=== PATIENT | female | born 1935 | race Two or more races ===

== ENCOUNTER 2019-08-24 12:39 | Inpatient (IN) | payer MEDICAID ==
[~2019-08-24] VITALS: Ht 165.1 cm; Wt 57.6 kg
[~2019-08-24 12:39] MED LIST: ASPIRIN81 MG ORAL; ATENOLOL25 MG ORAL; BENAZEPRIL HCL20 MG ORAL; CA CARBONATE PO; CARBIDOPA-LEVO1 EA12 PO; DOCUSATE SODIU100 MG ORAL; FOLIC ACID1 MG ORAL; LEVAQUIN500 MG ORAL; LOTENSIN40 MG ORAL; SINEMET 10-1001 EACH ORAL; TENORMIN25 MG ORAL; TYLENOL650 MG/20. ORAL; ZOCOR20 MG ORAL
--- NOTE | 2019-08-24 12:50 | NUR ---
ED Nurse Note: patient brought into ED from home by her family members. per family, patient is more confused than usual, patient is unable to swallow juice and sit straight by herself since this morning around 5AM today. patient is alert awake, on a hospital gown, on a monitoring and evaluation advisor. family at bedside.
--- NOTE | 2019-08-24 12:50 | NUR ---
Note neryone in EDM - 08/24/19 at 1417 by CORY ED Nurse Note: patient brought into ED from home by her family members. per family, patient is more confused than usual, patient is unable to swallow juice and sit straight by herself since this morning around 5AM today. patient c/o brougth by family member from home due to weakness. per family member, pt became confused and unable to swallow juice and sit straight herselft since this morning around 0500. at the triage pt able to follow command and oriented x2. BS 251 at the bed side.
[2019-08-24 14:00] VITALS: BP 110/42
[2019-08-24] MEDS ORDERED: AMLODIPINE BES2.5 MG ORAL (14:03)
[2019-08-24] MEDS ORDERED: ATORVASTATIN CA20 MG ORAL (14:03)
--- NOTE | 2019-08-24 14:03 | NUR ---
ED Nurse Note: Faiza ([facility]) [phone]
[2019-08-24 14:04] LABS: HEMATOCRIT 24.8 % (37.0-47.0); HEMOGLOBIN 8.2 G/DL (12.0-16.0); MEAN CORPUSCULAR VOLUME 86 FL (80-99); PLATELET COUNT 323 K/UL (150-450); RED BLOOD COUNT 2.88 M/UL (4.20-5.40); RED CELL DISTRIBUTION WIDTH 11.9 % (11.6-14.8); WHITE BLOOD COUNT 19.5 K/UL (4.8-10.8)
[2019-08-24 14:15] LABS: ANION GAP 10 mmol/L (5-15); BLOOD UREA NITROGEN 28 mg/dL (7-18); CALCIUM 8.7 MG/DL (8.5-10.1); CARBON DIOXIDE 25 MMOL/L (21-32); CHLORIDE 101 MMOL/L (98-107); CREATININE 1.7 MG/DL (0.55-1.30); POTASSIUM 3.8 MMOL/L (3.5-5.1); SODIUM 136 MMOL/L (136-145)
[2019-08-24 14:29] LABS: ALANINE AMINOTRANSFERASE 10 U/L (12-78); ALBUMIN 2.4 G/DL (3.4-5.0); ALBUMIN/GLOBULIN RATIO 0.5 (1.0-2.7); ALKALINE PHOSPHATASE 102 U/L (46-116); ASPARTATE AMINO TRANSFERASE 43 U/L (15-37); BILIRUBIN,TOTAL 0.4 MG/DL (0.2-1.0); CREATINE KINASE 1387 U/L (26-308)
--- NOTE | 2019-08-24 14:45 | Emergency Room Report ---
History of Present Illness General Chief Complaint: Generalized Weakness Source: Family Member, Medical Record Present Illness HPI 84-year-old female presents ED for evaluation. Brought in by family for altered mental status. Per family patient started calling for help around 5 AM today. Per daughter patient appears more lethargic and confused. Normally oriented x2. Ambulates. Upon arrival patient unable to provide any additional history at this time. No signs of distress upon arrival. No other aggravating relieving factors. No other associated symptoms Allergies: Coded Allergies: No Known Allergies (Unverified , 10/23/13) Patient History Past Medical History: DM, HTN, dementia Past Surgical History: none Pertinent Family History: none Social History: Denies: smoking, alcohol use, drug use Now: No Immunizations: UTD Reviewed Nursing Documentation: PMH: Agreed; PSxH: Agreed Nursing Documentation-PMH Past Medical History: No History, Except For Hx Cardiac Problems: Yes Hx Hypertension: Yes Hx Diabetes: Yes Hx Cancer: No Hx Gastrointestinal Problems: Yes Hx Neurological Problems: Yes Hx Parkinson's Disease: Yes Hx Seizures: No - Parkisonism Hx Weakness: Yes - generalized Hx Neurologic Surgery: No Hx Brain Shunt: No Review of Systems All Other Systems: limited Physical Exam Vital Signs Date Time Temp Pulse Resp B/P (MAP) Pulse Ox O2 Delivery O2 Flow Rate FiO2 08/24/19 12:45 97.3 60 10 92/35 (54) 100 Room Air Sp02 EP Interpretation: reviewed, normal General Appearance: cachetic, thin, other - nonverbal Head: normocephalic Eyes: bilateral eye normal inspection, bilateral eye PERRL ENT: normal ENT inspection Neck: normal inspection Respiratory: chest non-tender, lungs clear, normal breath sounds, speaking full sentences Cardiovascular #1: regular rate, rhythm, no edema Gastrointestinal: normal bowel sounds, non tender, soft, non-distended, no guarding, no rebound Rectal: deferred Genitourinary: no CVA tenderness Musculoskeletal: normal inspection Neurologic: other - nonverbal Psychiatric: other - nonverbal Skin: other - see nursing skin notes Lymphatic: normal inspection Procedures Critical Care Time Critical Care Time i. I feel this is a highly complex case requiring extensive working including EKG/Rhythm strip, Xray/CT/US, Blood/urine lab work, repeat exams while in ED, and administration of strong opiates/narcotics for pain control, admission to hospital or close patient follow up. Total time: 60 min bedside evaluation and treatment excludes procedures (EKG). Reason for critical care: hypotension, elevated troponin Possible complications: hypotension, hypertension, NC, shock, arrhythmias, metabolic acidosis, end organ damage, respiratory failure. Interventions: Labs, IV fluids, EKG, chest x-ray, CT head, broad-spectrum antibiotics, IV fluid boluses, heparin Course: Patient brought in by EMS from home. Altered since this morning. CT head negative. WBC elevated, BUN/creatinine elevated control, troponin elevated , UA positive. Given 30 cc/kg fluid bolus. Initially hypotensive improved with IV fluids. Given broad-spectrum antibiotics. Given heparin Consultations: nursing staff, EMS, family Performed by: Dr Brito Tolerated well condition = critical j. because of unstable vital signs this patient had a condition that could potentially threaten life or limb. I feel this is a critical patient who required my full attention while patient was considered critical. Total Critical Care Time excluding procedures was greater than 60 minutes Medical Decision Making Diagnostic Impression: Primary Impression: UTI (lower urinary tract infection) Additional Impressions: AMS (altered mental status) Qualified Codes: R41.82 - Altered mental status, unspecified Renal insufficiency NSTEMI (non-ST elevated myocardial infarction) ER Course Hospital Course 84-year-old female presenting to ED with generalized weakness, weakness since this morning Differential diagnoses include: Pneumonia, UTI, sepsis, dehydration, NC/ unstable angina Clinical course Patient placed on stretcher. On coffee shop aide with hypotension ED course. After initial history and physical, I ordered labs, IV fluids, EKG, chest x-ray , blood cultures, UA. CT head no acute process EKG - LBBB, no acute ischemic changes interpreted by me Labs - BUN/Cr elevated, noted leukocytosis, troponins > 0.6, UA grossly positive for UTI CXR - vascular congestion noted Abx given. Initially hypotensive. Given 30 cc/kg fluid bolus with BP improving. Patient never noted chest pain. Likely demand ischemia. heparin started. Case discussed with Dr Serna and they agreed to admit patient to their service for further care and support I feel this is a highly complex case requiring extensive working including EKG/ Rhythm strip, Xray/CT/US, Blood/urine lab work, repeat exams while in ED, and administration of strong opiates/narcotics for pain control, admission to hospital or close patient follow up. Diagnosis - UTI, AMS, renal insufficiency, NSTEMI Patient admitted to SDU in condition Labs Test 08/24/19 13:25 08/24/19 13:45 08/24/19 14:25 08/24/19 18:50 White Blood Count 19.5 K/UL (4.8-10.8) Red Blood Count 2.88 M/UL (4.20-5.40) Hemoglobin 8.2 G/DL (12.0-16.0) Hematocrit 24.8 % (37.0-47.0) Mean Corpuscular Volume 86 FL (80-99) Mean Corpuscular Hemoglobin 28.4 PG (27.0-31.0) Mean Corpuscular Hemoglobin Concent 32.9 G/DL (32.0-36.0) Red Cell Distribution Width 11.9 % (11.6-14.8) Platelet Count 323 K/UL (150-450) Mean Platelet Volume 5.9 FL (6.5-10.1) Neutrophils (%) (Auto) % (45.0-75.0) Lymphocytes (%) (Auto) % (20.0-45.0) Monocytes (%) (Auto) % (1.0-10.0) Eosinophils (%) (Auto) % (0.0-3.0) Basophils (%) (Auto) % (0.0-2.0) Differential Total Cells Counted 100 Neutrophils % (Manual) 95 % (45-75) Lymphocytes % (Manual) 2 % (20-45) Monocytes % (Manual) 3 % (1-10) Eosinophils % (Manual) 0 % (0-3) Basophils % (Manual) 0 % (0-2) Band Neutrophils 0 % (0-8) Platelet Estimate Adequate Platelet Morphology Normal Hypochromasia 1+ Sodium Level 136 MMOL/L (136-145) Potassium Level 3.8 MMOL/L (3.5-5.1) Chloride Level 101 MMOL/L (98-107) Carbon Dioxide Level 25 MMOL/L (21-32) Anion Gap 10 mmol/L (5-15) Blood Urea Nitrogen 28 mg/dL (7-18) Creatinine 1.7 MG/DL (0.55-1.30) Estimat Glomerular Filtration Rate mL/min (>60) Glucose Level 276 MG/DL (74-106) Lactic Acid Level 1.80 mmol/L (0.4-2.0) Calcium Level 8.7 MG/DL (8.5-10.1) Total Bilirubin 0.4 MG/DL (0.2-1.0) Aspartate Amino Transf (AST/SGOT) 43 U/L (15-37) Alanine Aminotransferase (ALT/SGPT) 10 U/L (12-78) Alkaline Phosphatase 102 U/L (46-116) Total Creatine Kinase 1387 U/L (26-308) Troponin I 0.601 ng/mL (0.000-0.056) 0.636 ng/mL (0.000-0.056) Pro-B-Type Natriuretic Peptide 71487 pg/mL (0-125) Total Protein 7.3 G/DL (6.4-8.2) Albumin 2.4 G/DL (3.4-5.0) Globulin 4.9 g/dL Albumin/Globulin Ratio 0.5 (1.0-2.7) Prothrombin Time 12.3 SEC (9.30-11.50) Prothromb Time International Ratio 1.2 (0.9-1.1) Activated Partial Thromboplast Time 33 SEC (23-33) Urine Color Yellow Urine Appearance Slightly cloudy Urine pH 5 (4.5-8.0) Urine Specific [place] 1.015 (1.005-1.035) Urine Protein 2+ (NEGATIVE) Urine Glucose (UA) 3+ (NEGATIVE) Urine Ketones Negative (NEGATIVE) Urine Blood 4+ (NEGATIVE) Urine Nitrite Negative (NEGATIVE) Urine Bilirubin Negative (NEGATIVE) Urine Urobilinogen Normal MG/DL (0.0-1.0) Urine Leukocyte Esterase 3+ (NEGATIVE) Urine RBC 5-10 /HPF (0 - 2) Urine WBC 30-40 /HPF (0 - 2) Urine Squamous Epithelial Cells Few /LPF (NONE/OCC) Urine Bacteria Moderate /HPF (NONE) Test 08/24/19 21:15 08/25/19 04:45 Activated Partial Thromboplast Time 42 SEC (23-33) 91 SEC (23-33) White Blood Count 24.7 K/UL (4.8-10.8) Red Blood Count 3.11 M/UL (4.20-5.40) Hemoglobin 8.7 G/DL (12.0-16.0) Hematocrit 26.2 % (37.0-47.0) Mean Corpuscular Volume 84 FL (80-99) Mean Corpuscular Hemoglobin 28.1 PG (27.0-31.0) Mean Corpuscular Hemoglobin Concent 33.3 G/DL (32.0-36.0) Red Cell Distribution Width 11.9 % (11.6-14.8) Platelet Count 316 K/UL (150-450) Mean Platelet Volume 6.9 FL (6.5-10.1) Neutrophils (%) (Auto) % (45.0-75.0) Lymphocytes (%) (Auto) % (20.0-45.0) Monocytes (%) (Auto) % (1.0-10.0) Eosinophils (%) (Auto) % (0.0-3.0) Basophils (%) (Auto) % (0.0-2.0) Sodium Level 133 MMOL/L (136-145) Potassium Level 3.6 MMOL/L (3.5-5.1) Chloride Level 104 MMOL/L (98-107) Carbon Dioxide Level 22 MMOL/L (21-32) Anion Gap 7 mmol/L (5-15) Blood Urea Nitrogen 35 mg/dL (7-18) Creatinine 2.0 MG/DL (0.55-1.30) Estimat Glomerular Filtration Rate mL/min (>60) Glucose Level 221 MG/DL (74-106) Calcium Level 8.1 MG/DL (8.5-10.1) Total Bilirubin 0.5 MG/DL (0.2-1.0) Aspartate Amino Transf (AST/SGOT) 68 U/L (15-37) Alanine Aminotransferase (ALT/SGPT) 14 U/L (12-78) Alkaline Phosphatase 85 U/L (46-116) Troponin I 0.707 ng/mL (0.000-0.056) Pro-B-Type Natriuretic Peptide 54595 pg/mL (0-125) Total Protein 6.6 G/DL (6.4-8.2) Albumin 2.1 G/DL (3.4-5.0) Globulin 4.5 g/dL Albumin/Globulin Ratio 0.5 (1.0-2.7) EKG Diagnostic Results Rate: normal Rhythm: NSR ST Segments: other - LBBB ASA given to the pt in ED: No Rhythm Strip Diag. Results EP Interpretation: yes Rhythm: NSR, no PVC's, no ectopy Chest X-Ray Diagnostic Results Chest X-Ray Diagnostic Results : Chest X-Ray Ordered: Yes # of Views/Limited/Complete: 1 View Indication: Other EP Interpretation: Yes Interpretation: no consolidation, no effusion, no pneumothorax, no acute cardiopulmonary disease Impression: Other - vascular congestion Electronically Signed by: Electronically signed by Salomón Brito MD CT/MRI/US Diagnostic Results CT/MRI/US Diagnostic Results : Imaging Test Ordered: CT head Impression FINDINGS: Brain: Unremarkable. No hemorrhage. No significant white matter disease. No edema. No intracranial hemorrhage or mass effect. No clear acute large vessel territorial infarct. Involutional and microvascular ischemic changes.. No ventriculomegaly. Bones/joints: Unremarkable. No acute fracture. Soft tissues: Unremarkable. Sinuses: Unremarkable as visualized. No acute sinusitis. Mastoid air cells: Unremarkable as visualized. No mastoid effusion. Last Vital Signs Date Time Temp Pulse Resp B/P (MAP) Pulse Ox O2 Delivery O2 Flow Rate FiO2 08/24/19 14:00 60 10 Room Air 08/24/19 14:00 97.3 110/42 100 Status: improved Disposition: ADMITTED INPATIENT Condition: Critical Referrals: NON PHYSICIAN (PCP) Salomón Brito MD Aug 24, 2019 14:45
--- NOTE | 2019-08-24 14:45 | Diagnostic Imaging Report ---
EXAM: XR Chest, 1 View CLINICAL HISTORY: AMS TECHNIQUE: Frontal view of the chest. COMPARISON: 01/27/16 FINDINGS: Lungs: Mild vascular congestion. Pleural space: Unremarkable. No pneumothorax. Heart: Borderline cardiomegaly, potentially exaggerated by portable technique. Mediastinum: Calcified aorta. Bones/joints: Osteopenia. Degenerative changes. IMPRESSION: Mild vascular congestion
--- NOTE | 2019-08-24 14:48 | Diagnostic Imaging Report ---
EXAM: CT Head Without Intravenous Contrast CLINICAL HISTORY: AMS TECHNIQUE: Axial computed tomography images of the head/brain without intravenous contrast. CTDI is 62.7 mGy and DLP is 1269.5 mGy-cm. One or more of the following dose reduction techniques were used: automated exposure control, adjustment of the mA and/or kV according to patient size, use of iterative reconstruction technique. COMPARISON: No relevant prior studies available. FINDINGS: Brain: Unremarkable. No hemorrhage. No significant white matter disease. No edema. No intracranial hemorrhage or mass effect. No clear acute large vessel territorial infarct. Involutional and microvascular ischemic changes.. No ventriculomegaly. Bones/joints: Unremarkable. No acute fracture. Soft tissues: Unremarkable. Sinuses: Unremarkable as visualized. No acute sinusitis. Mastoid air cells: Unremarkable as visualized. No mastoid effusion. IMPRESSION: No acute intracranial process
[2019-08-24 15:00] LABS: APPEARANCE,URINE SLIGHTLY CLOUDY; BILIRUBIN, URINE NEGATIVE (NEGATIVE); GLUCOSE, URINE (UA) 3+ (NEGATIVE); KETONES,URINE NEGATIVE (NEGATIVE); LEUKOCYTE ESTERASE ,URINE 3+ (NEGATIVE); NITRITE,URINE NEGATIVE (NEGATIVE); PH,URINE 5 (4.5-8.0); PROTEIN,URINE 2+ (NEGATIVE); UROBILINOGEN,URINE NORMAL MG/DL (0.0-1.0)
[2019-08-24] MEDS ORDERED: Piperacillin/Tazobactam 3.375 GM in NS 110 ML IVPB ONE (15:00)
[2019-08-24 15:06] LABS: INR 1.2 (0.9-1.1)
[2019-08-24 15:07] LABS: COLOR,URINE YELLOW
[2019-08-24] MEDS ORDERED: Heparin 25,000u/D5W 500ml 500 ML IV SCH ×2 (15:15→20:00)
--- NOTE | 2019-08-24 15:31 | NUR ---
ED Nurse Note: heparin drip started on the left AC20G without complication. family at bedside. Zosyn is running on RT AC20G without complication.
--- NOTE | 2019-08-24 15:34 | Cardiac Electrophysiology PN ---
Subjective Subjective [id number] Objective Last 24 Hour Vital Signs Date Time Temp Pulse Resp B/P (MAP) Pulse Ox O2 Delivery O2 Flow Rate FiO2 08/24/19 14:00 60 10 Room Air 08/24/19 14:00 97.3 75 13 110/42 100 Room Air 08/24/19 12:45 97.3 60 10 92/35 (54) 100 Room Air Laboratory Tests Test 08/24/19 13:25 08/24/19 13:45 08/24/19 14:25 White Blood Count 19.5 K/UL (4.8-10.8) H Red Blood Count 2.88 M/UL (4.20-5.40) L Hemoglobin 8.2 G/DL (12.0-16.0) L Hematocrit 24.8 % (37.0-47.0) L Mean Corpuscular Volume 86 FL (80-99) Mean Corpuscular Hemoglobin 28.4 PG (27.0-31.0) Mean Corpuscular Hemoglobin Concent 32.9 G/DL (32.0-36.0) Red Cell Distribution Width 11.9 % (11.6-14.8) Platelet Count 323 K/UL (150-450) Mean Platelet Volume 5.9 FL (6.5-10.1) L Neutrophils (%) (Auto) % (45.0-75.0) Lymphocytes (%) (Auto) % (20.0-45.0) Monocytes (%) (Auto) % (1.0-10.0) Eosinophils (%) (Auto) % (0.0-3.0) Basophils (%) (Auto) % (0.0-2.0) Differential Total Cells Counted 100 Neutrophils % (Manual) 95 % (45-75) H Lymphocytes % (Manual) 2 % (20-45) L Monocytes % (Manual) 3 % (1-10) Eosinophils % (Manual) 0 % (0-3) Basophils % (Manual) 0 % (0-2) Band Neutrophils 0 % (0-8) Platelet Estimate Adequate Platelet Morphology Normal Hypochromasia 1+ Sodium Level 136 MMOL/L (136-145) Potassium Level 3.8 MMOL/L (3.5-5.1) Chloride Level 101 MMOL/L (98-107) Carbon Dioxide Level 25 MMOL/L (21-32) Anion Gap 10 mmol/L (5-15) Blood Urea Nitrogen 28 mg/dL (7-18) H Creatinine 1.7 MG/DL (0.55-1.30) H Estimat Glomerular Filtration Rate mL/min (>60) Glucose Level 276 MG/DL (74-106) H Lactic Acid Level 1.80 mmol/L (0.4-2.0) Calcium Level 8.7 MG/DL (8.5-10.1) Total Bilirubin 0.4 MG/DL (0.2-1.0) Aspartate Amino Transf (AST/SGOT) 43 U/L (15-37) H Alanine Aminotransferase (ALT/SGPT) 10 U/L (12-78) L Alkaline Phosphatase 102 U/L (46-116) Total Creatine Kinase 1387 U/L (26-308) H Troponin I 0.601 ng/mL (0.000-0.056) Pro-B-Type Natriuretic Peptide 34533 pg/mL (0-125) H Total Protein 7.3 G/DL (6.4-8.2) Albumin 2.4 G/DL (3.4-5.0) L Globulin 4.9 g/dL Albumin/Globulin Ratio 0.5 (1.0-2.7) L Prothrombin Time 12.3 SEC (9.30-11.50) H Prothromb Time International Ratio 1.2 (0.9-1.1) H Activated Partial Thromboplast Time 33 SEC (23-33) Urine Color Yellow Urine Appearance Slightly cloudy Urine pH 5 (4.5-8.0) Urine Specific [place] 1.015 (1.005-1.035) Urine Protein 2+ (NEGATIVE) H Urine Glucose (UA) 3+ (NEGATIVE) H Urine Ketones Negative (NEGATIVE) Urine Blood 4+ (NEGATIVE) H Urine Nitrite Negative (NEGATIVE) Urine Bilirubin Negative (NEGATIVE) Urine Urobilinogen Normal MG/DL (0.0-1.0) Urine Leukocyte Esterase 3+ (NEGATIVE) H Urine RBC 5-10 /HPF (0 - 2) H Urine WBC 30-40 /HPF (0 - 2) H Urine Squamous Epithelial Cells Few /LPF (NONE/OCC) Urine Bacteria Moderate /HPF (NONE) H Luis Purdy MD Aug 24, 2019 15:34
--- NOTE | 2019-08-24 15:45 | NUR ---
ED Nurse Note: left foot and left hip unstageable eschar noted, pictures taken.
--- NOTE | 2019-08-24 15:57 | NUR ---
ED Nurse Note: report given to Yenni QUIROS, endorsed all plan of care to Yenni QUIROS.
[2019-08-24 16:00] VITALS: BP 115/62
--- NOTE | 2019-08-24 16:17 | NUR ---
ED Nurse Note: patient transferred to SDU with no belongings, as her belongings were taken by the family members to home. patient tx on ACLS protocol, endorsed all plan of care to Tianna QUIROS.
[2019-08-24 16:42] VITALS: BP 135/72
--- NOTE | 2019-08-24 16:42 | NUR ---
NURSE NOTES Received patient from ISHAAN Bowen from ER. Patient came in via gurney with family member at bedside. teletypesetter monitor initiated. Vital signs taken and recorded No belongings found. Patient is aox2, confused and andorran speaking. Noted wounds, will take pictures and will be uploaded. Noted patient having difficulty breathing. Patient placed on 3 L NC at this time saturation is okay and tolerating well. IV line noted with Heparin drip running. No active bleeding. Under the care of Dr. Butler. Will call Dr. Butler for admission orders.
--- NOTE | 2019-08-24 17:33 | Infectious Diseases Prog Note ---
Assessment/Plan Assessment/Plan Full consult dictated: A) 1) sepsis, uti, leukocytosis 2) pmh noted 3) allergies - nkda P) 1) zosyn 2) check urine culture, bc, labs 3) will follow 4) thank you Subjective Allergies: Coded Allergies: No Known Allergies (Unverified , 10/23/13) Objective Vital Signs Last 24 Hour Vital Signs Date Time Temp Pulse Resp B/P (MAP) Pulse Ox O2 Delivery O2 Flow Rate FiO2 08/24/19 16:17 97.3 72 13 115/62 100 Room Air 08/24/19 16:00 97.3 72 13 115/62 100 Room Air 08/24/19 14:00 60 10 Room Air 08/24/19 14:00 97.3 75 13 110/42 100 Room Air 08/24/19 12:45 97.3 60 10 92/35 (54) 100 Room Air Height (Feet): 5 Height (Inches): 3.00 Weight (Pounds): 108 Laboratory Tests Test 08/24/19 13:25 08/24/19 13:45 08/24/19 14:25 White Blood Count 19.5 K/UL (4.8-10.8) H Red Blood Count 2.88 M/UL (4.20-5.40) L Hemoglobin 8.2 G/DL (12.0-16.0) L Hematocrit 24.8 % (37.0-47.0) L Mean Corpuscular Volume 86 FL (80-99) Mean Corpuscular Hemoglobin 28.4 PG (27.0-31.0) Mean Corpuscular Hemoglobin Concent 32.9 G/DL (32.0-36.0) Red Cell Distribution Width 11.9 % (11.6-14.8) Platelet Count 323 K/UL (150-450) Mean Platelet Volume 5.9 FL (6.5-10.1) L Neutrophils (%) (Auto) % (45.0-75.0) Lymphocytes (%) (Auto) % (20.0-45.0) Monocytes (%) (Auto) % (1.0-10.0) Eosinophils (%) (Auto) % (0.0-3.0) Basophils (%) (Auto) % (0.0-2.0) Differential Total Cells Counted 100 Neutrophils % (Manual) 95 % (45-75) H Lymphocytes % (Manual) 2 % (20-45) L Monocytes % (Manual) 3 % (1-10) Eosinophils % (Manual) 0 % (0-3) Basophils % (Manual) 0 % (0-2) Band Neutrophils 0 % (0-8) Platelet Estimate Adequate Platelet Morphology Normal Hypochromasia 1+ Sodium Level 136 MMOL/L (136-145) Potassium Level 3.8 MMOL/L (3.5-5.1) Chloride Level 101 MMOL/L (98-107) Carbon Dioxide Level 25 MMOL/L (21-32) Anion Gap 10 mmol/L (5-15) Blood Urea Nitrogen 28 mg/dL (7-18) H Creatinine 1.7 MG/DL (0.55-1.30) H Estimat Glomerular Filtration Rate mL/min (>60) Glucose Level 276 MG/DL (74-106) H Lactic Acid Level 1.80 mmol/L (0.4-2.0) Calcium Level 8.7 MG/DL (8.5-10.1) Total Bilirubin 0.4 MG/DL (0.2-1.0) Aspartate Amino Transf (AST/SGOT) 43 U/L (15-37) H Alanine Aminotransferase (ALT/SGPT) 10 U/L (12-78) L Alkaline Phosphatase 102 U/L (46-116) Total Creatine Kinase 1387 U/L (26-308) H Troponin I 0.601 ng/mL (0.000-0.056) Pro-B-Type Natriuretic Peptide 13998 pg/mL (0-125) H Total Protein 7.3 G/DL (6.4-8.2) Albumin 2.4 G/DL (3.4-5.0) L Globulin 4.9 g/dL Albumin/Globulin Ratio 0.5 (1.0-2.7) L Prothrombin Time 12.3 SEC (9.30-11.50) H Prothromb Time International Ratio 1.2 (0.9-1.1) H Activated Partial Thromboplast Time 33 SEC (23-33) Urine Color Yellow Urine Appearance Slightly cloudy Urine pH 5 (4.5-8.0) Urine Specific [place] 1.015 (1.005-1.035) Urine Protein 2+ (NEGATIVE) H Urine Glucose (UA) 3+ (NEGATIVE) H Urine Ketones Negative (NEGATIVE) Urine Blood 4+ (NEGATIVE) H Urine Nitrite Negative (NEGATIVE) Urine Bilirubin Negative (NEGATIVE) Urine Urobilinogen Normal MG/DL (0.0-1.0) Urine Leukocyte Esterase 3+ (NEGATIVE) H Urine RBC 5-10 /HPF (0 - 2) H Urine WBC 30-40 /HPF (0 - 2) H Urine Squamous Epithelial Cells Few /LPF (NONE/OCC) Urine Bacteria Moderate /HPF (NONE) H Current Medications Medications (Trade) Dose Ordered Sig/Krystin Route PRN Reason Start Time Stop Time Status Last Admin Dose Admin Aspirin (ASA) 81 mg DAILY ORAL 08/25/19 09:00 09/24/19 08:59 Heparin Sodium/ Dextrose 500 ml @ 13.063 mls/ hr ADJUST PER PROTOCOL IV 08/24/19 15:15 09/23/19 15:14 08/24/19 15:31 Metoprolol Tartrate (Lopressor) 25 mg EVERY 12 HOURS ORAL 08/24/19 21:00 09/23/19 20:59 Sodium Chloride 1,000 ml @ 200 mls/hr Q5H IV 08/24/19 14:30 09/23/19 14:29 08/24/19 14:51 Gerardo Toledo MD Aug 24, 2019 17:33
--- NOTE | 2019-08-24 18:56 | NUR ---
NURSE NOTES: paged Dr. Garcia's number for admission orders. awaits call back.
--- NOTE | 2019-08-24 19:28 | NUR ---
NURSE NOTES: Received patient from ISHAAN Elder and ISHAAN Becerra. Patient is observed in bed and alert and disoriented, no s/sx of pain noted at this time. Patient is currently on room air with an O2 saturation of 96% noted. No s/sx of respiratory distress noted at this time. in store banker shows SR with current heart rate of 84. No acute cardiac distress noted. Pt is incontinent and complaining of difficultly voiding. Skin alterations noted. Pt is currently pending swallow evaluation. Left AC 20g and Right AC 20g IV catheters noted which remain asymptomatic, intact and patent. R AC is currently infusing Heparin at 12units/kg/hr. No signs or symptoms of active bleeding noted at this time. A small amount of trivedi colored vaginal discharge noted. Per AM shift, is aware of elevated troponin values. Next troponin scheduled. Will ensure lab is drawn on time. Safety and aspiration precautions observed. Bed remains in the lowest position with safety wheels locked, side rails up X3, call light within reach and bed alarm activated. Will continue to monitor.
[2019-08-24 20:00] VITALS: BP 105/53
[2019-08-24] MEDS ORDERED: D5 1/2NS 1,000 ML IV SCH (20:00)
[2019-08-24] MEDS: NovoLOG Insulin Flexpen SUBQ SCH (21:12)
--- NOTE | 2019-08-24 21:15 | Consultation ---
DATE OF CONSULTATION: 08/24/2019 INFECTIOUS DISEASES CONSULTATION CONSULTING PHYSICIAN: Gerardo Toledo M.D. ATTENDING PHYSICIAN: Kendra Bulter M.D. REFERRING PHYSICIAN: Manjinder Brito M.D. REASON FOR CONSULTATION: Sepsis, UTI, leukocytosis. CHIEF COMPLAINT: The patient's chief complaint coming into the hospital was altered mental status, sepsis, leukocytosis, UTI. HISTORY OF PRESENT ILLNESS: This is an 84-year-old female who comes into [facility] with altered mental status and elevated white count, likely septic. She has urinary tract infection and sepsis. Infectious Diseases consultation requested. She has a positive urinalysis. The patient placed on Zosyn for urinary tract infection and sepsis. REVIEW OF SYSTEMS: CONSTITUTIONAL: The patient is not a very good historian. She has generalized fatigue. She has no fevers. No pressors. CARDIAC: No chest pain. GASTROINTESTINAL: No nausea, vomiting, or diarrhea. GENITOURINARY: I did not see a Buckner. PULMONARY: No congestion or shortness of breath. SKIN: No rash. NEUROLOGIC: No seizures. PAST MEDICAL HISTORY: The patient's past medical history includes the following. The patient has a Past Medical History of diabetes, hypertension, dementia, history of Parkinson's, history of weakness. ALLERGIES: No known drug allergies. SOCIAL HISTORY: Negative for smoking, alcohol, drug abuse. FAMILY HISTORY: Noncontributory. MEDICATIONS: Upon reviewing the MAR, she is on following medications. She is on metoprolol, aspirin, heparin. Outside medications were noted and reconciliated. Antibiotic rossi, she will be placed on Zosyn. PHYSICAL EXAMINATION: VITAL SIGNS: Temperature is 97.3, pulse rate 72, respiratory rate 15, blood pressure 115/62, saturation 100% on room air. GENERAL: Alert and responsive, no distress. HEAD AND NECK: Oral exam, no thrush. Eye exam, no icterus. Normocephalic. Neck is supple. HEART: Regular. No gallop or murmur. ABDOMEN: Soft. Positive bowel sounds. Nontender. LUNGS: Clear bilaterally. No rhonchi or rales. SKIN: No rashes. MUSCULOSKELETAL: No effusions. Legs are without cellulitis. PERIPHERAL VASCULAR: No cyanosis. GENITOURINARY: I did not see a Buckner. LINE SITES: Without phlebitis. NEUROLOGIC: Generalized weakness, responsive. LABORATORY DATA: Laboratory data laboratory as follows. UA had 3+ leukocyte esterase, 30 to 40 white blood cells, moderate bacteria. Urine culture and blood cultures are pending. Creatinine 1.7. White count 19.5, hemoglobin 8.2. Chest x-ray showed mild pulmonary vascular congestion. ASSESSMENT AND PLAN: 1. The patient has urinary tract infection, complicated urinary tract infection, sepsis, elevated white count, SIRS criteria. The patient has altered mental status. Continue Zosyn for gram-negative coverage. Continue Zosyn for urinary tract infection, sepsis, elevated white count. Check cultures and labs. Chest x-ray with pulmonary vascular congestion. 2. Acute kidney injury with elevated creatinine. 3. History of diabetes. 4. weakness 5. Blood pressure treatment per primary care team and diabetes treatment per primary care team and consultants. 6. Parkinson's. 7. Dementia. 8. The patient does have also elevated troponin. Cardiology follow-up. 9. MAR was noted. 10. Case was discussed with RN. 11. No known allergies. 12. Social history is negative. 13. Family history is noncontributory. 14. Continue treatment per primary consultants. 15. Orders were noted and entered. Gerardo Toledo M.D. DR: Kris JOB#: [id number] CC: LILY
[2019-08-24] MEDS ORDERED: Heparin 5000 units/ml inj IV SCH (22:00)
[2019-08-24] MEDS: Heparin 25,000u/D5W 500ml 500 ML IV SCH (22:04)
--- NOTE | 2019-08-24 23:04 | NUR ---
NURSE NOTES: Assessed patient for signs/sx of bleeding, none noted at this time. ptt came back outside of therapeutic ranged; bolused 4,000 units of heparin and increased rate to 16units/kg/hr as ordered. Ordered timed ptt in 6hrs per protocol. Will continue to monitor.
--- NOTE | 2019-08-24 23:10 | NUR ---
NURSE NOTES: D5W discontinued as ordered, insulin was given prior to order to discontinue fluids. Re-checked bedside BG, BG remains 173 and pt remains free from signs/sx of hypoglycemia. Will continue to monitor.
--- NOTE | 2019-08-24 23:15 | Consultation ---
DATE OF CONSULTATION: 08/24/2019 CARDIOLOGY CONSULTATION CONSULTING PHYSICIAN: Luis Purdy M.D. REFERRING PHYSICIAN: Kendra Butler M.D. REASON FOR CONSULTATION: Management of hypertension and elevated troponin in the patient with left bundle-branch block. HISTORY OF PRESENT ILLNESS: The patient is an 84-year-old lady from [facility] with history of hypertension, diabetes, and Parkinson disease, who was brought to the emergency room by family member for altered mental status and weakness. The patient started about 5 o'clock this morning and appeared to be confused and lethargic. The patient did not have any chest pain or shortness of breath. In the emergency room, the patient was found to be in sinus rhythm with complete left bundle-branch block and troponin was elevated. Cardiology consultation was obtained for further evaluation and management. REVIEW OF SYSTEMS: Negative other than what was mentioned in history of present illness. PAST MEDICAL HISTORY: As mentioned above. FAMILY HISTORY: Noncontributory. SOCIAL HISTORY: She lives at home. Does not smoke or drink alcohol. PHYSICAL EXAMINATION: VITAL SIGNS: Show blood pressure 110/42, pulse 76, respirations 14, and she is afebrile. HEAD AND NECK: Shows no JVD or carotid bruits. LUNGS: Clear. CARDIOVASCULAR: Shows regular S1 and S2 with no gallop or murmur. ABDOMEN: Soft. EXTREMITIES: No pitting edema. LABORATORY DATA: Labs show white count of 19.5, hemoglobin 8.2, hematocrit 24.8, and platelet count of 323,000. Sodium 132, potassium 3.8, BUN of 28, creatinine 1.7, and glucose 276. CK 1387, troponin 0.6, and BNP is 24,000. ASSESSMENT AND PLAN: 1. Elevated troponin, could be due to renal failure. BUN is 28 and creatinine 1.7. We will rule out acute coronary syndrome especially in view of underlying left bundle-branch block. We will complete rule-out ND protocol and get an echocardiogram to evaluate for ejection fraction and wall motion abnormality. In the meantime, I will start the patient on aspirin and beta-lisbeth, and hold off on the statin in view of rhabdomyolysis. 2. Hypertension. We will start the patient on Lopressor 25 mg b.i.d. 3. Renal failure. Creatinine of 1.7. 4. Uncontrolled diabetes. 5. Heart failure. BNP of more than 24,000. Again, echocardiogram will be ordered for further evaluation. 6. Urinary tract infection, on IV antibiotic. Thank you very much for allowing me to participate in the care of this patient. Please do not hesitate to contact me for any questions regarding my evaluation. Luis Purdy M.D. DR: True JOB#: [id number] CC:
--- NOTE | 2019-08-24 23:30 | NUR ---
NURSE NOTES: Pt unable to participate in voiding and urine collection. 16 citizen [place] arnold catheter placed as ordered. Yellow urine draining to gravity in collection bag. Pt tolerated care well and continues resting in bed. Bed remains in the lowest position, safety breaks engaged, side rails up x3, bed alarm activated and call light within reach. Will continue to monitor.
[2019-08-25] VITALS: BP 101/44
--- NOTE | 2019-08-25 01:15 | NUR ---
NURSE NOTES: Pt provided with bed bath, oral care and linen change. Pt tolerated care well. No bowel movement noted and therefore unable to collect stool sample for lab. Pt noted to have minimal secretions by RT and unable to collect sputum sample at this time. Will reattempt later. Pt noted to have blanchable redness on bilateral greater trochanters, applied Optifoam for protection. Bed remains in the lowest position with safety wheels engaged locked, side rails up X3, call light within reach and bed alarm activated. Will continue to monitor.
--- NOTE | 2019-08-25 01:45 | NUR ---
NURSE NOTES: Paged primary MD; pt is in severe pain, no PRN pain medications ordered. Will await call back and call again per protocol if needed. Will continue to monitor.
--- NOTE | 2019-08-25 02:01 | NUR ---
NURSE NOTES: Pt reports pain is resolving and declines pain medication. Still awaiting a call back from MD. Pt currently now sleeping in bed; bed remains in the lowest position, safety wheels engaged, bed alarm activated, side rail up x3 and call light within reach. Will continue to monitor.
[2019-08-25 04:00] VITALS: BP 104/52
--- NOTE | 2019-08-25 04:39 | NUR ---
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 Will continue to monitor.
[2019-08-25 04:54] LABS: HEMATOCRIT 26.2 % (37.0-47.0); HEMOGLOBIN 8.7 G/DL (12.0-16.0); MEAN CORPUSCULAR VOLUME 84 FL (80-99); PLATELET COUNT 316 K/UL (150-450); RED BLOOD COUNT 3.11 M/UL (4.20-5.40); RED CELL DISTRIBUTION WIDTH 11.9 % (11.6-14.8)
[2019-08-25 04:59] LABS: WHITE BLOOD COUNT 24.7 K/UL (4.8-10.8)
[2019-08-25 05:23] LABS: ALANINE AMINOTRANSFERASE 14 U/L (12-78); ALBUMIN 2.1 G/DL (3.4-5.0); ALBUMIN/GLOBULIN RATIO 0.5 (1.0-2.7); ALKALINE PHOSPHATASE 85 U/L (46-116); ANION GAP 7 mmol/L (5-15); ASPARTATE AMINO TRANSFERASE 68 U/L (15-37); BILIRUBIN,TOTAL 0.5 MG/DL (0.2-1.0); BLOOD UREA NITROGEN 35 mg/dL (7-18); CALCIUM 8.1 MG/DL (8.5-10.1); CARBON DIOXIDE 22 MMOL/L (21-32); CHLORIDE 104 MMOL/L (98-107); POTASSIUM 3.6 MMOL/L (3.5-5.1); SODIUM 133 MMOL/L (136-145)
[2019-08-25] MEDS: NovoLOG Insulin Flexpen SUBQ SCH ×4 (05:50→21:00)
--- NOTE | 2019-08-25 06:31 | NUR ---
NURSE NOTES: Called cardiology with EKG results and to notify troponin trending upward, latest troponin 0.707 Will await call back. Will continue to monitor.
--- NOTE | 2019-08-25 06:34 | NUR ---
NURSE NOTES: Left message for ID regarding WBC increase to 24.7 from 19.5 Will await call back. Will continue to monitor.
--- NOTE | 2019-08-25 07:12 | NUR ---
NURSE NOTES: Report given to ISHAAN Bull.Pt remains stable at this time.
--- NOTE | 2019-08-25 07:16 | NUR ---
NURSE NOTES: ID returned call, start vancomycin 1 gm pharmacy to dose. Will carry out orders.
--- NOTE | 2019-08-25 07:30 | NUR ---
NURSE NOTES: Received bedside report from Suzy Garcia RN. Pt. in bed, awake, confused. No sign of distress. Denies pain at present. On Heparin drip at 16u/kg/hr. at present and per previous shift the last PTT is therapeutic level. IV site at left and right AC #20g. in placed patent/intact. Bed in low position, locked. Call light within reach. Will cont. to monitor.
[2019-08-25 08:00] VITALS: BP 107/47
[2019-08-25] MEDS: Aspirin Baby 81mg ORAL SCH (09:09)
[2019-08-25] MEDS: Levodopa/Carbidopa 10/100 tab ORAL SCH ×3 (09:09→18:59)
[2019-08-25] MEDS ORDERED: Vancomycin 1.25gm/NS Premix q24h IVPB SCH (10:00)
--- NOTE | 2019-08-25 10:50 | History and Physical ---
History of Present Illness General Date patient seen: Aug 25, 2019 Reason for Hospitalization: Generalized Weakness Present Illness HPI 84-year-old lady from [facility] with history of hypertension, diabetes, and Parkinson disease, who was brought to the emergency room by family member for altered mental status and weakness. Found to have sepsis due to UTI and NSTEMI. Family reports that pt became acutely altered and confused prompting them to bring her to the hospital. Pt is a poor historian due to her acute medical condition and the history is obtained from the chart. In the ED pt was found to be confused below her baseline (a&0 x 2 normally), hypotensive ( fluid responsive), hypothermic. Labs were sig for leukocytosis (24), UA c/w UTI , elevated tn (0.6), ekg non ischemic, elevated BNP (42972). Lactate wnl. CTB unremarkable. CXR w/ PVC. BLood and urine cx were drawn and pt started on empiric zosyn. Overnight pt has remained HDS. Evaluated by Cards and ID. Serial Tn stable on hep gtt, received asa. Abx expanded to Vanco/Zosyn and urine cx growing GNR > 100k cfu. Remains confused. Reported pain overnight but denies this am. Unable to obtain social and family history due to ams. Allergies: Coded Allergies: No Known Allergies (Unverified , 10/23/13) Medication History Scheduled Amlodipine Besylate* (Amlodipine Besylate*), 2.5 MG ORAL DAILY, (Reported) Atorvastatin Calcium* (Atorvastatin Calcium*), 20 MG ORAL BEDTIME, (Reported) Benazepril Hcl* (Benazepril Hcl*), 20 MG ORAL DAILY, (Reported) Carbidopa/Levodopa* (Sinemet 10-100 Mg Tablet*), 1 TAB ORAL THREE TIMES A DAY, ( Reported) Discontinued Medications Acetaminophen (Acetaminophen), 325 MG ORAL BID PRN for For Pain, (Reported) Discontinued Reason: Therapy completed Aspirin* (Aspirin*), 81 MG ORAL DAILY, (Reported) Discontinued Reason: Therapy completed Atenolol* (Tenormin*), 25 MG ORAL DAILY, (Reported) Discontinued Reason: Therapy completed Docusate Sodium* (Docusate Sodium*), 100 MG ORAL BID PRN for Constipation, ( Reported) Discontinued Reason: Therapy completed Folic Acid* (Folic Acid*), 1 MG ORAL DAILY, (Reported) Discontinued Reason: Therapy completed Levofloxacin* (Levaquin*), 500 MG ORAL DAILY, (Reported) Discontinued Reason: Therapy completed Simvastatin (Zocor), 20 MG ORAL BEDTIME, (Reported) Discontinued Reason: Therapy completed [ca carbonate], 1,250 MG PO TWICE A DAY, (Reported) Discontinued Reason: Therapy completed Patient History Limited by: medical condition - ams Healthcare decision maker Resuscitation status Full Code Advanced Directive on File Review of Systems ROS Narrative UTO due to ams. Physical Exam General Appearance: WD/WN, no apparent distress, lethargic, confused HEENT: normocephalic, atraumatic, PERRL, EOMI, supple, no JVD Neck: non-tender, normal alignment, supple Respiratory/Chest: chest wall non-tender, lungs clear, normal breath sounds, no respiratory distress, no accessory muscle use Cardiovascular/Chest: normal peripheral pulses, normal rate, regular rhythm, no gallop/murmur, no JVD Abdomen: non tender, soft, no organomegaly Extremities: no edema, no cyanosis Neurologic: disoriented Last 24 Hour Vital Signs Date Time Temp Pulse Resp B/P (MAP) Pulse Ox O2 Delivery O2 Flow Rate FiO2 08/25/19 09:00 82 107/47 08/25/19 07:45 81 08/25/19 04:00 Room Air 08/25/19 04:00 98.2 78 20 104/52 (69) 97 08/25/19 03:26 82 08/25/19 00:00 Room Air 08/25/19 00:00 98.2 84 20 101/44 (63) 98 08/24/19 23:33 86 08/24/19 20:00 97.7 84 18 105/53 (70) 98 08/24/19 20:00 Room Air 08/24/19 19:45 85 08/24/19 17:31 Nasal Cannula 3.0 08/24/19 16:42 96.4 83 16 135/72 (93) 98 08/24/19 16:17 97.3 72 13 115/62 100 Room Air 08/24/19 16:00 97.3 72 13 115/62 100 Room Air 08/24/19 14:00 60 10 Room Air 08/24/19 14:00 97.3 75 13 110/42 100 Room Air 08/24/19 12:45 97.3 60 10 92/35 (54) 100 Room Air Intake and Output 08/24/19 08/25/19 19:00 07:00 Intake Total 13.063 ml 338.291 ml Output Total 200 ml Balance 13.063 ml 138.291 ml Intake IV Total 13.063 ml 338.291 ml Output Urine Total 200 ml # Voids 1 # Bowel Movements 2 Laboratory Tests Test 08/24/19 13:25 08/24/19 13:45 08/24/19 14:25 08/24/19 18:50 White Blood Count 19.5 K/UL (4.8-10.8) H Red Blood Count 2.88 M/UL (4.20-5.40) L Hemoglobin 8.2 G/DL (12.0-16.0) L Hematocrit 24.8 % (37.0-47.0) L Mean Corpuscular Volume 86 FL (80-99) Mean Corpuscular Hemoglobin 28.4 PG (27.0-31.0) Mean Corpuscular Hemoglobin Concent 32.9 G/DL (32.0-36.0) Red Cell Distribution Width 11.9 % (11.6-14.8) Platelet Count 323 K/UL (150-450) Mean Platelet Volume 5.9 FL (6.5-10.1) L Neutrophils (%) (Auto) % (45.0-75.0) Lymphocytes (%) (Auto) % (20.0-45.0) Monocytes (%) (Auto) % (1.0-10.0) Eosinophils (%) (Auto) % (0.0-3.0) Basophils (%) (Auto) % (0.0-2.0) Differential Total Cells Counted 100 Neutrophils % (Manual) 95 % (45-75) H Lymphocytes % (Manual) 2 % (20-45) L Monocytes % (Manual) 3 % (1-10) Eosinophils % (Manual) 0 % (0-3) Basophils % (Manual) 0 % (0-2) Band Neutrophils 0 % (0-8) Platelet Estimate Adequate Platelet Morphology Normal Hypochromasia 1+ Sodium Level 136 MMOL/L (136-145) Potassium Level 3.8 MMOL/L (3.5-5.1) Chloride Level 101 MMOL/L (98-107) Carbon Dioxide Level 25 MMOL/L (21-32) Anion Gap 10 mmol/L (5-15) Blood Urea Nitrogen 28 mg/dL (7-18) H Creatinine 1.7 MG/DL (0.55-1.30) H Estimat Glomerular Filtration Rate mL/min (>60) Glucose Level 276 MG/DL (74-106) H Lactic Acid Level 1.80 mmol/L (0.4-2.0) Calcium Level 8.7 MG/DL (8.5-10.1) Total Bilirubin 0.4 MG/DL (0.2-1.0) Aspartate Amino Transf (AST/SGOT) 43 U/L (15-37) H Alanine Aminotransferase (ALT/SGPT) 10 U/L (12-78) L Alkaline Phosphatase 102 U/L (46-116) Total Creatine Kinase 1387 U/L (26-308) H Troponin I 0.601 ng/mL (0.000-0.056) 0.636 ng/mL (0.000-0.056) Pro-B-Type Natriuretic Peptide 65044 pg/mL (0-125) H Total Protein 7.3 G/DL (6.4-8.2) Albumin 2.4 G/DL (3.4-5.0) L Globulin 4.9 g/dL Albumin/Globulin Ratio 0.5 (1.0-2.7) L Prothrombin Time 12.3 SEC (9.30-11.50) H Prothromb Time International Ratio 1.2 (0.9-1.1) H Activated Partial Thromboplast Time 33 SEC (23-33) Urine Color Yellow Urine Appearance Slightly cloudy Urine pH 5 (4.5-8.0) Urine Specific [place] 1.015 (1.005-1.035) Urine Protein 2+ (NEGATIVE) H Urine Glucose (UA) 3+ (NEGATIVE) H Urine Ketones Negative (NEGATIVE) Urine Blood 4+ (NEGATIVE) H Urine Nitrite Negative (NEGATIVE) Urine Bilirubin Negative (NEGATIVE) Urine Urobilinogen Normal MG/DL (0.0-1.0) Urine Leukocyte Esterase 3+ (NEGATIVE) H Urine RBC 5-10 /HPF (0 - 2) H Urine WBC 30-40 /HPF (0 - 2) H Urine Squamous Epithelial Cells Few /LPF (NONE/OCC) Urine Bacteria Moderate /HPF (NONE) H Test 08/24/19 21:15 08/25/19 04:45 Activated Partial Thromboplast Time 42 SEC (23-33) H 91 SEC (23-33) H White Blood Count 24.7 K/UL (4.8-10.8) *H Red Blood Count 3.11 M/UL (4.20-5.40) L Hemoglobin 8.7 G/DL (12.0-16.0) L Hematocrit 26.2 % (37.0-47.0) L Mean Corpuscular Volume 84 FL (80-99) Mean Corpuscular Hemoglobin 28.1 PG (27.0-31.0) Mean Corpuscular Hemoglobin Concent 33.3 G/DL (32.0-36.0) Red Cell Distribution Width 11.9 % (11.6-14.8) Platelet Count 316 K/UL (150-450) Mean Platelet Volume 6.9 FL (6.5-10.1) Neutrophils (%) (Auto) % (45.0-75.0) Lymphocytes (%) (Auto) % (20.0-45.0) Monocytes (%) (Auto) % (1.0-10.0) Eosinophils (%) (Auto) % (0.0-3.0) Basophils (%) (Auto) % (0.0-2.0) Differential Total Cells Counted 100 Neutrophils % (Manual) 94 % (45-75) H Lymphocytes % (Manual) 3 % (20-45) L Monocytes % (Manual) 3 % (1-10) Eosinophils % (Manual) 0 % (0-3) Basophils % (Manual) 0 % (0-2) Band Neutrophils 0 % (0-8) Platelet Estimate Adequate Platelet Morphology Normal Hypochromasia 1+ Sodium Level 133 MMOL/L (136-145) L Potassium Level 3.6 MMOL/L (3.5-5.1) Chloride Level 104 MMOL/L (98-107) Carbon Dioxide Level 22 MMOL/L (21-32) Anion Gap 7 mmol/L (5-15) Blood Urea Nitrogen 35 mg/dL (7-18) H Creatinine 2.0 MG/DL (0.55-1.30) H Estimat Glomerular Filtration Rate mL/min (>60) Glucose Level 221 MG/DL (74-106) H Calcium Level 8.1 MG/DL (8.5-10.1) L Total Bilirubin 0.5 MG/DL (0.2-1.0) Aspartate Amino Transf (AST/SGOT) 68 U/L (15-37) H Alanine Aminotransferase (ALT/SGPT) 14 U/L (12-78) Alkaline Phosphatase 85 U/L (46-116) Troponin I 0.707 ng/mL (0.000-0.056) Pro-B-Type Natriuretic Peptide 15254 pg/mL (0-125) H Total Protein 6.6 G/DL (6.4-8.2) Albumin 2.1 G/DL (3.4-5.0) L Globulin 4.5 g/dL Albumin/Globulin Ratio 0.5 (1.0-2.7) L Microbiology Date/Time Source Procedure Growth Status 08/24/19 13:35 Blood Blood Culture - Preliminary Resulted 08/24/19 13:25 Blood Blood Culture - Preliminary Resulted 08/24/19 14:25 Urine,Clean Catch Urine Culture - Preliminary Gram Negative Guillermo Resulted Height (Feet): 5 Height (Inches): 3.00 Weight (Pounds): 113 Medications Current Medications Medications (Trade) Dose Ordered Sig/Krystin Route PRN Reason Start Time Stop Time Status Last Admin Dose Admin Aspirin (ASA) 81 mg DAILY ORAL 08/25/19 09:00 09/24/19 08:59 08/25/19 09:09 Carbidopa/Levodopa (Sinemet 10/100) 1 tab THREE TIMES A DAY ORAL 08/25/19 09:00 09/24/19 08:59 08/25/19 09:09 Dextrose (Dextrose 50%) 25 ml Q30M PRN IV Hypoglycemia 08/24/19 19:15 09/23/19 19:14 Dextrose (Dextrose 50%) 50 ml Q30M PRN IV Hypoglycemia 08/24/19 19:15 09/23/19 19:14 Heparin Sodium/ Dextrose 500 ml @ 15.676 mls/ hr ADJUST PER PROTOCOL IV 08/24/19 22:00 09/23/19 21:59 08/24/19 22:04 Insulin Aspart (NovoLOG) BEFORE MEALS AND HS SUBQ 08/24/19 21:00 09/23/19 20:59 08/24/19 21:12 Metoprolol Tartrate (Lopressor) 25 mg EVERY 12 HOURS ORAL 08/24/19 21:00 09/23/19 20:59 Piperacillin Sod/ Tazobactam Sod 3.375 gm/Dextrose 110 ml @ 27.5 mls/hr Q12HR@0600,1800 IVPB 08/25/19 18:00 09/01/19 17:59 Vancomycin HCl (Vanco rx to dose) 1 ea DAILY PRN MISC Per rx protocol 08/25/19 07:30 09/24/19 07:29 Vancomycin/Sodium Chloride 275 ml @ 183.333 mls/hr ONCE IVPB 08/25/19 10:00 08/25/19 12:00 08/25/19 09:15 Assessment/Plan Problem List: (1) NSTEMI (non-ST elevated myocardial infarction) ICD Codes: I21.4 - Non-ST elevation (NSTEMI) myocardial infarction SNOMED: 27100901, 604681353 (2) Sepsis (3) UTI (lower urinary tract infection) (4) Toxic metabolic encephalopathy ICD Codes: G92 - Toxic encephalopathy SNOMED: 887899316 (5) OWEN (acute kidney injury) ICD Codes: N17.9 - Acute kidney failure, unspecified SNOMED: 6553068, 15719684 (6) Suspected acute on chronic CHF (7) HTN (hypertension) ICD Codes: I10 - HTN (hypertension) SNOMED: 90308807 (8) Frailty ICD Codes: R54 - Frailty SNOMED: 103400017 (9) Weakness generalized ICD Codes: R53.1 - Asthenia SNOMED: 65682467 (10) Parkinson disease ICD Codes: G20 - Parkinson disease SNOMED: 29952932 (11) Diabetes ICD Codes: E11.9 - Diabetes SNOMED: 32585049 Status: stable Assessment/Plan: Assessment: 84-year-old lady from [facility] with history of hypertension, diabetes, and Parkinson disease, who was brought to the emergency room by family member for altered mental status and weakness. Found to have sepsis due to UTI and NSTEMI. Plan: - admit to in pt - PCU level of care - cardiology consult - heparin gtt per acs protocol - trend tn/ekg - TTE - hold IVF at this time pending eval of volume status on echo - s/p lasix 20 IV x on admit - asa, mtp - ID consult - c/w empiric vanco/zosyn - follow urine and blood cx's - c/w PD regimen - insulin sliding scale ac/hs - NPO pending swallow evaluation (cough w/ water on admit) - supportive care - delirium precautions Time of this note may not reflect the time of the clinical encounter. Manjinder Brito MD Aug 25, 2019 10:50
--- NOTE | 2019-08-25 10:50 | NUR ---
NURSE NOTES: Pt. seen by Dr. Brito. Notified Dr. Brito regarding pt. urine output at previous shift 200ml. Pt. NPO. Pt. hx CHF. NNO.
[2019-08-25 12:00] VITALS: BP 119/53
[2019-08-25] MEDS ORDERED: NS 275ml ONE (14:13)
[2019-08-25] MEDS ORDERED: D5 1/2NS 1000ml IV ONE (14:13)
[2019-08-25] MEDS ORDERED: Tubing IV Secondary IV ONE (14:13)
--- NOTE | 2019-08-25 15:40 | Consultation ---
History of Present Illness General Date patient seen: Aug 25, 2019 Reason for Hospitalization: Generalized Weakness Present Illness HPI 84-year-old female with past medical history of hypertension, diabetes, and Parkinson disease, who was brought to the emergency room by family member for altered mental status and weakness. Patient was noted to have sepsis due to UTI and NSTEMI. Family reports that pt became acutely altered and confused prompting them to bring her to the hospital. Pt is a poor historian due to her acute medical condition and the history is obtained from the chart and pcp. Patient was admitted for work up, care and management. on admission noted to have multiple decubitus ulcers, abnormal labs, exam unreliable given medical condition, and surgery called to evaluate and assist with care. patient seen, chart reviewed, patient examined. Allergies: Coded Allergies: No Known Allergies (Unverified , 10/23/13) Medication History Scheduled Amlodipine Besylate* (Amlodipine Besylate*), 2.5 MG ORAL DAILY, (Reported) Atorvastatin Calcium* (Atorvastatin Calcium*), 20 MG ORAL BEDTIME, (Reported) Benazepril Hcl* (Benazepril Hcl*), 20 MG ORAL DAILY, (Reported) Carbidopa/Levodopa* (Sinemet 10-100 Mg Tablet*), 1 TAB ORAL THREE TIMES A DAY, ( Reported) Discontinued Medications Acetaminophen (Acetaminophen), 325 MG ORAL BID PRN for For Pain, (Reported) Discontinued Reason: Therapy completed Aspirin* (Aspirin*), 81 MG ORAL DAILY, (Reported) Discontinued Reason: Therapy completed Atenolol* (Tenormin*), 25 MG ORAL DAILY, (Reported) Discontinued Reason: Therapy completed Docusate Sodium* (Docusate Sodium*), 100 MG ORAL BID PRN for Constipation, ( Reported) Discontinued Reason: Therapy completed Folic Acid* (Folic Acid*), 1 MG ORAL DAILY, (Reported) Discontinued Reason: Therapy completed Levofloxacin* (Levaquin*), 500 MG ORAL DAILY, (Reported) Discontinued Reason: Therapy completed Simvastatin (Zocor), 20 MG ORAL BEDTIME, (Reported) Discontinued Reason: Therapy completed [ca carbonate], 1,250 MG PO TWICE A DAY, (Reported) Discontinued Reason: Therapy completed Patient History Limited by: medical condition History Provided By: Medical Record, PMD Healthcare decision maker Resuscitation status Full Code Advanced Directive on File Past Medical/Surgical History Past Medical/Surgical History: (1) Dehydration (2) ATN (acute tubular necrosis) (3) Urinary obstruction (4) CVA (cerebral vascular accident) (5) Urinary retention (6) Renal insufficiency (7) NSTEMI (non-ST elevated myocardial infarction) (8) UTI (lower urinary tract infection) (9) AMS (altered mental status) (10) Weakness generalized (11) Diabetes (12) Parkinson disease (13) Sepsis (14) HTN (hypertension) (15) Frailty (16) OWEN (acute kidney injury) (17) Toxic metabolic encephalopathy (18) Suspected acute on chronic CHF Review of Systems Review of Symptoms General ROS: no weight loss or fever Psychological ROS: no depression or mood changes, no memory loss Ophthalmic ROS: no visual changes or eye irritation ENT ROS: no nasal congestion, hearing loss, dizziness Allergy and Immunology ROS: no allergic symptoms or urticaria Hematological and Lymphatic ROS: no swollen glands, unusual bleeding or bruising Endocrine ROS: no polyuria, polydipsia, weight changes, temperature intolerance Respiratory ROS: no cough, shortness of breath, or wheezing Cardiovascular ROS: no chest pain or dyspnea on exertion Gastrointestinal ROS: denies abdominal pain, bright red blood in stool. Musculoskeletal ROS: no myalgias or arthralgias Neurological ROS: no TIA or stroke symptoms Dermatological ROS: no new or changing skin lesions, rashes or pruritis Physical Exam Physical Exam General appearance: alert, cooperative, no distress, appears stated age Head: Normocephalic, without obvious abnormality, atraumatic Eyes: conjunctivae/corneas clear. PERRL, EOM's intact. Fundi benign Throat: Lips, mucosa, and tongue normal. Teeth and gums normal Neck: supple, symmetrical, trachea midline, no adenopathy, thyroid: not enlarged, symmetric, no tenderness/mass/nodules, no carotid bruit and no JVD Lungs: clear to auscultation bilaterally Heart: regular rate and rhythm, S1, S2 normal, no murmur, click, rub or gallop Abdomen: soft, non-tender. Bowel sounds normal. No masses, no organomegaly Extremities: extremities normal, atraumatic, no cyanosis or edema Pulses: 2+ and symmetric Skin: Skin color, texture, turgor normal. No rashes or lesions Neurologic: Grossly normal Last 24 Hour Vital Signs Date Time Temp Pulse Resp B/P (MAP) Pulse Ox O2 Delivery O2 Flow Rate FiO2 1/19/20 12:00 Room Air 08/25/19 12:00 97.7 85 20 119/53 (75) 98 08/25/19 11:47 81 08/25/19 09:00 82 107/47 08/25/19 08:00 Room Air 08/25/19 08:00 98.6 82 19 107/47 (67) 100 08/25/19 07:45 81 08/25/19 04:00 Room Air 08/25/19 04:00 98.2 78 20 104/52 (69) 97 08/25/19 03:26 82 08/25/19 00:00 Room Air 08/25/19 00:00 98.2 84 20 101/44 (63) 98 08/24/19 23:33 86 08/24/19 20:00 97.7 84 18 105/53 (70) 98 08/24/19 20:00 Room Air 08/24/19 19:45 85 08/24/19 17:31 Nasal Cannula 3.0 08/24/19 16:42 96.4 83 16 135/72 (93) 98 08/24/19 16:17 97.3 72 13 115/62 100 Room Air 08/24/19 16:00 97.3 72 13 115/62 100 Room Air Intake and Output 08/24/19 08/25/19 19:00 07:00 Intake Total 13.063 ml 338.291 ml Output Total 200 ml Balance 13.063 ml 138.291 ml Intake IV Total 13.063 ml 338.291 ml Output Urine Total 200 ml # Voids 1 # Bowel Movements 2 Laboratory Tests Test 08/24/19 18:50 08/24/19 21:15 08/25/19 04:45 Troponin I 0.636 ng/mL (0.000-0.056) 0.707 ng/mL (0.000-0.056) Activated Partial Thromboplast Time 42 SEC (23-33) H 91 SEC (23-33) H White Blood Count 24.7 K/UL (4.8-10.8) *H Red Blood Count 3.11 M/UL (4.20-5.40) L Hemoglobin 8.7 G/DL (12.0-16.0) L Hematocrit 26.2 % (37.0-47.0) L Mean Corpuscular Volume 84 FL (80-99) Mean Corpuscular Hemoglobin 28.1 PG (27.0-31.0) Mean Corpuscular Hemoglobin Concent 33.3 G/DL (32.0-36.0) Red Cell Distribution Width 11.9 % (11.6-14.8) Platelet Count 316 K/UL (150-450) Mean Platelet Volume 6.9 FL (6.5-10.1) Neutrophils (%) (Auto) % (45.0-75.0) Lymphocytes (%) (Auto) % (20.0-45.0) Monocytes (%) (Auto) % (1.0-10.0) Eosinophils (%) (Auto) % (0.0-3.0) Basophils (%) (Auto) % (0.0-2.0) Differential Total Cells Counted 100 Neutrophils % (Manual) 94 % (45-75) H Lymphocytes % (Manual) 3 % (20-45) L Monocytes % (Manual) 3 % (1-10) Eosinophils % (Manual) 0 % (0-3) Basophils % (Manual) 0 % (0-2) Band Neutrophils 0 % (0-8) Platelet Estimate Adequate Platelet Morphology Normal Hypochromasia 1+ Sodium Level 133 MMOL/L (136-145) L Potassium Level 3.6 MMOL/L (3.5-5.1) Chloride Level 104 MMOL/L (98-107) Carbon Dioxide Level 22 MMOL/L (21-32) Anion Gap 7 mmol/L (5-15) Blood Urea Nitrogen 35 mg/dL (7-18) H Creatinine 2.0 MG/DL (0.55-1.30) H Estimat Glomerular Filtration Rate mL/min (>60) Glucose Level 221 MG/DL (74-106) H Calcium Level 8.1 MG/DL (8.5-10.1) L Total Bilirubin 0.5 MG/DL (0.2-1.0) Aspartate Amino Transf (AST/SGOT) 68 U/L (15-37) H Alanine Aminotransferase (ALT/SGPT) 14 U/L (12-78) Alkaline Phosphatase 85 U/L (46-116) Pro-B-Type Natriuretic Peptide 07585 pg/mL (0-125) H Total Protein 6.6 G/DL (6.4-8.2) Albumin 2.1 G/DL (3.4-5.0) L Globulin 4.5 g/dL Albumin/Globulin Ratio 0.5 (1.0-2.7) L Height (Feet): 5 Height (Inches): 3.00 Weight (Pounds): 113 Medications Current Medications Medications (Trade) Dose Ordered Sig/Krystin Route PRN Reason Start Time Stop Time Status Last Admin Dose Admin Acetaminophen (Tylenol) 650 mg Q4H PRN ORAL Mild Pain/Temp > 100.5 08/25/19 12:45 09/24/19 12:44 Aspirin (ASA) 81 mg DAILY ORAL 08/25/19 09:00 09/24/19 08:59 08/25/19 09:09 Carbidopa/Levodopa (Sinemet 10/100) 1 tab THREE TIMES A DAY ORAL 08/25/19 09:00 09/24/19 08:59 08/25/19 09:09 Dextrose (Dextrose 50%) 25 ml Q30M PRN IV Hypoglycemia 08/24/19 19:15 09/23/19 19:14 Dextrose (Dextrose 50%) 50 ml Q30M PRN IV Hypoglycemia 08/24/19 19:15 09/23/19 19:14 Heparin Sodium/ Dextrose 500 ml @ 15.676 mls/ hr ADJUST PER PROTOCOL IV 08/24/19 22:00 09/23/19 21:59 08/24/19 22:04 Insulin Aspart (NovoLOG) BEFORE MEALS AND HS SUBQ 08/24/19 21:00 09/23/19 20:59 08/24/19 21:12 Metoprolol Tartrate (Lopressor) 25 mg EVERY 12 HOURS ORAL 08/24/19 21:00 09/23/19 20:59 Piperacillin Sod/ Tazobactam Sod 3.375 gm/Dextrose 110 ml @ 27.5 mls/hr Q12HR@0600,1800 IVPB 08/25/19 18:00 09/01/19 17:59 Vancomycin HCl (Vanco rx to dose) 1 ea DAILY PRN MISC Per rx protocol 08/25/19 07:30 09/24/19 07:29 Assessment/Plan Problem List: (1) Decubitus skin ulcer ICD Codes: L89.90 - Pressure ulcer of unspecified site, unspecified stage SNOMED: [id number] (2) Sepsis Assessment & Plan: Leukocytosis, abnormal labs, tachycardic, per report fevers UA identified urosepsis bacteremic On antibiotics as per infectious disease Trend labs Okay for diet A.m. labs Wounds unlikely etiology of sepsis as they are chronic and do not look actively infected We will follow with recommendations thank you for let me participate in patient' s care Darrius Miller Aug 25, 2019 15:40
[2019-08-25 16:00] VITALS: BP 132/59
[2019-08-25] MEDS: Piperacillin/Tazobactam 3.375 GM in D5W 110 ML IVPB SCH (18:59)
--- NOTE | 2019-08-25 19:19 | NUR ---
HAND-OFF: Report given to Marlen Salcedo RN. Pt. remain stable. Pt. cont. on Heparin drip 16u/kg/hr. No s/sx of bleeding.
--- NOTE | 2019-08-25 19:30 | NUR ---
NURSE NOTES: Received report from ISHAAN Bull. Pt is resting on the bed and no sign of acute distress noted. On tele monitor with SR with HR: 78's. On RA and SAO2 97% noted. On NPO. IV site intact and no sign of infiltration noted. On running with heparin drip 16U/kg/hr and no sign of bleeding noted. Dressing is clean and dry on Both foot area. Pt has Buckner cath and patent and drainage well. Placed fall precaution. Will continue to care plan.
[2019-08-25 20:00] VITALS: BP 121/48
--- NOTE | 2019-08-25 21:00 | NUR ---
NURSE NOTES: Pt is sleeping on the bed and no sign of acute cardio/respiratory distress noted. Noted redness on sacral area. Picture taken. Applied dressing with OptiForm as protocol and applied skin barrier cream for protection. Changed position. Informed charge nurse. Will continue to monitor any change of condition.
[2019-08-25] MEDS: Heparin 25,000u/D5W 500ml 500 ML IV SCH (22:48)
[2019-08-26] VITALS: BP 130/65
[2019-08-26 04:00] VITALS: BP 132/60
--- NOTE | 2019-08-26 05:28 | NUR ---
NURSE NOTES: Noted PTT result with 46. Verify with pharmacist iwona and dose snell to 20U/kg/hr. No sign of acute bleeding noted. Pt is resting on the bed and awake and confused agitated. Pt trying to take off mariela gown. Remind Pt do not take off her gown but she didn't understand. Will continue to monitor any change of condition.
[2019-08-26] MEDS ORDERED: Heparin 5000 units/ml inj IV SCH (05:30)
[2019-08-26] MEDS ORDERED: Heparin 25,000u/D5W 500ml 500 ML IV SCH ×2 (05:30→13:30)
[2019-08-26] MEDS: Piperacillin/Tazobactam 3.375 GM in D5W 110 ML IVPB SCH (05:30)
[2019-08-26] MEDS: NovoLOG Insulin Flexpen SUBQ SCH ×4 (06:30→21:18)
--- NOTE | 2019-08-26 07:26 | NUR ---
HAND-OFF: Report given to ISHAAN Ordonez. Pt is sleeping on the bed and no sign of acute distress noted.
--- NOTE | 2019-08-26 07:46 | General Progress Note ---
Assessment/Plan Status: stable Assessment/Plan: 84-year-old lady from [facility] with history of hypertension, uncontrolled diabetes, and Parkinson disease, who was brought to the emergency room by family member for altered mental status and weakness. Found to have severe sepsis due to UTI, OWEN vs OWEN on CKD and NSTEMI. Heart failure. BNP of more than 24,000. Echocardiogram Nl EF. ?HFpEF Plan: - PCU level of care - cardiology consult - heparin gtt per acs protocol, will DC per cards, no chest pain, stable troponin. Continue ASA, beta lisbeth (Lopressor 25), hold off on statin due to rhabdomyolysis - trend tn/ekg - TTE, normal EF, no vegetations, in view of strep bacteremia in / bottles, may need a ERIBERTO to r/o endocarditis - hold IVF at this time - s/p lasix 20 IV x on admit - ID consult - c/w empiric vanco/zosyn - follow urine and blood cx's. 11/08 strep bacteremia with wbc 25k - c/w PD regimen - insulin sliding scale ac/hs - NPO pending swallow evaluation (cough w/ water on admit) - supportive care - delirium precautions -d/w ID Time of this note may not reflect the time of the clinical encounter. Subjective Date patient seen: Aug 26, 2019 ROS Limited/Unobtainable: Yes Allergies: Coded Allergies: No Known Allergies (Unverified , 10/23/13) Subjective following up for severe sepsis, bacteremia, UTI, OWEN, NSTEMI. poor historian. Denies any chest pain or sob, alert and awake, follow simple commands. tele reviewed. SR , LBBB Objective Last 24 Hour Vital Signs Date Time Temp Pulse Resp B/P (MAP) Pulse Ox O2 Delivery O2 Flow Rate FiO2 08/26/19 04:00 81 08/26/19 04:00 Room Air 08/26/19 04:00 97.7 77 19 132/60 (84) 99 08/26/19 00:00 Room Air 08/26/19 00:00 77 08/26/19 00:00 97.7 79 19 130/65 (86) 97 08/25/19 21:02 79 137/58 08/25/19 20:00 72 08/25/19 20:00 Room Air 08/25/19 20:00 98.0 78 19 121/48 (72) 97 08/25/19 16:00 Room Air 08/25/19 16:00 98.8 78 19 132/59 (83) 100 08/25/19 15:26 76 08/25/19 12:00 Room Air 08/25/19 12:00 97.7 85 20 119/53 (75) 98 08/25/19 11:47 81 08/25/19 09:00 82 107/47 08/25/19 08:00 Room Air 08/25/19 08:00 98.6 82 19 107/47 (67) 100 Intake and Output 08/25/19 08/26/19 19:00 07:00 Intake Total 203.788 ml 317.879 ml Output Total 200 ml 500 ml Balance 3.788 ml -182.121 ml Intake IV Total 203.788 ml 317.879 ml Output Urine Total 200 ml 500 ml # Bowel Movements 1 3 Laboratory Tests 08/26/19 03:45: Activated Partial Thromboplast Time 46H, Random Vancomycin Level 13.2 Height (Feet): 5 Height (Inches): 3.00 Weight (Pounds): 113 Objective General Appearance: WD/WN, no apparent distress, awake, confused HEENT: normocephalic, atraumatic, PERRL, EOMI, supple, no JVD Neck: non-tender, normal alignment, supple Respiratory/Chest: chest wall non-tender, lungs clear, normal breath sounds, no respiratory distress, no accessory muscle use Cardiovascular/Chest: normal peripheral pulses, normal rate, regular rhythm, no gallop/murmur, no JVD Abdomen: non tender, soft, no organomegaly Extremities: no edema, no cyanosis Neurologic: disoriented Chago Lyons M.D. Aug 26, 2019 07:46
--- NOTE | 2019-08-26 08:00 | NUR ---
NURSE NOTES: received pt in the bed, awake, confused, vital signs stable, no co pain, no SOB, skin warm and dry to touch, dressing dry and intact, pt on Heparin drip 20u/kg, next PTT at 1140, Buckner catheter with yellow urine, pt NPO, for swallow eval, bed in low position, call light within reach.
[2019-08-26 08:05] VITALS: BP 120/67
[2019-08-26] MEDS: Aspirin Baby 81mg ORAL SCH (09:34)
[2019-08-26] MEDS: Levodopa/Carbidopa 10/100 tab ORAL SCH ×3 (09:34→17:39)
[2019-08-26 09:39] LABS: HEMATOCRIT 24.6 % (37.0-47.0); HEMOGLOBIN 8.3 G/DL (12.0-16.0); MEAN CORPUSCULAR VOLUME 84 FL (80-99); PLATELET COUNT 266 K/UL (150-450); RED BLOOD COUNT 2.92 M/UL (4.20-5.40); RED CELL DISTRIBUTION WIDTH 12.3 % (11.6-14.8)
[2019-08-26] MEDS ORDERED: Vancomycin 1.25gm/NS Premix q24h IVPB SCH (10:00)
--- NOTE | 2019-08-26 10:27 | NUR ---
ST NOTES: REFERRED FOR A SWALLOWING EVALUATION BY DR. HANEY, SEE FULL REPORT. DYSPHAGIA RISK FACTORS FOR THIS 84 Y.O. [place]-SPEAKING ([facility]) FEMALE: ACUTE ISSUES: SEPSIS, AMS TOXIC-MET ENCEPHALOPATHY CONFUSED (BASELINE WAS OX2 CT HEAD IS NEGATIVE, ATYPICAL MEASLES SYNDROME, CXR Lung vascular congestion, NSTEMI, OWEN, CHRONIC CHF, ASTHENIA (GEN WEAKNESS), UTI H/O GI AND CARDIAC D/O, PD (NOT ON MEDS FOR THIS, DEMENTIA, CVA/TIA, MENINGITIS, DM, HTN. RELEVANT MEDS: ON CARBIDOPA / LEVODOPA (SINEMET ONE TAB 3 X PER DAY) PER NO POLST NOR ADVANCED DIRECTIVE REGARDING TUBE FEEDINGS. PER HER FAMILY (SISTER WHO ONLY SPEAKS [place]), THE PATIENT HAS NOT HAD A RECENT PNA AND WAS SLOWLY EATING REGULAR TEXTURE FOOD AND THIN LIQUIDS W/O OVERT PROBLEMS. HER SISTER DOES NOT WANT HER TO HAVE NONORAL FEEDINGS AT THIS TIME EVEN THOUGH SHE WAS TOLD THAT SHE HAS A DYSPHAGIA AND RISK FOR SILENT ASPIRATION AND VERY SLOW, INADEQUATE INTAKE. THE PATIENT IS ALERT BUT SEEMS TIRED. SHE IS DYSPHONIC AND SPEAKS WITH A SOFT VOICE REDUCED IN LOUDNESS AND BARELY AUDIBLE IN A QUIET SETTING. SHE WAS ABLE TO EXPRESS SOME BASIC NEEDS IN [place] BUT DOES NOT USUALLY INITIATE COMMUNICATION. ON ROOM AIR AND TENDS TO LET HER HEAD GO BACK. ONE FINGER HAS A TREMOR. INITIAL IMPRESSIONS: S/S OF AT LEAST A MILD-MODERATE ORAL PREP AND OROPHARYNGEAL DYSPHAGIA WITH INCREASED ORAL PREP AND OROPHARYNGEAL TRANSIT TIMES. GIVEN THIN LIQUIDS IN ER, PATIENT APPARENTLY ASPIRATED SO WILL HOLD ON THIS PO TRIAL FOR NOW. GIVEN NECTAR THICK LIQUIDS, TSP, THE PATIENT HAD 2-4 SECONDS INCREASE IN OP TRANSIT TIMES AND SWALLOWED WITH MILDLY WEAK HYOLARYNGEAL EXCURSION, AND SWALLOWED AGAIN AFTER A FEW SECONDS AT TIMES. COUGHED AFTER THE SECOND PO TRIAL. GIVEN HONEY THICK LIQUID TSP ONLY, SLOWER INTAKE 4 SEC UNTIL SHE SWALLOWED WITH FAIR HYOLARYNGEAL EXCURSION, NO ORAL RESIDUE NOR OVERT ASPIRATION GIVEN TSP PUREED, NO OVERT ASPIRATION BUT TOOK 6-8 SEC TO SWALLOW WITH MILDLY REDUCED HYOLARYNGEAL EXCURSION,MIN ORAL RESIDUE (MID TONGUE CLEARED WITH 2ND SWALLOW CUED), NO OVERT ASPIRATION HAS SILENT ASPIRATION (DUE TO PD, CVA, AND DEMENTIA HX) AND SLOW/POOR INTAKE RISKS RECOMMENDATIONS COMPLETE MOD BARIUM SWALLOW STUDY TO R/O SILENT ASP, FURTHER ASSESS SWALLOW, ATTEMPT TRIAL TX SINCE FAMILY WANTS PO FOR QUALITY OF LIFE, CONSIDER INITIATION OF LIQUIFIED PUREED LIKE HONEY THICK LIQUID DIET TSP ONLY WITH ONE TO ONE FEEDING AND ASP/REFLUX PRECAUTIONS CRUSHED MEDS AND MAKE HONEY THICK LIQUID (TSP ONLY) DIET TYPE AND HIGH HUNTER SUP PER RD EDUCATED/TRAINED STAFF IN POSTED PRECAUTIONS SKILLED DYSPHAGIA MANAGEMENT AND TX AND COG-COM EVAL/TX
[2019-08-26 10:38] LABS: ALANINE AMINOTRANSFERASE 17 U/L (12-78); ALBUMIN/GLOBULIN RATIO 0.5 (1.0-2.7); ALKALINE PHOSPHATASE 188 U/L (46-116); ANION GAP 16 mmol/L (5-15); ASPARTATE AMINO TRANSFERASE 75 U/L (15-37); BILIRUBIN,TOTAL 0.4 MG/DL (0.2-1.0); BLOOD UREA NITROGEN 44 mg/dL (7-18); CALCIUM 7.9 MG/DL (8.5-10.1); CARBON DIOXIDE 20 MMOL/L (21-32); CHLORIDE 108 MMOL/L (98-107); CREATININE 1.6 MG/DL (0.55-1.30); POTASSIUM 3.4 MMOL/L (3.5-5.1); SODIUM 144 MMOL/L (136-145)
[2019-08-26 12:00] VITALS: BP 126/83
--- NOTE | 2019-08-26 15:19 | NUR ---
LOBBY CONCIERGEMEDICAL RECORDS RECEPTIONIST 84 YO FEMALE FROM HOME TO ER CC UNABLE TO SWALLOW,WEAKNESS SI: ALTERED MENTAL STATUS T. 97.3 HR 60 RR 12 B/P 92/35 WBC 19.5 BUN 28 CR 1.7 AST 43 TCK 1382 TROP 0.601 BNP 87033 UA+ PROTEIN,GLU,BLOOD,LEUKOCYTE ESTERASE,RBC,WBC,BACTERIA HEAD CT= NEGATIVE CXR= MILD VASCULAR CONGESTION IS: IV BOLUS NS X 3 LITERS ADMITTED TO STEP DOWN STEP DOWN STATUS DCP
--- NOTE | 2019-08-26 15:40 | Cardiac Electrophysiology PN ---
Assessment/Plan Assessment/Plan 1. Elevated troponin, could be due to renal failure. BUN is 28 and creatinine 1.7. All troponins are between 0.5 and 0.7. Has no CP and underlying left bundle -branch block. Echo Nl EF and no vegetations. DC heparin drip. On aspirin and beta-lisbeth, and hold off on the statin in view of rhabdomyolysis. 2. Hypertension. On Lopressor 25 mg b.i.d. 3. Renal failure. Creatinine of 1.7. 4. Uncontrolled diabetes. 5. Heart failure. BNP of more than 24,000. Echocardiogram Nl EF. Could be HFpEF 6. Urinary tract infection, on IV antibiotic. 7. 4/4 Strep Bacteremia with WBC 25K. R/O endocarditis. May need ERIBERTO DW Dr. Mcfadden Subjective Subjective Remained in SR with LBBB. On heparin drip. Objective Last 24 Hour Vital Signs Date Time Temp Pulse Resp B/P (MAP) Pulse Ox O2 Delivery O2 Flow Rate FiO2 08/26/19 12:00 74 08/26/19 12:00 Room Air 08/26/19 12:00 97.7 77 18 126/83 (97) 98 08/26/19 09:34 83 120/67 08/26/19 08:05 97.7 83 18 120/67 (84) 97 08/26/19 08:00 Room Air 08/26/19 08:00 79 08/26/19 04:00 81 08/26/19 04:00 Room Air 08/26/19 04:00 97.7 77 19 132/60 (84) 99 08/26/19 00:00 Room Air 08/26/19 00:00 77 08/26/19 00:00 97.7 79 19 130/65 (86) 97 08/25/19 21:02 79 137/58 08/25/19 20:00 72 08/25/19 20:00 Room Air 08/25/19 20:00 98.0 78 19 121/48 (72) 97 08/25/19 16:00 Room Air 08/25/19 16:00 98.8 78 19 132/59 (83) 100 Intake and Output 08/25/19 08/26/19 19:00 07:00 Intake Total 203.788 ml 317.879 ml Output Total 200 ml 500 ml Balance 3.788 ml -182.121 ml Intake IV Total 203.788 ml 317.879 ml Output Urine Total 200 ml 500 ml # Bowel Movements 1 3 Laboratory Tests Test 08/26/19 03:45 08/26/19 09:15 08/26/19 12:30 Activated Partial Thromboplast Time 46 SEC (23-33) H 96 SEC (23-33) H Random Vancomycin Level 13.2 ug/mL White Blood Count 19.0 K/UL (4.8-10.8) H Red Blood Count 2.92 M/UL (4.20-5.40) L Hemoglobin 8.3 G/DL (12.0-16.0) L Hematocrit 24.6 % (37.0-47.0) L Mean Corpuscular Volume 84 FL (80-99) Mean Corpuscular Hemoglobin 28.4 PG (27.0-31.0) Mean Corpuscular Hemoglobin Concent 33.6 G/DL (32.0-36.0) Red Cell Distribution Width 12.3 % (11.6-14.8) Platelet Count 266 K/UL (150-450) Mean Platelet Volume 7.0 FL (6.5-10.1) Neutrophils (%) (Auto) % (45.0-75.0) Lymphocytes (%) (Auto) % (20.0-45.0) Monocytes (%) (Auto) % (1.0-10.0) Eosinophils (%) (Auto) % (0.0-3.0) Basophils (%) (Auto) % (0.0-2.0) Differential Total Cells Counted 100 Neutrophils % (Manual) 95 % (45-75) H Lymphocytes % (Manual) 2 % (20-45) L Monocytes % (Manual) 3 % (1-10) Eosinophils % (Manual) 0 % (0-3) Basophils % (Manual) 0 % (0-2) Band Neutrophils 0 % (0-8) Platelet Estimate Adequate Platelet Morphology Normal Hypochromasia 1+ Sodium Level 144 MMOL/L (136-145) Potassium Level 3.4 MMOL/L (3.5-5.1) L Chloride Level 108 MMOL/L (98-107) H Carbon Dioxide Level 20 MMOL/L (21-32) L Anion Gap 16 mmol/L (5-15) H Blood Urea Nitrogen 44 mg/dL (7-18) H Creatinine 1.6 MG/DL (0.55-1.30) H Estimat Glomerular Filtration Rate mL/min (>60) Glucose Level 233 MG/DL (74-106) H Calcium Level 7.9 MG/DL (8.5-10.1) L Total Bilirubin 0.4 MG/DL (0.2-1.0) Aspartate Amino Transf (AST/SGOT) 75 U/L (15-37) H Alanine Aminotransferase (ALT/SGPT) 17 U/L (12-78) Alkaline Phosphatase 188 U/L (46-116) H Troponin I 0.540 ng/mL (0.000-0.056) Total Protein 6.2 G/DL (6.4-8.2) L Albumin 2.0 G/DL (3.4-5.0) L Globulin 4.2 g/dL Albumin/Globulin Ratio 0.5 (1.0-2.7) L Microbiology Date/Time Source Procedure Growth Status 08/24/19 13:35 Blood Blood Culture - Preliminary Streptococcus Species Resulted 08/24/19 13:25 Blood Blood Culture - Preliminary Streptococcus Species Resulted 08/24/19 14:25 Urine,Clean Catch Urine Culture - Final Escherichia Coli - Esbl Complete Objective HEAD AND NECK: No JVD or carotid bruits. LUNGS: Clear. CARDIOVASCULAR: Regular S1 and S2 with no gallop or murmur. ABDOMEN: Soft. EXTREMITIES: No pitting edema. Luis Purdy MD Aug 26, 2019 15:40
[2019-08-26 16:00] VITALS: BP 95/47
[2019-08-26] MEDS ORDERED: Tubing IV Secondary IV ONE (16:01)
--- NOTE | 2019-08-26 16:13 | NUR ---
NURSE NOTES: vital signs stable, ESBL urine, DR. FISCHER aware, bed bath given, stop Heparin drip as ordered, swallow eval done, continue monitoring.
--- NOTE | 2019-08-26 16:40 | Infectious Diseases Prog Note ---
Assessment/Plan Assessment/Plan ASSESSMENT AND PLAN: 1. streptococcus bacteremia, ? endocarditis, esbl e.coli uti, sirs, leukocytosis - meropenem and vancomycin - day # 3 antibiotics - d/w cardiology - ERIBERTO planned - f/u blood cultures, monitor labs 2. Acute kidney injury with elevated creatinine. 3. History of diabetes. 4. weakness 5. Blood pressure treatment per primary care team and diabetes treatment per primary care team and consultants. 6. Parkinson's. 7. Dementia. 8. The patient does have also elevated troponin. Cardiology follow-up. 9. MAR was noted. 10. Case was discussed with RN. 11. No known allergies. 12. Social history is negative. 13. Family history is noncontributory. 14. Continue treatment per primary consultants. 15. Orders were noted and entered. Subjective Constitutional: Reports: fatigue; Denies: fever HEENT: Denies: congestion Respiratory: Denies: shortness of breath Gastrointestinal/Abdominal: Denies: nausea, vomiting, diarrhea Genitourinary: Reports: other - + arnold Neurologic: Denies: headache Psychiatric: Denies: depression Skin: Denies: rash Hematologic: Denies: bleeding Musculoskeletal: Denies: pain Allergies: Coded Allergies: No Known Allergies (Unverified , 10/23/13) Objective Vital Signs Last 24 Hour Vital Signs Date Time Temp Pulse Resp B/P (MAP) Pulse Ox O2 Delivery O2 Flow Rate FiO2 08/26/19 16:00 97.9 76 18 95/47 (63) 98 08/26/19 16:00 Room Air 08/26/19 12:00 74 08/26/19 12:00 Room Air 08/26/19 12:00 97.7 77 18 126/83 (97) 98 08/26/19 09:34 83 120/67 08/26/19 08:05 97.7 83 18 120/67 (84) 97 08/26/19 08:00 Room Air 08/26/19 08:00 79 08/26/19 04:00 81 08/26/19 04:00 Room Air 08/26/19 04:00 97.7 77 19 132/60 (84) 99 08/26/19 00:00 Room Air 08/26/19 00:00 77 08/26/19 00:00 97.7 79 19 130/65 (86) 97 08/25/19 21:02 79 137/58 08/25/19 20:00 72 08/25/19 20:00 Room Air 08/25/19 20:00 98.0 78 19 121/48 (72) 97 Height (Feet): 5 Height (Inches): 3.00 Weight (Pounds): 108 General Appearance: no acute distress HEENT: normocephalic, atraumatic, anicteric, mucous membranes moist Respiratory/Chest: lungs clear, normal breath sounds, no respiratory distress Cardiovascular: normal rate, regular rhythm, no gallop/murmur, no JVD Abdomen: normal bowel sounds, soft, non tender, no organomegaly Genitourinary: other Extremities: no cyanosis Skin: no rash Neurologic/Psychiatric: system consultant II-XII grossly normal, alert, oriented x 3, responsive Lymphatic: no neck adenopathy Musculoskeletal: no effusion Objective Chest x-ray - FINDINGS: Lungs: Mild vascular congestion. Pleural space: Unremarkable. No pneumothorax. Heart: Borderline cardiomegaly, potentially exaggerated by portable technique. Mediastinum: Calcified aorta. Bones/joints: Osteopenia. Degenerative changes. IMPRESSION: Mild vascular congestion Microbiology Date/Time Source Procedure Growth Status 08/24/19 13:35 Blood Blood Culture - Preliminary Streptococcus Species Resulted 08/24/19 13:25 Blood Blood Culture - Preliminary Streptococcus Species Resulted 08/24/19 14:25 Urine,Clean Catch Urine Culture - Final Escherichia Coli - Esbl Complete Laboratory Tests Test 08/26/19 03:45 08/26/19 09:15 08/26/19 12:30 Activated Partial Thromboplast Time 46 SEC (23-33) H 96 SEC (23-33) H Random Vancomycin Level 13.2 ug/mL White Blood Count 19.0 K/UL (4.8-10.8) H Red Blood Count 2.92 M/UL (4.20-5.40) L Hemoglobin 8.3 G/DL (12.0-16.0) L Hematocrit 24.6 % (37.0-47.0) L Mean Corpuscular Volume 84 FL (80-99) Mean Corpuscular Hemoglobin 28.4 PG (27.0-31.0) Mean Corpuscular Hemoglobin Concent 33.6 G/DL (32.0-36.0) Red Cell Distribution Width 12.3 % (11.6-14.8) Platelet Count 266 K/UL (150-450) Mean Platelet Volume 7.0 FL (6.5-10.1) Neutrophils (%) (Auto) % (45.0-75.0) Lymphocytes (%) (Auto) % (20.0-45.0) Monocytes (%) (Auto) % (1.0-10.0) Eosinophils (%) (Auto) % (0.0-3.0) Basophils (%) (Auto) % (0.0-2.0) Differential Total Cells Counted 100 Neutrophils % (Manual) 95 % (45-75) H Lymphocytes % (Manual) 2 % (20-45) L Monocytes % (Manual) 3 % (1-10) Eosinophils % (Manual) 0 % (0-3) Basophils % (Manual) 0 % (0-2) Band Neutrophils 0 % (0-8) Platelet Estimate Adequate Platelet Morphology Normal Hypochromasia 1+ Sodium Level 144 MMOL/L (136-145) Potassium Level 3.4 MMOL/L (3.5-5.1) L Chloride Level 108 MMOL/L (98-107) H Carbon Dioxide Level 20 MMOL/L (21-32) L Anion Gap 16 mmol/L (5-15) H Blood Urea Nitrogen 44 mg/dL (7-18) H Creatinine 1.6 MG/DL (0.55-1.30) H Estimat Glomerular Filtration Rate mL/min (>60) Glucose Level 233 MG/DL (74-106) H Calcium Level 7.9 MG/DL (8.5-10.1) L Total Bilirubin 0.4 MG/DL (0.2-1.0) Aspartate Amino Transf (AST/SGOT) 75 U/L (15-37) H Alanine Aminotransferase (ALT/SGPT) 17 U/L (12-78) Alkaline Phosphatase 188 U/L (46-116) H Troponin I 0.540 ng/mL (0.000-0.056) Total Protein 6.2 G/DL (6.4-8.2) L Albumin 2.0 G/DL (3.4-5.0) L Globulin 4.2 g/dL Albumin/Globulin Ratio 0.5 (1.0-2.7) L Current Medications Medications (Trade) Dose Ordered Sig/Krystin Route PRN Reason Start Time Stop Time Status Last Admin Dose Admin Acetaminophen (Tylenol) 650 mg Q4H PRN ORAL Mild Pain/Temp > 100.5 08/25/19 12:45 09/24/19 12:44 Aspirin (ASA) 81 mg DAILY ORAL 08/25/19 09:00 09/24/19 08:59 08/26/19 09:34 Carbidopa/Levodopa (Sinemet 10/100) 1 tab THREE TIMES A DAY ORAL 08/25/19 09:00 09/24/19 08:59 08/26/19 13:03 Dextrose (Dextrose 50%) 25 ml Q30M PRN IV Hypoglycemia 08/24/19 19:15 09/23/19 19:14 Dextrose (Dextrose 50%) 50 ml Q30M PRN IV Hypoglycemia 08/24/19 19:15 09/23/19 19:14 Insulin Aspart (NovoLOG) BEFORE MEALS AND HS SUBQ 08/24/19 21:00 09/23/19 20:59 08/26/19 12:59 Meropenem 500 mg/ Sodium Chloride 55 ml @ 110 mls/hr Q12HR@0400,1600 IVPB 08/26/19 16:00 08/31/19 15:59 Metoprolol Tartrate (Lopressor) 25 mg EVERY 12 HOURS ORAL 08/24/19 21:00 09/23/19 20:59 08/26/19 09:34 Vancomycin HCl (Vanco rx to dose) 1 ea DAILY PRN MISC Per rx protocol 08/25/19 07:30 09/24/19 07:29 Gerardo Toledo MD Aug 26, 2019 16:40
[2019-08-26] MEDS: Meropenem 500mg/NS 55ml IVPB SCH ×2 (17:00)
--- NOTE | 2019-08-26 17:50 | NUR ---
NURSE NOTES:WOUND CARE NOTES:Pt presented on admission with multiple pressure injuries. DTPI Sacrum (L)10cm x (W)9cm with small slit at sacrococcygeal area(L)0.5cm- small amt sanguineous exudate noted.Base of wound is maroon and indurated. Two Unstageable pressure injuries in close proximity noted to L hip. Base of each wound is necrotic and soft with marginal erythema.(L)2cm x (W)3.7cm NO erythema or odor noted. Historical Scar noted at L hip in close proximity to wound. L heel boggy with non-blanching erythema.(L)4cm x (W)4.5cm R heel boggy with non-blanching erythema.(L)5cm x (W)6cm. Pt noted to have several small black droppings in bed. Upon further inspection. Single small brownish bug observed crawling in bed. At posterior aspect of neck pt noted to have macular red rash.Red rash also noted to L axilla .Complete bed Bath provided.And all bed linen removed and mattress sanitized. EVS was notified by Primary nurse. Tx.plan:Apply Moisture Barrier Paste to Sacrum. Cover with Optifoam drsg. Change every 3 days and prn. Cleanse L hip with Saline. Apply Therahoney. Apply Cavilon Skin Barrier periwound.Cover with Optifoam drsg. Change every 3 days and prn. Apply Cavilon Skin Barrier to both heels. Cover each heel with Optifoam drsg. Change every 7 days and prn. APM/YURIY mattress overlay. Reposition at least every 2hours or as tolerated. Off-load heels with pillow.
[2019-08-26] MEDS ORDERED: Piperacillin/Tazobactam 3.375 GM in NS 110 ML IVPB SCH (18:00)
--- NOTE | 2019-08-26 19:11 | NUR ---
HAND-OFF: Report given to YISEL QUIROS,no distress at this time.
--- NOTE | 2019-08-26 19:20 | NUR ---
NURSE NOTES: Report received from Mery Devine RN. Observed pt lying in the bed, A/O x1, no signs of pain noted, SR on regulatory analyst. On room air with no sob. F/C intact and draining yellow urine. IV on L AC 20G, intact, R AC 20G, TKO, covered with Kerlix. Bed in the lowest position. Side rails up x3. Will continue to monitor.
[2019-08-26 20:00] VITALS: BP 144/56
[2019-08-27] VITALS: BP 142/58
--- NOTE | 2019-08-27 01:29 | NUR ---
NURSE NOTES: Pt sleeping in the bed, calm and comfortable. SR on monitor worker. No acute distress noted at this time. Bed bath given. Reposition done q 2hrs. IV sites intact, asymptomatic. Will continue to monitor.
[2019-08-27] MEDS: Meropenem 500mg/NS 55ml IVPB SCH ×4 (03:02→18:10)
[2019-08-27 04:00] VITALS: BP 143/59
[2019-08-27 05:32] LABS: HEMATOCRIT 23.2 % (37.0-47.0); HEMOGLOBIN 7.7 G/DL (12.0-16.0); MEAN CORPUSCULAR VOLUME 85 FL (80-99); PLATELET COUNT 202 K/UL (150-450); RED BLOOD COUNT 2.74 M/UL (4.20-5.40); RED CELL DISTRIBUTION WIDTH 12.4 % (11.6-14.8); WHITE BLOOD COUNT 14.9 K/UL (4.8-10.8)
[2019-08-27 06:18] LABS: ALANINE AMINOTRANSFERASE 15 U/L (12-78); ALBUMIN 1.9 G/DL (3.4-5.0); ALBUMIN/GLOBULIN RATIO 0.4 (1.0-2.7); ALKALINE PHOSPHATASE 168 U/L (46-116); ANION GAP 15 mmol/L (5-15); ASPARTATE AMINO TRANSFERASE 51 U/L (15-37); BILIRUBIN,TOTAL 0.4 MG/DL (0.2-1.0); BLOOD UREA NITROGEN 35 mg/dL (7-18); CARBON DIOXIDE 20 MMOL/L (21-32); CHLORIDE 110 MMOL/L (98-107); CREATINE KINASE 366 U/L (26-308); CREATININE 1.3 MG/DL (0.55-1.30); SODIUM 144 MMOL/L (136-145)
[2019-08-27] MEDS: NovoLOG Insulin Flexpen SUBQ SCH ×4 (06:31→20:46)
[2019-08-27] MEDS ORDERED: Sodium Chloride for KCL Premix x 2hrs IV SCH (07:00)
--- NOTE | 2019-08-27 07:03 | NUR ---
HAND-OFF: Report given to ISHAAN Bull. No distress noted at this time.
--- NOTE | 2019-08-27 07:10 | NUR ---
NURSE NOTES: Received bedside report from Sang RN. Pt. in bed, sleeping but arousable. No sign of distress. No grimacing noted. IV at left and right AC #20g. in placed SL. Bed in low position, locked. Call light within reach. Will cont. to monitor.
[2019-08-27 08:00] VITALS: BP 151/62
--- NOTE | 2019-08-27 08:15 | NUR ---
NURSE NOTES: Called and left message to Dr. Prudy regarding SB 34 episode x1 . Awaiting for response. Pt. remain stable.
[2019-08-27] MEDS: Levodopa/Carbidopa 10/100 tab ORAL SCH ×3 (08:58→18:18)
[2019-08-27] MEDS: Aspirin Baby 81mg ORAL SCH (08:59)
--- NOTE | 2019-08-27 09:36 | General Progress Note ---
Assessment/Plan Problem List: (1) Severe sepsis ICD Codes: A41.9 - Sepsis, unspecified organism; R65.20 - Severe sepsis without septic shock SNOMED: 52379307 (2) Diabetes mellitus with hyperglycemia ICD Codes: E11.65 - Type 2 diabetes mellitus with hyperglycemia SNOMED: 24034213, 24499655 (3) OWEN (acute kidney injury) ICD Codes: N17.9 - Acute kidney failure, unspecified SNOMED: 8827967, 99505351 (4) NSTEMI (non-ST elevated myocardial infarction) ICD Codes: I21.4 - Non-ST elevation (NSTEMI) myocardial infarction SNOMED: 59292074, 536043519 (5) UTI (lower urinary tract infection) (6) OWEN (acute kidney injury) ICD Codes: N17.9 - Acute kidney failure, unspecified SNOMED: 8175989, 63053481 (7) Suspected acute on chronic CHF (8) Toxic metabolic encephalopathy ICD Codes: G92 - Toxic encephalopathy SNOMED: 601515183 (9) Decubitus skin ulcer ICD Codes: L89.90 - Pressure ulcer of unspecified site, unspecified stage SNOMED: 937061016 (10) ATN (acute tubular necrosis) ICD Codes: N17.0 - Acute kidney failure with tubular necrosis SNOMED: 14279281 (11) Parkinson disease ICD Codes: G20 - Parkinson disease SNOMED: 60757959 Status: stable Assessment/Plan: 84-year-old lady from [facility] with history of hypertension, uncontrolled diabetes, and Parkinson disease, who was brought to the emergency room by family member for altered mental status and weakness. Found to have severe sepsis due to UTI, OWEN vs OWEN on CKD and NSTEMI. Heart failure. BNP of more than 24,000. Echocardiogram Nl EF. ?HFpEF Plan: - PCU level of care - cardiology consult - heparin gtt per acs protocol, will DC per cards, no chest pain, stable troponin. Continue ASA, beta lisbeth (Lopressor 25), hold off on statin due to rhabdomyolysis. Decrease Lopressor to 12.5 mg bid due to low heart rate - trend tn/ekg - TTE, normal EF, no vegetations, in view of strep bacteremia in 4/4 bottles, may need a ERIBERTO to r/o endocarditis - hold IVF at this time - s/p lasix 20 IV x on admit - ID consult - c/w empiric vanco/zosyn - follow urine and blood cx's. / strep bacteremia with wbc 25k--> now 14 - c/w PD regimen - insulin sliding scale ac/hs, A1c 9 - NPO pending swallow evaluation (cough w/ water on admit) - supportive care - delirium precautions -d/w ID Time of this note may not reflect the time of the clinical encounter. Subjective Date patient seen: Aug 27, 2019 ROS Limited/Unobtainable: Yes Allergies: Coded Allergies: No Known Allergies (Unverified , 10/23/13) Subjective poor historian. following up for severe sepsis, bacteremia, UTI, OWEN, NSTEMI. Denies any chest pain or sob, alert and awake, follow simple commands. tele reviewed. SR at 30's , LBBB Objective Last 24 Hour Vital Signs Date Time Temp Pulse Resp B/P (MAP) Pulse Ox O2 Delivery O2 Flow Rate FiO2 08/27/19 09:03 58 151/62 08/27/19 08:00 97.2 58 17 151/62 (91) 100 08/27/19 04:00 Room Air 08/27/19 04:00 76 08/27/19 04:00 98.1 75 20 143/59 (87) 98 08/27/19 00:00 Room Air 08/27/19 00:00 97.9 80 20 142/58 (86) 99 08/27/19 00:00 69 08/26/19 21:17 80 144/56 08/26/19 20:00 80 08/26/19 20:00 Room Air 08/26/19 20:00 97.7 80 18 144/56 (85) 97 08/26/19 16:00 97.9 76 18 95/47 (63) 98 08/26/19 16:00 Room Air 08/26/19 16:00 74 08/26/19 12:00 74 08/26/19 12:00 Room Air 08/26/19 12:00 97.7 77 18 126/83 (97) 98 Intake and Output 08/26/19 08/27/19 19:00 07:00 Intake Total 155 ml Output Total 400 ml 400 ml Balance -400 ml -245 ml Intake Oral 100 ml IV Total 55 ml Output Urine Total 400 ml 400 ml # Bowel Movements 6 5 Laboratory Tests 08/26/19 12:30: Activated Partial Thromboplast Time 96H 08/27/19 03:25: White Blood Count 14.9H, Red Blood Count 2.74L, Hemoglobin 7.7L, Hematocrit 23.2L, Mean Corpuscular Volume 85, Mean Corpuscular Hemoglobin 28.0, Mean Corpuscular Hemoglobin Concent 33.0, Red Cell Distribution Width 12.4, Platelet Count 202, Mean Platelet Volume 7.3, Neutrophils (%) (Auto) , Lymphocytes (%) ( Auto) , Monocytes (%) (Auto) , Eosinophils (%) (Auto) , Basophils (%) (Auto) , Differential Total Cells Counted 100, Neutrophils % (Manual) 95H, Lymphocytes % (Manual) 3L, Monocytes % (Manual) 2, Eosinophils % (Manual) 0, Basophils % ( Manual) 0, Band Neutrophils 0, Platelet Estimate Adequate, Platelet Morphology Normal, Hypochromasia 1+, Sodium Level 144, Potassium Level 3.0L, Chloride Level 110H, Carbon Dioxide Level 20L, Anion Gap 15, Blood Urea Nitrogen 35H, Creatinine 1.3, Estimat Glomerular Filtration Rate , Glucose Level 231H, Hemoglobin A1c 9.1H, Calcium Level 8.0L, Total Bilirubin 0.4, Aspartate Amino Transf (AST/SGOT) 51H, Alanine Aminotransferase (ALT/SGPT) 15, Alkaline Phosphatase 168H, Total Creatine Kinase 366H, Total Protein 6.5, Albumin 1.9L, Globulin 4.6, Albumin/Globulin Ratio 0.4L, Random Vancomycin Level 19.0 Height (Feet): 5 Height (Inches): 3.00 Weight (Pounds): 108 Objective General Appearance: WD/WN, no apparent distress, awake, confused HEENT: normocephalic, atraumatic, PERRL, EOMI, supple, no JVD Neck: non-tender, normal alignment, supple Respiratory/Chest: chest wall non-tender, lungs clear, normal breath sounds, no respiratory distress, no accessory muscle use Cardiovascular/Chest: normal peripheral pulses, normal rate, regular rhythm, no gallop/murmur, no JVD Abdomen: non tender, soft, no organomegaly Extremities: no edema, no cyanosis Neurologic: disoriented Chago Lyons M.D. Aug 27, 2019 09:36
[2019-08-27] MEDS ORDERED: Vancomycin 1.25gm/NS Premix q24h IVPB SCH (10:00)
--- NOTE | 2019-08-27 10:30 | NUR ---
NURSE NOTES: Seen by Dr. Purdy with new order.
--- NOTE | 2019-08-27 10:56 | Cardiac Electrophysiology PN ---
Assessment/Plan Assessment/Plan 1. Elevated troponin, could be due to renal failure. BUN is 28 and creatinine 1.7. All troponins are between 0.5 and 0.7. Has no CP and underlying left bundle -branch block. Echo Nl EF and no vegetations. On aspirin and beta-lisbeth, and hold off on the statin in view of rhabdomyolysis. 2. Hypertension. On Lopressor 25 mg b.i.d. 3. LBBB and sinus dorian in 30s. Decrease Lopressor to 12.5 bid 4. Uncontrolled diabetes. 5. Heart failure. BNP of more than 24,000. Echocardiogram Nl EF. Could be HFpEF 6. Urinary tract infection, on IV antibiotic. 7. 4/4 Strep Bacteremia with WBC 25K. R/O endocarditis. ERIBERTO pending 8. Renal failure. Creatinine of 1.7. DW Dr. Mcfadden and Eloy Subjective Subjective Remained in SR with LBBB. Had sinus dorian in [address] sleeping[address] Lyons at bedside Objective Last 24 Hour Vital Signs Date Time Temp Pulse Resp B/P (MAP) Pulse Ox O2 Delivery O2 Flow Rate FiO2 08/27/19 09:03 58 151/62 08/27/19 08:00 97.2 58 17 151/62 (91) 100 08/27/19 08:00 Room Air 08/27/19 07:49 67 08/27/19 07:31 34 08/27/19 04:00 Room Air 08/27/19 04:00 76 08/27/19 04:00 98.1 75 20 143/59 (87) 98 08/27/19 00:00 Room Air 08/27/19 00:00 97.9 80 20 142/58 (86) 99 08/27/19 00:00 69 08/26/19 21:17 80 144/56 08/26/19 20:00 80 08/26/19 20:00 Room Air 08/26/19 20:00 97.7 80 18 144/56 (85) 97 08/26/19 16:00 97.9 76 18 95/47 (63) 98 08/26/19 16:00 Room Air 08/26/19 16:00 74 08/26/19 12:00 74 08/26/19 12:00 Room Air 08/26/19 12:00 97.7 77 18 126/83 (97) 98 Intake and Output 08/26/19 08/27/19 19:00 07:00 Intake Total 155 ml Output Total 400 ml 400 ml Balance -400 ml -245 ml Intake Oral 100 ml IV Total 55 ml Output Urine Total 400 ml 400 ml # Bowel Movements 6 5 Laboratory Tests Test 08/26/19 12:30 08/27/19 03:25 Activated Partial Thromboplast Time 96 SEC (23-33) H White Blood Count 14.9 K/UL (4.8-10.8) H Red Blood Count 2.74 M/UL (4.20-5.40) L Hemoglobin 7.7 G/DL (12.0-16.0) L Hematocrit 23.2 % (37.0-47.0) L Mean Corpuscular Volume 85 FL (80-99) Mean Corpuscular Hemoglobin 28.0 PG (27.0-31.0) Mean Corpuscular Hemoglobin Concent 33.0 G/DL (32.0-36.0) Red Cell Distribution Width 12.4 % (11.6-14.8) Platelet Count 202 K/UL (150-450) Mean Platelet Volume 7.3 FL (6.5-10.1) Neutrophils (%) (Auto) % (45.0-75.0) Lymphocytes (%) (Auto) % (20.0-45.0) Monocytes (%) (Auto) % (1.0-10.0) Eosinophils (%) (Auto) % (0.0-3.0) Basophils (%) (Auto) % (0.0-2.0) Differential Total Cells Counted 100 Neutrophils % (Manual) 95 % (45-75) H Lymphocytes % (Manual) 3 % (20-45) L Monocytes % (Manual) 2 % (1-10) Eosinophils % (Manual) 0 % (0-3) Basophils % (Manual) 0 % (0-2) Band Neutrophils 0 % (0-8) Platelet Estimate Adequate Platelet Morphology Normal Hypochromasia 1+ Sodium Level 144 MMOL/L (136-145) Potassium Level 3.0 MMOL/L (3.5-5.1) L Chloride Level 110 MMOL/L (98-107) H Carbon Dioxide Level 20 MMOL/L (21-32) L Anion Gap 15 mmol/L (5-15) Blood Urea Nitrogen 35 mg/dL (7-18) H Creatinine 1.3 MG/DL (0.55-1.30) Estimat Glomerular Filtration Rate mL/min (>60) Glucose Level 231 MG/DL (74-106) H Hemoglobin A1c 9.1 % (4.3-6.0) H Calcium Level 8.0 MG/DL (8.5-10.1) L Total Bilirubin 0.4 MG/DL (0.2-1.0) Aspartate Amino Transf (AST/SGOT) 51 U/L (15-37) H Alanine Aminotransferase (ALT/SGPT) 15 U/L (12-78) Alkaline Phosphatase 168 U/L (46-116) H Total Creatine Kinase 366 U/L (26-308) H Total Protein 6.5 G/DL (6.4-8.2) Albumin 1.9 G/DL (3.4-5.0) L Globulin 4.6 g/dL Albumin/Globulin Ratio 0.4 (1.0-2.7) L Random Vancomycin Level 19.0 ug/mL Microbiology Date/Time Source Procedure Growth Status 08/26/19 03:50 Blood Blood Culture - Preliminary NO GROWTH AFTER 24 HOURS Resulted 08/26/19 03:45 Blood Blood Culture - Preliminary NO GROWTH AFTER 24 HOURS Resulted 08/24/19 13:35 Blood Blood Culture - Final Strep Agalactiae Group B Complete 08/24/19 13:25 Blood Blood Culture - Final Strep Agalactiae Group B Complete 08/24/19 14:25 Urine,Clean Catch Urine Culture - Final Escherichia Coli - Esbl Complete Objective HEAD AND NECK: No JVD or carotid bruits. LUNGS: Clear. CARDIOVASCULAR: Regular S1 and S2 with no gallop or murmur. ABDOMEN: Soft. EXTREMITIES: No pitting edema. Luis Purdy MD Aug 27, 2019 10:56
[2019-08-27 12:00] VITALS: BP 127/83
--- NOTE | 2019-08-27 12:09 | NUR ---
RD ASSESSMENT & RECOMMENDATIONS SEE CARE ACTIVITY FOR COMPLETE ASSESSMENT DAILY ESTIMATED NEEDS: Needs based on Wounds, DM 49kg 30-35 kcals/kg 0697-6333 total kcals 1.25-2 g protein/kg 61-98 g total protein 25-30ml/kcal mL/kg 1177-4974 total fluid mLs NUTRITION DIAGNOSIS: Increased kcal and pro needs r/t wound healing as evidenced by pt w/ multiple areas of skin breakdown including unstageable L hip wounds x2, refer to WC eval for full assessment. CURRENT DIET: Regular liq puree HTL + Glucerna PO DIET RECOMMENDATIONS: Continue liberalized Regular diet/ texture per LOCK EXPERT ENTERAL NUTRITION RECOMMENDATIONS: * Consult RD for TF recs w/ continued poor po intake * ADDITIONAL RECOMMENDATIONS: 1) Glucerna TID; w/ poor po intake of meals rec Ensure Enlive TID 2) Increase hypoglycemics 3) Wound care: if tolerated ANTONIA Fruit Punch BID + Vit C 250mg BID + MVI w/ min qDaily 4) Calibrated bed scale wts daily 5) REC NON ORAL FEEDS W/ CONTINUED POOR PO INTAKE
--- NOTE | 2019-08-27 12:20 | Surgery Progress Note ---
Surgery Progress Note Subjective Additional Comments wbc trending down labs noted exam stable no n/v/f/c Objective Last 24 Hour Vital Signs Date Time Temp Pulse Resp B/P (MAP) Pulse Ox O2 Delivery O2 Flow Rate FiO2 08/27/19 12:00 Room Air 08/27/19 09:03 58 151/62 08/27/19 08:00 97.2 58 17 151/62 (91) 100 08/27/19 08:00 Room Air 08/27/19 07:49 67 08/27/19 07:31 34 08/27/19 04:00 Room Air 08/27/19 04:00 76 08/27/19 04:00 98.1 75 20 143/59 (87) 98 08/27/19 00:00 Room Air 08/27/19 00:00 97.9 80 20 142/58 (86) 99 08/27/19 00:00 69 08/26/19 21:17 80 144/56 08/26/19 20:00 80 08/26/19 20:00 Room Air 08/26/19 20:00 97.7 80 18 144/56 (85) 97 08/26/19 16:00 97.9 76 18 95/47 (63) 98 08/26/19 16:00 Room Air 08/26/19 16:00 74 I&O Intake and Output 08/26/19 08/27/19 19:00 07:00 Intake Total 155 ml Output Total 400 ml 400 ml Balance -400 ml -245 ml Intake Oral 100 ml IV Total 55 ml Output Urine Total 400 ml 400 ml # Bowel Movements 6 5 Laboratory Tests Test 08/26/19 12:30 08/27/19 03:25 Activated Partial Thromboplast Time 96 SEC (23-33) H White Blood Count 14.9 K/UL (4.8-10.8) H Red Blood Count 2.74 M/UL (4.20-5.40) L Hemoglobin 7.7 G/DL (12.0-16.0) L Hematocrit 23.2 % (37.0-47.0) L Mean Corpuscular Volume 85 FL (80-99) Mean Corpuscular Hemoglobin 28.0 PG (27.0-31.0) Mean Corpuscular Hemoglobin Concent 33.0 G/DL (32.0-36.0) Red Cell Distribution Width 12.4 % (11.6-14.8) Platelet Count 202 K/UL (150-450) Mean Platelet Volume 7.3 FL (6.5-10.1) Neutrophils (%) (Auto) % (45.0-75.0) Lymphocytes (%) (Auto) % (20.0-45.0) Monocytes (%) (Auto) % (1.0-10.0) Eosinophils (%) (Auto) % (0.0-3.0) Basophils (%) (Auto) % (0.0-2.0) Differential Total Cells Counted 100 Neutrophils % (Manual) 95 % (45-75) H Lymphocytes % (Manual) 3 % (20-45) L Monocytes % (Manual) 2 % (1-10) Eosinophils % (Manual) 0 % (0-3) Basophils % (Manual) 0 % (0-2) Band Neutrophils 0 % (0-8) Platelet Estimate Adequate Platelet Morphology Normal Hypochromasia 1+ Sodium Level 144 MMOL/L (136-145) Potassium Level 3.0 MMOL/L (3.5-5.1) L Chloride Level 110 MMOL/L (98-107) H Carbon Dioxide Level 20 MMOL/L (21-32) L Anion Gap 15 mmol/L (5-15) Blood Urea Nitrogen 35 mg/dL (7-18) H Creatinine 1.3 MG/DL (0.55-1.30) Estimat Glomerular Filtration Rate mL/min (>60) Glucose Level 231 MG/DL (74-106) H Hemoglobin A1c 9.1 % (4.3-6.0) H Calcium Level 8.0 MG/DL (8.5-10.1) L Total Bilirubin 0.4 MG/DL (0.2-1.0) Aspartate Amino Transf (AST/SGOT) 51 U/L (15-37) H Alanine Aminotransferase (ALT/SGPT) 15 U/L (12-78) Alkaline Phosphatase 168 U/L (46-116) H Total Creatine Kinase 366 U/L (26-308) H Total Protein 6.5 G/DL (6.4-8.2) Albumin 1.9 G/DL (3.4-5.0) L Globulin 4.6 g/dL Albumin/Globulin Ratio 0.4 (1.0-2.7) L Random Vancomycin Level 19.0 ug/mL Plan Problems: (1) Decubitus skin ulcer Assessment & Plan: Pt presented on admission with multiple pressure injuries. DTPI Sacrum (L)10cm x (W)9cm with small slit at sacrococcygeal area(L)0.5cm- small amt sanguineous exudate noted.Base of wound is maroon and indurated. Two Unstageable pressure injuries in close proximity noted to L hip. Base of each wound is necrotic and soft with marginal erythema.(L)2cm x (W)3.7cm NO erythema or odor noted. Historical Scar noted at L hip in close proximity to wound. L heel boggy with non-blanching erythema.(L)4cm x (W)4.5cm R heel boggy with non-blanching erythema.(L)5cm x (W)6cm. Pt noted to have several small black droppings in bed. Upon further inspection. Single small brownish bug observed crawling in bed. At posterior aspect of neck pt noted to have macular red rash.Red rash also noted to L axilla .Complete bed Bath provided.And all bed linen removed and mattress sanitized. EVS was notified by Primary nurse. Tx.plan: Apply Moisture Barrier Paste to Sacrum. Cover with Optifoam drsg. Change every 3 days and prn. Cleanse L hip with Saline. Apply Therahoney. Apply Cavilon Skin Barrier periwound.Cover with Optifoam drsg. Change every 3 days and prn. Apply Cavilon Skin Barrier to both heels. Cover each heel with Optifoam drsg. Change every 7 days and prn. APM/YURIY mattress overlay. Reposition at least every 2hours or as tolerated. Off-load heels with pillow. (2) Sepsis Assessment & Plan: Leukocytosis, abnormal labs, tachycardic, per report fevers UA identified urosepsis bacteremic On antibiotics as per infectious disease Trend labs Okay for diet A.m. labs Wounds unlikely etiology of sepsis as they are chronic and do not look actively infected We will follow with recommendations thank you for let me participate in patient' s care Darrius Miller Aug 27, 2019 12:20
[2019-08-27 16:00] VITALS: BP 148/73
--- NOTE | 2019-08-27 19:32 | NUR ---
HAND-OFF: Report given to Cary QUIROS. Pt. remain stable.
--- NOTE | 2019-08-27 19:33 | NUR ---
NURSE NOTES: received pt from Rojleio RN., pt is awake and AOx2 Mongolian speaker. pt is on the bed resting. Right FA 22 G Iv intact, clean, and patent. pt is at the RA and O2sat is at 98%. call light within reach. bed at the lowest position, alarmed, and locked. will continue to monitor pt with plan of care.
[2019-08-27 20:00] VITALS: BP 138/60
[2019-08-27] MEDS: Metoprolol Tartrate 12.5mg TAB ORAL SCH (20:46)
[2019-08-28] VITALS: BP 144/60
[2019-08-28 04:00] VITALS: BP 146/67
[2019-08-28] MEDS: Meropenem 500mg/NS 55ml IVPB SCH ×4 (04:18→17:57)
[2019-08-28] MEDS: NovoLOG Insulin Flexpen SUBQ SCH ×4 (06:30→20:09)
--- NOTE | 2019-08-28 07:44 | NUR ---
HAND-OFF: Report given to Mery Castaneda RN. pt is stable condition, endorsed plan of care.
--- NOTE | 2019-08-28 07:50 | NUR ---
NURSE NOTES: received pt in the bed, awake, confused, vital signs stable, no co pain, no SIB, skin warm and dry to touch, dressing dry and intact,Buckner catheter with yellow urine, feeder, RA, o2 sat 98%, bed in low position, call light within reach.
[2019-08-28 08:00] VITALS: BP 160/67
[2019-08-28] MEDS: Levodopa/Carbidopa 10/100 tab ORAL SCH ×3 (08:16→17:56)
[2019-08-28] MEDS: Metoprolol Tartrate 12.5mg TAB ORAL SCH (08:17)
[2019-08-28] MEDS: Aspirin Baby 81mg ORAL SCH (08:17)
--- NOTE | 2019-08-28 10:00 | General Progress Note ---
Assessment/Plan Problem List: (1) Bacteremia due to group B Streptococcus ICD Codes: R78.81 - Bacteremia SNOMED: 547826207223 (2) Severe sepsis ICD Codes: A41.9 - Sepsis, unspecified organism; R65.20 - Severe sepsis without septic shock SNOMED: 67035600 (3) Toxic metabolic encephalopathy ICD Codes: G92 - Toxic encephalopathy SNOMED: 806148552 (4) Diabetes mellitus with hyperglycemia ICD Codes: E11.65 - Type 2 diabetes mellitus with hyperglycemia SNOMED: 02052099, 75199791 (5) OWEN (acute kidney injury) ICD Codes: N17.9 - Acute kidney failure, unspecified SNOMED: 3390608, 79748872 (6) NSTEMI (non-ST elevated myocardial infarction) ICD Codes: I21.4 - Non-ST elevation (NSTEMI) myocardial infarction SNOMED: 99170145, 459655630 (7) Urinary tract infection due to ESBL Klebsiella ICD Codes: N39.0 - Urinary tract infection, site not specified; B96.89 - Other specified bacterial agents as the cause of diseases classified elsewhere SNOMED: 296660076, 673287812535281 (8) Suspected acute on chronic CHF (9) Decubitus skin ulcer ICD Codes: L89.90 - Pressure ulcer of unspecified site, unspecified stage SNOMED: 784193553 (10) ATN (acute tubular necrosis) ICD Codes: N17.0 - Acute kidney failure with tubular necrosis SNOMED: 73788068 (11) Parkinson disease ICD Codes: G20 - Parkinson disease SNOMED: 94029204 Status: stable Assessment/Plan: 84-year-old lady from [facility] with history of hypertension, uncontrolled diabetes, and Parkinson disease, who was brought to the emergency room by family member for altered mental status and weakness. Found to have severe sepsis due to ESBL UTI, groub b strep bacteremia, OWEN vs OWEN on CKD and NSTEMI. Heart failure. BNP of more than 24,000. Echocardiogram Nl EF. ?HFpEF. Now improving. Plan: - PCU level of care - cardiology consult - heparin gtt per acs protocol, DC per cards, no chest pain, stable troponin. Continue ASA, beta lisbeth (Lopressor 25), hold off on statin due to rhabdomyolysis. Decrease Lopressor to 12.5 mg bid due to low heart rate - trend tn/ekg - TTE, normal EF, no vegetations, in view of strep bacteremia in 4/4 bottles, may need a ERIBERTO to r/o endocarditis - hold IVF at this time - s/p lasix 20 IV x on admit - ID consult - c/w empiric vanco/zosyn, switched to meropenem based on sensitivities - follow urine and blood cx's. / strep bacteremia with wbc 25k--> now 14 , cbc pending today, repeat blood cultures no growth to date - c/w PD regimen - insulin sliding scale ac/hs, A1c 9 - supportive care - delirium precautions -d/w ID -discuss goal of care with family, rebel [phone] Time of this note may not reflect the time of the clinical encounter. Subjective Date patient seen: Aug 28, 2019 ROS Limited/Unobtainable: Yes Allergies: Coded Allergies: No Known Allergies (Unverified , 10/23/13) Subjective poor historian. following up for severe sepsis, group b strep bacteremia, ESBL UTI, OWEN, NSTEMI. Denies any chest pain or sob, alert and awake, follow simple commands. tele reviewed. SR at 30's , LBBB, last night episodes of vtach. cbc pending. renal function trending down Objective Last 24 Hour Vital Signs Date Time Temp Pulse Resp B/P (MAP) Pulse Ox O2 Delivery O2 Flow Rate FiO2 08/28/19 08:17 76 160/67 08/28/19 08:00 Room Air 08/28/19 08:00 97.9 76 19 160/67 (98) 98 08/28/19 04:00 97.5 75 16 146/67 (93) 100 08/28/19 04:00 Room Air 08/28/19 04:00 77 08/28/19 00:00 Room Air 08/28/19 00:00 98.1 71 16 144/60 (88) 100 08/27/19 23:29 68 08/27/19 21:44 76 08/27/19 20:46 67 138/60 08/27/19 20:02 76 08/27/19 20:00 97.4 67 16 138/60 (86) 100 08/27/19 20:00 Room Air 08/27/19 16:00 Room Air 1/21/20 16:00 97.2 79 17 148/73 (98) 99 08/27/19 15:25 81 08/27/19 12:03 73 08/27/19 12:00 Room Air 08/27/19 12:00 97.4 68 18 127/83 (98) 99 Intake and Output 08/27/19 08/28/19 19:00 07:00 Intake Total 230 ml Output Total 600 ml 350 ml Balance -600 ml -120 ml Intake Oral 120 ml IV Total 110 ml Output Urine Total 600 ml 350 ml # Bowel Movements 2 1 Height (Feet): 5 Height (Inches): 3.00 Weight (Pounds): 110 Objective General Appearance: WD/WN, no apparent distress, awake, confused HEENT: normocephalic, atraumatic, PERRL, EOMI, supple, no JVD Neck: non-tender, normal alignment, supple Respiratory/Chest: chest wall non-tender, lungs clear, normal breath sounds, no respiratory distress, no accessory muscle use Cardiovascular/Chest: normal peripheral pulses, normal rate, regular rhythm, no gallop/murmur, no JVD Abdomen: non tender, soft, no organomegaly Extremities: no edema, no cyanosis Neurologic: disoriented Chago Lyons M.D. Aug 28, 2019 10:00
[2019-08-28 11:22] LABS: ALANINE AMINOTRANSFERASE 19 U/L (12-78); ALBUMIN 1.9 G/DL (3.4-5.0); ALBUMIN/GLOBULIN RATIO 0.4 (1.0-2.7); ALKALINE PHOSPHATASE 162 U/L (46-116); ANION GAP 9 mmol/L (5-15); ASPARTATE AMINO TRANSFERASE 30 U/L (15-37); BILIRUBIN,TOTAL 0.3 MG/DL (0.2-1.0); BLOOD UREA NITROGEN 28 mg/dL (7-18); CALCIUM 8.4 MG/DL (8.5-10.1); CARBON DIOXIDE 25 MMOL/L (21-32); CHLORIDE 112 MMOL/L (98-107); CREATININE 1.1 MG/DL (0.55-1.30); POTASSIUM 3.7 MMOL/L (3.5-5.1); SODIUM 145 MMOL/L (136-145)
[2019-08-28 12:00] VITALS: BP 162/63
--- NOTE | 2019-08-28 14:14 | Surgery Progress Note ---
Surgery Progress Note Subjective Additional Comments labs pending exam stable ill appearing Objective Last 24 Hour Vital Signs Date Time Temp Pulse Resp B/P (MAP) Pulse Ox O2 Delivery O2 Flow Rate FiO2 08/28/19 08:17 76 160/67 08/28/19 08:00 Room Air 08/28/19 08:00 97.9 76 19 160/67 (98) 98 08/28/19 08:00 79 08/28/19 04:00 97.5 75 16 146/67 (93) 100 08/28/19 04:00 Room Air 08/28/19 04:00 77 08/28/19 00:00 Room Air 08/28/19 00:00 98.1 71 16 144/60 (88) 100 08/27/19 23:29 68 08/27/19 21:44 76 08/27/19 20:46 67 138/60 08/27/19 20:02 76 08/27/19 20:00 97.4 67 16 138/60 (86) 100 08/27/19 20:00 Room Air 08/27/19 16:00 Room Air 08/27/19 16:00 97.2 79 17 148/73 (98) 99 08/27/19 15:25 81 I&O Intake and Output 08/27/19 08/28/19 19:00 07:00 Intake Total 230 ml Output Total 600 ml 350 ml Balance -600 ml -120 ml Intake Oral 120 ml IV Total 110 ml Output Urine Total 600 ml 350 ml # Bowel Movements 2 1 Dressing: other Wound: other Drains: other Cardiovascular: RSR Respiratory: decreased breath sounds Abdomen: soft, present bowel sounds Extremities: no cyanosis, other Laboratory Tests Test 08/28/19 10:45 White Blood Count Pending Red Blood Count Pending Hemoglobin Pending Hematocrit Pending Mean Corpuscular Volume Pending Mean Corpuscular Hemoglobin Pending Mean Corpuscular Hemoglobin Concent Pending Red Cell Distribution Width Pending Platelet Count Pending Mean Platelet Volume Pending Neutrophils (%) (Auto) Pending Lymphocytes (%) (Auto) Pending Monocytes (%) (Auto) Pending Eosinophils (%) (Auto) Pending Basophils (%) (Auto) Pending Sodium Level 145 MMOL/L (136-145) Potassium Level 3.7 MMOL/L (3.5-5.1) Chloride Level 112 MMOL/L (98-107) H Carbon Dioxide Level 25 MMOL/L (21-32) Anion Gap 9 mmol/L (5-15) Blood Urea Nitrogen 28 mg/dL (7-18) H Creatinine 1.1 MG/DL (0.55-1.30) Estimat Glomerular Filtration Rate mL/min (>60) Glucose Level 295 MG/DL (74-106) H Calcium Level 8.4 MG/DL (8.5-10.1) L Total Bilirubin 0.3 MG/DL (0.2-1.0) Aspartate Amino Transf (AST/SGOT) 30 U/L (15-37) Alanine Aminotransferase (ALT/SGPT) 19 U/L (12-78) Alkaline Phosphatase 162 U/L (46-116) H Troponin I 0.464 ng/mL (0.000-0.056) Total Protein 6.9 G/DL (6.4-8.2) Albumin 1.9 G/DL (3.4-5.0) L Globulin 5.0 g/dL Albumin/Globulin Ratio 0.4 (1.0-2.7) L Plan Problems: (1) Decubitus skin ulcer Assessment & Plan: Pt presented on admission with multiple pressure injuries. DTPI Sacrum (L)10cm x (W)9cm with small slit at sacrococcygeal area(L)0.5cm- small amt sanguineous exudate noted.Base of wound is maroon and indurated. Two Unstageable pressure injuries in close proximity noted to L hip. Base of each wound is necrotic and soft with marginal erythema.(L)2cm x (W)3.7cm NO erythema or odor noted. Historical Scar noted at L hip in close proximity to wound. L heel boggy with non-blanching erythema.(L)4cm x (W)4.5cm R heel boggy with non-blanching erythema.(L)5cm x (W)6cm. Pt noted to have several small black droppings in bed. Upon further inspection. Single small brownish bug observed crawling in bed. At posterior aspect of neck pt noted to have macular red rash.Red rash also noted to L axilla .Complete bed Bath provided.And all bed linen removed and mattress sanitized. EVS was notified by Primary nurse. Tx.plan: Apply Moisture Barrier Paste to Sacrum. Cover with Optifoam drsg. Change every 3 days and prn. Cleanse L hip with Saline. Apply Therahoney. Apply Cavilon Skin Barrier periwound.Cover with Optifoam drsg. Change every 3 days and prn. Apply Cavilon Skin Barrier to both heels. Cover each heel with Optifoam drsg. Change every 7 days and prn. APM/YURIY mattress overlay. Reposition at least every 2hours or as tolerated. Off-load heels with pillow. (2) Sepsis Assessment & Plan: Leukocytosis, abnormal labs, tachycardic, per report fevers UA identified urosepsis bacteremic On antibiotics as per infectious disease Trend labs Okay for diet A.m. labs Wounds unlikely etiology of sepsis as they are chronic and do not look actively infected We will follow with recommendations thank you for let me participate in patient' s care Darrius Miller Aug 28, 2019 14:14
[2019-08-28 14:30] LABS: HEMATOCRIT 25.3 % (37.0-47.0); HEMOGLOBIN 7.9 G/DL (12.0-16.0); MEAN CORPUSCULAR VOLUME 86 FL (80-99); RED BLOOD COUNT 2.94 M/UL (4.20-5.40); WHITE BLOOD COUNT 11.5 K/UL (4.8-10.8)
[2019-08-28 14:31] LABS: PLATELET COUNT 152 K/UL (150-450); RED CELL DISTRIBUTION WIDTH 14.6 % (11.6-14.8)
--- NOTE | 2019-08-28 15:00 | NUR ---
NURSE NOTES: vital signs stable, no co pain, pt had last night V tach 12 in a roll, and today 2 degree AV block, dr. Purdy aware, continue monitoring.
--- NOTE | 2019-08-28 15:10 | Cardiac Electrophysiology PN ---
Assessment/Plan Assessment/Plan 1. Elevated troponin due to renal failure. BUN is 28 and creatinine 1.7. All troponins are between 0.5 and 0.7. Has no CP and underlying left bundle -branch block. Echo Nl EF and no vegetations. On aspirin and beta-lisbeth, and hold off on the statin in view of rhabdomyolysis. 2. Hypertension. On Lopressor 1.25 mg b.i.d. 3. LBBB and sinus dorian in 30s. DC Lopressor 4. Nonsustained VT. . 5. Heart failure. BNP of more than 24,000. Echocardiogram Nl EF. Could be HFpEF 6. Urinary tract infection, on IV antibiotic. 7. 4/4 Strep Bacteremia with WBC 25K. R/O endocarditis. ERIBERTO pending if remains full code 8. Renal failure. Creatinine of 1.7. 9. Uncontrolled diabetes DW Dr. Mcfadden and Eloy Subjective Subjective Remained in SR with LBBB and dorian in 30s. Also had 12 beats of nonsustained VT Objective Last 24 Hour Vital Signs Date Time Temp Pulse Resp B/P (MAP) Pulse Ox O2 Delivery O2 Flow Rate FiO2 08/28/19 12:00 81 08/28/19 12:00 Room Air 08/28/19 12:00 98.4 74 19 162/63 (96) 98 08/28/19 08:17 76 160/67 08/28/19 08:00 Room Air 08/28/19 08:00 97.9 76 19 160/67 (98) 98 08/28/19 08:00 79 08/28/19 04:00 97.5 75 16 146/67 (93) 100 08/28/19 04:00 Room Air 08/28/19 04:00 77 08/28/19 00:00 Room Air 08/28/19 00:00 98.1 71 16 144/60 (88) 100 08/27/19 23:29 68 08/27/19 21:44 76 08/27/19 20:46 67 138/60 08/27/19 20:02 76 08/27/19 20:00 97.4 67 16 138/60 (86) 100 08/27/19 20:00 Room Air 08/27/19 16:00 Room Air 08/27/19 16:00 97.2 79 17 148/73 (98) 99 08/27/19 15:25 81 Intake and Output 08/27/19 08/28/19 19:00 07:00 Intake Total 230 ml Output Total 600 ml 350 ml Balance -600 ml -120 ml Intake Oral 120 ml IV Total 110 ml Output Urine Total 600 ml 350 ml # Bowel Movements 2 1 Laboratory Tests Test 08/28/19 10:45 White Blood Count 11.5 K/UL (4.8-10.8) H Red Blood Count 2.94 M/UL (4.20-5.40) L Hemoglobin 7.9 G/DL (12.0-16.0) L Hematocrit 25.3 % (37.0-47.0) L Mean Corpuscular Volume 86 FL (80-99) Mean Corpuscular Hemoglobin 26.9 PG (27.0-31.0) L Mean Corpuscular Hemoglobin Concent 31.2 G/DL (32.0-36.0) L Red Cell Distribution Width 14.6 % (11.6-14.8) Platelet Count 152 K/UL (150-450) Mean Platelet Volume 12.6 FL (6.5-10.1) H Neutrophils (%) (Auto) % (45.0-75.0) Lymphocytes (%) (Auto) % (20.0-45.0) Monocytes (%) (Auto) % (1.0-10.0) Eosinophils (%) (Auto) % (0.0-3.0) Basophils (%) (Auto) % (0.0-2.0) Neutrophils % (Manual) Pending Lymphocytes % (Manual) Pending Platelet Estimate Pending Platelet Morphology Pending Sodium Level 145 MMOL/L (136-145) Potassium Level 3.7 MMOL/L (3.5-5.1) Chloride Level 112 MMOL/L (98-107) H Carbon Dioxide Level 25 MMOL/L (21-32) Anion Gap 9 mmol/L (5-15) Blood Urea Nitrogen 28 mg/dL (7-18) H Creatinine 1.1 MG/DL (0.55-1.30) Estimat Glomerular Filtration Rate mL/min (>60) Glucose Level 295 MG/DL (74-106) H Calcium Level 8.4 MG/DL (8.5-10.1) L Total Bilirubin 0.3 MG/DL (0.2-1.0) Aspartate Amino Transf (AST/SGOT) 30 U/L (15-37) Alanine Aminotransferase (ALT/SGPT) 19 U/L (12-78) Alkaline Phosphatase 162 U/L (46-116) H Troponin I 0.464 ng/mL (0.000-0.056) Total Protein 6.9 G/DL (6.4-8.2) Albumin 1.9 G/DL (3.4-5.0) L Globulin 5.0 g/dL Albumin/Globulin Ratio 0.4 (1.0-2.7) L Microbiology Date/Time Source Procedure Growth Status 08/26/19 03:50 Blood Blood Culture - Preliminary NO GROWTH AFTER 24 HOURS Resulted 08/26/19 03:45 Blood Blood Culture - Preliminary NO GROWTH AFTER 24 HOURS Resulted Objective HEAD AND NECK: No JVD LUNGS: Clear. CARDIOVASCULAR: Regular S1 and S2 with no gallop or murmur. ABDOMEN: Soft. EXTREMITIES: No pitting edema. Luis Purdy MD Aug 28, 2019 15:09
[2019-08-28 16:00] VITALS: BP 154/66
--- NOTE | 2019-08-28 18:05 | Infectious Diseases Prog Note ---
Assessment/Plan Assessment/Plan ASSESSMENT AND PLAN: 1. streptococcus bacteremia, ? endocarditis, esbl e.coli uti, sirs, leukocytosis - meropenem and vancomycin - day # 5 antibiotics - d/w cardiology - ERIBERTO planned - f/u blood cultures negative, monitor labs 2. Acute kidney injury with elevated creatinine. 3. History of diabetes. 4. weakness 5. Blood pressure treatment per primary care team and diabetes treatment per primary care team and consultants. 6. Parkinson's. 7. Dementia. 8. The patient does have also elevated troponin. Cardiology follow-up. 9. MAR was noted. 10. Case was discussed with RN. 11. No known allergies. 12. Social history is negative. 13. Family history is noncontributory. 14. Continue treatment per primary consultants. 15. Orders were noted and entered. Subjective Constitutional: Denies: fever HEENT: Denies: congestion Respiratory: Denies: shortness of breath Cardiovascular: Denies: chest pain Gastrointestinal/Abdominal: Denies: nausea, vomiting, diarrhea Genitourinary: Reports: other - + arnold Neurologic: Denies: headache Psychiatric: Denies: depression Skin: Denies: rash Hematologic: Denies: bleeding Musculoskeletal: Denies: pain Allergies: Coded Allergies: No Known Allergies (Unverified , 10/23/13) Objective Vital Signs Last 24 Hour Vital Signs Date Time Temp Pulse Resp B/P (MAP) Pulse Ox O2 Delivery O2 Flow Rate FiO2 08/28/19 12:00 81 08/28/19 12:00 Room Air 08/28/19 12:00 98.4 74 19 162/63 (96) 98 08/28/19 08:17 76 160/67 08/28/19 08:00 Room Air 08/28/19 08:00 97.9 76 19 160/67 (98) 98 08/28/19 08:00 79 08/28/19 04:00 97.5 75 16 146/67 (93) 100 08/28/19 04:00 Room Air 08/28/19 04:00 77 08/28/19 00:00 Room Air 08/28/19 00:00 98.1 71 16 144/60 (88) 100 08/27/19 23:29 68 08/27/19 21:44 76 08/27/19 20:46 67 138/60 1/21/20 20:02 76 08/27/19 20:00 97.4 67 16 138/60 (86) 100 08/27/19 20:00 Room Air Height (Feet): 5 Height (Inches): 3.00 Weight (Pounds): 114 General Appearance: no acute distress HEENT: normocephalic, atraumatic, anicteric, mucous membranes moist Respiratory/Chest: lungs clear, normal breath sounds, no respiratory distress, no accessory muscle use Cardiovascular: normal rate, regular rhythm, no gallop/murmur, no JVD Abdomen: normal bowel sounds, soft, non tender, no organomegaly, non distended Genitourinary: other - + arnold - urine slt cloudy Extremities: no cyanosis Skin: no rash Neurologic/Psychiatric: reconstructive dentist II-XII grossly normal, 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 Pleural space: Unremarkable. No pneumothorax. Heart: Borderline cardiomegaly, potentially exaggerated by portable technique. Mediastinum: Calcified aorta. Bones/joints: Osteopenia. Degenerative changes. IMPRESSION: Mild vascular congestion Microbiology Date/Time Source Procedure Growth Status 08/26/19 03:50 Blood Blood Culture - Preliminary NO GROWTH AFTER 24 HOURS Resulted 08/24/19 14:25 Urine,Clean Catch Urine Culture - Final Escherichia Coli - Esbl Complete Microbiology Date/Time Source Procedure Growth Status 08/26/19 03:50 Blood Blood Culture - Preliminary NO GROWTH AFTER 24 HOURS Resulted 08/26/19 03:45 Blood Blood Culture - Preliminary NO GROWTH AFTER 24 HOURS Resulted Laboratory Tests Test 08/28/19 10:45 White Blood Count 11.5 K/UL (4.8-10.8) H Red Blood Count 2.94 M/UL (4.20-5.40) L Hemoglobin 7.9 G/DL (12.0-16.0) L Hematocrit 25.3 % (37.0-47.0) L Mean Corpuscular Volume 86 FL (80-99) Mean Corpuscular Hemoglobin 26.9 PG (27.0-31.0) L Mean Corpuscular Hemoglobin Concent 31.2 G/DL (32.0-36.0) L Red Cell Distribution Width 14.6 % (11.6-14.8) Platelet Count 152 K/UL (150-450) Mean Platelet Volume 12.6 FL (6.5-10.1) H Neutrophils (%) (Auto) % (45.0-75.0) Lymphocytes (%) (Auto) % (20.0-45.0) Monocytes (%) (Auto) % (1.0-10.0) Eosinophils (%) (Auto) % (0.0-3.0) Basophils (%) (Auto) % (0.0-2.0) Neutrophils % (Manual) Pending Lymphocytes % (Manual) Pending Platelet Estimate Pending Platelet Morphology Pending Sodium Level 145 MMOL/L (136-145) Potassium Level 3.7 MMOL/L (3.5-5.1) Chloride Level 112 MMOL/L (98-107) H Carbon Dioxide Level 25 MMOL/L (21-32) Anion Gap 9 mmol/L (5-15) Blood Urea Nitrogen 28 mg/dL (7-18) H Creatinine 1.1 MG/DL (0.55-1.30) Estimat Glomerular Filtration Rate mL/min (>60) Glucose Level 295 MG/DL (74-106) H Calcium Level 8.4 MG/DL (8.5-10.1) L Total Bilirubin 0.3 MG/DL (0.2-1.0) Aspartate Amino Transf (AST/SGOT) 30 U/L (15-37) Alanine Aminotransferase (ALT/SGPT) 19 U/L (12-78) Alkaline Phosphatase 162 U/L (46-116) H Troponin I 0.464 ng/mL (0.000-0.056) Total Protein 6.9 G/DL (6.4-8.2) Albumin 1.9 G/DL (3.4-5.0) L Globulin 5.0 g/dL Albumin/Globulin Ratio 0.4 (1.0-2.7) L Current Medications Medications (Trade) Dose Ordered Sig/Krystin Route PRN Reason Start Time Stop Time Status Last Admin Dose Admin Acetaminophen (Tylenol) 650 mg Q4H PRN ORAL Mild Pain/Temp > 100.5 08/25/19 12:45 09/24/19 12:44 Aspirin (ASA) 81 mg DAILY ORAL 08/25/19 09:00 09/24/19 08:59 08/28/19 08:17 Carbidopa/Levodopa (Sinemet 10/100) 1 tab THREE TIMES A DAY ORAL 08/25/19 09:00 09/24/19 08:59 08/28/19 17:56 Dextrose (Dextrose 50%) 25 ml Q30M PRN IV Hypoglycemia 08/24/19 19:15 09/23/19 19:14 Dextrose (Dextrose 50%) 50 ml Q30M PRN IV Hypoglycemia 08/24/19 19:15 09/23/19 19:14 Insulin Aspart (NovoLOG) BEFORE MEALS AND HS SUBQ 08/24/19 21:00 09/23/19 20:59 08/28/19 12:35 Meropenem 500 mg/ Sodium Chloride 55 ml @ 110 mls/hr Q12HR@0400,1600 IVPB 08/26/19 16:00 08/31/19 15:59 08/28/19 17:57 Vancomycin HCl (Vanco rx to dose) 1 ea DAILY PRN MISC Per rx protocol 08/25/19 07:30 09/24/19 07:29 Gerardo Toledo MD Aug 28, 2019 18:05
--- NOTE | 2019-08-28 19:20 | NUR ---
NURSE NOTES: Received patient from ISHAAN Ordonez. Patient is observed in bed alert and oriented x 1-2. Pt denies pain at this time. Patient is currently on room air with an O2 saturation of 97% noted. No s/sx of respiratory distress noted at this time. engineering vice president shows SR with current heart rate of 78. No acute cardiac distress noted. Buckner catheter noted which remains patent and draining to gravity. Skin alterations noted. Right FA 22g IV catheter noted which remain asymptomatic, intact and patent currently running TKO. No signs or symptoms of active bleeding noted at this time. A small amount of trivedi colored vaginal discharge noted. Safety and aspiration precautions observed. Bed remains in the lowest position with safety wheels locked, side rails up X3, call light within reach and bed alarm activated. Will continue to monitor.
--- NOTE | 2019-08-28 19:33 | NUR ---
HAND-OFF: Report given to ELIANE QUIROS, no distress at this time..
[2019-08-28 20:00] VITALS: BP 148/63
[2019-08-29] VITALS: BP 156/77
--- NOTE | 2019-08-29 01:16 | NUR ---
NURSE NOTES: Pt noted to have 11 beats of V Tach. 12 Lead EKG performed at bedside results as follows: Normal Sinus Rhythm, left bundle branch block. Pt remains asymptomatic, declines SOB and CP. VS within normal limits. Called keg filler to notify of event. Will await call back. Will continue to monitor.
--- NOTE | 2019-08-29 02:00 | NUR ---
NURSE NOTES: Pt provided with bed bath, oral care, wound care and linen change. Pt tolerated care well. Small bowel movement noted. Bed remains in the lowest position with safety wheels engaged locked, side rails up X3, call light within reach and bed alarm activated. Will continue to monitor.
[2019-08-29 04:00] VITALS: BP 148/66
[2019-08-29] MEDS: Meropenem 500mg/NS 55ml IVPB SCH ×4 (04:22→16:53)
[2019-08-29 04:57] LABS: ANION GAP 8 mmol/L (5-15); BLOOD UREA NITROGEN 21 mg/dL (7-18); CALCIUM 8.5 MG/DL (8.5-10.1); CARBON DIOXIDE 24 MMOL/L (21-32); CHLORIDE 113 MMOL/L (98-107); CREATININE 0.9 MG/DL (0.55-1.30); POTASSIUM 3.2 MMOL/L (3.5-5.1); SODIUM 145 MMOL/L (136-145)
[2019-08-29 05:01] LABS: HEMATOCRIT 23.2 % (37.0-47.0); HEMOGLOBIN 7.7 G/DL (12.0-16.0); MEAN CORPUSCULAR VOLUME 85 FL (80-99); RED BLOOD COUNT 2.74 M/UL (4.20-5.40); RED CELL DISTRIBUTION WIDTH 12.7 % (11.6-14.8); WHITE BLOOD COUNT 10.7 K/UL (4.8-10.8)
[2019-08-29 05:02] LABS: PLATELET COUNT 136 K/UL (150-450)
--- NOTE | 2019-08-29 06:07 | NUR ---
NURSE NOTES: Pt NPO since 115. Awaiting call back from tailings worker regarding V Tach episode; NPO in case transesophageal ultrasound to be performed today to r/o endocarditis.
--- NOTE | 2019-08-29 06:20 | NUR ---
NURSE NOTES: Called to notify MD about K level of 3.2 Will await call back. Will continue to monitor.
[2019-08-29] MEDS: NovoLOG Insulin Flexpen SUBQ SCH ×4 (06:30→21:00)
--- NOTE | 2019-08-29 06:46 | NUR ---
NURSE NOTES: Per Dr Brito replace with 40 mEq of potassium. Will carry out orders. Will continue to monitor.
--- NOTE | 2019-08-29 07:06 | NUR ---
HAND-OFF: Report given to Mery Lugo RN. Pt remains stable at this time.
[2019-08-29 08:00] VITALS: BP 150/57
[2019-08-29] MEDS ORDERED: Vancomycin 1gm/D5W 275ml IVPB ONE ×2 (08:00)
--- NOTE | 2019-08-29 08:00 | NUR ---
NURSE NOTES: received pt in the bed, awake, confused, vital signs stable, no co pain, no SOB, skin warm and dry to touch, dressing dry and intact, tolerate diet well, feeder,K 3.2, 40 meq given, Buckner catheter with yellow urine, bed in low position, call light within reach.
[2019-08-29] MEDS: Levodopa/Carbidopa 10/100 tab ORAL SCH ×4 (08:42→18:28)
[2019-08-29] MEDS: Aspirin Baby 81mg ORAL SCH (08:43)
--- NOTE | 2019-08-29 10:07 | General Progress Note ---
Assessment/Plan Problem List: (1) Bacteremia due to group B Streptococcus ICD Codes: R78.81 - Bacteremia SNOMED: 239025300758 (2) Severe sepsis ICD Codes: A41.9 - Sepsis, unspecified organism; R65.20 - Severe sepsis without septic shock SNOMED: 39218461 (3) Toxic metabolic encephalopathy ICD Codes: G92 - Toxic encephalopathy SNOMED: 189252162 (4) Diabetes mellitus with hyperglycemia ICD Codes: E11.65 - Type 2 diabetes mellitus with hyperglycemia SNOMED: 69639665, 69241285 (5) OWEN (acute kidney injury) ICD Codes: N17.9 - Acute kidney failure, unspecified SNOMED: 5819602, 55525503 (6) NSTEMI (non-ST elevated myocardial infarction) ICD Codes: I21.4 - Non-ST elevation (NSTEMI) myocardial infarction SNOMED: 70272012, 277093409 (7) Urinary tract infection due to ESBL Klebsiella ICD Codes: N39.0 - Urinary tract infection, site not specified; B96.89 - Other specified bacterial agents as the cause of diseases classified elsewhere SNOMED: 984396041, 329261099876053 (8) Suspected acute on chronic CHF (9) Decubitus skin ulcer ICD Codes: L89.90 - Pressure ulcer of unspecified site, unspecified stage SNOMED: 896087537 (10) ATN (acute tubular necrosis) ICD Codes: N17.0 - Acute kidney failure with tubular necrosis SNOMED: 78300046 (11) Parkinson disease ICD Codes: G20 - Parkinson disease SNOMED: 18588280 Status: stable Assessment/Plan: 84-year-old lady from [facility] with history of hypertension, uncontrolled diabetes, and Parkinson disease, who was brought to the emergency room by family member for altered mental status and weakness. Found to have severe sepsis due to ESBL UTI, groub b strep bacteremia, OWEN vs OWEN on CKD and NSTEMI. Heart failure. BNP of more than 24,000. Echocardiogram Nl EF. ?HFpEF, multiple episode of nonsustained v tach Plan: - PCU level of care - cardiology consult appreciated - heparin gtt per acs protocol, DC per cards, no chest pain, stable troponin. Continue ASA, beta lisbeth (Lopressor 25), hold off on statin due to rhabdomyolysis. Decrease Lopressor to 12.5 mg bid due to low heart rate, stopped due to persistent bradycardia - trend tn/ekg - TTE, normal EF, no vegetations, in view of strep bacteremia in 4/4 bottles, ERIBERTO to r/o endocarditis. unable to do I am told due to bradycardia - ID consult appreciated - c/w empiric vanco/zosyn, switched to meropenem based on sensitivities - follow urine and blood cx's. / strep bacteremia with wbc 25k--> now 14 , cbc pending today, repeat blood cultures no growth to date - c/w PD regimen - insulin sliding scale ac/hs, A1c --> 9 - supportive care - delirium precautions -d/w ID -discuss goal of care with family, granddaughter [phone]. Called with no answer. I have asked the RN to call me when family at bedside. Time of this note may not reflect the time of the clinical encounter. Subjective Date patient seen: Aug 29, 2019 Allergies: Coded Allergies: No Known Allergies (Unverified , 10/23/13) Subjective poor historian. following up for severe sepsis, group b strep bacteremia, ESBL UTI, OWEN, NSTEMI, non sustained v tach. Denies any chest pain or sob, alert and awake, follow simple commands. tele reviewed. SR at 30's , LBBB, last night episodes of vtach. Objective Last 24 Hour Vital Signs Date Time Temp Pulse Resp B/P (MAP) Pulse Ox O2 Delivery O2 Flow Rate FiO2 08/29/19 08:43 76 150/67 08/29/19 08:00 76 08/29/19 08:00 98.1 76 20 150/57 (88) 97 08/29/19 08:00 Room Air 08/29/19 04:00 98.0 77 16 148/66 (93) 96 08/29/19 04:00 Room Air 08/29/19 03:29 77 08/29/19 01:16 85 08/29/19 00:00 98.4 81 16 156/77 (103) 98 08/29/19 00:00 Room Air 08/28/19 23:30 77 08/28/19 20:00 Room Air 08/28/19 20:00 98.7 78 16 148/63 (91) 97 08/28/19 19:04 88 08/28/19 16:00 Room Air 08/28/19 16:00 99.0 77 18 154/66 (95) 94 08/28/19 16:00 68 08/28/19 12:00 81 08/28/19 12:00 Room Air 08/28/19 12:00 98.4 74 19 162/63 (96) 98 Intake and Output 08/28/19 08/29/19 19:00 07:00 Intake Total 655 ml 343 ml Output Total 375 ml 450 ml Balance 280 ml -107 ml Intake Oral 600 ml 288 ml IV Total 55 ml 55 ml Output Urine Total 375 ml 450 ml # Bowel Movements 1 1 Laboratory Tests 08/28/19 10:45: White Blood Count 11.5H, Red Blood Count 2.94L, Hemoglobin 7.9L, Hematocrit 25.3L, Mean Corpuscular Volume 86, Mean Corpuscular Hemoglobin 26.9L, Mean Corpuscular Hemoglobin Concent 31.2L, Red Cell Distribution Width 14.6, Platelet Count 152, Mean Platelet Volume 12.6H, Neutrophils (%) (Auto) , Lymphocytes (%) (Auto) , Monocytes (%) (Auto) , Eosinophils (%) (Auto) , Basophils (%) (Auto) , Neutrophils % (Manual) [Pending], Lymphocytes % (Manual) [Pending], Platelet Estimate [Pending], Platelet Morphology [Pending], Sodium Level 145, Potassium Level 3.7, Chloride Level 112H, Carbon Dioxide Level 25, Anion Gap 9, Blood Urea Nitrogen 28H, Creatinine 1.1, Estimat Glomerular Filtration Rate , Glucose Level 295H, Calcium Level 8.4L, Total Bilirubin 0.3, Aspartate Amino Transf (AST/SGOT) 30, Alanine Aminotransferase (ALT/SGPT) 19, Alkaline Phosphatase 162H, Troponin I 0.464H, Total Protein 6.9, Albumin 1.9L, Globulin 5.0, Albumin/Globulin Ratio 0.4L 08/29/19 03:20: White Blood Count 10.7, Red Blood Count 2.74L, Hemoglobin 7.7L, Hematocrit 23.2L , Mean Corpuscular Volume 85, Mean Corpuscular Hemoglobin 27.9, Mean Corpuscular Hemoglobin Concent 33.0, Red Cell Distribution Width 12.7, Platelet Count 136L, Mean Platelet Volume 7.8, Neutrophils (%) (Auto) , Lymphocytes (%) ( Auto) , Monocytes (%) (Auto) , Eosinophils (%) (Auto) , Basophils (%) (Auto) , Sodium Level 145, Potassium Level 3.2L, Chloride Level 113H, Carbon Dioxide Level 24, Anion Gap 8, Blood Urea Nitrogen 21H, Creatinine 0.9, Estimat Glomerular Filtration Rate , Glucose Level 266H, Calcium Level 8.5, Random Vancomycin Level 11.0 Height (Feet): 5 Height (Inches): 3.00 Weight (Pounds): 114 Objective General Appearance: WD/WN, no apparent distress, awake, confused HEENT: normocephalic, atraumatic, PERRL, EOMI, supple, no JVD Neck: non-tender, normal alignment, supple Respiratory/Chest: chest wall non-tender, lungs clear, normal breath sounds, no respiratory distress, no accessory muscle use Cardiovascular/Chest: normal peripheral pulses, normal rate, regular rhythm, no gallop/murmur, no JVD Abdomen: non tender, soft, no organomegaly Extremities: no edema, no cyanosis Neurologic: disoriented Chago Lyons M.D. Aug 29, 2019 10:07
--- NOTE | 2019-08-29 10:56 | Cardiac Electrophysiology PN ---
Assessment/Plan Assessment/Plan 1. Elevated troponin due to renal failure with creatinine 1.7. All troponins are between 0.5 and 0.7. Has no CP and underlying left bundle -branch block. Echo Nl EF and no vegetations. On aspirin and beta-lisbeth, and hold off on the statin in view of rhabdomyolysis. 2. Hypertension. 3. LBBB and sinus dorian in 30s. Now off Lopressor 4. Nonsustained VT. . 5. Heart failure. BNP of more than 24,000. Echocardiogram Nl EF. Could be HFpEF 6. Urinary tract infection, on IV antibiotic. 7. 4/4 Strep Bacteremia with WBC 25K. R/O endocarditis. ERIBERTO pending if remains full code 8. Renal failure. Creatinine of 1.7. 9. Uncontrolled diabetes DW RN Subjective Subjective Remained in SR with LBBB .Had 12 beats of nonsustained VT. No CP. RN at bedside. HR better off lopressor Objective Last 24 Hour Vital Signs Date Time Temp Pulse Resp B/P (MAP) Pulse Ox O2 Delivery O2 Flow Rate FiO2 08/29/19 08:43 76 150/67 08/29/19 08:00 76 08/29/19 08:00 98.1 76 20 150/57 (88) 97 08/29/19 08:00 Room Air 08/29/19 04:00 98.0 77 16 148/66 (93) 96 08/29/19 04:00 Room Air 08/29/19 03:29 77 08/29/19 01:16 85 08/29/19 00:00 98.4 81 16 156/77 (103) 98 08/29/19 00:00 Room Air 08/28/19 23:30 77 08/28/19 20:00 Room Air 08/28/19 20:00 98.7 78 16 148/63 (91) 97 08/28/19 19:04 88 08/28/19 16:00 Room Air 08/28/19 16:00 99.0 77 18 154/66 (95) 94 08/28/19 16:00 68 08/28/19 12:00 81 08/28/19 12:00 Room Air 08/28/19 12:00 98.4 74 19 162/63 (96) 98 Intake and Output 08/28/19 08/29/19 19:00 07:00 Intake Total 655 ml 343 ml Output Total 375 ml 450 ml Balance 280 ml -107 ml Intake Oral 600 ml 288 ml IV Total 55 ml 55 ml Output Urine Total 375 ml 450 ml # Bowel Movements 1 1 Laboratory Tests Test 08/29/19 03:20 White Blood Count 10.7 K/UL (4.8-10.8) Red Blood Count 2.74 M/UL (4.20-5.40) L Hemoglobin 7.7 G/DL (12.0-16.0) L Hematocrit 23.2 % (37.0-47.0) L Mean Corpuscular Volume 85 FL (80-99) Mean Corpuscular Hemoglobin 27.9 PG (27.0-31.0) Mean Corpuscular Hemoglobin Concent 33.0 G/DL (32.0-36.0) Red Cell Distribution Width 12.7 % (11.6-14.8) Platelet Count 136 K/UL (150-450) L Mean Platelet Volume 7.8 FL (6.5-10.1) Neutrophils (%) (Auto) % (45.0-75.0) Lymphocytes (%) (Auto) % (20.0-45.0) Monocytes (%) (Auto) % (1.0-10.0) Eosinophils (%) (Auto) % (0.0-3.0) Basophils (%) (Auto) % (0.0-2.0) Sodium Level 145 MMOL/L (136-145) Potassium Level 3.2 MMOL/L (3.5-5.1) L Chloride Level 113 MMOL/L (98-107) H Carbon Dioxide Level 24 MMOL/L (21-32) Anion Gap 8 mmol/L (5-15) Blood Urea Nitrogen 21 mg/dL (7-18) H Creatinine 0.9 MG/DL (0.55-1.30) Estimat Glomerular Filtration Rate mL/min (>60) Glucose Level 266 MG/DL (74-106) H Calcium Level 8.5 MG/DL (8.5-10.1) Random Vancomycin Level 11.0 ug/mL Objective HEAD AND NECK: No JVD LUNGS: Clear. CARDIOVASCULAR: Regular S1 and S2 with no gallop or murmur. ABDOMEN: Soft. EXTREMITIES: No pitting edema. Luis Purdy MD Aug 29, 2019 10:56
[2019-08-29 12:00] VITALS: BP 138/59
--- NOTE | 2019-08-29 13:46 | NUR ---
NURSE NOTES: pt confused, no co pain, refuse lunch, bed bath given, repositioned, vital signs stable, continue monitoring.
--- NOTE | 2019-08-29 15:03 | Surgery Progress Note ---
Surgery Progress Note Subjective Additional Comments no acute events labs reviewed exam stabl e Objective Last 24 Hour Vital Signs Date Time Temp Pulse Resp B/P (MAP) Pulse Ox O2 Delivery O2 Flow Rate FiO2 08/29/19 12:01 Room Air 08/29/19 12:00 79 08/29/19 12:00 97.9 79 18 138/59 (85) 96 08/29/19 08:43 76 150/67 08/29/19 08:00 76 08/29/19 08:00 98.1 76 20 150/57 (88) 97 08/29/19 08:00 Room Air 08/29/19 04:00 98.0 77 16 148/66 (93) 96 08/29/19 04:00 Room Air 08/29/19 03:29 77 08/29/19 01:16 85 08/29/19 00:00 98.4 81 16 156/77 (103) 98 08/29/19 00:00 Room Air 08/28/19 23:30 77 08/28/19 20:00 Room Air 08/28/19 20:00 98.7 78 16 148/63 (91) 97 08/28/19 19:04 88 08/28/19 16:00 Room Air 08/28/19 16:00 99.0 77 18 154/66 (95) 94 08/28/19 16:00 68 I&O Intake and Output 08/28/19 08/29/19 18:59 06:59 Intake Total 655 ml 343 ml Output Total 375 ml 450 ml Balance 280 ml -107 ml Intake Oral 600 ml 288 ml IV Total 55 ml 55 ml Output Urine Total 375 ml 450 ml # Bowel Movements 1 1 Dressing: other Wound: other Drains: other Cardiovascular: RSR Respiratory: decreased breath sounds Abdomen: soft, present bowel sounds Extremities: no cyanosis Laboratory Tests Test 08/29/19 03:20 White Blood Count 10.7 K/UL (4.8-10.8) Red Blood Count 2.74 M/UL (4.20-5.40) L Hemoglobin 7.7 G/DL (12.0-16.0) L Hematocrit 23.2 % (37.0-47.0) L Mean Corpuscular Volume 85 FL (80-99) Mean Corpuscular Hemoglobin 27.9 PG (27.0-31.0) Mean Corpuscular Hemoglobin Concent 33.0 G/DL (32.0-36.0) Red Cell Distribution Width 12.7 % (11.6-14.8) Platelet Count 136 K/UL (150-450) L Mean Platelet Volume 7.8 FL (6.5-10.1) Neutrophils (%) (Auto) % (45.0-75.0) Lymphocytes (%) (Auto) % (20.0-45.0) Monocytes (%) (Auto) % (1.0-10.0) Eosinophils (%) (Auto) % (0.0-3.0) Basophils (%) (Auto) % (0.0-2.0) Sodium Level 145 MMOL/L (136-145) Potassium Level 3.2 MMOL/L (3.5-5.1) L Chloride Level 113 MMOL/L (98-107) H Carbon Dioxide Level 24 MMOL/L (21-32) Anion Gap 8 mmol/L (5-15) Blood Urea Nitrogen 21 mg/dL (7-18) H Creatinine 0.9 MG/DL (0.55-1.30) Estimat Glomerular Filtration Rate mL/min (>60) Glucose Level 266 MG/DL (74-106) H Calcium Level 8.5 MG/DL (8.5-10.1) Random Vancomycin Level 11.0 ug/mL Plan Problems: (1) Decubitus skin ulcer Assessment & Plan: Pt presented on admission with multiple pressure injuries. DTPI Sacrum (L)10cm x (W)9cm with small slit at sacrococcygeal area(L)0.5cm- small amt sanguineous exudate noted.Base of wound is maroon and indurated. Two Unstageable pressure injuries in close proximity noted to L hip. Base of each wound is necrotic and soft with marginal erythema.(L)2cm x (W)3.7cm NO erythema or odor noted. Historical Scar noted at L hip in close proximity to wound. L heel boggy with non-blanching erythema.(L)4cm x (W)4.5cm R heel boggy with non-blanching erythema.(L)5cm x (W)6cm. Pt noted to have several small black droppings in bed. Upon further inspection. Single small brownish bug observed crawling in bed. At posterior aspect of neck pt noted to have macular red rash.Red rash also noted to L axilla .Complete bed Bath provided.And all bed linen removed and mattress sanitized. EVS was notified by Primary nurse. Tx.plan: Apply Moisture Barrier Paste to Sacrum. Cover with Optifoam drsg. Change every 3 days and prn. Cleanse L hip with Saline. Apply Therahoney. Apply Cavilon Skin Barrier periwound.Cover with Optifoam drsg. Change every 3 days and prn. Apply Cavilon Skin Barrier to both heels. Cover each heel with Optifoam drsg. Change every 7 days and prn. APM/YURIY mattress overlay. Reposition at least every 2hours or as tolerated. Off-load heels with pillow. (2) Sepsis Assessment & Plan: Leukocytosis, abnormal labs, tachycardic, per report fevers UA identified urosepsis bacteremic On antibiotics as per infectious disease Trend labs Okay for diet A.m. labs Wounds unlikely etiology of sepsis as they are chronic and do not look actively infected We will follow with recommendations thank you for let me participate in patient' s care Darrius Miller Aug 29, 2019 15:03
[2019-08-29 16:00] VITALS: BP 145/61
--- NOTE | 2019-08-29 19:36 | NUR ---
HAND-OFF: Report given to FLORINA QUIROS, no distress noted, pt sleeping.
[2019-08-29 20:00] VITALS: BP 141/71
--- NOTE | 2019-08-29 21:00 | NUR ---
NURSE NOTES: Pt BG 220, but she did not eat any dinner this evening. Pt has no dextrose running, insulin held r/t pt not eating anything this evening. Charge nurse Ochoa aware and in agreement. Will continue to monitor closely.
[2019-08-30] VITALS: BP 139/58
[2019-08-30] MEDS: Meropenem 500mg/NS 55ml IVPB SCH ×4 (03:09→15:28)
[2019-08-30 04:00] VITALS: BP 159/73
[2019-08-30] MEDS: NovoLOG Insulin Flexpen SUBQ SCH ×4 (06:50→21:57)
--- NOTE | 2019-08-30 07:30 | NUR ---
NURSE NOTES: Received report from ISHAAN Kay. Observed patient in bed, awake, [place] speaking, restless. On room air, no respiratory distress noted. Right FA IV intact and patent. No s/s pain/discomfort at this time. Safety precautions in place, bed locked, alarmed, and in lowest position, side rails up x3, and call light left within reach. Will continue to monitor.
[2019-08-30 08:00] VITALS: BP 158/66
[2019-08-30] MEDS: Aspirin Baby 81mg ORAL SCH (08:36)
[2019-08-30] MEDS: Levodopa/Carbidopa 10/100 tab ORAL SCH ×3 (08:36→17:10)
[2019-08-30] MEDS: Vancomycin 750 MG in NS 275 ML IVPB SCH (08:36)
--- NOTE | 2019-08-30 09:22 | Diagnostic Imaging Report ---
Indication: Leg pain Technique: Grayscale and duplex images of the bilateral lower extremity veins Comparison: none Findings: Bilaterally, grayscale and duplex images demonstrate no evidence of intraluminal thrombus. Normal phasic Doppler waveforms, demonstrating normal augmentation response and no evidence of valvular insufficiency. Normal compressibility Impression: Negative for evidence of lower extremity deep venous thrombosis bilaterally
--- NOTE | 2019-08-30 10:16 | Surgery Progress Note ---
Surgery Progress Note Subjective Additional Comments no acute events labs reviewed exam stable Objective Last 24 Hour Vital Signs Date Time Temp Pulse Resp B/P (MAP) Pulse Ox O2 Delivery O2 Flow Rate FiO2 08/30/19 08:37 76 158/66 08/30/19 08:00 Room Air 08/30/19 08:00 98.6 75 18 158/66 (96) 97 08/30/19 04:00 Room Air 08/30/19 04:00 98.0 85 18 159/73 (101) 98 08/30/19 04:00 83 08/30/19 00:00 Room Air 08/30/19 00:00 97.6 77 18 139/58 (85) 96 08/29/19 20:00 98.0 80 18 141/71 (94) 96 08/29/19 20:00 73 08/29/19 20:00 Room Air 08/29/19 16:00 97.4 70 20 145/61 (89) 96 08/29/19 16:00 Room Air 08/29/19 16:00 76 08/29/19 12:01 Room Air 08/29/19 12:00 79 08/29/19 12:00 97.9 79 18 138/59 (85) 96 I&O Intake and Output 08/29/19 08/30/19 18:59 06:59 Intake Total 120 ml 405 ml Output Total 550 ml 400 ml Balance -430 ml 5 ml Intake Oral 120 ml 350 ml IV Total 55 ml Output Urine Total 550 ml 400 ml # Bowel Movements 1 2 Dressing: other Wound: other Drains: other Cardiovascular: RSR Respiratory: decreased breath sounds Abdomen: soft, present bowel sounds Extremities: no cyanosis Plan Problems: (1) Decubitus skin ulcer Assessment & Plan: Pt presented on admission with multiple pressure injuries. DTPI Sacrum (L)10cm x (W)9cm with small slit at sacrococcygeal area(L)0.5cm- small amt sanguineous exudate noted.Base of wound is maroon and indurated. Two Unstageable pressure injuries in close proximity noted to L hip. Base of each wound is necrotic and soft with marginal erythema.(L)2cm x (W)3.7cm NO erythema or odor noted. Historical Scar noted at L hip in close proximity to wound. L heel boggy with non-blanching erythema.(L)4cm x (W)4.5cm R heel boggy with non-blanching erythema.(L)5cm x (W)6cm. Pt noted to have several small black droppings in bed. Upon further inspection. Single small brownish bug observed crawling in bed. At posterior aspect of neck pt noted to have macular red rash.Red rash also noted to L axilla .Complete bed Bath provided.And all bed linen removed and mattress sanitized. EVS was notified by Primary nurse. Tx.plan: Apply Moisture Barrier Paste to Sacrum. Cover with Optifoam drsg. Change every 3 days and prn. Cleanse L hip with Saline. Apply Therahoney. Apply Cavilon Skin Barrier periwound.Cover with Optifoam drsg. Change every 3 days and prn. Apply Cavilon Skin Barrier to both heels. Cover each heel with Optifoam drsg. Change every 7 days and prn. APM/YURIY mattress overlay. Reposition at least every 2hours or as tolerated. Off-load heels with pillow. (2) Sepsis Assessment & Plan: Leukocytosis, abnormal labs, tachycardic, per report fevers UA identified urosepsis bacteremic On antibiotics as per infectious disease Trend labs Okay for diet A.m. labs Wounds unlikely etiology of sepsis as they are chronic and do not look actively infected We will follow with recommendations thank you for let me participate in patient' s care Darrius Miller Aug 30, 2019 10:16
--- NOTE | 2019-08-30 10:28 | NUR ---
RD ASSESSMENT & RECOMMENDATIONS SEE CARE ACTIVITY FOR COMPLETE ASSESSMENT DAILY ESTIMATED NEEDS: Needs based on Wounds, DM 49kg 30-35 kcals/kg 5784-6538 total kcals 1.25-2 g protein/kg 61-98 g total protein 25-30ml/kcal mL/kg 1287-5913 total fluid mLs NUTRITION DIAGNOSIS: Increased kcal and pro needs r/t wound healing as evidenced by pt w/ multiple areas of skin breakdown including unstageable L hip wounds x2, refer to WC eval for full assessment. CURRENT DIET: Regular liq puree HTL + glucerna PO DIET RECOMMENDATIONS: Continue liberalized Regular diet/ texture per [employer] ENTERAL NUTRITION RECOMMENDATIONS: * Consult RD for TF recs w/ continued poor po intake * ADDITIONAL RECOMMENDATIONS: 1) Glucerna TID; w/ poor po intake of meals rec Ensure Enlive TID 2) Increase hypoglycemics 3) Wound care: if tolerated ANTONIA Fruit Punch BID + Vit C 250mg BID + MVI w/ min qDaily 4) Calibrated bed scale wts daily 5) REC NON ORAL FEEDS W/ CONTINUED POOR PO INTAKE 6) Replete lytes as needed (Low K 3.2)
--- NOTE | 2019-08-30 11:31 | General Progress Note ---
Assessment/Plan Problem List: (1) Bacteremia due to group B Streptococcus ICD Codes: R78.81 - Bacteremia SNOMED: 743108849447 (2) Severe sepsis ICD Codes: A41.9 - Sepsis, unspecified organism; R65.20 - Severe sepsis without septic shock SNOMED: 67600447 (3) Toxic metabolic encephalopathy ICD Codes: G92 - Toxic encephalopathy SNOMED: 578369695 (4) Diabetes mellitus with hyperglycemia ICD Codes: E11.65 - Type 2 diabetes mellitus with hyperglycemia SNOMED: 03071546, 46390920 (5) OWEN (acute kidney injury) ICD Codes: N17.9 - Acute kidney failure, unspecified SNOMED: 2220167, 26502769 (6) NSTEMI (non-ST elevated myocardial infarction) ICD Codes: I21.4 - Non-ST elevation (NSTEMI) myocardial infarction SNOMED: 75051701, 484227628 (7) Urinary tract infection due to ESBL Klebsiella ICD Codes: N39.0 - Urinary tract infection, site not specified; B96.89 - Other specified bacterial agents as the cause of diseases classified elsewhere SNOMED: 761258255, 709296198296896 (8) Suspected acute on chronic CHF (9) Decubitus skin ulcer ICD Codes: L89.90 - Pressure ulcer of unspecified site, unspecified stage SNOMED: 945129843 (10) ATN (acute tubular necrosis) ICD Codes: N17.0 - Acute kidney failure with tubular necrosis SNOMED: 36130462 (11) Parkinson disease ICD Codes: G20 - Parkinson disease SNOMED: 63044952 (12) Bedbug bite ICD Codes: W57.XXXA - Bitten or stung by nonvenomous insect and other nonvenomous arthropods, initial encounter SNOMED: 083858096 (13) Hypernatremia ICD Codes: E87.0 - Hyperosmolality and hypernatremia SNOMED: 801743862 (14) Hypokalemia ICD Codes: E87.6 - Hypokalemia SNOMED: 21364054 Status: stable Assessment/Plan: 84-year-old lady from [facility] with history of hypertension, uncontrolled diabetes, and Parkinson disease, who was brought to the emergency room by family member for altered mental status and weakness. Found to have severe sepsis due to ESBL UTI, groub b strep bacteremia, OWEN vs OWEN on CKD and NSTEMI. Heart failure. BNP of more than 24,000. Echocardiogram Nl EF. ?HFpEF. developed hypernatremia. Hypokalemia, poor po intake Plan: - PCU level of care - cardiology consult appreciated - heparin gtt per acs protocol, DC per cards, no chest pain, stable troponin. Continue ASA, beta lisbeth (Lopressor 25), hold off on statin due to rhabdomyolysis. Decrease Lopressor to 12.5 mg bid due to low heart rate, eventually had to stop due to bradycardia on 08/29 - trend tn/ekg - TTE, normal EF, no vegetations, in view of strep bacteremia in 11/08 bottles, needs a ERIBERTO to r/o endocarditis, I am told on hold due to bradycardia. surveilence cultures negative - start IV 1/2NS with kcl at 75 ml/hr -monitor serum sodium, replace k - s/p lasix 20 IV x on admit - ID consult appeciated - c/w empiric vanco/zosyn, switched to meropenem based on sensitivities - follow urine and blood cx's. 11/08 strep bacteremia with wbc 25k--> now 14 , cbc pending today, repeat blood cultures no growth to date - c/w PD regimen - A1c 9-->insulin sliding scale ac/hs, change to resistant scale, poor po intake - supportive care - delirium precautions -d/w ID -discuss goal of care with family, grand daughter [phone], unable to reach Time of this note may not reflect the time of the clinical encounter. Subjective Date patient seen: Aug 30, 2019 ROS Limited/Unobtainable: No Constitutional: Denies: no symptoms, chills, diaphoresis, fever, malaise, weakness, other HEENT: Denies: no symptoms, eye pain, blurred vision, tearing, double vision, ear pain, ear discharge, nose pain, nose congestion, throat pain, throat swelling, mouth pain, mouth swelling, other Cardiovascular: Denies: no symptoms, chest pain, edema, irregular heart rate, lightheadedness, palpitations, syncope, other Respiratory: Denies: no symptoms, cough, orthopnea, shortness of breath, SOB with excertion, SOB at rest, sputum, stridor, wheezing, other Gastrointestinal/Abdominal: Denies: no symptoms, abdomen distended, abdominal pain, black stools, tarry stools, blood in stool, constipated, diarrhea, difficulty swallowing, nausea, poor appetite, poor fluid intake, rectal bleeding , vomiting, other Genitourinary: Denies: no symptoms, burning, discharge, frequency, flank pain, hematuria, incontinence, pain, urgency, other Neurologic/Psychiatric: Denies: no symptoms, anxiety, depressed, emotional problems, headache, numbness, paresthesia, pre-existing deficit, seizure, tingling, tremors, weakness, other Hematologic/Lymphatic: Denies: no symptoms, anemia, easy bleeding, easy bruising, other Allergies: Coded Allergies: No Known Allergies (Unverified , 10/23/13) Subjective poor historian. following up for severe sepsis, group b strep bacteremia, ESBL UTI, OWEN, NSTEMI. Denies any chest pain or sob, alert and awake, follow simple commands. tele reviewed. SR at 30's , LBBB, last night episodes of vtach. cbc pending. renal function trending down. Per RN bedbugs found in her bed Objective Last 24 Hour Vital Signs Date Time Temp Pulse Resp B/P (MAP) Pulse Ox O2 Delivery O2 Flow Rate FiO2 08/30/19 09:52 85 08/30/19 08:37 76 158/66 08/30/19 08:00 Room Air 08/30/19 08:00 98.6 75 18 158/66 (96) 97 08/30/19 04:00 Room Air 08/30/19 04:00 98.0 85 18 159/73 (101) 98 08/30/19 04:00 83 08/30/19 00:00 Room Air 08/30/19 00:00 97.6 77 18 139/58 (85) 96 08/29/19 20:00 98.0 80 18 141/71 (94) 96 08/29/19 20:00 73 08/29/19 20:00 Room Air 08/29/19 16:00 97.4 70 20 145/61 (89) 96 08/29/19 16:00 Room Air 08/29/19 16:00 76 08/29/19 12:01 Room Air 08/29/19 12:00 79 08/29/19 12:00 97.9 79 18 138/59 (85) 96 Intake and Output 1/23/20 1/24/20 18:59 06:59 Intake Total 120 ml 405 ml Output Total 550 ml 400 ml Balance -430 ml 5 ml Intake Oral 120 ml 350 ml IV Total 55 ml Output Urine Total 550 ml 400 ml # Bowel Movements 1 2 Height (Feet): 5 Height (Inches): 3.00 Weight (Pounds): 116 Objective General Appearance: WD/WN, no apparent distress, awake, confused HEENT: normocephalic, atraumatic, PERRL, EOMI, supple, no JVD Neck: non-tender, normal alignment, supple Respiratory/Chest: chest wall non-tender, lungs clear, normal breath sounds, no respiratory distress, no accessory muscle use Cardiovascular/Chest: normal peripheral pulses, normal rate, regular rhythm, no gallop/murmur, no JVD Abdomen: non tender, soft, no organomegaly Extremities: no edema, no cyanosis Neurologic: disoriented Chago Lyons M.D. Aug 30, 2019 11:31
--- NOTE | 2019-08-30 11:39 | Cardiac Electrophysiology PN ---
Assessment/Plan Assessment/Plan 1. Elevated troponin due to renal failure with creatinine 1.7. All troponins are between 0.5 and 0.7. Has no CP and underlying left bundle -branch block. Echo Nl EF and no vegetations. On aspirin and beta-lisbeth, and hold off on the statin in view of rhabdomyolysis. 2. Hypertension. 3. LBBB and sinus dorian in 30s. Now off Lopressor 4. Nonsustained VT. . 5. Heart failure. BNP of more than 24,000. Echocardiogram Nl EF. Could be HFpEF 6. Urinary tract infection, on IV antibiotic. 7. 4/4 Strep Bacteremia with WBC 25K. R/O endocarditis. ERIBERTO pending 8. Renal failure. Creatinine of 1.7. 9. Uncontrolled diabetes DW RN Subjective Subjective Remained in SR with LBBB. Had nonsustained VT 2 days ago. RN at bedside. HR better off Lopressor Objective Last 24 Hour Vital Signs Date Time Temp Pulse Resp B/P (MAP) Pulse Ox O2 Delivery O2 Flow Rate FiO2 08/30/19 09:52 85 08/30/19 08:37 76 158/66 08/30/19 08:00 Room Air 08/30/19 08:00 98.6 75 18 158/66 (96) 97 08/30/19 04:00 Room Air 08/30/19 04:00 98.0 85 18 159/73 (101) 98 08/30/19 04:00 83 08/30/19 00:00 Room Air 08/30/19 00:00 97.6 77 18 139/58 (85) 96 08/29/19 20:00 98.0 80 18 141/71 (94) 96 08/29/19 20:00 73 08/29/19 20:00 Room Air 08/29/19 16:00 97.4 70 20 145/61 (89) 96 08/29/19 16:00 Room Air 08/29/19 16:00 76 08/29/19 12:01 Room Air 08/29/19 12:00 79 08/29/19 12:00 97.9 79 18 138/59 (85) 96 Intake and Output 08/29/19 08/30/19 18:59 06:59 Intake Total 120 ml 405 ml Output Total 550 ml 400 ml Balance -430 ml 5 ml Intake Oral 120 ml 350 ml IV Total 55 ml Output Urine Total 550 ml 400 ml # Bowel Movements 1 2 Objective HEAD AND NECK: No JVD LUNGS: Clear. CARDIOVASCULAR: Regular S1 and S2 with no gallop or murmur. ABDOMEN: Soft. EXTREMITIES: No pitting edema. Luis Purdy MD Aug 30, 2019 11:39
[2019-08-30 12:00] VITALS: BP 147/58
--- NOTE | 2019-08-30 12:30 | NUR ---
NURSE NOTES: Spoke with Jeison from cardiology department regarding ERIBERTO order for patient, states there is no available doctor to do the procedure today. Charge nurse notified and made aware.
[2019-08-30 12:41] LABS: BASOPHILS % (AUTO) 0.9 % (0.0-2.0); EOSINOPHILS % (AUTO) 0.6 % (0.0-3.0); HEMATOCRIT 28.1 % (37.0-47.0); HEMOGLOBIN 9.3 G/DL (12.0-16.0); MEAN CORPUSCULAR VOLUME 82 FL (80-99); MONOCYTES % (AUTO) 5.2 % (1.0-10.0); NEUTROPHILS % (AUTO) 75.3 % (45.0-75.0); PLATELET COUNT 182 K/UL (150-450); RED CELL DISTRIBUTION WIDTH 14.5 % (11.6-14.8); WHITE BLOOD COUNT 12.7 K/UL (4.8-10.8)
[2019-08-30 12:53] LABS: ANION GAP 12 mmol/L (5-15); BLOOD UREA NITROGEN 14 mg/dL (7-18); CALCIUM 8.7 MG/DL (8.5-10.1); CARBON DIOXIDE 24 MMOL/L (21-32); CHLORIDE 111 MMOL/L (98-107); CREATININE 0.9 MG/DL (0.55-1.30); POTASSIUM 3.3 MMOL/L (3.5-5.1); SODIUM 147 MMOL/L (136-145)
--- NOTE | 2019-08-30 13:56 | NUR ---
NURSE NOTES: Contacted Dr Butler regarding lab results, spoke with Herminio from answering service; awaiting for call back/orders.
--- NOTE | 2019-08-30 15:08 | NUR ---
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 98.0 HR 85 RR 18 B/P 159/73 RA 98% WBC 12.7 NA 147 K 3.3 GLU 218 IS: VANCO IV MEROPENEM IV ASA STEP DOWN STATUS
[2019-08-30 16:00] VITALS: BP 138/61
--- NOTE | 2019-08-30 16:29 | NUR ---
NURSE NOTES: Called and left a message to Dr Butler, attemp #2, awaiting for call back/orders from covering physician.
--- NOTE | 2019-08-30 17:00 | NUR ---
NURSE NOTES: Provided bed bath, linen change, and pericare; patient tolerated well. Patient was repositioned. Bed was left locked, alarmed, and in lowest position, side rails up x3, and call light left within reach. Will continue to monitor patient.
--- NOTE | 2019-08-30 19:10 | NUR ---
NURSE NOTES: Received patient from Filomena Castaneda RN. patient is observed in bed, appears to be sleeping, arousable to voice, no s/sx of pain noted at this time. patient is on room air, tolerating well; no s/sx of respiratory distress noted at this time. skin alterations noted. RFA 22g IV site is patent and intact, asymptomatic. bed in lowest position and locked, siderails up X3, call light within reach. will continue to monitor.
--- NOTE | 2019-08-30 19:15 | NUR ---
HAND-OFF: Report given to ISHAAN Reyes. Endorsed plan of care. Patient in stable condition.
[2019-08-30 20:00] VITALS: BP 141/66
--- NOTE | 2019-08-30 21:08 | Infectious Diseases Prog Note ---
Assessment/Plan Assessment/Plan ASSESSMENT AND PLAN: 1. streptococcus agalactiae - group b bacteremia, ? endocarditis, esbl e.coli uti, sirs, leukocytosis - meropenem and vancomycin - day # 7 antibiotics - d/w cardiology - ERIBERTO planned, pending per cardiology notes - f/u blood cultures negative, monitor labs 2. Acute kidney injury with elevated creatinine. 3. History of diabetes. 4. weakness 5. Blood pressure treatment per primary care team and diabetes treatment per primary care team and consultants. 6. Parkinson's. 7. Dementia. 8. The patient does have also elevated troponin. Cardiology follow-up. 9. MAR was noted. 10. Case was discussed with RN. 11. No known allergies. 12. Social history is negative. 13. Family history is noncontributory. 14. Continue treatment per primary consultants. 15. Orders were noted and entered. Subjective Constitutional: Denies: fever HEENT: Denies: congestion Respiratory: Denies: shortness of breath Cardiovascular: Denies: chest pain Gastrointestinal/Abdominal: Denies: nausea, vomiting, diarrhea Genitourinary: Reports: other - + arnold Neurologic: Denies: headache Psychiatric: Denies: depression Skin: Denies: rash Hematologic: Denies: bleeding Musculoskeletal: Denies: pain Allergies: Coded Allergies: No Known Allergies (Unverified , 10/23/13) Objective Vital Signs Last 24 Hour Vital Signs Date Time Temp Pulse Resp B/P (MAP) Pulse Ox O2 Delivery O2 Flow Rate FiO2 08/30/19 20:00 98.2 80 16 141/66 (91) 98 08/30/19 16:00 Room Air 08/30/19 16:00 98.0 87 18 138/61 (86) 98 08/30/19 15:30 82 08/30/19 12:23 83 08/30/19 12:00 Room Air 08/30/19 12:00 98.2 75 18 147/58 (87) 97 08/30/19 09:52 85 08/30/19 08:37 76 158/66 08/30/19 08:00 Room Air 08/30/19 08:00 98.6 75 18 158/66 (96) 97 08/30/19 04:00 Room Air 08/30/19 04:00 98.0 85 18 159/73 (101) 98 08/30/19 04:00 83 08/30/19 00:00 Room Air 08/30/19 00:00 97.6 77 18 139/58 (85) 96 Height (Feet): 5 Height (Inches): 3.00 Weight (Pounds): 116 General Appearance: no acute distress HEENT: normocephalic, atraumatic, anicteric, mucous membranes moist Respiratory/Chest: lungs clear, normal breath sounds, no respiratory distress, no accessory muscle use Cardiovascular: normal rate, regular rhythm, no gallop/murmur, no JVD Abdomen: normal bowel sounds, soft, non tender, no organomegaly, non distended Genitourinary: other - + arnold - urine slt cloudy Extremities: no cyanosis Skin: no rash Neurologic/Psychiatric: detacher II-XII grossly normal, 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 Pleural space: Unremarkable. No pneumothorax. Heart: Borderline cardiomegaly, potentially exaggerated by portable technique. Mediastinum: Calcified aorta. Bones/joints: Osteopenia. Degenerative changes. IMPRESSION: Mild vascular congestion Microbiology Date/Time Source Procedure Growth Status 08/26/19 03:50 Blood Blood Culture - Preliminary NO GROWTH AFTER 4 DAYS Resulted 08/24/19 14:25 Urine,Clean Catch Urine Culture - Final Escherichia Coli - Esbl Complete Laboratory Tests Test 08/30/19 12:20 White Blood Count 12.7 K/UL (4.8-10.8) H Red Blood Count 3.40 M/UL (4.20-5.40) L Hemoglobin 9.3 G/DL (12.0-16.0) L Hematocrit 28.1 % (37.0-47.0) L Mean Corpuscular Volume 82 FL (80-99) Mean Corpuscular Hemoglobin 27.4 PG (27.0-31.0) Mean Corpuscular Hemoglobin Concent 33.2 G/DL (32.0-36.0) Red Cell Distribution Width 14.5 % (11.6-14.8) Platelet Count 182 K/UL (150-450) Mean Platelet Volume 6.6 FL (6.5-10.1) Neutrophils (%) (Auto) 75.3 % (45.0-75.0) H Lymphocytes (%) (Auto) 18.0 % (20.0-45.0) L Monocytes (%) (Auto) 5.2 % (1.0-10.0) Eosinophils (%) (Auto) 0.6 % (0.0-3.0) Basophils (%) (Auto) 0.9 % (0.0-2.0) Sodium Level 147 MMOL/L (136-145) H Potassium Level 3.3 MMOL/L (3.5-5.1) L Chloride Level 111 MMOL/L (98-107) H Carbon Dioxide Level 24 MMOL/L (21-32) Anion Gap 12 mmol/L (5-15) Blood Urea Nitrogen 14 mg/dL (7-18) Creatinine 0.9 MG/DL (0.55-1.30) Estimat Glomerular Filtration Rate mL/min (>60) Glucose Level 218 MG/DL (74-106) H Calcium Level 8.7 MG/DL (8.5-10.1) Current Medications Medications (Trade) Dose Ordered Sig/Krystin Route PRN Reason Start Time Stop Time Status Last Admin Dose Admin Acetaminophen (Tylenol) 650 mg Q4H PRN ORAL Mild Pain/Temp > 100.5 08/25/19 12:45 09/24/19 12:44 Amlodipine Besylate (Norvasc) 5 mg DAILY ORAL 08/29/19 09:00 09/28/19 08:59 08/30/19 08:37 Aspirin (ASA) 81 mg DAILY ORAL 08/25/19 09:00 09/24/19 08:59 08/30/19 08:36 Carbidopa/Levodopa (Sinemet 10/100) 1 tab THREE TIMES A DAY ORAL 08/25/19 09:00 09/24/19 08:59 08/30/19 17:10 Dextrose (Dextrose 50%) 25 ml Q30M PRN IV Hypoglycemia 08/24/19 19:15 09/23/19 19:14 Dextrose (Dextrose 50%) 50 ml Q30M PRN IV Hypoglycemia 08/24/19 19:15 09/23/19 19:14 Insulin Aspart (NovoLOG) BEFORE MEALS AND HS SUBQ 08/30/19 21:00 09/29/19 20:59 Meropenem 500 mg/ Sodium Chloride 55 ml @ 110 mls/hr Q12HR@0400,1600 IVPB 08/26/19 16:00 09/04/19 23:59 08/30/19 15:28 Sodium 1,000 ml @ 75 mls/hr [id number] IV 08/30/19 22:00 09/29/19 21:59 Vancomycin HCl (Vanco rx to dose) 1 ea DAILY PRN MISC Per rx protocol 08/25/19 07:30 09/24/19 07:29 Vancomycin HCl 750 mg/Sodium Chloride 275 ml @ 183.333 mls/hr Q24H IVPB 08/30/19 09:00 09/04/19 08:59 08/30/19 08:36 Gerardo Toledo MD Aug 30, 2019 21:08
[2019-08-30] MEDS: 1/2NS w/KCl 20mEq 1000ml 1,000 ML IV SCH (21:49)
[2019-08-31] VITALS (7 sets, daily range): BP systolic 119–154; BP diastolic 51–68
[2019-08-31] MEDS: Meropenem 500mg/NS 55ml IVPB SCH ×4 (03:24→18:01)
[2019-08-31] MEDS: NovoLOG Insulin Flexpen SUBQ SCH ×4 (06:31→21:09)
[2019-08-31 06:50] LABS: BASOPHILS % (AUTO) 0.6 % (0.0-2.0); EOSINOPHILS % (AUTO) 0.9 % (0.0-3.0); HEMATOCRIT 27.1 % (37.0-47.0); HEMOGLOBIN 8.9 G/DL (12.0-16.0); LYMPHOCYTES % (AUTO) 16.7 % (20.0-45.0); MEAN CORPUSCULAR VOLUME 84 FL (80-99); MONOCYTES % (AUTO) 9.6 % (1.0-10.0); NEUTROPHILS % (AUTO) 72.2 % (45.0-75.0); PLATELET COUNT 179 K/UL (150-450); RED BLOOD COUNT 3.22 M/UL (4.20-5.40); RED CELL DISTRIBUTION WIDTH 12.9 % (11.6-14.8); WHITE BLOOD COUNT 12.4 K/UL (4.8-10.8)
[2019-08-31 06:55] LABS: ANION GAP 12 mmol/L (5-15); BLOOD UREA NITROGEN 10 mg/dL (7-18); CALCIUM 8.3 MG/DL (8.5-10.1); CARBON DIOXIDE 25 MMOL/L (21-32); CHLORIDE 109 MMOL/L (98-107); CREATININE 0.9 MG/DL (0.55-1.30); POTASSIUM 3.5 MMOL/L (3.5-5.1); SODIUM 146 MMOL/L (136-145)
--- NOTE | 2019-08-31 07:25 | NUR ---
NURSE NOTES: Received report from Dominique Colon RN. Patient awake in bed, responds to name but disoriented, unable to make needs known. On room air, respirations even and unlabored. Buckner catheter patent and draining well. Right forearm 22g IV site infusing 1/2NS with 20 meq KCl @ 75 cc/hr, asymptomatic. Bed locked in lowest position with side rails up x 3. All needs attended to. Call light within reach. Will continue to monitor.
--- NOTE | 2019-08-31 07:43 | NUR ---
HAND-OFF: Report given to ISHAAN Barr. patient is in stable condition.
[2019-08-31] MEDS: Levodopa/Carbidopa 10/100 tab ORAL SCH ×3 (09:38→18:01)
[2019-08-31] MEDS: Aspirin Baby 81mg ORAL SCH (09:38)
[2019-08-31] MEDS: Vancomycin 750 MG in NS 275 ML IVPB SCH (09:38)
--- NOTE | 2019-08-31 11:30 | Surgery Progress Note ---
Surgery Progress Note Subjective Additional Comments leukocytosis stable anemia gluc improved exam stable Objective Last 24 Hour Vital Signs Date Time Temp Pulse Resp B/P (MAP) Pulse Ox O2 Delivery O2 Flow Rate FiO2 08/31/19 09:38 79 139/58 08/31/19 08:00 Room Air 08/31/19 08:00 97.0 79 20 139/58 (85) 97 08/31/19 07:44 75 08/31/19 04:41 80 08/31/19 04:00 Room Air 08/31/19 04:00 97.5 87 16 154/68 (96) 95 08/31/19 00:00 98.4 66 16 120/51 (74) 95 08/31/19 00:00 Room Air 08/31/19 00:00 60 08/30/19 20:00 Room Air 08/30/19 20:00 73 08/30/19 20:00 98.2 80 16 141/66 (91) 98 08/30/19 16:00 Room Air 08/30/19 16:00 98.0 87 18 138/61 (86) 98 08/30/19 15:30 82 08/30/19 12:23 83 08/30/19 12:00 Room Air 08/30/19 12:00 98.2 75 18 147/58 (87) 97 I&O Intake and Output 08/30/19 08/31/19 19:00 07:00 Intake Total 675.000 ml 698.75 ml Output Total 600 ml 400 ml Balance 75.000 ml 298.75 ml Intake Oral 400 ml 30 ml IV Total 275.000 ml 668.75 ml Output Urine Total 600 ml 400 ml # Bowel Movements 2 2 Dressing: other Wound: other Drains: other Cardiovascular: RSR Respiratory: decreased breath sounds Abdomen: soft, present bowel sounds Extremities: no cyanosis Laboratory Tests Test 08/30/19 12:20 08/31/19 05:15 White Blood Count 12.7 K/UL (4.8-10.8) H 12.4 K/UL (4.8-10.8) H Red Blood Count 3.40 M/UL (4.20-5.40) L 3.22 M/UL (4.20-5.40) L Hemoglobin 9.3 G/DL (12.0-16.0) L 8.9 G/DL (12.0-16.0) L Hematocrit 28.1 % (37.0-47.0) L 27.1 % (37.0-47.0) L Mean Corpuscular Volume 82 FL (80-99) 84 FL (80-99) Mean Corpuscular Hemoglobin 27.4 PG (27.0-31.0) 27.5 PG (27.0-31.0) Mean Corpuscular Hemoglobin Concent 33.2 G/DL (32.0-36.0) 32.6 G/DL (32.0-36.0) Red Cell Distribution Width 14.5 % (11.6-14.8) 12.9 % (11.6-14.8) Platelet Count 182 K/UL (150-450) 179 K/UL (150-450) Mean Platelet Volume 6.6 FL (6.5-10.1) 7.7 FL (6.5-10.1) Neutrophils (%) (Auto) 75.3 % (45.0-75.0) H 72.2 % (45.0-75.0) Lymphocytes (%) (Auto) 18.0 % (20.0-45.0) L 16.7 % (20.0-45.0) L Monocytes (%) (Auto) 5.2 % (1.0-10.0) 9.6 % (1.0-10.0) Eosinophils (%) (Auto) 0.6 % (0.0-3.0) 0.9 % (0.0-3.0) Basophils (%) (Auto) 0.9 % (0.0-2.0) 0.6 % (0.0-2.0) Sodium Level 147 MMOL/L (136-145) H 146 MMOL/L (136-145) H Potassium Level 3.3 MMOL/L (3.5-5.1) L 3.5 MMOL/L (3.5-5.1) Chloride Level 111 MMOL/L (98-107) H 109 MMOL/L (98-107) H Carbon Dioxide Level 24 MMOL/L (21-32) 25 MMOL/L (21-32) Anion Gap 12 mmol/L (5-15) 12 mmol/L (5-15) Blood Urea Nitrogen 14 mg/dL (7-18) 10 mg/dL (7-18) Creatinine 0.9 MG/DL (0.55-1.30) 0.9 MG/DL (0.55-1.30) Estimat Glomerular Filtration Rate mL/min (>60) mL/min (>60) Glucose Level 218 MG/DL (74-106) H 158 MG/DL (74-106) H Calcium Level 8.7 MG/DL (8.5-10.1) 8.3 MG/DL (8.5-10.1) L Plan Problems: (1) Decubitus skin ulcer Assessment & Plan: Pt presented on admission with multiple pressure injuries. DTPI Sacrum (L)10cm x (W)9cm with small slit at sacrococcygeal area(L)0.5cm- small amt sanguineous exudate noted.Base of wound is maroon and indurated. Two Unstageable pressure injuries in close proximity noted to L hip. Base of each wound is necrotic and soft with marginal erythema.(L)2cm x (W)3.7cm NO erythema or odor noted. Historical Scar noted at L hip in close proximity to wound. L heel boggy with non-blanching erythema.(L)4cm x (W)4.5cm R heel boggy with non-blanching erythema.(L)5cm x (W)6cm. Pt noted to have several small black droppings in bed. Upon further inspection. Single small brownish bug observed crawling in bed. At posterior aspect of neck pt noted to have macular red rash.Red rash also noted to L axilla .Complete bed Bath provided.And all bed linen removed and mattress sanitized. EVS was notified by Primary nurse. Tx.plan: Apply Moisture Barrier Paste to Sacrum. Cover with Optifoam drsg. Change every 3 days and prn. Cleanse L hip with Saline. Apply Therahoney. Apply Cavilon Skin Barrier periwound.Cover with Optifoam drsg. Change every 3 days and prn. Apply Cavilon Skin Barrier to both heels. Cover each heel with Optifoam drsg. Change every 7 days and prn. APM/YURIY mattress overlay. Reposition at least every 2hours or as tolerated. Off-load heels with pillow. (2) Sepsis Assessment & Plan: Leukocytosis, abnormal labs, tachycardic, per report fevers UA identified urosepsis bacteremic On antibiotics as per infectious disease Trend labs Okay for diet A.m. labs Wounds unlikely etiology of sepsis as they are chronic and do not look actively infected We will follow with recommendations thank you for let me participate in patient' s care Darrius Miller Aug 31, 2019 11:30
[2019-08-31] MEDS: 1/2NS w/KCl 20mEq 1000ml 1,000 ML IV SCH (11:37)
[2019-08-31] MEDS ORDERED: NS 275ml ONE (13:25)
[2019-08-31] MEDS ORDERED: Tubing IV Secondary IV ONE (13:25)
--- NOTE | 2019-08-31 14:53 | Cardiac Electrophysiology PN ---
Assessment/Plan Assessment/Plan 1. Elevated troponin due to renal failure with creatinine 1.7. All troponins are between 0.5 and 0.7. Has no CP and underlying left bundle -branch block. Echo Nl EF and no vegetations. On aspirin and beta-lisbeth, and off statin in view of rhabdomyolysis. 2. Hypertension. 3. LBBB and sinus dorian in 30s. Now off Lopressor 4. Nonsustained VT. . 5. Heart failure. BNP of more than 24,000. Echocardiogram Nl EF. Could be HFpEF 6. Urinary tract infection, on IV antibiotic. 7. 4/4 Strep Bacteremia with WBC 25K. R/O endocarditis. ERIBERTO pending Monday 8. Renal failure. Creatinine of 1.7. 9. Uncontrolled diabetes DW RN Subjective Subjective Remained in SR with LBBB. No further VT. RN at bedside. HR better off Lopressor Objective Last 24 Hour Vital Signs Date Time Temp Pulse Resp B/P (MAP) Pulse Ox O2 Delivery O2 Flow Rate FiO2 08/31/19 12:00 91 08/31/19 12:00 97.7 84 17 142/63 (89) 95 08/31/19 09:38 79 139/58 08/31/19 08:00 Room Air 08/31/19 08:00 97.0 79 20 139/58 (85) 97 08/31/19 07:44 75 08/31/19 04:41 80 08/31/19 04:00 Room Air 08/31/19 04:00 97.5 87 16 154/68 (96) 95 08/31/19 00:00 98.4 66 16 120/51 (74) 95 08/31/19 00:00 Room Air 08/31/19 00:00 60 08/30/19 20:00 Room Air 08/30/19 20:00 73 08/30/19 20:00 98.2 80 16 141/66 (91) 98 08/30/19 16:00 Room Air 08/30/19 16:00 98.0 87 18 138/61 (86) 98 08/30/19 15:30 82 Intake and Output 08/30/19 08/31/19 18:59 06:59 Intake Total 675.000 ml 698.75 ml Output Total 600 ml 400 ml Balance 75.000 ml 298.75 ml Intake Oral 400 ml 30 ml IV Total 275.000 ml 668.75 ml Output Urine Total 600 ml 400 ml # Bowel Movements 2 2 Laboratory Tests Test 08/31/19 05:15 White Blood Count 12.4 K/UL (4.8-10.8) H Red Blood Count 3.22 M/UL (4.20-5.40) L Hemoglobin 8.9 G/DL (12.0-16.0) L Hematocrit 27.1 % (37.0-47.0) L Mean Corpuscular Volume 84 FL (80-99) Mean Corpuscular Hemoglobin 27.5 PG (27.0-31.0) Mean Corpuscular Hemoglobin Concent 32.6 G/DL (32.0-36.0) Red Cell Distribution Width 12.9 % (11.6-14.8) Platelet Count 179 K/UL (150-450) Mean Platelet Volume 7.7 FL (6.5-10.1) Neutrophils (%) (Auto) 72.2 % (45.0-75.0) Lymphocytes (%) (Auto) 16.7 % (20.0-45.0) L Monocytes (%) (Auto) 9.6 % (1.0-10.0) Eosinophils (%) (Auto) 0.9 % (0.0-3.0) Basophils (%) (Auto) 0.6 % (0.0-2.0) Sodium Level 146 MMOL/L (136-145) H Potassium Level 3.5 MMOL/L (3.5-5.1) Chloride Level 109 MMOL/L (98-107) H Carbon Dioxide Level 25 MMOL/L (21-32) Anion Gap 12 mmol/L (5-15) Blood Urea Nitrogen 10 mg/dL (7-18) Creatinine 0.9 MG/DL (0.55-1.30) Estimat Glomerular Filtration Rate mL/min (>60) Glucose Level 158 MG/DL (74-106) H Calcium Level 8.3 MG/DL (8.5-10.1) L Objective HEAD AND NECK: No JVD LUNGS: Clear. CARDIOVASCULAR: Regular S1 and S2 with no gallop or murmur. ABDOMEN: Soft. EXTREMITIES: No pitting edema. Luis Purdy MD Aug 31, 2019 14:53
--- NOTE | 2019-08-31 19:05 | NUR ---
HAND-OFF: Report given to Santos Garcia RN. Patient in stable condition.
--- NOTE | 2019-08-31 19:20 | NUR ---
NURSE NOTES: Received report from ISHAAN Barr, pt. in bed awake, A/O x's1-2- alert to name- appears to be confused, no signs or symptoms of acute cardiac or respiratory distress noted, bed alarm on, side rails up x's3 and safety brakes engaged, pt. appears to be sating well on room air- no distress noted, pt. appears to be resting comfortably, Buckner intact and draining to gravity, RFA 20G IV intact and patent running 1/2 NS w/20MEq KCL at 75cc/hr, safety measures continued, will continue with plan of care.
--- NOTE | 2019-08-31 20:31 | General Progress Note ---
Assessment/Plan Status: stable Assessment/Plan: 84-year-old lady from [facility] with history of hypertension, uncontrolled diabetes, and Parkinson disease, who was brought to the emergency room by family member for altered mental status and weakness. Found to have severe sepsis due to ESBL UTI, groub b strep bacteremia, OWEN vs OWEN on CKD and NSTEMI. Heart failure. BNP of more than 24,000. Echocardiogram Nl EF. ?HFpEF. developed hypernatremia. Hypokalemia, poor po intake Plan: - PCU level of care - cardiology consult appreciated - heparin gtt per acs protocol, DC per cards, no chest pain, stable troponin. Continue ASA, beta lisbeth (Lopressor 25), hold off on statin due to rhabdomyolysis. Decrease Lopressor to 12.5 mg bid due to low heart rate, eventually had to stop due to bradycardia on 08/29 - trend tn/ekg - TTE, normal EF, no vegetations, in view of strep bacteremia in 4/4 bottles, needs a ERIBERTO to r/o endocarditis, I am told on hold due to bradycardia. surveilence cultures negative - start IV 1/2NS with kcl at 75 ml/hr -monitor serum sodium, replace k - s/p lasix 20 IV x on admit - ID consult appeciated - c/w empiric vanco/zosyn, switched to meropenem based on sensitivities - follow urine and blood cx's. / strep bacteremia with wbc 25k--> now 14 , cbc pending today, repeat blood cultures no growth to date - c/w PD regimen - A1c 9-->insulin sliding scale ac/hs, change to resistant scale, poor po intake - supportive care - delirium precautions -d/w ID -discuss goal of care with family, grand daughter [phone], unable to reach Time of this note may not reflect the time of the clinical encounter. 38 minutes spent on exam with more than 50% dedicated to care coordination and counseling. Extra 42 minutes spent in review of additional records, including notes, imaging, labs, ancillary data. Subjective Date patient seen: Aug 31, 2019 Allergies: Coded Allergies: No Known Allergies (Unverified , 10/23/13) Subjective Interviewed in Maltese, patient denies chest pain, shortness of breath, fevers, chills Objective Last 24 Hour Vital Signs Date Time Temp Pulse Resp B/P (MAP) Pulse Ox O2 Delivery O2 Flow Rate FiO2 08/31/19 16:00 Room Air 08/31/19 16:00 97.7 78 18 119/56 (77) 95 08/31/19 15:32 82 08/31/19 12:00 91 08/31/19 12:00 Room Air 08/31/19 12:00 97.7 84 17 142/63 (89) 95 08/31/19 09:38 79 139/58 08/31/19 08:00 Room Air 08/31/19 08:00 97.0 79 20 139/58 (85) 97 08/31/19 07:44 75 08/31/19 04:41 80 08/31/19 04:00 Room Air 08/31/19 04:00 97.5 87 16 154/68 (96) 95 08/31/19 00:00 98.4 66 16 120/51 (74) 95 08/31/19 00:00 Room Air 08/31/19 00:00 60 Intake and Output 08/30/19 08/31/19 19:00 07:00 Intake Total 675.000 ml 773.75 ml Output Total 600 ml 400 ml Balance 75.000 ml 373.75 ml Intake Oral 400 ml 30 ml IV Total 275.000 ml 743.75 ml Output Urine Total 600 ml 400 ml # Bowel Movements 2 2 Laboratory Tests 08/31/19 05:15: White Blood Count 12.4H, Red Blood Count 3.22L, Hemoglobin 8.9L, Hematocrit 27.1L, Mean Corpuscular Volume 84, Mean Corpuscular Hemoglobin 27.5, Mean Corpuscular Hemoglobin Concent 32.6, Red Cell Distribution Width 12.9, Platelet Count 179, Mean Platelet Volume 7.7, Neutrophils (%) (Auto) 72.2, Lymphocytes (% ) (Auto) 16.7L, Monocytes (%) (Auto) 9.6, Eosinophils (%) (Auto) 0.9, Basophils (%) (Auto) 0.6, Sodium Level 146H, Potassium Level 3.5, Chloride Level 109H, Carbon Dioxide Level 25, Anion Gap 12, Blood Urea Nitrogen 10, Creatinine 0.9, Estimat Glomerular Filtration Rate , Glucose Level 158H, Calcium Level 8.3L Height (Feet): 5 Height (Inches): 3.00 Weight (Pounds): 116 Objective GENERAL: No acute distress, appears comfortable, alert HEENT: NCAT, non-icteric eyes, pupils PERRLA Neck: No cervical lymphadenopathy, trachea midline CV: Regular rate and rhythm, no murmurs rubs or gallops RESP: Clear to auscultation bilaterally, no wheezes/rhonchi/crackles ABD: soft, non-distended, no TTP EXT: Normal muscle tone, +5/5 muscle strength NEURO: No obvious deficits, alert and oriented x3 Madelin Amos DO Aug 31, 2019 20:31
--- NOTE | 2019-08-31 22:11 | NUR ---
NURSE NOTES: Per alarm security or surveillance monitor Grzegorz- rhythm strip showing prolonged QRS- will do EKG. pt. appears to be stable and no distress noted.
--- NOTE | 2019-08-31 22:22 | NUR ---
NURSE NOTES: EKG done- shows Normal Sinus Rhythm- will continue to monitor pt. and with plan of care.
[2019-09-01] MEDS: 1/2NS w/KCl 20mEq 1000ml 1,000 ML IV SCH ×2 (01:20→14:05)
--- NOTE | 2019-09-01 03:14 | NUR ---
HAND-OFF: Report given to ISHAAN Hackett- pt. remains stable and no signs of distress noted- bed alarm on during rounds.
--- NOTE | 2019-09-01 03:15 | NUR ---
NURSE NOTES: Received patient from ISHAAN Bhandari. Patient is aaox2, vss, with no sign of distress. Patient is cooperative and clean. Patient is on a case monitor with reported IV site on right forearm 22g running 1/2NS 20mEq KTL at 75mL/hr. Patient is on case monitor and in bed resting. Wounds noted. Bed at its lowest position, call light in reach and x3 bed rails are up. Will continue to monitor.
[2019-09-01 04:00] VITALS: BP 138/69
[2019-09-01] MEDS: Meropenem 500mg/NS 55ml IVPB SCH ×4 (04:30→15:47)
[2019-09-01 04:42] LABS: BASOPHILS % (AUTO) 0.7 % (0.0-2.0); EOSINOPHILS % (AUTO) 1.9 % (0.0-3.0); HEMATOCRIT 24.3 % (37.0-47.0); HEMOGLOBIN 8.1 G/DL (12.0-16.0); LYMPHOCYTES % (AUTO) 17.5 % (20.0-45.0); MEAN CORPUSCULAR VOLUME 84 FL (80-99); MONOCYTES % (AUTO) 7.2 % (1.0-10.0); NEUTROPHILS % (AUTO) 72.8 % (45.0-75.0); PLATELET COUNT 183 K/UL (150-450); RED BLOOD COUNT 2.89 M/UL (4.20-5.40); RED CELL DISTRIBUTION WIDTH 12.7 % (11.6-14.8); WHITE BLOOD COUNT 12.1 K/UL (4.8-10.8)
[2019-09-01 04:56] LABS: ANION GAP 10 mmol/L (5-15); BLOOD UREA NITROGEN 11 mg/dL (7-18); CALCIUM 7.9 MG/DL (8.5-10.1); CARBON DIOXIDE 23 MMOL/L (21-32); CHLORIDE 108 MMOL/L (98-107); CREATININE 0.8 MG/DL (0.55-1.30); POTASSIUM 3.6 MMOL/L (3.5-5.1); SODIUM 141 MMOL/L (136-145)
[2019-09-01] MEDS: NovoLOG Insulin Flexpen SUBQ SCH ×4 (06:05→21:00)
--- NOTE | 2019-09-01 06:07 | NUR ---
NURSE NOTES: Patient's dinner tray and previous I/O records show a reduced apatite. Half dose of Novalog given.
--- NOTE | 2019-09-01 07:15 | NUR ---
NURSE NOTES: Received report from Teofilo Henry RN. Patient alert and oriented x 2, able to follow simple commands. SR 82 on traffic monitor specialist. On room air, no s/s of respiratory distress noted. Buckner catheter patent and draining well. Right forearm 22g IV site infusing 1/2NS with 20 meq KCl @ 75 cc/hr, asymptomatic. Bed locked in lowest position with side rails up x 3. All needs attended to. Call light within reach. Will continue to monitor.
--- NOTE | 2019-09-01 07:16 | NUR ---
HAND-OFF: Report given to ISHAAN Barr.
[2019-09-01 08:00] VITALS: BP 150/74
[2019-09-01] MEDS: Levodopa/Carbidopa 10/100 tab ORAL SCH ×3 (09:26→17:03)
[2019-09-01] MEDS: Aspirin Baby 81mg ORAL SCH (09:26)
[2019-09-01] MEDS: Vancomycin 750 MG in NS 275 ML IVPB SCH (09:26)
--- NOTE | 2019-09-01 11:31 | Surgery Progress Note ---
Surgery Progress Note Subjective Additional Comments no acute events comfortable stable Objective Last 24 Hour Vital Signs Date Time Temp Pulse Resp B/P (MAP) Pulse Ox O2 Delivery O2 Flow Rate FiO2 09/01/19 09:26 83 150/74 09/01/19 08:05 83 09/01/19 08:00 Room Air 09/01/19 08:00 98.4 85 19 150/74 (99) 96 09/01/19 04:00 76 09/01/19 04:00 Room Air 09/01/19 04:00 98.2 71 21 138/69 (92) 97 09/01/19 00:00 Room Air 08/31/19 23:47 74 08/31/19 23:34 98.1 78 18 146/62 (90) 95 08/31/19 20:00 97.9 74 18 143/57 (85) 96 08/31/19 20:00 Room Air 08/31/19 19:55 76 08/31/19 16:00 Room Air 08/31/19 16:00 97.7 78 18 119/56 (77) 95 08/31/19 15:32 82 08/31/19 12:00 91 08/31/19 12:00 Room Air 08/31/19 12:00 97.7 84 17 142/63 (89) 95 I&O Intake and Output 08/31/19 09/01/19 18:59 06:59 Intake Total 1675.000 ml 930 ml Output Total 500 ml 450 ml Balance 1175.000 ml 480 ml Intake Oral 480 ml IV Total 1195.000 ml 930 ml Output Urine Total 500 ml 450 ml # Voids 1 Dressing: other Wound: other Drains: other Cardiovascular: RSR Respiratory: decreased breath sounds Abdomen: soft, present bowel sounds Extremities: no edema, no cyanosis Laboratory Tests Test 09/01/19 03:45 White Blood Count 12.1 K/UL (4.8-10.8) H Red Blood Count 2.89 M/UL (4.20-5.40) L Hemoglobin 8.1 G/DL (12.0-16.0) L Hematocrit 24.3 % (37.0-47.0) L Mean Corpuscular Volume 84 FL (80-99) Mean Corpuscular Hemoglobin 28.2 PG (27.0-31.0) Mean Corpuscular Hemoglobin Concent 33.5 G/DL (32.0-36.0) Red Cell Distribution Width 12.7 % (11.6-14.8) Platelet Count 183 K/UL (150-450) Mean Platelet Volume 7.7 FL (6.5-10.1) Neutrophils (%) (Auto) 72.8 % (45.0-75.0) Lymphocytes (%) (Auto) 17.5 % (20.0-45.0) L Monocytes (%) (Auto) 7.2 % (1.0-10.0) Eosinophils (%) (Auto) 1.9 % (0.0-3.0) Basophils (%) (Auto) 0.7 % (0.0-2.0) Sodium Level 141 MMOL/L (136-145) Potassium Level 3.6 MMOL/L (3.5-5.1) Chloride Level 108 MMOL/L (98-107) H Carbon Dioxide Level 23 MMOL/L (21-32) Anion Gap 10 mmol/L (5-15) Blood Urea Nitrogen 11 mg/dL (7-18) Creatinine 0.8 MG/DL (0.55-1.30) Estimat Glomerular Filtration Rate mL/min (>60) Glucose Level 182 MG/DL (74-106) H Calcium Level 7.9 MG/DL (8.5-10.1) L Plan Problems: (1) Decubitus skin ulcer Assessment & Plan: Pt presented on admission with multiple pressure injuries. DTPI Sacrum (L)10cm x (W)9cm with small slit at sacrococcygeal area(L)0.5cm- small amt sanguineous exudate noted.Base of wound is maroon and indurated. Two Unstageable pressure injuries in close proximity noted to L hip. Base of each wound is necrotic and soft with marginal erythema.(L)2cm x (W)3.7cm NO erythema or odor noted. Historical Scar noted at L hip in close proximity to wound. L heel boggy with non-blanching erythema.(L)4cm x (W)4.5cm R heel boggy with non-blanching erythema.(L)5cm x (W)6cm. Pt noted to have several small black droppings in bed. Upon further inspection. Single small brownish bug observed crawling in bed. At posterior aspect of neck pt noted to have macular red rash.Red rash also noted to L axilla .Complete bed Bath provided.And all bed linen removed and mattress sanitized. EVS was notified by Primary nurse. Tx.plan: Apply Moisture Barrier Paste to Sacrum. Cover with Optifoam drsg. Change every 3 days and prn. Cleanse L hip with Saline. Apply Therahoney. Apply Cavilon Skin Barrier periwound.Cover with Optifoam drsg. Change every 3 days and prn. Apply Cavilon Skin Barrier to both heels. Cover each heel with Optifoam drsg. Change every 7 days and prn. APM/YURIY mattress overlay. Reposition at least every 2hours or as tolerated. Off-load heels with pillow. (2) Sepsis Assessment & Plan: Leukocytosis, abnormal labs, tachycardic, per report fevers UA identified urosepsis bacteremic On antibiotics as per infectious disease Trend labs Okay for diet A.m. labs Wounds unlikely etiology of sepsis as they are chronic and do not look actively infected We will follow with recommendations thank you for let me participate in patient' s care Darrius Miller Sep 01, 2019 11:31
[2019-09-01 12:00] VITALS: BP 157/67
[2019-09-01] MEDS ORDERED: Tubing IV Secondary IV ONE (13:29)
--- NOTE | 2019-09-01 15:40 | NUR ---
HAND-OFF: Report given to Dominique Martins RN.
[2019-09-01 16:00] VITALS: BP 118/62
--- NOTE | 2019-09-01 16:03 | NUR ---
NURSE NOTES: Received report from ISHAAN Schuler. Patient is resting in bed in stable condition. No s/sx of SOB, breathing is even and unlabored. Observed no presence of pain or discomfort at this time. Bed is in lowest position, brakes engaged. Call light is kept within easy reach. Will continue to monitor patient.
--- NOTE | 2019-09-01 16:44 | Infectious Diseases Prog Note ---
Assessment/Plan Assessment/Plan ASSESSMENT AND PLAN: 1. streptococcus agalactiae - group b bacteremia, ? endocarditis, esbl e.coli uti, sirs, leukocytosis - meropenem and vancomycin - day # 9 antibiotics - ERIBERTO planned - f/u blood cultures negative, monitor labs, mild leukocytosis 2. Acute kidney injury with elevated creatinine. 3. History of diabetes. 4. weakness 5. Blood pressure treatment per primary care team and diabetes treatment per primary care team and consultants. 6. Parkinson's. 7. Dementia. 8. The patient does have also elevated troponin. Cardiology follow-up. 9. MAR was noted. 10. Case was discussed with RN. 11. No known allergies. 12. Social history is negative. 13. Family history is noncontributory. 14. Continue treatment per primary consultants. 15. Orders were noted and entered. Subjective Constitutional: Denies: fever HEENT: Denies: congestion Respiratory: Denies: shortness of breath Cardiovascular: Denies: chest pain Gastrointestinal/Abdominal: Denies: nausea, vomiting, diarrhea Genitourinary: Reports: other - + arnold Neurologic: Denies: headache Psychiatric: Denies: depression Skin: Denies: rash Hematologic: Denies: bleeding Musculoskeletal: Denies: pain Allergies: Coded Allergies: No Known Allergies (Unverified , 10/23/13) Objective Vital Signs Last 24 Hour Vital Signs Date Time Temp Pulse Resp B/P (MAP) Pulse Ox O2 Delivery O2 Flow Rate FiO2 09/01/19 16:00 Room Air 09/01/19 12:00 97.4 87 20 157/67 (97) 94 09/01/19 12:00 78 09/01/19 12:00 Room Air 09/01/19 09:26 83 150/74 09/01/19 08:05 83 09/01/19 08:00 Room Air 09/01/19 08:00 98.4 85 19 150/74 (99) 96 09/01/19 04:00 76 09/01/19 04:00 Room Air 09/01/19 04:00 98.2 71 21 138/69 (92) 97 09/01/19 00:00 Room Air 08/31/19 23:47 74 08/31/19 23:34 98.1 78 18 146/62 (90) 95 08/31/19 20:00 97.9 74 18 143/57 (85) 96 08/31/19 20:00 Room Air 08/31/19 19:55 76 Height (Feet): 5 Height (Inches): 3.00 Weight (Pounds): 116 General Appearance: no acute distress HEENT: normocephalic, atraumatic, anicteric, mucous membranes moist Respiratory/Chest: crackles/rales, rhonchi - bilaterally Cardiovascular: normal rate, regular rhythm, no gallop/murmur, no JVD Abdomen: no organomegaly, non distended Genitourinary: other - + arnold - urine slt cloudy Extremities: no cyanosis Skin: no rash 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 Pleural space: Unremarkable. No pneumothorax. Heart: Borderline cardiomegaly, potentially exaggerated by portable technique. Mediastinum: Calcified aorta. Bones/joints: Osteopenia. Degenerative changes. IMPRESSION: Mild vascular congestion Microbiology Date/Time Source Procedure Growth Status 08/26/19 03:50 Blood Blood Culture - Final NO GROWTH AFTER 5 DAYS Complete 08/24/19 14:25 Urine,Clean Catch Urine Culture - Final Escherichia Coli - Esbl Complete initial bc - g-b strep agalactiae Laboratory Tests Test 09/01/19 03:45 White Blood Count 12.1 K/UL (4.8-10.8) H Red Blood Count 2.89 M/UL (4.20-5.40) L Hemoglobin 8.1 G/DL (12.0-16.0) L Hematocrit 24.3 % (37.0-47.0) L Mean Corpuscular Volume 84 FL (80-99) Mean Corpuscular Hemoglobin 28.2 PG (27.0-31.0) Mean Corpuscular Hemoglobin Concent 33.5 G/DL (32.0-36.0) Red Cell Distribution Width 12.7 % (11.6-14.8) Platelet Count 183 K/UL (150-450) Mean Platelet Volume 7.7 FL (6.5-10.1) Neutrophils (%) (Auto) 72.8 % (45.0-75.0) Lymphocytes (%) (Auto) 17.5 % (20.0-45.0) L Monocytes (%) (Auto) 7.2 % (1.0-10.0) Eosinophils (%) (Auto) 1.9 % (0.0-3.0) Basophils (%) (Auto) 0.7 % (0.0-2.0) Sodium Level 141 MMOL/L (136-145) Potassium Level 3.6 MMOL/L (3.5-5.1) Chloride Level 108 MMOL/L (98-107) H Carbon Dioxide Level 23 MMOL/L (21-32) Anion Gap 10 mmol/L (5-15) Blood Urea Nitrogen 11 mg/dL (7-18) Creatinine 0.8 MG/DL (0.55-1.30) Estimat Glomerular Filtration Rate mL/min (>60) Glucose Level 182 MG/DL (74-106) H Calcium Level 7.9 MG/DL (8.5-10.1) L Current Medications Medications (Trade) Dose Ordered Sig/Krystin Route PRN Reason Start Time Stop Time Status Last Admin Dose Admin Acetaminophen (Tylenol) 650 mg Q4H PRN ORAL Mild Pain/Temp > 100.5 08/25/19 12:45 09/24/19 12:44 Amlodipine Besylate (Norvasc) 5 mg DAILY ORAL 08/29/19 09:00 09/28/19 08:59 09/01/19 09:26 Aspirin (ASA) 81 mg DAILY ORAL 08/25/19 09:00 09/24/19 08:59 09/01/19 09:26 Carbidopa/Levodopa (Sinemet 10/100) 1 tab THREE TIMES A DAY ORAL 08/25/19 09:00 09/24/19 08:59 09/01/19 12:46 Dextrose (Dextrose 50%) 25 ml Q30M PRN IV Hypoglycemia 08/24/19 19:15 09/23/19 19:14 Dextrose (Dextrose 50%) 50 ml Q30M PRN IV Hypoglycemia 08/24/19 19:15 09/23/19 19:14 Insulin Aspart (NovoLOG) BEFORE MEALS AND HS SUBQ 08/30/19 21:00 09/29/19 20:59 09/01/19 16:39 Meropenem 500 mg/ Sodium Chloride 55 ml @ 110 mls/hr Q12HR@0400,1600 IVPB 08/26/19 16:00 09/04/19 23:59 09/01/19 15:47 Sodium 1,000 ml @ 75 mls/hr [id number] IV 08/30/19 22:00 09/29/19 21:59 09/01/19 14:05 Vancomycin HCl (Vanco rx to dose) 1 ea DAILY PRN MISC Per rx protocol 08/25/19 07:30 09/24/19 07:29 Vancomycin HCl 750 mg/Sodium Chloride 275 ml @ 183.333 mls/hr Q24H IVPB 08/30/19 09:00 09/04/19 08:59 09/01/19 09:26 Gerardo Toledo MD Sep 01, 2019 16:44
--- NOTE | 2019-09-01 17:30 | Cardiac Electrophysiology PN ---
Assessment/Plan Assessment/Plan 1. Elevated troponin due to renal failure with creatinine 1.7. Troponins between 0.5 and 0.7. Has no CP and underlying left bundle- branch block. Echo Nl EF and no vegetations. On aspirin and beta-lisbeth, and off statin in view of rhabdomyolysis. 2. Hypertension. 3. LBBB and sinus dorian in 30s. Now off Lopressor 4. Nonsustained VT. . 5. Heart failure. BNP of more than 24,000. Echocardiogram Nl EF. Could be HFpEF 6. Urinary tract infection, on IV antibiotic. 7. 4/4 Strep Bacteremia with WBC 25K. R/O endocarditis. ERIBERTO pending Monday 8. Renal failure. Creatinine of 1.7. 9. Uncontrolled diabetes DW RN Subjective Subjective Remained in SR with LBBB.No events Objective Last 24 Hour Vital Signs Date Time Temp Pulse Resp B/P (MAP) Pulse Ox O2 Delivery O2 Flow Rate FiO2 09/01/19 16:00 98.1 72 20 118/62 (80) 95 09/01/19 16:00 Room Air 09/01/19 12:00 97.4 87 20 157/67 (97) 94 09/01/19 12:00 78 09/01/19 12:00 Room Air 09/01/19 09:26 83 150/74 09/01/19 08:05 83 09/01/19 08:00 Room Air 09/01/19 08:00 98.4 85 19 150/74 (99) 96 09/01/19 04:00 76 09/01/19 04:00 Room Air 09/01/19 04:00 98.2 71 21 138/69 (92) 97 09/01/19 00:00 Room Air 08/31/19 23:47 74 08/31/19 23:34 98.1 78 18 146/62 (90) 95 08/31/19 20:00 97.9 74 18 143/57 (85) 96 08/31/19 20:00 Room Air 08/31/19 19:55 76 Intake and Output 08/31/19 09/01/19 19:00 07:00 Intake Total 1675.000 ml 930 ml Output Total 500 ml 450 ml Balance 1175.000 ml 480 ml Intake Oral 480 ml IV Total 1195.000 ml 930 ml Output Urine Total 500 ml 450 ml # Voids 1 Laboratory Tests Test 09/01/19 03:45 White Blood Count 12.1 K/UL (4.8-10.8) H Red Blood Count 2.89 M/UL (4.20-5.40) L Hemoglobin 8.1 G/DL (12.0-16.0) L Hematocrit 24.3 % (37.0-47.0) L Mean Corpuscular Volume 84 FL (80-99) Mean Corpuscular Hemoglobin 28.2 PG (27.0-31.0) Mean Corpuscular Hemoglobin Concent 33.5 G/DL (32.0-36.0) Red Cell Distribution Width 12.7 % (11.6-14.8) Platelet Count 183 K/UL (150-450) Mean Platelet Volume 7.7 FL (6.5-10.1) Neutrophils (%) (Auto) 72.8 % (45.0-75.0) Lymphocytes (%) (Auto) 17.5 % (20.0-45.0) L Monocytes (%) (Auto) 7.2 % (1.0-10.0) Eosinophils (%) (Auto) 1.9 % (0.0-3.0) Basophils (%) (Auto) 0.7 % (0.0-2.0) Sodium Level 141 MMOL/L (136-145) Potassium Level 3.6 MMOL/L (3.5-5.1) Chloride Level 108 MMOL/L (98-107) H Carbon Dioxide Level 23 MMOL/L (21-32) Anion Gap 10 mmol/L (5-15) Blood Urea Nitrogen 11 mg/dL (7-18) Creatinine 0.8 MG/DL (0.55-1.30) Estimat Glomerular Filtration Rate mL/min (>60) Glucose Level 182 MG/DL (74-106) H Calcium Level 7.9 MG/DL (8.5-10.1) L Objective HEAD AND NECK: No JVD LUNGS: Clear. CARDIOVASCULAR: Regular S1 and S2 with no gallop or murmur. ABDOMEN: Soft. EXTREMITIES: No pitting edema. Luis Purdy MD Sep 01, 2019 17:30
--- NOTE | 2019-09-01 19:20 | NUR ---
NURSE NOTES: received pt from Ochoa QUIROS., pt is AOx0-1 confused pt, pt is in RA no s/s of SOB and no s/s Respiratory distress at this moment. pt states no pain now. Buckner cath is intact,clean and draining well with gravity. moist redness noted on genital area. right FA 22Gis intact, patent, and clean. call light within reach. bed at the lowest position, alarmed, and locked. will continue to monitor pt with plan of care,
[2019-09-01 20:00] VITALS: BP 123/52
--- NOTE | 2019-09-01 22:42 | General Progress Note ---
Assessment/Plan Status: stable Assessment/Plan: 84-year-old lady from [facility] with history of hypertension, uncontrolled diabetes, and Parkinson disease, who was brought to the emergency room by family member for altered mental status and weakness. Found to have severe sepsis due to ESBL UTI, groub b strep bacteremia, OWEN vs OWEN on CKD and NSTEMI. Heart failure. BNP of more than 24,000. Echocardiogram Nl EF. ?HFpEF. developed hypernatremia. Hypokalemia, poor po intake Plan: - PCU level of care - cardiology consult appreciated - heparin gtt per acs protocol, DC per cards, no chest pain, stable troponin. Continue ASA, beta lisbeth (Lopressor 25), hold off on statin due to rhabdomyolysis. Decrease Lopressor to 12.5 mg bid due to low heart rate, eventually had to stop due to bradycardia on 08/29 - trend tn/ekg - TTE, normal EF, no vegetations, in view of strep bacteremia in 4/4 bottles, needs a ERIBERTO to r/o endocarditis, I am told on hold due to bradycardia. surveilence cultures negative - start IV 1/2NS with kcl at 75 ml/hr--> dc IVF -monitor serum sodium, replace k - s/p lasix 20 IV x on admit - ID consult appeciated - c/w empiric vanco/zosyn, switched to meropenem based on sensitivities - follow urine and blood cx's. 4/4 strep bacteremia with wbc 25k--> now 14 , cbc pending today, repeat blood cultures no growth to date - c/w PD regimen - A1c 9-->insulin sliding scale ac/hs, change to resistant scale, poor po intake - supportive care - delirium precautions -d/w ID -discuss goal of care with family, grand daughter [phone], unable to reach Time of this note may not reflect the time of the clinical encounter. 38 minutes spent on exam with more than 50% dedicated to care coordination and counseling. Subjective Date patient seen: Sep 01, 2019 Allergies: Coded Allergies: No Known Allergies (Unverified , 10/23/13) Subjective Interviewed in Bangladeshi, patient denies chest pain, shortness of breath, fevers, chills admits to fatigue Objective Last 24 Hour Vital Signs Date Time Temp Pulse Resp B/P (MAP) Pulse Ox O2 Delivery O2 Flow Rate FiO2 1/26/20 16:00 98.1 72 20 118/62 (80) 95 09/01/19 16:00 Room Air 09/01/19 16:00 76 09/01/19 12:00 97.4 87 20 157/67 (97) 94 09/01/19 12:00 78 09/01/19 12:00 Room Air 09/01/19 09:26 83 150/74 09/01/19 08:05 83 09/01/19 08:00 Room Air 09/01/19 08:00 98.4 85 19 150/74 (99) 96 09/01/19 04:00 76 09/01/19 04:00 Room Air 09/01/19 04:00 98.2 71 21 138/69 (92) 97 09/01/19 00:00 Room Air 08/31/19 23:47 74 08/31/19 23:34 98.1 78 18 146/62 (90) 95 Intake and Output 08/31/19 09/01/19 19:00 07:00 Intake Total 1675.000 ml 930 ml Output Total 500 ml 450 ml Balance 1175.000 ml 480 ml Intake Oral 480 ml IV Total 1195.000 ml 930 ml Output Urine Total 500 ml 450 ml # Voids 1 Laboratory Tests 09/01/19 03:45: White Blood Count 12.1H, Red Blood Count 2.89L, Hemoglobin 8.1L, Hematocrit 24.3L, Mean Corpuscular Volume 84, Mean Corpuscular Hemoglobin 28.2, Mean Corpuscular Hemoglobin Concent 33.5, Red Cell Distribution Width 12.7, Platelet Count 183, Mean Platelet Volume 7.7, Neutrophils (%) (Auto) 72.8, Lymphocytes (% ) (Auto) 17.5L, Monocytes (%) (Auto) 7.2, Eosinophils (%) (Auto) 1.9, Basophils (%) (Auto) 0.7, Sodium Level 141, Potassium Level 3.6, Chloride Level 108H, Carbon Dioxide Level 23, Anion Gap 10, Blood Urea Nitrogen 11, Creatinine 0.8, Estimat Glomerular Filtration Rate , Glucose Level 182H, Calcium Level 7.9L Height (Feet): 5 Height (Inches): 3.00 Weight (Pounds): 116 Objective GENERAL: No acute distress, appears comfortable, alert HEENT: NCAT, non-icteric eyes, pupils PERRLA Neck: No cervical lymphadenopathy, trachea midline CV: Regular rate and rhythm, no murmurs rubs or gallops RESP: Clear to auscultation bilaterally, no wheezes/rhonchi/crackles ABD: soft, non-distended, no TTP EXT: Normal muscle tone, +5/5 muscle strength NEURO: No obvious deficits, alert and oriented x3 Madelin Amos DO Sep 01, 2019 22:42
[2019-09-02] VITALS: BP 115/56
--- NOTE | 2019-09-02 02:54 | NUR ---
NURSE NOTES: provided oral care, linen changed, bath pt. no SOB noted, pt is cooperative. call light within reach.
[2019-09-02 04:00] VITALS: BP 135/60
[2019-09-02] MEDS: Meropenem 500mg/NS 55ml IVPB SCH ×4 (04:55→17:46)
[2019-09-02] MEDS: NovoLOG Insulin Flexpen SUBQ SCH ×4 (06:30→21:51)
--- NOTE | 2019-09-02 07:42 | NUR ---
HAND-OFF: Report given to Juana QUIROS. pt is in stable condition.
--- NOTE | 2019-09-02 07:50 | NUR ---
NURSE NOTES: recvd pt. Pt is AOX2 (name and place), pt is on room air with no sign of sob or resp distress. Pt has arnold draining to gravity. Pt has left hand 22g locked. bed in lowest position, call light within reach, will continue with plan of care
[2019-09-02 08:00] VITALS: BP 148/66
[2019-09-02] MEDS: Aspirin Baby 81mg ORAL SCH (08:23)
[2019-09-02] MEDS: Levodopa/Carbidopa 10/100 tab ORAL SCH ×3 (08:23→17:50)
[2019-09-02] MEDS: Vancomycin 750 MG in NS 275 ML IVPB SCH (08:24)
[2019-09-02 09:39] LABS: BASOPHILS % (AUTO) 0.4 % (0.0-2.0); EOSINOPHILS % (AUTO) 1.4 % (0.0-3.0); HEMATOCRIT 26.6 % (37.0-47.0); HEMOGLOBIN 8.8 G/DL (12.0-16.0); LYMPHOCYTES % (AUTO) 16.5 % (20.0-45.0); MEAN CORPUSCULAR VOLUME 84 FL (80-99); MONOCYTES % (AUTO) 4.2 % (1.0-10.0); NEUTROPHILS % (AUTO) 77.5 % (45.0-75.0); PLATELET COUNT 229 K/UL (150-450); RED BLOOD COUNT 3.16 M/UL (4.20-5.40); RED CELL DISTRIBUTION WIDTH 13.5 % (11.6-14.8); WHITE BLOOD COUNT 12.3 K/UL (4.8-10.8)
[2019-09-02 10:12] LABS: ALANINE AMINOTRANSFERASE 13 U/L (12-78); ALBUMIN 1.9 G/DL (3.4-5.0); ALBUMIN/GLOBULIN RATIO 0.4 (1.0-2.7); ALKALINE PHOSPHATASE 110 U/L (46-116); ANION GAP 7 mmol/L (5-15); ASPARTATE AMINO TRANSFERASE 23 U/L (15-37); BILIRUBIN,TOTAL 0.4 MG/DL (0.2-1.0); BLOOD UREA NITROGEN 9 mg/dL (7-18); CALCIUM 7.9 MG/DL (8.5-10.1); CARBON DIOXIDE 24 MMOL/L (21-32); CHLORIDE 105 MMOL/L (98-107); CREATININE 0.9 MG/DL (0.55-1.30); POTASSIUM 4.2 MMOL/L (3.5-5.1); SODIUM 136 MMOL/L (136-145)
[2019-09-02 12:00] VITALS: BP 143/64
--- NOTE | 2019-09-02 14:03 | Surgery Progress Note ---
Surgery Progress Note Subjective Additional Comments no acute events exam stable labs noted Objective Last 24 Hour Vital Signs Date Time Temp Pulse Resp B/P (MAP) Pulse Ox O2 Delivery O2 Flow Rate FiO2 09/02/19 12:00 84 09/02/19 12:00 Room Air 09/02/19 12:00 98.6 81 19 143/64 (90) 97 09/02/19 08:23 75 148/60 09/02/19 08:00 98.4 78 19 148/66 (93) 95 09/02/19 08:00 78 09/02/19 08:00 Room Air 09/02/19 04:00 Room Air 09/02/19 04:00 97.9 72 16 135/60 (85) 96 09/02/19 04:00 75 09/02/19 00:00 Room Air 09/02/19 00:00 98.4 73 16 115/56 (75) 95 09/01/19 23:21 79 09/01/19 20:00 Room Air 09/01/19 20:00 98.1 73 20 123/52 (75) 94 09/01/19 19:13 64 09/01/19 16:00 98.1 72 20 118/62 (80) 95 09/01/19 16:00 Room Air 09/01/19 16:00 76 I&O Intake and Output 09/01/19 09/02/19 19:00 07:00 Intake Total 1161.250 ml 175 ml Output Total 350 ml 500 ml Balance 811.250 ml -325 ml Intake Oral 400 ml 120 ml IV Total 761.250 ml 55 ml Output Urine Total 350 ml 500 ml # Voids 1 # Bowel Movements 1 Dressing: other Wound: other Drains: other Cardiovascular: RSR Respiratory: decreased breath sounds Abdomen: soft, present bowel sounds Extremities: no cyanosis Laboratory Tests Test 09/02/19 08:15 White Blood Count 12.3 K/UL (4.8-10.8) H Red Blood Count 3.16 M/UL (4.20-5.40) L Hemoglobin 8.8 G/DL (12.0-16.0) L Hematocrit 26.6 % (37.0-47.0) L Mean Corpuscular Volume 84 FL (80-99) Mean Corpuscular Hemoglobin 27.7 PG (27.0-31.0) Mean Corpuscular Hemoglobin Concent 33.0 G/DL (32.0-36.0) Red Cell Distribution Width 13.5 % (11.6-14.8) Platelet Count 229 K/UL (150-450) Mean Platelet Volume 7.1 FL (6.5-10.1) Neutrophils (%) (Auto) 77.5 % (45.0-75.0) H Lymphocytes (%) (Auto) 16.5 % (20.0-45.0) L Monocytes (%) (Auto) 4.2 % (1.0-10.0) Eosinophils (%) (Auto) 1.4 % (0.0-3.0) Basophils (%) (Auto) 0.4 % (0.0-2.0) Sodium Level 136 MMOL/L (136-145) Potassium Level 4.2 MMOL/L (3.5-5.1) Chloride Level 105 MMOL/L (98-107) Carbon Dioxide Level 24 MMOL/L (21-32) Anion Gap 7 mmol/L (5-15) Blood Urea Nitrogen 9 mg/dL (7-18) Creatinine 0.9 MG/DL (0.55-1.30) Estimat Glomerular Filtration Rate mL/min (>60) Glucose Level 133 MG/DL (74-106) H Calcium Level 7.9 MG/DL (8.5-10.1) L Total Bilirubin 0.4 MG/DL (0.2-1.0) Aspartate Amino Transf (AST/SGOT) 23 U/L (15-37) Alanine Aminotransferase (ALT/SGPT) 13 U/L (12-78) Alkaline Phosphatase 110 U/L (46-116) Total Protein 6.9 G/DL (6.4-8.2) Albumin 1.9 G/DL (3.4-5.0) L Globulin 5.0 g/dL Albumin/Globulin Ratio 0.4 (1.0-2.7) L Vancomycin Level Trough Pending Plan Problems: (1) Decubitus skin ulcer Assessment & Plan: Pt presented on admission with multiple pressure injuries. DTPI Sacrum (L)10cm x (W)9cm with small slit at sacrococcygeal area(L)0.5cm- small amt sanguineous exudate noted.Base of wound is maroon and indurated. Two Unstageable pressure injuries in close proximity noted to L hip. Base of each wound is necrotic and soft with marginal erythema.(L)2cm x (W)3.7cm NO erythema or odor noted. Historical Scar noted at L hip in close proximity to wound. L heel boggy with non-blanching erythema.(L)4cm x (W)4.5cm R heel boggy with non-blanching erythema.(L)5cm x (W)6cm. Pt noted to have several small black droppings in bed. Upon further inspection. Single small brownish bug observed crawling in bed. At posterior aspect of neck pt noted to have macular red rash.Red rash also noted to L axilla .Complete bed Bath provided.And all bed linen removed and mattress sanitized. EVS was notified by Primary nurse. Tx.plan: Apply Moisture Barrier Paste to Sacrum. Cover with Optifoam drsg. Change every 3 days and prn. Cleanse L hip with Saline. Apply Therahoney. Apply Cavilon Skin Barrier periwound.Cover with Optifoam drsg. Change every 3 days and prn. Apply Cavilon Skin Barrier to both heels. Cover each heel with Optifoam drsg. Change every 7 days and prn. APM/YURIY mattress overlay. Reposition at least every 2hours or as tolerated. Off-load heels with pillow. (2) Sepsis Assessment & Plan: Leukocytosis, abnormal labs, tachycardic, per report fevers UA identified urosepsis bacteremic leukocytosis persistent anemia fevers resolved On antibiotics as per infectious disease Trend labs Okay for diet A.m. labs Wounds unlikely etiology of sepsis as they are chronic and do not look actively infected We will follow with recommendations thank you for let me participate in patient' s care Darrius Miller Sep 02, 2019 14:03
--- NOTE | 2019-09-02 14:18 | NUR ---
NUTRITIONALISTBOX STACKER SI: BACTEREMIA T. 98.6 HR 81 RR 19 B/P 143/68 WBC 12.3 ALB 1.9 IS: VANCO IV MEROPENEM IV ASA STEP DOWN STATUS
--- NOTE | 2019-09-02 15:08 | Cardiac Electrophysiology PN ---
Assessment/Plan Assessment/Plan 1. Elevated troponin due to renal failure with creatinine 1.7. Troponins between 0.5 and 0.7. No CP and underlying left bundle-branch block. Echo Nl EF and no vegetations. On aspirin and beta-lisbeth, and off statin in view of rhabdomyolysis. 2. Hypertension. 3. LBBB and sinus dorian in 30s. Resolved off Lopressor 4. Nonsustained VT. 5. Heart failure. BNP of more than 24,000. Echocardiogram Nl EF. Could be HFpEF 6. Urinary tract infection, on IV antibiotic. 7. 4/4 Strep Bacteremia with WBC 25K. R/O endocarditis. ERIBERTO pending today 8. Renal failure. Creatinine of 1.7. 9. Uncontrolled diabetes DW RN Subjective Subjective Remained in SR with LBBB.No new events. Alert. ERIBERTO still pending. Objective Last 24 Hour Vital Signs Date Time Temp Pulse Resp B/P (MAP) Pulse Ox O2 Delivery O2 Flow Rate FiO2 09/02/19 12:00 84 09/02/19 12:00 Room Air 09/02/19 12:00 98.6 81 19 143/64 (90) 97 09/02/19 08:23 75 148/60 09/02/19 08:00 98.4 78 19 148/66 (93) 95 09/02/19 08:00 78 09/02/19 08:00 Room Air 09/02/19 04:00 Room Air 09/02/19 04:00 97.9 72 16 135/60 (85) 96 09/02/19 04:00 75 09/02/19 00:00 Room Air 09/02/19 00:00 98.4 73 16 115/56 (75) 95 09/01/19 23:21 79 09/01/19 20:00 Room Air 09/01/19 20:00 98.1 73 20 123/52 (75) 94 09/01/19 19:13 64 09/01/19 16:00 98.1 72 20 118/62 (80) 95 09/01/19 16:00 Room Air 09/01/19 16:00 76 Intake and Output 09/01/19 09/02/19 19:00 07:00 Intake Total 1161.250 ml 175 ml Output Total 350 ml 500 ml Balance 811.250 ml -325 ml Intake Oral 400 ml 120 ml IV Total 761.250 ml 55 ml Output Urine Total 350 ml 500 ml # Voids 1 # Bowel Movements 1 Laboratory Tests Test 09/02/19 08:15 White Blood Count 12.3 K/UL (4.8-10.8) H Red Blood Count 3.16 M/UL (4.20-5.40) L Hemoglobin 8.8 G/DL (12.0-16.0) L Hematocrit 26.6 % (37.0-47.0) L Mean Corpuscular Volume 84 FL (80-99) Mean Corpuscular Hemoglobin 27.7 PG (27.0-31.0) Mean Corpuscular Hemoglobin Concent 33.0 G/DL (32.0-36.0) Red Cell Distribution Width 13.5 % (11.6-14.8) Platelet Count 229 K/UL (150-450) Mean Platelet Volume 7.1 FL (6.5-10.1) Neutrophils (%) (Auto) 77.5 % (45.0-75.0) H Lymphocytes (%) (Auto) 16.5 % (20.0-45.0) L Monocytes (%) (Auto) 4.2 % (1.0-10.0) Eosinophils (%) (Auto) 1.4 % (0.0-3.0) Basophils (%) (Auto) 0.4 % (0.0-2.0) Sodium Level 136 MMOL/L (136-145) Potassium Level 4.2 MMOL/L (3.5-5.1) Chloride Level 105 MMOL/L (98-107) Carbon Dioxide Level 24 MMOL/L (21-32) Anion Gap 7 mmol/L (5-15) Blood Urea Nitrogen 9 mg/dL (7-18) Creatinine 0.9 MG/DL (0.55-1.30) Estimat Glomerular Filtration Rate mL/min (>60) Glucose Level 133 MG/DL (74-106) H Calcium Level 7.9 MG/DL (8.5-10.1) L Total Bilirubin 0.4 MG/DL (0.2-1.0) Aspartate Amino Transf (AST/SGOT) 23 U/L (15-37) Alanine Aminotransferase (ALT/SGPT) 13 U/L (12-78) Alkaline Phosphatase 110 U/L (46-116) Total Protein 6.9 G/DL (6.4-8.2) Albumin 1.9 G/DL (3.4-5.0) L Globulin 5.0 g/dL Albumin/Globulin Ratio 0.4 (1.0-2.7) L Vancomycin Level Trough Pending Objective HEAD AND NECK: No JVD LUNGS: Clear. CARDIOVASCULAR: Regular S1 and S2 with no gallop or murmur. ABDOMEN: Soft. EXTREMITIES: No pitting edema. Luis Purdy MD Sep 02, 2019 15:08
--- NOTE | 2019-09-02 15:14 | General Progress Note ---
Assessment/Plan Problem List: (1) Bacteremia due to group B Streptococcus ICD Codes: R78.81 - Bacteremia SNOMED: 666407358722 (2) Severe sepsis ICD Codes: A41.9 - Sepsis, unspecified organism; R65.20 - Severe sepsis without septic shock SNOMED: 05876364 (3) Toxic metabolic encephalopathy ICD Codes: G92 - Toxic encephalopathy SNOMED: 485926273 (4) Diabetes mellitus with hyperglycemia ICD Codes: E11.65 - Type 2 diabetes mellitus with hyperglycemia SNOMED: 09696133, 10421269 (5) OWEN (acute kidney injury) ICD Codes: N17.9 - Acute kidney failure, unspecified SNOMED: 0003499, 72753885 (6) NSTEMI (non-ST elevated myocardial infarction) ICD Codes: I21.4 - Non-ST elevation (NSTEMI) myocardial infarction SNOMED: 80296705, 535510269 (7) Urinary tract infection due to ESBL Klebsiella ICD Codes: N39.0 - Urinary tract infection, site not specified; B96.89 - Other specified bacterial agents as the cause of diseases classified elsewhere SNOMED: 815909239, 495610304250073 (8) Suspected acute on chronic CHF (9) Decubitus skin ulcer ICD Codes: L89.90 - Pressure ulcer of unspecified site, unspecified stage SNOMED: 226091139 (10) ATN (acute tubular necrosis) ICD Codes: N17.0 - Acute kidney failure with tubular necrosis SNOMED: 07060320 (11) Parkinson disease ICD Codes: G20 - Parkinson disease SNOMED: 24240050 (12) Bedbug bite ICD Codes: W57.XXXA - Bitten or stung by nonvenomous insect and other nonvenomous arthropods, initial encounter SNOMED: 098341494 (13) Hypernatremia ICD Codes: E87.0 - Hyperosmolality and hypernatremia SNOMED: 715909602 (14) Hypokalemia ICD Codes: E87.6 - Hypokalemia SNOMED: 98166372 Status: stable Assessment/Plan: 84-year-old lady from [facility] with history of hypertension, uncontrolled diabetes, and Parkinson disease, who was brought to the emergency room by family member for altered mental status and weakness. Found to have severe sepsis due to ESBL UTI, groub b strep bacteremia, ?endocarditis, OWEN vs OWEN on CKD and NSTEMI. Heart failure. BNP of more than 24,000. Echocardiogram Nl EF. ?HFpEF. developed hypernatremia. Hypokalemia, poor po intake Plan: - PCU level of care - cardiology consult appreciated - heparin gtt per acs protocol, DC per cards, no chest pain, stable troponin. Continue ASA, beta lisbeth (Lopressor 25), hold off on statin due to rhabdomyolysis. Decrease Lopressor to 12.5 mg bid due to low heart rate, eventually had to stop due to bradycardia on 08/29 - trend tn/ekg - TTE, normal EF, no vegetations, in view of strep bacteremia in 11/08 bottles, needs a ERIBERTO to r/o endocarditis. =surveillance cultures negative - IV 1/2NS with kcl at 75 ml/hr -monitor serum sodium, replace k - s/p lasix 20 IV x on admit - ID consult appeciated - c/w empiric vanco/zosyn, switched to meropenem based on sensitivities . Now Meropenem and vancomycin day 10 - follow urine and blood cx's. 11/08 strep bacteremia with wbc 25k--> now 12, repeat blood cultures no growth to date - c/w PD regimen - A1c 9-->insulin sliding scale ac/hs, change to resistant scale, poor po intake - supportive care - delirium precautions -d/w ID -discuss goal of care with family, grand daughter [phone], unable to reach. I have asked RN to page me when family at bedside Time of this note may not reflect the time of the clinical encounter. Subjective Date patient seen: Sep 02, 2019 ROS Limited/Unobtainable: Yes Allergies: Coded Allergies: No Known Allergies (Unverified , 10/23/13) Subjective poor historian. following up for severe sepsis, group b strep bacteremia, ? endocarditis, ESBL UTI, OWEN, NSTEMI. Denies any chest pain or sob, alert and awake, follow simple commands. tele reviewed. SR at 30's , LBBB, last night episodes of vtach. renal function trending down. Per RN bedbugs found in her bed. for ERIBERTO , day 10 of antibiotics Objective Last 24 Hour Vital Signs Date Time Temp Pulse Resp B/P (MAP) Pulse Ox O2 Delivery O2 Flow Rate FiO2 09/02/19 12:00 84 09/02/19 12:00 Room Air 09/02/19 12:00 98.6 81 19 143/64 (90) 97 09/02/19 08:23 75 148/60 09/02/19 08:00 98.4 78 19 148/66 (93) 95 09/02/19 08:00 78 09/02/19 08:00 Room Air 09/02/19 04:00 Room Air 09/02/19 04:00 97.9 72 16 135/60 (85) 96 09/02/19 04:00 75 09/02/19 00:00 Room Air 09/02/19 00:00 98.4 73 16 115/56 (75) 95 09/01/19 23:21 79 09/01/19 20:00 Room Air 09/01/19 20:00 98.1 73 20 123/52 (75) 94 09/01/19 19:13 64 09/01/19 16:00 98.1 72 20 118/62 (80) 95 09/01/19 16:00 Room Air 09/01/19 16:00 76 Intake and Output 09/01/19 09/02/19 19:00 07:00 Intake Total 1161.250 ml 175 ml Output Total 350 ml 500 ml Balance 811.250 ml -325 ml Intake Oral 400 ml 120 ml IV Total 761.250 ml 55 ml Output Urine Total 350 ml 500 ml # Voids 1 # Bowel Movements 1 Laboratory Tests 09/02/19 08:15: White Blood Count 12.3H, Red Blood Count 3.16L, Hemoglobin 8.8L, Hematocrit 26.6L, Mean Corpuscular Volume 84, Mean Corpuscular Hemoglobin 27.7, Mean Corpuscular Hemoglobin Concent 33.0, Red Cell Distribution Width 13.5, Platelet Count 229, Mean Platelet Volume 7.1, Neutrophils (%) (Auto) 77.5H, Lymphocytes ( %) (Auto) 16.5L, Monocytes (%) (Auto) 4.2, Eosinophils (%) (Auto) 1.4, Basophils (%) (Auto) 0.4, Sodium Level 136, Potassium Level 4.2, Chloride Level 105, Carbon Dioxide Level 24, Anion Gap 7, Blood Urea Nitrogen 9, Creatinine 0.9 , Estimat Glomerular Filtration Rate , Glucose Level 133H, Calcium Level 7.9L, Total Bilirubin 0.4, Aspartate Amino Transf (AST/SGOT) 23, Alanine Aminotransferase (ALT/SGPT) 13, Alkaline Phosphatase 110, Total Protein 6.9, Albumin 1.9L, Globulin 5.0, Albumin/Globulin Ratio 0.4L, Vancomycin Level Trough [Pending] Height (Feet): 5 Height (Inches): 3.00 Weight (Pounds): 116 Objective General Appearance: WD/WN, no apparent distress, awake, confused HEENT: normocephalic, atraumatic, PERRL, EOMI, supple, no JVD Neck: non-tender, normal alignment, supple Respiratory/Chest: chest wall non-tender, lungs clear, normal breath sounds, no respiratory distress, no accessory muscle use Cardiovascular/Chest: normal peripheral pulses, normal rate, regular rhythm, no gallop/murmur, no JVD Abdomen: non tender, soft, no organomegaly Extremities: no edema, no cyanosis Neurologic: disoriented Chago Lyons M.D. Sep 02, 2019 15:14
--- NOTE | 2019-09-02 15:51 | NUR ---
WEEKLY SWALLOW/SPEECH THERAPY SUMMARY: PATIENT SEEN FOR DYSPHAGIA, SEE SWALLOW EVALUATION REPORT. THE PATIENT WAS APPROVED BY DR. HANEY FOR A MODIFIED SWALLOW STUDY BUT UNABLE TO HAVE ONE TO DATE DUE TO SHE WAS NOT ALERT OR A SCHEDULE CONFLICT. THE PATIENT IS NOT ALERT TODAY FOR PO TRIALS FOR MODIFIED BARIUM SWALLOW STUDY GOALS ONLY VARIABLY MET FOR INTAKE (25, 50 MOSTLY AND SOMETIMES 75%). GOALS MET FOR NEW STAFF (EDINSON TORRES) EDUCATED/TRAINED IN POSTED ASPIRATION PRECAUTIONS. PLAN: CONTINUE WITH CURRENT LIQUIFIED PUREED LIKE NECTAR THICK LIQUIDS FOR NOW USING POSTED ASPIRATION PRECAUTIONS. 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
[2019-09-02 16:00] VITALS: BP 142/65
--- NOTE | 2019-09-02 19:50 | NUR ---
NURSE NOTES: Received pt from ISHAAN Arias. Pt asleep. Bed in lowest position. Call light within. Will continue to monitor.
[2019-09-02 20:00] VITALS: BP 117/54
[2019-09-03] VITALS: BP 131/63
--- NOTE | 2019-09-03 00:06 | NUR ---
HAND-OFF: Report given to ISHAAN Marsh. Pt stable.
--- NOTE | 2019-09-03 00:40 | NUR ---
NURSE NOTES: Received report from ISHAAN Saini. Patient brought to the unit from [facility] via bed, accompanied by 2 RN's. Patient is awake and responsive, breathing regular and unlabored with no s/s of SOB noted at this time. Patient is primarily [place]ian speaking. No c/o pain noted at this time. 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 Side-rails up x3, patient is on a P200 mattress. Patient arrived with a Buckner-catheter in place, intact and outputting clear, yellow urine. Assessed patient's skin, skin integrity is noted and pictured taken per protocol. Patient's IV is on the L Hand, 22G, patent, intact, and saline locked. All other needs attended to, bed is in lowest position, call light is within reach. Will continue to monitor.
[2019-09-03 04:00] VITALS: BP_SYST 145; BP_SYST 152; BP_DIAS 66; BP_DIAS 67
[2019-09-03] MEDS: Meropenem 500 MG in NS 55 ML IVPB SCH ×2 (04:35→16:51)
[2019-09-03] MEDS: NovoLOG Insulin Flexpen SUBQ SCH ×4 (06:30→22:08)
[2019-09-03 06:50] LABS: BASOPHILS % (AUTO) 0.4 % (0.0-2.0); HEMATOCRIT 27.4 % (37.0-47.0); HEMOGLOBIN 9.1 G/DL (12.0-16.0); LYMPHOCYTES % (AUTO) 12.7 % (20.0-45.0); MEAN CORPUSCULAR VOLUME 84 FL (80-99); MONOCYTES % (AUTO) 6.3 % (1.0-10.0); NEUTROPHILS % (AUTO) 79.6 % (45.0-75.0); PLATELET COUNT 247 K/UL (150-450); RED BLOOD COUNT 3.27 M/UL (4.20-5.40); RED CELL DISTRIBUTION WIDTH 13.6 % (11.6-14.8); WHITE BLOOD COUNT 14.2 K/UL (4.8-10.8)
--- NOTE | 2019-09-03 07:14 | NUR ---
HAND-OFF: Report given to ISHAAN Ordonez. Luisa in stable condition, plan of care endorsed.
[2019-09-03 07:17] LABS: ANION GAP 7 mmol/L (5-15); BLOOD UREA NITROGEN 8 mg/dL (7-18); CALCIUM 8.1 MG/DL (8.5-10.1); CARBON DIOXIDE 27 MMOL/L (21-32); CHLORIDE 101 MMOL/L (98-107); CREATININE 0.8 MG/DL (0.55-1.30); POTASSIUM 3.9 MMOL/L (3.5-5.1); SODIUM 135 MMOL/L (136-145)
[2019-09-03 08:00] VITALS: BP 137/64
--- NOTE | 2019-09-03 08:00 | NUR ---
NURSE NOTES: received pt in the bed, awake, confused, vital signs stable, no co pain, no SOB, skin warm and dry to touch, dressing dry and intact, tolerate diet well, feeder, bed in low position, call light within reach.
[2019-09-03] MEDS: Aspirin Baby 81mg ORAL SCH (08:16)
[2019-09-03] MEDS: Levodopa/Carbidopa 10/100 tab ORAL SCH ×3 (08:16→17:22)
[2019-09-03] MEDS ORDERED: Vancomycin 750 MG in NS 275 ML IVPB SCH (09:00)
--- NOTE | 2019-09-03 10:55 | Cardiac Electrophysiology PN ---
Assessment/Plan Assessment/Plan 1. Elevated troponin due to renal failure with creatinine 1.7. Troponins between 0.5 and 0.7. No CP and underlying left bundle-branch block. Echo Nl EF and no vegetations. On aspirin and beta-lisbeth, and off statin in view of rhabdomyolysis. 2. Hypertension. 3. LBBB and sinus dorian in 30s. Resolved off Lopressor 4. Nonsustained VT. 5. Heart failure. BNP of more than 24,000. Echocardiogram Nl EF. Could be HFpEF 6. Urinary tract infection, on IV antibiotic. 7. 4/4 Strep Bacteremia with WBC 25K. R/O endocarditis. ERIBERTO still pending 8. Renal failure. Creatinine of 1.7. 9. Uncontrolled diabetes DW RN Subjective Subjective Remained in SR with LBBB.No new events. Alert. ERIBERTO pending. Objective Last 24 Hour Vital Signs Date Time Temp Pulse Resp B/P (MAP) Pulse Ox O2 Delivery O2 Flow Rate FiO2 09/03/19 09:00 Room Air 09/03/19 08:17 84 137/64 09/03/19 08:00 98.2 84 18 137/64 (88) 97 09/03/19 08:00 83 09/03/19 04:00 98.5 89 19 152/67 (95) 97 09/03/19 04:00 85 09/03/19 00:00 98.2 84 19 131/63 (85) 97 09/03/19 00:00 81 09/02/19 20:00 80 09/02/19 20:00 Room Air 09/02/19 20:00 98.8 80 20 117/54 (75) 95 09/02/19 16:00 82 09/02/19 16:00 Room Air 09/02/19 16:00 98.1 85 20 142/65 (90) 93 09/02/19 12:00 84 09/02/19 12:00 Room Air 09/02/19 12:00 98.6 81 19 143/64 (90) 97 Intake and Output 09/02/19 09/03/19 19:00 07:00 Intake Total 250 ml Output Total 700 ml 400 ml Balance -450 ml -400 ml Intake Oral 250 ml Output Urine Total 700 ml 400 ml Laboratory Tests Test 09/03/19 05:59 White Blood Count 14.2 K/UL (4.8-10.8) H Red Blood Count 3.27 M/UL (4.20-5.40) L Hemoglobin 9.1 G/DL (12.0-16.0) L Hematocrit 27.4 % (37.0-47.0) L Mean Corpuscular Volume 84 FL (80-99) Mean Corpuscular Hemoglobin 27.9 PG (27.0-31.0) Mean Corpuscular Hemoglobin Concent 33.4 G/DL (32.0-36.0) Red Cell Distribution Width 13.6 % (11.6-14.8) Platelet Count 247 K/UL (150-450) Mean Platelet Volume 7.3 FL (6.5-10.1) Neutrophils (%) (Auto) 79.6 % (45.0-75.0) H Lymphocytes (%) (Auto) 12.7 % (20.0-45.0) L Monocytes (%) (Auto) 6.3 % (1.0-10.0) Eosinophils (%) (Auto) 1.0 % (0.0-3.0) Basophils (%) (Auto) 0.4 % (0.0-2.0) Sodium Level 135 MMOL/L (136-145) L Potassium Level 3.9 MMOL/L (3.5-5.1) Chloride Level 101 MMOL/L (98-107) Carbon Dioxide Level 27 MMOL/L (21-32) Anion Gap 7 mmol/L (5-15) Blood Urea Nitrogen 8 mg/dL (7-18) Creatinine 0.8 MG/DL (0.55-1.30) Estimat Glomerular Filtration Rate mL/min (>60) Glucose Level 106 MG/DL (74-106) Calcium Level 8.1 MG/DL (8.5-10.1) L Objective HEAD AND NECK: No JVD LUNGS: Clear. CARDIOVASCULAR: Regular S1 and S2 with no gallop or murmur. ABDOMEN: Soft. EXTREMITIES: No pitting edema. Luis Purdy MD Sep 03, 2019 10:55
--- NOTE | 2019-09-03 10:56 | General Progress Note ---
Assessment/Plan Problem List: (1) Bacteremia due to group B Streptococcus ICD Codes: R78.81 - Bacteremia SNOMED: 444365456205 (2) Severe sepsis ICD Codes: A41.9 - Sepsis, unspecified organism; R65.20 - Severe sepsis without septic shock SNOMED: 46819550 (3) Toxic metabolic encephalopathy ICD Codes: G92 - Toxic encephalopathy SNOMED: 466244944 (4) Diabetes mellitus with hyperglycemia ICD Codes: E11.65 - Type 2 diabetes mellitus with hyperglycemia SNOMED: 81187389, 09864070 (5) OWEN (acute kidney injury) ICD Codes: N17.9 - Acute kidney failure, unspecified SNOMED: 2946508, 08365869 (6) NSTEMI (non-ST elevated myocardial infarction) ICD Codes: I21.4 - Non-ST elevation (NSTEMI) myocardial infarction SNOMED: 43069916, 061002377 (7) Urinary tract infection due to ESBL Klebsiella ICD Codes: N39.0 - Urinary tract infection, site not specified; B96.89 - Other specified bacterial agents as the cause of diseases classified elsewhere SNOMED: 680884836, 187701495768182 (8) Suspected acute on chronic CHF (9) Decubitus skin ulcer ICD Codes: L89.90 - Pressure ulcer of unspecified site, unspecified stage SNOMED: 179100012 (10) ATN (acute tubular necrosis) ICD Codes: N17.0 - Acute kidney failure with tubular necrosis SNOMED: 58949013 (11) Parkinson disease ICD Codes: G20 - Parkinson disease SNOMED: 13919373 (12) Bedbug bite ICD Codes: W57.XXXA - Bitten or stung by nonvenomous insect and other nonvenomous arthropods, initial encounter SNOMED: 652875389 (13) Hypernatremia ICD Codes: E87.0 - Hyperosmolality and hypernatremia SNOMED: 168520636 (14) Hypokalemia ICD Codes: E87.6 - Hypokalemia SNOMED: 88368736 Status: stable Assessment/Plan: 84-year-old lady from [facility] with history of hypertension, uncontrolled diabetes, and Parkinson disease, who was brought to the emergency room by family member for altered mental status and weakness. Found to have severe sepsis due to ESBL UTI, groub b strep bacteremia, ?endocarditis, OWEN vs OWEN on CKD and NSTEMI. Heart failure. BNP of more than 24,000. Echocardiogram Nl EF. ?HFpEF. developed hypernatremia. Hypokalemia, poor po intake Plan: - PCU level of care - cardiology consult appreciated - heparin gtt per acs protocol, DC per cards, no chest pain, stable troponin. Continue ASA, beta lisbeth (Lopressor 25), hold off on statin due to rhabdomyolysis. Decreased Lopressor to 12.5 mg bid due to low heart rate, eventually had to stop due to bradycardia on 08/29 - trend tn/ekg - TTE, normal EF, no vegetations, in view of strep bacteremia in 11/08 bottles, needs a ERIBERTO to r/o endocarditis. -surveillance cultures negative -monitor serum sodium, replace k - ID consult appeciated - c/w empiric vanco/zosyn, switched to meropenem based on sensitivities . Now Meropenem and vancomycin day 12 - follow urine and blood cx's. 11/08 strep bacteremia with wbc 25k--> now 12, repeat blood cultures no growth to date - c/w PD regimen - A1c 9-->insulin sliding scale ac/hs, change to resistant scale, fsbg controlled - supportive care - delirium precautions -d/w ID -discuss goal of care with family, grand daughter [phone], unable to reach. I have asked RN to page me when family at bedside Time of this note may not reflect the time of the clinical encounter. Subjective Date patient seen: Sep 04, 2019 ROS Limited/Unobtainable: Yes Allergies: Coded Allergies: No Known Allergies (Unverified , 10/23/13) Subjective poor historian. following up for severe sepsis, group b strep bacteremia, ? endocarditis, ESBL UTI, OWEN, NSTEMI. Denies any chest pain or sob, alert and awake, follow simple commands. tele reviewed. SR at 30's , LBBB, episodes of vtach. renal function trending down. Per RN bedbugs found in her bed. ERIBERTO pending , wbc trending up, d/w ID Objective Last 24 Hour Vital Signs Date Time Temp Pulse Resp B/P (MAP) Pulse Ox O2 Delivery O2 Flow Rate FiO2 09/03/19 09:00 Room Air 09/03/19 08:17 84 137/64 09/03/19 08:00 98.2 84 18 137/64 (88) 97 09/03/19 08:00 83 09/03/19 04:00 98.5 89 19 152/67 (95) 97 09/03/19 04:00 85 09/03/19 00:00 98.2 84 19 131/63 (85) 97 09/03/19 00:00 81 09/02/19 20:00 80 09/02/19 20:00 Room Air 09/02/19 20:00 98.8 80 20 117/54 (75) 95 09/02/19 16:00 82 09/02/19 16:00 Room Air 09/02/19 16:00 98.1 85 20 142/65 (90) 93 09/02/19 12:00 84 09/02/19 12:00 Room Air 09/02/19 12:00 98.6 81 19 143/64 (90) 97 Intake and Output 09/02/19 09/03/19 19:00 07:00 Intake Total 250 ml Output Total 700 ml 400 ml Balance -450 ml -400 ml Intake Oral 250 ml Output Urine Total 700 ml 400 ml Laboratory Tests 09/03/19 05:59: White Blood Count 14.2H, Red Blood Count 3.27L, Hemoglobin 9.1L, Hematocrit 27.4L, Mean Corpuscular Volume 84, Mean Corpuscular Hemoglobin 27.9, Mean Corpuscular Hemoglobin Concent 33.4, Red Cell Distribution Width 13.6, Platelet Count 247, Mean Platelet Volume 7.3, Neutrophils (%) (Auto) 79.6H, Lymphocytes ( %) (Auto) 12.7L, Monocytes (%) (Auto) 6.3, Eosinophils (%) (Auto) 1.0, Basophils (%) (Auto) 0.4, Sodium Level 135L, Potassium Level 3.9, Chloride Level 101, Carbon Dioxide Level 27, Anion Gap 7, Blood Urea Nitrogen 8, Creatinine 0.8, Estimat Glomerular Filtration Rate , Glucose Level 106, Calcium Level 8.1L Height (Feet): 5 Height (Inches): 3.00 Weight (Pounds): 116 Objective General Appearance: WD/WN, no apparent distress, awake, confused HEENT: normocephalic, atraumatic, PERRL, EOMI, supple, no JVD Neck: non-tender, normal alignment, supple Respiratory/Chest: chest wall non-tender, lungs clear, normal breath sounds, no respiratory distress, no accessory muscle use Cardiovascular/Chest: normal peripheral pulses, normal rate, regular rhythm, no gallop/murmur, no JVD Abdomen: non tender, soft, no organomegaly Extremities: no edema, no cyanosis Neurologic: disoriented Chago Lyons M.D. Sep 03, 2019 10:56
[2019-09-03 12:00] VITALS: BP 123/86
--- NOTE | 2019-09-03 12:54 | Surgery Progress Note ---
Surgery Progress Note Subjective Additional Comments no acute events comfortable stable leukocytosis fluctuating discussed with medical team Objective Last 24 Hour Vital Signs Date Time Temp Pulse Resp B/P (MAP) Pulse Ox O2 Delivery O2 Flow Rate FiO2 09/03/19 12:21 98.2 09/03/19 12:00 91 09/03/19 12:00 98.2 82 18 123/86 (98) 100 09/03/19 09:00 Room Air 09/03/19 08:17 84 137/64 09/03/19 08:00 98.2 84 18 137/64 (88) 97 09/03/19 08:00 83 09/03/19 04:00 98.5 89 19 152/67 (95) 97 09/03/19 04:00 85 09/03/19 00:00 98.2 84 19 131/63 (85) 97 09/03/19 00:00 81 09/02/19 20:00 80 09/02/19 20:00 Room Air 09/02/19 20:00 98.8 80 20 117/54 (75) 95 09/02/19 16:00 82 09/02/19 16:00 Room Air 09/02/19 16:00 98.1 85 20 142/65 (90) 93 I&O Intake and Output 09/02/19 09/03/19 19:00 07:00 Intake Total 250 ml Output Total 700 ml 400 ml Balance -450 ml -400 ml Intake Oral 250 ml Output Urine Total 700 ml 400 ml Dressing: other Wound: other Drains: other Cardiovascular: RSR Respiratory: decreased breath sounds Abdomen: soft, present bowel sounds Extremities: no cyanosis, other Laboratory Tests Test 09/03/19 05:59 White Blood Count 14.2 K/UL (4.8-10.8) H Red Blood Count 3.27 M/UL (4.20-5.40) L Hemoglobin 9.1 G/DL (12.0-16.0) L Hematocrit 27.4 % (37.0-47.0) L Mean Corpuscular Volume 84 FL (80-99) Mean Corpuscular Hemoglobin 27.9 PG (27.0-31.0) Mean Corpuscular Hemoglobin Concent 33.4 G/DL (32.0-36.0) Red Cell Distribution Width 13.6 % (11.6-14.8) Platelet Count 247 K/UL (150-450) Mean Platelet Volume 7.3 FL (6.5-10.1) Neutrophils (%) (Auto) 79.6 % (45.0-75.0) H Lymphocytes (%) (Auto) 12.7 % (20.0-45.0) L Monocytes (%) (Auto) 6.3 % (1.0-10.0) Eosinophils (%) (Auto) 1.0 % (0.0-3.0) Basophils (%) (Auto) 0.4 % (0.0-2.0) Sodium Level 135 MMOL/L (136-145) L Potassium Level 3.9 MMOL/L (3.5-5.1) Chloride Level 101 MMOL/L (98-107) Carbon Dioxide Level 27 MMOL/L (21-32) Anion Gap 7 mmol/L (5-15) Blood Urea Nitrogen 8 mg/dL (7-18) Creatinine 0.8 MG/DL (0.55-1.30) Estimat Glomerular Filtration Rate mL/min (>60) Glucose Level 106 MG/DL (74-106) Calcium Level 8.1 MG/DL (8.5-10.1) L Plan Problems: (1) Decubitus skin ulcer Assessment & Plan: Pt presented on admission with multiple pressure injuries. DTPI Sacrum (L)10cm x (W)9cm with small slit at sacrococcygeal area(L)0.5cm- small amt sanguineous exudate noted.Base of wound is maroon and indurated. Two Unstageable pressure injuries in close proximity noted to L hip. Base of each wound is necrotic and soft with marginal erythema.(L)2cm x (W)3.7cm NO erythema or odor noted. Historical Scar noted at L hip in close proximity to wound. L heel boggy with non-blanching erythema.(L)4cm x (W)4.5cm R heel boggy with non-blanching erythema.(L)5cm x (W)6cm. Pt noted to have several small black droppings in bed. Upon further inspection. Single small brownish bug observed crawling in bed. At posterior aspect of neck pt noted to have macular red rash.Red rash also noted to L axilla .Complete bed Bath provided.And all bed linen removed and mattress sanitized. EVS was notified by Primary nurse. Tx.plan: Apply Moisture Barrier Paste to Sacrum. Cover with Optifoam drsg. Change every 3 days and prn. Cleanse L hip with Saline. Apply Therahoney. Apply Cavilon Skin Barrier periwound.Cover with Optifoam drsg. Change every 3 days and prn. Apply Cavilon Skin Barrier to both heels. Cover each heel with Optifoam drsg. Change every 7 days and prn. APM/YURIY mattress overlay. Reposition at least every 2hours or as tolerated. Off-load heels with pillow. (2) Sepsis Assessment & Plan: Leukocytosis, abnormal labs, tachycardic, per report fevers UA identified urosepsis bacteremic leukocytosis persistent anemia fevers resolved On antibiotics as per infectious disease Trend labs Okay for diet A.m. labs Wounds unlikely etiology of sepsis as they are chronic and do not look actively infected discussed with medical teams cont abx We will follow with recommendations thank you for let me participate in patient' s care Darrius Miller Sep 03, 2019 12:54
--- NOTE | 2019-09-03 14:05 | NUR ---
RD ASSESSMENT & RECOMMENDATIONS SEE CARE ACTIVITY FOR COMPLETE ASSESSMENT DAILY ESTIMATED NEEDS: Needs based on Wounds, DM 49kg 30-35 kcals/kg 6703-2183 total kcals 1.25-2 g protein/kg 61-98 g total protein 25-30ml/kcal mL/kg 2589-2527 total fluid mLs NUTRITION DIAGNOSIS: Increased kcal and pro needs r/t wound healing as evidenced by pt w/ multiple areas of skin breakdown including unstageable L hip wounds x2, refer to WC eval for full assessment. CURRENT DIET: Regular liq puree HTL + glucerna PO DIET RECOMMENDATIONS: Continue liberalized Regular diet/ texture per PROGRAM OFFICER ENTERAL NUTRITION RECOMMENDATIONS: * Consult RD for TF recs w/ poor po intake * ADDITIONAL RECOMMENDATIONS: 1) Glucerna TID; w/ poor po intake of meals rec Ensure Enlive TID 2) Monitor BG, need for increased hypoglycemics 3) Wound care: if tolerated ANTONIA Fruit Punch BID + Vit C 250mg BID + MVI w/ min qDaily 4) Calibrated bed scale wts daily 5) REC NON ORAL FEEDS W/ CONTINUED POOR PO INTAKE 6) Replete lytes as needed
[2019-09-03 16:00] VITALS: BP 102/84
--- NOTE | 2019-09-03 19:29 | NUR ---
HAND-OFF: Report given to BACOS RN,no distress at this time.
--- NOTE | 2019-09-03 19:30 | NUR ---
NURSE NOTES: Received patient from ISHAAN Ordonez, patient in stable condition, AOx1, able to make needs known to a degree, denies pain, IV on right wrist, asymtpomatic, F/c draining to gravity,intact, bed low&locked, side rails upx3, call light within reach , will continue to monitor and reassess
[2019-09-03 20:00] VITALS: BP 110/57
--- NOTE | 2019-09-03 20:49 | Infectious Diseases Prog Note ---
Assessment/Plan Assessment/Plan ASSESSMENT AND PLAN: 1. streptococcus agalactiae - group b bacteremia, ? endocarditis, esbl e.coli uti, sirs, leukocytosis - meropenem and vancomycin - day # 11 antibiotics - ERIBERTO planned - f/u blood cultures negative, monitor labs - surveillance cultures ordered for worsening leukocytosis 2. Acute kidney injury with elevated creatinine. 3. History of diabetes. 4. weakness 5. Blood pressure treatment per primary care team and diabetes treatment per primary care team and consultants. 6. Parkinson's. 7. Dementia. 8. The patient does have also elevated troponin. Cardiology follow-up. 9. MAR was noted. 10. Case was discussed with RN. 11. No known allergies. 12. Social history is negative. 13. Family history is noncontributory. 14. Continue treatment per primary consultants. 15. Orders were noted and entered. Subjective Constitutional: Denies: fever HEENT: Denies: congestion Respiratory: Denies: shortness of breath Cardiovascular: Denies: chest pain Gastrointestinal/Abdominal: Denies: nausea, vomiting, diarrhea Genitourinary: Reports: other - + arnold Neurologic: Denies: headache Psychiatric: Denies: depression Skin: Denies: rash Hematologic: Denies: bleeding Musculoskeletal: Denies: pain Allergies: Coded Allergies: No Known Allergies (Unverified , 10/23/13) Objective Vital Signs Last 24 Hour Vital Signs Date Time Temp Pulse Resp B/P (MAP) Pulse Ox O2 Delivery O2 Flow Rate FiO2 09/03/19 16:00 76 09/03/19 16:00 98.1 72 20 102/84 (90) 96 09/03/19 12:21 98.2 09/03/19 12:00 91 09/03/19 12:00 98.2 82 18 123/86 (98) 100 09/03/19 09:00 Room Air 09/03/19 08:17 84 137/64 09/03/19 08:00 98.2 84 18 137/64 (88) 97 09/03/19 08:00 83 09/03/19 04:00 98.5 89 19 152/67 (95) 97 09/03/19 04:00 85 09/03/19 00:00 98.2 84 19 131/63 (85) 97 09/03/19 00:00 81 Height (Feet): 5 Height (Inches): 3.00 Weight (Pounds): 116 General Appearance: no acute distress HEENT: normocephalic, atraumatic, anicteric, mucous membranes moist Respiratory/Chest: lungs clear, normal breath sounds, no respiratory distress Cardiovascular: normal rate, regular rhythm, no gallop/murmur, no JVD Abdomen: normal bowel sounds, soft, non tender, no organomegaly, non distended Genitourinary: other - + arnold - urine slt cloudy Extremities: no cyanosis Skin: no rash Neurologic/Psychiatric: sliver chopper II-XII grossly normal, 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 Pleural space: Unremarkable. No pneumothorax. Heart: Borderline cardiomegaly, potentially exaggerated by portable technique. Mediastinum: Calcified aorta. Bones/joints: Osteopenia. Degenerative changes. IMPRESSION: Mild vascular congestion Microbiology Date/Time Source Procedure Growth Status 08/26/19 03:50 Blood Blood Culture - Final NO GROWTH AFTER 5 DAYS Complete 08/24/19 14:25 Urine,Clean Catch Urine Culture - Final Escherichia Coli - Esbl Complete Laboratory Tests Test 09/03/19 05:59 White Blood Count 14.2 K/UL (4.8-10.8) H Red Blood Count 3.27 M/UL (4.20-5.40) L Hemoglobin 9.1 G/DL (12.0-16.0) L Hematocrit 27.4 % (37.0-47.0) L Mean Corpuscular Volume 84 FL (80-99) Mean Corpuscular Hemoglobin 27.9 PG (27.0-31.0) Mean Corpuscular Hemoglobin Concent 33.4 G/DL (32.0-36.0) Red Cell Distribution Width 13.6 % (11.6-14.8) Platelet Count 247 K/UL (150-450) Mean Platelet Volume 7.3 FL (6.5-10.1) Neutrophils (%) (Auto) 79.6 % (45.0-75.0) H Lymphocytes (%) (Auto) 12.7 % (20.0-45.0) L Monocytes (%) (Auto) 6.3 % (1.0-10.0) Eosinophils (%) (Auto) 1.0 % (0.0-3.0) Basophils (%) (Auto) 0.4 % (0.0-2.0) Sodium Level 135 MMOL/L (136-145) L Potassium Level 3.9 MMOL/L (3.5-5.1) Chloride Level 101 MMOL/L (98-107) Carbon Dioxide Level 27 MMOL/L (21-32) Anion Gap 7 mmol/L (5-15) Blood Urea Nitrogen 8 mg/dL (7-18) Creatinine 0.8 MG/DL (0.55-1.30) Estimat Glomerular Filtration Rate mL/min (>60) Glucose Level 106 MG/DL (74-106) Calcium Level 8.1 MG/DL (8.5-10.1) L Current Medications Medications (Trade) Dose Ordered Sig/Krystin Route PRN Reason Start Time Stop Time Status Last Admin Dose Admin Acetaminophen (Tylenol) 650 mg Q4H PRN ORAL Mild Pain/Temp > 100.5 09/03/19 00:45 09/24/19 12:44 09/03/19 11:51 Amlodipine Besylate (Norvasc) 5 mg DAILY ORAL 09/03/19 09:00 09/28/19 08:59 09/03/19 08:17 Aspirin (ASA) 81 mg DAILY ORAL 09/03/19 09:00 09/24/19 08:59 09/03/19 08:16 Carbidopa/Levodopa (Sinemet 10/100) 1 tab THREE TIMES A DAY ORAL 09/03/19 09:00 09/24/19 08:59 09/03/19 17:22 Dextrose (Dextrose 50%) 25 ml Q30M PRN IV Hypoglycemia 09/03/19 00:15 09/23/19 19:14 Dextrose (Dextrose 50%) 50 ml Q30M PRN IV Hypoglycemia 09/03/19 00:15 09/23/19 19:14 Insulin Aspart (NovoLOG) BEFORE MEALS AND HS SUBQ 09/03/19 06:30 09/29/19 20:59 09/03/19 16:53 Meropenem 500 mg/ Sodium Chloride 55 ml @ 110 mls/hr Q12HR@0400,1600 IVPB 09/04/19 04:00 09/05/19 23:59 UNV Vancomycin HCl (Vanco rx to dose) 1 ea DAILY PRN MISC Per rx protocol 09/03/19 20:45 09/24/19 19:14 UNV Vancomycin HCl 750 mg/Sodium Chloride 275 ml @ 183.333 mls/hr Q24H IVPB 09/04/19 09:00 09/05/19 08:59 UNV Gerardo Toledo MD Sep 03, 2019 20:49
[2019-09-04] VITALS: BP 124/52
[2019-09-04 04:00] VITALS: BP 117/79
[2019-09-04] MEDS: Meropenem 500 MG in NS 55 ML IVPB SCH ×2 (05:00→16:22)
[2019-09-04] MEDS: NovoLOG Insulin Flexpen SUBQ SCH ×4 (06:30→21:00)
[2019-09-04 07:30] LABS: BASOPHILS % (AUTO) 0.8 % (0.0-2.0); EOSINOPHILS % (AUTO) 1.4 % (0.0-3.0); HEMATOCRIT 25.7 % (37.0-47.0); HEMOGLOBIN 8.5 G/DL (12.0-16.0); LYMPHOCYTES % (AUTO) 12.5 % (20.0-45.0); MEAN CORPUSCULAR VOLUME 84 FL (80-99); MONOCYTES % (AUTO) 5.8 % (1.0-10.0); NEUTROPHILS % (AUTO) 79.5 % (45.0-75.0); PLATELET COUNT 278 K/UL (150-450); RED BLOOD COUNT 3.06 M/UL (4.20-5.40); RED CELL DISTRIBUTION WIDTH 13.3 % (11.6-14.8); WHITE BLOOD COUNT 14.9 K/UL (4.8-10.8)
[2019-09-04 07:36] LABS: ALANINE AMINOTRANSFERASE 13 U/L (12-78); ALBUMIN/GLOBULIN RATIO 0.4 (1.0-2.7); ALKALINE PHOSPHATASE 108 U/L (46-116); ANION GAP 10 mmol/L (5-15); ASPARTATE AMINO TRANSFERASE 18 U/L (15-37); BILIRUBIN,TOTAL 0.5 MG/DL (0.2-1.0); BLOOD UREA NITROGEN 8 mg/dL (7-18); CARBON DIOXIDE 27 MMOL/L (21-32); CHLORIDE 101 MMOL/L (98-107); POTASSIUM 3.9 MMOL/L (3.5-5.1); SODIUM 138 MMOL/L (136-145)
--- NOTE | 2019-09-04 07:53 | NUR ---
HAND-OFF: Report given to ISHAAN Howard, patient in stable codition, plan of care endorsed.
[2019-09-04 08:00] VITALS: BP 140/78
--- NOTE | 2019-09-04 08:00 | NUR ---
NURSE NOTES: Patient stable AOx1, patient only responds to name and follows some commands. No s/sx of distress. RR even and unlabored on RA. IV fluids infusing. Side rails upx2, call light within reach, bed low and locked. Will continue to monitor.
[2019-09-04] MEDS: Vancomycin 750 MG in NS 275 ML IVPB SCH (09:12)
[2019-09-04] MEDS: Levodopa/Carbidopa 10/100 tab ORAL SCH ×3 (09:12→17:21)
[2019-09-04] MEDS: Aspirin Baby 81mg ORAL SCH (09:12)
--- NOTE | 2019-09-04 09:12 | General Progress Note ---
Assessment/Plan Problem List: (1) Bacteremia due to group B Streptococcus ICD Codes: R78.81 - Bacteremia SNOMED: 081731245704 (2) Severe sepsis ICD Codes: A41.9 - Sepsis, unspecified organism; R65.20 - Severe sepsis without septic shock SNOMED: 37746299 (3) Toxic metabolic encephalopathy ICD Codes: G92 - Toxic encephalopathy SNOMED: 603824272 (4) Diabetes mellitus with hyperglycemia ICD Codes: E11.65 - Type 2 diabetes mellitus with hyperglycemia SNOMED: 90056076, 46412462 (5) OWEN (acute kidney injury) ICD Codes: N17.9 - Acute kidney failure, unspecified SNOMED: 2429965, 79281845 (6) NSTEMI (non-ST elevated myocardial infarction) ICD Codes: I21.4 - Non-ST elevation (NSTEMI) myocardial infarction SNOMED: 06556489, 080525397 (7) Urinary tract infection due to ESBL Klebsiella ICD Codes: N39.0 - Urinary tract infection, site not specified; B96.89 - Other specified bacterial agents as the cause of diseases classified elsewhere SNOMED: 857656216, 829667865666951 (8) Suspected acute on chronic CHF (9) Decubitus skin ulcer ICD Codes: L89.90 - Pressure ulcer of unspecified site, unspecified stage SNOMED: 681272302 (10) ATN (acute tubular necrosis) ICD Codes: N17.0 - Acute kidney failure with tubular necrosis SNOMED: 64752134 (11) Parkinson disease ICD Codes: G20 - Parkinson disease SNOMED: 14593345 (12) Bedbug bite ICD Codes: W57.XXXA - Bitten or stung by nonvenomous insect and other nonvenomous arthropods, initial encounter SNOMED: 495206459 (13) Hypernatremia ICD Codes: E87.0 - Hyperosmolality and hypernatremia SNOMED: 716261656 (14) Hypokalemia ICD Codes: E87.6 - Hypokalemia SNOMED: 84202496 Status: stable Assessment/Plan: 84-year-old lady from [facility] with history of hypertension, uncontrolled diabetes, and Parkinson disease, who was brought to the emergency room by family member for altered mental status and weakness. Found to have severe sepsis due to ESBL UTI, groub b strep bacteremia, ?endocarditis, OWEN vs OWEN on CKD and NSTEMI. Heart failure. BNP of more than 24,000. Echocardiogram Nl EF. ?HFpEF. developed hypernatremia. Hypokalemia, poor po intake Plan: - PCU level of care - cardiology consult appreciated - heparin gtt per acs protocol, DC per cards, no chest pain, stable troponin. Continue ASA, beta lisbeth (Lopressor 25), hold off on statin due to rhabdomyolysis. Decreased Lopressor to 12.5 mg bid due to low heart rate, eventually had to stop due to bradycardia on 08/29 - trend tn/ekg - TTE, normal EF, no vegetations, in view of strep bacteremia in 11/08 bottles, needs a ERIBERTO to r/o endocarditis, per Id alternatively can treat empirically -surveillance cultures negative -monitor serum sodium, replace k - ID consult appeciated - c/w empiric vanco/zosyn, switched to meropenem based on sensitivities . Now Meropenem and vancomycin day 12, persistent leukocytosis, CT abdomen pelvis ordered - follow urine and blood cx's. 11/08 strep bacteremia with wbc 25k--> now 14, repeat blood cultures no growth to date - c/w PD regimen - A1c 9-->insulin sliding scale ac/hs, change to resistant scale, fsbg controlled - supportive care - delirium precautions -d/w ID -discuss goal of care with family, grand daughter [phone], unable to reach. I have asked RN to page me when family at bedside Time of this note may not reflect the time of the clinical encounter. Subjective Date patient seen: Sep 04, 2019 ROS Limited/Unobtainable: Yes Allergies: Coded Allergies: No Known Allergies (Unverified , 10/23/13) Subjective poor historian. following up for severe sepsis, group b strep bacteremia, ? endocarditis, ESBL UTI, OWEN, NSTEMI. Denies any chest pain or sob, alert and awake, follow simple commands. tele reviewed. SR at 30's , LBBB, episodes of vtach. renal function trending down. Per RN bedbugs found in her bed. ERIBERTO pending , wbc trending up, d/w ID Objective Last 24 Hour Vital Signs Date Time Temp Pulse Resp B/P (MAP) Pulse Ox O2 Delivery O2 Flow Rate FiO2 1/29/20 04:00 97.5 69 20 117/79 (92) 97 09/04/19 04:00 91 09/04/19 00:00 97.9 84 20 124/52 (76) 95 09/04/19 00:00 82 09/03/19 21:00 Room Air 09/03/19 20:00 98.4 72 18 110/57 (74) 99 09/03/19 20:00 76 09/03/19 16:00 76 09/03/19 16:00 98.1 72 20 102/84 (90) 96 09/03/19 12:21 98.2 09/03/19 12:00 91 09/03/19 12:00 98.2 82 18 123/86 (98) 100 Intake and Output 09/03/19 09/04/19 18:59 06:59 Intake Total 590.000 ml Output Total 1000 ml Balance -410.000 ml Intake Oral 260 ml IV Total 330.000 ml Output Urine Total 1000 ml Laboratory Tests 09/04/19 06:31: White Blood Count 14.9H, Red Blood Count 3.06L, Hemoglobin 8.5L, Hematocrit 25.7L, Mean Corpuscular Volume 84, Mean Corpuscular Hemoglobin 27.9, Mean Corpuscular Hemoglobin Concent 33.2, Red Cell Distribution Width 13.3, Platelet Count 278, Mean Platelet Volume 6.7, Neutrophils (%) (Auto) 79.5H, Lymphocytes ( %) (Auto) 12.5L, Monocytes (%) (Auto) 5.8, Eosinophils (%) (Auto) 1.4, Basophils (%) (Auto) 0.8, Erythrocyte Sedimentation Rate [Pending], Sodium Level 138, Potassium Level 3.9, Chloride Level 101, Carbon Dioxide Level 27, Anion Gap 10, Blood Urea Nitrogen 8, Creatinine 1.0, Estimat Glomerular Filtration Rate , Glucose Level 144H, Calcium Level 8.0L, Total Bilirubin 0.5, Aspartate Amino Transf (AST/SGOT) 18, Alanine Aminotransferase (ALT/SGPT) 13, Alkaline Phosphatase 108, C-Reactive Protein, Quantitative 13.3H, Total Protein 7.2, Albumin 2.0L, Globulin 5.2, Albumin/Globulin Ratio 0.4L Height (Feet): 5 Height (Inches): 3.00 Weight (Pounds): 109 Objective General Appearance: WD/WN, no apparent distress, awake, confused HEENT: normocephalic, atraumatic, PERRL, EOMI, supple, no JVD Neck: non-tender, normal alignment, supple Respiratory/Chest: chest wall non-tender, lungs clear, normal breath sounds, no respiratory distress, no accessory muscle use Cardiovascular/Chest: normal peripheral pulses, normal rate, regular rhythm, no gallop/murmur, no JVD Abdomen: non tender, soft, no organomegaly Extremities: no edema, no cyanosis Neurologic: disoriented Chago Lyons M.D. Sep 04, 2019 09:12
--- NOTE | 2019-09-04 09:33 | Diagnostic Imaging Report ---
Indication: Cough Technique: One view of the chest Comparison: 08/24/2019 Findings: There is increased interstitial edema. There is evidence of left perihilar airspace disease There is suggestion of trace bilateral pleural effusions. The heart size is upper limits normal. Impression: Increased interstitial edema, since prior exam 08/24/2019 Suspect left perihilar consolidation Small bilateral pleural effusions
--- NOTE | 2019-09-04 10:22 | NUR ---
CASE MANAGEMENT:REVIEW 09/04/19 SI: SEPSIS D/T BACTEREMIA ENCEPHALOPATHY. NSTEMI 96.6 80 18 140/78 97% ON RA WBC+14.9 H/H-8.5/25.7 IS: IV VANCOMYCIN Q24 IV MEROPENEM Q12 NORVASC PO QD ASA PO QD : TELEMETRY STATUS DCP: FROM HOME
[2019-09-04 12:00] VITALS: BP 110/54
--- NOTE | 2019-09-04 14:12 | Cardiac Electrophysiology PN ---
Assessment/Plan Assessment/Plan 1. Elevated troponin due to renal failure with creatinine 1.7. Troponins between 0.5 and 0.7. No CP and underlying left bundle-branch block. Echo Nl EF and no vegetations. On aspirin and beta-lisbeth, and off statin in view of rhabdomyolysis. 2. Hypertension. 3. LBBB and sinus dorian in 30s. Resolved off Lopressor 4. Nonsustained VT. 5. Heart failure. BNP of more than 24,000. Echocardiogram Nl EF. Could be HFpEF 6. Urinary tract infection, on IV antibiotic. 7. 4/4 Strep Bacteremia with WBC 25K. R/O endocarditis. ERIBERTO scheduled for Monday by Dr New 8. Renal failure. Creatinine of 1.7. 9. Uncontrolled diabetes DW RN Subjective Subjective Remained in SR with LBBB.No new events. ERIBERTO scheduled for Monday09/09/19 Objective Last 24 Hour Vital Signs Date Time Temp Pulse Resp B/P (MAP) Pulse Ox O2 Delivery O2 Flow Rate FiO2 09/04/19 12:00 100.4 83 18 110/54 (72) 97 09/04/19 09:12 80 140/78 09/04/19 09:00 Room Air 09/04/19 08:00 98 09/04/19 08:00 96.6 80 18 140/78 (98) 97 09/04/19 04:00 97.5 69 20 117/79 (92) 97 09/04/19 04:00 91 09/04/19 00:00 97.9 84 20 124/52 (76) 95 09/04/19 00:00 82 09/03/19 21:00 Room Air 09/03/19 20:00 98.4 72 18 110/57 (74) 99 09/03/19 20:00 76 09/03/19 16:00 76 09/03/19 16:00 98.1 72 20 102/84 (90) 96 Intake and Output 09/03/19 09/04/19 19:00 07:00 Intake Total 590.000 ml Output Total 1000 ml Balance -410.000 ml Intake Oral 260 ml IV Total 330.000 ml Output Urine Total 1000 ml Laboratory Tests Test 09/04/19 06:31 White Blood Count 14.9 K/UL (4.8-10.8) H Red Blood Count 3.06 M/UL (4.20-5.40) L Hemoglobin 8.5 G/DL (12.0-16.0) L Hematocrit 25.7 % (37.0-47.0) L Mean Corpuscular Volume 84 FL (80-99) Mean Corpuscular Hemoglobin 27.9 PG (27.0-31.0) Mean Corpuscular Hemoglobin Concent 33.2 G/DL (32.0-36.0) Red Cell Distribution Width 13.3 % (11.6-14.8) Platelet Count 278 K/UL (150-450) Mean Platelet Volume 6.7 FL (6.5-10.1) Neutrophils (%) (Auto) 79.5 % (45.0-75.0) H Lymphocytes (%) (Auto) 12.5 % (20.0-45.0) L Monocytes (%) (Auto) 5.8 % (1.0-10.0) Eosinophils (%) (Auto) 1.4 % (0.0-3.0) Basophils (%) (Auto) 0.8 % (0.0-2.0) Erythrocyte Sedimentation Rate 121 MM/HR (0-30) H Sodium Level 138 MMOL/L (136-145) Potassium Level 3.9 MMOL/L (3.5-5.1) Chloride Level 101 MMOL/L (98-107) Carbon Dioxide Level 27 MMOL/L (21-32) Anion Gap 10 mmol/L (5-15) Blood Urea Nitrogen 8 mg/dL (7-18) Creatinine 1.0 MG/DL (0.55-1.30) Estimat Glomerular Filtration Rate mL/min (>60) Glucose Level 144 MG/DL (74-106) H Calcium Level 8.0 MG/DL (8.5-10.1) L Total Bilirubin 0.5 MG/DL (0.2-1.0) Aspartate Amino Transf (AST/SGOT) 18 U/L (15-37) Alanine Aminotransferase (ALT/SGPT) 13 U/L (12-78) Alkaline Phosphatase 108 U/L (46-116) C-Reactive Protein, Quantitative 13.3 mg/dL (0.00-0.90) H Total Protein 7.2 G/DL (6.4-8.2) Albumin 2.0 G/DL (3.4-5.0) L Globulin 5.2 g/dL Albumin/Globulin Ratio 0.4 (1.0-2.7) L Objective HEAD AND NECK: No JVD LUNGS: Clear. CARDIOVASCULAR: Regular S1 and S2 with no gallop or murmur. ABDOMEN: Soft. EXTREMITIES: No pitting edema. Luis Purdy MD Sep 04, 2019 14:12
[2019-09-04] MEDS ORDERED: Omnipaque-300 100ml vial INJ PRN (14:30)
--- NOTE | 2019-09-04 14:46 | Surgery Progress Note ---
Surgery Progress Note Subjective Additional Comments labs reviewed exam stable comfortable appearing Objective Last 24 Hour Vital Signs Date Time Temp Pulse Resp B/P (MAP) Pulse Ox O2 Delivery O2 Flow Rate FiO2 09/04/19 13:00 98.6 09/04/19 12:00 100.4 83 18 110/54 (72) 97 09/04/19 09:12 80 140/78 09/04/19 09:00 Room Air 09/04/19 08:00 98 09/04/19 08:00 96.6 80 18 140/78 (98) 97 09/04/19 04:00 97.5 69 20 117/79 (92) 97 09/04/19 04:00 91 09/04/19 00:00 97.9 84 20 124/52 (76) 95 09/04/19 00:00 82 09/03/19 21:00 Room Air 09/03/19 20:00 98.4 72 18 110/57 (74) 99 09/03/19 20:00 76 09/03/19 16:00 76 09/03/19 16:00 98.1 72 20 102/84 (90) 96 I&O Intake and Output 09/03/19 09/04/19 19:00 07:00 Intake Total 590.000 ml Output Total 1000 ml Balance -410.000 ml Intake Oral 260 ml IV Total 330.000 ml Output Urine Total 1000 ml Dressing: saturated Wound: clean Cardiovascular: RSR Respiratory: clear Abdomen: soft, non-tender, present bowel sounds Extremities: no tenderness, no cyanosis Laboratory Tests Test 09/04/19 06:31 White Blood Count 14.9 K/UL (4.8-10.8) H Red Blood Count 3.06 M/UL (4.20-5.40) L Hemoglobin 8.5 G/DL (12.0-16.0) L Hematocrit 25.7 % (37.0-47.0) L Mean Corpuscular Volume 84 FL (80-99) Mean Corpuscular Hemoglobin 27.9 PG (27.0-31.0) Mean Corpuscular Hemoglobin Concent 33.2 G/DL (32.0-36.0) Red Cell Distribution Width 13.3 % (11.6-14.8) Platelet Count 278 K/UL (150-450) Mean Platelet Volume 6.7 FL (6.5-10.1) Neutrophils (%) (Auto) 79.5 % (45.0-75.0) H Lymphocytes (%) (Auto) 12.5 % (20.0-45.0) L Monocytes (%) (Auto) 5.8 % (1.0-10.0) Eosinophils (%) (Auto) 1.4 % (0.0-3.0) Basophils (%) (Auto) 0.8 % (0.0-2.0) Erythrocyte Sedimentation Rate 121 MM/HR (0-30) H Sodium Level 138 MMOL/L (136-145) Potassium Level 3.9 MMOL/L (3.5-5.1) Chloride Level 101 MMOL/L (98-107) Carbon Dioxide Level 27 MMOL/L (21-32) Anion Gap 10 mmol/L (5-15) Blood Urea Nitrogen 8 mg/dL (7-18) Creatinine 1.0 MG/DL (0.55-1.30) Estimat Glomerular Filtration Rate mL/min (>60) Glucose Level 144 MG/DL (74-106) H Calcium Level 8.0 MG/DL (8.5-10.1) L Total Bilirubin 0.5 MG/DL (0.2-1.0) Aspartate Amino Transf (AST/SGOT) 18 U/L (15-37) Alanine Aminotransferase (ALT/SGPT) 13 U/L (12-78) Alkaline Phosphatase 108 U/L (46-116) C-Reactive Protein, Quantitative 13.3 mg/dL (0.00-0.90) H Total Protein 7.2 G/DL (6.4-8.2) Albumin 2.0 G/DL (3.4-5.0) L Globulin 5.2 g/dL Albumin/Globulin Ratio 0.4 (1.0-2.7) L Plan Problems: (1) Decubitus skin ulcer Assessment & Plan: Pt presented on admission with multiple pressure injuries. DTPI Sacrum (L)10cm x (W)9cm with small slit at sacrococcygeal area(L)0.5cm- small amt sanguineous exudate noted.Base of wound is maroon and indurated. Two Unstageable pressure injuries in close proximity noted to L hip. Base of each wound is necrotic and soft with marginal erythema.(L)2cm x (W)3.7cm NO erythema or odor noted. Historical Scar noted at L hip in close proximity to wound. L heel boggy with non-blanching erythema.(L)4cm x (W)4.5cm R heel boggy with non-blanching erythema.(L)5cm x (W)6cm. Pt noted to have several small black droppings in bed. Upon further inspection. Single small brownish bug observed crawling in bed. At posterior aspect of neck pt noted to have macular red rash.Red rash also noted to L axilla .Complete bed Bath provided.And all bed linen removed and mattress sanitized. EVS was notified by Primary nurse. Tx.plan: Apply Moisture Barrier Paste to Sacrum. Cover with Optifoam drsg. Change every 3 days and prn. Cleanse L hip with Saline. Apply Therahoney. Apply Cavilon Skin Barrier periwound.Cover with Optifoam drsg. Change every 3 days and prn. Apply Cavilon Skin Barrier to both heels. Cover each heel with Optifoam drsg. Change every 7 days and prn. APM/YURIY mattress overlay. Reposition at least every 2hours or as tolerated. Off-load heels with pillow. (2) Sepsis Assessment & Plan: Leukocytosis, abnormal labs, tachycardic, per report fevers UA identified urosepsis bacteremic leukocytosis persistent anemia fevers resolved On antibiotics as per infectious disease Trend labs Okay for diet A.m. labs Wounds unlikely etiology of sepsis as they are chronic and do not look actively infected discussed with medical teams cont abx We will follow with recommendations thank you for let me participate in patient' s care Darrius Miller Sep 04, 2019 14:46
[2019-09-04 16:00] VITALS: BP 105/51
[2019-09-04 17:56] LABS: APPEARANCE,URINE CLEAR; BILIRUBIN, URINE NEGATIVE (NEGATIVE); COLOR,URINE PALE YELLOW; GLUCOSE, URINE (UA) NEGATIVE (NEGATIVE); KETONES,URINE 1+ (NEGATIVE); LEUKOCYTE ESTERASE ,URINE NEGATIVE (NEGATIVE); NITRITE,URINE NEGATIVE (NEGATIVE); PH,URINE 6.5 (4.5-8.0); PROTEIN,URINE 2+ (NEGATIVE); UROBILINOGEN,URINE NORMAL MG/DL (0.0-1.0)
--- NOTE | 2019-09-04 19:23 | NUR ---
HAND-OFF: Report given to Filomena Phillip RN. Patient stable. Plan of care endorsed. Informed RN that wound between big toe and other toe on LT foot began to ooze after patient scratched it. Wet to dry dressing applied and new dressings placed on BL heels.
[2019-09-04 20:00] VITALS: BP 92/45
[2019-09-05] VITALS: BP 149/92
[2019-09-05 04:00] VITALS: BP 110/52
[2019-09-05] MEDS: Meropenem 500 MG in NS 55 ML IVPB SCH ×2 (04:08→16:22)
[2019-09-05] MEDS: NovoLOG Insulin Flexpen SUBQ SCH ×4 (06:06→21:54)
[2019-09-05 06:54] LABS: EOSINOPHILS % (AUTO) 0.9 % (0.0-3.0); HEMATOCRIT 24.4 % (37.0-47.0); LYMPHOCYTES % (AUTO) 10.4 % (20.0-45.0); MEAN CORPUSCULAR VOLUME 85 FL (80-99); MONOCYTES % (AUTO) 9.1 % (1.0-10.0); NEUTROPHILS % (AUTO) 78.6 % (45.0-75.0); PLATELET COUNT 250 K/UL (150-450); RED BLOOD COUNT 2.88 M/UL (4.20-5.40); RED CELL DISTRIBUTION WIDTH 13.6 % (11.6-14.8); WHITE BLOOD COUNT 6.6 K/UL (4.8-10.8)
[2019-09-05 07:09] LABS: ANION GAP 6 mmol/L (5-15); BLOOD UREA NITROGEN 9 mg/dL (7-18); CALCIUM 7.9 MG/DL (8.5-10.1); CARBON DIOXIDE 29 MMOL/L (21-32); CHLORIDE 102 MMOL/L (98-107); CREATININE 1.1 MG/DL (0.55-1.30); POTASSIUM 4.1 MMOL/L (3.5-5.1); SODIUM 137 MMOL/L (136-145)
--- NOTE | 2019-09-05 07:26 | NUR ---
HAND-OFF: Report given to ISHAAN Howard,patient in stable condition, plan of care endorsed.
[2019-09-05] MEDS ORDERED: NS 275ml ONE (07:56)
[2019-09-05 08:00] VITALS: BP 121/50
[2019-09-05] MEDS: Aspirin Baby 81mg ORAL SCH (08:47)
[2019-09-05] MEDS: Vancomycin 750 MG in NS 275 ML IVPB SCH (08:47)
[2019-09-05] MEDS: Levodopa/Carbidopa 10/100 tab ORAL SCH ×3 (08:48→17:53)
--- NOTE | 2019-09-05 09:36 | General Progress Note ---
Assessment/Plan Problem List: (1) Bacteremia due to group B Streptococcus ICD Codes: R78.81 - Bacteremia SNOMED: 015074235058 (2) Severe sepsis ICD Codes: A41.9 - Sepsis, unspecified organism; R65.20 - Severe sepsis without septic shock SNOMED: 93231151 (3) Toxic metabolic encephalopathy ICD Codes: G92 - Toxic encephalopathy SNOMED: 450872840 (4) Diabetes mellitus with hyperglycemia ICD Codes: E11.65 - Type 2 diabetes mellitus with hyperglycemia SNOMED: 21726278, 81257474 (5) OWEN (acute kidney injury) ICD Codes: N17.9 - Acute kidney failure, unspecified SNOMED: 3411321, 90994468 (6) NSTEMI (non-ST elevated myocardial infarction) ICD Codes: I21.4 - Non-ST elevation (NSTEMI) myocardial infarction SNOMED: 99508355, 031324021 (7) Urinary tract infection due to ESBL Klebsiella ICD Codes: N39.0 - Urinary tract infection, site not specified; B96.89 - Other specified bacterial agents as the cause of diseases classified elsewhere SNOMED: 312448640, 163316305108744 (8) Suspected acute on chronic CHF (9) Decubitus skin ulcer ICD Codes: L89.90 - Pressure ulcer of unspecified site, unspecified stage SNOMED: 945420304 (10) ATN (acute tubular necrosis) ICD Codes: N17.0 - Acute kidney failure with tubular necrosis SNOMED: 92119574 (11) Parkinson disease ICD Codes: G20 - Parkinson disease SNOMED: 22762556 (12) Bedbug bite ICD Codes: W57.XXXA - Bitten or stung by nonvenomous insect and other nonvenomous arthropods, initial encounter SNOMED: 188773242 (13) Hypernatremia ICD Codes: E87.0 - Hyperosmolality and hypernatremia SNOMED: 190439867 (14) Hypokalemia ICD Codes: E87.6 - Hypokalemia SNOMED: 51068331 Status: stable Assessment/Plan: 84-year-old lady from [facility] with history of hypertension, uncontrolled diabetes, and Parkinson disease, who was brought to the emergency room by family member for altered mental status and weakness. Found to have severe sepsis due to ESBL UTI, group b strep bacteremia, ?endocarditis, OWEN vs OWEN on CKD and NSTEMI. Heart failure. BNP of more than 24,000. Echocardiogram Nl EF. ?HFpEF. developed hypernatremia. Hypokalemia. Plan: - heparin gtt per acs protocol, DC per cards, no chest pain, stable troponin. Continue ASA, beta lisbeth (Lopressor 25), hold off on statin due to rhabdomyolysis. Decreased Lopressor to 12.5 mg bid due to low heart rate, eventually had to stop due to bradycardia on 08/29 - trend tn/ekg - cardiology consult appreciated - TTE, normal EF, no vegetations, in view of strep bacteremia in 11/08 bottles, needs a ERIBERTO to r/o endocarditis, per ID alternatively can treat empirically for 6 weeks total IV abx -surveillance cultures negative -monitor serum sodium, replace k as needed - ID consult appreciated - c/w empiric vanco/zosyn, switched to meropenem based on sensitivities . Now Meropenem and vancomycin day 13 , CT abdomen pelvis ordered for rising wbc. wbc is now normal - follow urine and blood cx's. 11/08 strep bacteremia with wbc 25k--> now 14, repeat blood cultures no growth to date - c/w PD regimen - A1c 9-->insulin sliding scale ac/hs, change to resistant scale, fsbg controlled - supportive care - delirium precautions -d/w ID -discuss goal of care with family, grand daughter [phone], unable to reach. I have asked RN to page me when family at bedside Time of this note may not reflect the time of the clinical encounter. Subjective Date patient seen: Sep 05, 2019 ROS Limited/Unobtainable: Yes Allergies: Coded Allergies: No Known Allergies (Unverified , 10/23/13) Subjective poor historian. following up for severe sepsis, group b strep bacteremia, ? endocarditis, ESBL UTI, OWEN, NSTEMI. Denies any chest pain or sob, alert and awake, LBBB, episodes of vtach. ERIBERTO pending , wbc normal now, CT abdomen pelvis pending. d/w ID Objective Last 24 Hour Vital Signs Date Time Temp Pulse Resp B/P (MAP) Pulse Ox O2 Delivery O2 Flow Rate FiO2 09/05/19 08:48 83 121/50 09/05/19 08:00 97.9 83 18 121/50 (73) 96 09/05/19 04:00 98.2 80 20 110/52 (71) 96 09/05/19 04:00 84 09/05/19 00:00 80 09/05/19 00:00 96.8 74 20 149/92 (111) 96 09/04/19 21:00 Room Air 09/04/19 20:00 96.6 73 20 92/45 (61) 94 09/04/19 20:00 91 09/04/19 16:00 97.9 82 20 105/51 (69) 94 09/04/19 16:00 84 09/04/19 13:00 98.6 09/04/19 12:00 81 09/04/19 12:00 100.4 83 18 110/54 (72) 97 Intake and Output 09/04/19 09/05/19 19:00 07:00 Intake Total 450.000 ml Output Total 1500 ml Balance -1050.000 ml Intake Oral 120 ml IV Total 330.000 ml Output Urine Total 1500 ml # Voids 1 3 Laboratory Tests 09/04/19 16:30: Urine Color Pale yellow, Urine Appearance Clear, Urine pH 6.5, Urine Specific [place] 1.010, Urine Protein 2+H, Urine Glucose (UA) Negative, Urine Ketones 1+H , Urine Blood 1+H, Urine Nitrite Negative, Urine Bilirubin Negative, Urine Urobilinogen Normal, Urine Leukocyte Esterase Negative, Urine RBC 2-4H, Urine WBC 0-2, Urine Squamous Epithelial Cells Few, Urine Bacteria Few 09/05/19 06:26: White Blood Count 6.6#, Red Blood Count 2.88L, Hemoglobin 8.0L, Hematocrit 24.4L , Mean Corpuscular Volume 85, Mean Corpuscular Hemoglobin 27.9, Mean Corpuscular Hemoglobin Concent 33.0, Red Cell Distribution Width 13.6, Platelet Count 250, Mean Platelet Volume 6.7, Neutrophils (%) (Auto) 78.6H, Lymphocytes ( %) (Auto) 10.4L, Monocytes (%) (Auto) 9.1, Eosinophils (%) (Auto) 0.9, Basophils (%) (Auto) 1.0, Sodium Level 137, Potassium Level 4.1, Chloride Level 102, Carbon Dioxide Level 29, Anion Gap 6, Blood Urea Nitrogen 9, Creatinine 1.1 , Estimat Glomerular Filtration Rate , Glucose Level 158H, Calcium Level 7.9L Height (Feet): 5 Height (Inches): 3.00 Weight (Pounds): 109 Objective General Appearance: WD/WN, no apparent distress, awake, confused HEENT: normocephalic, atraumatic, PERRL, EOMI, supple, no JVD Neck: non-tender, normal alignment, supple Respiratory/Chest: chest wall non-tender, lungs clear, normal breath sounds, no respiratory distress, no accessory muscle use Cardiovascular/Chest: normal peripheral pulses, normal rate, regular rhythm, no gallop/murmur, no JVD Abdomen: non tender, soft, no organomegaly Extremities: no edema, no cyanosis Neurologic: disoriented Chago Lyons M.D. Sep 05, 2019 09:36
--- NOTE | 2019-09-05 11:50 | Diagnostic Imaging Report ---
Clinical Indication: Abdominal pain, sepsis Technique: Patient given oral contrast. IV administration nonionic contrast. Venous phase spiral acquisition obtained through the abdomen and pelvis. Multiplanar reconstructions were generated. Total dose length product 727 mGycm. CTDIvol(s) 12 mGy. Dose reduction achieved using automated exposure control Comparison: none Findings: There is anasarca, with generalized edema of the subcutaneous and abdominal fat as well as bilateral moderate-sized pleural effusions. The pleural fluid results in compressive atelectasis of much of both lower lobes. There is also pulmonary interstitial and airspace edema. There is distention of the rectum by feces. There is some thickening of the rectal wall. No evidence of colonic diverticulosis or diverticulitis. The appendix is equivocally identified, normal if real. No small bowel distention or small bowel wall thickening. Contrast has traversed the entirety of the small bowel. Distal esophagus, stomach, duodenum are unremarkable. No free or loculated intraperitoneal gas or fluid is evident. The gallbladder is distended. No definite gallstones. The extrahepatic bile ducts are dilated, common bile duct measuring up to 13 mm in diameter. However, no downstream obstructive lesion is demonstrated. There is only minimal central intrahepatic ductal dilatation. No focal liver abnormality. The pancreas, spleen, adrenals are unremarkable. The kidneys demonstrate somewhat scalloped margins likely indicating prior cortical scarring. There are prominent extrarenal pelvises bilaterally, but no roque hydronephrosis. No renal or ureteral calculi or hydroureter. The bladder contains a Buckner catheter. The uterus demonstrates arcuate artery calcifications. No pelvic mass or adenopathy. There is a vaginal pessary located deep within the posterior vaginal vault, position of which appears suboptimal. The anterior portion of this indents the bladder. The pessary is located cephalad to the Buckner balloon, but the superior portion of the bladder is folded over the top of the pessary disc. The posterior margin of the pelvis are is located superior to the distal rectum and indents the anterior wall of the mid rectum. There is protrusion of the distal rectum done below the inferior margin of the ischium There are questionably slight retrococcygeal decubitus changes, with slight skin thickening and slight skin surface irregularity, but no roque ulceration and no underlying bony abnormality. There is a vertebra plana compression fracture deformity of the L2 vertebral body, resulting in approximately 40% height loss. There is also a T12 compression fracture deformity noted. Impression: Anasarca, as described, with generalized edema of subcutaneous abdominal fat, moderate-sized bilateral pleural effusions, pulmonary interstitial and airspace edema Compressive atelectasis of the lower lobes due to the pleural fluid Evidence of rectal fecal impaction and possible stercoral proctitis Pessary, likely malpositioned, as described. There is evidence of bladder floor relaxation despite the pessary Dilated extrahepatic bile ducts. Most likely related to patient's age as no downstream obstructive lesion is demonstrated. However, correlation with liver function tests is recommended, with consideration for MRCP if clinically indicated Questionable slight retrococcygeal decubitus changes. Correlate with findings Other findings as noted, including evidence of prior renal cortical scarring, Buckner catheter, uterine arcuate artery calcifications The CT scanner at [facility] is accredited by the [employer] and the scans are performed using protocols designed to limit radiation exposure to as low as reasonably achievable to attain images of sufficient resolution adequate for diagnostic evaluation.
[2019-09-05 12:00] VITALS: BP 129/55
--- NOTE | 2019-09-05 12:05 | Surgery Progress Note ---
Surgery Progress Note Subjective Additional Comments leukocytosis resolved exam stable no n/v/f/c Objective Last 24 Hour Vital Signs Date Time Temp Pulse Resp B/P (MAP) Pulse Ox O2 Delivery O2 Flow Rate FiO2 09/05/19 09:00 Room Air 09/05/19 08:48 83 121/50 09/05/19 08:00 97.9 83 18 121/50 (73) 96 09/05/19 08:00 69 09/05/19 04:00 98.2 80 20 110/52 (71) 96 09/05/19 04:00 84 09/05/19 00:00 80 09/05/19 00:00 96.8 74 20 149/92 (111) 96 09/04/19 21:00 Room Air 09/04/19 20:00 96.6 73 20 92/45 (61) 94 09/04/19 20:00 91 09/04/19 16:00 97.9 82 20 105/51 (69) 94 09/04/19 16:00 84 09/04/19 13:00 98.6 I&O Intake and Output 09/04/19 09/05/19 19:00 07:00 Intake Total 450.000 ml Output Total 1500 ml Balance -1050.000 ml Intake Oral 120 ml IV Total 330.000 ml Output Urine Total 1500 ml # Voids 1 3 Dressing: other Wound: other Drains: other Cardiovascular: RSR Respiratory: decreased breath sounds Abdomen: soft, present bowel sounds, non-distended Extremities: no tenderness, no cyanosis Laboratory Tests Test 09/04/19 16:30 09/05/19 06:26 Urine Color Pale yellow Urine Appearance Clear Urine pH 6.5 (4.5-8.0) Urine Specific [place] 1.010 (1.005-1.035) Urine Protein 2+ (NEGATIVE) H Urine Glucose (UA) Negative (NEGATIVE) Urine Ketones 1+ (NEGATIVE) H Urine Blood 1+ (NEGATIVE) H Urine Nitrite Negative (NEGATIVE) Urine Bilirubin Negative (NEGATIVE) Urine Urobilinogen Normal MG/DL (0.0-1.0) Urine Leukocyte Esterase Negative (NEGATIVE) Urine RBC 2-4 /HPF (0 - 2) H Urine WBC 0-2 /HPF (0 - 2) Urine Squamous Epithelial Cells Few /LPF (NONE/OCC) Urine Bacteria Few /HPF (NONE) White Blood Count 6.6 K/UL (4.8-10.8) # Red Blood Count 2.88 M/UL (4.20-5.40) L Hemoglobin 8.0 G/DL (12.0-16.0) L Hematocrit 24.4 % (37.0-47.0) L Mean Corpuscular Volume 85 FL (80-99) Mean Corpuscular Hemoglobin 27.9 PG (27.0-31.0) Mean Corpuscular Hemoglobin Concent 33.0 G/DL (32.0-36.0) Red Cell Distribution Width 13.6 % (11.6-14.8) Platelet Count 250 K/UL (150-450) Mean Platelet Volume 6.7 FL (6.5-10.1) Neutrophils (%) (Auto) 78.6 % (45.0-75.0) H Lymphocytes (%) (Auto) 10.4 % (20.0-45.0) L Monocytes (%) (Auto) 9.1 % (1.0-10.0) Eosinophils (%) (Auto) 0.9 % (0.0-3.0) Basophils (%) (Auto) 1.0 % (0.0-2.0) Sodium Level 137 MMOL/L (136-145) Potassium Level 4.1 MMOL/L (3.5-5.1) Chloride Level 102 MMOL/L (98-107) Carbon Dioxide Level 29 MMOL/L (21-32) Anion Gap 6 mmol/L (5-15) Blood Urea Nitrogen 9 mg/dL (7-18) Creatinine 1.1 MG/DL (0.55-1.30) Estimat Glomerular Filtration Rate mL/min (>60) Glucose Level 158 MG/DL (74-106) H Calcium Level 7.9 MG/DL (8.5-10.1) L Plan Problems: (1) Decubitus skin ulcer Assessment & Plan: Pt presented on admission with multiple pressure injuries. DTPI Sacrum (L)10cm x (W)9cm with small slit at sacrococcygeal area(L)0.5cm- small amt sanguineous exudate noted.Base of wound is maroon and indurated. Two Unstageable pressure injuries in close proximity noted to L hip. Base of each wound is necrotic and soft with marginal erythema.(L)2cm x (W)3.7cm NO erythema or odor noted. Historical Scar noted at L hip in close proximity to wound. L heel boggy with non-blanching erythema.(L)4cm x (W)4.5cm R heel boggy with non-blanching erythema.(L)5cm x (W)6cm. Pt noted to have several small black droppings in bed. Upon further inspection. Single small brownish bug observed crawling in bed. At posterior aspect of neck pt noted to have macular red rash.Red rash also noted to L axilla .Complete bed Bath provided.And all bed linen removed and mattress sanitized. EVS was notified by Primary nurse. Tx.plan: Apply Moisture Barrier Paste to Sacrum. Cover with Optifoam drsg. Change every 3 days and prn. Cleanse L hip with Saline. Apply Therahoney. Apply Cavilon Skin Barrier periwound.Cover with Optifoam drsg. Change every 3 days and prn. Apply Cavilon Skin Barrier to both heels. Cover each heel with Optifoam drsg. Change every 7 days and prn. APM/YURIY mattress overlay. Reposition at least every 2hours or as tolerated. Off-load heels with pillow. (2) Sepsis Assessment & Plan: Leukocytosis, abnormal labs, tachycardic, per report fevers UA identified urosepsis bacteremic leukocytosis resolved improving overall anemia fevers resolved On antibiotics as per infectious disease Trend labs Okay for diet A.m. labs Wounds unlikely etiology of sepsis as they are chronic and do not look actively infected discussed with medical teams d/c planning cont abx We will follow with recommendations thank you for let me participate in patient' s care AngelaDarrius Sep 05, 2019 12:05
--- NOTE | 2019-09-05 13:26 | NUR ---
CASE MANAGEMENT:REVIEW 09/05/19 SI: SEPSIS D/T BACTEREMIA ENCEPHALOPATHY. NSTEMI 98.0 80 18 129/55 96% ON RA H/H-8.0/24.4 IS: IV VANCOMYCIN Q24 IV MEROPENEM Q12 NORVASC PO QD ASA PO QD : TELEMETRY STATUS DCP: FROM HOME PLAN: REQUIRES 6 WEEKS TOTAL OF IV ANTIBIOTICS ERIBERTO SCHEDULED FOR MONDAY
--- NOTE | 2019-09-05 14:21 | NUR ---
RD ASSESSMENT & RECOMMENDATIONS SEE CARE ACTIVITY FOR COMPLETE ASSESSMENT DAILY ESTIMATED NEEDS: Needs based on Wounds, DM 49kg 30-35 kcals/kg 9761-8045 total kcals 1.25-2 g protein/kg 61-98 g total protein 25-30ml/kcal mL/kg 1751-1012 total fluid mLs NUTRITION DIAGNOSIS: Increased kcal and pro needs r/t wound healing as evidenced by pt w/ multiple areas of skin breakdown including unstageable L hip wounds x2, refer to WC eval for full assessment. CURRENT DIET: Regular liq puree HTL + Glucerna PO DIET RECOMMENDATIONS: Continue liberalized Regular diet/ texture per [employer]ED [employer]ICER ENTERAL NUTRITION RECOMMENDATIONS: * Consult RD for TF recs w/ poor po intake * ADDITIONAL RECOMMENDATIONS: 1) Glucerna TID; w/ poor po intake of meals rec Ensure Enlive TID 2) Monitor BG, monitor for hypoglycemia w/ suboptimal intake 3) Wound care: if tolerated ANTONIA Fruit Punch BID + Vit C 250mg BID + MVI w/ min qDaily 4) Calibrated bed scale wts daily, EMR appear stable 5) REC NON ORAL FEEDS W/ CONTINUED POOR PO INTAKE; appetite stimulant? 6) Replete lytes as needed
[2019-09-05 16:00] VITALS: BP 125/61
--- NOTE | 2019-09-05 16:14 | Cardiac Electrophysiology PN ---
Assessment/Plan Assessment/Plan 1. Elevated troponin due to renal failure with creatinine 1.7. Troponins between 0.5 and 0.7. No CP and underlying left bundle-branch block. Echo Nl EF and no vegetations. On aspirin. Off statin in view of rhabdomyolysis. Off betablocker for bradycardia 2. Hypertension. 3. LBBB and sinus dorian in 30s. Resolved off Lopressor 4. Nonsustained VT. 5. Heart failure. BNP of more than 24,000. Echocardiogram Nl EF. Could be HFpEF 6. Urinary tract infection, on IV antibiotic. 7. 4/4 Strep Bacteremia with WBC 25K. R/O endocarditis. ERIBERTO scheduled for Monday by Dr New 8. Renal failure. Creatinine of 1.7. 9. Uncontrolled diabetes DW RN Subjective Subjective Remained in SR with LBBB.Had CT abdomen and Pelvis today. ERIBERTO scheduled for Monday09/09/19 Objective Last 24 Hour Vital Signs Date Time Temp Pulse Resp B/P (MAP) Pulse Ox O2 Delivery O2 Flow Rate FiO2 09/05/19 12:00 80 09/05/19 12:00 98.0 82 18 129/55 (79) 96 09/05/19 09:00 Room Air 09/05/19 08:48 83 121/50 09/05/19 08:00 97.9 83 18 121/50 (73) 96 09/05/19 08:00 69 09/05/19 04:00 98.2 80 20 110/52 (71) 96 09/05/19 04:00 84 09/05/19 00:00 80 09/05/19 00:00 96.8 74 20 149/92 (111) 96 09/04/19 21:00 Room Air 09/04/19 20:00 96.6 73 20 92/45 (61) 94 09/04/19 20:00 91 Intake and Output 09/04/19 09/05/19 19:00 07:00 Intake Total 450.000 ml Output Total 1500 ml Balance -1050.000 ml Intake Oral 120 ml IV Total 330.000 ml Output Urine Total 1500 ml # Voids 1 3 Laboratory Tests Test 09/04/19 16:30 09/05/19 06:26 Urine Color Pale yellow Urine Appearance Clear Urine pH 6.5 (4.5-8.0) Urine Specific [place] 1.010 (1.005-1.035) Urine Protein 2+ (NEGATIVE) H Urine Glucose (UA) Negative (NEGATIVE) Urine Ketones 1+ (NEGATIVE) H Urine Blood 1+ (NEGATIVE) H Urine Nitrite Negative (NEGATIVE) Urine Bilirubin Negative (NEGATIVE) Urine Urobilinogen Normal MG/DL (0.0-1.0) Urine Leukocyte Esterase Negative (NEGATIVE) Urine RBC 2-4 /HPF (0 - 2) H Urine WBC 0-2 /HPF (0 - 2) Urine Squamous Epithelial Cells Few /LPF (NONE/OCC) Urine Bacteria Few /HPF (NONE) White Blood Count 6.6 K/UL (4.8-10.8) # Red Blood Count 2.88 M/UL (4.20-5.40) L Hemoglobin 8.0 G/DL (12.0-16.0) L Hematocrit 24.4 % (37.0-47.0) L Mean Corpuscular Volume 85 FL (80-99) Mean Corpuscular Hemoglobin 27.9 PG (27.0-31.0) Mean Corpuscular Hemoglobin Concent 33.0 G/DL (32.0-36.0) Red Cell Distribution Width 13.6 % (11.6-14.8) Platelet Count 250 K/UL (150-450) Mean Platelet Volume 6.7 FL (6.5-10.1) Neutrophils (%) (Auto) 78.6 % (45.0-75.0) H Lymphocytes (%) (Auto) 10.4 % (20.0-45.0) L Monocytes (%) (Auto) 9.1 % (1.0-10.0) Eosinophils (%) (Auto) 0.9 % (0.0-3.0) Basophils (%) (Auto) 1.0 % (0.0-2.0) Sodium Level 137 MMOL/L (136-145) Potassium Level 4.1 MMOL/L (3.5-5.1) Chloride Level 102 MMOL/L (98-107) Carbon Dioxide Level 29 MMOL/L (21-32) Anion Gap 6 mmol/L (5-15) Blood Urea Nitrogen 9 mg/dL (7-18) Creatinine 1.1 MG/DL (0.55-1.30) Estimat Glomerular Filtration Rate mL/min (>60) Glucose Level 158 MG/DL (74-106) H Calcium Level 7.9 MG/DL (8.5-10.1) L Microbiology Date/Time Source Procedure Growth Status 09/03/19 21:00 Blood Blood Culture - Preliminary NO GROWTH AFTER 24 HOURS Resulted 09/03/19 20:50 Blood Blood Culture - Preliminary NO GROWTH AFTER 24 HOURS Resulted Objective HEAD AND NECK: No JVD LUNGS: Clear. CARDIOVASCULAR: Regular S1 and S2 with no gallop or murmur. ABDOMEN: Soft. EXTREMITIES: No pitting edema. Luis Purdy MD Sep 05, 2019 16:14
[2019-09-05] MEDS: Lactulose 20gm/30ml UDC ORAL SCH (17:53)
--- NOTE | 2019-09-05 19:01 | Infectious Diseases Prog Note ---
Assessment/Plan Assessment/Plan ASSESSMENT AND PLAN: 1. streptococcus agalactiae - group b bacteremia, ? endocarditis, esbl e.coli uti, sirs, leukocytosis, ? pna on chest x-ray - ?hcap/aspiration - s/p full tx for esbl e.coli uti and ? pna - change to ceftriaxone for day # 13/28 for presumptive endocarditis treatment - ERIBERTO planned - not done - f/u blood cultures negative, monitor labs, monitor chest x-ray - surveillance cultures negative, leukocytosis resolved 2. Acute kidney injury with elevated creatinine. 3. History of diabetes. 4. weakness 5. Blood pressure treatment per primary care team and diabetes treatment per primary care team and consultants. 6. Parkinson's. 7. Dementia. 8. The patient does have also elevated troponin. Cardiology follow-up. 9. MAR was noted. 10. Case was discussed with RN. 11. No known allergies. 12. Social history is negative. 13. Family history is noncontributory. 14. Continue treatment per primary consultants. 15. Orders were noted and entered. Subjective Constitutional: Reports: fatigue, other - more alert ; Denies: fever HEENT: Denies: congestion Respiratory: Denies: shortness of breath Cardiovascular: Denies: chest pain Gastrointestinal/Abdominal: Denies: nausea, vomiting, diarrhea Genitourinary: Reports: other - + arnold Neurologic: Denies: headache Psychiatric: Denies: depression Skin: Denies: rash Hematologic: Denies: bleeding Musculoskeletal: Denies: pain Allergies: Coded Allergies: No Known Allergies (Unverified , 10/23/13) Objective Vital Signs Last 24 Hour Vital Signs Date Time Temp Pulse Resp B/P (MAP) Pulse Ox O2 Delivery O2 Flow Rate FiO2 09/05/19 16:00 98.1 87 18 125/61 (82) 96 09/05/19 16:00 77 09/05/19 12:00 80 09/05/19 12:00 98.0 82 18 129/55 (79) 96 09/05/19 09:00 Room Air 09/05/19 08:48 83 121/50 09/05/19 08:00 97.9 83 18 121/50 (73) 96 09/05/19 08:00 69 09/05/19 04:00 98.2 80 20 110/52 (71) 96 1/30/20 04:00 84 09/05/19 00:00 80 09/05/19 00:00 96.8 74 20 149/92 (111) 96 09/04/19 21:00 Room Air 09/04/19 20:00 96.6 73 20 92/45 (61) 94 09/04/19 20:00 91 Height (Feet): 5 Height (Inches): 3.00 Weight (Pounds): 109 General Appearance: no acute distress HEENT: normocephalic, atraumatic, anicteric Respiratory/Chest: lungs clear, normal breath sounds, no respiratory distress, no accessory muscle use Cardiovascular: normal rate, regular rhythm, no gallop/murmur, no JVD Abdomen: normal bowel sounds, soft, non tender, no organomegaly, non distended Genitourinary: other - + arnold - urine clear Extremities: no cyanosis Skin: no rash Neurologic/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 Pleural space: Unremarkable. No pneumothorax. Heart: Borderline cardiomegaly, potentially exaggerated by portable technique. Mediastinum: Calcified aorta. Bones/joints: Osteopenia. Degenerative changes. IMPRESSION: Mild vascular congestion CT abdomen: Impression: Anasarca, as described, with generalized edema of subcutaneous abdominal fat, moderate-sized bilateral pleural effusions, pulmonary interstitial and airspace edema Compressive atelectasis of the lower lobes due to the pleural fluid Evidence of rectal fecal impaction and possible stercoral proctitis Pessary, likely malpositioned, as described. There is evidence of bladder floor relaxation despite the pessary Dilated extrahepatic bile ducts. Most likely related to patient's age as no downstream obstructive lesion is demonstrated. However, correlation with liver function tests is recommended, with consideration for MRCP if clinically indicated Questionable slight retrococcygeal decubitus changes. Correlate with findings Other findings as noted, including evidence of prior renal cortical scarring, Arnold catheter, uterine arcuate artery calcifications Chest x-ray - 09/05/19 - Indication: Cough Technique: One view of the chest Comparison: 08/24/2019 Findings: There is increased interstitial edema. There is evidence of left perihilar airspace disease There is suggestion of trace bilateral pleural effusions. The heart size is upper limits normal. Impression: Increased interstitial edema, since prior exam 08/24/2019 Suspect left perihilar consolidation Small bilateral pleural effusions Microbiology Date/Time Source Procedure Growth Status 09/03/19 21:00 Blood Blood Culture - Preliminary NO GROWTH AFTER 24 HOURS Resulted 09/03/19 20:50 Blood Blood Culture - Preliminary NO GROWTH AFTER 24 HOURS Resulted Laboratory Tests Test 09/05/19 06:26 White Blood Count 6.6 K/UL (4.8-10.8) # Red Blood Count 2.88 M/UL (4.20-5.40) L Hemoglobin 8.0 G/DL (12.0-16.0) L Hematocrit 24.4 % (37.0-47.0) L Mean Corpuscular Volume 85 FL (80-99) Mean Corpuscular Hemoglobin 27.9 PG (27.0-31.0) Mean Corpuscular Hemoglobin Concent 33.0 G/DL (32.0-36.0) Red Cell Distribution Width 13.6 % (11.6-14.8) Platelet Count 250 K/UL (150-450) Mean Platelet Volume 6.7 FL (6.5-10.1) Neutrophils (%) (Auto) 78.6 % (45.0-75.0) H Lymphocytes (%) (Auto) 10.4 % (20.0-45.0) L Monocytes (%) (Auto) 9.1 % (1.0-10.0) Eosinophils (%) (Auto) 0.9 % (0.0-3.0) Basophils (%) (Auto) 1.0 % (0.0-2.0) Sodium Level 137 MMOL/L (136-145) Potassium Level 4.1 MMOL/L (3.5-5.1) Chloride Level 102 MMOL/L (98-107) Carbon Dioxide Level 29 MMOL/L (21-32) Anion Gap 6 mmol/L (5-15) Blood Urea Nitrogen 9 mg/dL (7-18) Creatinine 1.1 MG/DL (0.55-1.30) Estimat Glomerular Filtration Rate mL/min (>60) Glucose Level 158 MG/DL (74-106) H Calcium Level 7.9 MG/DL (8.5-10.1) L Current Medications Medications (Trade) Dose Ordered Sig/Krystin Route PRN Reason Start Time Stop Time Status Last Admin Dose Admin Acetaminophen (Tylenol) 650 mg Q4H PRN ORAL Mild Pain/Temp > 100.5 09/03/19 00:45 09/24/19 12:44 09/04/19 12:26 Amlodipine Besylate (Norvasc) 5 mg DAILY ORAL 09/03/19 09:00 09/28/19 08:59 09/05/19 08:48 Aspirin (ASA) 81 mg DAILY ORAL 09/03/19 09:00 09/24/19 08:59 09/05/19 08:47 Barium Sulfate (Readi-Cat 2) 450 ml NOW PRN ORAL Radiology Procedure 09/04/19 14:30 09/06/19 14:24 Carbidopa/Levodopa (Sinemet 10) 1 tab THREE TIMES A DAY ORAL 09/03/19 09:00 09/24/19 08:59 09/05/19 17:53 Dextrose (Dextrose 50%) 25 ml Q30M PRN IV Hypoglycemia 09/03/19 00:15 09/23/19 19:14 Dextrose (Dextrose 50%) 50 ml Q30M PRN IV Hypoglycemia 09/03/19 00:15 09/23/19 19:14 Insulin Aspart (NovoLOG) BEFORE MEALS AND HS SUBQ 09/03/19 06:30 09/29/19 20:59 09/04/19 16:23 Iohexol (OMNIPAQUE-300 100ml) 100 ml NOW PRN INJ Radiology Procedure 09/04/19 14:30 09/06/19 14:24 Lactulose (Cephulac) 30 gm THREE TIMES A DAY ORAL 09/05/19 18:00 10/05/19 17:59 09/05/19 17:53 Meropenem 500 mg/ Sodium Chloride 55 ml @ 110 mls/hr Q12HR@0400,1600 IVPB 09/04/19 04:00 09/09/19 03:59 09/05/19 16:22 Vancomycin HCl (Vanco rx to dose) 1 ea DAILY PRN MISC Per rx protocol 09/03/19 20:45 10/03/19 20:44 Vancomycin HCl 750 mg/Sodium Chloride 275 ml @ 183.333 mls/hr Q24H IVPB 09/04/19 09:00 09/09/19 08:59 09/05/19 08:47 Gerardo Toledo MD Sep 05, 2019 19:01
--- NOTE | 2019-09-05 19:20 | NUR ---
NURSE NOTES: Received pt and report from ISHAAN Acosta. Observed pt resting in bed with both eyes open. Pt is A/Ox1. electronic device monitor is in placed; pt is NSR. IV site intact, asymptomatic, and patent. Bed is in the lowest position and locked. Call light and bedside table is within reach. Pt is on a P200 mattress. No signs/symptoms of acute distress noted at this time. Will continue plan of care.
--- NOTE | 2019-09-05 19:29 | NUR ---
HAND-OFF: Report given to Chana RN. Patient stable. Plan of care endorsed.
[2019-09-05 20:00] VITALS: BP 141/70
[2019-09-06] VITALS: BP 145/67
[2019-09-06 04:00] VITALS: BP 144/71
[2019-09-06] MEDS: NovoLOG Insulin Flexpen SUBQ SCH ×4 (06:27→21:27)
[2019-09-06 06:55] LABS: BASOPHILS % (AUTO) 1.2 % (0.0-2.0); EOSINOPHILS % (AUTO) 0.3 % (0.0-3.0); HEMATOCRIT 24.6 % (37.0-47.0); HEMOGLOBIN 8.1 G/DL (12.0-16.0); MEAN CORPUSCULAR VOLUME 84 FL (80-99); MONOCYTES % (AUTO) 8.6 % (1.0-10.0); NEUTROPHILS % (AUTO) 75.9 % (45.0-75.0); PLATELET COUNT 310 K/UL (150-450); RED BLOOD COUNT 2.92 M/UL (4.20-5.40); RED CELL DISTRIBUTION WIDTH 13.4 % (11.6-14.8); WHITE BLOOD COUNT 9.1 K/UL (4.8-10.8)
[2019-09-06 07:22] LABS: ANION GAP 8 mmol/L (5-15); BLOOD UREA NITROGEN 8 mg/dL (7-18); CALCIUM 8.1 MG/DL (8.5-10.1); CARBON DIOXIDE 27 MMOL/L (21-32); CHLORIDE 101 MMOL/L (98-107); POTASSIUM 4.2 MMOL/L (3.5-5.1); SODIUM 136 MMOL/L (136-145)
--- NOTE | 2019-09-06 07:38 | NUR ---
HAND-OFF: Report given to ISHAAN Acosta. Plan of care endorsed.
--- NOTE | 2019-09-06 07:44 | NUR ---
NURSE NOTES: Patient stable AOx1, patient only responds to name and follows some commands. No s/sx of distress. RR even and unlabored on RA. IV fluids infusing. Side rails upx2, call light within reach, bed low and locked. Will continue to monitor. Addendum: 09/06/19 at 0748 by JUNIOR PEDRO RN NO FLUIDS INFUSING
[2019-09-06 08:00] VITALS: BP 139/76
[2019-09-06] MEDS: Lactulose 20gm/30ml UDC ORAL SCH ×2 (09:00→12:00)
--- NOTE | 2019-09-06 09:34 | General Progress Note ---
Assessment/Plan Problem List: (1) Bacteremia due to group B Streptococcus ICD Codes: R78.81 - Bacteremia SNOMED: 633627632579 (2) Severe sepsis ICD Codes: A41.9 - Sepsis, unspecified organism; R65.20 - Severe sepsis without septic shock SNOMED: 12306303 (3) Toxic metabolic encephalopathy ICD Codes: G92 - Toxic encephalopathy SNOMED: 508994704 (4) Diabetes mellitus with hyperglycemia ICD Codes: E11.65 - Type 2 diabetes mellitus with hyperglycemia SNOMED: 90426184, 05523116 (5) OWEN (acute kidney injury) ICD Codes: N17.9 - Acute kidney failure, unspecified SNOMED: 0723721, 02227306 (6) NSTEMI (non-ST elevated myocardial infarction) ICD Codes: I21.4 - Non-ST elevation (NSTEMI) myocardial infarction SNOMED: 98747960, 036655150 (7) Urinary tract infection due to ESBL Klebsiella ICD Codes: N39.0 - Urinary tract infection, site not specified; B96.89 - Other specified bacterial agents as the cause of diseases classified elsewhere SNOMED: 668057681, 767070396055376 (8) Suspected acute on chronic CHF (9) Decubitus skin ulcer ICD Codes: L89.90 - Pressure ulcer of unspecified site, unspecified stage SNOMED: 953786797 (10) ATN (acute tubular necrosis) ICD Codes: N17.0 - Acute kidney failure with tubular necrosis SNOMED: 87403599 (11) Parkinson disease ICD Codes: G20 - Parkinson disease SNOMED: 25710396 (12) Bedbug bite ICD Codes: W57.XXXA - Bitten or stung by nonvenomous insect and other nonvenomous arthropods, initial encounter SNOMED: 715822972 (13) Hypernatremia ICD Codes: E87.0 - Hyperosmolality and hypernatremia SNOMED: 547831511 (14) Hypokalemia ICD Codes: E87.6 - Hypokalemia SNOMED: 93809301 Status: stable Assessment/Plan: 84-year-old lady from [facility] with history of hypertension, uncontrolled diabetes, and Parkinson disease, who was brought to the emergency room by family member for altered mental status and weakness. Found to have severe sepsis due to ESBL UTI, group b strep bacteremia, ?endocarditis, OWEN vs OWEN on CKD and NSTEMI. Heart failure. BNP of more than 24,000. Echocardiogram Nl EF. ?HFpEF. developed hypernatremia. Hypokalemia. Plan: - heparin gtt per acs protocol, DC per cards, no chest pain, stable troponin. Continue ASA, beta lisbeth (Lopressor 25), hold off on statin due to rhabdomyolysis. Decreased Lopressor to 12.5 mg bid due to low heart rate, eventually had to stop due to bradycardia on 08/29 - trend tn/ekg - cardiology consult appreciated - TTE, normal EF, no vegetations, in view of strep bacteremia in / bottles, needs a ERIBERTO to r/o endocarditis, per ID alternatively can treat empirically for 6 weeks total IV abx -surveillance cultures negative -monitor serum sodium, replace k as needed - ID consult appreciated - c/w empiric vanco/zosyn, switched to meropenem based on sensitivities . change to ceftriaxone for day # 14/28 for presumptive endocarditis treatment - follow urine and blood cx's. 11/08 strep bacteremia with wbc 25k--> now 9, repeat blood cultures no growth to date - c/w PD regimen - A1c 9-->insulin sliding scale ac/hs, change to resistant scale, fsbg controlled - supportive care - delirium precautions -d/w ID -discuss goal of care with family, grand daughter [phone], unable to reach. I have asked RN to page me when family at bedside -Add lasix 40 mg BID Time of this note may not reflect the time of the clinical encounter. Subjective Date patient seen: Sep 06, 2019 ROS Limited/Unobtainable: Yes Allergies: Coded Allergies: No Known Allergies (Unverified , 10/23/13) Subjective poor historian. following up for severe sepsis, group b strep bacteremia, ? endocarditis, ESBL UTI, OWEN, NSTEMI. Denies any chest pain or sob, alert and awake, LBBB, episodes of vtach. ERIBERTO pending , wbc normal now. Objective Last 24 Hour Vital Signs Date Time Temp Pulse Resp B/P (MAP) Pulse Ox O2 Delivery O2 Flow Rate FiO2 09/06/19 08:11 Room Air 09/06/19 04:00 76 09/06/19 04:00 98.6 87 17 144/71 (95) 96 09/06/19 00:00 81 09/06/19 00:00 96.9 80 18 145/67 (93) 93 09/05/19 21:00 Room Air 09/05/19 20:00 98.3 85 20 141/70 (93) 93 09/05/19 20:00 83 09/05/19 16:00 98.1 87 18 125/61 (82) 96 09/05/19 16:00 77 09/05/19 12:00 80 09/05/19 12:00 98.0 82 18 129/55 (79) 96 Intake and Output 09/05/19 09/06/19 19:00 07:00 Intake Total 275.000 ml 250 ml Output Total 1300 ml Balance 275.000 ml -1050 ml Intake Oral 250 ml IV Total 275.000 ml Output Urine Total 1300 ml # Bowel Movements 1 Laboratory Tests 09/06/19 05:35: White Blood Count 9.1, Red Blood Count 2.92L, Hemoglobin 8.1L, Hematocrit 24.6L , Mean Corpuscular Volume 84, Mean Corpuscular Hemoglobin 27.6, Mean Corpuscular Hemoglobin Concent 32.7, Red Cell Distribution Width 13.4, Platelet Count 310, Mean Platelet Volume 6.8, Neutrophils (%) (Auto) 75.9H, Lymphocytes ( %) (Auto) 14.0L, Monocytes (%) (Auto) 8.6, Eosinophils (%) (Auto) 0.3, Basophils (%) (Auto) 1.2, Sodium Level 136, Potassium Level 4.2, Chloride Level 101, Carbon Dioxide Level 27, Anion Gap 8, Blood Urea Nitrogen 8, Creatinine 1.0 , Estimat Glomerular Filtration Rate , Glucose Level 104, Calcium Level 8.1L Height (Feet): 5 Height (Inches): 3.00 Weight (Pounds): 109 Objective General Appearance: WD/WN, no apparent distress, awake, confused HEENT: normocephalic, atraumatic, PERRL, EOMI, supple, no JVD Neck: non-tender, normal alignment, supple Respiratory/Chest: chest wall non-tender, lungs clear, normal breath sounds, no respiratory distress, no accessory muscle use Cardiovascular/Chest: normal peripheral pulses, normal rate, regular rhythm, no gallop/murmur, no JVD Abdomen: non tender, soft, no organomegaly Extremities: no edema, no cyanosis Neurologic: disoriented Chago Lyons M.D. Sep 06, 2019 09:34
[2019-09-06] MEDS: Levodopa/Carbidopa 10/100 tab ORAL SCH ×3 (09:43→18:05)
[2019-09-06] MEDS: Aspirin Baby 81mg ORAL SCH (09:44)
--- NOTE | 2019-09-06 10:52 | Cardiac Electrophysiology PN ---
Assessment/Plan Assessment/Plan 1. Elevated troponin due to renal failure with creatinine 1.7. Troponins between 0.5 and 0.7. No CP and underlying left bundle-branch block. Echo Nl EF and no vegetations. On aspirin. Off statin in view of rhabdomyolysis. Off betablocker for bradycardia 2. Hypertension. 3. LBBB and sinus dorian in 30s. Resolved off Lopressor 4. Nonsustained VT. 5. Heart failure. BNP of more than 24,000. Echocardiogram Nl EF. Could be HFpEF 6. Urinary tract infection, on IV antibiotic. 7. 4/4 Strep Bacteremia with WBC 25K. R/O endocarditis. ERIBERTO scheduled for Monday by Dr. New 8. Renal failure. Creatinine of 1.7. 9. Uncontrolled diabetes 10. Left toe diabetic ulcer. On iv Abx. Podiatry to evaluate. CLEM RN and Dr Lyons Subjective Subjective Remained in SR with LBBB. No CP or SOB.ERIBERTO scheduled for Monday09/09/19. RN at bedside Objective Last 24 Hour Vital Signs Date Time Temp Pulse Resp B/P (MAP) Pulse Ox O2 Delivery O2 Flow Rate FiO2 09/06/19 09:43 89 139/76 09/06/19 08:11 Room Air 09/06/19 08:00 94 09/06/19 04:00 76 09/06/19 04:00 98.6 87 17 144/71 (95) 96 09/06/19 00:00 81 09/06/19 00:00 96.9 80 18 145/67 (93) 93 09/05/19 21:00 Room Air 09/05/19 20:00 98.3 85 20 141/70 (93) 93 09/05/19 20:00 83 09/05/19 16:00 98.1 87 18 125/61 (82) 96 09/05/19 16:00 77 09/05/19 12:00 80 09/05/19 12:00 98.0 82 18 129/55 (79) 96 Intake and Output 09/05/19 09/06/19 19:00 07:00 Intake Total 275.000 ml 250 ml Output Total 1300 ml Balance 275.000 ml -1050 ml Intake Oral 250 ml IV Total 275.000 ml Output Urine Total 1300 ml # Bowel Movements 1 Laboratory Tests Test 09/06/19 05:35 White Blood Count 9.1 K/UL (4.8-10.8) Red Blood Count 2.92 M/UL (4.20-5.40) L Hemoglobin 8.1 G/DL (12.0-16.0) L Hematocrit 24.6 % (37.0-47.0) L Mean Corpuscular Volume 84 FL (80-99) Mean Corpuscular Hemoglobin 27.6 PG (27.0-31.0) Mean Corpuscular Hemoglobin Concent 32.7 G/DL (32.0-36.0) Red Cell Distribution Width 13.4 % (11.6-14.8) Platelet Count 310 K/UL (150-450) Mean Platelet Volume 6.8 FL (6.5-10.1) Neutrophils (%) (Auto) 75.9 % (45.0-75.0) H Lymphocytes (%) (Auto) 14.0 % (20.0-45.0) L Monocytes (%) (Auto) 8.6 % (1.0-10.0) Eosinophils (%) (Auto) 0.3 % (0.0-3.0) Basophils (%) (Auto) 1.2 % (0.0-2.0) Sodium Level 136 MMOL/L (136-145) Potassium Level 4.2 MMOL/L (3.5-5.1) Chloride Level 101 MMOL/L (98-107) Carbon Dioxide Level 27 MMOL/L (21-32) Anion Gap 8 mmol/L (5-15) Blood Urea Nitrogen 8 mg/dL (7-18) Creatinine 1.0 MG/DL (0.55-1.30) Estimat Glomerular Filtration Rate mL/min (>60) Glucose Level 104 MG/DL (74-106) Calcium Level 8.1 MG/DL (8.5-10.1) L Microbiology Date/Time Source Procedure Growth Status 09/03/19 21:00 Blood Blood Culture - Preliminary NO GROWTH AFTER 48 HOURS Resulted 09/03/19 20:50 Blood Blood Culture - Preliminary NO GROWTH AFTER 48 HOURS Resulted Objective HEAD AND NECK: No JVD LUNGS: Clear. CARDIOVASCULAR: Regular S1 and S2 with no gallop or murmur. ABDOMEN: Soft. EXTREMITIES: Left toe ulcer Luis Purdy MD Sep 06, 2019 10:52
[2019-09-06 12:00] VITALS: BP 141/80
--- NOTE | 2019-09-06 14:31 | NUR ---
RADIOLOGY DEPT., RIGHT FOOT X-RAYS COMPLETED.MoraimaPANAMIKA
--- NOTE | 2019-09-06 14:49 | Surgery Progress Note ---
Surgery Progress Note Subjective Symptoms: improved Objective Last 24 Hour Vital Signs Date Time Temp Pulse Resp B/P (MAP) Pulse Ox O2 Delivery O2 Flow Rate FiO2 09/06/19 12:00 98.6 92 19 141/80 (100) 98 09/06/19 12:00 88 09/06/19 09:43 89 139/76 09/06/19 08:11 Room Air 09/06/19 08:00 94 09/06/19 08:00 98.4 89 18 139/76 (97) 96 09/06/19 04:00 76 09/06/19 04:00 98.6 87 17 144/71 (95) 96 09/06/19 00:00 81 09/06/19 00:00 96.9 80 18 145/67 (93) 93 09/05/19 21:00 Room Air 09/05/19 20:00 98.3 85 20 141/70 (93) 93 09/05/19 20:00 83 09/05/19 16:00 98.1 87 18 125/61 (82) 96 09/05/19 16:00 77 I&O Intake and Output 09/05/19 09/06/19 19:00 07:00 Intake Total 275.000 ml 250 ml Output Total 1300 ml Balance 275.000 ml -1050 ml Intake Oral 250 ml IV Total 275.000 ml Output Urine Total 1300 ml # Bowel Movements 1 Dressing: other Wound: other Drains: other Cardiovascular: RSR Respiratory: decreased breath sounds Abdomen: soft, present bowel sounds Extremities: no cyanosis Laboratory Tests Test 09/06/19 05:35 White Blood Count 9.1 K/UL (4.8-10.8) Red Blood Count 2.92 M/UL (4.20-5.40) L Hemoglobin 8.1 G/DL (12.0-16.0) L Hematocrit 24.6 % (37.0-47.0) L Mean Corpuscular Volume 84 FL (80-99) Mean Corpuscular Hemoglobin 27.6 PG (27.0-31.0) Mean Corpuscular Hemoglobin Concent 32.7 G/DL (32.0-36.0) Red Cell Distribution Width 13.4 % (11.6-14.8) Platelet Count 310 K/UL (150-450) Mean Platelet Volume 6.8 FL (6.5-10.1) Neutrophils (%) (Auto) 75.9 % (45.0-75.0) H Lymphocytes (%) (Auto) 14.0 % (20.0-45.0) L Monocytes (%) (Auto) 8.6 % (1.0-10.0) Eosinophils (%) (Auto) 0.3 % (0.0-3.0) Basophils (%) (Auto) 1.2 % (0.0-2.0) Sodium Level 136 MMOL/L (136-145) Potassium Level 4.2 MMOL/L (3.5-5.1) Chloride Level 101 MMOL/L (98-107) Carbon Dioxide Level 27 MMOL/L (21-32) Anion Gap 8 mmol/L (5-15) Blood Urea Nitrogen 8 mg/dL (7-18) Creatinine 1.0 MG/DL (0.55-1.30) Estimat Glomerular Filtration Rate mL/min (>60) Glucose Level 104 MG/DL (74-106) Calcium Level 8.1 MG/DL (8.5-10.1) L Plan Problems: (1) Decubitus skin ulcer Assessment & Plan: Pt presented on admission with multiple pressure injuries. DTPI Sacrum (L)10cm x (W)9cm with small slit at sacrococcygeal area(L)0.5cm- small amt sanguineous exudate noted.Base of wound is maroon and indurated. Two Unstageable pressure injuries in close proximity noted to L hip. Base of each wound is necrotic and soft with marginal erythema.(L)2cm x (W)3.7cm NO erythema or odor noted. Historical Scar noted at L hip in close proximity to wound. L heel boggy with non-blanching erythema.(L)4cm x (W)4.5cm R heel boggy with non-blanching erythema.(L)5cm x (W)6cm. Pt noted to have several small black droppings in bed. Upon further inspection. Single small brownish bug observed crawling in bed. At posterior aspect of neck pt noted to have macular red rash.Red rash also noted to L axilla .Complete bed Bath provided.And all bed linen removed and mattress sanitized. EVS was notified by Primary nurse. Tx.plan: Apply Moisture Barrier Paste to Sacrum. Cover with Optifoam drsg. Change every 3 days and prn. Cleanse L hip with Saline. Apply Therahoney. Apply Cavilon Skin Barrier periwound.Cover with Optifoam drsg. Change every 3 days and prn. Apply Cavilon Skin Barrier to both heels. Cover each heel with Optifoam drsg. Change every 7 days and prn. APM/YURIY mattress overlay. Reposition at least every 2hours or as tolerated. Off-load heels with pillow. (2) Sepsis Assessment & Plan: Leukocytosis, abnormal labs, tachycardic, per report fevers UA identified urosepsis bacteremic leukocytosis resolved improving overall anemia fevers resolved On antibiotics as per infectious disease Trend labs Okay for diet A.m. labs Wounds unlikely etiology of sepsis as they are chronic and do not look actively infected discussed with medical teams d/c planning cont abx We will follow with recommendations thank you for let me participate in patient' s care Darrius Miller Sep 06, 2019 14:49
--- NOTE | 2019-09-06 15:44 | Diagnostic Imaging Report ---
Indication: Heel Pain Comparison: None Findings: 3 views of the right foot were obtained. Bones are osteopenic. There is no definite bony erosion or periostitis. There is no soft tissue air. Tiny small vessel arterial calcifications are noted. IMPRESSION: No plain film evidence for acute osteomyelitis of the calcaneus
[2019-09-06 16:00] VITALS: BP 135/72
--- NOTE | 2019-09-06 18:10 | Diagnostic Imaging Report ---
EXAM: XR Left Foot Complete, 3 or More Views CLINICAL HISTORY: INFECT TECHNIQUE: Frontal, lateral and oblique views of the left foot. COMPARISON: No relevant prior studies available. FINDINGS: Bones/joints: No acute displaced fracture or dislocation. Possible mild erosive changes at 1st proximal phalangeal base and 1st metatarsal head, versus artifact. Cannot exclude osteomyelitis. Degenerative changes. Soft tissues: Soft tissue swelling. No radiopaque foreign body. IMPRESSION: 1. No acute displaced fracture or dislocation. 2. Possible mild erosive changes at 1st proximal phalangeal base and 1st metatarsal head, versus artifact. Cannot exclude osteomyelitis.
--- NOTE | 2019-09-06 19:35 | NUR ---
NURSE NOTES: Received pt and report from ISHAAN Acosta. Observed pt resting in bed with both eyes closed; arousable to voice. Pt is A/Ox1. radiation monitor is in placed; pt is NSR. IV site intact, asymptomatic, and patent. Bed is in the lowest position and locked. Call light and bedside table is within reach. Pt is on a P200 mattress. No signs/symptoms of acute distress noted at this time. Will continue plan of care.
--- NOTE | 2019-09-06 19:48 | NUR ---
HAND-OFF: Report given to Chana RN.Patient stable. Plan of care endorsed.
[2019-09-06 20:00] VITALS: BP 128/59
[2019-09-06] MEDS: Furosemide 40mg tab ORAL SCH (21:23)
[2019-09-06] MEDS: cefTRIAXone 2 GM in NS 110 ML IVPB SCH (22:01)
[2019-09-07] VITALS: BP 132/63
[2019-09-07 04:00] VITALS: BP 122/67
[2019-09-07] MEDS: NovoLOG Insulin Flexpen SUBQ SCH ×4 (06:30→21:00)
[2019-09-07 07:28] LABS: ANION GAP 10 mmol/L (5-15); BLOOD UREA NITROGEN 10 mg/dL (7-18); CALCIUM 8.2 MG/DL (8.5-10.1); CARBON DIOXIDE 26 MMOL/L (21-32); CHLORIDE 97 MMOL/L (98-107); CREATININE 1.1 MG/DL (0.55-1.30); POTASSIUM 4.2 MMOL/L (3.5-5.1); SODIUM 133 MMOL/L (136-145)
[2019-09-07 07:29] LABS: BASOPHILS % (AUTO) 0.9 % (0.0-2.0); EOSINOPHILS % (AUTO) 0.3 % (0.0-3.0); HEMATOCRIT 25.2 % (37.0-47.0); HEMOGLOBIN 8.4 G/DL (12.0-16.0); LYMPHOCYTES % (AUTO) 30.4 % (20.0-45.0); MEAN CORPUSCULAR VOLUME 83 FL (80-99); MONOCYTES % (AUTO) 10.9 % (1.0-10.0); NEUTROPHILS % (AUTO) 57.5 % (45.0-75.0); PLATELET COUNT 343 K/UL (150-450); RED BLOOD COUNT 3.02 M/UL (4.20-5.40); WHITE BLOOD COUNT 7.7 K/UL (4.8-10.8)
--- NOTE | 2019-09-07 07:38 | NUR ---
NURSE NOTES: Patient stable AOx1, patient only responds to name. No s/sx of distress. RR even and unlabored on RA. Side rails upx2, call light within reach, bed low and locked. Dr. Toledo called regarding xray of foot showing possible osphyomyelitis. Will continue to monitor.
--- NOTE | 2019-09-07 07:52 | NUR ---
HAND-OFF: Report given to ISHAAN Acosta. Plan of care endorsed.
[2019-09-07 08:00] VITALS: BP 125/50
[2019-09-07] MEDS: metroNIDAZOLE 500mg tab ORAL SCH ×2 (09:22→17:09)
[2019-09-07] MEDS: Doxycycline Monohydrate 100mg ORAL SCH ×2 (09:22→21:03)
[2019-09-07] MEDS: Levodopa/Carbidopa 10/100 tab ORAL SCH ×3 (09:22→17:09)
[2019-09-07] MEDS: Furosemide 40mg tab ORAL SCH ×2 (09:23→21:03)
[2019-09-07] MEDS: Aspirin Baby 81mg ORAL SCH (09:23)
--- NOTE | 2019-09-07 09:50 | NUR ---
RADIOLOGY DEPT., CHEST X-RAY DONE.-P.DYE
--- NOTE | 2019-09-07 09:52 | Diagnostic Imaging Report ---
EXAM: XR Chest, 1 View CLINICAL HISTORY: INFECT TECHNIQUE: Frontal view of the chest. COMPARISON: Chest x-ray dated 09/04/19 FINDINGS: Lungs: Interval mild improvement in the diffusely increased interstitial markings compared to the prior exam, suggesting improved pulmonary interstitial edema. Linear atelectasis at the periphery of the left mid lung. Pleural space: Possible small left pleural effusion. Heart: Unremarkable. No cardiomegaly. Mediastinum: Unremarkable. Bones/joints: Degenerative changes at the visualized spine and shoulder joints. Vasculature: Atherosclerotic calcifications are noted within the aortic arch. Tubes, lines and devices: Telemetry leads overlie the thorax. IMPRESSION: 1. Interval mild improvement in the diffusely increased interstitial markings compared to the prior exam, suggesting improved pulmonary interstitial edema. 2. Linear atelectasis at the periphery of the left mid lung. 3. Possible small left pleural effusion.
[2019-09-07 12:00] VITALS: BP 137/57
--- NOTE | 2019-09-07 12:34 | Cardiac Electrophysiology PN ---
Assessment/Plan Assessment/Plan 1. Elevated troponin due to renal failure with creatinine 1.7. Troponins between 0.5 and 0.7. No CP. ECG left bundle-branch block. Echo Nl EF and no vegetations. On aspirin. Off statin in view of rhabdomyolysis. Off betablocker for bradycardia 2. Hypertension. 3. LBBB and sinus dorian in 30s. Resolved off Lopressor 4. Nonsustained VT. 5. Heart failure. BNP of more than 24,000. Echocardiogram Nl EF. Could be HFpEF 6. Urinary tract infection, on IV antibiotic. 7. 4/4 Strep Bacteremia with WBC 25K. R/O endocarditis. ERIBERTO scheduled for Monday by Dr. New 8. Renal failure. Creatinine of 1.7. 9. Uncontrolled diabetes 10. Left toe diabetic ulcer. On iv Abx. Podiatry follow DW RN Subjective Subjective Remained in SR with LBBB. No CP or SOB.ERIBERTO scheduled for Monday09/09/19. Objective Last 24 Hour Vital Signs Date Time Temp Pulse Resp B/P (MAP) Pulse Ox O2 Delivery O2 Flow Rate FiO2 09/07/19 09:22 74 125/50 09/07/19 08:17 Room Air 09/07/19 08:00 98.2 74 16 125/50 (75) 96 09/07/19 08:00 74 09/07/19 04:00 97.0 79 17 122/67 (85) 95 09/07/19 04:00 80 09/07/19 00:00 96.9 80 18 132/63 (86) 96 09/07/19 00:00 79 09/06/19 21:00 Room Air 09/06/19 20:00 79 09/06/19 20:00 97.5 81 19 128/59 (82) 93 09/06/19 16:00 84 09/06/19 16:00 98.2 88 18 135/72 (93) 99 Intake and Output 09/06/19 09/07/19 19:00 07:00 Intake Total 860 ml Output Total 1000 ml 1200 ml Balance -140 ml -1200 ml Intake Oral 860 ml Output Urine Total 1000 ml 1200 ml # Bowel Movements 2 Laboratory Tests Test 09/07/19 06:07 White Blood Count 7.7 K/UL (4.8-10.8) Red Blood Count 3.02 M/UL (4.20-5.40) L Hemoglobin 8.4 G/DL (12.0-16.0) L Hematocrit 25.2 % (37.0-47.0) L Mean Corpuscular Volume 83 FL (80-99) Mean Corpuscular Hemoglobin 27.8 PG (27.0-31.0) Mean Corpuscular Hemoglobin Concent 33.3 G/DL (32.0-36.0) Red Cell Distribution Width 14.0 % (11.6-14.8) Platelet Count 343 K/UL (150-450) Mean Platelet Volume 6.8 FL (6.5-10.1) Neutrophils (%) (Auto) 57.5 % (45.0-75.0) Lymphocytes (%) (Auto) 30.4 % (20.0-45.0) Monocytes (%) (Auto) 10.9 % (1.0-10.0) H Eosinophils (%) (Auto) 0.3 % (0.0-3.0) Basophils (%) (Auto) 0.9 % (0.0-2.0) Sodium Level 133 MMOL/L (136-145) L Potassium Level 4.2 MMOL/L (3.5-5.1) Chloride Level 97 MMOL/L (98-107) L Carbon Dioxide Level 26 MMOL/L (21-32) Anion Gap 10 mmol/L (5-15) Blood Urea Nitrogen 10 mg/dL (7-18) Creatinine 1.1 MG/DL (0.55-1.30) Estimat Glomerular Filtration Rate mL/min (>60) Glucose Level 108 MG/DL (74-106) H Calcium Level 8.2 MG/DL (8.5-10.1) L Objective HEAD AND NECK: No JVD LUNGS: Clear. CARDIOVASCULAR: Regular S1 and S2 with no gallop or murmur. ABDOMEN: Soft. EXTREMITIES: Left toe ulcer Luis Purdy MD Sep 07, 2019 12:34
--- NOTE | 2019-09-07 13:14 | General Progress Note ---
Assessment/Plan Problem List: (1) Urinary retention ICD Codes: R33.9 - Retention of urine, unspecified SNOMED: 937125685 (2) Renal insufficiency ICD Codes: N28.9 - Disorder of kidney and ureter, unspecified SNOMED: 864387107, 717250732 (3) NSTEMI (non-ST elevated myocardial infarction) ICD Codes: I21.4 - Non-ST elevation (NSTEMI) myocardial infarction SNOMED: 12900485, 356773438 (4) UTI (lower urinary tract infection) (5) Diabetes ICD Codes: E11.9 - Diabetes SNOMED: 76624550 (6) Parkinson disease ICD Codes: G20 - Parkinson disease SNOMED: 08718858 (7) Weakness generalized ICD Codes: R53.1 - Asthenia SNOMED: 80191467 (8) Sepsis (9) HTN (hypertension) ICD Codes: I10 - HTN (hypertension) SNOMED: 75421702 (10) Frailty ICD Codes: R54 - Frailty SNOMED: 266640100 (11) Dehydration (12) Urinary obstruction ICD Codes: N13.9 - Obstructive and reflux uropathy, unspecified SNOMED: 4796569 (13) ATN (acute tubular necrosis) ICD Codes: N17.0 - Acute kidney failure with tubular necrosis SNOMED: 90776218 (14) CVA (cerebral vascular accident) ICD Codes: I63.9 - Cerebral infarction, unspecified SNOMED: 704816842 Status: stable Assessment/Plan: Assessment/Plan: 84-year-old lady from [facility] with history of hypertension, uncontrolled diabetes, and Parkinson disease, who was brought to the emergency room by family member for altered mental status and weakness. Found to have severe sepsis due to ESBL UTI, group b strep bacteremia, ?endocarditis, OWEN vs OWEN on CKD and NSTEMI. Heart failure. BNP of more than 24,000. Echocardiogram Nl EF. ?HFpEF. developed hypernatremia. Hypokalemia. Plan: - heparin gtt per acs protocol, DC per cards, no chest pain, stable troponin. Continue ASA, beta lisbeth (Lopressor 25), hold off on statin due to rhabdomyolysis. Decreased Lopressor to 12.5 mg bid due to low heart rate, eventually had to stop due to bradycardia on 08/29 - trend tn/ekg - cardiology consult appreciated - TTE, normal EF, no vegetations, in view of strep bacteremia in 4/4 bottles, needs a ERIBERTO to r/o endocarditis (plan for Monday), per ID alternatively can treat empirically for 6 weeks total IV abx -surveillance cultures negative -monitor serum sodium, replace k as needed - ID consult appreciated - c/w empiric vanco/zosyn, switched to meropenem based on sensitivities . change to ceftriaxone for day # 14/28 for presumptive endocarditis treatment - follow urine and blood cx's. 11/08 strep bacteremia with wbc 25k--> now 9, repeat blood cultures no growth to date - c/w PD regimen - A1c 9-->insulin sliding scale ac/hs, change to resistant scale, fsbg controlled - supportive care - delirium precautions -d/w ID -discuss goal of care with family, grand daughter [phone], unable to reach. I have asked RN to page me when family at bedside -Add lasix 40 mg BID -General surgery consult appreciated. -Right foot xray without evidence of osteomyelitis, Left foot with possible osteo, not ruled out. Per surgery, pus expressed from fot. Surgery discussed with podiatry for evaluation. 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 Subjective Date patient seen: Sep 07, 2019 Time patient seen: 12:23 ROS Limited/Unobtainable: Yes Constitutional: Denies: no symptoms, chills, diaphoresis, fever, malaise, weakness, other HEENT: Denies: no symptoms, eye pain, blurred vision, tearing, double vision, ear pain, ear discharge, nose pain, nose congestion, throat pain, throat swelling, mouth pain, mouth swelling, other Cardiovascular: Denies: no symptoms, chest pain, edema, irregular heart rate, lightheadedness, palpitations, syncope, other Respiratory: Denies: no symptoms, cough, orthopnea, shortness of breath, SOB with excertion, SOB at rest, sputum, stridor, wheezing, other Gastrointestinal/Abdominal: Denies: no symptoms, abdomen distended, abdominal pain, black stools, tarry stools, blood in stool, constipated, diarrhea, difficulty swallowing, nausea, poor appetite, poor fluid intake, rectal bleeding , vomiting, other Genitourinary: Denies: no symptoms, burning, discharge, frequency, flank pain, hematuria, incontinence, pain, urgency, other Neurologic/Psychiatric: Denies: no symptoms, anxiety, depressed, emotional problems, headache, numbness, paresthesia, pre-existing deficit, seizure, tingling, tremors, weakness, other Endocrine: Denies: no symptoms, excessive sweating, flushing, intolerance to cold, intolerance to heat, increased hunger, increased thirst, increased urine, unexplained weight gain, unexplained weight loss, other Hematologic/Lymphatic: Denies: no symptoms, anemia, easy bleeding, easy bruising, other Allergies: Coded Allergies: No Known Allergies (Unverified , 10/23/13) All Systems: reviewed and negative except above Subjective resting comfortably, appears comforatble. denies any pain Objective Last 24 Hour Vital Signs Date Time Temp Pulse Resp B/P (MAP) Pulse Ox O2 Delivery O2 Flow Rate FiO2 09/07/19 12:00 93 09/07/19 09:22 74 125/50 09/07/19 08:17 Room Air 09/07/19 08:00 98.2 74 16 125/50 (75) 96 09/07/19 08:00 74 09/07/19 04:00 97.0 79 17 122/67 (85) 95 09/07/19 04:00 80 09/07/19 00:00 96.9 80 18 132/63 (86) 96 09/07/19 00:00 79 09/06/19 21:00 Room Air 09/06/19 20:00 79 09/06/19 20:00 97.5 81 19 128/59 (82) 93 09/06/19 16:00 84 09/06/19 16:00 98.2 88 18 135/72 (93) 99 Intake and Output 09/06/19 09/07/19 19:00 07:00 Intake Total 860 ml Output Total 1000 ml 1200 ml Balance -140 ml -1200 ml Intake Oral 860 ml Output Urine Total 1000 ml 1200 ml # Bowel Movements 2 Laboratory Tests 09/07/19 06:07: White Blood Count 7.7, Red Blood Count 3.02L, Hemoglobin 8.4L, Hematocrit 25.2L , Mean Corpuscular Volume 83, Mean Corpuscular Hemoglobin 27.8, Mean Corpuscular Hemoglobin Concent 33.3, Red Cell Distribution Width 14.0, Platelet Count 343, Mean Platelet Volume 6.8, Neutrophils (%) (Auto) 57.5, Lymphocytes (% ) (Auto) 30.4, Monocytes (%) (Auto) 10.9H, Eosinophils (%) (Auto) 0.3, Basophils (%) (Auto) 0.9, Sodium Level 133L, Potassium Level 4.2, Chloride Level 97L, Carbon Dioxide Level 26, Anion Gap 10, Blood Urea Nitrogen 10, Creatinine 1.1, Estimat Glomerular Filtration Rate , Glucose Level 108H, Calcium Level 8.2L Height (Feet): 5 Height (Inches): 3.00 Weight (Pounds): 109 General Appearance: WD/WN, no apparent distress EENT: PERRL/EOMI Neck: supple Cardiovascular: normal rate, regular rhythm, no gallop/murmur Respiratory/Chest: normal breath sounds, no respiratory distress Abdomen: soft Edema: no edema noted Arm (L), no edema noted Arm (R), no edema noted Leg (L), no edema noted Leg (R), no edema noted Pedal (L), no edema noted Pedal (R), no edema noted Generalized Neurologic: alert Arnie Bee M.D. Sep 07, 2019 13:14
--- NOTE | 2019-09-07 13:16 | Surgery Progress Note ---
Surgery Progress Note Subjective Additional Comments cellulitis of left great toe with fluctuance around eschar today drained pus from wound and cultured podiatry input Objective Last 24 Hour Vital Signs Date Time Temp Pulse Resp B/P (MAP) Pulse Ox O2 Delivery O2 Flow Rate FiO2 09/07/19 12:00 93 09/07/19 09:22 74 125/50 09/07/19 08:17 Room Air 09/07/19 08:00 98.2 74 16 125/50 (75) 96 09/07/19 08:00 74 09/07/19 04:00 97.0 79 17 122/67 (85) 95 09/07/19 04:00 80 09/07/19 00:00 96.9 80 18 132/63 (86) 96 09/07/19 00:00 79 09/06/19 21:00 Room Air 09/06/19 20:00 79 09/06/19 20:00 97.5 81 19 128/59 (82) 93 09/06/19 16:00 84 09/06/19 16:00 98.2 88 18 135/72 (93) 99 I&O Intake and Output 09/06/19 09/07/19 19:00 07:00 Intake Total 860 ml Output Total 1000 ml 1200 ml Balance -140 ml -1200 ml Intake Oral 860 ml Output Urine Total 1000 ml 1200 ml # Bowel Movements 2 Dressing: saturated Wound: other Drains: other Cardiovascular: RSR Respiratory: decreased breath sounds Abdomen: soft, present bowel sounds, non-distended Extremities: edema, tenderness, no cyanosis, other Laboratory Tests Test 09/07/19 06:07 White Blood Count 7.7 K/UL (4.8-10.8) Red Blood Count 3.02 M/UL (4.20-5.40) L Hemoglobin 8.4 G/DL (12.0-16.0) L Hematocrit 25.2 % (37.0-47.0) L Mean Corpuscular Volume 83 FL (80-99) Mean Corpuscular Hemoglobin 27.8 PG (27.0-31.0) Mean Corpuscular Hemoglobin Concent 33.3 G/DL (32.0-36.0) Red Cell Distribution Width 14.0 % (11.6-14.8) Platelet Count 343 K/UL (150-450) Mean Platelet Volume 6.8 FL (6.5-10.1) Neutrophils (%) (Auto) 57.5 % (45.0-75.0) Lymphocytes (%) (Auto) 30.4 % (20.0-45.0) Monocytes (%) (Auto) 10.9 % (1.0-10.0) H Eosinophils (%) (Auto) 0.3 % (0.0-3.0) Basophils (%) (Auto) 0.9 % (0.0-2.0) Sodium Level 133 MMOL/L (136-145) L Potassium Level 4.2 MMOL/L (3.5-5.1) Chloride Level 97 MMOL/L (98-107) L Carbon Dioxide Level 26 MMOL/L (21-32) Anion Gap 10 mmol/L (5-15) Blood Urea Nitrogen 10 mg/dL (7-18) Creatinine 1.1 MG/DL (0.55-1.30) Estimat Glomerular Filtration Rate mL/min (>60) Glucose Level 108 MG/DL (74-106) H Calcium Level 8.2 MG/DL (8.5-10.1) L Plan Problems: (1) Decubitus skin ulcer Assessment & Plan: Pt presented on admission with multiple pressure injuries. DTPI Sacrum (L)10cm x (W)9cm with small slit at sacrococcygeal area(L)0.5cm- small amt sanguineous exudate noted.Base of wound is maroon and indurated. Two Unstageable pressure injuries in close proximity noted to L hip. Base of each wound is necrotic and soft with marginal erythema.(L)2cm x (W)3.7cm NO erythema or odor noted. Historical Scar noted at L hip in close proximity to wound. L heel boggy with non-blanching erythema.(L)4cm x (W)4.5cm R heel boggy with non-blanching erythema.(L)5cm x (W)6cm. Pt noted to have several small black droppings in bed. Upon further inspection. Single small brownish bug observed crawling in bed. At posterior aspect of neck pt noted to have macular red rash.Red rash also noted to L axilla .Complete bed Bath provided.And all bed linen removed and mattress sanitized. EVS was notified by Primary nurse. left great toe with eschar now soft and draining pus. cultured Tx.plan: Apply Moisture Barrier Paste to Sacrum. Cover with Optifoam drsg. Change every 3 days and prn. Cleanse L hip with Saline. Apply Therahoney. Apply Cavilon Skin Barrier periwound.Cover with Optifoam drsg. Change every 3 days and prn. Apply Cavilon Skin Barrier to both heels. Cover each heel with Optifoam drsg. Change every 7 days and prn. APM/YURIY mattress overlay. Reposition at least every 2hours or as tolerated. Off-load heels with pillow. podiatry eval wash left foot daily, apply Betadine to eschar and gauze (2) Sepsis Assessment & Plan: Leukocytosis, abnormal labs, tachycardic, per report fevers UA identified urosepsis bacteremic leukocytosis resolved improving overall anemia fevers resolved On antibiotics as per infectious disease Trend labs Okay for diet A.m. labs Wounds unlikely etiology of sepsis as they are chronic and do not look actively infected discussed with medical teams d/c planning cont abx We will follow with recommendations thank you for let me participate in patient' s care Darrius Miller Sep 07, 2019 13:16
[2019-09-07 16:00] VITALS: BP 125/58
--- NOTE | 2019-09-07 17:42 | Infectious Diseases Prog Note ---
Assessment/Plan Assessment/Plan ASSESSMENT AND PLAN: 1. streptococcus agalactiae - group b bacteremia, ? endocarditis, esbl e.coli uti, sirs, leukocytosis, ? pna on chest x-ray - ? hcap/aspiration vs pulmonary edema, left foot great toe/1st toe wound infection, cannot rule osteo osteomyelitis on x-ray left foot - ceftriaxone for presumptive endocarditis, doxycycline and flagyl added for possible left foot great toe osteomyelitis - ceftriaxone for day # 15/28 for presumptive endocarditis treatment - ERIBERTO planned - not done - ? MRI left foot to rule out osteomyelitis - defer to podiatry, f/u on wound culture - f/u blood cultures negative, monitor labs, chest x-ray now c/w edema that has improved - surveillance cultures negative, leukocytosis resolved 2. Acute kidney injury with elevated creatinine. 3. History of diabetes. 4. weakness 5. Blood pressure treatment per primary care team and diabetes treatment per primary care team and consultants. 6. Parkinson's. 7. Dementia. 8. The patient does have also elevated troponin. Cardiology follow-up. 9. MAR was noted. 10. Case was discussed with RN. 11. No known allergies. 12. Social history is negative. 13. Family history is noncontributory. 14. Continue treatment per primary consultants. 15. Orders were noted and entered. Subjective Constitutional: Denies: fever HEENT: Denies: congestion Respiratory: Denies: shortness of breath Cardiovascular: Denies: chest pain Gastrointestinal/Abdominal: Denies: nausea, vomiting, diarrhea Neurologic: Reports: weakness, other - responsive, no change in mental status Psychiatric: Denies: depression Skin: Denies: rash Hematologic: Denies: bleeding Musculoskeletal: Denies: pain Allergies: Coded Allergies: No Known Allergies (Unverified , 10/23/13) Objective Vital Signs Last 24 Hour Vital Signs Date Time Temp Pulse Resp B/P (MAP) Pulse Ox O2 Delivery O2 Flow Rate FiO2 09/07/19 12:00 97.3 93 18 137/57 (83) 92 09/07/19 12:00 93 09/07/19 09:22 74 125/50 09/07/19 08:17 Room Air 09/07/19 08:00 98.2 74 16 125/50 (75) 96 09/07/19 08:00 74 09/07/19 04:00 97.0 79 17 122/67 (85) 95 09/07/19 04:00 80 09/07/19 00:00 96.9 80 18 132/63 (86) 96 09/07/19 00:00 79 09/06/19 21:00 Room Air 09/06/19 20:00 79 09/06/19 20:00 97.5 81 19 128/59 (82) 93 Height (Feet): 5 Height (Inches): 3.00 Weight (Pounds): 109 General Appearance: no acute distress HEENT: normocephalic, atraumatic, anicteric, mucous membranes moist Respiratory/Chest: no accessory muscle use, crackles/rales, rhonchi - bilaterally Cardiovascular: normal rate, regular rhythm, no gallop/murmur, no JVD Abdomen: normal bowel sounds, soft, non tender, no organomegaly, non distended Genitourinary: other - + arnold - urine slt cloudy Extremities: other - left foot great toe/1st toe wound noted, + necrosis and drainage Skin: no rash 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 Pleural space: Unremarkable. No pneumothorax. Heart: Borderline cardiomegaly, potentially exaggerated by portable technique. Mediastinum: Calcified aorta. Bones/joints: Osteopenia. Degenerative changes. IMPRESSION: Mild vascular congestion CT abdomen: Impression: Anasarca, as described, with generalized edema of subcutaneous abdominal fat, moderate-sized bilateral pleural effusions, pulmonary interstitial and airspace edema Compressive atelectasis of the lower lobes due to the pleural fluid Evidence of rectal fecal impaction and possible stercoral proctitis Pessary, likely malpositioned, as described. There is evidence of bladder floor relaxation despite the pessary Dilated extrahepatic bile ducts. Most likely related to patient's age as no downstream obstructive lesion is demonstrated. However, correlation with liver function tests is recommended, with consideration for MRCP if clinically indicated Questionable slight retrococcygeal decubitus changes. Correlate with findings Other findings as noted, including evidence of prior renal cortical scarring, Arnold catheter, uterine arcuate artery calcifications Chest x-ray - 09/05/19 - Indication: Cough Technique: One view of the chest Comparison: 08/24/2019 Findings: There is increased interstitial edema. There is evidence of left perihilar airspace disease There is suggestion of trace bilateral pleural effusions. The heart size is upper limits normal. Impression: Increased interstitial edema, since prior exam 08/24/2019 Suspect left perihilar consolidation Small bilateral pleural effusions Chest x-ray - 09/07/19 - IMPRESSION: 1. Interval mild improvement in the diffusely increased interstitial markings compared to the prior exam, suggesting improved pulmonary interstitial edema. 2. Linear atelectasis at the periphery of the left mid lung. 3. Possible small left pleural effusion. Microbiology Date/Time Source Procedure Growth Status 09/03/19 21:00 Blood Blood Culture - Preliminary NO GROWTH AFTER 72 HOURS Resulted 08/24/19 14:25 Urine,Clean Catch Urine Culture - Final Escherichia Coli - Esbl Complete Laboratory Tests Test 09/07/19 06:07 White Blood Count 7.7 K/UL (4.8-10.8) Red Blood Count 3.02 M/UL (4.20-5.40) L Hemoglobin 8.4 G/DL (12.0-16.0) L Hematocrit 25.2 % (37.0-47.0) L Mean Corpuscular Volume 83 FL (80-99) Mean Corpuscular Hemoglobin 27.8 PG (27.0-31.0) Mean Corpuscular Hemoglobin Concent 33.3 G/DL (32.0-36.0) Red Cell Distribution Width 14.0 % (11.6-14.8) Platelet Count 343 K/UL (150-450) Mean Platelet Volume 6.8 FL (6.5-10.1) Neutrophils (%) (Auto) 57.5 % (45.0-75.0) Lymphocytes (%) (Auto) 30.4 % (20.0-45.0) Monocytes (%) (Auto) 10.9 % (1.0-10.0) H Eosinophils (%) (Auto) 0.3 % (0.0-3.0) Basophils (%) (Auto) 0.9 % (0.0-2.0) Sodium Level 133 MMOL/L (136-145) L Potassium Level 4.2 MMOL/L (3.5-5.1) Chloride Level 97 MMOL/L (98-107) L Carbon Dioxide Level 26 MMOL/L (21-32) Anion Gap 10 mmol/L (5-15) Blood Urea Nitrogen 10 mg/dL (7-18) Creatinine 1.1 MG/DL (0.55-1.30) Estimat Glomerular Filtration Rate mL/min (>60) Glucose Level 108 MG/DL (74-106) H Calcium Level 8.2 MG/DL (8.5-10.1) L Current Medications Medications (Trade) Dose Ordered Sig/Krystin Route PRN Reason Start Time Stop Time Status Last Admin Dose Admin Acetaminophen (Tylenol) 650 mg Q4H PRN ORAL Mild Pain/Temp > 100.5 09/03/19 00:45 09/24/19 12:44 09/04/19 12:26 Amlodipine Besylate (Norvasc) 5 mg DAILY ORAL 09/03/19 09:00 09/28/19 08:59 09/07/19 09:22 Aspirin (ASA) 81 mg DAILY ORAL 09/03/19 09:00 09/24/19 08:59 09/07/19 09:23 Carbidopa/Levodopa (Sinemet 10/100) 1 tab THREE TIMES A DAY ORAL 09/03/19 09:00 09/24/19 08:59 09/07/19 17:09 Ceftriaxone Sodium 2 gm/ Sodium Chloride 110 ml @ 220 mls/hr Q24HRS IVPB 09/06/19 21:00 09/12/19 20:59 09/06/19 22:01 Collagenase (Santyl) 1 applic DAILY TOPIC 09/06/19 17:00 10/06/19 16:59 09/07/19 09:23 Dextrose (Dextrose 50%) 25 ml Q30M PRN IV Hypoglycemia 09/03/19 00:15 09/23/19 19:14 Dextrose (Dextrose 50%) 50 ml Q30M PRN IV Hypoglycemia 09/03/19 00:15 09/23/19 19:14 Doxycycline Monohydrate (Doxycycline Monohydrate) 100 mg EVERY 12 HOURS ORAL 09/07/19 09:00 09/14/19 08:59 09/07/19 09:22 Furosemide (Lasix) 40 mg EVERY 12 HOURS ORAL 09/06/19 21:00 10/06/19 20:59 09/07/19 09:23 Insulin Aspart (NovoLOG) BEFORE MEALS AND HS SUBQ 09/03/19 06:30 09/29/19 20:59 09/07/19 17:17 Metronidazole (Flagyl) 500 mg Q8H ORAL 09/07/19 09:00 09/14/19 08:59 09/07/19 17:09 Gerardo Toledo MD Sep 07, 2019 17:42
--- NOTE | 2019-09-07 19:20 | NUR ---
NURSE NOTES: Got report from Karla QUIROS. Pt in stable condition. Denies any pain. No s/s of distress or discomfort noted. Pt resting in bed comfortably. Bed in low and locked position, call light within reach, bedside table within reach. Continue to monitor.
[2019-09-07 20:00] VITALS: BP 115/65
[2019-09-07] MEDS: cefTRIAXone 2 GM in NS 110 ML IVPB SCH (21:03)
[2019-09-08] VITALS: BP 113/53
[2019-09-08] MEDS: metroNIDAZOLE 500mg tab ORAL SCH ×3 (01:00→17:07)
[2019-09-08 04:00] VITALS: BP 112/53
[2019-09-08] MEDS: NovoLOG Insulin Flexpen SUBQ SCH ×4 (06:02→20:51)
--- NOTE | 2019-09-08 07:55 | NUR ---
HAND-OFF: Report given to Karla QUIROS.
--- NOTE | 2019-09-08 07:56 | NUR ---
NURSE NOTES: Patient stable AOx1, patient only responds to name. No s/sx of distress but appears malaise. Complaining that she is uncomfortable. Patient repositioned. RR even and unlabored on RA. Side rails upx2, call light within reach, bed low and locked. Will continue to monitor.
[2019-09-08 08:00] VITALS: BP 100/50
[2019-09-08] MEDS: Doxycycline Monohydrate 100mg ORAL SCH ×2 (08:55→20:39)
[2019-09-08] MEDS: Levodopa/Carbidopa 10/100 tab ORAL SCH ×3 (08:56→17:07)
[2019-09-08] MEDS: Aspirin Baby 81mg ORAL SCH (08:56)
[2019-09-08] MEDS: Furosemide 40mg tab ORAL SCH ×2 (08:56→20:39)
--- NOTE | 2019-09-08 11:14 | Surgery Progress Note ---
Surgery Progress Note Subjective Additional Comments discussed with podiatry spont draining plan for iv abx 6 weeks Objective Last 24 Hour Vital Signs Date Time Temp Pulse Resp B/P (MAP) Pulse Ox O2 Delivery O2 Flow Rate FiO2 09/08/19 08:56 81 100/50 09/08/19 08:00 59 09/08/19 08:00 98.0 81 20 100/50 (67) 97 09/08/19 04:00 98.2 84 20 112/53 (72) 98 09/08/19 04:00 77 09/08/19 00:00 97.1 80 18 113/53 (73) 96 09/08/19 00:00 79 09/07/19 21:00 Room Air 09/07/19 20:00 98.1 76 18 115/65 (82) 98 09/07/19 20:00 78 09/07/19 16:00 89 09/07/19 16:00 98.2 89 18 125/58 (80) 94 09/07/19 12:00 97.3 93 18 137/57 (83) 92 09/07/19 12:00 93 I&O Intake and Output 09/07/19 09/08/19 19:00 07:00 Intake Total 120 ml Output Total 1400 ml 200 ml Balance -1280 ml -200 ml Intake Oral 120 ml Output Urine Total 1400 ml 200 ml # Bowel Movements 1 Dressing: saturated Wound: clean Cardiovascular: RSR Respiratory: clear Abdomen: soft, flat, non-tender, present bowel sounds Extremities: edema, no cyanosis, other Laboratory Tests Test 09/08/19 08:45 Vancomycin Level Trough 6.1 ug/mL (5.0-12.0) Plan Problems: (1) Decubitus skin ulcer Assessment & Plan: Pt presented on admission with multiple pressure injuries. DTPI Sacrum (L)10cm x (W)9cm with small slit at sacrococcygeal area(L)0.5cm- small amt sanguineous exudate noted.Base of wound is maroon and indurated. Two Unstageable pressure injuries in close proximity noted to L hip. Base of each wound is necrotic and soft with marginal erythema.(L)2cm x (W)3.7cm NO erythema or odor noted. Historical Scar noted at L hip in close proximity to wound. L heel boggy with non-blanching erythema.(L)4cm x (W)4.5cm R heel boggy with non-blanching erythema.(L)5cm x (W)6cm. Pt noted to have several small black droppings in bed. Upon further inspection. Single small brownish bug observed crawling in bed. At posterior aspect of neck pt noted to have macular red rash.Red rash also noted to L axilla .Complete bed Bath provided.And all bed linen removed and mattress sanitized. EVS was notified by Primary nurse. left great toe with eschar now soft and draining pus. cultured Tx.plan: Apply Moisture Barrier Paste to Sacrum. Cover with Optifoam drsg. Change every 3 days and prn. Cleanse L hip with Saline. Apply Therahoney. Apply Cavilon Skin Barrier periwound.Cover with Optifoam drsg. Change every 3 days and prn. Apply Cavilon Skin Barrier to both heels. Cover each heel with Optifoam drsg. Change every 7 days and prn. APM/YURIY mattress overlay. Reposition at least every 2hours or as tolerated. Off-load heels with pillow. podiatry eval wash left foot daily, apply Betadine to eschar and gauze (2) Sepsis Assessment & Plan: Leukocytosis, abnormal labs, tachycardic, per report fevers UA identified urosepsis bacteremic leukocytosis resolved improving overall anemia fevers resolved On antibiotics as per infectious disease Trend labs Okay for diet A.m. labs Wounds unlikely etiology of sepsis as they are chronic and do not look actively infected discussed with medical teams d/c planning cont abx We will follow with recommendations thank you for let me participate in patient' s care Darrius Miller Sep 08, 2019 11:14
[2019-09-08 12:00] VITALS: BP 112/52
--- NOTE | 2019-09-08 13:05 | NUR ---
NURSE NOTES: Spoke with Dr. Bee regarding patient's deteriorating condition. Patient is less alert and less active than previous days and is lethargic. Mentioned possible vaginal infection. Also mentioned that wounds are worsening in condition including wound on LT foot. Mentioned that podiatry had suggested MRI but was never ordered. Vaginal infection also mentioned to Dr. Toledo.
--- NOTE | 2019-09-08 13:27 | Infectious Diseases Prog Note ---
Assessment/Plan Assessment/Plan ASSESSMENT AND PLAN: 1. streptococcus agalactiae - group b bacteremia, ? endocarditis, esbl e.coli uti, sirs, leukocytosis, ? pna on chest x-ray - ? hcap/aspiration vs pulmonary edema, left foot great toe/1st toe wound infection, cannot rule osteo osteomyelitis on x-ray left foot - ceftriaxone for presumptive endocarditis, doxycycline and flagyl added for possible left foot great toe osteomyelitis - ceftriaxone for day # 16/28 for presumptive endocarditis treatment - ERIBERTO planned - not done - ? MRI left foot to rule out osteomyelitis - defer to podiatry, f/u on wound culture - f/u blood cultures negative, monitor labs, chest x-ray now c/w edema that has improved - surveillance cultures negative, leukocytosis resolved - arterial studies ordered 2. Acute kidney injury with elevated creatinine. 3. History of diabetes. 4. weakness 5. Blood pressure treatment per primary care team and diabetes treatment per primary care team and consultants. 6. Parkinson's. 7. Dementia. 8. The patient does have also elevated troponin. Cardiology follow-up. 9. MAR was noted. 10. Case was discussed with RN. 11. No known allergies. 12. Social history is negative. 13. Family history is noncontributory. 14. Continue treatment per primary consultants. 15. Orders were noted and entered. Subjective Constitutional: Reports: fatigue; Denies: fever HEENT: Denies: congestion Respiratory: Reports: shortness of breath - minimal Cardiovascular: Denies: chest pain Gastrointestinal/Abdominal: Denies: nausea, vomiting Genitourinary: Reports: other - + arnold Neurologic: Reports: headache Psychiatric: Reports: other - NA Skin: Denies: rash Hematologic: Denies: bleeding Musculoskeletal: Reports: other - NA Allergies: Coded Allergies: No Known Allergies (Unverified , 10/23/13) Objective Vital Signs Last 24 Hour Vital Signs Date Time Temp Pulse Resp B/P (MAP) Pulse Ox O2 Delivery O2 Flow Rate FiO2 09/08/19 12:00 98.0 77 18 112/52 (72) 100 09/08/19 12:00 73 09/08/19 09:00 Nasal Cannula 2.0 09/08/19 08:56 81 100/50 09/08/19 08:00 59 09/08/19 08:00 98.0 81 20 100/50 (67) 97 09/08/19 04:00 98.2 84 20 112/53 (72) 98 09/08/19 04:00 77 09/08/19 00:00 97.1 80 18 113/53 (73) 96 09/08/19 00:00 79 09/07/19 21:00 Room Air 09/07/19 20:00 98.1 76 18 115/65 (82) 98 09/07/19 20:00 78 09/07/19 16:00 89 09/07/19 16:00 98.2 89 18 125/58 (80) 94 Height (Feet): 5 Height (Inches): 3.00 Weight (Pounds): 109 General Appearance: no acute distress HEENT: normocephalic, atraumatic, anicteric, supple, no JVD Respiratory/Chest: no respiratory distress, no accessory muscle use, accessory muscle use, crackles/rales Cardiovascular: normal rate, regular rhythm, no gallop/murmur Abdomen: normal bowel sounds, soft, non tender, no organomegaly, non distended Genitourinary: other - + arnold - urine slt cloudy Extremities: other - right foot great toe with necrosis Skin: no ulcers 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 Pleural space: Unremarkable. No pneumothorax. Heart: Borderline cardiomegaly, potentially exaggerated by portable technique. Mediastinum: Calcified aorta. Bones/joints: Osteopenia. Degenerative changes. IMPRESSION: Mild vascular congestion CT abdomen: Impression: Anasarca, as described, with generalized edema of subcutaneous abdominal fat, moderate-sized bilateral pleural effusions, pulmonary interstitial and airspace edema Compressive atelectasis of the lower lobes due to the pleural fluid Evidence of rectal fecal impaction and possible stercoral proctitis Pessary, likely malpositioned, as described. There is evidence of bladder floor relaxation despite the pessary Dilated extrahepatic bile ducts. Most likely related to patient's age as no downstream obstructive lesion is demonstrated. However, correlation with liver function tests is recommended, with consideration for MRCP if clinically indicated Questionable slight retrococcygeal decubitus changes. Correlate with findings Other findings as noted, including evidence of prior renal cortical scarring, Arnold catheter, uterine arcuate artery calcifications Chest x-ray - 09/05/19 - Indication: Cough Technique: One view of the chest Comparison: 08/24/2019 Findings: There is increased interstitial edema. There is evidence of left perihilar airspace disease There is suggestion of trace bilateral pleural effusions. The heart size is upper limits normal. Impression: Increased interstitial edema, since prior exam 08/24/2019 Suspect left perihilar consolidation Small bilateral pleural effusions Chest x-ray - 09/07/19 - IMPRESSION: 1. Interval mild improvement in the diffusely increased interstitial markings compared to the prior exam, suggesting improved pulmonary interstitial edema. 2. Linear atelectasis at the periphery of the left mid lung. 3. Possible small left pleural effusion. Microbiology Date/Time Source Procedure Growth Status 09/03/19 21:00 Blood Blood Culture - Preliminary NO GROWTH AFTER 4 DAYS Resulted 08/24/19 14:25 Urine,Clean Catch Urine Culture - Final Escherichia Coli - Esbl Complete 09/07/19 13:12 Foot Left Gram Stain - Final Resulted 09/07/19 13:12 Foot Left Wound Culture - Preliminary Resulted Microbiology Date/Time Source Procedure Growth Status 09/07/19 13:12 Foot Left Gram Stain - Final Resulted 09/07/19 13:12 Foot Left Wound Culture - Preliminary Resulted Labs Test 09/06/19 05:35 09/07/19 06:07 09/08/19 08:45 White Blood Count 9.1 K/UL (4.8-10.8) 7.7 K/UL (4.8-10.8) Red Blood Count 2.92 M/UL (4.20-5.40) 3.02 M/UL (4.20-5.40) Hemoglobin 8.1 G/DL (12.0-16.0) 8.4 G/DL (12.0-16.0) Hematocrit 24.6 % (37.0-47.0) 25.2 % (37.0-47.0) Mean Corpuscular Volume 84 FL (80-99) 83 FL (80-99) Mean Corpuscular Hemoglobin 27.6 PG (27.0-31.0) 27.8 PG (27.0-31.0) Mean Corpuscular Hemoglobin Concent 32.7 G/DL (32.0-36.0) 33.3 G/DL (32.0-36.0) Red Cell Distribution Width 13.4 % (11.6-14.8) 14.0 % (11.6-14.8) Platelet Count 310 K/UL (150-450) 343 K/UL (150-450) Mean Platelet Volume 6.8 FL (6.5-10.1) 6.8 FL (6.5-10.1) Neutrophils (%) (Auto) 75.9 % (45.0-75.0) 57.5 % (45.0-75.0) Lymphocytes (%) (Auto) 14.0 % (20.0-45.0) 30.4 % (20.0-45.0) Monocytes (%) (Auto) 8.6 % (1.0-10.0) 10.9 % (1.0-10.0) Eosinophils (%) (Auto) 0.3 % (0.0-3.0) 0.3 % (0.0-3.0) Basophils (%) (Auto) 1.2 % (0.0-2.0) 0.9 % (0.0-2.0) Sodium Level 136 MMOL/L (136-145) 133 MMOL/L (136-145) Potassium Level 4.2 MMOL/L (3.5-5.1) 4.2 MMOL/L (3.5-5.1) Chloride Level 101 MMOL/L (98-107) 97 MMOL/L (98-107) Carbon Dioxide Level 27 MMOL/L (21-32) 26 MMOL/L (21-32) Anion Gap 8 mmol/L (5-15) 10 mmol/L (5-15) Blood Urea Nitrogen 8 mg/dL (7-18) 10 mg/dL (7-18) Creatinine 1.0 MG/DL (0.55-1.30) 1.1 MG/DL (0.55-1.30) Estimat Glomerular Filtration Rate mL/min (>60) mL/min (>60) Glucose Level 104 MG/DL (74-106) 108 MG/DL (74-106) Calcium Level 8.1 MG/DL (8.5-10.1) 8.2 MG/DL (8.5-10.1) Vancomycin Level Trough 6.1 ug/mL (5.0-12.0) Laboratory Tests Test 09/08/19 08:45 Vancomycin Level Trough 6.1 ug/mL (5.0-12.0) Current Medications Medications (Trade) Dose Ordered Sig/Krystin Route PRN Reason Start Time Stop Time Status Last Admin Dose Admin Acetaminophen (Tylenol) 650 mg Q4H PRN ORAL Mild Pain/Temp > 100.5 09/03/19 00:45 09/24/19 12:44 09/04/19 12:26 Amlodipine Besylate (Norvasc) 5 mg DAILY ORAL 09/03/19 09:00 09/28/19 08:59 09/07/19 09:22 Aspirin (ASA) 81 mg DAILY ORAL 09/03/19 09:00 09/24/19 08:59 09/08/19 08:56 Carbidopa/Levodopa (Sinemet 10/100) 1 tab THREE TIMES A DAY ORAL 09/03/19 09:00 09/24/19 08:59 09/08/19 08:56 Ceftriaxone Sodium 2 gm/ Sodium Chloride 110 ml @ 220 mls/hr Q24HRS IVPB 09/06/19 21:00 09/12/19 20:59 09/07/19 21:03 Collagenase (Santyl) 1 applic DAILY TOPIC 09/06/19 17:00 10/06/19 16:59 09/08/19 08:57 Dextrose (Dextrose 50%) 25 ml Q30M PRN IV Hypoglycemia 09/03/19 00:15 09/23/19 19:14 Dextrose (Dextrose 50%) 50 ml Q30M PRN IV Hypoglycemia 09/03/19 00:15 09/23/19 19:14 Doxycycline Monohydrate (Doxycycline Monohydrate) 100 mg EVERY 12 HOURS ORAL 09/07/19 09:00 09/14/19 08:59 09/08/19 08:55 Furosemide (Lasix) 40 mg EVERY 12 HOURS ORAL 09/06/19 21:00 10/06/19 20:59 09/08/19 08:56 Insulin Aspart (NovoLOG) BEFORE MEALS AND HS SUBQ 09/03/19 06:30 09/29/19 20:59 09/07/19 17:17 Metronidazole (Flagyl) 500 mg Q8H ORAL 09/07/19 09:00 09/14/19 08:59 09/08/19 08:55 Gerardo Toledo MD Sep 08, 2019 13:27
--- NOTE | 2019-09-08 13:35 | General Progress Note ---
Assessment/Plan Problem List: (1) Urinary retention ICD Codes: R33.9 - Retention of urine, unspecified SNOMED: 115550397 (2) Renal insufficiency ICD Codes: N28.9 - Disorder of kidney and ureter, unspecified SNOMED: 404990632, 680941252 (3) NSTEMI (non-ST elevated myocardial infarction) ICD Codes: I21.4 - Non-ST elevation (NSTEMI) myocardial infarction SNOMED: 90627132, 368691955 (4) UTI (lower urinary tract infection) (5) Diabetes ICD Codes: E11.9 - Diabetes SNOMED: 75440642 (6) Parkinson disease ICD Codes: G20 - Parkinson disease SNOMED: 90922033 (7) Weakness generalized ICD Codes: R53.1 - Asthenia SNOMED: 63839418 (8) Sepsis (9) HTN (hypertension) ICD Codes: I10 - HTN (hypertension) SNOMED: 22194748 (10) Frailty ICD Codes: R54 - Frailty SNOMED: 763612077 (11) Dehydration (12) Urinary obstruction ICD Codes: N13.9 - Obstructive and reflux uropathy, unspecified SNOMED: 2078907 (13) ATN (acute tubular necrosis) ICD Codes: N17.0 - Acute kidney failure with tubular necrosis SNOMED: 02619195 (14) CVA (cerebral vascular accident) ICD Codes: I63.9 - Cerebral infarction, unspecified SNOMED: 518652874 Status: stable Assessment/Plan: Assessment/Plan: 84-year-old lady from [facility] with history of hypertension, uncontrolled diabetes, and Parkinson disease, who was brought to the emergency room by family member for altered mental status and weakness. Found to have severe sepsis due to ESBL UTI, group b strep bacteremia, ?endocarditis, OWEN vs OWEN on CKD and NSTEMI. Heart failure. BNP of more than 24,000. Echocardiogram Nl EF. ?HFpEF. developed hypernatremia. Hypokalemia. Plan: - heparin gtt per acs protocol, DC per cards, no chest pain, stable troponin. Continue ASA, beta lisbeth (Lopressor 25), hold off on statin due to rhabdomyolysis. Decreased Lopressor to 12.5 mg bid due to low heart rate, eventually had to stop due to bradycardia on 08/29 - trend tn/ekg - cardiology consult appreciated - TTE, normal EF, no vegetations, in view of strep bacteremia in 4/4 bottles, needs a ERIBERTO to r/o endocarditis (plan for Monday), per ID alternatively can treat empirically for 6 weeks total IV abx -surveillance cultures negative -monitor serum sodium, replace k as needed - ID consult appreciated - c/w empiric vanco/zosyn, switched to meropenem based on sensitivities . change to ceftriaxone for day # 14/28 for presumptive endocarditis treatment -doxycycline and flagyl added (09/07) for left foot infection - follow urine and blood cx's. 11/08 strep bacteremia with wbc 25k--> now 9, repeat blood cultures no growth to date - c/w PD regimen - A1c 9-->insulin sliding scale ac/hs, change to resistant scale, fsbg controlled - supportive care - delirium precautions -d/w ID -discuss goal of care with family, grand daughter [phone] -Add lasix 40 mg BID -General surgery consult appreciated. -Right foot xray without evidence of osteomyelitis, Left foot with possible osteo, not ruled out. -MRI left foot ordered for eval of osteomyelitis. Time spent on patient care, 37 mins, >50% on counseling and coordination of care Subjective Date patient seen: Sep 08, 2019 Time patient seen: 13:32 Constitutional: Denies: no symptoms, chills, diaphoresis, fever, malaise, weakness, other HEENT: Denies: no symptoms, eye pain, blurred vision, tearing, double vision, ear pain, ear discharge, nose pain, nose congestion, throat pain, throat swelling, mouth pain, mouth swelling, other Cardiovascular: Denies: no symptoms, chest pain, edema, irregular heart rate, lightheadedness, palpitations, syncope, other Respiratory: Denies: no symptoms, cough, orthopnea, shortness of breath, SOB with excertion, SOB at rest, sputum, stridor, wheezing, other Gastrointestinal/Abdominal: Denies: no symptoms, abdomen distended, abdominal pain, black stools, tarry stools, blood in stool, constipated, diarrhea, difficulty swallowing, nausea, poor appetite, poor fluid intake, rectal bleeding , vomiting, other Genitourinary: Denies: no symptoms, burning, discharge, frequency, flank pain, hematuria, incontinence, pain, urgency, other Neurologic/Psychiatric: Denies: no symptoms, anxiety, depressed, emotional problems, headache, numbness, paresthesia, pre-existing deficit, seizure, tingling, tremors, weakness, other Endocrine: Denies: no symptoms, excessive sweating, flushing, intolerance to cold, intolerance to heat, increased hunger, increased thirst, increased urine, unexplained weight gain, unexplained weight loss, other Hematologic/Lymphatic: Denies: no symptoms, anemia, easy bleeding, easy bruising, other Allergies: Coded Allergies: No Known Allergies (Unverified , 10/23/13) All Systems: reviewed and negative except above Subjective Resting comfortably, denies any issues. More lethargic. Objective Last 24 Hour Vital Signs Date Time Temp Pulse Resp B/P (MAP) Pulse Ox O2 Delivery O2 Flow Rate FiO2 09/08/19 12:00 98.0 77 18 112/52 (72) 100 09/08/19 12:00 73 09/08/19 09:00 Nasal Cannula 2.0 09/08/19 08:56 81 100/50 09/08/19 08:00 59 09/08/19 08:00 98.0 81 20 100/50 (67) 97 09/08/19 04:00 98.2 84 20 112/53 (72) 98 09/08/19 04:00 77 09/08/19 00:00 97.1 80 18 113/53 (73) 96 09/08/19 00:00 79 09/07/19 21:00 Room Air 09/07/19 20:00 98.1 76 18 115/65 (82) 98 09/07/19 20:00 78 09/07/19 16:00 89 09/07/19 16:00 98.2 89 18 125/58 (80) 94 Intake and Output 09/07/19 09/08/19 19:00 07:00 Intake Total 120 ml Output Total 1400 ml 200 ml Balance -1280 ml -200 ml Intake Oral 120 ml Output Urine Total 1400 ml 200 ml # Bowel Movements 1 Laboratory Tests 09/08/19 08:45: Vancomycin Level Trough 6.1 Height (Feet): 5 Height (Inches): 3.00 Weight (Pounds): 109 General Appearance: WD/WN, no apparent distress EENT: PERRL/EOMI Neck: supple Cardiovascular: normal rate, regular rhythm, no gallop/murmur Respiratory/Chest: lungs clear, normal breath sounds, no respiratory distress Abdomen: normal bowel sounds, non tender, soft Edema: no edema noted Arm (L), no edema noted Arm (R), no edema noted Leg (L), no edema noted Leg (R), no edema noted Pedal (L), no edema noted Pedal (R), no edema noted 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 Sep 08, 2019 13:35
[2019-09-08] MEDS ORDERED: Gadavist 7.5mMol/7.5ml vial IV PRN (13:45)
--- NOTE | 2019-09-08 15:33 | NUR ---
NURSE NOTES: Family at bedside. Dr. Rohit stacy. Addendum: 09/08/19 at 1937 by JUNIOR PEDRO RN Dr. Bee spoke with family.
[2019-09-08 16:00] VITALS: BP 107/49
[2019-09-08 16:24] LABS: BILIRUBIN, URINE NEGATIVE (NEGATIVE); COLOR,URINE PALE YELLOW; GLUCOSE, URINE (UA) NEGATIVE (NEGATIVE); KETONES,URINE NEGATIVE (NEGATIVE); LEUKOCYTE ESTERASE ,URINE 2+ (NEGATIVE); NITRITE,URINE NEGATIVE (NEGATIVE); PH,URINE 7 (4.5-8.0); PROTEIN,URINE 1+ (NEGATIVE); UROBILINOGEN,URINE NORMAL MG/DL (0.0-1.0)
[2019-09-08 16:26] LABS: APPEARANCE,URINE SLIGHTLY CLOUDY
--- NOTE | 2019-09-08 19:38 | NUR ---
HAND-OFF: Report given to Flip Monreal RN. Patient stable. Endorsed plan of care. Patient is doing better now and is less lethargic. Was able to eat 75% of dinner at 1800. Endorsed that ERIBERTO is scheduled for tomorrow and pt needs to be NPO. IV is patent and flushing. MRI scheduled for tomorrow and off tele order is needed. Arterial Duplex has not been performed.
[2019-09-08 20:00] VITALS: BP 100/50
[2019-09-08] MEDS: cefTRIAXone 2 GM in NS 110 ML IVPB SCH (20:39)
[2019-09-09] VITALS (10 sets, daily range): BP systolic 108–163; BP diastolic 47–78
[2019-09-09] MEDS: metroNIDAZOLE 500mg tab ORAL SCH ×3 (01:00→17:00)
[2019-09-09] MEDS: NovoLOG Insulin Flexpen SUBQ SCH ×4 (06:27→20:56)
[2019-09-09 07:02] LABS: ALANINE AMINOTRANSFERASE 8 U/L (12-78); ALBUMIN/GLOBULIN RATIO 0.4 (1.0-2.7); ALKALINE PHOSPHATASE 95 U/L (46-116); ANION GAP 7 mmol/L (5-15); ASPARTATE AMINO TRANSFERASE 29 U/L (15-37); BILIRUBIN,TOTAL 0.3 MG/DL (0.2-1.0); BLOOD UREA NITROGEN 14 mg/dL (7-18); CALCIUM 7.6 MG/DL (8.5-10.1); CARBON DIOXIDE 30 MMOL/L (21-32); CHLORIDE 98 MMOL/L (98-107); CREATININE 1.1 MG/DL (0.55-1.30); POTASSIUM 3.4 MMOL/L (3.5-5.1); SODIUM 135 MMOL/L (136-145)
[2019-09-09 07:05] LABS: BASOPHILS % (AUTO) 0.7 % (0.0-2.0); EOSINOPHILS % (AUTO) 0.8 % (0.0-3.0); HEMATOCRIT 25.7 % (37.0-47.0); HEMOGLOBIN 8.7 G/DL (12.0-16.0); LYMPHOCYTES % (AUTO) 29.8 % (20.0-45.0); MEAN CORPUSCULAR VOLUME 82 FL (80-99); MONOCYTES % (AUTO) 9.7 % (1.0-10.0); PLATELET COUNT 385 K/UL (150-450); RED BLOOD COUNT 3.13 M/UL (4.20-5.40); RED CELL DISTRIBUTION WIDTH 13.5 % (11.6-14.8)
--- NOTE | 2019-09-09 07:55 | Cardiac Electrophysiology PN ---
Assessment/Plan Assessment/Plan 1. Elevated troponin due to renal failure with creatinine 1.7. Troponins between 0.5 and 0.7. No CP. ECG left bundle-branch block. Echo Nl EF and no vegetations. On aspirin. Off statin in view of rhabdomyolysis. Off beta lisbeth for bradycardia 2. Hypertension. On Norvasc 5 and DC Lasix 3. LBBB and sinus dorian in 30s. Resolved off Lopressor 4. Nonsustained VT. 5. Heart failure. BNP of more than 24,000. Echocardiogram Nl EF. Could be HFpEF 6. Urinary tract infection, on IV antibiotic. 7. 4/4 Strep Bacteremia with WBC 25K. Down to 6 K. R/O endocarditis. ERIBERTO scheduled for today by Dr. New 8. Renal failure. Creatinine of 1.7. Normalized to 1.1. DC Lasix 9. Uncontrolled diabetes 10. Left toe diabetic ulcer. On iv Abx. Podiatry follow DW RN Subjective Subjective Remained in SR with LBBB. No CP or SOB.NPO for ERIBERTO today Objective Last 24 Hour Vital Signs Date Time Temp Pulse Resp B/P (MAP) Pulse Ox O2 Delivery O2 Flow Rate FiO2 09/09/19 04:00 98.2 82 18 125/61 (82) 95 09/09/19 04:00 81 09/09/19 00:00 86 09/09/19 00:00 98.4 87 20 133/60 (84) 95 09/08/19 21:00 Nasal Cannula 2.0 09/08/19 20:00 97.9 85 20 100/50 (67) 95 09/08/19 20:00 87 09/08/19 16:00 98.1 82 17 107/49 (68) 99 09/08/19 16:00 82 09/08/19 12:00 98.0 77 18 112/52 (72) 100 09/08/19 12:00 73 09/08/19 09:00 Nasal Cannula 2.0 09/08/19 08:56 81 100/50 09/08/19 08:00 59 09/08/19 08:00 98.0 81 20 100/50 (67) 97 Intake and Output 09/08/19 09/09/19 19:00 07:00 Intake Total 200 ml Output Total 1000 ml Balance -800 ml Intake Oral 200 ml Output Urine Total 1000 ml Laboratory Tests Test 09/08/19 08:45 09/08/19 15:45 09/09/19 06:15 Vancomycin Level Trough 6.1 ug/mL (5.0-12.0) Urine Color Pale yellow Urine Appearance Slightly cloudy Urine pH 7 (4.5-8.0) Urine Specific [place] 1.020 (1.005-1.035) Urine Protein 1+ (NEGATIVE) H Urine Glucose (UA) Negative (NEGATIVE) Urine Ketones Negative (NEGATIVE) Urine Blood 2+ (NEGATIVE) H Urine Nitrite Negative (NEGATIVE) Urine Bilirubin Negative (NEGATIVE) Urine Urobilinogen Normal MG/DL (0.0-1.0) Urine Leukocyte Esterase 2+ (NEGATIVE) H Urine RBC 5-10 /HPF (0 - 2) H Urine WBC 15-20 /HPF (0 - 2) H Urine Squamous Epithelial Cells Many /LPF (NONE/OCC) H Urine Bacteria Moderate /HPF (NONE) H Urine Yeast Few /HPF (NONE) H White Blood Count 6.0 K/UL (4.8-10.8) Red Blood Count 3.13 M/UL (4.20-5.40) L Hemoglobin 8.7 G/DL (12.0-16.0) L Hematocrit 25.7 % (37.0-47.0) L Mean Corpuscular Volume 82 FL (80-99) Mean Corpuscular Hemoglobin 27.7 PG (27.0-31.0) Mean Corpuscular Hemoglobin Concent 33.7 G/DL (32.0-36.0) Red Cell Distribution Width 13.5 % (11.6-14.8) Platelet Count 385 K/UL (150-450) Mean Platelet Volume 6.2 FL (6.5-10.1) L Neutrophils (%) (Auto) 59.0 % (45.0-75.0) Lymphocytes (%) (Auto) 29.8 % (20.0-45.0) Monocytes (%) (Auto) 9.7 % (1.0-10.0) Eosinophils (%) (Auto) 0.8 % (0.0-3.0) Basophils (%) (Auto) 0.7 % (0.0-2.0) Sodium Level 135 MMOL/L (136-145) L Potassium Level 3.4 MMOL/L (3.5-5.1) L Chloride Level 98 MMOL/L (98-107) Carbon Dioxide Level 30 MMOL/L (21-32) Anion Gap 7 mmol/L (5-15) Blood Urea Nitrogen 14 mg/dL (7-18) Creatinine 1.1 MG/DL (0.55-1.30) Estimat Glomerular Filtration Rate mL/min (>60) Glucose Level 129 MG/DL (74-106) H Calcium Level 7.6 MG/DL (8.5-10.1) L Total Bilirubin 0.3 MG/DL (0.2-1.0) Aspartate Amino Transf (AST/SGOT) 29 U/L (15-37) Alanine Aminotransferase (ALT/SGPT) 8 U/L (12-78) L Alkaline Phosphatase 95 U/L (46-116) Total Protein 7.4 G/DL (6.4-8.2) Albumin 2.0 G/DL (3.4-5.0) L Globulin 5.4 g/dL Albumin/Globulin Ratio 0.4 (1.0-2.7) L Microbiology Date/Time Source Procedure Growth Status 09/07/19 13:12 Foot Left Gram Stain - Final Resulted 09/07/19 13:12 Foot Left Wound Culture - Preliminary Resulted Objective HEAD AND NECK: No JVD LUNGS: Clear. CARDIOVASCULAR: Regular S1 and S2 with no gallop or murmur. ABDOMEN: Soft. EXTREMITIES: Left toe ulcer Luis Purdy MD Sep 09, 2019 07:55
--- NOTE | 2019-09-09 07:56 | Pre-Procedure Note/Attestation ---
Pre-Procedure Note/Attestation Complete Prior to Procedure Procedure Narrative: BACTEREMIA R/O ENDOCARDITIS Attestation I attest that I discussed the nature of the procedure; its benefits; risks and complications; and alternatives (and the risks and benefits of such alternatives ), prior to the procedure, with the patient (or the patient's legal sales representative public utilities). I attest that, if there was a reasonable possibility of needing a blood transfusion, the patient (or the patient's legal sales representative public utilities) was given the [facility] standardized written summary, pursuant to the [place] Blood Safety Act ([place] Health and Safety Code # 1645, as amended). I attest that I re-evaluated the patient just prior to the surgery and that there has been no change in the patient's H&P, except as documented below: Luis New MD Sep 09, 2019 07:56
--- NOTE | 2019-09-09 08:00 | NUR ---
NURSE NOTES: Nurse report given by ISHAAN Castelan. Patient's in stable condition, AO x 1, confused, no s/s of distress or SOB, no pain using FLACC score. Bed low and locked, call light within reach, side rails x 3, on P200 mattress, monitor technician is on. Wounds noted. IV is running fluid, no s/s of infiltration or tenderness. NPO at this time for ERIBERTO test. On Contact precaution. Will continue to monitor.
--- NOTE | 2019-09-09 08:00 | NUR ---
HAND-OFF: Report given to Lorena QUIROS.
--- NOTE | 2019-09-09 08:08 | Brief Operative Note ---
Immediate Post Operative Note Operative Note Chief Complaint: ams Pre-op Diagnosis: STREP BACTEREMIA Procedure: ERIBERTO Post-op Diagnosis: NO EVIDENCE FOR INFECTIVE ENDOCARDITIS Surgeon: JIN NEW MD Dental Tech: NONE Anesthesia: general Specimen: none Complications: none Condition: stable Fluids: NONE Estimated Blood Loss: none Drains: none Implant(s) used?: No Jin New MD Sep 09, 2019 08:08
--- NOTE | 2019-09-09 08:15 | Anethesia Preoperative Eval ---
Anesthesia Pre-op PMH/ROS General Date of Evaluation: Sep 09, 2019 Time of Evaluation: 08:12 Anesthesiologist: Donato ASA Score: ASA 4 Mallampati Score Class I : Soft palate, uvula, fauces, pillars visible Class II: Soft palate, uvula, fauces visible Class III: Soft palate, base of uvula visible Class IV: Only hard plate visible Mallampati Classification: Class III Surgeon: Shaq Diagnosis: Bacteremia Surgical Procedure: ERIBERTO Anesthesia History: none Family History: no anesthesia problems Allergies: Coded Allergies: No Known Allergies (Unverified , 10/23/13) Medications: see eMAR Patient NPO?: Yes Past Medical History Cardiovascular: Reports: HTN, CAD; Denies: VA, valve dz, arrhythmia, other Pulmonary: Denies: asthma, COPD, MIKIE, other Gastrointestinal/Genitourinary: Reports: GERD, CRI; Denies: ESRD, other Neurologic/Psychiatric: Reports: dementia, other - Parkinsons; Denies: CVA, depression/anxiety, TIA Endocrine: Reports: DM, hypothyroidism; Denies: steroids, other HEENT: Denies: cataract (L), cataract (R), glaucoma, LA POSTA (L), LA POSTA (R), other Hematology/Immune: Reports: anemia; Denies: DVT, bleeding disorder, other Musculoskeletal/Integumentary: Reports: OA; Denies: RA, DJD, DDD, edema, other Other: other - malnourished PMH Narrative: as above PSxH Narrative: see H&P Anesthesia Pre-op Phys. Exam Physician Exam Last Vital Signs Date Time Temp Pulse Resp B/P (MAP) Pulse Ox O2 Delivery O2 Flow Rate FiO2 09/09/19 08:00 98.2 69 18 108/64 (79) 93 09/08/19 21:00 Nasal Cannula 2.0 Constitutional: NAD Neurologic: other - unable to obtaine Cardiovascular: RRR Respiratory: CTA Gastrointestinal: S/NT/ND Airway Exam Mallampati Score: Class III MO: limited Neck: stiff Teeth: missing, broken Dentures: no upper, no lower Anesthesia Pre-op A/P Labs Hematology Test 09/09/19 06:15 White Blood Count 6.0 K/UL (4.8-10.8) Red Blood Count 3.13 M/UL (4.20-5.40) L Hemoglobin 8.7 G/DL (12.0-16.0) L Hematocrit 25.7 % (37.0-47.0) L Mean Corpuscular Volume 82 FL (80-99) Mean Corpuscular Hemoglobin 27.7 PG (27.0-31.0) Mean Corpuscular Hemoglobin Concent 33.7 G/DL (32.0-36.0) Red Cell Distribution Width 13.5 % (11.6-14.8) Platelet Count 385 K/UL (150-450) Mean Platelet Volume 6.2 FL (6.5-10.1) L Neutrophils (%) (Auto) 59.0 % (45.0-75.0) Lymphocytes (%) (Auto) 29.8 % (20.0-45.0) Monocytes (%) (Auto) 9.7 % (1.0-10.0) Eosinophils (%) (Auto) 0.8 % (0.0-3.0) Basophils (%) (Auto) 0.7 % (0.0-2.0) Chemistry Test 09/09/19 06:15 Sodium Level 135 MMOL/L (136-145) L Potassium Level 3.4 MMOL/L (3.5-5.1) L Chloride Level 98 MMOL/L (98-107) Carbon Dioxide Level 30 MMOL/L (21-32) Anion Gap 7 mmol/L (5-15) Blood Urea Nitrogen 14 mg/dL (7-18) Creatinine 1.1 MG/DL (0.55-1.30) Estimat Glomerular Filtration Rate mL/min (>60) Glucose Level 129 MG/DL (74-106) H Calcium Level 7.6 MG/DL (8.5-10.1) L Total Bilirubin 0.3 MG/DL (0.2-1.0) Aspartate Amino Transf (AST/SGOT) 29 U/L (15-37) Alanine Aminotransferase (ALT/SGPT) 8 U/L (12-78) L Alkaline Phosphatase 95 U/L (46-116) Total Protein 7.4 G/DL (6.4-8.2) Albumin 2.0 G/DL (3.4-5.0) L Globulin 5.4 g/dL Albumin/Globulin Ratio 0.4 (1.0-2.7) L Studies Pre-op Studies: EKG - LBBB Risk Assessment & Plan Assessment: ASA 4 Plan: Law Toney MD Sep 09, 2019 08:15
--- NOTE | 2019-09-09 08:26 | Immediate Post-Op Evaluation ---
Immediate Post-Op Evalulation Immediate Post-Op Evalulation Procedure: ERIBERTO Date of Evaluation: Sep 09, 2019 Time of Evaluation: 08:25 IV Fluids: 150 Blood Products: none Estimated Blood Loss: none Urinary Output: none Blood Pressure Systolic: 146 Blood Pressure Diastolic: 72 Pulse Rate: 84 Respiratory Rate: 22 O2 Sat by Pulse Oximetry: 98 Temperature (Fahrenheit): 97.6 Pain Score (1-10): 1 Nausea: No Vomiting: No Complications none Patient Status: reacts, patent, none Hydration Status: adequate Law Sewell MD Sep 09, 2019 08:26
[2019-09-09] MEDS: Aspirin Baby 81mg ORAL SCH (09:00)
[2019-09-09] MEDS: Doxycycline Monohydrate 100mg ORAL SCH ×2 (09:00→20:55)
[2019-09-09] MEDS: Levodopa/Carbidopa 10/100 tab ORAL SCH ×3 (09:00→18:00)
--- NOTE | 2019-09-09 09:06 | General Progress Note ---
Assessment/Plan Problem List: (1) Bacteremia due to group B Streptococcus ICD Codes: R78.81 - Bacteremia SNOMED: 594824955901 (2) Severe sepsis ICD Codes: A41.9 - Sepsis, unspecified organism; R65.20 - Severe sepsis without septic shock SNOMED: 77042469 (3) Toxic metabolic encephalopathy ICD Codes: G92 - Toxic encephalopathy SNOMED: 489745715 (4) Diabetes mellitus with hyperglycemia ICD Codes: E11.65 - Type 2 diabetes mellitus with hyperglycemia SNOMED: 08582579, 40036098 (5) OWEN (acute kidney injury) ICD Codes: N17.9 - Acute kidney failure, unspecified SNOMED: 5996766, 44328832 (6) NSTEMI (non-ST elevated myocardial infarction) ICD Codes: I21.4 - Non-ST elevation (NSTEMI) myocardial infarction SNOMED: 36757938, 803093898 (7) Urinary tract infection due to ESBL Klebsiella ICD Codes: N39.0 - Urinary tract infection, site not specified; B96.89 - Other specified bacterial agents as the cause of diseases classified elsewhere SNOMED: 862069924, 772500605320918 (8) Suspected acute on chronic CHF (9) Decubitus skin ulcer ICD Codes: L89.90 - Pressure ulcer of unspecified site, unspecified stage SNOMED: 186944775 (10) ATN (acute tubular necrosis) ICD Codes: N17.0 - Acute kidney failure with tubular necrosis SNOMED: 71994893 (11) Parkinson disease ICD Codes: G20 - Parkinson disease SNOMED: 77770176 (12) Bedbug bite ICD Codes: W57.XXXA - Bitten or stung by nonvenomous insect and other nonvenomous arthropods, initial encounter SNOMED: 333782159 (13) Hypernatremia ICD Codes: E87.0 - Hyperosmolality and hypernatremia SNOMED: 860352735 (14) Hypokalemia ICD Codes: E87.6 - Hypokalemia SNOMED: 90627504 Status: stable Assessment/Plan: 84-year-old lady from [facility] with history of hypertension, uncontrolled diabetes, and Parkinson disease, who was brought to the emergency room by family member for altered mental status and weakness. Found to have severe sepsis due to ESBL UTI, group b strep bacteremia, ?endocarditis, OWEN vs OWEN on CKD and NSTEMI. Heart failure. BNP of more than 24,000. Echocardiogram Nl EF. ?HFpEF. developed hypernatremia. Hypokalemia. Now left foot/1st toe DM infection Plan: - heparin gtt per acs protocol, DC per cards, no chest pain, stable troponin. Continue ASA, beta lisbeth (Lopressor 25), hold off on statin due to rhabdomyolysis. Decreased Lopressor to 12.5 mg bid due to low heart rate, eventually had to stop due to bradycardia on 08/29 - trend tn/ekg - cardiology consult appreciated - TTE, normal EF, no vegetations, in view of strep bacteremia in 11/08 bottles, needs a ERIBERTO to r/o endocarditis (plan for today by Dr. New), per ID alternatively can treat empirically for 6 weeks total IV abx -surveillance cultures negative -monitor serum sodium, replace k as needed - ID consult appreciated - c/w empiric vanco/zosyn, switched to meropenem based on sensitivities . change to ceftriaxone for day # 15/ for presumptive endocarditis treatment -doxycycline and flagyl added (09/07) for left foot infection. -Follow up Left foot MRI and arterial studies for possible left foot osteo on xray - follow urine and blood cx's. 11/08 strep bacteremia with wbc 25k--> now 9, repeat blood cultures no growth to date - c/w PD regimen - A1c 9-->insulin sliding scale ac/hs, change to resistant scale, fsbg controlled - supportive care - delirium precautions -d/w ID -discuss goal of care with family, grand daughter [phone] -Add lasix 40 mg BID -General surgery consult appreciated. Time spent on patient care, 37 mins, >50% on counseling and coordination of care Time of this note may not reflect the time of the clinical encounter. Subjective Date patient seen: Sep 09, 2019 ROS Limited/Unobtainable: Yes Allergies: Coded Allergies: No Known Allergies (Unverified , 10/23/13) Subjective poor historian. following up for severe sepsis, group b strep bacteremia, ? endocarditis, ESBL UTI, OWEN, NSTEMI. Denies any chest pain or sob, alert and awake, LBBB, episodes of vtach. DM foot ulcer Objective Last 24 Hour Vital Signs Date Time Temp Pulse Resp B/P (MAP) Pulse Ox O2 Delivery O2 Flow Rate FiO2 09/09/19 08:51 69 108/64 09/09/19 08:45 98.2 80 17 158/75 99 Nasal Cannula 3 09/09/19 08:35 80 16 163/77 99 Nasal Cannula 3 09/09/19 08:30 78 17 158/73 99 Nasal Cannula 3 09/09/19 08:26 84 22 98 09/09/19 08:23 97.7 80 14 156/78 99 Nasal Cannula 3 09/09/19 08:00 98.2 69 18 108/64 (79) 93 09/09/19 04:00 98.2 82 18 125/61 (82) 95 09/09/19 04:00 81 09/09/19 00:00 86 09/09/19 00:00 98.4 87 20 133/60 (84) 95 09/08/19 21:00 Nasal Cannula 2.0 09/08/19 20:00 97.9 85 20 100/50 (67) 95 09/08/19 20:00 87 09/08/19 16:00 98.1 82 17 107/49 (68) 99 09/08/19 16:00 82 09/08/19 12:00 98.0 77 18 112/52 (72) 100 09/08/19 12:00 73 Intake and Output 09/08/19 09/09/19 19:00 07:00 Intake Total 200 ml Output Total 1000 ml Balance -800 ml Intake Oral 200 ml Output Urine Total 1000 ml Laboratory Tests 09/08/19 15:45: Urine Color Pale yellow, Urine Appearance Slightly cloudy, Urine pH 7, Urine Specific [place] 1.020, Urine Protein 1+H, Urine Glucose (UA) Negative, Urine Ketones Negative, Urine Blood 2+H, Urine Nitrite Negative, Urine Bilirubin Negative, Urine Urobilinogen Normal, Urine Leukocyte Esterase 2+H, Urine RBC 5- 10H, Urine WBC 15-20H, Urine Squamous Epithelial Cells ManyH, Urine Bacteria ModerateH, Urine Yeast FewH 09/09/19 06:15: White Blood Count 6.0, Red Blood Count 3.13L, Hemoglobin 8.7L, Hematocrit 25.7L , Mean Corpuscular Volume 82, Mean Corpuscular Hemoglobin 27.7, Mean Corpuscular Hemoglobin Concent 33.7, Red Cell Distribution Width 13.5, Platelet Count 385, Mean Platelet Volume 6.2L, Neutrophils (%) (Auto) 59.0, Lymphocytes ( %) (Auto) 29.8, Monocytes (%) (Auto) 9.7, Eosinophils (%) (Auto) 0.8, Basophils (%) (Auto) 0.7, Sodium Level 135L, Potassium Level 3.4L, Chloride Level 98, Carbon Dioxide Level 30, Anion Gap 7, Blood Urea Nitrogen 14, Creatinine 1.1, Estimat Glomerular Filtration Rate , Glucose Level 129H, Calcium Level 7.6L, Total Bilirubin 0.3, Aspartate Amino Transf (AST/SGOT) 29, Alanine Aminotransferase (ALT/SGPT) 8L, Alkaline Phosphatase 95, Total Protein 7.4, Albumin 2.0L, Globulin 5.4, Albumin/Globulin Ratio 0.4L Height (Feet): 5 Height (Inches): 3.00 Weight (Pounds): 109 Objective General Appearance: WD/WN, no apparent distress, awake, confused HEENT: normocephalic, atraumatic, PERRL, EOMI, supple, no JVD Neck: non-tender, normal alignment, supple Respiratory/Chest: chest wall non-tender, lungs clear, normal breath sounds, no respiratory distress, no accessory muscle use Cardiovascular/Chest: normal peripheral pulses, normal rate, regular rhythm, no gallop/murmur, no JVD Abdomen: non tender, soft, no organomegaly Extremities: no edema, no cyanosis Neurologic: disoriented Skin: +debuts, + left foot/1st toe ulcer/Eschar. Chago Lyons M.D. Sep 09, 2019 09:06
--- NOTE | 2019-09-09 09:32 | 48 Hour Post Anesthesia Eval ---
Post Anesthesia Evaluation Procedure: ERIBERTO Date of Evaluation: Sep 09, 2019 Time of Evaluation: 09:30 Blood Pressure Systolic: 148 0: 74 Pulse Rate: 82 Respiratory Rate: 20 Temperature (Fahrenheit): 97.5 O2 Sat by Pulse Oximetry: 98 Airway: patent Nausea: No Vomiting: No Pain Intensity: 1 Hydration Status: adequate Cardiopulmonary Status: stable Mental Status/LOC: patient returned to baseline Follow-up Care/Observations: n/a Post-Anesthesia Complications: none Follow-up care needed: N/A Law Sewell MD Sep 09, 2019 09:31
--- NOTE | 2019-09-09 10:08 | NUR ---
CASE MANAGEMENT:REVIEW 09/09/19 SI: SEPSIS D/T STREP BACTEREMIA ENCEPHALOPATHY. NSTEMI. ERIBERTO(-) 98.0 80 18 129/55 96% ON RA H/H-8.0/24.4 IS: IV ROCEPHIN Q24 FLAGYL PO Q8HRS DOXYCYCLINE PO Q12 NORVASC PO QD ASA PO QD : TELEMETRY STATUS DCP: FROM HOME
--- NOTE | 2019-09-09 10:34 | NUR ---
MRI LEFT FOOT W/O COMPLETED. PT GFR (30) TOO LOW FOR CONTRAST. ALSO, PT UNABLE TO SIGN CONSENT. TJB 10:36
--- NOTE | 2019-09-09 11:03 | Surgery Progress Note ---
Surgery Progress Note Subjective Additional Comments no acute events labs stable exam stable Objective Last 24 Hour Vital Signs Date Time Temp Pulse Resp B/P (MAP) Pulse Ox O2 Delivery O2 Flow Rate FiO2 09/09/19 09:32 82 20 98 09/09/19 09:00 Nasal Cannula 2.0 09/09/19 08:51 69 108/64 09/09/19 08:45 98.2 80 17 158/75 99 Nasal Cannula 3 09/09/19 08:35 80 16 163/77 99 Nasal Cannula 3 09/09/19 08:30 78 17 158/73 99 Nasal Cannula 3 09/09/19 08:26 84 22 98 09/09/19 08:23 97.7 80 14 156/78 99 Nasal Cannula 3 09/09/19 08:00 98.2 69 18 108/64 (79) 93 09/09/19 08:00 81 09/09/19 04:00 98.2 82 18 125/61 (82) 95 09/09/19 04:00 81 09/09/19 00:00 86 09/09/19 00:00 98.4 87 20 133/60 (84) 95 09/08/19 21:00 Nasal Cannula 2.0 09/08/19 20:00 97.9 85 20 100/50 (67) 95 09/08/19 20:00 87 09/08/19 16:00 98.1 82 17 107/49 (68) 99 09/08/19 16:00 82 09/08/19 12:00 98.0 77 18 112/52 (72) 100 09/08/19 12:00 73 I&O Intake and Output 09/08/19 09/09/19 19:00 07:00 Intake Total 200 ml Output Total 1000 ml Balance -800 ml Intake Oral 200 ml Output Urine Total 1000 ml Dressing: saturated Wound: other Drains: other Cardiovascular: RSR Respiratory: decreased breath sounds Abdomen: soft, present bowel sounds, non-distended Extremities: edema, tenderness, no cyanosis, other Laboratory Tests Test 09/08/19 15:45 09/09/19 06:15 Urine Color Pale yellow Urine Appearance Slightly cloudy Urine pH 7 (4.5-8.0) Urine Specific [place] 1.020 (1.005-1.035) Urine Protein 1+ (NEGATIVE) H Urine Glucose (UA) Negative (NEGATIVE) Urine Ketones Negative (NEGATIVE) Urine Blood 2+ (NEGATIVE) H Urine Nitrite Negative (NEGATIVE) Urine Bilirubin Negative (NEGATIVE) Urine Urobilinogen Normal MG/DL (0.0-1.0) Urine Leukocyte Esterase 2+ (NEGATIVE) H Urine RBC 5-10 /HPF (0 - 2) H Urine WBC 15-20 /HPF (0 - 2) H Urine Squamous Epithelial Cells Many /LPF (NONE/OCC) H Urine Bacteria Moderate /HPF (NONE) H Urine Yeast Few /HPF (NONE) H White Blood Count 6.0 K/UL (4.8-10.8) Red Blood Count 3.13 M/UL (4.20-5.40) L Hemoglobin 8.7 G/DL (12.0-16.0) L Hematocrit 25.7 % (37.0-47.0) L Mean Corpuscular Volume 82 FL (80-99) Mean Corpuscular Hemoglobin 27.7 PG (27.0-31.0) Mean Corpuscular Hemoglobin Concent 33.7 G/DL (32.0-36.0) Red Cell Distribution Width 13.5 % (11.6-14.8) Platelet Count 385 K/UL (150-450) Mean Platelet Volume 6.2 FL (6.5-10.1) L Neutrophils (%) (Auto) 59.0 % (45.0-75.0) Lymphocytes (%) (Auto) 29.8 % (20.0-45.0) Monocytes (%) (Auto) 9.7 % (1.0-10.0) Eosinophils (%) (Auto) 0.8 % (0.0-3.0) Basophils (%) (Auto) 0.7 % (0.0-2.0) Sodium Level 135 MMOL/L (136-145) L Potassium Level 3.4 MMOL/L (3.5-5.1) L Chloride Level 98 MMOL/L (98-107) Carbon Dioxide Level 30 MMOL/L (21-32) Anion Gap 7 mmol/L (5-15) Blood Urea Nitrogen 14 mg/dL (7-18) Creatinine 1.1 MG/DL (0.55-1.30) Estimat Glomerular Filtration Rate mL/min (>60) Glucose Level 129 MG/DL (74-106) H Calcium Level 7.6 MG/DL (8.5-10.1) L Total Bilirubin 0.3 MG/DL (0.2-1.0) Aspartate Amino Transf (AST/SGOT) 29 U/L (15-37) Alanine Aminotransferase (ALT/SGPT) 8 U/L (12-78) L Alkaline Phosphatase 95 U/L (46-116) Total Protein 7.4 G/DL (6.4-8.2) Albumin 2.0 G/DL (3.4-5.0) L Globulin 5.4 g/dL Albumin/Globulin Ratio 0.4 (1.0-2.7) L Plan Problems: (1) Decubitus skin ulcer Assessment & Plan: Pt presented on admission with multiple pressure injuries. DTPI Sacrum (L)10cm x (W)9cm with small slit at sacrococcygeal area(L)0.5cm- small amt sanguineous exudate noted.Base of wound is maroon and indurated. Two Unstageable pressure injuries in close proximity noted to L hip. Base of each wound is necrotic and soft with marginal erythema.(L)2cm x (W)3.7cm NO erythema or odor noted. Historical Scar noted at L hip in close proximity to wound. L heel boggy with non-blanching erythema.(L)4cm x (W)4.5cm R heel boggy with non-blanching erythema.(L)5cm x (W)6cm. Pt noted to have several small black droppings in bed. Upon further inspection. Single small brownish bug observed crawling in bed. At posterior aspect of neck pt noted to have macular red rash.Red rash also noted to L axilla .Complete bed Bath provided.And all bed linen removed and mattress sanitized. EVS was notified by Primary nurse. left great toe with eschar now soft and draining pus. cultured Tx.plan: Apply Moisture Barrier Paste to Sacrum. Cover with Optifoam drsg. Change every 3 days and prn. Cleanse L hip with Saline. Apply Therahoney. Apply Cavilon Skin Barrier periwound.Cover with Optifoam drsg. Change every 3 days and prn. Apply Cavilon Skin Barrier to both heels. Cover each heel with Optifoam drsg. Change every 7 days and prn. APM/YURIY mattress overlay. Reposition at least every 2hours or as tolerated. Off-load heels with pillow. podiatry eval wash left foot daily, apply Betadine to eschar and gauze (2) Sepsis Assessment & Plan: Leukocytosis, abnormal labs, tachycardic, per report fevers UA identified urosepsis bacteremic leukocytosis resolved improving overall anemia fevers resolved On antibiotics as per infectious disease Trend labs Okay for diet A.m. labs Wounds unlikely etiology of sepsis as they are chronic and do not look actively infected discussed with medical teams discussed with podiatry plan for abx d/c planning cont abx We will follow with recommendations thank you for let me participate in patient' s care Darrius Miller Sep 09, 2019 11:03
--- NOTE | 2019-09-09 11:35 | NUR ---
PT NOTE Received MD order for PT evaluation. Attempted to see patient for PT evaluation. Patient lethargic, does not open eyes to verbal stimuli. Patient unable to participate with PT evaluation at this time. Lorena QUIROS notified, will follow up tomorrow.
--- NOTE | 2019-09-09 11:37 | Infectious Diseases Prog Note ---
Assessment/Plan Assessment/Plan ASSESSMENT AND PLAN: 1. streptococcus agalactiae - group b bacteremia, ? endocarditis, esbl e.coli uti, sirs, leukocytosis, ? pna on chest x-ray - ? hcap/aspiration vs pulmonary edema, left foot great toe/1st toe wound infection, cannot rule osteo osteomyelitis on x-ray left foot - ceftriaxone for presumptive endocarditis, doxycycline and flagyl added for possible left foot great toe osteomyelitis - ERIBERTO neg for vegetation - await MRI of right foot - wound culture right foot with normal maximino - arterial studies ordered 2. Acute kidney injury with elevated creatinine. 3. History of diabetes. 4. weakness 5. Blood pressure treatment per primary care team and diabetes treatment per primary care team and consultants. 6. Parkinson's. 7. Dementia. 8. The patient does have also elevated troponin. Cardiology follow-up. 9. MAR was noted. 10. Case was discussed with RN. 11. No known allergies. 12. Social history is negative. 13. Family history is noncontributory. 14. Continue treatment per primary consultants. 15. Orders were noted and entered. Subjective Constitutional: Denies: fever HEENT: Denies: congestion Respiratory: Denies: shortness of breath Cardiovascular: Denies: chest pain Gastrointestinal/Abdominal: Denies: nausea, vomiting Genitourinary: Reports: other - + arnold Hematologic: Denies: bleeding Allergies: Coded Allergies: No Known Allergies (Unverified , 10/23/13) Objective Vital Signs Last 24 Hour Vital Signs Date Time Temp Pulse Resp B/P (MAP) Pulse Ox O2 Delivery O2 Flow Rate FiO2 09/09/19 09:32 82 20 98 09/09/19 09:00 Nasal Cannula 2.0 09/09/19 08:51 69 108/64 09/09/19 08:45 98.2 80 17 158/75 99 Nasal Cannula 3 09/09/19 08:35 80 16 163/77 99 Nasal Cannula 3 09/09/19 08:30 78 17 158/73 99 Nasal Cannula 3 09/09/19 08:26 84 22 98 09/09/19 08:23 97.7 80 14 156/78 99 Nasal Cannula 3 09/09/19 08:00 98.2 69 18 108/64 (79) 93 09/09/19 08:00 81 09/09/19 04:00 98.2 82 18 125/61 (82) 95 09/09/19 04:00 81 09/09/19 00:00 86 09/09/19 00:00 98.4 87 20 133/60 (84) 95 09/08/19 21:00 Nasal Cannula 2.0 09/08/19 20:00 97.9 85 20 100/50 (67) 95 09/08/19 20:00 87 09/08/19 16:00 98.1 82 17 107/49 (68) 99 09/08/19 16:00 82 09/08/19 12:00 98.0 77 18 112/52 (72) 100 09/08/19 12:00 73 Height (Feet): 5 Height (Inches): 3.00 Weight (Pounds): 109 General Appearance: no acute distress HEENT: normocephalic, atraumatic, anicteric Respiratory/Chest: lungs clear, normal breath sounds, no respiratory distress Cardiovascular: normal rate, regular rhythm, no gallop/murmur Abdomen: normal bowel sounds, soft, non tender, no organomegaly Objective Chest x-ray - FINDINGS: Lungs: Mild vascular congestion. Pleural space: Unremarkable. No pneumothorax. Heart: Borderline cardiomegaly, potentially exaggerated by portable technique. Mediastinum: Calcified aorta. Bones/joints: Osteopenia. Degenerative changes. IMPRESSION: Mild vascular congestion CT abdomen: Impression: Anasarca, as described, with generalized edema of subcutaneous abdominal fat, moderate-sized bilateral pleural effusions, pulmonary interstitial and airspace edema Compressive atelectasis of the lower lobes due to the pleural fluid Evidence of rectal fecal impaction and possible stercoral proctitis Pessary, likely malpositioned, as described. There is evidence of bladder floor relaxation despite the pessary Dilated extrahepatic bile ducts. Most likely related to patient's age as no downstream obstructive lesion is demonstrated. However, correlation with liver function tests is recommended, with consideration for MRCP if clinically indicated Questionable slight retrococcygeal decubitus changes. Correlate with findings Other findings as noted, including evidence of prior renal cortical scarring, Arnold catheter, uterine arcuate artery calcifications Chest x-ray - 09/05/19 - Indication: Cough Technique: One view of the chest Comparison: 08/24/2019 Findings: There is increased interstitial edema. There is evidence of left perihilar airspace disease There is suggestion of trace bilateral pleural effusions. The heart size is upper limits normal. Impression: Increased interstitial edema, since prior exam 08/24/2019 Suspect left perihilar consolidation Small bilateral pleural effusions Chest x-ray - 09/07/19 - IMPRESSION: 1. Interval mild improvement in the diffusely increased interstitial markings compared to the prior exam, suggesting improved pulmonary interstitial edema. 2. Linear atelectasis at the periphery of the left mid lung. 3. Possible small left pleural effusion. Microbiology Date/Time Source Procedure Growth Status 09/08/19 15:45 Urine,Clean Catch Urine Culture - Preliminary NO GROWTH Resulted 09/07/19 13:12 Foot Left Gram Stain - Final Complete 09/07/19 13:12 Wound Culture - Final Usual Skin Maximino Complete Laboratory Tests Test 09/08/19 15:45 09/09/19 06:15 Urine Color Pale yellow Urine Appearance Slightly cloudy Urine pH 7 (4.5-8.0) Urine Specific [place] 1.020 (1.005-1.035) Urine Protein 1+ (NEGATIVE) H Urine Glucose (UA) Negative (NEGATIVE) Urine Ketones Negative (NEGATIVE) Urine Blood 2+ (NEGATIVE) H Urine Nitrite Negative (NEGATIVE) Urine Bilirubin Negative (NEGATIVE) Urine Urobilinogen Normal MG/DL (0.0-1.0) Urine Leukocyte Esterase 2+ (NEGATIVE) H Urine RBC 5-10 /HPF (0 - 2) H Urine WBC 15-20 /HPF (0 - 2) H Urine Squamous Epithelial Cells Many /LPF (NONE/OCC) H Urine Bacteria Moderate /HPF (NONE) H Urine Yeast Few /HPF (NONE) H White Blood Count 6.0 K/UL (4.8-10.8) Red Blood Count 3.13 M/UL (4.20-5.40) L Hemoglobin 8.7 G/DL (12.0-16.0) L Hematocrit 25.7 % (37.0-47.0) L Mean Corpuscular Volume 82 FL (80-99) Mean Corpuscular Hemoglobin 27.7 PG (27.0-31.0) Mean Corpuscular Hemoglobin Concent 33.7 G/DL (32.0-36.0) Red Cell Distribution Width 13.5 % (11.6-14.8) Platelet Count 385 K/UL (150-450) Mean Platelet Volume 6.2 FL (6.5-10.1) L Neutrophils (%) (Auto) 59.0 % (45.0-75.0) Lymphocytes (%) (Auto) 29.8 % (20.0-45.0) Monocytes (%) (Auto) 9.7 % (1.0-10.0) Eosinophils (%) (Auto) 0.8 % (0.0-3.0) Basophils (%) (Auto) 0.7 % (0.0-2.0) Sodium Level 135 MMOL/L (136-145) L Potassium Level 3.4 MMOL/L (3.5-5.1) L Chloride Level 98 MMOL/L (98-107) Carbon Dioxide Level 30 MMOL/L (21-32) Anion Gap 7 mmol/L (5-15) Blood Urea Nitrogen 14 mg/dL (7-18) Creatinine 1.1 MG/DL (0.55-1.30) Estimat Glomerular Filtration Rate mL/min (>60) Glucose Level 129 MG/DL (74-106) H Calcium Level 7.6 MG/DL (8.5-10.1) L Total Bilirubin 0.3 MG/DL (0.2-1.0) Aspartate Amino Transf (AST/SGOT) 29 U/L (15-37) Alanine Aminotransferase (ALT/SGPT) 8 U/L (12-78) L Alkaline Phosphatase 95 U/L (46-116) Total Protein 7.4 G/DL (6.4-8.2) Albumin 2.0 G/DL (3.4-5.0) L Globulin 5.4 g/dL Albumin/Globulin Ratio 0.4 (1.0-2.7) L Current Medications Medications (Trade) Dose Ordered Sig/Krystin Route PRN Reason Start Time Stop Time Status Last Admin Dose Admin Acetaminophen (Tylenol) 650 mg Q4H PRN ORAL Mild Pain/Temp > 100.5 09/03/19 00:45 09/24/19 12:44 09/04/19 12:26 Amlodipine Besylate (Norvasc) 5 mg DAILY ORAL 09/03/19 09:00 09/28/19 08:59 09/07/19 09:22 Aspirin (ASA) 81 mg DAILY ORAL 09/03/19 09:00 09/24/19 08:59 09/08/19 08:56 Carbidopa/Levodopa (Sinemet 10/100) 1 tab THREE TIMES A DAY ORAL 09/03/19 09:00 09/24/19 08:59 09/08/19 17:07 Ceftriaxone Sodium 2 gm/ Sodium Chloride 110 ml @ 220 mls/hr Q24HRS IVPB 09/06/19 21:00 09/20/19 20:59 09/08/19 20:39 Collagenase (Santyl) 1 applic DAILY TOPIC 09/06/19 17:00 10/06/19 16:59 09/08/19 08:57 Dextrose (Dextrose 50%) 25 ml Q30M PRN IV Hypoglycemia 09/03/19 00:15 09/23/19 19:14 Dextrose (Dextrose 50%) 50 ml Q30M PRN IV Hypoglycemia 09/03/19 00:15 09/23/19 19:14 Doxycycline Monohydrate (Doxycycline Monohydrate) 100 mg EVERY 12 HOURS ORAL 09/07/19 09:00 09/14/19 08:59 09/08/19 20:39 Gadobutrol (Gadavist) 7.5 mmol NOW PRN IV Radiology Procedure 09/08/19 13:45 09/12/19 13:31 Insulin Aspart (NovoLOG) BEFORE MEALS AND HS SUBQ 09/03/19 06:30 09/29/19 20:59 09/07/19 17:17 Metronidazole (Flagyl) 500 mg Q8H ORAL 09/07/19 09:00 09/14/19 08:59 09/08/19 17:07 Sodium Chloride 1,000 ml @ 30 mls/hr Q24H IV 09/08/19 16:45 10/08/19 16:44 09/08/19 17:07 Gerardo Toledo MD Sep 09, 2019 11:37
[2019-09-09] MEDS ORDERED: fentaNYL 100 mcg/2 mL IV ONE (12:44)
--- NOTE | 2019-09-09 12:45 | Consultation ---
DATE OF CONSULTATION: 09/08/2019 INVASIVE CARDIOLOGY CONSULTATION CONSULTING PHYSICIAN: Luis New M.D. REFERRING PHYSICIAN: Kendra Butler M.D. REASON FOR CONSULTATION: Evaluation for transesophageal echocardiography in a patient with Streptococcal agalactiae bacteremia. HISTORY OF PRESENT ILLNESS: The patient is a very unfortunate 84-year-old lady, who was initially admitted on August 24, 2019 with altered level of consciousness and elevated troponin I level. The patient was seen by training and documentation specialist Dr. Luis Purdy. A 2D echocardiography was done, which showed normal LV systolic function. The patient has short runs of nonsustained ventricular tachycardia. However, evaluation of altered mental status concluded bacteremia with Streptococcal agalactiae Group B. Infectious Disease requested for transesophageal echocardiography to rule out endocarditis. Unfortunately, the patient is demented and is not providing a detailed history. This report is prepared by using the records in the chart. PAST MEDICAL HISTORY: Hypertension, diabetes mellitus, Parkinson disease, dementia, Streptococcal agalactiae bacteremia, renal failure, non-ST elevation myocardial infarction, left greater toe wound, possible osteomyelitis. PAST SURGICAL HISTORY: None. REVIEW OF SYSTEMS: A 12-system review cannot be done given the patient's dementia and nonverbal status. SOCIAL HISTORY: Lives at home. No history of tobacco, alcohol, or illicit drug use. MEDICATIONS: List of medication reviewed and reconciled. On ceftriaxone, doxycycline, and Flagyl. PHYSICAL EXAMINATION: VITAL SIGNS: Blood pressure 112/52, pulse of 77, respirations of 18, temperature 98.0 degrees Fahrenheit, O2 saturation 100%. GENERAL: The patient is a very unfortunate lady, who is demented and nonverbally communicating, no apparent respiratory distress. HEENT: Atraumatic and normocephalic. Anicteric. Poor dental hygiene with associated dry mucosal membrane. NECK: JVP less than 5 cm. No carotid bruit. Carotid upstrokes 2+ bilaterally. CARDIOVASCULAR: Normal S1, S2. Regular rate and rhythm. No murmurs, gallops, or rubs. PMI is at fourth intercostal space in the midclavicular line. LUNGS: Clear to auscultation bilaterally. ABDOMEN: Soft, nontender, and nondistended. No hepatosplenomegaly. Positive bowel sounds. EXTREMITIES: No evidence of edema, clubbing, or cyanosis. DIAGNOSTIC DATA: Chest x-ray showed increased interstitial edema, suspect left perihilar consolidation suggestive of pneumonia, small bilateral pleural effusions. LABORATORY FINDINGS: WBC was 9.1, hemoglobin was 8.1, hematocrit of 24.6%, platelet count 310. Sodium was 136, potassium of 4.2, chloride 101, bicarbonate 27, BUN 8, creatinine 1.0, glucose of 104, calcium is 8.1. ASSESSMENT AND PLAN: The patient is a very unfortunate 84-year-old lady, who is being evaluated for transesophageal echocardiography. As she has Streptococcal agalactiae bacteremia, currently on IV antibiotic therapy, but there is a failure of resolution after infection and blood cultures with antibiotic therapy. Infectious Disease specialist as requested an evaluation of cardiac valves using transesophageal echocardiography as transthoracic echocardiography did not identify any vegetations, but the images were not optimal. Informed consent is in the chart after reviewing the risks, benefits, and alternative of the procedure with [id number] of the patient as the patient is demented. Further therapeutic recommendations will be determined after transesophageal echocardiography is completed. I would like to thank, Dr. Toledo, Dr. Purdy, and Dr. Butler, for involving me in the care of this pleasant patient. Luis New M.D. DR: ABDIEL JOB#: [id number] CC:
--- NOTE | 2019-09-09 15:03 | NUR ---
DISCHARGE PLANNING ERIBERTO NEGATIVE FOR INFECTIVE ENDOCARDITIS MRI OF FOOT RESULTS ARE PENDING AND WILL DETERMINE THE TIMING OF DISCHARGE
--- NOTE | 2019-09-09 15:51 | NUR ---
RD ASSESSMENT & RECOMMENDATIONS SEE CARE ACTIVITY FOR COMPLETE ASSESSMENT DAILY ESTIMATED NEEDS: Needs based on Wounds, DM 49kg 30-35 kcals/kg [id number] total kcals 1.25-2 g protein/kg 61-98 g total protein 25-30ml/kcal mL/kg 9165-3527 total fluid mLs NUTRITION DIAGNOSIS: Increased kcal and pro needs r/t wound healing as evidenced by pt w/ multiple areas of skin breakdown including unstageable L hip wounds x2, refer to WC eval for full assessment. CURRENT DIET:CCHO MED, pureed moist w/ NTL PO DIET RECOMMENDATIONS: CCHO MED / texture per AGRICULTURE RESEARCH DIRECTOR ADDITIONAL RECOMMENDATIONS: 1) Glucerna TID w/ meals added 2) Monitor BG, monitor for hypoglycemia w/ suboptimal intake 3) Wound care: if tolerated ANTONIA BID + Vit C 250mg BID + MVI w/ min q daily 4) Calibrated bed scale wts daily, EMR appear stable 5) Consider appetite stimulant w/ continued poor and variable PO 6) Replete lytes as needed (low K)
--- NOTE | 2019-09-09 16:12 | Diagnostic Imaging Report ---
Indication: Pain and swelling Technique: Left forefoot imaging utilizing multiplanar T1 fast spin-echo, proton and T2 fast spin-echo with fat saturation, and STIR. Comparison: Plain x-ray 09/06/2019 Findings: There is abnormal signal low T1 high T2 signal within the first metatarsal shaft, head and neck, first proximal phalange and distal phalange consistent with osteomyelitis. There is extensive soft tissue swelling within the hallux and first interspace. There is a prominent ulcer on medial to the head of the first metatarsal which is likely the portal of entry for the infection. IMPRESSION: Evidence of acute osteomyelitis involving the hallux as described above. Cellulitis.
--- NOTE | 2019-09-09 16:38 | NUR ---
ST NOTES: WEEKLY SWALLOW/SPEECH THERAPY SUMMARY: SEEN FOR DYSPHAGIA, SEE SWALLOW EVALUATION. GOALS NOT MET FOR INTAKE (25/50/75% INCONSISTENTLY MET) ON CCHO PUREED AND NECTAR THICK LIQUID DIET. GOALS MET FOR NEW STAFF EDUCATED/TRAINED IN POSTED ASPIRATION PRECAUTIONS. STILL HAS NOT HAD A MOD BARIUM SWALLOW STUDY (SCHEDULE CONFLICT AND W/END) TO DATE BUT CAN HAVE AN OP IF D/C. DO NOT HOLD UP D/C FOR THIS STUDY. PER CXR 09/07/19: IMPRESSION: 1. Interval mild improvement in the diffusely increased interstitial markings compared to the prior exam, suggesting improved pulmonary interstitial edema. 2. Linear atelectasis at the periphery of the left mid lung. 3. Possible small left pleural effusion. PER RNSYL, THE PATIENT HAS BEEN LETHARGIC SINCE YESTERDAY AND IS NOW NPO UNTIL SHE IS MORE ALERT. PLAN: F/UP WHEN MORE ALERT, NO PO FOR NOW UNTIL ALERTNESS IMPROVES.
--- NOTE | 2019-09-09 19:36 | NUR ---
HAND-OFF: Report given to ISHAAN Lerner. Patient's stable, plan of care endorsed.
--- NOTE | 2019-09-09 19:40 | NUR ---
NURSE NOTES: Nurse report given by ISHAAN Carrillo. Pt is AO x 1, confused, no s/s of distress or SOB, no pain using FLACC score. Bed low in and locked position, call light within reach, side rails x 3, bed alarm on, Pt is on P200 pressure relief mattress, has multiple pressure sores, bilateral feet, hip, sacrum, wound care followed as ordered, IV is running fluid, no s/s of infiltration or tenderness. On Contact precaution. Will continue to monitor.
[2019-09-09] MEDS: cefTRIAXone 2 GM in NS 110 ML IVPB SCH (21:50)
[2019-09-10] VITALS: BP 120/74
[2019-09-10] MEDS: metroNIDAZOLE 500mg tab ORAL SCH ×3 (01:00→17:50)
[2019-09-10 04:00] VITALS: BP 145/60
[2019-09-10] MEDS: NovoLOG Insulin Flexpen SUBQ SCH ×4 (06:30→21:37)
[2019-09-10 07:27] LABS: BASOPHILS % (AUTO) 0.5 % (0.0-2.0); EOSINOPHILS % (AUTO) 0.7 % (0.0-3.0); HEMATOCRIT 25.3 % (37.0-47.0); HEMOGLOBIN 8.4 G/DL (12.0-16.0); LYMPHOCYTES % (AUTO) 31.8 % (20.0-45.0); MEAN CORPUSCULAR VOLUME 82 FL (80-99); MONOCYTES % (AUTO) 8.6 % (1.0-10.0); NEUTROPHILS % (AUTO) 58.4 % (45.0-75.0); PLATELET COUNT 370 K/UL (150-450); RED BLOOD COUNT 3.07 M/UL (4.20-5.40); RED CELL DISTRIBUTION WIDTH 13.7 % (11.6-14.8); WHITE BLOOD COUNT 5.3 K/UL (4.8-10.8)
--- NOTE | 2019-09-10 07:29 | NUR ---
HAND-OFF: Report given to ISHAAN Duarte.
[2019-09-10 07:40] LABS: ANION GAP 10 mmol/L (5-15); BLOOD UREA NITROGEN 13 mg/dL (7-18); CALCIUM 7.9 MG/DL (8.5-10.1); CARBON DIOXIDE 28 MMOL/L (21-32); CHLORIDE 102 MMOL/L (98-107); POTASSIUM 3.6 MMOL/L (3.5-5.1); SODIUM 139 MMOL/L (136-145)
--- NOTE | 2019-09-10 07:52 | NUR ---
NURSE NOTES: Received report from ISHAAN Lerner. Pt in bed, asleep, respirations regular and unlabored, pt is said to be A/Ox0, pt has multiple wounds, bed in lowest position, call light within reach.
[2019-09-10 08:00] VITALS: BP 140/66
--- NOTE | 2019-09-10 08:10 | Cardiac Electrophysiology PN ---
Assessment/Plan Assessment/Plan 1. Elevated troponin due to renal failure with creatinine 1.7. Troponins between 0.5 and 0.7. No CP. ECG LBBB Echo Nl EF and no vegetations. On aspirin. Off statin in view of rhabdomyolysis. Off beta lisbeth for bradycardia 2. Hypertension. On Norvasc 5 3. LBBB and sinus dorian in 30s. Resolved off Lopressor 4. Nonsustained VT. 5. Heart failure. BNP of more than 24,000. Echocardiogram Nl EF. Could be HFpEF 6. Urinary tract infection, on IV antibiotic. 7. 4/4 Strep Bacteremia with WBC 25K. Down to 6 K. R/O endocarditis. ERIBERTO by Dr. Shaq nurday showed no vegetation 8. Renal failure. Creatinine of 1.7. Normalized to 1.1. 9. Uncontrolled diabetes 10. Left toe diabetic ulcer. On iv Abx. Podiatry follow DW RN Subjective Subjective Remained in SR with LBBB. No CP or SOB. ERIBERTO by Dr. Shaq todd showed no vegetation Objective Last 24 Hour Vital Signs Date Time Temp Pulse Resp B/P (MAP) Pulse Ox O2 Delivery O2 Flow Rate FiO2 09/10/19 04:02 84 09/10/19 04:00 98.1 89 20 145/60 (88) 96 09/10/19 00:00 99.5 88 20 120/74 (89) 95 09/10/19 00:00 93 09/09/19 21:00 Nasal Cannula 2.0 09/09/19 20:00 79 09/09/19 20:00 100.0 87 20 133/52 (79) 92 09/09/19 16:00 71 09/09/19 16:00 97.8 83 16 126/53 (77) 92 09/09/19 12:00 77 09/09/19 12:00 97.9 76 18 110/47 (68) 96 09/09/19 09:32 82 20 98 09/09/19 09:00 Nasal Cannula 2.0 09/09/19 08:51 69 108/64 09/09/19 08:45 98.2 80 17 158/75 99 Nasal Cannula 3 09/09/19 08:35 80 16 163/77 99 Nasal Cannula 3 09/09/19 08:30 78 17 158/73 99 Nasal Cannula 3 09/09/19 08:26 84 22 98 09/09/19 08:23 97.7 80 14 156/78 99 Nasal Cannula 3 Intake and Output 09/09/19 09/10/19 19:00 07:00 Intake Total 230 ml Output Total 1100 ml 400 ml Balance -870 ml -400 ml Intake Oral 0 ml IV Total 230 ml Output Urine Total 1100 ml 400 ml # Voids 1 # Bowel Movements 1 Laboratory Tests Test 09/10/19 06:33 White Blood Count 5.3 K/UL (4.8-10.8) Red Blood Count 3.07 M/UL (4.20-5.40) L Hemoglobin 8.4 G/DL (12.0-16.0) L Hematocrit 25.3 % (37.0-47.0) L Mean Corpuscular Volume 82 FL (80-99) Mean Corpuscular Hemoglobin 27.2 PG (27.0-31.0) Mean Corpuscular Hemoglobin Concent 33.1 G/DL (32.0-36.0) Red Cell Distribution Width 13.7 % (11.6-14.8) Platelet Count 370 K/UL (150-450) Mean Platelet Volume 5.8 FL (6.5-10.1) L Neutrophils (%) (Auto) 58.4 % (45.0-75.0) Lymphocytes (%) (Auto) 31.8 % (20.0-45.0) Monocytes (%) (Auto) 8.6 % (1.0-10.0) Eosinophils (%) (Auto) 0.7 % (0.0-3.0) Basophils (%) (Auto) 0.5 % (0.0-2.0) Erythrocyte Sedimentation Rate Pending Sodium Level 139 MMOL/L (136-145) Potassium Level 3.6 MMOL/L (3.5-5.1) Chloride Level 102 MMOL/L (98-107) Carbon Dioxide Level 28 MMOL/L (21-32) Anion Gap 10 mmol/L (5-15) Blood Urea Nitrogen 13 mg/dL (7-18) Creatinine 1.0 MG/DL (0.55-1.30) Estimat Glomerular Filtration Rate mL/min (>60) Glucose Level 101 MG/DL (74-106) Calcium Level 7.9 MG/DL (8.5-10.1) L C-Reactive Protein, Quantitative Pending Microbiology Date/Time Source Procedure Growth Status 09/08/19 15:45 Urine,Clean Catch Urine Culture - Preliminary Resulted 09/07/19 13:12 Foot Left Gram Stain - Final Complete 09/07/19 13:12 Wound Culture - Final Usual Skin Laurie Complete Objective HEAD AND NECK: No JVD LUNGS: Clear. CARDIOVASCULAR: Regular S1 and S2 with no gallop or murmur. ABDOMEN: Soft. EXTREMITIES: Left toe ulcer Luis Purdy MD Sep 10, 2019 08:10
[2019-09-10] MEDS: Levodopa/Carbidopa 10/100 tab ORAL SCH ×3 (09:50→17:50)
[2019-09-10] MEDS: Aspirin Baby 81mg ORAL SCH (09:50)
[2019-09-10] MEDS: Doxycycline Monohydrate 100mg ORAL SCH (09:50)
--- NOTE | 2019-09-10 10:06 | General Progress Note ---
Assessment/Plan Problem List: (1) Bacteremia due to group B Streptococcus ICD Codes: R78.81 - Bacteremia SNOMED: 914055469881 (2) Severe sepsis ICD Codes: A41.9 - Sepsis, unspecified organism; R65.20 - Severe sepsis without septic shock SNOMED: 91010760 (3) Toxic metabolic encephalopathy ICD Codes: G92 - Toxic encephalopathy SNOMED: 906120036 (4) Diabetes mellitus with hyperglycemia ICD Codes: E11.65 - Type 2 diabetes mellitus with hyperglycemia SNOMED: 09345063, 99027707 (5) OWEN (acute kidney injury) ICD Codes: N17.9 - Acute kidney failure, unspecified SNOMED: 7195259, 29580746 (6) NSTEMI (non-ST elevated myocardial infarction) ICD Codes: I21.4 - Non-ST elevation (NSTEMI) myocardial infarction SNOMED: 39351319, 246507692 (7) Urinary tract infection due to ESBL Klebsiella ICD Codes: N39.0 - Urinary tract infection, site not specified; B96.89 - Other specified bacterial agents as the cause of diseases classified elsewhere SNOMED: 708932642, 214651054688894 (8) Suspected acute on chronic CHF (9) Decubitus skin ulcer ICD Codes: L89.90 - Pressure ulcer of unspecified site, unspecified stage SNOMED: 014710408 (10) ATN (acute tubular necrosis) ICD Codes: N17.0 - Acute kidney failure with tubular necrosis SNOMED: 29808846 (11) Parkinson disease ICD Codes: G20 - Parkinson disease SNOMED: 25428923 (12) Bedbug bite ICD Codes: W57.XXXA - Bitten or stung by nonvenomous insect and other nonvenomous arthropods, initial encounter SNOMED: 713151111 (13) Hypernatremia ICD Codes: E87.0 - Hyperosmolality and hypernatremia SNOMED: 112266229 (14) Hypokalemia ICD Codes: E87.6 - Hypokalemia SNOMED: 21937909 Status: stable Assessment/Plan: 84-year-old lady from [facility] with history of hypertension, uncontrolled diabetes, and Parkinson disease, who was brought to the emergency room by family member for altered mental status and weakness. Found to have severe sepsis due to ESBL UTI, group b strep bacteremia, ?endocarditis, OWEN vs OWEN on CKD and NSTEMI. Heart failure. BNP of more than 24,000. Echocardiogram Nl EF. ?HFpEF. developed hypernatremia. Hypokalemia. Now left foot/1st toe osteomyelitis. Plan: - heparin gtt per acs protocol, DC per cards, no chest pain, stable troponin. Continue ASA, beta lisbeth (Lopressor 25), hold off on statin due to rhabdomyolysis. Decreased Lopressor to 12.5 mg bid due to low heart rate, eventually had to stop due to bradycardia on 08/29 - trend tn/ekg - cardiology consult appreciated - TTE, normal EF, no vegetations, in view of strep bacteremia in / bottles, needs a ERIBERTO to r/o endocarditis, per ID alternatively can treat empirically for 6 weeks total IV abx -surveillance cultures negative -monitor serum sodium, replace k as needed - ID consult appreciated - c/w empiric vanco/zosyn, switched to meropenem based on sensitivities . change to ceftriaxone for day # 15/28 for presumptive endocarditis treatment. doxycycline and flagyl added (09/07) for left foot infection. MRI left foot: first metatarsal shaft, head and neck, first proximal phalange and distal phalange consistent with osteomyelitis -Follow up arterial studies left foot. -wound culture, normal skin maximino - follow urine and blood cx's. 11/08 strep bacteremia with wbc 25k--> now 9, repeat blood cultures no growth to date - c/w PD regimen - A1c 9-->insulin sliding scale ac/hs, change to resistant scale, fsbg controlled - supportive care - delirium precautions -d/w ID -discuss goal of care with family, grand daughter [phone] -Add lasix 40 mg BID -General surgery consult appreciated. Time spent on patient care, 37 mins, >50% on counseling and coordination of care Time of this note may not reflect the time of the clinical encounter. Subjective Date patient seen: Sep 10, 2019 ROS Limited/Unobtainable: Yes Allergies: Coded Allergies: No Known Allergies (Unverified , 10/23/13) Subjective poor historian. following up for severe sepsis, group b strep bacteremia, ? endocarditis, ESBL UTI, OWEN, NSTEMI. Denies any chest pain or sob, alert and awake, LBBB, episodes of vtach. DM foot osteomyelitis, confirmed on MRI foot. ERIBERTO negative for vegetations. Left leg arterial studies pending Objective Last 24 Hour Vital Signs Date Time Temp Pulse Resp B/P (MAP) Pulse Ox O2 Delivery O2 Flow Rate FiO2 09/10/19 08:00 98.2 93 19 140/66 (90) 97 09/10/19 04:02 84 09/10/19 04:00 98.1 89 20 145/60 (88) 96 09/10/19 00:00 99.5 88 20 120/74 (89) 95 09/10/19 00:00 93 09/09/19 21:00 Nasal Cannula 2.0 09/09/19 20:00 79 09/09/19 20:00 100.0 87 20 133/52 (79) 92 09/09/19 16:00 71 09/09/19 16:00 97.8 83 16 126/53 (77) 92 09/09/19 12:00 77 09/09/19 12:00 97.9 76 18 110/47 (68) 96 Intake and Output 09/09/19 09/10/19 19:00 07:00 Intake Total 230 ml Output Total 1100 ml 400 ml Balance -870 ml -400 ml Intake Oral 0 ml IV Total 230 ml Output Urine Total 1100 ml 400 ml # Voids 1 # Bowel Movements 1 Laboratory Tests 09/10/19 06:33: White Blood Count 5.3, Red Blood Count 3.07L, Hemoglobin 8.4L, Hematocrit 25.3L , Mean Corpuscular Volume 82, Mean Corpuscular Hemoglobin 27.2, Mean Corpuscular Hemoglobin Concent 33.1, Red Cell Distribution Width 13.7, Platelet Count 370, Mean Platelet Volume 5.8L, Neutrophils (%) (Auto) 58.4, Lymphocytes ( %) (Auto) 31.8, Monocytes (%) (Auto) 8.6, Eosinophils (%) (Auto) 0.7, Basophils (%) (Auto) 0.5, Erythrocyte Sedimentation Rate [Pending], Sodium Level 139, Potassium Level 3.6, Chloride Level 102, Carbon Dioxide Level 28, Anion Gap 10, Blood Urea Nitrogen 13, Creatinine 1.0, Estimat Glomerular Filtration Rate , Glucose Level 101, Calcium Level 7.9L, C-Reactive Protein, Quantitative 20.6H Height (Feet): 5 Height (Inches): 3.00 Weight (Pounds): 109 Objective General Appearance: WD/WN, no apparent distress, awake, confused HEENT: normocephalic, atraumatic, PERRL, EOMI, supple, no JVD Neck: non-tender, normal alignment, supple Respiratory/Chest: chest wall non-tender, lungs clear, normal breath sounds, no respiratory distress, no accessory muscle use Cardiovascular/Chest: normal peripheral pulses, normal rate, regular rhythm, no gallop/murmur, no JVD Abdomen: non tender, soft, no organomegaly Extremities: no edema, no cyanosis Neurologic: disoriented Skin: +debuts, + left foot/1st toe ulcer/Eschar. Chago Lyons M.D. Sep 10, 2019 10:06
--- NOTE | 2019-09-10 11:25 | NUR ---
PT EVALUATION NOTE Patient seen for initial evaluation. Patient presents with generalized weakness which impairs patient's ability to perform mobility tasks safely. Patient requires max/dependent assist to come to sitting at EOB and requires min assist to maintain sitting at the EOB. Patient unable to stand/transfer due to weakness. Patient will benefit from skilled inpatient PT intervention to address strength, balance and safety for improved level of functional mobility. Recommend discharge to SNF once medically cleared by MD. Addendum: 09/10/19 at 1255 by KARIS SANCHEZ PT Amended: Links added. Addendum: 09/10/19 at 1405 by KARIS SANCHEZ PT Recommend discharge to SNF vs home with home PT and family assistance once medically cleared by .
[2019-09-10 12:00] VITALS: BP 138/69
--- NOTE | 2019-09-10 13:13 | Surgery Progress Note ---
Surgery Progress Note Subjective Symptoms: improved, tolerating diet, voiding well, passing flatus, BM, pain decreased Objective Last 24 Hour Vital Signs Date Time Temp Pulse Resp B/P (MAP) Pulse Ox O2 Delivery O2 Flow Rate FiO2 09/10/19 12:00 98.6 90 20 138/69 (92) 98 09/10/19 09:50 93 140/66 09/10/19 09:00 Nasal Cannula 2.0 09/10/19 08:00 98.2 93 19 140/66 (90) 97 09/10/19 07:30 78 09/10/19 04:02 84 09/10/19 04:00 98.1 89 20 145/60 (88) 96 09/10/19 00:00 99.5 88 20 120/74 (89) 95 09/10/19 00:00 93 09/09/19 21:00 Nasal Cannula 2.0 09/09/19 20:00 79 09/09/19 20:00 100.0 87 20 133/52 (79) 92 09/09/19 16:00 71 09/09/19 16:00 97.8 83 16 126/53 (77) 92 I&O Intake and Output 09/09/19 09/10/19 19:00 07:00 Intake Total 230 ml Output Total 1100 ml 400 ml Balance -870 ml -400 ml Intake Oral 0 ml IV Total 230 ml Output Urine Total 1100 ml 400 ml # Voids 1 # Bowel Movements 1 Dressing: dry Wound: clean Cardiovascular: RSR Respiratory: clear Abdomen: soft, non-tender, present bowel sounds Extremities: no tenderness, other Laboratory Tests Test 09/10/19 06:33 White Blood Count 5.3 K/UL (4.8-10.8) Red Blood Count 3.07 M/UL (4.20-5.40) L Hemoglobin 8.4 G/DL (12.0-16.0) L Hematocrit 25.3 % (37.0-47.0) L Mean Corpuscular Volume 82 FL (80-99) Mean Corpuscular Hemoglobin 27.2 PG (27.0-31.0) Mean Corpuscular Hemoglobin Concent 33.1 G/DL (32.0-36.0) Red Cell Distribution Width 13.7 % (11.6-14.8) Platelet Count 370 K/UL (150-450) Mean Platelet Volume 5.8 FL (6.5-10.1) L Neutrophils (%) (Auto) 58.4 % (45.0-75.0) Lymphocytes (%) (Auto) 31.8 % (20.0-45.0) Monocytes (%) (Auto) 8.6 % (1.0-10.0) Eosinophils (%) (Auto) 0.7 % (0.0-3.0) Basophils (%) (Auto) 0.5 % (0.0-2.0) Erythrocyte Sedimentation Rate 118 MM/HR (0-30) H Sodium Level 139 MMOL/L (136-145) Potassium Level 3.6 MMOL/L (3.5-5.1) Chloride Level 102 MMOL/L (98-107) Carbon Dioxide Level 28 MMOL/L (21-32) Anion Gap 10 mmol/L (5-15) Blood Urea Nitrogen 13 mg/dL (7-18) Creatinine 1.0 MG/DL (0.55-1.30) Estimat Glomerular Filtration Rate mL/min (>60) Glucose Level 101 MG/DL (74-106) Calcium Level 7.9 MG/DL (8.5-10.1) L C-Reactive Protein, Quantitative 20.6 mg/dL (0.00-0.90) H Plan Problems: (1) Decubitus skin ulcer Assessment & Plan: Pt presented on admission with multiple pressure injuries. DTPI Sacrum (L)10cm x (W)9cm with small slit at sacrococcygeal area(L)0.5cm- small amt sanguineous exudate noted.Base of wound is maroon and indurated. Two Unstageable pressure injuries in close proximity noted to L hip. Base of each wound is necrotic and soft with marginal erythema.(L)2cm x (W)3.7cm NO erythema or odor noted. Historical Scar noted at L hip in close proximity to wound. L heel boggy with non-blanching erythema.(L)4cm x (W)4.5cm R heel boggy with non-blanching erythema.(L)5cm x (W)6cm. Pt noted to have several small black droppings in bed. Upon further inspection. Single small brownish bug observed crawling in bed. At posterior aspect of neck pt noted to have macular red rash.Red rash also noted to L axilla .Complete bed Bath provided.And all bed linen removed and mattress sanitized. EVS was notified by Primary nurse. left great toe with eschar now soft and draining pus. cultured Tx.plan: Apply Moisture Barrier Paste to Sacrum. Cover with Optifoam drsg. Change every 3 days and prn. Cleanse L hip with Saline. Apply Therahoney. Apply Cavilon Skin Barrier periwound.Cover with Optifoam drsg. Change every 3 days and prn. Apply Cavilon Skin Barrier to both heels. Cover each heel with Optifoam drsg. Change every 7 days and prn. APM/YURIY mattress overlay. Reposition at least every 2hours or as tolerated. Off-load heels with pillow. podiatry eval wash left foot daily, apply Betadine to eschar and gauze (2) Sepsis Assessment & Plan: Leukocytosis, abnormal labs, tachycardic, per report fevers UA identified urosepsis bacteremic leukocytosis resolved improving overall anemia fevers resolved On antibiotics as per infectious disease Trend labs Okay for diet A.m. labs Wounds unlikely etiology of sepsis as they are chronic and do not look actively infected discussed with medical teams discussed with podiatry plan for abx d/c planning cont abx We will follow with recommendations thank you for let me participate in patient' s care Darrius Miller Sep 10, 2019 13:13
--- NOTE | 2019-09-10 13:57 | NUR ---
CASE MANAGEMENT:REVIEW 09/10/19 SI: STREP BACTEREMIA. ERIBERTO(-) ACUTE OSTEOMYELITIS OF BIG TOE 98.6 90 20 138/69 98% ON 2L/NC H/H-8.4/25.3 ESR+118 CRP+20.6 IS: IV ROCEPHIN Q24 DOXYCYCLINE PO Q12 FLAGYL PO Q8HRS IVF@30/HR NORVASC PO QD ASA PO QD : TELEMETRY STATUS DCP: FROM HOME
--- NOTE | 2019-09-10 14:04 | NUR ---
DISCHARGE PLANNING PATIENT IS FROM HOME WITH RESTRICTED [facility] SNF PLACEMENT IS NOT AN OPTION AT THIS TIME NEED TO KNOW HOW MANY WEEKS OF ANTIBIOTICS, TOTAL AND REMAINING
[2019-09-10 16:00] VITALS: BP 137/77
--- NOTE | 2019-09-10 17:02 | Infectious Diseases Prog Note ---
Assessment/Plan Assessment/Plan ASSESSMENT AND PLAN: 1. streptococcus agalactiae - group b bacteremia, ? endocarditis, esbl e.coli uti, sirs, leukocytosis, ? pna on chest x-ray - ? hcap/aspiration vs pulmonary edema, left foot great toe/1st toe wound infection - MRI c/w osteomyelitis, elevated sed rate - vancomycin, cefepime, flagyl - day # 18 of abx, will need 6 weeks treatment for osteomyelitis - ERIBERTO negative for vegetation - wound culture right foot with normal maximino but likely polymicrobial infection - arterial studies results pending - ordered - monitor labs, recent chest x-ray negative 2. Acute kidney injury with elevated creatinine. 3. History of diabetes. 4. weakness 5. Blood pressure treatment per primary care team and diabetes treatment per primary care team and consultants. 6. Parkinson's. 7. Dementia. 8. The patient does have also elevated troponin. Cardiology follow-up. 9. MAR was noted. 10. Case was discussed with RN. 11. No known allergies. 12. Social history is negative. 13. Family history is noncontributory. 14. Continue treatment per primary consultants. 15. Orders were noted and entered. Subjective Constitutional: Denies: fever HEENT: Denies: congestion Respiratory: Denies: shortness of breath Cardiovascular: Denies: chest pain Gastrointestinal/Abdominal: Denies: nausea, vomiting, diarrhea Genitourinary: Reports: other - + arnold Psychiatric: Reports: other - na Skin: Reports: ulcer - wounds covered Hematologic: Reports: other - na Musculoskeletal: Reports: other - na Allergies: Coded Allergies: No Known Allergies (Unverified , 10/23/13) Objective Vital Signs Last 24 Hour Vital Signs Date Time Temp Pulse Resp B/P (MAP) Pulse Ox O2 Delivery O2 Flow Rate FiO2 09/10/19 16:00 98.4 88 19 137/77 (97) 98 09/10/19 12:01 67 09/10/19 12:00 98.6 90 20 138/69 (92) 98 09/10/19 09:50 93 140/66 09/10/19 09:00 Nasal Cannula 2.0 09/10/19 08:00 98.2 93 19 140/66 (90) 97 09/10/19 07:30 78 09/10/19 04:02 84 09/10/19 04:00 98.1 89 20 145/60 (88) 96 09/10/19 00:00 99.5 88 20 120/74 (89) 95 09/10/19 00:00 93 09/09/19 21:00 Nasal Cannula 2.0 09/09/19 20:00 79 09/09/19 20:00 100.0 87 20 133/52 (79) 92 Height (Feet): 5 Height (Inches): 3.00 Weight (Pounds): 109 General Appearance: no acute distress HEENT: normocephalic, atraumatic, anicteric, mucous membranes moist Respiratory/Chest: lungs clear, normal breath sounds, crackles/rales, rhonchi - bilaterally Cardiovascular: normal rate, regular rhythm, no gallop/murmur, no JVD Abdomen: normal bowel sounds, soft, non tender, no organomegaly, non distended Genitourinary: other - + arnold - urine slt cloudy Extremities: other - right foot great toe wound without change, necrosis noted Skin: no rash Neurologic/Psychiatric: other - lethargic, weak Lymphatic: no neck adenopathy Musculoskeletal: no effusion Objective Chest x-ray - FINDINGS: Lungs: Mild vascular congestion. Pleural space: Unremarkable. No pneumothorax. Heart: Borderline cardiomegaly, potentially exaggerated by portable technique. Mediastinum: Calcified aorta. Bones/joints: Osteopenia. Degenerative changes. IMPRESSION: Mild vascular congestion CT abdomen: Impression: Anasarca, as described, with generalized edema of subcutaneous abdominal fat, moderate-sized bilateral pleural effusions, pulmonary interstitial and airspace edema Compressive atelectasis of the lower lobes due to the pleural fluid Evidence of rectal fecal impaction and possible stercoral proctitis Pessary, likely malpositioned, as described. There is evidence of bladder floor relaxation despite the pessary Dilated extrahepatic bile ducts. Most likely related to patient's age as no downstream obstructive lesion is demonstrated. However, correlation with liver function tests is recommended, with consideration for MRCP if clinically indicated Questionable slight retrococcygeal decubitus changes. Correlate with findings Other findings as noted, including evidence of prior renal cortical scarring, Arnold catheter, uterine arcuate artery calcifications Chest x-ray - 09/05/19 - Indication: Cough Technique: One view of the chest Comparison: 08/24/2019 Findings: There is increased interstitial edema. There is evidence of left perihilar airspace disease There is suggestion of trace bilateral pleural effusions. The heart size is upper limits normal. Impression: Increased interstitial edema, since prior exam 08/24/2019 Suspect left perihilar consolidation Small bilateral pleural effusions Chest x-ray - 09/07/19 - IMPRESSION: 1. Interval mild improvement in the diffusely increased interstitial markings compared to the prior exam, suggesting improved pulmonary interstitial edema. 2. Linear atelectasis at the periphery of the left mid lung. 3. Possible small left pleural effusion. Microbiology Date/Time Source Procedure Growth Status 09/03/19 21:00 Blood Blood Culture - Final NO GROWTH AFTER 5 DAYS Complete 09/08/19 15:45 Urine,Clean Catch Urine Culture - Preliminary Resulted 09/07/19 13:12 Foot Left Gram Stain - Final Complete 09/07/19 13:12 Wound Culture - Final Usual Skin Maximino Complete Microbiology Date/Time Source Procedure Growth Status 09/08/19 15:45 Urine,Clean Catch Urine Culture - Preliminary Resulted Laboratory Tests Test 09/10/19 06:33 White Blood Count 5.3 K/UL (4.8-10.8) Red Blood Count 3.07 M/UL (4.20-5.40) L Hemoglobin 8.4 G/DL (12.0-16.0) L Hematocrit 25.3 % (37.0-47.0) L Mean Corpuscular Volume 82 FL (80-99) Mean Corpuscular Hemoglobin 27.2 PG (27.0-31.0) Mean Corpuscular Hemoglobin Concent 33.1 G/DL (32.0-36.0) Red Cell Distribution Width 13.7 % (11.6-14.8) Platelet Count 370 K/UL (150-450) Mean Platelet Volume 5.8 FL (6.5-10.1) L Neutrophils (%) (Auto) 58.4 % (45.0-75.0) Lymphocytes (%) (Auto) 31.8 % (20.0-45.0) Monocytes (%) (Auto) 8.6 % (1.0-10.0) Eosinophils (%) (Auto) 0.7 % (0.0-3.0) Basophils (%) (Auto) 0.5 % (0.0-2.0) Erythrocyte Sedimentation Rate 118 MM/HR (0-30) H Sodium Level 139 MMOL/L (136-145) Potassium Level 3.6 MMOL/L (3.5-5.1) Chloride Level 102 MMOL/L (98-107) Carbon Dioxide Level 28 MMOL/L (21-32) Anion Gap 10 mmol/L (5-15) Blood Urea Nitrogen 13 mg/dL (7-18) Creatinine 1.0 MG/DL (0.55-1.30) Estimat Glomerular Filtration Rate mL/min (>60) Glucose Level 101 MG/DL (74-106) Calcium Level 7.9 MG/DL (8.5-10.1) L C-Reactive Protein, Quantitative 20.6 mg/dL (0.00-0.90) H Current Medications Medications (Trade) Dose Ordered Sig/Krystin Route PRN Reason Start Time Stop Time Status Last Admin Dose Admin Acetaminophen (Tylenol) 650 mg Q4H PRN ORAL Mild Pain/Temp > 100.5 09/03/19 00:45 09/24/19 12:44 09/04/19 12:26 Amlodipine Besylate (Norvasc) 5 mg DAILY ORAL 09/03/19 09:00 09/28/19 08:59 09/10/19 09:50 Aspirin (ASA) 81 mg DAILY ORAL 09/03/19 09:00 09/24/19 08:59 09/10/19 09:50 Carbidopa/Levodopa (Sinemet 10/100) 1 tab THREE TIMES A DAY ORAL 09/03/19 09:00 09/24/19 08:59 09/10/19 13:46 Ceftriaxone Sodium 2 gm/ Sodium Chloride 110 ml @ 220 mls/hr Q24HRS IVPB 09/06/19 21:00 09/20/19 20:59 09/09/19 21:50 Collagenase (Santyl) 1 applic DAILY TOPIC 09/06/19 17:00 10/06/19 16:59 09/10/19 11:45 Dextrose (Dextrose 50%) 25 ml Q30M PRN IV Hypoglycemia 09/03/19 00:15 09/23/19 19:14 Dextrose (Dextrose 50%) 50 ml Q30M PRN IV Hypoglycemia 09/03/19 00:15 09/23/19 19:14 Doxycycline Monohydrate (Doxycycline Monohydrate) 100 mg EVERY 12 HOURS ORAL 09/07/19 09:00 09/14/19 08:59 09/10/19 09:50 Gadobutrol (Gadavist) 7.5 mmol NOW PRN IV Radiology Procedure 09/08/19 13:45 09/12/19 13:31 Insulin Aspart (NovoLOG) BEFORE MEALS AND HS SUBQ 09/03/19 06:30 09/29/19 20:59 09/07/19 17:17 Metronidazole (Flagyl) 500 mg Q8H ORAL 09/07/19 09:00 09/14/19 08:59 09/10/19 09:49 Sodium Chloride 1,000 ml @ 30 mls/hr Q24H IV 09/08/19 16:45 10/08/19 16:44 09/09/19 17:07 Gerardo Toledo MD Sep 10, 2019 17:02
--- NOTE | 2019-09-10 19:34 | NUR ---
HAND-OFF: Report given to ISHAAN Marsh.
--- NOTE | 2019-09-10 19:35 | NUR ---
NURSE NOTES: Received report from ISHAAN Duarte. Patient is in bed, asleep. Responsive to verbal and tactile stimuli. Breathing regular and unlabored with no s/s of SOB noted, patient remains on a 2L NC. Patient has 2 IV access, RFA 22G, currently running fluids at prescribed rate, ANH 20G, intact, patent, and saline locked. Patient is on P200 mattress, turning the patient every 2 hours. Wound care done this morning, will provide care as needed. Bed is in lowest position, breaks engaged, call light is within reach at all times. All other needs attended to, patient remains stable, will continue to monitor.
[2019-09-10 20:00] VITALS: BP 104/54
[2019-09-10] MEDS: Vancomycin 500mg/D5W 110ml IVPB SCH ×2 (20:49)
--- NOTE | 2019-09-10 23:00 | NUR ---
NURSE NOTES: Patient is arousable to tactile and verbal stimuli. Repositioned the patient to provide comfort. All other needs attended to, patient remains stable.
[2019-09-11] VITALS: BP 106/56
--- NOTE | 2019-09-11 00:45 | NUR ---
NURSE NOTES: Administered the scheduled medication per MD orders, patient is able to swallow the medication along with some thickened juice. Only small amounts were tolerated. Patient remains stable, comfortably resting in bed. Will continue to monitor.
[2019-09-11] MEDS: metroNIDAZOLE 500mg tab ORAL SCH ×3 (01:11→17:10)
[2019-09-11 04:00] VITALS: BP 108/56
[2019-09-11] MEDS: NovoLOG Insulin Flexpen SUBQ SCH ×4 (06:30→21:00)
[2019-09-11 06:53] LABS: BASOPHILS % (AUTO) 0.6 % (0.0-2.0); EOSINOPHILS % (AUTO) 1.4 % (0.0-3.0); HEMATOCRIT 24.4 % (37.0-47.0); HEMOGLOBIN 8.1 G/DL (12.0-16.0); LYMPHOCYTES % (AUTO) 18.6 % (20.0-45.0); MEAN CORPUSCULAR VOLUME 83 FL (80-99); MONOCYTES % (AUTO) 7.9 % (1.0-10.0); NEUTROPHILS % (AUTO) 71.5 % (45.0-75.0); PLATELET COUNT 361 K/UL (150-450); RED BLOOD COUNT 2.96 M/UL (4.20-5.40); RED CELL DISTRIBUTION WIDTH 13.2 % (11.6-14.8); WHITE BLOOD COUNT 6.3 K/UL (4.8-10.8)
--- NOTE | 2019-09-11 07:17 | NUR ---
HAND-OFF: Report given to Felicia, plan of care endorsed, patient remains stable.
--- NOTE | 2019-09-11 07:37 | NUR ---
NURSE NOTES: Received report from ISHAAN Marsh. Pt in bed, asleep, respirations unlabored and regular, pt is A/Ox1 to name, able to follow commands, has multiple wound, all dressings dry and intact, IV fluids running according to order pt on 2L NC, Buckner in place and draining, bed in lowest position, call light within reach.
[2019-09-11 07:48] LABS: ALANINE AMINOTRANSFERASE 11 U/L (12-78); ALBUMIN 1.9 G/DL (3.4-5.0); ALBUMIN/GLOBULIN RATIO 0.4 (1.0-2.7); ALKALINE PHOSPHATASE 81 U/L (46-116); ANION GAP 6 mmol/L (5-15); ASPARTATE AMINO TRANSFERASE 40 U/L (15-37); BILIRUBIN,TOTAL 0.4 MG/DL (0.2-1.0); BLOOD UREA NITROGEN 13 mg/dL (7-18); CALCIUM 8.5 MG/DL (8.5-10.1); CARBON DIOXIDE 30 MMOL/L (21-32); CHLORIDE 107 MMOL/L (98-107); CREATININE 0.8 MG/DL (0.55-1.30); POTASSIUM 3.5 MMOL/L (3.5-5.1); SODIUM 143 MMOL/L (136-145)
[2019-09-11 08:00] VITALS: BP 126/50
[2019-09-11] MEDS: Levodopa/Carbidopa 10/100 tab ORAL SCH ×3 (08:48→17:10)
[2019-09-11] MEDS: Vancomycin 500mg/D5W 110ml IVPB SCH ×2 (08:48)
[2019-09-11] MEDS: Aspirin Baby 81mg ORAL SCH (08:48)
--- NOTE | 2019-09-11 09:31 | General Progress Note ---
Assessment/Plan Problem List: (1) Bacteremia due to group B Streptococcus ICD Codes: R78.81 - Bacteremia SNOMED: 882751441184 (2) Severe sepsis ICD Codes: A41.9 - Sepsis, unspecified organism; R65.20 - Severe sepsis without septic shock SNOMED: 55333731 (3) Toxic metabolic encephalopathy ICD Codes: G92 - Toxic encephalopathy SNOMED: 579996067 (4) Diabetes mellitus with hyperglycemia ICD Codes: E11.65 - Type 2 diabetes mellitus with hyperglycemia SNOMED: 50467816, 61504359 (5) OWEN (acute kidney injury) ICD Codes: N17.9 - Acute kidney failure, unspecified SNOMED: 1675320, 62619548 (6) NSTEMI (non-ST elevated myocardial infarction) ICD Codes: I21.4 - Non-ST elevation (NSTEMI) myocardial infarction SNOMED: 15521607, 485150991 (7) Urinary tract infection due to ESBL Klebsiella ICD Codes: N39.0 - Urinary tract infection, site not specified; B96.89 - Other specified bacterial agents as the cause of diseases classified elsewhere SNOMED: 925188477, 732977036117016 (8) Suspected acute on chronic CHF (9) Decubitus skin ulcer ICD Codes: L89.90 - Pressure ulcer of unspecified site, unspecified stage SNOMED: 136871179 (10) ATN (acute tubular necrosis) ICD Codes: N17.0 - Acute kidney failure with tubular necrosis SNOMED: 76509199 (11) Parkinson disease ICD Codes: G20 - Parkinson disease SNOMED: 81736029 (12) Bedbug bite ICD Codes: W57.XXXA - Bitten or stung by nonvenomous insect and other nonvenomous arthropods, initial encounter SNOMED: 723652943 (13) Hypernatremia ICD Codes: E87.0 - Hyperosmolality and hypernatremia SNOMED: 266061177 (14) Hypokalemia ICD Codes: E87.6 - Hypokalemia SNOMED: 15020364 Status: stable Assessment/Plan: 84-year-old lady from [facility] with history of hypertension, uncontrolled diabetes, and Parkinson disease, who was brought to the emergency room by family member for altered mental status and weakness. Found to have severe sepsis due to ESBL UTI, group b strep bacteremia, ?endocarditis, OWEN vs WOEN on CKD and NSTEMI. Heart failure. BNP of more than 24,000. Echocardiogram Nl EF. ?HFpEF. developed hypernatremia. Hypokalemia. Now left foot/1st toe osteomyelitis. Plan: - heparin gtt per acs protocol, DC per cards, no chest pain, stable troponin. Continue ASA, beta lisbeth (Lopressor 25), hold off on statin due to rhabdomyolysis. Decreased Lopressor to 12.5 mg bid due to low heart rate, eventually had to stop due to bradycardia on 08/29 - trend tn/ekg - cardiology consult appreciated - TTE, normal EF, no vegetations, in view of strep bacteremia in 4/ bottles, needs a ERIBERTO to r/o endocarditis, per ID alternatively can treat empirically for 6 weeks total IV abx -surveillance cultures negative -monitor serum sodium, replace k as needed - ID consult appreciated - c/w empiric vanco/zosyn, switched to meropenem based on sensitivities . change to ceftriaxone for day # 15/28 for presumptive endocarditis treatment. doxycycline and flagyl added (09/07) for left foot infection. MRI left foot: first metatarsal shaft, head and neck, first proximal phalange and distal phalange consistent with osteomyelitis -Follow up arterial studies left foot. -wound culture, normal skin maximino - follow urine and blood cx's. 11/08 strep bacteremia with wbc 25k--> now 9, repeat blood cultures no growth to date - c/w PD regimen - A1c 9-->insulin sliding scale ac/hs, change to resistant scale, fsbg controlled - supportive care - delirium precautions -d/w ID -discuss goal of care with family, grand daughter [phone] -Add lasix 40 mg BID -General surgery consult appreciated. Time spent on patient care, 37 mins, >50% on counseling and coordination of care Time of this note may not reflect the time of the clinical encounter. Subjective Date patient seen: Sep 11, 2019 Allergies: Coded Allergies: No Known Allergies (Unverified , 10/23/13) Subjective poor historian. following up for severe sepsis, group b strep bacteremia, ? endocarditis, ESBL UTI, OWEN, NSTEMI. Denies any chest pain or sob, alert and awake, LBBB, episodes of vtach. DM foot osteomyelitis, confirmed on MRI foot. ERIBERTO negative for vegetations. Left leg arterial studies pending Objective Last 24 Hour Vital Signs Date Time Temp Pulse Resp B/P (MAP) Pulse Ox O2 Delivery O2 Flow Rate FiO2 09/11/19 08:48 65 126/50 09/11/19 08:29 Nasal Cannula 2.0 09/11/19 08:00 97.1 65 19 126/50 (75) 97 09/11/19 04:00 97.3 90 16 108/56 (73) 98 09/11/19 00:00 97.3 90 17 106/56 (73) 98 09/10/19 21:00 Nasal Cannula 2.0 09/10/19 20:00 97.5 71 18 104/54 (71) 98 09/10/19 16:00 98.4 88 19 137/77 (97) 98 09/10/19 12:01 67 09/10/19 12:00 98.6 90 20 138/69 (92) 98 09/10/19 09:50 93 140/66 Intake and Output 09/10/19 09/11/19 19:00 07:00 Intake Total 640 ml Output Total 600 ml 300 ml Balance 40 ml -300 ml Intake Oral 640 ml Output Urine Total 600 ml 300 ml Laboratory Tests 09/11/19 06:20: White Blood Count 6.3, Red Blood Count 2.96L, Hemoglobin 8.1L, Hematocrit 24.4L , Mean Corpuscular Volume 83, Mean Corpuscular Hemoglobin 27.5, Mean Corpuscular Hemoglobin Concent 33.3, Red Cell Distribution Width 13.2, Platelet Count 361, Mean Platelet Volume 5.3L, Neutrophils (%) (Auto) 71.5, Lymphocytes ( %) (Auto) 18.6L, Monocytes (%) (Auto) 7.9, Eosinophils (%) (Auto) 1.4, Basophils (%) (Auto) 0.6, Sodium Level 143, Potassium Level 3.5, Chloride Level 107, Carbon Dioxide Level 30, Anion Gap 6, Blood Urea Nitrogen 13, Creatinine 0.8, Estimat Glomerular Filtration Rate , Glucose Level 114H, Calcium Level 8.5 , Total Bilirubin 0.4, Aspartate Amino Transf (AST/SGOT) 40H, Alanine Aminotransferase (ALT/SGPT) 11L, Alkaline Phosphatase 81, Total Protein 7.2, Albumin 1.9L, Globulin 5.3, Albumin/Globulin Ratio 0.4L Height (Feet): 5 Height (Inches): 3.00 Weight (Pounds): 109 Objective General Appearance: WD/WN, no apparent distress, awake, confused HEENT: normocephalic, atraumatic, PERRL, EOMI, supple, no JVD Neck: non-tender, normal alignment, supple Respiratory/Chest: chest wall non-tender, lungs clear, normal breath sounds, no respiratory distress, no accessory muscle use Cardiovascular/Chest: normal peripheral pulses, normal rate, regular rhythm, no gallop/murmur, no JVD Abdomen: non tender, soft, no organomegaly Extremities: no edema, no cyanosis Neurologic: disoriented Skin: +debuts, + left foot/1st toe ulcer/Eschar. Chago Lyons M.D. Sep 11, 2019 09:31
--- NOTE | 2019-09-11 10:11 | NUR ---
NURSE NOTES: Dr. Angela woodsoned for pt to be weight bearing on left foot to work with physical therapy
--- NOTE | 2019-09-11 11:13 | Diagnostic Imaging Report ---
INDICATION: Leg pain and swelling TECHNIQUE: Grayscale and duplex Doppler imaging of the arteries in both lower extremities performed in real time from the common femoral artery to trifurcation arteries. Arterial waveform analysis and velocities measured. No ABIs were obtained. COMPARISON: None FINDINGS: Right lower extremity: Aortoiliac disease: There is indirect evidence of aortoiliac disease given biphasic to monophasic waveform within the right common femoral artery showing a slightly slow upstroke. The aorta and iliac arteries are not directly visualized on this study. Femoral-popliteal disease: The vessels are heavily calcified from the common femoral artery to the superficial femoral artery and popliteal artery. Spectral broadening with the monophasic waveforms demonstrated within the common femoral artery and superficial femoral artery. There is a suspected stenosis within the mid to distal SFA with elevated velocities. The right popliteal artery is occluded. Tibial disease: Monophasic tardus parvus type waveforms demonstrated within reconstituted proximal posterior tibial artery and anterior tibial arteries. The posterior tibial artery occludes above the ankle. The dorsalis pedis artery is occluded. Peroneal artery appears occluded distal calf.. Left lower extremity: Aortoiliac disease: There may be aortoiliac disease given the biphasic to monophasic waveforms within the common femoral artery. Femoral-popliteal disease: Multisegment calcific plaque noted throughout the left common femoral artery, superficial femoral artery and popliteal artery without demonstration of focal high-grade stenosis. Tibial disease: The left anterior tibial artery is patent showing monophasic waveform with dampened somewhat low velocity 23 cm/s. The dorsalis pedis artery is occluded. The posterior tibial artery occludes proximally. The peroneal artery is occluded.. IMPRESSION: Peripheral lower extremity arterial examination showing moderate to severe atherosclerosis with moderate multisegment femoral/popliteal disease with severe infrapopliteal disease. Summary as follows: Right lower extremity: Right mid-SFA moderate stenosis suspected (~50%). Moderate multisegment calcific plaque. Occluded right popliteal artery. Reconstituted SIX PACK PACKER and RAMO. SIX PACK PACKER occludes above the ankle. Peroneal artery is occluded distally. ATV runoff to the ankle. Dorsalis pedis occluded. Left lower extremity: Mild to moderate femoropopliteal disease without high-grade stenosis. Severe infrapopliteal disease. Single-vessel runoff via a CTA. Occluded dorsalis pedis artery. Peroneal artery is occluded. Posterior tibial artery patent proximally and occludes in the upper calf.
--- NOTE | 2019-09-11 11:28 | Cardiac Electrophysiology PN ---
Assessment/Plan Assessment/Plan 1. Elevated troponin due to renal failure with creatinine 1.7. Troponins low level between 0.5 and 0.7. No CP. ECG LBBB Echo Nl EF and no vegetations. On aspirin. Off statin in view of rhabdomyolysis. Off beta lisbeth for bradycardia 2. Hypertension. On Norvasc 5 3. LBBB and sinus dorian in 30s. Resolved off Lopressor 4. Nonsustained VT. 5. Heart failure. BNP of more than 24,000. Echocardiogram Nl EF. Could be HFpEF 6. Urinary tract infection, on IV antibiotic. 7. 4/4 Strep Bacteremia with WBC 25K. Down to 6 K. No endocarditis. ERIBERTO by Dr. New 09/10/19 showed no vegetation 8. Renal failure. Creatinine of 1.7. Normalized to 1.1. 9. Uncontrolled diabetes 10. Left toe diabetic ulcer. On iv Abx. Podiatry follow DW RN DC tele Subjective Subjective Remained in SR with LBBB. No events. ERIBERTO by Dr. New 09/10/19 showed no vegetation Objective Last 24 Hour Vital Signs Date Time Temp Pulse Resp B/P (MAP) Pulse Ox O2 Delivery O2 Flow Rate FiO2 09/11/19 08:48 65 126/50 09/11/19 08:29 Nasal Cannula 2.0 09/11/19 08:00 97.1 65 19 126/50 (75) 97 09/11/19 04:00 97.3 90 16 108/56 (73) 98 09/11/19 00:00 97.3 90 17 106/56 (73) 98 09/10/19 21:00 Nasal Cannula 2.0 09/10/19 20:00 97.5 71 18 104/54 (71) 98 09/10/19 16:00 98.4 88 19 137/77 (97) 98 09/10/19 12:01 67 09/10/19 12:00 98.6 90 20 138/69 (92) 98 Intake and Output 09/10/19 09/11/19 19:00 07:00 Intake Total 640 ml Output Total 600 ml 300 ml Balance 40 ml -300 ml Intake Oral 640 ml Output Urine Total 600 ml 300 ml Laboratory Tests Test 09/11/19 06:20 White Blood Count 6.3 K/UL (4.8-10.8) Red Blood Count 2.96 M/UL (4.20-5.40) L Hemoglobin 8.1 G/DL (12.0-16.0) L Hematocrit 24.4 % (37.0-47.0) L Mean Corpuscular Volume 83 FL (80-99) Mean Corpuscular Hemoglobin 27.5 PG (27.0-31.0) Mean Corpuscular Hemoglobin Concent 33.3 G/DL (32.0-36.0) Red Cell Distribution Width 13.2 % (11.6-14.8) Platelet Count 361 K/UL (150-450) Mean Platelet Volume 5.3 FL (6.5-10.1) L Neutrophils (%) (Auto) 71.5 % (45.0-75.0) Lymphocytes (%) (Auto) 18.6 % (20.0-45.0) L Monocytes (%) (Auto) 7.9 % (1.0-10.0) Eosinophils (%) (Auto) 1.4 % (0.0-3.0) Basophils (%) (Auto) 0.6 % (0.0-2.0) Sodium Level 143 MMOL/L (136-145) Potassium Level 3.5 MMOL/L (3.5-5.1) Chloride Level 107 MMOL/L (98-107) Carbon Dioxide Level 30 MMOL/L (21-32) Anion Gap 6 mmol/L (5-15) Blood Urea Nitrogen 13 mg/dL (7-18) Creatinine 0.8 MG/DL (0.55-1.30) Estimat Glomerular Filtration Rate mL/min (>60) Glucose Level 114 MG/DL (74-106) H Calcium Level 8.5 MG/DL (8.5-10.1) Total Bilirubin 0.4 MG/DL (0.2-1.0) Aspartate Amino Transf (AST/SGOT) 40 U/L (15-37) H Alanine Aminotransferase (ALT/SGPT) 11 U/L (12-78) L Alkaline Phosphatase 81 U/L (46-116) Total Protein 7.2 G/DL (6.4-8.2) Albumin 1.9 G/DL (3.4-5.0) L Globulin 5.3 g/dL Albumin/Globulin Ratio 0.4 (1.0-2.7) L Microbiology Date/Time Source Procedure Growth Status 2/2/20 15:45 Urine,Clean Catch Urine Culture - Preliminary Gram Positive Cocci YEAST Resulted Objective HEAD AND NECK: No JVD LUNGS: Clear. CARDIOVASCULAR: Regular S1 and S2 with no gallop or murmur. ABDOMEN: Soft. EXTREMITIES: Left toe ulcer Luis Purdy MD Sep 11, 2019 11:28
[2019-09-11 12:00] VITALS: BP 140/71
--- NOTE | 2019-09-11 12:02 | General Progress Note ---
Assessment/Plan Problem List: (1) Bacteremia due to group B Streptococcus ICD Codes: R78.81 - Bacteremia SNOMED: 537823611063 (2) Severe sepsis ICD Codes: A41.9 - Sepsis, unspecified organism; R65.20 - Severe sepsis without septic shock SNOMED: 78418482 (3) Toxic metabolic encephalopathy ICD Codes: G92 - Toxic encephalopathy SNOMED: 395499532 (4) Diabetes mellitus with hyperglycemia ICD Codes: E11.65 - Type 2 diabetes mellitus with hyperglycemia SNOMED: 44568807, 33723104 (5) OWEN (acute kidney injury) ICD Codes: N17.9 - Acute kidney failure, unspecified SNOMED: 6725840, 42070079 (6) NSTEMI (non-ST elevated myocardial infarction) ICD Codes: I21.4 - Non-ST elevation (NSTEMI) myocardial infarction SNOMED: 22589047, 140415187 (7) Urinary tract infection due to ESBL Klebsiella ICD Codes: N39.0 - Urinary tract infection, site not specified; B96.89 - Other specified bacterial agents as the cause of diseases classified elsewhere SNOMED: 892407272, 328952796110050 (8) Suspected acute on chronic CHF (9) Decubitus skin ulcer ICD Codes: L89.90 - Pressure ulcer of unspecified site, unspecified stage SNOMED: 316044064 (10) ATN (acute tubular necrosis) ICD Codes: N17.0 - Acute kidney failure with tubular necrosis SNOMED: 10348465 (11) Parkinson disease ICD Codes: G20 - Parkinson disease SNOMED: 19591181 (12) Bedbug bite ICD Codes: W57.XXXA - Bitten or stung by nonvenomous insect and other nonvenomous arthropods, initial encounter SNOMED: 304458085 (13) Hypernatremia ICD Codes: E87.0 - Hyperosmolality and hypernatremia SNOMED: 414067582 (14) Hypokalemia ICD Codes: E87.6 - Hypokalemia SNOMED: 87459556 Status: stable Assessment/Plan: 84-year-old lady from [facility] with history of hypertension, uncontrolled diabetes, and Parkinson disease, who was brought to the emergency room by family member for altered mental status and weakness. Found to have severe sepsis due to ESBL UTI, group b strep bacteremia, ?endocarditis, OWEN vs OWEN on CKD and NSTEMI. Heart failure. BNP of more than 24,000. Echocardiogram Nl EF. ?HFpEF. developed hypernatremia. Hypokalemia. Now left foot/1st toe osteomyelitis. Plan: - heparin gtt per acs protocol, DC per cards, no chest pain, stable troponin. Continue ASA, beta lisbeth (Lopressor 25), hold off on statin due to rhabdomyolysis. Decreased Lopressor to 12.5 mg bid due to low heart rate, eventually had to stop due to bradycardia on 08/29 - trend tn/ekg - cardiology consult appreciated - TTE, normal EF, no vegetations, in view of strep bacteremia in 11/08 bottles, needs a ERIBERTO to r/o endocarditis, per ID alternatively can treat empirically for 6 weeks total IV abx -surveillance cultures negative -monitor serum sodium, replace k as needed - ID consult appreciated - vancomycin, cefepime, flagyl - day # 19 of abx, will need 6 weeks treatment for osteomyelitis MRI left foot: first metatarsal shaft, head and neck, first proximal phalange and distal phalange consistent with osteomyelitis -Follow up arterial studies left foot. -wound culture, normal skin maximino but per ID Liley polymicrobial infection - follow urine and blood cx's. 11/08 strep bacteremia with wbc 25k--> now 9, repeat blood cultures no growth to date - c/w PD regimen - A1c 9-->insulin sliding scale ac/hs, change to resistant scale, fsbg controlled - supportive care - delirium precautions -d/w ID -discuss goal of care with family, grand daughter [phone] -Add lasix 40 mg BID -General surgery consult appreciated. Time spent on patient care, 37 mins, >50% on counseling and coordination of care Time of this note may not reflect the time of the clinical encounter. Subjective Date patient seen: Sep 11, 2019 ROS Limited/Unobtainable: Yes Allergies: Coded Allergies: No Known Allergies (Unverified , 10/23/13) Subjective poor historian. following up for severe sepsis, streptococcus agalactiae - group b bacteremia, endocarditis ruled out by ERIBERTO , esbl e.coli uti, sirs, leukocytosis, ? hcap/aspiration vs pulmonary edema, left foot great toe/1st toe wound infection - MRI c/w osteomyelitis, elevated sed rate Objective Last 24 Hour Vital Signs Date Time Temp Pulse Resp B/P (MAP) Pulse Ox O2 Delivery O2 Flow Rate FiO2 09/11/19 08:48 65 126/50 09/11/19 08:29 Nasal Cannula 2.0 09/11/19 08:00 97.1 65 19 126/50 (75) 97 09/11/19 04:00 97.3 90 16 108/56 (73) 98 09/11/19 00:00 97.3 90 17 106/56 (73) 98 09/10/19 21:00 Nasal Cannula 2.0 09/10/19 20:00 97.5 71 18 104/54 (71) 98 09/10/19 16:00 98.4 88 19 137/77 (97) 98 09/10/19 12:01 67 09/10/19 12:00 98.6 90 20 138/69 (92) 98 Intake and Output 09/10/19 09/11/19 19:00 07:00 Intake Total 640 ml Output Total 600 ml 300 ml Balance 40 ml -300 ml Intake Oral 640 ml Output Urine Total 600 ml 300 ml Laboratory Tests 09/11/19 06:20: White Blood Count 6.3, Red Blood Count 2.96L, Hemoglobin 8.1L, Hematocrit 24.4L , Mean Corpuscular Volume 83, Mean Corpuscular Hemoglobin 27.5, Mean Corpuscular Hemoglobin Concent 33.3, Red Cell Distribution Width 13.2, Platelet Count 361, Mean Platelet Volume 5.3L, Neutrophils (%) (Auto) 71.5, Lymphocytes ( %) (Auto) 18.6L, Monocytes (%) (Auto) 7.9, Eosinophils (%) (Auto) 1.4, Basophils (%) (Auto) 0.6, Sodium Level 143, Potassium Level 3.5, Chloride Level 107, Carbon Dioxide Level 30, Anion Gap 6, Blood Urea Nitrogen 13, Creatinine 0.8, Estimat Glomerular Filtration Rate , Glucose Level 114H, Calcium Level 8.5 , Total Bilirubin 0.4, Aspartate Amino Transf (AST/SGOT) 40H, Alanine Aminotransferase (ALT/SGPT) 11L, Alkaline Phosphatase 81, Total Protein 7.2, Albumin 1.9L, Globulin 5.3, Albumin/Globulin Ratio 0.4L Height (Feet): 5 Height (Inches): 3.00 Weight (Pounds): 109 Objective General Appearance: WD/WN, no apparent distress, awake, confused HEENT: normocephalic, atraumatic, PERRL, EOMI, supple, no JVD Neck: non-tender, normal alignment, supple Respiratory/Chest: chest wall non-tender, lungs clear, normal breath sounds, no respiratory distress, no accessory muscle use Cardiovascular/Chest: normal peripheral pulses, normal rate, regular rhythm, no gallop/murmur, no JVD Abdomen: non tender, soft, no organomegaly Extremities: no edema, no cyanosis Neurologic: disoriented Skin: +debuts, + left foot/1st toe ulcer/Eschar. Chago Lyons M.D. Sep 11, 2019 12:02
--- NOTE | 2019-09-11 12:29 | NUR ---
CASE MANAGEMENT:REVIEW 09/11/19 SI: STREP BACTEREMIA. ERIBERTO(-) ACUTE OSTEOMYELITIS OF BIG TOE 97.1 65 19 126/50 97% ON 2L/NC H/H-8.1/24.4 IS: IV VANCOMYCIN Q12 IV CEFEPIME Q24 IVF@30/HR NORVASC PO QD ASA PO QD : TELEMETRY STATUS DCP: FROM HOME PLAN: NEEDS 6 WEEKS OF IV ANTIBIOTICS....DAY #9 OF 42
--- NOTE | 2019-09-11 15:03 | Surgery Progress Note ---
Surgery Progress Note Subjective Additional Comments comfortable no drainage santyl applied no n/v/f/c Objective Last 24 Hour Vital Signs Date Time Temp Pulse Resp B/P (MAP) Pulse Ox O2 Delivery O2 Flow Rate FiO2 09/11/19 12:00 97.2 67 19 140/71 (94) 97 09/11/19 08:48 65 126/50 09/11/19 08:29 Nasal Cannula 2.0 09/11/19 08:00 97.1 65 19 126/50 (75) 97 09/11/19 04:00 97.3 90 16 108/56 (73) 98 09/11/19 00:00 97.3 90 17 106/56 (73) 98 09/10/19 21:00 Nasal Cannula 2.0 09/10/19 20:00 97.5 71 18 104/54 (71) 98 09/10/19 16:00 98.4 88 19 137/77 (97) 98 I&O Intake and Output 09/10/19 09/11/19 19:00 07:00 Intake Total 640 ml Output Total 600 ml 300 ml Balance 40 ml -300 ml Intake Oral 640 ml Output Urine Total 600 ml 300 ml Dressing: other Wound: other Drains: other Cardiovascular: RSR Respiratory: decreased breath sounds Abdomen: soft, present bowel sounds, non-distended Extremities: other Laboratory Tests Test 09/11/19 06:20 White Blood Count 6.3 K/UL (4.8-10.8) Red Blood Count 2.96 M/UL (4.20-5.40) L Hemoglobin 8.1 G/DL (12.0-16.0) L Hematocrit 24.4 % (37.0-47.0) L Mean Corpuscular Volume 83 FL (80-99) Mean Corpuscular Hemoglobin 27.5 PG (27.0-31.0) Mean Corpuscular Hemoglobin Concent 33.3 G/DL (32.0-36.0) Red Cell Distribution Width 13.2 % (11.6-14.8) Platelet Count 361 K/UL (150-450) Mean Platelet Volume 5.3 FL (6.5-10.1) L Neutrophils (%) (Auto) 71.5 % (45.0-75.0) Lymphocytes (%) (Auto) 18.6 % (20.0-45.0) L Monocytes (%) (Auto) 7.9 % (1.0-10.0) Eosinophils (%) (Auto) 1.4 % (0.0-3.0) Basophils (%) (Auto) 0.6 % (0.0-2.0) Sodium Level 143 MMOL/L (136-145) Potassium Level 3.5 MMOL/L (3.5-5.1) Chloride Level 107 MMOL/L (98-107) Carbon Dioxide Level 30 MMOL/L (21-32) Anion Gap 6 mmol/L (5-15) Blood Urea Nitrogen 13 mg/dL (7-18) Creatinine 0.8 MG/DL (0.55-1.30) Estimat Glomerular Filtration Rate mL/min (>60) Glucose Level 114 MG/DL (74-106) H Calcium Level 8.5 MG/DL (8.5-10.1) Total Bilirubin 0.4 MG/DL (0.2-1.0) Aspartate Amino Transf (AST/SGOT) 40 U/L (15-37) H Alanine Aminotransferase (ALT/SGPT) 11 U/L (12-78) L Alkaline Phosphatase 81 U/L (46-116) Total Protein 7.2 G/DL (6.4-8.2) Albumin 1.9 G/DL (3.4-5.0) L Globulin 5.3 g/dL Albumin/Globulin Ratio 0.4 (1.0-2.7) L Plan Problems: (1) Decubitus skin ulcer Assessment & Plan: Pt presented on admission with multiple pressure injuries. DTPI Sacrum (L)10cm x (W)9cm with small slit at sacrococcygeal area(L)0.5cm- small amt sanguineous exudate noted.Base of wound is maroon and indurated. Two Unstageable pressure injuries in close proximity noted to L hip. Base of each wound is necrotic and soft with marginal erythema.(L)2cm x (W)3.7cm NO erythema or odor noted. Historical Scar noted at L hip in close proximity to wound. L heel boggy with non-blanching erythema.(L)4cm x (W)4.5cm R heel boggy with non-blanching erythema.(L)5cm x (W)6cm. Pt noted to have several small black droppings in bed. Upon further inspection. Single small brownish bug observed crawling in bed. At posterior aspect of neck pt noted to have macular red rash.Red rash also noted to L axilla .Complete bed Bath provided.And all bed linen removed and mattress sanitized. EVS was notified by Primary nurse. left great toe with eschar Tx.plan: Apply Moisture Barrier Paste to Sacrum. Cover with Optifoam drsg. Change every 3 days and prn. Cleanse L hip with Saline. Apply santyl. Apply Cavilon Skin Barrier periwound.Cover with Optifoam drsg. Change every 3 days and prn. Apply Cavilon Skin Barrier to both heels. Cover each heel with Optifoam drsg. Change every 7 days and prn. APM/YURIY mattress overlay. Reposition at least every 2hours or as tolerated. Off-load heels with pillow. podiatry eval wash left foot daily, apply Betadine to eschar and gauze (2) Sepsis Assessment & Plan: Leukocytosis, abnormal labs, tachycardic, per report fevers UA identified urosepsis bacteremic leukocytosis resolved improving overall anemia fevers resolved On antibiotics as per infectious disease Trend labs Okay for diet A.m. labs Wounds unlikely etiology of sepsis as they are chronic and do not look actively infected discussed with medical teams discussed with podiatry plan for abx d/c planning cont abx We will follow with recommendations thank you for let me participate in patient' s care Darrius Miller Sep 11, 2019 15:03
[2019-09-11] MEDS ORDERED: Morphine Sulfate 2mg/ml Inj(IV/IM USE ONLY) IVP PRN ×2 (15:15→19:30)
--- NOTE | 2019-09-11 15:31 | NUR ---
ST NOTES: SWALLOW STATUS: PATIENT SEEN FOR DYSPHAGIA. PER [employer]QUIPMENT SPECIALISTENEIDA, PATIENT ONLY TAKING 25-50% VERY SLOWLY BUT NO OVERT S/S OF ASPIRATION. UNABLE TO COMPLETE MOD BARIUM SWALLOW STUDY TODAY DUE TO SCHEDULE CONFLICTS. GOALS MET FOR STAFF EDUCATED/TRAINED IN POSTED PRECAUTIONS BUT GOAL NOT MET FOR INTAKE. PT IS ALERT AND BUT DID NOT WANT PO TRIALS. PER RNORALIA, PATIENT WILL TAKE A FEW BITES AND REFUSE MORE. LATER SHE WILL SAY SHE IS HUNGRY. PLAN: CONTINUE WITH CURRENT PUREED AND NECTAR THICK LIQUIDS WITH POSTED ASPIRATION PRECAUTIONS. MOD BARIUM SWALLOW STUDY IP OR OP IF D/C ( DO NOT HOLD UP DC FOR THIS STUDY)
[2019-09-11 16:00] VITALS: BP 129/54
--- NOTE | 2019-09-11 18:01 | NUR ---
NURSE NOTES:WOUND CARE FOLLOW-UP NOTES:Base of sacral wound is 90% soft necrosis with surrounding moist erythematous margins.Wound is malodorous Periwound is erythematous without induration or elevation in skin temp.(L)8cm x (W)10.5cm. Darker skin tone noted to R and L ischium. Unstageable pressure injury noted L hip Base of wound 90% necrotic cap that is semi-detached at edges,Oozing small amt brown exudate. Remaining 10% of wound is moist and martha . Edges are erythematous and flat.Wound is malodorous. Periwound is erythematous and indurated. No elevation in skin temp. (L)2.5cm x (W)1.9cm. Two small dark skin pigmentations R Hip that are in close proximity. NO erythema or induration noted. L foot edematous. Dorsal aspect of L foot is dusky. Necrotic ulcer L hallux /L 1st metatarsal (L)3.7cm x (W)5.2cm.Edges are moist and erythematous. Wound is malodorous. Small amt brown exudate noted. Periwound including L st metatarsal is dusky and fluctuant. L heel is fluctuant with non-blanching erythema. Stable dry eschar noted to distal /lateral R foot. Periwound without erythema, induration or fluctuance.(L)0.4cm x (W)0.3cm. Stable dry eschar noted to lateral R 5th metatarsal.(L)0.3cm x (W)0.3cm. NO erythema,induration or fluctuance periwound. R heel is boggy with non-blanching erythema. Consulted with and orders received to change Tx orders for Sacrum and L hip to Santyl Moist gauze daily and prn. Primary nurse is aware and orders changed. Tx.Plan: Cleanse Sacral wound with Saline. Apply Nickel thick Layer Santyl with Saline moistened Gauze. Apply Moisture Barrier Paste periwound. Cover with Optifoam drsg. Daily and prn. Cleanse L hip wound with Saline. Apply Nickel Thick layer of Santyl with Saline Moistened Gauze. Apply Moisture Barrier Paste periwound. Cover with Optifoam drsg.Daily and prn. Cleanse Wound L Hallux with Saline. Apply Nickel thick Layer Santyl with Saline moistened gauze. Cover with ABD Pad and wrap with Kerlix Daily and prn. Apply Cavilon Skin Barrier to Distal/Lateral R foot /R 5th metatarsal Daily. Apply Cavilon SKin Barrier to both heels. Cover each heel with Optifoam drsg. Change every 7 days and prn. Apply Cavilon Skin Barrier to R hip. Cover with Optifoam drsg. Change every 7 days and prn. APM/YURIY Mattress overlay. Reposition at least every 2hours or as tolerated. Off-load heels with pillow.
--- NOTE | 2019-09-11 18:39 | NUR ---
NURSE NOTES: patient was transferred from Tele placed room 406-2 under Luke Sutherland. Dx of AMS weakness 2ndary UTI and Bacteremia. alert. disoriented. limited verbal communication d/t impaired cognition. no respiratory distress noted. no facial grimacing during care. IV on LUA20g, RFA22 running NS@30/hr. skin assessment done with ISHAAN Duarte. picture taken. contact isolation d/t ESBL urine and previous bed bug. PPE at all times. P200 mattress for wound management. f/c draining. no hematuria. no sediment noted. scd on for DVT PPX. bed in the lowest position and locked. call light within reach. will continue to provide plan of care.
--- NOTE | 2019-09-11 18:43 | NUR ---
HAND-OFF: Report given to ISAHAN Fortune. Pt stable for transfer.
[2019-09-11] MEDS ORDERED: Gadavist 7.5mMol/7.5ml vial IV PRN (19:00)
--- NOTE | 2019-09-11 19:22 | NUR ---
HAND-OFF: Report given to ISHAAN Acosta.
--- NOTE | 2019-09-11 19:30 | NUR ---
NURSE NOTES: Received patient in bed. A&OX1, confused. IV sites are patent and intact. NC 2L on, no s/s of respiratory distress noted. Buckner draining well by gravity, yellow urine noted. Bed in lowest position. Call light within reach. Will continue to monitor.
[2019-09-11 20:00] VITALS: BP 107/76
[2019-09-11] MEDS ORDERED: Vancomycin 500 MG in NS 110 ML IVPB SCH ×4 (20:00)
[2019-09-11] MEDS ORDERED: Cefepime HCl 2 GM in NS 110 ML IVPB SCH (21:00)
[2019-09-11] MEDS: Cefepime HCl 2 GM in NS 110 ML IVPB SCH (21:00)
[2019-09-12] VITALS: BP 124/57
[2019-09-12] MEDS: metroNIDAZOLE 500mg tab ORAL SCH ×3 (00:38→17:23)
[2019-09-12 04:00] VITALS: BP 139/56
[2019-09-12] MEDS: NovoLOG Insulin Flexpen SUBQ SCH ×4 (06:04→20:28)
--- NOTE | 2019-09-12 06:30 | NUR ---
NURSE NOTES: Paged regarding blood sugar 59 last night. Waiting a call back.
[2019-09-12 07:05] LABS: ANION GAP 8 mmol/L (5-15); BLOOD UREA NITROGEN 9 mg/dL (7-18); CALCIUM 8.5 MG/DL (8.5-10.1); CARBON DIOXIDE 28 MMOL/L (21-32); CHLORIDE 107 MMOL/L (98-107); CREATININE 0.9 MG/DL (0.55-1.30); POTASSIUM 3.7 MMOL/L (3.5-5.1); SODIUM 143 MMOL/L (136-145)
[2019-09-12 07:11] LABS: BASOPHILS % (AUTO) 0.6 % (0.0-2.0); EOSINOPHILS % (AUTO) 1.4 % (0.0-3.0); HEMATOCRIT 24.2 % (37.0-47.0); LYMPHOCYTES % (AUTO) 20.2 % (20.0-45.0); MEAN CORPUSCULAR VOLUME 82 FL (80-99); MONOCYTES % (AUTO) 6.8 % (1.0-10.0); PLATELET COUNT 402 K/UL (150-450); RED BLOOD COUNT 2.94 M/UL (4.20-5.40); RED CELL DISTRIBUTION WIDTH 13.7 % (11.6-14.8); WHITE BLOOD COUNT 6.6 K/UL (4.8-10.8)
--- NOTE | 2019-09-12 07:11 | NUR ---
HAND-OFF: Report given to alex QUIROS. Still waiting for call back from Dr. Amos. Endorsed to incoming nurse follow up Dr's call.
--- NOTE | 2019-09-12 07:46 | NUR ---
NURSE NOTES: received report from ISHAAN Acosta. patient in bed. alert. disoriented. limited verbal communication d/t impaired cognition. no respiratory distress noted. facial grimacing during care. F/C draining. no hematuria noted. yellow. IV on LUA20g. saline lock. RFA22g running NS @30/hr. HOB during feeding. consumed 50%of breakfast. no s/sx of hypoglycemia at this time. contact isolation d/t ESBL urine. PPE at all times. p200 mattress for wound management. turn and reposition. bed in the lowest position and locked. call light within reach. alarm on . will continue to provide plan of care.
[2019-09-12 08:00] VITALS: BP 117/59
--- NOTE | 2019-09-12 08:16 | NUR ---
NURSE NOTES: Chelsea from microbiology called and stated that patient is positive for VRE urine. ISHAAN Vaughan made aware and message was left with MD Mcfadden. Awaiting any new orders.
[2019-09-12] MEDS: Aspirin Baby 81mg ORAL SCH (08:52)
[2019-09-12] MEDS: Levodopa/Carbidopa 10/100 tab ORAL SCH ×3 (08:52→17:24)
[2019-09-12] MEDS: Vancomycin 500 MG in NS 110 ML IVPB SCH ×2 (08:53→20:26)
--- NOTE | 2019-09-12 10:43 | Cardiac Electrophysiology PN ---
Assessment/Plan Assessment/Plan 1. Elevated troponin due to renal failure with creatinine 1.7. Troponins low level between 0.5 and 0.7. No CP. ECG LBBB Echo Nl EF and no vegetations. On aspirin. Off statin in view of rhabdomyolysis. Off beta lisbeth for bradycardia 2. Hypertension. On Norvasc 5 3. LBBB and sinus dorian in 30s. Resolved off Lopressor 4. Nonsustained VT. 5. Heart failure. BNP of more than 24,000. Echocardiogram Nl EF. Could be HFpEF 6. Urinary tract infection, on IV antibiotic. 7. 4/4 Strep Bacteremia with WBC 25K. Down to 6 K. No endocarditis. ERIBERTO by Dr. New 09/10/19 showed no vegetation On Iv Abx 8. Renal failure. Creatinine of 1.7. Normalized to 1.1. 9. Uncontrolled diabetes 10. Left toe diabetic ulcer. On iv Abx. Podiatry follow DW RN Subjective Subjective Remained in SR with LBBB. ERIBERTO by Dr. New 09/10/19 showed no vegetation. On iv Abx Objective Last 24 Hour Vital Signs Date Time Temp Pulse Resp B/P (MAP) Pulse Ox O2 Delivery O2 Flow Rate FiO2 09/12/19 09:00 Nasal Cannula 2.0 09/12/19 08:53 87 117/59 09/12/19 08:00 87.0 87 14 117/59 (78) 94 09/12/19 04:00 98.0 80 18 139/56 (83) 94 09/12/19 00:00 98.0 73 20 124/57 (79) 95 09/11/19 21:00 Nasal Cannula 2.0 09/11/19 20:00 98.5 77 20 107/76 (86) 100 09/11/19 16:02 96.1 09/11/19 16:00 96.1 82 20 129/54 (79) 95 09/11/19 12:00 97.2 67 19 140/71 (94) 97 Intake and Output 09/11/19 09/12/19 19:00 07:00 Intake Total 300 ml 550 ml Output Total 500 ml 600 ml Balance -200 ml -50 ml Intake Oral 300 ml IV Total 550 ml Output Urine Total 500 ml 600 ml Laboratory Tests Test 09/12/19 06:45 White Blood Count 6.6 K/UL (4.8-10.8) Red Blood Count 2.94 M/UL (4.20-5.40) L Hemoglobin 8.0 G/DL (12.0-16.0) L Hematocrit 24.2 % (37.0-47.0) L Mean Corpuscular Volume 82 FL (80-99) Mean Corpuscular Hemoglobin 27.3 PG (27.0-31.0) Mean Corpuscular Hemoglobin Concent 33.1 G/DL (32.0-36.0) Red Cell Distribution Width 13.7 % (11.6-14.8) Platelet Count 402 K/UL (150-450) Mean Platelet Volume 5.6 FL (6.5-10.1) L Neutrophils (%) (Auto) 71.0 % (45.0-75.0) Lymphocytes (%) (Auto) 20.2 % (20.0-45.0) Monocytes (%) (Auto) 6.8 % (1.0-10.0) Eosinophils (%) (Auto) 1.4 % (0.0-3.0) Basophils (%) (Auto) 0.6 % (0.0-2.0) Sodium Level 143 MMOL/L (136-145) Potassium Level 3.7 MMOL/L (3.5-5.1) Chloride Level 107 MMOL/L (98-107) Carbon Dioxide Level 28 MMOL/L (21-32) Anion Gap 8 mmol/L (5-15) Blood Urea Nitrogen 9 mg/dL (7-18) Creatinine 0.9 MG/DL (0.55-1.30) Estimat Glomerular Filtration Rate mL/min (>60) Glucose Level 156 MG/DL (74-106) H Calcium Level 8.5 MG/DL (8.5-10.1) Vancomycin Level Trough 13.6 ug/mL (5.0-12.0) H Objective HEAD AND NECK: No JVD LUNGS: Clear. CARDIOVASCULAR: Regular S1 and S2 with no gallop or murmur. ABDOMEN: Soft. EXTREMITIES: Left toe ulcer Luis Purdy MD Sep 12, 2019 10:43
--- NOTE | 2019-09-12 11:06 | General Progress Note ---
Assessment/Plan Problem List: (1) Bacteremia due to group B Streptococcus ICD Codes: R78.81 - Bacteremia SNOMED: 606438829449 (2) Severe sepsis ICD Codes: A41.9 - Sepsis, unspecified organism; R65.20 - Severe sepsis without septic shock SNOMED: 65355891 (3) Toxic metabolic encephalopathy ICD Codes: G92 - Toxic encephalopathy SNOMED: 649911930 (4) Diabetes mellitus with hyperglycemia ICD Codes: E11.65 - Type 2 diabetes mellitus with hyperglycemia SNOMED: 47146426, 99654147 (5) OWEN (acute kidney injury) ICD Codes: N17.9 - Acute kidney failure, unspecified SNOMED: 3114344, 48845305 (6) NSTEMI (non-ST elevated myocardial infarction) ICD Codes: I21.4 - Non-ST elevation (NSTEMI) myocardial infarction SNOMED: 69009958, 145733227 (7) Urinary tract infection due to ESBL Klebsiella ICD Codes: N39.0 - Urinary tract infection, site not specified; B96.89 - Other specified bacterial agents as the cause of diseases classified elsewhere SNOMED: 061410639, 857652304893533 (8) Suspected acute on chronic CHF (9) Decubitus skin ulcer ICD Codes: L89.90 - Pressure ulcer of unspecified site, unspecified stage SNOMED: 756711599 (10) ATN (acute tubular necrosis) ICD Codes: N17.0 - Acute kidney failure with tubular necrosis SNOMED: 92428882 (11) Parkinson disease ICD Codes: G20 - Parkinson disease SNOMED: 62914305 (12) Bedbug bite ICD Codes: W57.XXXA - Bitten or stung by nonvenomous insect and other nonvenomous arthropods, initial encounter SNOMED: 678651140 (13) Hypernatremia ICD Codes: E87.0 - Hyperosmolality and hypernatremia SNOMED: 915297129 (14) Hypokalemia ICD Codes: E87.6 - Hypokalemia SNOMED: 06685510 Status: stable Assessment/Plan: 84-year-old lady from [facility] with history of hypertension, uncontrolled diabetes, and Parkinson disease, who was brought to the emergency room by family member for altered mental status and weakness. Found to have severe sepsis due to ESBL UTI, group b strep bacteremia, OWEN vs OWEN on CKD and NSTEMI. Heart failure. BNP of more than 24,000. Echocardiogram Nl EF. ?HFpEF. developed hypernatremia. Hypokalemia. Now left foot/1st toe osteomyelitis. Plan: - heparin gtt per acs protocol, DC per cards, no chest pain, stable troponin. Continue ASA, beta lisbeth (Lopressor 25), hold off on statin due to rhabdomyolysis. Decreased Lopressor to 12.5 mg bid due to low heart rate, eventually had to stop due to bradycardia on 08/29 - trend tn/ekg - cardiology consult appreciated - TTE, normal EF, no vegetations, in view of strep bacteremia in 11/08 bottles, ERIBERTO done ruled out endocarditis, -surveillance cultures negative -monitor serum sodium, replace k as needed - ID consult appreciated - vancomycin, cefepime, flagyl - day # 20 of abx, will need 6 weeks treatment for osteomyelitis MRI left foot: first metatarsal shaft, head and neck, first proximal phalange and distal phalange consistent with osteomyelitis -Follow up arterial studies left foot. -wound culture, normal skin maximino but per ID Likely polymicrobial infection - follow urine and blood cx's. 11/08 strep bacteremia with wbc 25k--> now normal , repeat blood cultures no growth to date - c/w PD regimen - A1c 9-->insulin sliding scale ac/hs, change to resistant scale, fsbg controlled - supportive care - delirium precautions -d/w ID -discuss goal of care with family, grand daughter [phone] - lasix 40 mg BID -General surgery consult appreciated. Time spent on patient care, 37 mins, >50% on counseling and coordination of care Time of this note may not reflect the time of the clinical encounter. Subjective Date patient seen: Sep 12, 2019 Allergies: Coded Allergies: No Known Allergies (Unverified , 10/23/13) Subjective poor historian. following up for severe sepsis, streptococcus agalactiae - group b bacteremia, endocarditis ruled out by ERIBERTO , esbl e.coli uti, sirs, leukocytosis, ? hcap/aspiration vs pulmonary edema, left foot great toe/1st toe wound infection - MRI c/w osteomyelitis, elevated sed rate Objective Last 24 Hour Vital Signs Date Time Temp Pulse Resp B/P (MAP) Pulse Ox O2 Delivery O2 Flow Rate FiO2 2/6/20 09:00 Nasal Cannula 2.0 09/12/19 08:53 87 117/59 09/12/19 08:00 87.0 87 14 117/59 (78) 94 09/12/19 04:00 98.0 80 18 139/56 (83) 94 09/12/19 00:00 98.0 73 20 124/57 (79) 95 09/11/19 21:00 Nasal Cannula 2.0 09/11/19 20:00 98.5 77 20 107/76 (86) 100 09/11/19 16:02 96.1 09/11/19 16:00 96.1 82 20 129/54 (79) 95 09/11/19 12:00 97.2 67 19 140/71 (94) 97 Intake and Output 09/11/19 09/12/19 19:00 07:00 Intake Total 300 ml 550 ml Output Total 500 ml 600 ml Balance -200 ml -50 ml Intake Oral 300 ml IV Total 550 ml Output Urine Total 500 ml 600 ml Laboratory Tests 09/12/19 06:45: White Blood Count 6.6, Red Blood Count 2.94L, Hemoglobin 8.0L, Hematocrit 24.2L , Mean Corpuscular Volume 82, Mean Corpuscular Hemoglobin 27.3, Mean Corpuscular Hemoglobin Concent 33.1, Red Cell Distribution Width 13.7, Platelet Count 402, Mean Platelet Volume 5.6L, Neutrophils (%) (Auto) 71.0, Lymphocytes ( %) (Auto) 20.2, Monocytes (%) (Auto) 6.8, Eosinophils (%) (Auto) 1.4, Basophils (%) (Auto) 0.6, Sodium Level 143, Potassium Level 3.7, Chloride Level 107, Carbon Dioxide Level 28, Anion Gap 8, Blood Urea Nitrogen 9, Creatinine 0.9, Estimat Glomerular Filtration Rate , Glucose Level 156H, Calcium Level 8.5, Vancomycin Level Trough 13.6H Height (Feet): 5 Height (Inches): 3.00 Weight (Pounds): 109 Objective General Appearance: WD/WN, no apparent distress, awake, confused HEENT: normocephalic, atraumatic, PERRL, EOMI, supple, no JVD Neck: non-tender, normal alignment, supple Respiratory/Chest: chest wall non-tender, lungs clear, normal breath sounds, no respiratory distress, no accessory muscle use Cardiovascular/Chest: normal peripheral pulses, normal rate, regular rhythm, no gallop/murmur, no JVD Abdomen: non tender, soft, no organomegaly Extremities: no edema, no cyanosis Neurologic: disoriented Skin: +debuts, + left foot/1st toe ulcer/Eschar. Chago Lyons M.D. Sep 12, 2019 11:06
[2019-09-12 12:00] VITALS: BP 136/60
--- NOTE | 2019-09-12 13:01 | NUR ---
CASE MANAGEMENT:REVIEW SI;STREP BACTEREMIA. ENCEPHALOPATHY. ESBL KLEBSIELLA UTI. 97.0 87 14 139/56 93% 2L NC H/H 8.0/24.2 IS;VANCOMYCIN IV Q12 HRS FLAGYL PO Q8 HRS ASA PO QD ZYVOX PO Q12 HRS MED SURG STATUS DCP; FROM HOME
--- NOTE | 2019-09-12 13:42 | NUR ---
RD ASSESSMENT & RECOMMENDATIONS SEE CARE ACTIVITY FOR COMPLETE ASSESSMENT DAILY ESTIMATED NEEDS: Needs based on Wounds, DM 49kg 30-35 kcals/kg 7749-6155 total kcals 1.25-2 g protein/kg 61-98 g total protein 25-30ml/kcal mL/kg 8984-5362 total fluid mLs NUTRITION DIAGNOSIS: Increased kcal and pro needs r/t wound healing as evidenced by pt w/ multiple areas of skin breakdown including unstageable L hip wounds x2, refer to WC eval for full assessment. CURRENT DIET:CCHO MED, pureed moist w/ NTL PO DIET RECOMMENDATIONS: CCHO MED / texture per [employer] ADDITIONAL RECOMMENDATIONS: 1) Glucerna TID w/ meals added; Encourage HD snack intake 2) Hypoglycemic episode, rec low rate D5 w/ continued fair to poor intake 3) Wound care: if tolerated ANTONIA BID + Vit C 250mg BID + MVI w/ min q daily 4) Calibrated bed scale wts daily, EMR appear stable 5) Consider appetite stimulant w/ continued poor and variable PO 6) Replete lytes as needed
[2019-09-12 15:15] LABS: APPEARANCE,URINE VERY CLOUDY; BILIRUBIN, URINE NEGATIVE (NEGATIVE); GLUCOSE, URINE (UA) 1+ (NEGATIVE); KETONES,URINE 1+ (NEGATIVE); LEUKOCYTE ESTERASE ,URINE 3+ (NEGATIVE); NITRITE,URINE NEGATIVE (NEGATIVE); PH,URINE 8 (4.5-8.0); PROTEIN,URINE 2+ (NEGATIVE); UROBILINOGEN,URINE NORMAL MG/DL (0.0-1.0)
[2019-09-12 15:16] LABS: COLOR,URINE YELLOW
--- NOTE | 2019-09-12 15:42 | Surgery Progress Note ---
Surgery Progress Note Subjective Additional Comments no acute events labs reviewed exam stable Objective Last 24 Hour Vital Signs Date Time Temp Pulse Resp B/P (MAP) Pulse Ox O2 Delivery O2 Flow Rate FiO2 09/12/19 12:00 98.6 80 16 136/60 (85) 93 09/12/19 09:00 Nasal Cannula 2.0 09/12/19 08:53 87 117/59 09/12/19 08:00 97.0 87 14 117/59 (78) 94 09/12/19 08:00 87.0 87 14 117/59 (78) 94 09/12/19 04:00 98.0 80 18 139/56 (83) 94 09/12/19 00:00 98.0 73 20 124/57 (79) 95 09/11/19 21:00 Nasal Cannula 2.0 09/11/19 20:00 98.5 77 20 107/76 (86) 100 09/11/19 16:02 96.1 09/11/19 16:00 96.1 82 20 129/54 (79) 95 I&O Intake and Output 09/11/19 09/12/19 19:00 07:00 Intake Total 300 ml 550 ml Output Total 500 ml 600 ml Balance -200 ml -50 ml Intake Oral 300 ml IV Total 550 ml Output Urine Total 500 ml 600 ml Dressing: saturated Wound: other Drains: other Cardiovascular: RSR Respiratory: decreased breath sounds Abdomen: soft, present bowel sounds Extremities: no cyanosis, other Laboratory Tests Test 09/12/19 06:45 09/12/19 14:45 White Blood Count 6.6 K/UL (4.8-10.8) Red Blood Count 2.94 M/UL (4.20-5.40) L Hemoglobin 8.0 G/DL (12.0-16.0) L Hematocrit 24.2 % (37.0-47.0) L Mean Corpuscular Volume 82 FL (80-99) Mean Corpuscular Hemoglobin 27.3 PG (27.0-31.0) Mean Corpuscular Hemoglobin Concent 33.1 G/DL (32.0-36.0) Red Cell Distribution Width 13.7 % (11.6-14.8) Platelet Count 402 K/UL (150-450) Mean Platelet Volume 5.6 FL (6.5-10.1) L Neutrophils (%) (Auto) 71.0 % (45.0-75.0) Lymphocytes (%) (Auto) 20.2 % (20.0-45.0) Monocytes (%) (Auto) 6.8 % (1.0-10.0) Eosinophils (%) (Auto) 1.4 % (0.0-3.0) Basophils (%) (Auto) 0.6 % (0.0-2.0) Sodium Level 143 MMOL/L (136-145) Potassium Level 3.7 MMOL/L (3.5-5.1) Chloride Level 107 MMOL/L (98-107) Carbon Dioxide Level 28 MMOL/L (21-32) Anion Gap 8 mmol/L (5-15) Blood Urea Nitrogen 9 mg/dL (7-18) Creatinine 0.9 MG/DL (0.55-1.30) Estimat Glomerular Filtration Rate mL/min (>60) Glucose Level 156 MG/DL (74-106) H Calcium Level 8.5 MG/DL (8.5-10.1) Vancomycin Level Trough 13.6 ug/mL (5.0-12.0) H Urine Color Yellow Urine Appearance Very cloudy Urine pH 8 (4.5-8.0) Urine Specific [place] 1.010 (1.005-1.035) Urine Protein 2+ (NEGATIVE) H Urine Glucose (UA) 1+ (NEGATIVE) H Urine Ketones 1+ (NEGATIVE) H Urine Blood 3+ (NEGATIVE) H Urine Nitrite Negative (NEGATIVE) Urine Bilirubin Negative (NEGATIVE) Urine Urobilinogen Normal MG/DL (0.0-1.0) Urine Leukocyte Esterase 3+ (NEGATIVE) H Urine RBC 2-4 /HPF (0 - 2) H Urine WBC Tntc /HPF (0 - 2) H Urine Squamous Epithelial Cells Moderate /LPF (NONE/OCC) H Urine Bacteria Few /HPF (NONE) Plan Problems: (1) Decubitus skin ulcer Assessment & Plan: Base of sacral wound is 90% soft necrosis with surrounding moist erythematous margins.Wound is malodorous Periwound is erythematous without induration or elevation in skin temp.(L)8cm x (W)10.5cm. Darker skin tone noted to R and L ischium. Unstageable pressure injury noted L hip Base of wound 90% necrotic cap that is semi-detached at edges,Oozing small amt brown exudate. Remaining 10% of wound is moist and martha . Edges are erythematous and flat.Wound is malodorous. Periwound is erythematous and indurated. No elevation in skin temp. (L)2.5cm x ( W)1.9cm. Two small dark skin pigmentations R Hip that are in close proximity. NO erythema or induration noted. L foot edematous. Dorsal aspect of L foot is dusky. Necrotic ulcer L hallux /L 1st metatarsal (L)3.7cm x (W)5.2cm.Edges are moist and erythematous. Wound is malodorous. Small amt brown exudate noted. Periwound including L st metatarsal is dusky and fluctuant. L heel is fluctuant with non-blanching erythema. Stable dry eschar noted to distal /lateral R foot. Periwound without erythema, induration or fluctuance.(L)0.4cm x (W)0.3cm. Stable dry eschar noted to lateral R 5th metatarsal.(L)0.3cm x (W)0.3cm. NO erythema,induration or fluctuance periwound. R heel is boggy with non-blanching erythema. change Tx orders for Sacrum and L hip to Santyl Moist gauze daily and prn. Primary nurse is aware and orders changed. Tx.Plan: Cleanse Sacral wound with Saline. Apply Nickel thick Layer Santyl with Saline moistened Gauze. Apply Moisture Barrier Paste periwound. Cover with Optifoam drsg. Daily and prn. Cleanse L hip wound with Saline. Apply Nickel Thick layer of Santyl with Saline Moistened Gauze. Apply Moisture Barrier Paste periwound. Cover with Optifoam drsg.Daily and prn. Cleanse Wound L Hallux with Saline. Apply Nickel thick Layer Santyl with Saline moistened gauze. Cover with ABD Pad and wrap with Kerlix Daily and prn. Apply Cavilon Skin Barrier to Distal/Lateral R foot /R 5th metatarsal Daily. Apply Cavilon SKin Barrier to both heels. Cover each heel with Optifoam drsg. Change every 7 days and prn. Apply Cavilon Skin Barrier to R hip. Cover with Optifoam drsg. Change every 7 days and prn. APM/YURIY Mattress overlay. Reposition at least every 2hours or as tolerated. Off-load heels with pillow. (2) Sepsis Assessment & Plan: Leukocytosis, abnormal labs, tachycardic, per report fevers UA identified urosepsis bacteremic leukocytosis resolved improving overall anemia fevers resolved On antibiotics as per infectious disease Trend labs Okay for diet A.m. labs Wounds unlikely etiology of sepsis as they are chronic and do not look actively infected discussed with medical teams discussed with podiatry plan for abx d/c planning cont abx We will follow with recommendations thank you for let me participate in patient' s care Darrius Miller Sep 12, 2019 15:42
[2019-09-12 16:00] VITALS: BP 138/55
--- NOTE | 2019-09-12 16:27 | NUR ---
ST NOTES: SWALLOW STATUS: GOALS NOT MET FOR INTAKE (ONLY 50%) PER ANIMAL CARE GIVER. NO OVERT S/S OF ASPIRATION REPORTED. GOALS MET FOR STAFF EDUCATED/TRAINED IN POSTED ASPIRATION PRECAUTIONS. PATIENT REFUSED PO TRIALS WITH [facility]. PLAN: CONTINUE WITH PLAN OF CARE IN SWALLOW EVAL REPORT MOD BARIUM SWALLOW STUDY IP OR OP IF DC (UNABLE TO COMPLETE TODAY DUE TO SCHEDULE CONFLICTS)
--- NOTE | 2019-09-12 19:26 | Infectious Diseases Prog Note ---
Assessment/Plan Assessment/Plan ASSESSMENT AND PLAN: 1. streptococcus agalactiae - group b bacteremia, ? endocarditis, esbl e.coli uti, sirs, leukocytosis, ? pna on chest x-ray - ? hcap/aspiration vs pulmonary edema, left foot great toe/1st toe wound infection - MRI c/w osteomyelitis, elevated sed rate vre and yeast on urine culture likely colonizer - vancomycin, cefepime, flagyl - day # 20 of abx, will need 6 weeks treatment for osteomyelitis - severe pvd on arterial studies - doubtful if abx will cure osteo with this level of ischemia - ERIBERTO negative for vegetation - wound culture right foot with normal maximino but likely polymicrobial infection - monitor labs, recent chest x-ray negative - d/w Dr. Lyons 2. Acute kidney injury with elevated creatinine. 3. History of diabetes. 4. weakness 5. Blood pressure treatment per primary care team and diabetes treatment per primary care team and consultants. 6. Parkinson's. 7. Dementia. 8. The patient does have also elevated troponin. Cardiology follow-up. 9. MAR was noted. 10. Case was discussed with RN. 11. No known allergies. 12. Social history is negative. 13. Family history is noncontributory. 14. Continue treatment per primary consultants. 15. Orders were noted and entered. Subjective Constitutional: Reports: other - more alert ; Denies: fever HEENT: Denies: congestion Respiratory: Denies: shortness of breath Cardiovascular: Denies: chest pain Genitourinary: Reports: other - + arnold Neurologic: Denies: headache Psychiatric: Reports: other - NA Skin: Denies: rash Hematologic: Denies: bleeding Musculoskeletal: Denies: pain Allergies: Coded Allergies: No Known Allergies (Unverified , 10/23/13) Objective Vital Signs Last 24 Hour Vital Signs Date Time Temp Pulse Resp B/P (MAP) Pulse Ox O2 Delivery O2 Flow Rate FiO2 09/12/19 16:00 97.8 74 16 138/55 (82) 94 09/12/19 12:00 98.6 80 16 136/60 (85) 93 09/12/19 09:00 Nasal Cannula 2.0 09/12/19 08:53 87 117/59 09/12/19 08:00 97.0 87 14 117/59 (78) 94 2/6/20 08:00 87.0 87 14 117/59 (78) 94 09/12/19 04:00 98.0 80 18 139/56 (83) 94 09/12/19 00:00 98.0 73 20 124/57 (79) 95 09/11/19 21:00 Nasal Cannula 2.0 09/11/19 20:00 98.5 77 20 107/76 (86) 100 Height (Feet): 5 Height (Inches): 3.00 Weight (Pounds): 109 General Appearance: WD/WN HEENT: normocephalic, atraumatic, anicteric, supple, no JVD Respiratory/Chest: lungs clear, normal breath sounds, no respiratory distress Cardiovascular: normal rate, regular rhythm, no gallop/murmur, no JVD Abdomen: normal bowel sounds, soft, non tender, no organomegaly, non distended Genitourinary: other - + arnold - urine slt cloudy Extremities: other - wounds - covered Skin: no rash 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 Pleural space: Unremarkable. No pneumothorax. Heart: Borderline cardiomegaly, potentially exaggerated by portable technique. Mediastinum: Calcified aorta. Bones/joints: Osteopenia. Degenerative changes. IMPRESSION: Mild vascular congestion CT abdomen: Impression: Anasarca, as described, with generalized edema of subcutaneous abdominal fat, moderate-sized bilateral pleural effusions, pulmonary interstitial and airspace edema Compressive atelectasis of the lower lobes due to the pleural fluid Evidence of rectal fecal impaction and possible stercoral proctitis Pessary, likely malpositioned, as described. There is evidence of bladder floor relaxation despite the pessary Dilated extrahepatic bile ducts. Most likely related to patient's age as no downstream obstructive lesion is demonstrated. However, correlation with liver function tests is recommended, with consideration for MRCP if clinically indicated Questionable slight retrococcygeal decubitus changes. Correlate with findings Other findings as noted, including evidence of prior renal cortical scarring, Arnold catheter, uterine arcuate artery calcifications Chest x-ray - 09/05/19 - Indication: Cough Technique: One view of the chest Comparison: 08/24/2019 Findings: There is increased interstitial edema. There is evidence of left perihilar airspace disease There is suggestion of trace bilateral pleural effusions. The heart size is upper limits normal. Impression: Increased interstitial edema, since prior exam 08/24/2019 Suspect left perihilar consolidation Small bilateral pleural effusions Chest x-ray - 09/07/19 - IMPRESSION: 1. Interval mild improvement in the diffusely increased interstitial markings compared to the prior exam, suggesting improved pulmonary interstitial edema. 2. Linear atelectasis at the periphery of the left mid lung. 3. Possible small left pleural effusion. MRI left foot: IMPRESSION: Evidence of acute osteomyelitis involving the hallux as described above. Cellulitis. Microbiology Date/Time Source Procedure Growth Status 09/03/19 21:00 Blood Blood Culture - Final NO GROWTH AFTER 5 DAYS Complete 09/08/19 15:45 Urine,Clean Catch Urine Culture - Final Enterococcus Faecium - Vre Nehal Albicans Complete 09/07/19 13:12 Foot Left Gram Stain - Final Complete 09/07/19 13:12 Wound Culture - Final Usual Skin Maximino Complete Laboratory Tests Test 09/12/19 06:45 09/12/19 14:45 White Blood Count 6.6 K/UL (4.8-10.8) Red Blood Count 2.94 M/UL (4.20-5.40) L Hemoglobin 8.0 G/DL (12.0-16.0) L Hematocrit 24.2 % (37.0-47.0) L Mean Corpuscular Volume 82 FL (80-99) Mean Corpuscular Hemoglobin 27.3 PG (27.0-31.0) Mean Corpuscular Hemoglobin Concent 33.1 G/DL (32.0-36.0) Red Cell Distribution Width 13.7 % (11.6-14.8) Platelet Count 402 K/UL (150-450) Mean Platelet Volume 5.6 FL (6.5-10.1) L Neutrophils (%) (Auto) 71.0 % (45.0-75.0) Lymphocytes (%) (Auto) 20.2 % (20.0-45.0) Monocytes (%) (Auto) 6.8 % (1.0-10.0) Eosinophils (%) (Auto) 1.4 % (0.0-3.0) Basophils (%) (Auto) 0.6 % (0.0-2.0) Sodium Level 143 MMOL/L (136-145) Potassium Level 3.7 MMOL/L (3.5-5.1) Chloride Level 107 MMOL/L (98-107) Carbon Dioxide Level 28 MMOL/L (21-32) Anion Gap 8 mmol/L (5-15) Blood Urea Nitrogen 9 mg/dL (7-18) Creatinine 0.9 MG/DL (0.55-1.30) Estimat Glomerular Filtration Rate mL/min (>60) Glucose Level 156 MG/DL (74-106) H Calcium Level 8.5 MG/DL (8.5-10.1) Vancomycin Level Trough 13.6 ug/mL (5.0-12.0) H Urine Color Yellow Urine Appearance Very cloudy Urine pH 8 (4.5-8.0) Urine Specific [place] 1.010 (1.005-1.035) Urine Protein 2+ (NEGATIVE) H Urine Glucose (UA) 1+ (NEGATIVE) H Urine Ketones 1+ (NEGATIVE) H Urine Blood 3+ (NEGATIVE) H Urine Nitrite Negative (NEGATIVE) Urine Bilirubin Negative (NEGATIVE) Urine Urobilinogen Normal MG/DL (0.0-1.0) Urine Leukocyte Esterase 3+ (NEGATIVE) H Urine RBC 2-4 /HPF (0 - 2) H Urine WBC Tntc /HPF (0 - 2) H Urine Squamous Epithelial Cells Moderate /LPF (NONE/OCC) H Urine Bacteria Few /HPF (NONE) Current Medications Medications (Trade) Dose Ordered Sig/Krystin Route PRN Reason Start Time Stop Time Status Last Admin Dose Admin Acetaminophen (Tylenol) 650 mg Q4H PRN ORAL Mild Pain/Temp > 100.5 09/11/19 18:45 09/24/19 18:44 Amlodipine Besylate (Norvasc) 5 mg DAILY ORAL 09/12/19 09:00 09/28/19 08:59 09/12/19 08:53 Aspirin (ASA) 81 mg DAILY ORAL 09/12/19 09:00 09/24/19 08:59 09/12/19 08:52 Carbidopa/Levodopa (Sinemet 10/100) 1 tab THREE TIMES A DAY ORAL 09/12/19 09:00 09/24/19 08:59 09/12/19 17:24 Cefepime HCl 2 gm/ Sodium Chloride 110 ml @ 220 mls/hr Q24H IVPB 09/11/19 21:00 09/18/19 20:59 09/11/19 21:00 Collagenase (Santyl) 1 applic DAILY TOPIC 09/12/19 09:00 10/06/19 16:59 09/12/19 08:58 Dextrose (Dextrose 50%) 25 ml Q30M PRN IV Hypoglycemia 09/11/19 18:45 09/23/19 19:14 09/11/19 22:07 Dextrose (Dextrose 50%) 50 ml Q30M PRN IV Hypoglycemia 09/11/19 18:45 09/23/19 19:14 Insulin Aspart (NovoLOG) BEFORE MEALS AND HS SUBQ 09/11/19 21:00 09/29/19 20:59 09/12/19 12:15 Metronidazole (Flagyl) 500 mg Q8H ORAL 09/12/19 01:00 09/14/19 08:59 09/12/19 17:23 Morphine Sulfate (Morphine Sulfate) 2 mg Q4H PRN IVP For Pain (wound and dressing) 09/11/19 19:30 09/18/19 19:29 Sodium Chloride 1,000 ml @ 30 mls/hr Q24H IV 09/11/19 18:45 10/08/19 16:44 09/12/19 19:02 Vancomycin HCl (Vanco rx to dose) 1 ea DAILY PRN MISC Per rx protocol 09/12/19 08:45 10/12/19 08:44 Vancomycin HCl 500 mg/Sodium Chloride 110 ml @ 110 mls/hr Q12HR IVPB 09/12/19 09:00 09/17/19 08:59 09/12/19 08:53 Gerardo Toledo MD Sep 12, 2019 19:26
--- NOTE | 2019-09-12 19:35 | NUR ---
HAND-OFF: Report given to ISHAAN Brush.
--- NOTE | 2019-09-12 19:44 | NUR ---
NURSE NOTES: Patient in bed, awake, alert , oriented 2. Ukrainian speaking . Bed in low and locked position. Provided safe environment. Skni is warm an dry to touch. Noted with several wound and dressings, intact and clean at the moment. Patients family is at bedside. IV site noted, iv fluid is infusing as ordered. On room air. No s/s of pain or discomfort noted. REspiration is even and unlabored. Call light is at bedside. Will continue plan of care.
[2019-09-12 20:00] VITALS: BP 105/50
[2019-09-12] MEDS: Cefepime HCl 2 GM in NS 110 ML IVPB SCH (20:25)
[2019-09-13] VITALS: BP 118/63
[2019-09-13] MEDS: metroNIDAZOLE 500mg tab ORAL SCH ×3 (00:19→17:33)
[2019-09-13 04:00] VITALS: BP 127/48
[2019-09-13] MEDS: NovoLOG Insulin Flexpen SUBQ SCH ×4 (06:19→20:51)
[2019-09-13 06:51] LABS: HEMATOCRIT 22.6 % (37.0-47.0); HEMOGLOBIN 7.5 G/DL (12.0-16.0); MEAN CORPUSCULAR VOLUME 83 FL (80-99); PLATELET COUNT 359 K/UL (150-450); RED BLOOD COUNT 2.71 M/UL (4.20-5.40); RED CELL DISTRIBUTION WIDTH 13.6 % (11.6-14.8); WHITE BLOOD COUNT 6.2 K/UL (4.8-10.8)
--- NOTE | 2019-09-13 07:19 | NUR ---
HAND-OFF: Report given to ISHAAN Barcenas.
[2019-09-13 07:25] LABS: ANION GAP 9 mmol/L (5-15); BLOOD UREA NITROGEN 13 mg/dL (7-18); CALCIUM 8.6 MG/DL (8.5-10.1); CARBON DIOXIDE 25 MMOL/L (21-32); CHLORIDE 109 MMOL/L (98-107); CREATININE 0.9 MG/DL (0.55-1.30); POTASSIUM 3.6 MMOL/L (3.5-5.1); SODIUM 143 MMOL/L (136-145)
[2019-09-13 08:00] VITALS: BP 132/42
[2019-09-13] MEDS: Aspirin Baby 81mg ORAL SCH (08:58)
[2019-09-13] MEDS: Vancomycin 500 MG in NS 110 ML IVPB SCH ×2 (08:58→21:37)
[2019-09-13] MEDS: Levodopa/Carbidopa 10/100 tab ORAL SCH ×3 (08:58→17:33)
--- NOTE | 2019-09-13 10:29 | NUR ---
NURSE NOTES: recvd pt, Pt is sleeping in bed comfortably on room air with no sign of sob or resp distress. Pt has IV site c/d/i and running NS @ 30ml/hr with no sign of infiltration. Pt is on aspiration precautions, head of bed is elevated, fall precautions also maintained, bed alarm is on. Call light within reach, will continue with plan of care
--- NOTE | 2019-09-13 10:48 | NUR ---
CASE MANAGEMENT:REVIEW SI;STREP BACTEREMIA. OSTEOMYELITIS. 98.6 93 20 132/42 94% 2L NC H/H 7.5/22.6 IS;FLAGYL PO Q8 HRS VANCOMYCIN IV Q12 HRS CEFEPIME IV Q24 HRS IVF NS @ 30 ML/HR MED SURG STATUS PLAN;ABX X6 WEEKS (DAY #21) DCP;FROM HOME
[2019-09-13 12:00] VITALS: BP 136/56
--- NOTE | 2019-09-13 12:13 | Surgery Progress Note ---
Surgery Progress Note Subjective Additional Comments doing well comfortable have not seen family in sometime no n/v/f/c. Objective Last 24 Hour Vital Signs Date Time Temp Pulse Resp B/P (MAP) Pulse Ox O2 Delivery O2 Flow Rate FiO2 09/13/19 12:00 97.3 71 18 136/56 (82) 97 09/13/19 09:00 Nasal Cannula 2.0 09/13/19 08:33 71 132/42 09/13/19 08:00 98.6 71 18 132/42 (72) 96 09/13/19 04:00 98.0 72 16 127/48 (74) 98 09/13/19 00:00 98.0 93 20 118/63 (81) 94 09/12/19 20:56 Nasal Cannula 2.0 09/12/19 20:00 99.3 86 16 105/50 (68) 96 09/12/19 16:00 97.8 74 16 138/55 (82) 94 I&O Intake and Output 09/12/19 09/13/19 19:00 07:00 Intake Total 360 ml 460 ml Output Total 700 ml Balance 360 ml -240 ml IV Total 360 ml 460 ml Output Urine Total 700 ml Dressing: dry Wound: clean Cardiovascular: RSR Respiratory: clear, decreased breath sounds Abdomen: soft, non-tender, present bowel sounds Extremities: other Laboratory Tests Test 09/12/19 14:45 09/13/19 05:07 Urine Color Yellow Urine Appearance Very cloudy Urine pH 8 (4.5-8.0) Urine Specific [place] 1.010 (1.005-1.035) Urine Protein 2+ (NEGATIVE) H Urine Glucose (UA) 1+ (NEGATIVE) H Urine Ketones 1+ (NEGATIVE) H Urine Blood 3+ (NEGATIVE) H Urine Nitrite Negative (NEGATIVE) Urine Bilirubin Negative (NEGATIVE) Urine Urobilinogen Normal MG/DL (0.0-1.0) Urine Leukocyte Esterase 3+ (NEGATIVE) H Urine RBC 2-4 /HPF (0 - 2) H Urine WBC Tntc /HPF (0 - 2) H Urine Squamous Epithelial Cells Moderate /LPF (NONE/OCC) H Urine Bacteria Few /HPF (NONE) White Blood Count 6.2 K/UL (4.8-10.8) Red Blood Count 2.71 M/UL (4.20-5.40) L Hemoglobin 7.5 G/DL (12.0-16.0) L Hematocrit 22.6 % (37.0-47.0) L Mean Corpuscular Volume 83 FL (80-99) Mean Corpuscular Hemoglobin 27.8 PG (27.0-31.0) Mean Corpuscular Hemoglobin Concent 33.4 G/DL (32.0-36.0) Red Cell Distribution Width 13.6 % (11.6-14.8) Platelet Count 359 K/UL (150-450) Mean Platelet Volume 5.4 FL (6.5-10.1) L Neutrophils (%) (Auto) % (45.0-75.0) Lymphocytes (%) (Auto) % (20.0-45.0) Monocytes (%) (Auto) % (1.0-10.0) Eosinophils (%) (Auto) % (0.0-3.0) Basophils (%) (Auto) % (0.0-2.0) Differential Total Cells Counted 100 Neutrophils % (Manual) 66 % (45-75) Lymphocytes % (Manual) 30 % (20-45) Monocytes % (Manual) 4 % (1-10) Eosinophils % (Manual) 0 % (0-3) Basophils % (Manual) 0 % (0-2) Band Neutrophils 0 % (0-8) Platelet Estimate Adequate Platelet Morphology Normal Hypochromasia 1+ Sodium Level 143 MMOL/L (136-145) Potassium Level 3.6 MMOL/L (3.5-5.1) Chloride Level 109 MMOL/L (98-107) H Carbon Dioxide Level 25 MMOL/L (21-32) Anion Gap 9 mmol/L (5-15) Blood Urea Nitrogen 13 mg/dL (7-18) Creatinine 0.9 MG/DL (0.55-1.30) Estimat Glomerular Filtration Rate mL/min (>60) Glucose Level 118 MG/DL (74-106) H Calcium Level 8.6 MG/DL (8.5-10.1) Plan Problems: (1) Decubitus skin ulcer Assessment & Plan: Base of sacral wound is 90% soft necrosis with surrounding moist erythematous margins.Wound is malodorous Periwound is erythematous without induration or elevation in skin temp.(L)8cm x (W)10.5cm. Darker skin tone noted to R and L ischium. Unstageable pressure injury noted L hip Base of wound 90% necrotic cap that is semi-detached at edges,Oozing small amt brown exudate. Remaining 10% of wound is moist and martha . Edges are erythematous and flat.Wound is malodorous. Periwound is erythematous and indurated. No elevation in skin temp. (L)2.5cm x ( W)1.9cm. Two small dark skin pigmentations R Hip that are in close proximity. NO erythema or induration noted. L foot edematous. Dorsal aspect of L foot is dusky. Necrotic ulcer L hallux /L 1st metatarsal (L)3.7cm x (W)5.2cm.Edges are moist and erythematous. Wound is malodorous. Small amt brown exudate noted. Periwound including L st metatarsal is dusky and fluctuant. L heel is fluctuant with non-blanching erythema. Stable dry eschar noted to distal /lateral R foot. Periwound without erythema, induration or fluctuance.(L)0.4cm x (W)0.3cm. Stable dry eschar noted to lateral R 5th metatarsal.(L)0.3cm x (W)0.3cm. NO erythema,induration or fluctuance periwound. R heel is boggy with non-blanching erythema. change Tx orders for Sacrum and L hip to Santyl Moist gauze daily and prn. Primary nurse is aware and orders changed. Tx.Plan: Cleanse Sacral wound with Saline. Apply Nickel thick Layer Santyl with Saline moistened Gauze. Apply Moisture Barrier Paste periwound. Cover with Optifoam drsg. Daily and prn. Cleanse L hip wound with Saline. Apply Nickel Thick layer of Santyl with Saline Moistened Gauze. Apply Moisture Barrier Paste periwound. Cover with Optifoam drsg.Daily and prn. Cleanse Wound L Hallux with Saline. Apply Nickel thick Layer Santyl with Saline moistened gauze. Cover with ABD Pad and wrap with Kerlix Daily and prn. Apply Cavilon Skin Barrier to Distal/Lateral R foot /R 5th metatarsal Daily. Apply Cavilon SKin Barrier to both heels. Cover each heel with Optifoam drsg. Change every 7 days and prn. Apply Cavilon Skin Barrier to R hip. Cover with Optifoam drsg. Change every 7 days and prn. APM/YURIY Mattress overlay. Reposition at least every 2hours or as tolerated. Off-load heels with pillow. (2) Sepsis Assessment & Plan: Leukocytosis, abnormal labs, tachycardic, per report fevers UA identified urosepsis bacteremic leukocytosis resolved improving overall anemia fevers resolved On antibiotics as per infectious disease Trend labs Okay for diet A.m. labs Wounds unlikely etiology of sepsis as they are chronic and do not look actively infected discussed with medical teams discussed with podiatry plan for abx d/c planning cont abx oral for d/c outpatient wound care follow up We will follow with recommendations thank you for let me participate in patient' s care Darrius Miller Sep 13, 2019 12:13
--- NOTE | 2019-09-13 12:15 | Cardiac Electrophysiology PN ---
Assessment/Plan Assessment/Plan 1. Elevated troponin due to renal failure with creatinine 1.7. Troponins low level between 0.5 and 0.7. No CP. ECG LBBB Echo Nl EF and no vegetations. On aspirin. Off statin in view of rhabdomyolysis. Off beta lisbeth for bradycardia 2. Hypertension. On Norvasc 5 3. LBBB and sinus dorian in 30s. Resolved off Lopressor 4. Nonsustained VT. 5. Heart failure. BNP of more than 24,000. Echocardiogram Nl EF. Could be HFpEF 6. Urinary tract infection, on IV antibiotic. 7. 4/4 Strep Bacteremia with WBC 25K. Down to 6 K. No endocarditis. ERIBERTO on 09/10/19 showed no vegetation On Iv Abx 8. Renal failure. Creatinine of 1.7. Normalized to 1.1. 9. Uncontrolled diabetes 10. Left toe diabetic ulcer. On iv Abx. Podiatry follow DW RN Subjective Subjective ERIBERTO by Dr. New 09/10/19 showed no vegetation. On iv Abx for bilateral osteomyelitis Objective Last 24 Hour Vital Signs Date Time Temp Pulse Resp B/P (MAP) Pulse Ox O2 Delivery O2 Flow Rate FiO2 09/13/19 12:00 97.3 71 18 136/56 (82) 97 09/13/19 09:00 Nasal Cannula 2.0 09/13/19 08:33 71 132/42 09/13/19 08:00 98.6 71 18 132/42 (72) 96 09/13/19 04:00 98.0 72 16 127/48 (74) 98 09/13/19 00:00 98.0 93 20 118/63 (81) 94 09/12/19 20:56 Nasal Cannula 2.0 09/12/19 20:00 99.3 86 16 105/50 (68) 96 09/12/19 16:00 97.8 74 16 138/55 (82) 94 Intake and Output 09/12/19 09/13/19 19:00 07:00 Intake Total 360 ml 460 ml Output Total 700 ml Balance 360 ml -240 ml IV Total 360 ml 460 ml Output Urine Total 700 ml Laboratory Tests Test 09/12/19 14:45 09/13/19 05:07 Urine Color Yellow Urine Appearance Very cloudy Urine pH 8 (4.5-8.0) Urine Specific [place] 1.010 (1.005-1.035) Urine Protein 2+ (NEGATIVE) H Urine Glucose (UA) 1+ (NEGATIVE) H Urine Ketones 1+ (NEGATIVE) H Urine Blood 3+ (NEGATIVE) H Urine Nitrite Negative (NEGATIVE) Urine Bilirubin Negative (NEGATIVE) Urine Urobilinogen Normal MG/DL (0.0-1.0) Urine Leukocyte Esterase 3+ (NEGATIVE) H Urine RBC 2-4 /HPF (0 - 2) H Urine WBC Tntc /HPF (0 - 2) H Urine Squamous Epithelial Cells Moderate /LPF (NONE/OCC) H Urine Bacteria Few /HPF (NONE) White Blood Count 6.2 K/UL (4.8-10.8) Red Blood Count 2.71 M/UL (4.20-5.40) L Hemoglobin 7.5 G/DL (12.0-16.0) L Hematocrit 22.6 % (37.0-47.0) L Mean Corpuscular Volume 83 FL (80-99) Mean Corpuscular Hemoglobin 27.8 PG (27.0-31.0) Mean Corpuscular Hemoglobin Concent 33.4 G/DL (32.0-36.0) Red Cell Distribution Width 13.6 % (11.6-14.8) Platelet Count 359 K/UL (150-450) Mean Platelet Volume 5.4 FL (6.5-10.1) L Neutrophils (%) (Auto) % (45.0-75.0) Lymphocytes (%) (Auto) % (20.0-45.0) Monocytes (%) (Auto) % (1.0-10.0) Eosinophils (%) (Auto) % (0.0-3.0) Basophils (%) (Auto) % (0.0-2.0) Differential Total Cells Counted 100 Neutrophils % (Manual) 66 % (45-75) Lymphocytes % (Manual) 30 % (20-45) Monocytes % (Manual) 4 % (1-10) Eosinophils % (Manual) 0 % (0-3) Basophils % (Manual) 0 % (0-2) Band Neutrophils 0 % (0-8) Platelet Estimate Adequate Platelet Morphology Normal Hypochromasia 1+ Sodium Level 143 MMOL/L (136-145) Potassium Level 3.6 MMOL/L (3.5-5.1) Chloride Level 109 MMOL/L (98-107) H Carbon Dioxide Level 25 MMOL/L (21-32) Anion Gap 9 mmol/L (5-15) Blood Urea Nitrogen 13 mg/dL (7-18) Creatinine 0.9 MG/DL (0.55-1.30) Estimat Glomerular Filtration Rate mL/min (>60) Glucose Level 118 MG/DL (74-106) H Calcium Level 8.6 MG/DL (8.5-10.1) Microbiology Date/Time Source Procedure Growth Status 09/12/19 14:45 Indwelling Cath Urine Culture - Preliminary NO GROWTH Resulted Objective HEAD AND NECK: No JVD LUNGS: Clear. CARDIOVASCULAR: Regular S1 and S2 with no gallop or murmur. ABDOMEN: Soft. EXTREMITIES: Left toe ulcer Luis Purdy MD Sep 13, 2019 12:15
[2019-09-13 16:00] VITALS: BP 117/44
--- NOTE | 2019-09-13 19:29 | NUR ---
NURSE NOTES: Pt. received from ISHAAN Arias. Pt. AAOx1, on room air, no complaints of pain and no indications of respiratory distress at this time. Buckner intact and patent, draining well. IV left arm 20g asymptomatic, intact, and patent; saline locked. IV right forearm 22g asymptomatic, intact, and patent; running NS 30cc/hr. Bed is low and locked, side rails x2, bed alarm active, and call light is in reach. Will continue to monitor.
[2019-09-13 20:00] VITALS: BP 117/57
[2019-09-13] MEDS: Cefepime HCl 2 GM in NS 110 ML IVPB SCH (20:52)
--- NOTE | 2019-09-13 20:58 | General Progress Note ---
Assessment/Plan Problem List: (1) Bacteremia due to group B Streptococcus ICD Codes: R78.81 - Bacteremia SNOMED: 137084803530 (2) Severe sepsis ICD Codes: A41.9 - Sepsis, unspecified organism; R65.20 - Severe sepsis without septic shock SNOMED: 01992757 (3) Toxic metabolic encephalopathy ICD Codes: G92 - Toxic encephalopathy SNOMED: 287148649 (4) Diabetes mellitus with hyperglycemia ICD Codes: E11.65 - Type 2 diabetes mellitus with hyperglycemia SNOMED: 39825634, 01324855 (5) OWEN (acute kidney injury) ICD Codes: N17.9 - Acute kidney failure, unspecified SNOMED: 6548972, 07484929 (6) NSTEMI (non-ST elevated myocardial infarction) ICD Codes: I21.4 - Non-ST elevation (NSTEMI) myocardial infarction SNOMED: 39808638, 986725622 (7) Urinary tract infection due to ESBL Klebsiella ICD Codes: N39.0 - Urinary tract infection, site not specified; B96.89 - Other specified bacterial agents as the cause of diseases classified elsewhere SNOMED: 730699504, 714852443991401 (8) Suspected acute on chronic CHF (9) Decubitus skin ulcer ICD Codes: L89.90 - Pressure ulcer of unspecified site, unspecified stage SNOMED: 915059961 (10) ATN (acute tubular necrosis) ICD Codes: N17.0 - Acute kidney failure with tubular necrosis SNOMED: 11100588 (11) Parkinson disease ICD Codes: G20 - Parkinson disease SNOMED: 94660568 (12) Bedbug bite ICD Codes: W57.XXXA - Bitten or stung by nonvenomous insect and other nonvenomous arthropods, initial encounter SNOMED: 040100817 (13) Hypernatremia ICD Codes: E87.0 - Hyperosmolality and hypernatremia SNOMED: 511400013 (14) Hypokalemia ICD Codes: E87.6 - Hypokalemia SNOMED: 72274168 Status: stable Assessment/Plan: 84-year-old lady from [facility] with history of hypertension, uncontrolled diabetes, and Parkinson disease, who was brought to the emergency room by family member for altered mental status and weakness. Found to have severe sepsis due to ESBL UTI, group b strep bacteremia, OWEN vs OWEN on CKD and NSTEMI. Heart failure. BNP of more than 24,000. Echocardiogram Nl EF. ?HFpEF. developed hypernatremia. Hypokalemia. Now left foot/1st toe osteomyelitis. Plan: - heparin gtt per acs protocol, DC per cards, no chest pain, stable troponin. Continue ASA, beta lisbeth (Lopressor 25), hold off on statin due to rhabdomyolysis. Decreased Lopressor to 12.5 mg bid due to low heart rate, eventually had to stop due to bradycardia on 08/29 - trend tn/ekg - cardiology consult appreciated - TTE, normal EF, no vegetations, in view of strep bacteremia in 11/08 bottles, ERIBERTO done ruled out endocarditis, -surveillance cultures negative -monitor serum sodium, replace k as needed - ID consult appreciated - vancomycin, cefepime, flagyl - day # 21 of abx, will need 6 weeks treatment for osteomyelitis MRI left foot: first metatarsal shaft, head and neck, first proximal phalange and distal phalange consistent with osteomyelitis -Follow up arterial studies left foot. Reviewed. Severe disease. Unlikely wound will heal without intervention. Will re-consult podiatry -wound culture, normal skin maximino but per ID Likely polymicrobial infection - follow urine and blood cx's. 11/08 strep bacteremia with wbc 25k--> now normal , repeat blood cultures no growth to date - c/w PD regimen - A1c 9-->insulin sliding scale ac/hs, change to resistant scale, fsbg controlled - supportive care - delirium precautions -d/w ID -discuss goal of care with family, grand daughter [phone] - lasix 40 mg BID -General surgery consult appreciated. Time spent on patient care, 37 mins, >50% on counseling and coordination of care Time of this note may not reflect the time of the clinical encounter. Subjective Date patient seen: Sep 13, 2019 ROS Limited/Unobtainable: Yes Allergies: Coded Allergies: No Known Allergies (Unverified , 10/23/13) Subjective poor historian. following up for severe sepsis, streptococcus agalactiae - group b bacteremia, endocarditis ruled out by ERIBERTO , esbl e.coli uti, sirs, leukocytosis, ? hcap/aspiration vs pulmonary edema, left foot great toe/1st toe wound infection - MRI c/w osteomyelitis, elevated sed rate. Arterial duplex lower extremity with severe disease. Objective Last 24 Hour Vital Signs Date Time Temp Pulse Resp B/P (MAP) Pulse Ox O2 Delivery O2 Flow Rate FiO2 09/13/19 16:00 98.0 85 18 117/44 (68) 97 09/13/19 12:00 97.3 71 18 136/56 (82) 97 09/13/19 09:00 Nasal Cannula 2.0 09/13/19 08:33 71 132/42 09/13/19 08:00 98.6 71 18 132/42 (72) 96 09/13/19 04:00 98.0 72 16 127/48 (74) 98 09/13/19 00:00 98.0 93 20 118/63 (81) 94 Intake and Output 09/12/19 09/13/19 19:00 07:00 Intake Total 360 ml 460 ml Output Total 700 ml Balance 360 ml -240 ml IV Total 360 ml 460 ml Output Urine Total 700 ml Laboratory Tests 09/13/19 05:07: White Blood Count 6.2, Red Blood Count 2.71L, Hemoglobin 7.5L, Hematocrit 22.6L , Mean Corpuscular Volume 83, Mean Corpuscular Hemoglobin 27.8, Mean Corpuscular Hemoglobin Concent 33.4, Red Cell Distribution Width 13.6, Platelet Count 359, Mean Platelet Volume 5.4L, Neutrophils (%) (Auto) , Lymphocytes (%) ( Auto) , Monocytes (%) (Auto) , Eosinophils (%) (Auto) , Basophils (%) (Auto) , Differential Total Cells Counted 100, Neutrophils % (Manual) 66, Lymphocytes % ( Manual) 30, Monocytes % (Manual) 4, Eosinophils % (Manual) 0, Basophils % ( Manual) 0, Band Neutrophils 0, Platelet Estimate Adequate, Platelet Morphology Normal, Hypochromasia 1+, Sodium Level 143, Potassium Level 3.6, Chloride Level 109H, Carbon Dioxide Level 25, Anion Gap 9, Blood Urea Nitrogen 13, Creatinine 0.9, Estimat Glomerular Filtration Rate , Glucose Level 118H, Calcium Level 8.6 Height (Feet): 5 Height (Inches): 3.00 Weight (Pounds): 109 Objective General Appearance: WD/WN, no apparent distress, awake, confused HEENT: normocephalic, atraumatic, PERRL, EOMI, supple, no JVD Neck: non-tender, normal alignment, supple Respiratory/Chest: chest wall non-tender, lungs clear, normal breath sounds, no respiratory distress, no accessory muscle use Cardiovascular/Chest: normal peripheral pulses, normal rate, regular rhythm, no gallop/murmur, no JVD Abdomen: non tender, soft, no organomegaly Extremities: no edema, no cyanosis Neurologic: disoriented Skin: +debuts, + left foot/1st toe ulcer/Eschar. Chago Lyons M.D. Sep 13, 2019 20:58
[2019-09-14] VITALS (8 sets, daily range): BP systolic 117–139; BP diastolic 46–88
[2019-09-14] MEDS: metroNIDAZOLE 500mg tab ORAL SCH ×3 (01:57→18:41)
--- NOTE | 2019-09-14 05:00 | NUR ---
NURSE NOTES: Wound dressings changed and pictures taken.
[2019-09-14] MEDS: NovoLOG Insulin Flexpen SUBQ SCH ×4 (06:23→20:16)
--- NOTE | 2019-09-14 07:15 | NUR ---
HAND-OFF: Report given to ISHAAN Daugherty.
--- NOTE | 2019-09-14 07:22 | NUR ---
NURSE NOTES: Patient eyes closed,opens eyes to touch and name,respirations unlabored. IV fluids infusing as ordered.Buckner catheter is in place and draining yellow uirine.breakfast at bedside,will assist patient.Bed alarm is on,call light within reach.
[2019-09-14] MEDS: Aspirin Baby 81mg ORAL SCH (08:43)
[2019-09-14] MEDS: Levodopa/Carbidopa 10/100 tab ORAL SCH ×3 (08:43→18:41)
[2019-09-14] MEDS: Vancomycin 500 MG in NS 110 ML IVPB SCH ×2 (08:54→20:07)
--- NOTE | 2019-09-14 09:43 | Surgery Progress Note ---
Surgery Progress Note Subjective Additional Comments no acute events Objective Last 24 Hour Vital Signs Date Time Temp Pulse Resp B/P (MAP) Pulse Ox O2 Delivery O2 Flow Rate FiO2 09/14/19 08:46 77 135/58 09/14/19 08:00 98.2 81 18 130/50 (76) 98 09/14/19 04:00 97.9 70 18 117/52 (73) 98 09/14/19 00:00 98.2 75 18 127/53 (77) 98 09/13/19 21:00 Room Air 09/13/19 20:00 98.7 82 17 117/57 (77) 96 09/13/19 16:00 98.0 85 18 117/44 (68) 97 09/13/19 12:00 97.3 71 18 136/56 (82) 97 I&O Intake and Output 09/13/19 09/14/19 19:00 07:00 Intake Total 360 ml 490 ml Output Total 600 ml 1000 ml Balance -240 ml -510 ml Intake Oral 360 ml IV Total 490 ml Output Urine Total 600 ml 1000 ml Dressing: other Wound: other Drains: other Cardiovascular: RSR Respiratory: decreased breath sounds Abdomen: soft, present bowel sounds Extremities: no cyanosis Plan Problems: (1) Decubitus skin ulcer Assessment & Plan: Base of sacral wound is 90% soft necrosis with surrounding moist erythematous margins.Wound is malodorous Periwound is erythematous without induration or elevation in skin temp.(L)8cm x (W)10.5cm. Darker skin tone noted to R and L ischium. Unstageable pressure injury noted L hip Base of wound 90% necrotic cap that is semi-detached at edges,Oozing small amt brown exudate. Remaining 10% of wound is moist and martha . Edges are erythematous and flat.Wound is malodorous. Periwound is erythematous and indurated. No elevation in skin temp. (L)2.5cm x ( W)1.9cm. Two small dark skin pigmentations R Hip that are in close proximity. NO erythema or induration noted. L foot edematous. Dorsal aspect of L foot is dusky. Necrotic ulcer L hallux /L 1st metatarsal (L)3.7cm x (W)5.2cm.Edges are moist and erythematous. Wound is malodorous. Small amt brown exudate noted. Periwound including L st metatarsal is dusky and fluctuant. L heel is fluctuant with non-blanching erythema. Stable dry eschar noted to distal /lateral R foot. Periwound without erythema, induration or fluctuance.(L)0.4cm x (W)0.3cm. Stable dry eschar noted to lateral R 5th metatarsal.(L)0.3cm x (W)0.3cm. NO erythema,induration or fluctuance periwound. R heel is boggy with non-blanching erythema. change Tx orders for Sacrum and L hip to Santyl Moist gauze daily and prn. Primary nurse is aware and orders changed. Tx.Plan: Cleanse Sacral wound with Saline. Apply Nickel thick Layer Santyl with Saline moistened Gauze. Apply Moisture Barrier Paste periwound. Cover with Optifoam drsg. Daily and prn. Cleanse L hip wound with Saline. Apply Nickel Thick layer of Santyl with Saline Moistened Gauze. Apply Moisture Barrier Paste periwound. Cover with Optifoam drsg.Daily and prn. Cleanse Wound L Hallux with Saline. Apply Nickel thick Layer Santyl with Saline moistened gauze. Cover with ABD Pad and wrap with Kerlix Daily and prn. Apply Cavilon Skin Barrier to Distal/Lateral R foot /R 5th metatarsal Daily. Apply Cavilon SKin Barrier to both heels. Cover each heel with Optifoam drsg. Change every 7 days and prn. Apply Cavilon Skin Barrier to R hip. Cover with Optifoam drsg. Change every 7 days and prn. APM/YURIY Mattress overlay. Reposition at least every 2hours or as tolerated. Off-load heels with pillow. (2) Sepsis Assessment & Plan: Leukocytosis, abnormal labs, tachycardic, per report fevers UA identified urosepsis bacteremic leukocytosis resolved improving overall anemia fevers resolved On antibiotics as per infectious disease Trend labs Okay for diet A.m. labs Wounds unlikely etiology of sepsis as they are chronic and do not look actively infected discussed with medical teams discussed with podiatry plan for abx d/c planning cont abx oral for d/c outpatient wound care follow up We will follow with recommendations thank you for let me participate in patient' s care Darrius Miller Sep 14, 2019 09:43
--- NOTE | 2019-09-14 11:58 | General Progress Note ---
Assessment/Plan Problem List: (1) Bacteremia due to group B Streptococcus ICD Codes: R78.81 - Bacteremia SNOMED: 292715140076 (2) Severe sepsis ICD Codes: A41.9 - Sepsis, unspecified organism; R65.20 - Severe sepsis without septic shock SNOMED: 92132090 (3) Toxic metabolic encephalopathy ICD Codes: G92 - Toxic encephalopathy SNOMED: 568221434 (4) Diabetes mellitus with hyperglycemia ICD Codes: E11.65 - Type 2 diabetes mellitus with hyperglycemia SNOMED: 41043707, 35105353 (5) OWEN (acute kidney injury) ICD Codes: N17.9 - Acute kidney failure, unspecified SNOMED: 5015877, 75685174 (6) NSTEMI (non-ST elevated myocardial infarction) ICD Codes: I21.4 - Non-ST elevation (NSTEMI) myocardial infarction SNOMED: 09906120, 029737719 (7) Urinary tract infection due to ESBL Klebsiella ICD Codes: N39.0 - Urinary tract infection, site not specified; B96.89 - Other specified bacterial agents as the cause of diseases classified elsewhere SNOMED: 067422995, 113442287476509 (8) Suspected acute on chronic CHF (9) Decubitus skin ulcer ICD Codes: L89.90 - Pressure ulcer of unspecified site, unspecified stage SNOMED: 794021962 (10) ATN (acute tubular necrosis) ICD Codes: N17.0 - Acute kidney failure with tubular necrosis SNOMED: 09329954 (11) Parkinson disease ICD Codes: G20 - Parkinson disease SNOMED: 34247039 (12) Bedbug bite ICD Codes: W57.XXXA - Bitten or stung by nonvenomous insect and other nonvenomous arthropods, initial encounter SNOMED: 615351860 (13) Hypernatremia ICD Codes: E87.0 - Hyperosmolality and hypernatremia SNOMED: 319493299 (14) Hypokalemia ICD Codes: E87.6 - Hypokalemia SNOMED: 59772785 (15) PAD (peripheral artery disease) ICD Codes: I73.9 - Peripheral vascular disease, unspecified SNOMED: 342791489 Status: stable Assessment/Plan: 84-year-old lady from [facility] with history of hypertension, uncontrolled diabetes, and Parkinson disease, who was brought to the emergency room by family member for altered mental status and weakness. Found to have severe sepsis due to ESBL UTI, group b strep bacteremia, OWEN vs OWEN on CKD and NSTEMI. Heart failure. BNP of more than 24,000. Echocardiogram Nl EF. ?HFpEF. developed hypernatremia. Hypokalemia. Now left foot/1st toe osteomyelitis. Plan: - heparin gtt per acs protocol, DC per cards, no chest pain, stable troponin. Continue ASA, beta lisbeth (Lopressor 25), hold off on statin due to rhabdomyolysis. Decreased Lopressor to 12.5 mg bid due to low heart rate, eventually had to stop due to bradycardia on 08/29 - trend tn/ekg - cardiology consult appreciated - TTE, normal EF, no vegetations, in view of strep bacteremia in 11/08 bottles, ERIBERTO done ruled out endocarditis, -surveillance cultures negative -monitor serum sodium, replace k as needed - ID consult appreciated - vancomycin, cefepime, flagyl - day # 22 of abx, will need 6 weeks treatment for osteomyelitis MRI left foot: first metatarsal shaft, head and neck, first proximal phalange and distal phalange consistent with osteomyelitis -Follow up arterial studies left foot. Reviewed. Severe disease. Unlikely wound will heal without intervention. Will re-consult podiatry -wound culture, normal skin maximino but per ID Likely polymicrobial infection - follow urine and blood cx's. 11/08 strep bacteremia with wbc 25k--> now normal , repeat blood cultures no growth to date - c/w PD regimen - A1c 9-->insulin sliding scale ac/hs, change to resistant scale, fsbg controlled - supportive care - delirium precautions -d/w ID -discuss goal of care with family, grand daughter [phone] - lasix 40 mg BID -General surgery consult appreciated. Time spent on patient care, 37 mins, >50% on counseling and coordination of care Time of this note may not reflect the time of the clinical encounter. Subjective Date patient seen: Sep 14, 2019 ROS Limited/Unobtainable: Yes Allergies: Coded Allergies: No Known Allergies (Unverified , 10/23/13) Subjective poor historian. following up for severe sepsis, streptococcus agalactiae - group b bacteremia, endocarditis ruled out by ERIBERTO , esbl e.coli uti, sirs, leukocytosis, ? hcap/aspiration vs pulmonary edema, left foot great toe/1st toe wound infection - MRI c/w osteomyelitis, elevated sed rate. Arterial duplex lower extremity with severe fem pop disease Objective Last 24 Hour Vital Signs Date Time Temp Pulse Resp B/P (MAP) Pulse Ox O2 Delivery O2 Flow Rate FiO2 09/14/19 09:00 Room Air 09/14/19 08:46 77 135/58 09/14/19 08:00 98.2 81 18 130/50 (76) 98 09/14/19 04:00 97.9 70 18 117/52 (73) 98 09/14/19 00:00 98.2 75 18 127/53 (77) 98 09/13/19 21:00 Room Air 09/13/19 20:00 98.7 82 17 117/57 (77) 96 09/13/19 16:00 98.0 85 18 117/44 (68) 97 09/13/19 12:00 97.3 71 18 136/56 (82) 97 Intake and Output 09/13/19 09/14/19 18:59 06:59 Intake Total 360 ml 490 ml Output Total 600 ml 1000 ml Balance -240 ml -510 ml Intake Oral 360 ml IV Total 490 ml Output Urine Total 600 ml 1000 ml Height (Feet): 5 Height (Inches): 3.00 Weight (Pounds): 109 Objective General Appearance: WD/WN, no apparent distress, awake, confused HEENT: normocephalic, atraumatic, PERRL, EOMI, supple, no JVD Neck: non-tender, normal alignment, supple Respiratory/Chest: chest wall non-tender, lungs clear, normal breath sounds, no respiratory distress, no accessory muscle use Cardiovascular/Chest: normal peripheral pulses, normal rate, regular rhythm, no gallop/murmur, no JVD Abdomen: non tender, soft, no organomegaly Extremities: no edema, no cyanosis Neurologic: disoriented Skin: +debuts, + left foot/1st toe ulcer/Eschar. Chago Lyons M.D. Sep 14, 2019 11:58
--- NOTE | 2019-09-14 14:27 | Infectious Diseases Prog Note ---
Assessment/Plan Assessment/Plan ASSESSMENT AND PLAN: 1. streptococcus agalactiae - group b bacteremia, ? endocarditis, esbl e.coli uti, sirs, leukocytosis, ? pna on chest x-ray - ? hcap/aspiration vs pulmonary edema, left foot great toe/1st toe wound infection - MRI c/w osteomyelitis, elevated sed rate f/u urine culture with persistent yeast - vancomycin, cefepime, flagyl - day # 22 of abx, will need 6 weeks treatment for osteomyelitis - severe pvd on arterial studies - doubtful if abx will cure osteo with this level of ischemia - ERIBERTO negative for vegetation - wound culture right foot with normal maximino but likely polymicrobial infection - monitor labs, recent chest x-ray negative - d/w Dr. Lyons, surgery and podiatry f/u - diflucan for 5 days for persistent fungal uti 2. Acute kidney injury with elevated creatinine. 3. History of diabetes. 4. weakness 5. Blood pressure treatment per primary care team and diabetes treatment per primary care team and consultants. 6. Parkinson's. 7. Dementia. 8. The patient does have also elevated troponin. Cardiology follow-up. 9. MAR was noted. 10. Case was discussed with RN. 11. No known allergies. 12. Social history is negative. 13. Family history is noncontributory. 14. Continue treatment per primary consultants. 15. Orders were noted and entered. Subjective Constitutional: Denies: fever HEENT: Denies: congestion Respiratory: Denies: shortness of breath Cardiovascular: Denies: chest pain Gastrointestinal/Abdominal: Denies: nausea, vomiting, diarrhea Genitourinary: Reports: other - + arnold Neurologic: Denies: headache Psychiatric: Denies: depression Skin: Denies: rash Hematologic: Denies: bleeding Musculoskeletal: Denies: pain Allergies: Coded Allergies: No Known Allergies (Unverified , 10/23/13) Objective Vital Signs Last 24 Hour Vital Signs Date Time Temp Pulse Resp B/P (MAP) Pulse Ox O2 Delivery O2 Flow Rate FiO2 09/14/19 12:00 98.2 70 18 118/46 (70) 95 09/14/19 09:00 Room Air 09/14/19 08:46 77 135/58 09/14/19 08:00 98.2 81 18 130/50 (76) 98 09/14/19 04:00 97.9 70 18 117/52 (73) 98 09/14/19 00:00 98.2 75 18 127/53 (77) 98 09/13/19 21:00 Room Air 09/13/19 20:00 98.7 82 17 117/57 (77) 96 09/13/19 16:00 98.0 85 18 117/44 (68) 97 Height (Feet): 5 Height (Inches): 3.00 Weight (Pounds): 109 General Appearance: no acute distress, other - more alert HEENT: normocephalic, atraumatic, anicteric, mucous membranes moist Respiratory/Chest: lungs clear, normal breath sounds, no respiratory distress, no accessory muscle use Cardiovascular: normal rate, regular rhythm, no gallop/murmur, no JVD Abdomen: normal bowel sounds, soft, non tender, no organomegaly, non distended Genitourinary: other - + arnold - urine slt cloudy Extremities: no cyanosis Skin: no rash Neurologic/Psychiatric: [employer] II-XII grossly normal, 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 Pleural space: Unremarkable. No pneumothorax. Heart: Borderline cardiomegaly, potentially exaggerated by portable technique. Mediastinum: Calcified aorta. Bones/joints: Osteopenia. Degenerative changes. IMPRESSION: Mild vascular congestion CT abdomen: Impression: Anasarca, as described, with generalized edema of subcutaneous abdominal fat, moderate-sized bilateral pleural effusions, pulmonary interstitial and airspace edema Compressive atelectasis of the lower lobes due to the pleural fluid Evidence of rectal fecal impaction and possible stercoral proctitis Pessary, likely malpositioned, as described. There is evidence of bladder floor relaxation despite the pessary Dilated extrahepatic bile ducts. Most likely related to patient's age as no downstream obstructive lesion is demonstrated. However, correlation with liver function tests is recommended, with consideration for MRCP if clinically indicated Questionable slight retrococcygeal decubitus changes. Correlate with findings Other findings as noted, including evidence of prior renal cortical scarring, Arnold catheter, uterine arcuate artery calcifications Chest x-ray - 09/05/19 - Indication: Cough Technique: One view of the chest Comparison: 08/24/2019 Findings: There is increased interstitial edema. There is evidence of left perihilar airspace disease There is suggestion of trace bilateral pleural effusions. The heart size is upper limits normal. Impression: Increased interstitial edema, since prior exam 08/24/2019 Suspect left perihilar consolidation Small bilateral pleural effusions Chest x-ray - 09/07/19 - IMPRESSION: 1. Interval mild improvement in the diffusely increased interstitial markings compared to the prior exam, suggesting improved pulmonary interstitial edema. 2. Linear atelectasis at the periphery of the left mid lung. 3. Possible small left pleural effusion. MRI left foot: IMPRESSION: Evidence of acute osteomyelitis involving the hallux as described above. Cellulitis. Microbiology Date/Time Source Procedure Growth Status 09/03/19 21:00 Blood Blood Culture - Final NO GROWTH AFTER 5 DAYS Complete 09/12/19 14:45 Indwelling Cath Urine Culture - Preliminary YEAST Resulted 09/07/19 13:12 Foot Left Gram Stain - Final Complete 09/07/19 13:12 Wound Culture - Final Usual Skin Maximino Complete Microbiology Date/Time Source Procedure Growth Status 09/12/19 14:45 Indwelling Cath Urine Culture - Preliminary YEAST Resulted Labs Test 09/12/19 06:45 09/12/19 14:45 09/13/19 05:07 White Blood Count 6.6 K/UL (4.8-10.8) 6.2 K/UL (4.8-10.8) Red Blood Count 2.94 M/UL (4.20-5.40) 2.71 M/UL (4.20-5.40) Hemoglobin 8.0 G/DL (12.0-16.0) 7.5 G/DL (12.0-16.0) Hematocrit 24.2 % (37.0-47.0) 22.6 % (37.0-47.0) Mean Corpuscular Volume 82 FL (80-99) 83 FL (80-99) Mean Corpuscular Hemoglobin 27.3 PG (27.0-31.0) 27.8 PG (27.0-31.0) Mean Corpuscular Hemoglobin Concent 33.1 G/DL (32.0-36.0) 33.4 G/DL (32.0-36.0) Red Cell Distribution Width 13.7 % (11.6-14.8) 13.6 % (11.6-14.8) Platelet Count 402 K/UL (150-450) 359 K/UL (150-450) Mean Platelet Volume 5.6 FL (6.5-10.1) 5.4 FL (6.5-10.1) Neutrophils (%) (Auto) 71.0 % (45.0-75.0) % (45.0-75.0) Lymphocytes (%) (Auto) 20.2 % (20.0-45.0) % (20.0-45.0) Monocytes (%) (Auto) 6.8 % (1.0-10.0) % (1.0-10.0) Eosinophils (%) (Auto) 1.4 % (0.0-3.0) % (0.0-3.0) Basophils (%) (Auto) 0.6 % (0.0-2.0) % (0.0-2.0) Sodium Level 143 MMOL/L (136-145) 143 MMOL/L (136-145) Potassium Level 3.7 MMOL/L (3.5-5.1) 3.6 MMOL/L (3.5-5.1) Chloride Level 107 MMOL/L (98-107) 109 MMOL/L (98-107) Carbon Dioxide Level 28 MMOL/L (21-32) 25 MMOL/L (21-32) Anion Gap 8 mmol/L (5-15) 9 mmol/L (5-15) Blood Urea Nitrogen 9 mg/dL (7-18) 13 mg/dL (7-18) Creatinine 0.9 MG/DL (0.55-1.30) 0.9 MG/DL (0.55-1.30) Estimat Glomerular Filtration Rate mL/min (>60) mL/min (>60) Glucose Level 156 MG/DL (74-106) 118 MG/DL (74-106) Calcium Level 8.5 MG/DL (8.5-10.1) 8.6 MG/DL (8.5-10.1) Vancomycin Level Trough 13.6 ug/mL (5.0-12.0) Urine Color Yellow Urine Appearance Very cloudy Urine pH 8 (4.5-8.0) Urine Specific [place] 1.010 (1.005-1.035) Urine Protein 2+ (NEGATIVE) Urine Glucose (UA) 1+ (NEGATIVE) Urine Ketones 1+ (NEGATIVE) Urine Blood 3+ (NEGATIVE) Urine Nitrite Negative (NEGATIVE) Urine Bilirubin Negative (NEGATIVE) Urine Urobilinogen Normal MG/DL (0.0-1.0) Urine Leukocyte Esterase 3+ (NEGATIVE) Urine RBC 2-4 /HPF (0 - 2) Urine WBC Tntc /HPF (0 - 2) Urine Squamous Epithelial Cells Moderate /LPF (NONE/OCC) Urine Bacteria Few /HPF (NONE) Differential Total Cells Counted 100 Neutrophils % (Manual) 66 % (45-75) Lymphocytes % (Manual) 30 % (20-45) Monocytes % (Manual) 4 % (1-10) Eosinophils % (Manual) 0 % (0-3) Basophils % (Manual) 0 % (0-2) Band Neutrophils 0 % (0-8) Platelet Estimate Adequate Platelet Morphology Normal Hypochromasia 1+ Current Medications Medications (Trade) Dose Ordered Sig/Krystin Route PRN Reason Start Time Stop Time Status Last Admin Dose Admin Acetaminophen (Tylenol) 650 mg Q4H PRN ORAL Mild Pain/Temp > 100.5 09/11/19 18:45 09/24/19 18:44 Amlodipine Besylate (Norvasc) 5 mg DAILY ORAL 09/12/19 09:00 09/28/19 08:59 09/14/19 08:46 Aspirin (ASA) 81 mg DAILY ORAL 09/12/19 09:00 09/24/19 08:59 09/14/19 08:43 Carbidopa/Levodopa (Sinemet 10/100) 1 tab THREE TIMES A DAY ORAL 09/12/19 09:00 09/24/19 08:59 09/14/19 13:36 Cefepime HCl 2 gm/ Sodium Chloride 110 ml @ 220 mls/hr Q24H IVPB 09/11/19 21:00 09/18/19 20:59 09/13/19 20:52 Collagenase (Santyl) 1 applic DAILY TOPIC 09/12/19 09:00 10/06/19 16:59 09/14/19 09:05 Dextrose (Dextrose 50%) 25 ml Q30M PRN IV Hypoglycemia 09/11/19 18:45 09/23/19 19:14 09/11/19 22:07 Dextrose (Dextrose 50%) 50 ml Q30M PRN IV Hypoglycemia 09/11/19 18:45 09/23/19 19:14 Fluconazole (Diflucan) 100 mg DAILY ORAL 09/15/19 09:00 09/22/19 08:59 Fluconazole (Diflucan) 100 mg ONCE ORAL 09/14/19 15:00 09/14/19 16:30 Insulin Aspart (NovoLOG) BEFORE MEALS AND HS SUBQ 09/11/19 21:00 09/29/19 20:59 09/13/19 20:51 Metronidazole (Flagyl) 500 mg Q8H ORAL 09/13/19 01:00 09/21/19 00:59 09/14/19 10:37 Morphine Sulfate (Morphine Sulfate) 2 mg Q4H PRN IVP For Pain (wound and dressing) 09/11/19 19:30 09/18/19 19:29 Sodium Chloride 1,000 ml @ 30 mls/hr Q24H IV 09/11/19 18:45 10/08/19 16:44 09/13/19 17:28 Vancomycin HCl (Vanco rx to dose) 1 ea DAILY PRN MISC Per rx protocol 09/12/19 08:45 10/12/19 08:44 Vancomycin HCl 500 mg/Sodium Chloride 110 ml @ 110 mls/hr Q12HR IVPB 09/12/19 09:00 09/17/19 08:59 09/14/19 08:54 Gerardo Toledo MD Sep 14, 2019 14:27
--- NOTE | 2019-09-14 14:36 | Cardiac Electrophysiology PN ---
Assessment/Plan Assessment/Plan 1. Elevated troponin due to renal failure with creatinine 1.7. Troponins low level between 0.5 and 0.7. No CP. ECG LBBB Echo Nl EF and no vegetations. On aspirin. Off statin in view of rhabdomyolysis. Off beta lisbeth for bradycardia 2. Hypertension. On Norvasc 5 3. LBBB and sinus dorian in 30s. Resolved off Lopressor 4. Nonsustained VT. 5. Heart failure. BNP of more than 24,000. Echo Nl EF. Could be HFpEF 6. Urinary tract infection, on IV antibiotic. 7. 4/4 Strep Bacteremia with WBC 25K. Down to 6 K. No endocarditis. ERIBERTO on 09/10/19 showed no vegetation On Iv Abx 8. Renal failure. Creatinine of 1.7. Normalized to 1.1. 9. Uncontrolled diabetes 10. Left toe diabetic ulcer. On iv Abx. Podiatry follow DW RN and family at bedside Subjective Subjective ERIBERTO on 09/10/19 showed no vegetation. On iv Abx for bilateral osteomyelitis. Family at beside Objective Last 24 Hour Vital Signs Date Time Temp Pulse Resp B/P (MAP) Pulse Ox O2 Delivery O2 Flow Rate FiO2 09/14/19 12:00 98.2 70 18 118/46 (70) 95 09/14/19 09:00 Room Air 09/14/19 08:46 77 135/58 09/14/19 08:00 98.2 81 18 130/50 (76) 98 09/14/19 04:00 97.9 70 18 117/52 (73) 98 09/14/19 00:00 98.2 75 18 127/53 (77) 98 09/13/19 21:00 Room Air 09/13/19 20:00 98.7 82 17 117/57 (77) 96 09/13/19 16:00 98.0 85 18 117/44 (68) 97 Intake and Output 09/13/19 09/14/19 19:00 07:00 Intake Total 360 ml 490 ml Output Total 600 ml 1000 ml Balance -240 ml -510 ml Intake Oral 360 ml IV Total 490 ml Output Urine Total 600 ml 1000 ml Microbiology Date/Time Source Procedure Growth Status 09/12/19 14:45 Indwelling Cath Urine Culture - Preliminary YEAST Resulted Objective HEAD AND NECK: No JVD LUNGS: Clear. CARDIOVASCULAR: Regular S1 and S2 with no gallop or murmur. ABDOMEN: Soft. EXTREMITIES: Left toe ulcer Luis Purdy MD Sep 14, 2019 14:36
[2019-09-14] MEDS ORDERED: Fluconazole 100mg tab ORAL SCH (15:00)
--- NOTE | 2019-09-14 18:30 | NUR ---
NURSE NOTES: Patient resting,turned and position,bed alarm on.
--- NOTE | 2019-09-14 19:31 | NUR ---
HAND-OFF: Report given to Kari Cottrell.
--- NOTE | 2019-09-14 19:38 | NUR ---
NURSE NOTES: Received patient in bed, no acute distress noted, IV site is clean dry and intact, patient is Azeri speaking only, oriented x1, confused, call light is within reach, bed is lowered, locked, alarm is on, will continue to monitor for comfort and safety.
[2019-09-14] MEDS: Cefepime HCl 2 GM in NS 110 ML IVPB SCH (20:06)
[2019-09-15] MEDS: metroNIDAZOLE 500mg tab ORAL SCH ×3 (01:18→17:19)
[2019-09-15 03:50] VITALS: BP 137/87
[2019-09-15] MEDS: NovoLOG Insulin Flexpen SUBQ SCH ×4 (05:44→20:01)
--- NOTE | 2019-09-15 07:10 | NUR ---
HAND-OFF: Report given to Willow QUIROS.
--- NOTE | 2019-09-15 07:26 | NUR ---
NURSE NOTES: Patient awake to name,respirations unlabored.Buckner catheter is in place and draining yellow urine.IV fluids infusing as ordered.Breakfast at bedside,will assist patient.Bed alarm is on.
[2019-09-15 07:27] LABS: BASOPHILS % (AUTO) 0.7 % (0.0-2.0); EOSINOPHILS % (AUTO) 3.4 % (0.0-3.0); HEMOGLOBIN 8.1 G/DL (12.0-16.0); LYMPHOCYTES % (AUTO) 30.6 % (20.0-45.0); MEAN CORPUSCULAR VOLUME 82 FL (80-99); MONOCYTES % (AUTO) 10.1 % (1.0-10.0); NEUTROPHILS % (AUTO) 55.2 % (45.0-75.0); PLATELET COUNT 383 K/UL (150-450); RED BLOOD COUNT 2.92 M/UL (4.20-5.40); WHITE BLOOD COUNT 6.5 K/UL (4.8-10.8)
[2019-09-15 07:37] LABS: ANION GAP 8 mmol/L (5-15); BLOOD UREA NITROGEN 9 mg/dL (7-18); CALCIUM 8.8 MG/DL (8.5-10.1); CARBON DIOXIDE 24 MMOL/L (21-32); CHLORIDE 109 MMOL/L (98-107); CREATININE 0.8 MG/DL (0.55-1.30); POTASSIUM 3.9 MMOL/L (3.5-5.1); SODIUM 141 MMOL/L (136-145)
[2019-09-15 08:00] VITALS: BP 121/54
[2019-09-15] MEDS: Aspirin Baby 81mg ORAL SCH (09:03)
[2019-09-15] MEDS: Fluconazole 100mg tab ORAL SCH (09:03)
[2019-09-15] MEDS: Levodopa/Carbidopa 10/100 tab ORAL SCH ×3 (09:04→18:10)
[2019-09-15] MEDS: Vancomycin 500 MG in NS 110 ML IVPB SCH ×2 (09:14→19:54)
[2019-09-15 12:00] VITALS: BP 118/56
--- NOTE | 2019-09-15 12:07 | General Progress Note ---
Assessment/Plan Problem List: (1) Bacteremia due to group B Streptococcus ICD Codes: R78.81 - Bacteremia SNOMED: 150350041526 (2) Severe sepsis ICD Codes: A41.9 - Sepsis, unspecified organism; R65.20 - Severe sepsis without septic shock SNOMED: 82479216 (3) Toxic metabolic encephalopathy ICD Codes: G92 - Toxic encephalopathy SNOMED: 937723135 (4) Diabetes mellitus with hyperglycemia ICD Codes: E11.65 - Type 2 diabetes mellitus with hyperglycemia SNOMED: 93906644, 03689735 (5) OWEN (acute kidney injury) ICD Codes: N17.9 - Acute kidney failure, unspecified SNOMED: 8029552, 22371238 (6) NSTEMI (non-ST elevated myocardial infarction) ICD Codes: I21.4 - Non-ST elevation (NSTEMI) myocardial infarction SNOMED: 94702730, 567808308 (7) Urinary tract infection due to ESBL Klebsiella ICD Codes: N39.0 - Urinary tract infection, site not specified; B96.89 - Other specified bacterial agents as the cause of diseases classified elsewhere SNOMED: 273467461, 400057584616899 (8) Suspected acute on chronic CHF (9) Decubitus skin ulcer ICD Codes: L89.90 - Pressure ulcer of unspecified site, unspecified stage SNOMED: 968192517 (10) ATN (acute tubular necrosis) ICD Codes: N17.0 - Acute kidney failure with tubular necrosis SNOMED: 92941301 (11) Parkinson disease ICD Codes: G20 - Parkinson disease SNOMED: 27244135 (12) Bedbug bite ICD Codes: W57.XXXA - Bitten or stung by nonvenomous insect and other nonvenomous arthropods, initial encounter SNOMED: 914297801 (13) Hypernatremia ICD Codes: E87.0 - Hyperosmolality and hypernatremia SNOMED: 726635445 (14) Hypokalemia ICD Codes: E87.6 - Hypokalemia SNOMED: 82861839 (15) PAD (peripheral artery disease) ICD Codes: I73.9 - Peripheral vascular disease, unspecified SNOMED: 033710146 Status: stable Assessment/Plan: 84-year-old lady from [facility] with history of hypertension, uncontrolled diabetes, and Parkinson disease, who was brought to the emergency room by family member for altered mental status and weakness. #Osteomyelitis left foot/ 1st toe #Severe PVD #Severe sepsis #Group B strep, ESBL UTI and bacteremia - vancomycin, cefepime, flagyl - day # 23 of abx, will need 6 weeks treatment for osteomyelitis - severe pvd on arterial studies - doubtful if abx will cure osteo with this level of ischemia - ERIBERTO negative for vegetation. surveillance cultures are negative - wound culture right foot with normal maximino but likely polymicrobial infection - monitor labs, recent chest x-ray negative - d/w Dr. Lyons, surgery and podiatry f/u - diflucan for 5 days for persistent fungal uti - ID consult appreciated -General surgery consult appreciated #Uncontrolled DM II - A1c 9-->insulin sliding scale ac/hs, change to resistant scale, fsbg controlled #Parkinson's disease #Dementia - c/w PD regimen - supportive care - delirium precautions #NSTEMI #HFpEF #HTN - heparin gtt per acs protocol, DC per cards, no chest pain, stable troponin. Continue ASA, beta lisbeth (Lopressor 25), hold off on statin due to rhabdomyolysis. Decreased Lopressor to 12.5 mg bid due to low heart rate, eventually had to stop due to bradycardia on 08/29 - trend tn/ekg - s/p lasix 40 mg BID -Echocardiogram Nl EF -continue amlodipine - cardiology consult appreciated #OWEN due to ATN resolved avoid nephrotoxin medications #Hypokalemia #Hypernatremia resolved Replace as needed -discussed goals of care with family at bedside 09/15/2019 Time spent on patient care, 37 mins, >50% on counseling and coordination of care Time of this note may not reflect the time of the clinical encounter. Subjective Date patient seen: Sep 15, 2019 ROS Limited/Unobtainable: Yes Allergies: Coded Allergies: No Known Allergies (Unverified , 10/23/13) Subjective poor historian. following up for severe sepsis, streptococcus agalactiae - group b bacteremia, endocarditis ruled out by ERIBERTO , esbl e.coli uti, sirs, leukocytosis, ? hcap/aspiration vs pulmonary edema, left foot great toe/1st toe wound infection - MRI c/w osteomyelitis, elevated sed rate. Arterial duplex lower extremity with severe fem pop disease. family at bedside. d/w then and explained at length what's happening. Objective Last 24 Hour Vital Signs Date Time Temp Pulse Resp B/P (MAP) Pulse Ox O2 Delivery O2 Flow Rate FiO2 09/15/19 12:00 98.4 80 18 118/56 (76) 96 09/15/19 09:03 86 120/55 09/15/19 09:00 Room Air 09/15/19 08:00 98.6 77 17 121/54 (76) 98 09/15/19 03:50 98.7 78 18 137/87 (104) 98 09/14/19 23:31 98.7 74 18 139/78 (98) 97 09/14/19 21:00 98.0 74 18 137/88 (104) 98 09/14/19 21:00 Room Air 09/14/19 20:00 98.7 74 18 137/78 (97) 94 09/14/19 16:00 98.1 59 18 131/65 (87) 98 Intake and Output 09/14/19 09/15/19 19:00 07:00 Intake Total 640 ml Output Total 600 ml 800 ml Balance 40 ml -800 ml Intake Oral 340 ml IV Total 300 ml Output Urine Total 600 ml 800 ml Laboratory Tests 09/14/19 19:55: Vancomycin Level Trough 16.7H 09/15/19 06:25: White Blood Count 6.5, Red Blood Count 2.92L, Hemoglobin 8.1L, Hematocrit 24.0L , Mean Corpuscular Volume 82, Mean Corpuscular Hemoglobin 27.6, Mean Corpuscular Hemoglobin Concent 33.6, Red Cell Distribution Width 14.0, Platelet Count 383, Mean Platelet Volume 5.4L, Neutrophils (%) (Auto) 55.2, Lymphocytes ( %) (Auto) 30.6, Monocytes (%) (Auto) 10.1H, Eosinophils (%) (Auto) 3.4H, Basophils (%) (Auto) 0.7, Sodium Level 141, Potassium Level 3.9, Chloride Level 109H, Carbon Dioxide Level 24, Anion Gap 8, Blood Urea Nitrogen 9, Creatinine 0.8, Estimat Glomerular Filtration Rate , Glucose Level 117H, Calcium Level 8.8 Height (Feet): 5 Height (Inches): 3.00 Weight (Pounds): 109 Objective General Appearance: WD/WN, no apparent distress, awake, confused HEENT: normocephalic, atraumatic, PERRL, EOMI, supple, no JVD Neck: non-tender, normal alignment, supple Respiratory/Chest: chest wall non-tender, lungs clear, normal breath sounds, no respiratory distress, no accessory muscle use Cardiovascular/Chest: normal peripheral pulses, normal rate, regular rhythm, no gallop/murmur, no JVD Abdomen: non tender, soft, no organomegaly Extremities: no edema, no cyanosis Neurologic: disoriented Skin: +debuts, + left foot/1st toe ulcer/Eschar. Chago Lyons M.D. Sep 15, 2019 12:07
[2019-09-15 16:00] VITALS: BP 132/63
--- NOTE | 2019-09-15 18:30 | NUR ---
NURSE NOTES: Patient resting,respirations unlabored.Bed alarm is on.
--- NOTE | 2019-09-15 19:20 | NUR ---
HAND-OFF: Report given to Kari QUIROS.
--- NOTE | 2019-09-15 19:23 | NUR ---
NURSE NOTES: Received patient in bed, asleep, confused, disoriented, no acute distress noted, IV site is clean dry and intact. Call light is within reach, bed is lowered, locked, alarm is on, will continue to monitor for comfort and safety.
[2019-09-15] MEDS: Cefepime HCl 2 GM in NS 110 ML IVPB SCH (19:53)
[2019-09-15 20:00] VITALS: BP 127/87
[2019-09-16] VITALS: BP 119/79
[2019-09-16] MEDS: metroNIDAZOLE 500mg tab ORAL SCH ×3 (01:00→17:11)
[2019-09-16 04:00] VITALS: BP 119/74
[2019-09-16] MEDS: NovoLOG Insulin Flexpen SUBQ SCH ×4 (05:19→20:39)
--- NOTE | 2019-09-16 07:17 | NUR ---
HAND-OFF: Report given to Mary QUIROS.
--- NOTE | 2019-09-16 07:18 | NUR ---
NURSE NOTES: Received patient in bed asleep. No SOB or acute distress. IV line intact and patent. FC intact, draining yellow colored urine. HOB elevated. Bed locked in lowest position. Call light within reach. Will continue plan of care.
[2019-09-16 08:00] VITALS: BP 116/46
[2019-09-16] MEDS: Aspirin Baby 81mg ORAL SCH (09:23)
[2019-09-16] MEDS: Vancomycin 500 MG in NS 110 ML IVPB SCH ×2 (09:23→20:58)
[2019-09-16] MEDS: Fluconazole 100mg tab ORAL SCH (09:24)
[2019-09-16] MEDS: Levodopa/Carbidopa 10/100 tab ORAL SCH ×3 (09:24→17:10)
--- NOTE | 2019-09-16 09:45 | General Progress Note ---
Assessment/Plan Problem List: (1) Bacteremia due to group B Streptococcus ICD Codes: R78.81 - Bacteremia SNOMED: 964193209725 (2) Severe sepsis ICD Codes: A41.9 - Sepsis, unspecified organism; R65.20 - Severe sepsis without septic shock SNOMED: 16027099 (3) Toxic metabolic encephalopathy ICD Codes: G92 - Toxic encephalopathy SNOMED: 686262031 (4) Diabetes mellitus with hyperglycemia ICD Codes: E11.65 - Type 2 diabetes mellitus with hyperglycemia SNOMED: 62422215, 55371730 (5) OWEN (acute kidney injury) ICD Codes: N17.9 - Acute kidney failure, unspecified SNOMED: 8793694, 84162521 (6) NSTEMI (non-ST elevated myocardial infarction) ICD Codes: I21.4 - Non-ST elevation (NSTEMI) myocardial infarction SNOMED: 38227743, 471145178 (7) Urinary tract infection due to ESBL Klebsiella ICD Codes: N39.0 - Urinary tract infection, site not specified; B96.89 - Other specified bacterial agents as the cause of diseases classified elsewhere SNOMED: 564579080, 875782531869491 (8) Suspected acute on chronic CHF (9) Decubitus skin ulcer ICD Codes: L89.90 - Pressure ulcer of unspecified site, unspecified stage SNOMED: 374539878 (10) ATN (acute tubular necrosis) ICD Codes: N17.0 - Acute kidney failure with tubular necrosis SNOMED: 04064807 (11) Parkinson disease ICD Codes: G20 - Parkinson disease SNOMED: 08401825 (12) Bedbug bite ICD Codes: W57.XXXA - Bitten or stung by nonvenomous insect and other nonvenomous arthropods, initial encounter SNOMED: 698218768 (13) Hypernatremia ICD Codes: E87.0 - Hyperosmolality and hypernatremia SNOMED: 097621327 (14) Hypokalemia ICD Codes: E87.6 - Hypokalemia SNOMED: 93669790 (15) PAD (peripheral artery disease) ICD Codes: I73.9 - Peripheral vascular disease, unspecified SNOMED: 297920074 Status: stable Assessment/Plan: 84-year-old lady from [facility] with history of hypertension, uncontrolled diabetes, and Parkinson disease, who was brought to the emergency room by family member for altered mental status and weakness. #Osteomyelitis left foot/ 1st toe #Severe PVD #Severe sepsis #Group B strep, ESBL UTI and bacteremia - vancomycin, cefepime, flagyl - day # 24 of abx, will need 6 weeks treatment for osteomyelitis - severe pvd on arterial studies - doubtful if abx will cure osteo with this level of ischemia - ERIBERTO negative for vegetation. surveillance cultures are negative - wound culture right foot with normal maximino but likely polymicrobial infection - monitor labs, recent chest x-ray negative - d/w Dr. Lyons, surgery and podiatry f/u - diflucan for 5 days for persistent fungal uti - ID consult appreciated -General surgery consult appreciated #Uncontrolled DM II - A1c 9-->insulin sliding scale ac/hs, change to resistant scale, fsbg controlled #Parkinson's disease #Dementia - c/w PD regimen - supportive care - delirium precautions #NSTEMI #HFpEF #HTN - heparin gtt per acs protocol, DC per cards, no chest pain, stable troponin. Continue ASA, beta lisbeth (Lopressor 25), hold off on statin due to rhabdomyolysis. Decreased Lopressor to 12.5 mg bid due to low heart rate, eventually had to stop due to bradycardia on 08/29 - trend tn/ekg - s/p lasix 40 mg BID -Echocardiogram Nl EF -continue amlodipine - cardiology consult appreciated #OWEN due to ATN resolved avoid nephrotoxin medications #Hypokalemia #Hypernatremia resolved Replace as needed -discussed goals of care with family at bedside 09/15/2019 Time spent on patient care, 37 mins, >50% on counseling and coordination of care Time of this note may not reflect the time of the clinical encounter. Subjective Date patient seen: Sep 16, 2019 Allergies: Coded Allergies: No Known Allergies (Unverified , 10/23/13) Subjective poor historian. following up for severe sepsis, streptococcus agalactiae - group b bacteremia, endocarditis ruled out by ERIBERTO , esbl e.coli uti, sirs, leukocytosis, ? hcap/aspiration vs pulmonary edema, left foot great toe/1st toe wound infection - MRI c/w osteomyelitis, elevated sed rate. Arterial duplex lower extremity with severe fem pop disease. family at bedside. d/w with them and explained at length Objective Last 24 Hour Vital Signs Date Time Temp Pulse Resp B/P (MAP) Pulse Ox O2 Delivery O2 Flow Rate FiO2 09/16/19 09:00 70 116/46 09/16/19 08:00 97.9 70 16 116/46 (69) 97 09/16/19 04:00 97.4 74 18 119/74 (89) 98 09/16/19 00:00 98.0 68 18 119/79 (92) 98 09/15/19 21:06 Room Air 09/15/19 20:00 97.8 87 18 127/87 (100) 98 09/15/19 16:00 98.9 74 18 132/63 (86) 98 09/15/19 12:00 98.4 80 18 118/56 (76) 96 Intake and Output 09/15/19 09/16/19 19:00 07:00 Intake Total 810 ml Output Total 500 ml 900 ml Balance 310 ml -900 ml Intake Oral 480 ml IV Total 330 ml Output Urine Total 500 ml 900 ml Height (Feet): 5 Height (Inches): 3.00 Weight (Pounds): 109 Objective General Appearance: WD/WN, no apparent distress, awake, confused HEENT: normocephalic, atraumatic, PERRL, EOMI, supple, no JVD Neck: non-tender, normal alignment, supple Respiratory/Chest: chest wall non-tender, lungs clear, normal breath sounds, no respiratory distress, no accessory muscle use Cardiovascular/Chest: normal peripheral pulses, normal rate, regular rhythm, no gallop/murmur, no JVD Abdomen: non tender, soft, no organomegaly Extremities: no edema, no cyanosis Neurologic: disoriented Skin: +debuts, + left foot/1st toe ulcer/Eschar. Chago Lyons M.D. Sep 16, 2019 09:45
--- NOTE | 2019-09-16 11:08 | NUR ---
RD ASSESSMENT & RECOMMENDATIONS SEE CARE ACTIVITY FOR COMPLETE ASSESSMENT DAILY ESTIMATED NEEDS: Needs based on Wounds, DM 49kg 30-35 kcals/kg 5350-6141 total kcals 1.25-2 g protein/kg 61-98 g total protein 25-30ml/kcal mL/kg 8789-1658 total fluid mLs NUTRITION DIAGNOSIS: Increased kcal and pro needs r/t wound healing as evidenced by pt w/ multiple areas of skin breakdown including unstageable L hip wounds x2, refer to WC eval for full assessment. CURRENT DIET:CCHO MED, pureed moist w/ NTL PO DIET RECOMMENDATIONS: Liberalized REGULAR / texture per CUSTOMER TRAINER ADDITIONAL RECOMMENDATIONS: 1) Glucerna TID w/ meals added; Encourage HD snack intake 2) Hypoglycemic episode, rec low rate D5 w/ continued fair to poor intake 3) Wound care: if tolerated ANTONIA BID + Vit C 250mg BID + MVI w/ min q daily 4) Calibrated bed scale wts daily, EMR appear stable 5) Consider appetite stimulant w/ continued poor and variable PO 6) Replete lytes as needed
--- NOTE | 2019-09-16 11:43 | Cardiac Electrophysiology PN ---
Assessment/Plan Assessment/Plan 1. Elevated troponin due to renal failure with creatinine 1.7. Troponins low level between 0.5 and 0.7. No CP. ECG LBBB Echo Nl EF and no vegetations. On aspirin. Off statin in view of rhabdomyolysis. Off beta lisbeth for bradycardia 2. Hypertension. On Norvasc 5 3. LBBB and sinus dorian in 30s. Resolved off Lopressor 4. Nonsustained VT. 5. Heart failure. BNP of more than 24,000. Echo Nl EF. Could be HFpEF 6. Urinary tract infection, on IV antibiotic. 7. 4/4 Strep Bacteremia with WBC 25K. Down to 6 K. No endocarditis. ERIBERTO on 09/10/19 showed no vegetation On Iv Abx 8. Renal failure. Creatinine of 1.7. Normalized to 1.1. 9. Uncontrolled diabetes 10. Left toe diabetic ulcer. On iv Abx. Podiatry following DW RN and family at bedside Subjective Subjective On iv Abx for bilateral foot osteomyelitis. Family at beside. Pleasantly confused Objective Last 24 Hour Vital Signs Date Time Temp Pulse Resp B/P (MAP) Pulse Ox O2 Delivery O2 Flow Rate FiO2 09/16/19 09:00 Room Air 09/16/19 09:00 70 116/46 09/16/19 08:00 97.9 70 16 116/46 (69) 97 09/16/19 04:00 97.4 74 18 119/74 (89) 98 09/16/19 00:00 98.0 68 18 119/79 (92) 98 09/15/19 21:06 Room Air 09/15/19 20:00 97.8 87 18 127/87 (100) 98 09/15/19 16:00 98.9 74 18 132/63 (86) 98 09/15/19 12:00 98.4 80 18 118/56 (76) 96 Intake and Output 09/15/19 09/16/19 19:00 07:00 Intake Total 810 ml Output Total 500 ml 900 ml Balance 310 ml -900 ml Intake Oral 480 ml IV Total 330 ml Output Urine Total 500 ml 900 ml Objective HEAD AND NECK: No JVD LUNGS: Clear. CARDIOVASCULAR: Regular S1 and S2 with no gallop or murmur. ABDOMEN: Soft. EXTREMITIES: Left toe ulcer covered with dressing Luis Purdy MD Sep 16, 2019 11:43
[2019-09-16 12:00] VITALS: BP 128/62
--- NOTE | 2019-09-16 14:22 | NUR ---
CASE MANAGEMENT:REVIEW 09/14/2019 SI;STREP B BACTEREMIA. SEVERE SEPSIS. TOXIC METABOLIC ENCEPHALOPATHY. 98.2 59 18 135/58 94% ON RA IS;DIFLUCAN PO QD VANCOMYCIN IV Q24 HRS ASA PO QD MED SURG STATUS CASE MANAGEMENT:REVIEW 09/15/2019 SI;STREP B BACTEREMIA. SEVERE SEPSIS. TOXIC METABOLIC ENCEPHALOPATHY. 98.6 87 18 132/63 96% ON RA H/H 8.1/24.0 IS;DIFLUCAN PO QD FLAGYL PO Q8 HRS VANCOMYCIN IV Q24 HRS ASA PO QD MED SURG STATUS CASE MANAGEMENT:REVIEW 09/16/2019 SI;STREP B BACTEREMIA. SEVERE SEPSIS. TOXIC METABOLIC ENCEPHALOPATHY 98.5 74 16 116/46 93% ON RA IS;DIFLUCAN PO QD FLAGYL PO Q8 HRS VANCOMYCIN IV Q24 HRS ASA PO QD MED SURG STATUS DCP;FROM HOME
[2019-09-16 16:00] VITALS: BP 125/51
--- NOTE | 2019-09-16 16:25 | Surgery Progress Note ---
Surgery Progress Note Subjective Additional Comments resting comfortable moves without complaints. dressings changed stable Objective Last 24 Hour Vital Signs Date Time Temp Pulse Resp B/P (MAP) Pulse Ox O2 Delivery O2 Flow Rate FiO2 09/16/19 12:00 98.5 68 17 128/62 (84) 93 09/16/19 09:00 Room Air 09/16/19 09:00 70 116/46 09/16/19 08:00 97.9 70 16 116/46 (69) 97 09/16/19 04:00 97.4 74 18 119/74 (89) 98 09/16/19 00:00 98.0 68 18 119/79 (92) 98 09/15/19 21:06 Room Air 09/15/19 20:00 97.8 87 18 127/87 (100) 98 I&O Intake and Output 09/15/19 09/16/19 19:00 07:00 Intake Total 810 ml Output Total 500 ml 900 ml Balance 310 ml -900 ml Intake Oral 480 ml IV Total 330 ml Output Urine Total 500 ml 900 ml Dressing: dry Wound: clean Cardiovascular: RSR Respiratory: clear Abdomen: soft, non-tender, present bowel sounds, non-distended Extremities: other Plan Problems: (1) Decubitus skin ulcer Assessment & Plan: Base of sacral wound is 90% soft necrosis with surrounding moist erythematous margins.Wound is malodorous Periwound is erythematous without induration or elevation in skin temp.(L)8cm x (W)10.5cm. Darker skin tone noted to R and L ischium. Unstageable pressure injury noted L hip Base of wound 90% necrotic cap that is semi-detached at edges,Oozing small amt brown exudate. Remaining 10% of wound is moist and martha . Edges are erythematous and flat.Wound is malodorous. Periwound is erythematous and indurated. No elevation in skin temp. (L)2.5cm x ( W)1.9cm. Two small dark skin pigmentations R Hip that are in close proximity. NO erythema or induration noted. L foot edematous. Dorsal aspect of L foot is dusky. Necrotic ulcer L hallux /L 1st metatarsal (L)3.7cm x (W)5.2cm.Edges are moist and erythematous. Wound is malodorous. Small amt brown exudate noted. Periwound including L st metatarsal is dusky and fluctuant. L heel is fluctuant with non-blanching erythema. Stable dry eschar noted to distal /lateral R foot. Periwound without erythema, induration or fluctuance.(L)0.4cm x (W)0.3cm. Stable dry eschar noted to lateral R 5th metatarsal.(L)0.3cm x (W)0.3cm. NO erythema,induration or fluctuance periwound. R heel is boggy with non-blanching erythema. change Tx orders for Sacrum and L hip to Santyl Moist gauze daily and prn. Primary nurse is aware and orders changed. left foot improving no drainage now Tx.Plan: Cleanse Sacral wound with Saline. Apply Nickel thick Layer Santyl with Saline moistened Gauze. Apply Moisture Barrier Paste periwound. Cover with Optifoam drsg. Daily and prn. Cleanse L hip wound with Saline. Apply Nickel Thick layer of Santyl with Saline Moistened Gauze. Apply Moisture Barrier Paste periwound. Cover with Optifoam drsg.Daily and prn. Cleanse Wound L Hallux with Saline. Apply Nickel thick Layer Santyl with Saline moistened gauze. Cover with ABD Pad and wrap with Kerlix Daily and prn. Apply Cavilon Skin Barrier to Distal/Lateral R foot /R 5th metatarsal Daily. Apply Cavilon SKin Barrier to both heels. Cover each heel with Optifoam drsg. Change every 7 days and prn. Apply Cavilon Skin Barrier to R hip. Cover with Optifoam drsg. Change every 7 days and prn. APM/YURIY Mattress overlay. Reposition at least every 2hours or as tolerated. Off-load heels with pillow. (2) Sepsis Assessment & Plan: Leukocytosis, abnormal labs, tachycardic, per report fevers UA identified urosepsis bacteremic leukocytosis resolved improving overall anemia fevers resolved On antibiotics as per infectious disease Trend labs Okay for diet A.m. labs Wounds unlikely etiology of sepsis as they are chronic and do not look actively infected discussed with medical teams discussed with podiatry plan for abx d/c planning cont abx oral for d/c outpatient wound care follow up We will follow with recommendations thank you for let me participate in patient' s care Additional Comments d/c planning Darrius Miller Sep 16, 2019 16:25
--- NOTE | 2019-09-16 17:31 | Infectious Diseases Prog Note ---
Assessment/Plan Assessment/Plan ASSESSMENT AND PLAN: 1. streptococcus agalactiae - group b bacteremia, ? endocarditis, esbl e.coli uti, sirs, leukocytosis, ? pna on chest x-ray - ? hcap/aspiration vs pulmonary edema, left foot great toe/1st toe wound infection - MRI c/w osteomyelitis, elevated sed rate f/u urine culture with persistent yeast - vancomycin, cefepime, flagyl - day # 24 of abx, will need 6 weeks treatment for osteomyelitis - severe pvd on arterial studies - ? if abx will cure osteo with this level of ischemia - ERIBERTO negative for vegetation - wound culture right foot with normal maximino but likely polymicrobial infection - monitor labs, recent chest x-ray negative - surgery note reviewed - left foot improving - diflucan for 3 days for persistent fungal uti 2. Acute kidney injury with elevated creatinine. 3. History of diabetes. 4. weakness 5. Blood pressure treatment per primary care team and diabetes treatment per primary care team and consultants. 6. Parkinson's. 7. Dementia. 8. The patient does have also elevated troponin. Cardiology follow-up. 9. MAR was noted. 10. Case was discussed with RN. 11. No known allergies. 12. Social history is negative. 13. Family history is noncontributory. 14. Continue treatment per primary consultants. 15. Orders were noted and entered. Subjective Constitutional: Denies: fever HEENT: Denies: congestion Respiratory: Denies: shortness of breath Cardiovascular: Denies: chest pain Gastrointestinal/Abdominal: Denies: nausea, vomiting, diarrhea Genitourinary: Reports: other - + arnold Neurologic: Denies: headache Psychiatric: Denies: depression Skin: Denies: rash Hematologic: Denies: bleeding Musculoskeletal: Denies: pain Allergies: Coded Allergies: No Known Allergies (Unverified , 10/23/13) Objective Vital Signs Last 24 Hour Vital Signs Date Time Temp Pulse Resp B/P (MAP) Pulse Ox O2 Delivery O2 Flow Rate FiO2 09/16/19 16:00 98.6 64 17 125/51 (75) 98 09/16/19 12:00 98.5 68 17 128/62 (84) 93 09/16/19 09:00 Room Air 09/16/19 09:00 70 116/46 09/16/19 08:00 97.9 70 16 116/46 (69) 97 09/16/19 04:00 97.4 74 18 119/74 (89) 98 09/16/19 00:00 98.0 68 18 119/79 (92) 98 09/15/19 21:06 Room Air 09/15/19 20:00 97.8 87 18 127/87 (100) 98 Height (Feet): 5 Height (Inches): 3.00 Weight (Pounds): 109 General Appearance: no acute distress HEENT: normocephalic, atraumatic, anicteric, mucous membranes moist Respiratory/Chest: lungs clear, normal breath sounds, no respiratory distress, no accessory muscle use Cardiovascular: normal rate, regular rhythm, no gallop/murmur, no JVD Abdomen: normal bowel sounds, soft, non tender, no organomegaly, non distended Genitourinary: other - + arnold - urine slt cloudy Extremities: other - left foot covered Skin: no rash Neurologic/Psychiatric: sports recruiter II-XII grossly normal, no motor/sensory deficits, abnormal gait, alert, oriented x 3 Lymphatic: no neck adenopathy Musculoskeletal: no effusion Objective Chest x-ray - FINDINGS: Lungs: Mild vascular congestion. Pleural space: Unremarkable. No pneumothorax. Heart: Borderline cardiomegaly, potentially exaggerated by portable technique. Mediastinum: Calcified aorta. Bones/joints: Osteopenia. Degenerative changes. IMPRESSION: Mild vascular congestion CT abdomen: Impression: Anasarca, as described, with generalized edema of subcutaneous abdominal fat, moderate-sized bilateral pleural effusions, pulmonary interstitial and airspace edema Compressive atelectasis of the lower lobes due to the pleural fluid Evidence of rectal fecal impaction and possible stercoral proctitis Pessary, likely malpositioned, as described. There is evidence of bladder floor relaxation despite the pessary Dilated extrahepatic bile ducts. Most likely related to patient's age as no downstream obstructive lesion is demonstrated. However, correlation with liver function tests is recommended, with consideration for MRCP if clinically indicated Questionable slight retrococcygeal decubitus changes. Correlate with findings Other findings as noted, including evidence of prior renal cortical scarring, Arnold catheter, uterine arcuate artery calcifications Chest x-ray - 09/05/19 - Indication: Cough Technique: One view of the chest Comparison: 08/24/2019 Findings: There is increased interstitial edema. There is evidence of left perihilar airspace disease There is suggestion of trace bilateral pleural effusions. The heart size is upper limits normal. Impression: Increased interstitial edema, since prior exam 08/24/2019 Suspect left perihilar consolidation Small bilateral pleural effusions Chest x-ray - 09/07/19 - IMPRESSION: 1. Interval mild improvement in the diffusely increased interstitial markings compared to the prior exam, suggesting improved pulmonary interstitial edema. 2. Linear atelectasis at the periphery of the left mid lung. 3. Possible small left pleural effusion. MRI left foot: IMPRESSION: Evidence of acute osteomyelitis involving the hallux as described above. Cellulitis. Microbiology Date/Time Source Procedure Growth Status 09/03/19 21:00 Blood Blood Culture - Final NO GROWTH AFTER 5 DAYS Complete 09/12/19 14:45 Indwelling Cath Urine Culture - Final Nehal Albicans Complete 09/07/19 13:12 Foot Left Gram Stain - Final Complete 09/07/19 13:12 Wound Culture - Final Usual Skin Maximino Complete Labs Test 09/14/19 19:55 09/15/19 06:25 Vancomycin Level Trough 16.7 ug/mL (5.0-12.0) White Blood Count 6.5 K/UL (4.8-10.8) Red Blood Count 2.92 M/UL (4.20-5.40) Hemoglobin 8.1 G/DL (12.0-16.0) Hematocrit 24.0 % (37.0-47.0) Mean Corpuscular Volume 82 FL (80-99) Mean Corpuscular Hemoglobin 27.6 PG (27.0-31.0) Mean Corpuscular Hemoglobin Concent 33.6 G/DL (32.0-36.0) Red Cell Distribution Width 14.0 % (11.6-14.8) Platelet Count 383 K/UL (150-450) Mean Platelet Volume 5.4 FL (6.5-10.1) Neutrophils (%) (Auto) 55.2 % (45.0-75.0) Lymphocytes (%) (Auto) 30.6 % (20.0-45.0) Monocytes (%) (Auto) 10.1 % (1.0-10.0) Eosinophils (%) (Auto) 3.4 % (0.0-3.0) Basophils (%) (Auto) 0.7 % (0.0-2.0) Sodium Level 141 MMOL/L (136-145) Potassium Level 3.9 MMOL/L (3.5-5.1) Chloride Level 109 MMOL/L (98-107) Carbon Dioxide Level 24 MMOL/L (21-32) Anion Gap 8 mmol/L (5-15) Blood Urea Nitrogen 9 mg/dL (7-18) Creatinine 0.8 MG/DL (0.55-1.30) Estimat Glomerular Filtration Rate mL/min (>60) Glucose Level 117 MG/DL (74-106) Calcium Level 8.8 MG/DL (8.5-10.1) Current Medications Medications (Trade) Dose Ordered Sig/Krystin Route PRN Reason Start Time Stop Time Status Last Admin Dose Admin Acetaminophen (Tylenol) 650 mg Q4H PRN ORAL Mild Pain/Temp > 100.5 09/11/19 18:45 09/24/19 18:44 Amlodipine Besylate (Norvasc) 5 mg DAILY ORAL 09/12/19 09:00 09/28/19 08:59 09/15/19 09:03 Aspirin (ASA) 81 mg DAILY ORAL 09/12/19 09:00 09/24/19 08:59 09/16/19 09:23 Carbidopa/Levodopa (Sinemet 10) 1 tab THREE TIMES A DAY ORAL 09/12/19 09:00 09/24/19 08:59 09/16/19 17:10 Cefepime HCl 2 gm/ Sodium Chloride 110 ml @ 220 mls/hr Q24H IVPB 09/11/19 21:00 09/18/19 20:59 09/15/19 19:53 Collagenase (Santyl) 1 applic DAILY TOPIC 09/12/19 09:00 10/06/19 16:59 09/16/19 09:41 Dextrose (Dextrose 50%) 25 ml Q30M PRN IV Hypoglycemia 09/11/19 18:45 09/23/19 19:14 09/11/19 22:07 Dextrose (Dextrose 50%) 50 ml Q30M PRN IV Hypoglycemia 09/11/19 18:45 09/23/19 19:14 Fluconazole (Diflucan) 100 mg DAILY ORAL 09/15/19 09:00 09/22/19 08:59 09/16/19 09:24 Insulin Aspart (NovoLOG) BEFORE MEALS AND HS SUBQ 09/11/19 21:00 09/29/19 20:59 09/16/19 16:45 Metronidazole (Flagyl) 500 mg Q8H ORAL 09/13/19 01:00 09/21/19 00:59 09/16/19 17:11 Morphine Sulfate (Morphine Sulfate) 2 mg Q4H PRN IVP For Pain (wound and dressing) 09/11/19 19:30 09/18/19 19:29 Sodium Chloride 1,000 ml @ 30 mls/hr Q24H IV 09/11/19 18:45 10/08/19 16:44 09/15/19 18:10 Vancomycin HCl (Vanco rx to dose) 1 ea DAILY PRN MISC Per rx protocol 09/12/19 08:45 10/12/19 08:44 Vancomycin HCl 500 mg/Sodium Chloride 110 ml @ 110 mls/hr Q12HR IVPB 09/12/19 09:00 09/21/19 08:59 09/16/19 09:23 Gerardo Toledo MD Sep 16, 2019 17:31
[2019-09-16 19:27] LABS: HEMATOCRIT 24.3 % (37.0-47.0); HEMOGLOBIN 7.3 G/DL (12.0-16.0); MEAN CORPUSCULAR VOLUME 88 FL (80-99); PLATELET COUNT 425 K/UL (150-450); RED BLOOD COUNT 2.77 M/UL (4.20-5.40); RED CELL DISTRIBUTION WIDTH 15.1 % (11.6-14.8); WHITE BLOOD COUNT 7.9 K/UL (4.8-10.8)
--- NOTE | 2019-09-16 19:28 | NUR ---
HAND-OFF: Report given to
--- NOTE | 2019-09-16 19:49 | NUR ---
NURSE NOTES: Received patient awake, follows simple command, resting in bed, comfortable.
[2019-09-16] MEDS: Cefepime HCl 2 GM in NS 110 ML IVPB SCH (20:07)
[2019-09-16 20:31] VITALS: BP 124/54
[2019-09-17] VITALS: BP 124/63
[2019-09-17] MEDS: metroNIDAZOLE 500mg tab ORAL SCH ×3 (01:03→17:00)
[2019-09-17 04:00] VITALS: BP 134/63
[2019-09-17] MEDS: NovoLOG Insulin Flexpen SUBQ SCH ×4 (05:53→21:00)
--- NOTE | 2019-09-17 07:09 | NUR ---
HAND-OFF: Report given to Dami Barrientos RN.
[2019-09-17 07:10] LABS: ALANINE AMINOTRANSFERASE 8 U/L (12-78); ALBUMIN/GLOBULIN RATIO 0.4 (1.0-2.7); ALKALINE PHOSPHATASE 69 U/L (46-116); ANION GAP 10 mmol/L (5-15); ASPARTATE AMINO TRANSFERASE 19 U/L (15-37); BILIRUBIN,TOTAL 0.4 MG/DL (0.2-1.0); BLOOD UREA NITROGEN 10 mg/dL (7-18); CALCIUM 8.6 MG/DL (8.5-10.1); CARBON DIOXIDE 23 MMOL/L (21-32); CHLORIDE 109 MMOL/L (98-107); CREATININE 0.9 MG/DL (0.55-1.30); SODIUM 142 MMOL/L (136-145)
[2019-09-17 08:00] VITALS: BP 124/66
--- NOTE | 2019-09-17 08:18 | NUR ---
NURSE NOTES:WOUND CARE NOTES:L hip pressure injury resolving . Loose necrotic cap with surrounding dry pink epithelial borders. No odor or exudate noted .(L)2.7cm x (W)1.2cm. Periwound with no evidence of skin breakdown. Unstageable pressure injury sacrum Base of wound has 90% slough ,10% pink granulation. Edges are dark with surrounding non-blanching erythema without induration or elevation in skin temp. Small amt brown exudate that is malodorous noted.(L)8.5cm x (W)10cm. L foot including Metatarsals are dusky. Wound L hallux is 100% necrotic and soft. with erythematous margins.Wound is malodorous(L)7cm x(W) 4.5cm..Both heels are boggy but blanchable. No new skin concerns noted. All wound Tx. are effective and continued as ordered. All wound prevention protocols continued as care-planned.
[2019-09-17] MEDS: Vancomycin 500 MG in NS 110 ML IVPB SCH ×2 (09:25→22:14)
[2019-09-17] MEDS: Levodopa/Carbidopa 10/100 tab ORAL SCH ×3 (09:25→18:00)
[2019-09-17] MEDS: Fluconazole 100mg tab ORAL SCH (09:25)
[2019-09-17] MEDS: Aspirin Baby 81mg ORAL SCH (09:25)
--- NOTE | 2019-09-17 10:54 | NUR ---
NURSE NOTES: PT AXOX2, CALM, RESTING IN BED. PT C/O PAIN IN STOMACH. RN ADMINISTERED PRN MORPHINE FOR PAIN AND BEFORE WOUND CARE DRESSING CHANGE. DR MCDOWELL WITH ORDER FOR TYPE SOLDERING MACHINE TENDER CONSULT; PT IS FROM HOME AND PRESENT WITH MULTIPLE WOUNDS. DR MCDOWELL MADE AWARE OF HGB 7.3, NO NEW ORDERS.
--- NOTE | 2019-09-17 11:00 | NUR ---
NURSE NOTES: WOUND DRESSING CHANGES DONE WITH WOUND CARE NURSE AND PRIMARY RN.
[2019-09-17 12:00] VITALS: BP 126/64
--- NOTE | 2019-09-17 12:23 | Cardiac Electrophysiology PN ---
Assessment/Plan Assessment/Plan 1. Elevated troponin due to renal failure with creatinine 1.7. Troponins low level between 0.5 and 0.7. No CP. ECG LBBB Nl EF and no vegetations. On aspirin. Off statin in view of rhabdomyolysis. Off beta lisbeth for bradycardia 2. Hypertension. On Norvasc 5 3. LBBB and sinus dorian in 30s. Resolved off Lopressor 4. Nonsustained VT. 5. Heart failure. BNP of more than 24,000. Echo Nl EF. Could be HFpEF 6. Urinary tract infection, on IV antibiotic. 7. 4/4 Strep Bacteremia with WBC 25K. Down to 6 K. No endocarditis. ERIBERTO on 09/10/19 showed no vegetation On Iv Abx 8. Renal failure. Creatinine of 1.7. Normalized to 1.1. 9. Uncontrolled diabetes 10. Left toe diabetic ulcer. On iv Abx. Podiatry following CLEM RN Subjective Subjective On iv Abx. No new events. Pleasantly confused Objective Last 24 Hour Vital Signs Date Time Temp Pulse Resp B/P (MAP) Pulse Ox O2 Delivery O2 Flow Rate FiO2 09/17/19 09:00 88 124/66 09/17/19 09:00 Room Air 09/17/19 08:00 97.7 88 18 124/66 (85) 97 09/17/19 04:00 98.5 86 18 134/63 (86) 94 09/17/19 00:00 98.6 95 20 124/63 (83) 94 09/16/19 20:40 Room Air 09/16/19 20:31 98.8 87 20 124/54 (77) 94 09/16/19 16:00 98.6 64 17 125/51 (75) 98 Intake and Output 09/16/19 09/17/19 19:00 07:00 Intake Total 890 ml 600 ml Output Total 800 ml 650 ml Balance 90 ml -50 ml Intake Oral 450 ml 80 ml IV Total 440 ml 520 ml Output Urine Total 800 ml 650 ml Laboratory Tests Test 09/16/19 18:20 09/17/19 06:00 White Blood Count 7.9 K/UL (4.8-10.8) Red Blood Count 2.77 M/UL (4.20-5.40) L Hemoglobin 7.3 G/DL (12.0-16.0) L Hematocrit 24.3 % (37.0-47.0) L Mean Corpuscular Volume 88 FL (80-99) Mean Corpuscular Hemoglobin 26.4 PG (27.0-31.0) L Mean Corpuscular Hemoglobin Concent 30.1 G/DL (32.0-36.0) L Red Cell Distribution Width 15.1 % (11.6-14.8) H Platelet Count 425 K/UL (150-450) Mean Platelet Volume 6.6 FL (6.5-10.1) Neutrophils (%) (Auto) % (45.0-75.0) Lymphocytes (%) (Auto) % (20.0-45.0) Monocytes (%) (Auto) % (1.0-10.0) Eosinophils (%) (Auto) % (0.0-3.0) Basophils (%) (Auto) % (0.0-2.0) Differential Total Cells Counted 100 Neutrophils % (Manual) 72 % (45-75) Lymphocytes % (Manual) 20 % (20-45) Monocytes % (Manual) 7 % (1-10) Eosinophils % (Manual) 1 % (0-3) Basophils % (Manual) 0 % (0-2) Band Neutrophils 0 % (0-8) Platelet Estimate Adequate Platelet Morphology Normal Hypochromasia 2+ Anisocytosis 2+ Erythrocyte Sedimentation Rate 130 MM/HR (0-30) H Sodium Level 142 MMOL/L (136-145) Potassium Level 4.0 MMOL/L (3.5-5.1) Chloride Level 109 MMOL/L (98-107) H Carbon Dioxide Level 23 MMOL/L (21-32) Anion Gap 10 mmol/L (5-15) Blood Urea Nitrogen 10 mg/dL (7-18) Creatinine 0.9 MG/DL (0.55-1.30) Estimat Glomerular Filtration Rate mL/min (>60) Glucose Level 136 MG/DL (74-106) H Calcium Level 8.6 MG/DL (8.5-10.1) Total Bilirubin 0.4 MG/DL (0.2-1.0) Aspartate Amino Transf (AST/SGOT) 19 U/L (15-37) Alanine Aminotransferase (ALT/SGPT) 8 U/L (12-78) L Alkaline Phosphatase 69 U/L (46-116) C-Reactive Protein, Quantitative 8.7 mg/dL (0.00-0.90) H Total Protein 7.3 G/DL (6.4-8.2) Albumin 2.0 G/DL (3.4-5.0) L Globulin 5.3 g/dL Albumin/Globulin Ratio 0.4 (1.0-2.7) L Objective HEAD AND NECK: No JVD LUNGS: Clear. CARDIOVASCULAR: Regular S1 and S2 with no gallop or murmur. ABDOMEN: Soft. EXTREMITIES: Left toe ulcer covered with dressing Luis Purdy MD Sep 17, 2019 12:23
--- NOTE | 2019-09-17 13:51 | NUR ---
CASE MANAGEMENT:REVIEW SI;BACTEREMIA. SEPSIS. TOXIC ENCEPHALOPATHY. 98.8 95 20 134/63 94% ON RA ESR 130 IS;CEFEPIME IV Q24 HRS DIFLUCAN PO QD FLAGYL PO Q8 HRS VANCOMYCIN IV Q12 HRS SANTYL TOP QD MED SURG STATUS DCP; FROM HOME
--- NOTE | 2019-09-17 14:10 | Surgery Progress Note ---
Surgery Progress Note Subjective Additional Comments no acute events comfortable stable esr elevated crp trending down Objective Last 24 Hour Vital Signs Date Time Temp Pulse Resp B/P (MAP) Pulse Ox O2 Delivery O2 Flow Rate FiO2 09/17/19 12:00 97.8 83 18 126/64 (84) 96 09/17/19 09:00 88 124/66 09/17/19 09:00 Room Air 09/17/19 08:00 97.7 88 18 124/66 (85) 97 09/17/19 04:00 98.5 86 18 134/63 (86) 94 09/17/19 00:00 98.6 95 20 124/63 (83) 94 09/16/19 20:40 Room Air 09/16/19 20:31 98.8 87 20 124/54 (77) 94 09/16/19 16:00 98.6 64 17 125/51 (75) 98 I&O Intake and Output 09/16/19 09/17/19 19:00 07:00 Intake Total 890 ml 600 ml Output Total 800 ml 650 ml Balance 90 ml -50 ml Intake Oral 450 ml 80 ml IV Total 440 ml 520 ml Output Urine Total 800 ml 650 ml Dressing: dry Wound: other Drains: other Cardiovascular: RSR Respiratory: decreased breath sounds Abdomen: soft, present bowel sounds Extremities: no tenderness, other Laboratory Tests Test 09/16/19 18:20 09/17/19 06:00 White Blood Count 7.9 K/UL (4.8-10.8) Red Blood Count 2.77 M/UL (4.20-5.40) L Hemoglobin 7.3 G/DL (12.0-16.0) L Hematocrit 24.3 % (37.0-47.0) L Mean Corpuscular Volume 88 FL (80-99) Mean Corpuscular Hemoglobin 26.4 PG (27.0-31.0) L Mean Corpuscular Hemoglobin Concent 30.1 G/DL (32.0-36.0) L Red Cell Distribution Width 15.1 % (11.6-14.8) H Platelet Count 425 K/UL (150-450) Mean Platelet Volume 6.6 FL (6.5-10.1) Neutrophils (%) (Auto) % (45.0-75.0) Lymphocytes (%) (Auto) % (20.0-45.0) Monocytes (%) (Auto) % (1.0-10.0) Eosinophils (%) (Auto) % (0.0-3.0) Basophils (%) (Auto) % (0.0-2.0) Differential Total Cells Counted 100 Neutrophils % (Manual) 72 % (45-75) Lymphocytes % (Manual) 20 % (20-45) Monocytes % (Manual) 7 % (1-10) Eosinophils % (Manual) 1 % (0-3) Basophils % (Manual) 0 % (0-2) Band Neutrophils 0 % (0-8) Platelet Estimate Adequate Platelet Morphology Normal Hypochromasia 2+ Anisocytosis 2+ Erythrocyte Sedimentation Rate 130 MM/HR (0-30) H Sodium Level 142 MMOL/L (136-145) Potassium Level 4.0 MMOL/L (3.5-5.1) Chloride Level 109 MMOL/L (98-107) H Carbon Dioxide Level 23 MMOL/L (21-32) Anion Gap 10 mmol/L (5-15) Blood Urea Nitrogen 10 mg/dL (7-18) Creatinine 0.9 MG/DL (0.55-1.30) Estimat Glomerular Filtration Rate mL/min (>60) Glucose Level 136 MG/DL (74-106) H Calcium Level 8.6 MG/DL (8.5-10.1) Total Bilirubin 0.4 MG/DL (0.2-1.0) Aspartate Amino Transf (AST/SGOT) 19 U/L (15-37) Alanine Aminotransferase (ALT/SGPT) 8 U/L (12-78) L Alkaline Phosphatase 69 U/L (46-116) C-Reactive Protein, Quantitative 8.7 mg/dL (0.00-0.90) H Total Protein 7.3 G/DL (6.4-8.2) Albumin 2.0 G/DL (3.4-5.0) L Globulin 5.3 g/dL Albumin/Globulin Ratio 0.4 (1.0-2.7) L Plan Problems: (1) Decubitus skin ulcer Assessment & Plan: Base of sacral wound is 90% soft necrosis with surrounding moist erythematous margins.Wound is malodorous Periwound is erythematous without induration or elevation in skin temp.(L)8cm x (W)10.5cm. Darker skin tone noted to R and L ischium. Unstageable pressure injury noted L hip Base of wound 90% necrotic cap that is semi-detached at edges,Oozing small amt brown exudate. Remaining 10% of wound is moist and marhta . Edges are erythematous and flat.Wound is malodorous. Periwound is erythematous and indurated. No elevation in skin temp. (L)2.5cm x ( W)1.9cm. Two small dark skin pigmentations R Hip that are in close proximity. NO erythema or induration noted. L foot edematous. Dorsal aspect of L foot is dusky. Necrotic ulcer L hallux /L 1st metatarsal (L)3.7cm x (W)5.2cm.Edges are moist and erythematous. Wound is malodorous. Small amt brown exudate noted. Periwound including L st metatarsal is dusky and fluctuant. L heel is fluctuant with non-blanching erythema. Stable dry eschar noted to distal /lateral R foot. Periwound without erythema, induration or fluctuance.(L)0.4cm x (W)0.3cm. Stable dry eschar noted to lateral R 5th metatarsal.(L)0.3cm x (W)0.3cm. NO erythema,induration or fluctuance periwound. R heel is boggy with non-blanching erythema. change Tx orders for Sacrum and L hip to Santyl Moist gauze daily and prn. Primary nurse is aware and orders changed. left foot improving no drainage now Tx.Plan: Cleanse Sacral wound with Saline. Apply Nickel thick Layer Santyl with Saline moistened Gauze. Apply Moisture Barrier Paste periwound. Cover with Optifoam drsg. Daily and prn. Cleanse L hip wound with Saline. Apply Nickel Thick layer of Santyl with Saline Moistened Gauze. Apply Moisture Barrier Paste periwound. Cover with Optifoam drsg.Daily and prn. Cleanse Wound L Hallux with Saline. Apply Nickel thick Layer Santyl with Saline moistened gauze. Cover with ABD Pad and wrap with Kerlix Daily and prn. Apply Cavilon Skin Barrier to Distal/Lateral R foot /R 5th metatarsal Daily. Apply Cavilon SKin Barrier to both heels. Cover each heel with Optifoam drsg. Change every 7 days and prn. Apply Cavilon Skin Barrier to R hip. Cover with Optifoam drsg. Change every 7 days and prn. APM/YURIY Mattress overlay. Reposition at least every 2hours or as tolerated. Off-load heels with pillow. (2) Sepsis Assessment & Plan: Leukocytosis, abnormal labs, tachycardic, per report fevers UA identified urosepsis bacteremic leukocytosis resolved improving overall anemia fevers resolved On antibiotics as per infectious disease Trend labs Okay for diet A.m. labs Wounds unlikely etiology of sepsis as they are chronic and do not look actively infected discussed with medical teams discussed with podiatry plan for abx d/c planning cont abx oral for d/c outpatient wound care follow up We will follow with recommendations thank you for let me participate in patient' s care Darrius Miller Sep 17, 2019 14:10
--- NOTE | 2019-09-17 15:17 | General Progress Note ---
Assessment/Plan Problem List: (1) Bacteremia due to group B Streptococcus ICD Codes: R78.81 - Bacteremia SNOMED: 047637037197 (2) Severe sepsis ICD Codes: A41.9 - Sepsis, unspecified organism; R65.20 - Severe sepsis without septic shock SNOMED: 83734036 (3) Toxic metabolic encephalopathy ICD Codes: G92 - Toxic encephalopathy SNOMED: 915849955 (4) Diabetes mellitus with hyperglycemia ICD Codes: E11.65 - Type 2 diabetes mellitus with hyperglycemia SNOMED: 57084838, 98919619 (5) OWEN (acute kidney injury) ICD Codes: N17.9 - Acute kidney failure, unspecified SNOMED: 0605319, 81318867 (6) NSTEMI (non-ST elevated myocardial infarction) ICD Codes: I21.4 - Non-ST elevation (NSTEMI) myocardial infarction SNOMED: 88002754, 899749296 (7) Urinary tract infection due to ESBL Klebsiella ICD Codes: N39.0 - Urinary tract infection, site not specified; B96.89 - Other specified bacterial agents as the cause of diseases classified elsewhere SNOMED: 013171105, 656739444739575 (8) Suspected acute on chronic CHF (9) Decubitus skin ulcer ICD Codes: L89.90 - Pressure ulcer of unspecified site, unspecified stage SNOMED: 503265102 (10) ATN (acute tubular necrosis) ICD Codes: N17.0 - Acute kidney failure with tubular necrosis SNOMED: 49055169 (11) Parkinson disease ICD Codes: G20 - Parkinson disease SNOMED: 83687641 (12) Bedbug bite ICD Codes: W57.XXXA - Bitten or stung by nonvenomous insect and other nonvenomous arthropods, initial encounter SNOMED: 234888874 (13) Hypernatremia ICD Codes: E87.0 - Hyperosmolality and hypernatremia SNOMED: 493625309 (14) Hypokalemia ICD Codes: E87.6 - Hypokalemia SNOMED: 22486795 (15) PAD (peripheral artery disease) ICD Codes: I73.9 - Peripheral vascular disease, unspecified SNOMED: 817064571 Status: stable Assessment/Plan: 84-year-old lady from [facility] with history of hypertension, uncontrolled diabetes, and Parkinson disease, who was brought to the emergency room by family member for altered mental status and weakness. #Osteomyelitis left foot/ 1st toe #Severe PVD #Severe sepsis #Group B strep, ESBL UTI and bacteremia - vancomycin, cefepime, flagyl - day # 25 of abx, will need 6 weeks treatment for osteomyelitis - severe pvd on arterial studies - doubtful if abx will cure osteo with this level of ischemia - ERIBERTO negative for vegetation. surveillance cultures are negative - wound culture right foot with normal maximino but likely polymicrobial infection - monitor labs, recent chest x-ray negative - d/w Dr. Lyons, surgery and podiatry f/u - diflucan for 5 days for persistent fungal uti - ID consult appreciated -General surgery consult appreciated #Uncontrolled DM II - A1c 9-->insulin sliding scale ac/hs, change to resistant scale, fsbg controlled #Parkinson's disease #Dementia - c/w PD regimen - supportive care - delirium precautions #NSTEMI #HFpEF #HTN - heparin gtt per acs protocol, DC per cards, no chest pain, stable troponin. Continue ASA, beta lisbeth (Lopressor 25), hold off on statin due to rhabdomyolysis. Decreased Lopressor to 12.5 mg bid due to low heart rate, eventually had to stop due to bradycardia on 08/29 - trend tn/ekg - s/p lasix 40 mg BID -Echocardiogram Nl EF -continue amlodipine - cardiology consult appreciated #OWEN due to ATN resolved avoid nephrotoxin medications #Hypokalemia #Hypernatremia resolved Replace as needed -discussed goals of care with family at bedside 09/15/2019 Time spent on patient care, 37 mins, >50% on counseling and coordination of care Time of this note may not reflect the time of the clinical encounter. Subjective Allergies: Coded Allergies: No Known Allergies (Unverified , 10/23/13) Subjective poor historian. following up for severe sepsis, streptococcus agalactiae - group b bacteremia, endocarditis ruled out by ERIBERTO , esbl e.coli uti, sirs, leukocytosis, ? hcap/aspiration vs pulmonary edema, left foot great toe/1st toe wound infection - MRI c/w osteomyelitis, elevated sed rate. crp trending down Objective Last 24 Hour Vital Signs Date Time Temp Pulse Resp B/P (MAP) Pulse Ox O2 Delivery O2 Flow Rate FiO2 09/17/19 12:00 97.8 83 18 126/64 (84) 96 09/17/19 09:00 88 124/66 09/17/19 09:00 Room Air 09/17/19 08:00 97.7 88 18 124/66 (85) 97 09/17/19 04:00 98.5 86 18 134/63 (86) 94 09/17/19 00:00 98.6 95 20 124/63 (83) 94 09/16/19 20:40 Room Air 09/16/19 20:31 98.8 87 20 124/54 (77) 94 09/16/19 16:00 98.6 64 17 125/51 (75) 98 Intake and Output 09/16/19 09/17/19 19:00 07:00 Intake Total 890 ml 600 ml Output Total 800 ml 650 ml Balance 90 ml -50 ml Intake Oral 450 ml 80 ml IV Total 440 ml 520 ml Output Urine Total 800 ml 650 ml Laboratory Tests 09/16/19 18:20: White Blood Count 7.9, Red Blood Count 2.77L, Hemoglobin 7.3L, Hematocrit 24.3L , Mean Corpuscular Volume 88, Mean Corpuscular Hemoglobin 26.4L, Mean Corpuscular Hemoglobin Concent 30.1L, Red Cell Distribution Width 15.1H, Platelet Count 425, Mean Platelet Volume 6.6, Neutrophils (%) (Auto) , Lymphocytes (%) (Auto) , Monocytes (%) (Auto) , Eosinophils (%) (Auto) , Basophils (%) (Auto) , Differential Total Cells Counted 100, Neutrophils % ( Manual) 72, Lymphocytes % (Manual) 20, Monocytes % (Manual) 7, Eosinophils % ( Manual) 1, Basophils % (Manual) 0, Band Neutrophils 0, Platelet Estimate Adequate, Platelet Morphology Normal, Hypochromasia 2+, Anisocytosis 2+ 09/17/19 06:00: Erythrocyte Sedimentation Rate 130H, Sodium Level 142, Potassium Level 4.0, Chloride Level 109H, Carbon Dioxide Level 23, Anion Gap 10, Blood Urea Nitrogen 10, Creatinine 0.9, Estimat Glomerular Filtration Rate , Glucose Level 136H, Calcium Level 8.6, Total Bilirubin 0.4, Aspartate Amino Transf (AST/SGOT) 19, Alanine Aminotransferase (ALT/SGPT) 8L, Alkaline Phosphatase 69, C-Reactive Protein, Quantitative 8.7H, Total Protein 7.3, Albumin 2.0L, Globulin 5.3, Albumin/Globulin Ratio 0.4L Height (Feet): 5 Height (Inches): 3.00 Weight (Pounds): 109 Objective General Appearance: WD/WN, no apparent distress, awake, confused HEENT: normocephalic, atraumatic, PERRL, EOMI, supple, no JVD Neck: non-tender, normal alignment, supple Respiratory/Chest: chest wall non-tender, lungs clear, normal breath sounds, no respiratory distress, no accessory muscle use Cardiovascular/Chest: normal peripheral pulses, normal rate, regular rhythm, no gallop/murmur, no JVD Abdomen: non tender, soft, no organomegaly Extremities: no edema, no cyanosis Neurologic: disoriented Skin: +debuts, + left foot/1st toe ulcer/Eschar. Chago Lyons M.D. Sep 17, 2019 15:17
[2019-09-17 16:00] VITALS: BP 115/59
--- NOTE | 2019-09-17 16:37 | NUR ---
ST NOTE: WEEKLY SWALLOW/SPEECH THERAPY SUMMARY: PATIENT SEEN FOR DYSPHAGIA. GOALS MET FOR STAFF EDUCATED/TRAINED IN POSTED ASPIRATION PRECAUTIONS. GOALS FOR INTAKE NOT CONSISTENTLY MET 250-5-% ON PUREED AND NECTAR THICK LIQUIDS. UNABLE TO HAVE MOD BARIUM SWALLOW STUDY DUE TO SCHEDULE CONFLICTS. PLAN: CONTINUE WITH CURRENT DIET/LIQUIDS WITH POSTED PRECAUTIONS. MOD BARIUIM SWALLOW STUDY IP OR OP IF DC (DO NOT HOLD UP DC FOR THIS STUDY)
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
--- NOTE | 2019-09-17 19:01 | NUR ---
HAND-OFF: Report given to Jeovany TALBOT RN.
--- NOTE | 2019-09-17 19:33 | NUR ---
NURSE NOTES: Received patient comfortably sleeping, kept clean and dry, wound dressings clean, dry and intact.
[2019-09-17 20:41] VITALS: BP 128/53
[2019-09-17] MEDS: Cefepime HCl 2 GM in NS 110 ML IVPB SCH (21:42)
[2019-09-18] VITALS: BP 120/79
[2019-09-18] MEDS: metroNIDAZOLE 500mg tab ORAL SCH ×3 (01:06→17:07)
[2019-09-18 04:00] VITALS: BP 112/72
[2019-09-18] MEDS: NovoLOG Insulin Flexpen SUBQ SCH ×4 (06:25→22:08)
--- NOTE | 2019-09-18 07:27 | NUR ---
HAND-OFF: Report given to En Kauffman RN.
--- NOTE | 2019-09-18 07:28 | NUR ---
NURSE NOTES: Report received from Kelsey QUIROS. Patient is awake and alert x 1. Will assist patient with meal. Patient an aspiration precaution, puree food, nectar thick liquids, and crushed meds. Patient does not appear to be in pain at this time. Patient does not appear to be in respiratory distress. Patient noted to have 20 irena IV in left upper arm with fluids running per MD orders. 22 irena noted in right forearm. Patent and in tact. Will continue to follow plan of care.
[2019-09-18 08:00] VITALS: BP 138/63
[2019-09-18] MEDS: Fluconazole 100mg tab ORAL SCH (08:48)
[2019-09-18] MEDS: Levodopa/Carbidopa 10/100 tab ORAL SCH ×3 (08:48→17:07)
[2019-09-18] MEDS: Vancomycin 500 MG in NS 110 ML IVPB SCH ×2 (08:48→22:09)
[2019-09-18] MEDS: Aspirin Baby 81mg ORAL SCH (08:48)
--- NOTE | 2019-09-18 09:38 | Surgery Progress Note ---
Surgery Progress Note Subjective Additional Comments no acute events Objective Last 24 Hour Vital Signs Date Time Temp Pulse Resp B/P (MAP) Pulse Ox O2 Delivery O2 Flow Rate FiO2 09/18/19 09:00 Room Air 09/18/19 08:48 77 138/63 09/18/19 08:00 98.6 77 16 138/63 (88) 100 09/18/19 04:00 98.9 84 18 112/72 (85) 95 09/18/19 00:00 98.6 82 18 120/79 (93) 95 09/17/19 21:00 Room Air 09/17/19 20:41 98.7 83 20 128/53 (78) 96 09/17/19 16:00 98.1 77 20 115/59 (77) 97 09/17/19 12:00 97.8 83 18 126/64 (84) 96 I&O Intake and Output 09/17/19 09/18/19 19:00 07:00 Intake Total 770 ml 440 ml Output Total 450 ml Balance 320 ml 440 ml Intake Oral 360 ml IV Total 410 ml 440 ml Output Urine Total 450 ml # Voids 2 Dressing: dry Wound: clean Cardiovascular: RSR Respiratory: clear Abdomen: soft, non-tender, present bowel sounds Extremities: no tenderness, no cyanosis Plan Problems: (1) Decubitus skin ulcer Assessment & Plan: Base of sacral wound is 90% soft necrosis with surrounding moist erythematous margins.Wound is malodorous Periwound is erythematous without induration or elevation in skin temp.(L)8cm x (W)10.5cm. Darker skin tone noted to R and L ischium. Unstageable pressure injury noted L hip Base of wound 90% necrotic cap that is semi-detached at edges,Oozing small amt brown exudate. Remaining 10% of wound is moist and martha . Edges are erythematous and flat.Wound is malodorous. Periwound is erythematous and indurated. No elevation in skin temp. (L)2.5cm x ( W)1.9cm. Two small dark skin pigmentations R Hip that are in close proximity. NO erythema or induration noted. L foot edematous. Dorsal aspect of L foot is dusky. Necrotic ulcer L hallux /L 1st metatarsal (L)3.7cm x (W)5.2cm.Edges are moist and erythematous. Wound is malodorous. Small amt brown exudate noted. Periwound including L st metatarsal is dusky and fluctuant. L heel is fluctuant with non-blanching erythema. Stable dry eschar noted to distal /lateral R foot. Periwound without erythema, induration or fluctuance.(L)0.4cm x (W)0.3cm. Stable dry eschar noted to lateral R 5th metatarsal.(L)0.3cm x (W)0.3cm. NO erythema,induration or fluctuance periwound. R heel is boggy with non-blanching erythema. change Tx orders for Sacrum and L hip to Santyl Moist gauze daily and prn. Primary nurse is aware and orders changed. left foot improving no drainage now Tx.Plan: Cleanse Sacral wound with Saline. Apply Nickel thick Layer Santyl with Saline moistened Gauze. Apply Moisture Barrier Paste periwound. Cover with Optifoam drsg. Daily and prn. Cleanse L hip wound with Saline. Apply Nickel Thick layer of Santyl with Saline Moistened Gauze. Apply Moisture Barrier Paste periwound. Cover with Optifoam drsg.Daily and prn. Cleanse Wound L Hallux with Saline. Apply Nickel thick Layer Santyl with Saline moistened gauze. Cover with ABD Pad and wrap with Kerlix Daily and prn. Apply Cavilon Skin Barrier to Distal/Lateral R foot /R 5th metatarsal Daily. Apply Cavilon SKin Barrier to both heels. Cover each heel with Optifoam drsg. Change every 7 days and prn. Apply Cavilon Skin Barrier to R hip. Cover with Optifoam drsg. Change every 7 days and prn. APM/YURIY Mattress overlay. Reposition at least every 2hours or as tolerated. Off-load heels with pillow. (2) Sepsis Assessment & Plan: Leukocytosis, abnormal labs, tachycardic, per report fevers UA identified urosepsis bacteremic leukocytosis resolved improving overall anemia fevers resolved On antibiotics as per infectious disease Trend labs Okay for diet A.m. labs Wounds unlikely etiology of sepsis as they are chronic and do not look actively infected discussed with medical teams discussed with podiatry plan for abx d/c planning cont abx oral for d/c outpatient wound care follow up We will follow with recommendations thank you for let me participate in patient' s care Darrius Miller Sep 18, 2019 09:38
--- NOTE | 2019-09-18 11:25 | Cardiac Electrophysiology PN ---
Assessment/Plan Assessment/Plan 1. Elevated troponin due to renal failure with creatinine 1.7. Troponins low level between 0.5 and 0.7. No CP. ECG LBBB Nl EF and no vegetations. On aspirin. Off statin in view of rhabdomyolysis. Off beta lisbeth for bradycardia 2. Hypertension. On Norvasc 5 3. LBBB and sinus dorian in 30s. Resolved off Lopressor 4. Nonsustained VT. 5. Heart failure. BNP of more than 24,000. Echo Nl EF. Could be HFpEF 6. Urinary tract infection, on IV antibiotic. 7. 4/4 Strep Bacteremia with WBC 25K. Down to 6 K. No endocarditis. ERIBERTO on 09/10/19 showed no vegetation On Iv Abx 8. Renal failure. Creatinine of 1.7. Normalized to 1.1. 9. Uncontrolled diabetes 10. Left toe diabetic ulcer. On iv Abx. Podiatry following CLEM RN Subjective Subjective On iv Abx. No new events. Objective Last 24 Hour Vital Signs Date Time Temp Pulse Resp B/P (MAP) Pulse Ox O2 Delivery O2 Flow Rate FiO2 09/18/19 09:00 Room Air 09/18/19 08:48 77 138/63 09/18/19 08:00 98.6 77 16 138/63 (88) 100 09/18/19 04:00 98.9 84 18 112/72 (85) 95 09/18/19 00:00 98.6 82 18 120/79 (93) 95 09/17/19 21:00 Room Air 09/17/19 20:41 98.7 83 20 128/53 (78) 96 09/17/19 16:00 98.1 77 20 115/59 (77) 97 09/17/19 12:00 97.8 83 18 126/64 (84) 96 Intake and Output 09/17/19 09/18/19 19:00 07:00 Intake Total 770 ml 440 ml Output Total 450 ml Balance 320 ml 440 ml Intake Oral 360 ml IV Total 410 ml 440 ml Output Urine Total 450 ml # Voids 2 Objective HEAD AND NECK: No JVD LUNGS: Clear. CARDIOVASCULAR: Regular S1 and S2 with no gallop or murmur. ABDOMEN: Soft. EXTREMITIES: Left toe ulcer covered with dressing Luis Purdy MD Sep 18, 2019 11:25
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
[2019-09-18 12:00] VITALS: BP 129/67
--- NOTE | 2019-09-18 12:46 | General Progress Note ---
Assessment/Plan Problem List: (1) Bacteremia due to group B Streptococcus ICD Codes: R78.81 - Bacteremia SNOMED: 183507665536 (2) Severe sepsis ICD Codes: A41.9 - Sepsis, unspecified organism; R65.20 - Severe sepsis without septic shock SNOMED: 33728691 (3) Toxic metabolic encephalopathy ICD Codes: G92 - Toxic encephalopathy SNOMED: 949054891 (4) Diabetes mellitus with hyperglycemia ICD Codes: E11.65 - Type 2 diabetes mellitus with hyperglycemia SNOMED: 33624254, 87143150 (5) OWEN (acute kidney injury) ICD Codes: N17.9 - Acute kidney failure, unspecified SNOMED: 0034676, 60993601 (6) NSTEMI (non-ST elevated myocardial infarction) ICD Codes: I21.4 - Non-ST elevation (NSTEMI) myocardial infarction SNOMED: 24364137, 435774776 (7) Urinary tract infection due to ESBL Klebsiella ICD Codes: N39.0 - Urinary tract infection, site not specified; B96.89 - Other specified bacterial agents as the cause of diseases classified elsewhere SNOMED: 644490249, 662439920082143 (8) Suspected acute on chronic CHF (9) Decubitus skin ulcer ICD Codes: L89.90 - Pressure ulcer of unspecified site, unspecified stage SNOMED: 388073248 (10) ATN (acute tubular necrosis) ICD Codes: N17.0 - Acute kidney failure with tubular necrosis SNOMED: 44538501 (11) Parkinson disease ICD Codes: G20 - Parkinson disease SNOMED: 83497102 (12) Bedbug bite ICD Codes: W57.XXXA - Bitten or stung by nonvenomous insect and other nonvenomous arthropods, initial encounter SNOMED: 339851764 (13) Hypernatremia ICD Codes: E87.0 - Hyperosmolality and hypernatremia SNOMED: 517154225 (14) Hypokalemia ICD Codes: E87.6 - Hypokalemia SNOMED: 89581346 (15) PAD (peripheral artery disease) ICD Codes: I73.9 - Peripheral vascular disease, unspecified SNOMED: 124168461 Status: stable Assessment/Plan: 84-year-old lady from [facility] with history of hypertension, uncontrolled diabetes, and Parkinson disease, who was brought to the emergency room by family member for altered mental status and weakness. #Osteomyelitis left foot/ 1st toe #Severe PVD #Severe sepsis #Group B strep, ESBL UTI and bacteremia - vancomycin, cefepime, flagyl - day # 26 of abx, will need 6 weeks treatment for osteomyelitis - ERIBERTO negative for vegetation. surveillance cultures are negative - wound culture right foot with normal maximino but likely polymicrobial infection - monitor labs, recent chest x-ray negative - d/w Dr. Mcfadden, surgery and podiatry f/u - diflucan for 5 days for persistent fungal uti - ID consult appreciated -General surgery consult appreciated #Uncontrolled DM II - A1c 9-->insulin sliding scale ac/hs, change to resistant scale, fsbg controlled #Parkinson's disease #Dementia - c/w PD regimen - supportive care - delirium precautions #NSTEMI #HFpEF #HTN - heparin gtt per acs protocol, DC per cards, no chest pain, stable troponin. Continue ASA, beta lisbeth (Lopressor 25), hold off on statin due to rhabdomyolysis. Decreased Lopressor to 12.5 mg bid due to low heart rate, eventually had to stop due to bradycardia on 08/29 - trend tn/ekg - s/p lasix 40 mg BID -Echocardiogram Nl EF -continue amlodipine - cardiology consult appreciated #OWEN due to ATN resolved avoid nephrotoxin medications #Hypokalemia #Hypernatremia resolved Replace as needed -discussed goals of care with family at bedside 09/15/2019 Time spent on patient care, 37 mins, >50% on counseling and coordination of care Time of this note may not reflect the time of the clinical encounter. Subjective Date patient seen: Sep 18, 2019 Allergies: Coded Allergies: No Known Allergies (Unverified , 10/23/13) Subjective poor historian. following up for severe sepsis, streptococcus agalactiae - group b bacteremia, endocarditis ruled out by ERIBERTO , esbl e.coli uti, sirs, leukocytosis, ? hcap/aspiration vs pulmonary edema, left foot great toe/1st toe wound infection - MRI c/w osteomyelitis, elevated sed rate, however CRP came down a lot Objective Last 24 Hour Vital Signs Date Time Temp Pulse Resp B/P (MAP) Pulse Ox O2 Delivery O2 Flow Rate FiO2 09/18/19 12:00 98.2 90 17 129/67 (87) 99 09/18/19 09:00 Room Air 09/18/19 08:48 77 138/63 09/18/19 08:00 98.6 77 16 138/63 (88) 100 09/18/19 04:00 98.9 84 18 112/72 (85) 95 09/18/19 00:00 98.6 82 18 120/79 (93) 95 09/17/19 21:00 Room Air 09/17/19 20:41 98.7 83 20 128/53 (78) 96 09/17/19 16:00 98.1 77 20 115/59 (77) 97 Intake and Output 09/17/19 09/18/19 19:00 07:00 Intake Total 770 ml 440 ml Output Total 450 ml Balance 320 ml 440 ml Intake Oral 360 ml IV Total 410 ml 440 ml Output Urine Total 450 ml # Voids 2 Height (Feet): 5 Height (Inches): 3.00 Weight (Pounds): 127 Objective General Appearance: WD/WN, no apparent distress, awake, confused HEENT: normocephalic, atraumatic, PERRL, EOMI, supple, no JVD Neck: non-tender, normal alignment, supple Respiratory/Chest: chest wall non-tender, lungs clear, normal breath sounds, no respiratory distress, no accessory muscle use Cardiovascular/Chest: normal peripheral pulses, normal rate, regular rhythm, no gallop/murmur, no JVD Abdomen: non tender, soft, no organomegaly Extremities: no edema, no cyanosis Neurologic: disoriented Skin: +debuts, + left foot/1st toe ulcer/Eschar. Chago Lyons M.D. Sep 18, 2019 12:46
--- NOTE | 2019-09-18 14:02 | NUR ---
CASE MANAGEMENT:REVIEW SI;SEPSIS. BATEREMIA. OWEN. 98.9 90 18 138/63 95% ON RA LABS - NONE IS;CEFEPIME IV Q24 HRS DIFLUCAN PO QD FLAGYL PO Q8 HRS VANCOMYCIN QD PRN PER PROTOCOL IVF NS @ 30 ML/HR MED SURG STATUS DCP;FROM HOME
[2019-09-18 16:00] VITALS: BP 122/75
--- NOTE | 2019-09-18 17:57 | Infectious Diseases Prog Note ---
Assessment/Plan Assessment/Plan ASSESSMENT AND PLAN: 1. streptococcus agalactiae - group b bacteremia, ? endocarditis, esbl e.coli uti, sirs, leukocytosis, ? pna on chest x-ray - ? hcap/aspiration vs pulmonary edema, left foot great toe/1st toe wound infection - MRI c/w osteomyelitis, elevated sed rate f/u urine culture with persistent yeast - vancomycin, cefepime, flagyl - day # 26 of abx, will need 6 weeks treatment for osteomyelitis - CRP improved significantly - 20.6 to 8.7, sed rate still elevated - ERIBERTO negative for vegetation, s/p tx for bacteremia - wound culture right foot with normal maximino but likely polymicrobial infection - monitor labs, recent chest x-ray negative - surgery note reviewed - left foot improving - finish diflucan 2. Acute kidney injury with elevated creatinine. 3. History of diabetes. 4. weakness 5. Blood pressure treatment per primary care team and diabetes treatment per primary care team and consultants. 6. Parkinson's. 7. Dementia. 8. The patient does have also elevated troponin. Cardiology follow-up. 9. MAR was noted. 10. Case was discussed with RN. 11. No known allergies. 12. Social history is negative. 13. Family history is noncontributory. 14. Continue treatment per primary consultants. 15. Orders were noted and entered. Subjective Constitutional: Denies: fever HEENT: Denies: congestion Respiratory: Denies: shortness of breath Cardiovascular: Denies: chest pain Gastrointestinal/Abdominal: Denies: nausea, vomiting, diarrhea Genitourinary: Reports: other - no arnold Neurologic: Denies: headache Psychiatric: Denies: depression Skin: Denies: rash Hematologic: Denies: bleeding Musculoskeletal: Denies: pain Allergies: Coded Allergies: No Known Allergies (Unverified , 10/23/13) Objective Vital Signs Last 24 Hour Vital Signs Date Time Temp Pulse Resp B/P (MAP) Pulse Ox O2 Delivery O2 Flow Rate FiO2 09/18/19 16:00 98.0 80 16 122/75 (91) 96 09/18/19 12:00 98.2 90 17 129/67 (87) 99 09/18/19 09:00 Room Air 09/18/19 08:48 77 138/63 09/18/19 08:00 98.6 77 16 138/63 (88) 100 09/18/19 04:00 98.9 84 18 112/72 (85) 95 09/18/19 00:00 98.6 82 18 120/79 (93) 95 09/17/19 21:00 Room Air 09/17/19 20:41 98.7 83 20 128/53 (78) 96 Height (Feet): 5 Height (Inches): 3.00 Weight (Pounds): 127 General Appearance: no acute distress HEENT: normocephalic, atraumatic, anicteric Respiratory/Chest: lungs clear, normal breath sounds, no respiratory distress, no accessory muscle use Cardiovascular: normal rate, regular rhythm, no gallop/murmur, no JVD Abdomen: normal bowel sounds, soft, non tender, no organomegaly, non distended Genitourinary: other - no arnold Extremities: other - left foot covered Skin: no rash Neurologic/Psychiatric: child care development specialist II-XII grossly normal, alert, oriented x 3, responsive Lymphatic: no neck adenopathy Musculoskeletal: no effusion Objective Chest x-ray - FINDINGS: Lungs: Mild vascular congestion. Pleural space: Unremarkable. No pneumothorax. Heart: Borderline cardiomegaly, potentially exaggerated by portable technique. Mediastinum: Calcified aorta. Bones/joints: Osteopenia. Degenerative changes. IMPRESSION: Mild vascular congestion CT abdomen: Impression: Anasarca, as described, with generalized edema of subcutaneous abdominal fat, moderate-sized bilateral pleural effusions, pulmonary interstitial and airspace edema Compressive atelectasis of the lower lobes due to the pleural fluid Evidence of rectal fecal impaction and possible stercoral proctitis Pessary, likely malpositioned, as described. There is evidence of bladder floor relaxation despite the pessary Dilated extrahepatic bile ducts. Most likely related to patient's age as no downstream obstructive lesion is demonstrated. However, correlation with liver function tests is recommended, with consideration for MRCP if clinically indicated Questionable slight retrococcygeal decubitus changes. Correlate with findings Other findings as noted, including evidence of prior renal cortical scarring, Arnold catheter, uterine arcuate artery calcifications Chest x-ray - 09/05/19 - Indication: Cough Technique: One view of the chest Comparison: 08/24/2019 Findings: There is increased interstitial edema. There is evidence of left perihilar airspace disease There is suggestion of trace bilateral pleural effusions. The heart size is upper limits normal. Impression: Increased interstitial edema, since prior exam 08/24/2019 Suspect left perihilar consolidation Small bilateral pleural effusions Chest x-ray - 09/07/19 - IMPRESSION: 1. Interval mild improvement in the diffusely increased interstitial markings compared to the prior exam, suggesting improved pulmonary interstitial edema. 2. Linear atelectasis at the periphery of the left mid lung. 3. Possible small left pleural effusion. MRI left foot: IMPRESSION: Evidence of acute osteomyelitis involving the hallux as described above. Cellulitis. Microbiology Date/Time Source Procedure Growth Status 09/03/19 21:00 Blood Blood Culture - Final NO GROWTH AFTER 5 DAYS Complete 09/12/19 14:45 Indwelling Cath Urine Culture - Final Nehal Albicans Complete 09/07/19 13:12 Foot Left Gram Stain - Final Complete 09/07/19 13:12 Wound Culture - Final Usual Skin Maximino Complete Labs Test 09/16/19 18:20 09/17/19 06:00 White Blood Count 7.9 K/UL (4.8-10.8) Red Blood Count 2.77 M/UL (4.20-5.40) Hemoglobin 7.3 G/DL (12.0-16.0) Hematocrit 24.3 % (37.0-47.0) Mean Corpuscular Volume 88 FL (80-99) Mean Corpuscular Hemoglobin 26.4 PG (27.0-31.0) Mean Corpuscular Hemoglobin Concent 30.1 G/DL (32.0-36.0) Red Cell Distribution Width 15.1 % (11.6-14.8) Platelet Count 425 K/UL (150-450) Mean Platelet Volume 6.6 FL (6.5-10.1) Neutrophils (%) (Auto) % (45.0-75.0) Lymphocytes (%) (Auto) % (20.0-45.0) Monocytes (%) (Auto) % (1.0-10.0) Eosinophils (%) (Auto) % (0.0-3.0) Basophils (%) (Auto) % (0.0-2.0) Differential Total Cells Counted 100 Neutrophils % (Manual) 72 % (45-75) Lymphocytes % (Manual) 20 % (20-45) Monocytes % (Manual) 7 % (1-10) Eosinophils % (Manual) 1 % (0-3) Basophils % (Manual) 0 % (0-2) Band Neutrophils 0 % (0-8) Platelet Estimate Adequate Platelet Morphology Normal Hypochromasia 2+ Anisocytosis 2+ Erythrocyte Sedimentation Rate 130 MM/HR (0-30) Sodium Level 142 MMOL/L (136-145) Potassium Level 4.0 MMOL/L (3.5-5.1) Chloride Level 109 MMOL/L (98-107) Carbon Dioxide Level 23 MMOL/L (21-32) Anion Gap 10 mmol/L (5-15) Blood Urea Nitrogen 10 mg/dL (7-18) Creatinine 0.9 MG/DL (0.55-1.30) Estimat Glomerular Filtration Rate mL/min (>60) Glucose Level 136 MG/DL (74-106) Calcium Level 8.6 MG/DL (8.5-10.1) Total Bilirubin 0.4 MG/DL (0.2-1.0) Aspartate Amino Transf (AST/SGOT) 19 U/L (15-37) Alanine Aminotransferase (ALT/SGPT) 8 U/L (12-78) Alkaline Phosphatase 69 U/L (46-116) C-Reactive Protein, Quantitative 8.7 mg/dL (0.00-0.90) Total Protein 7.3 G/DL (6.4-8.2) Albumin 2.0 G/DL (3.4-5.0) Globulin 5.3 g/dL Albumin/Globulin Ratio 0.4 (1.0-2.7) Current Medications Medications (Trade) Dose Ordered Sig/Krystin Route PRN Reason Start Time Stop Time Status Last Admin Dose Admin Acetaminophen (Tylenol) 650 mg Q4H PRN ORAL Mild Pain/Temp > 100.5 09/11/19 18:45 09/24/19 18:44 Amlodipine Besylate (Norvasc) 5 mg DAILY ORAL 09/12/19 09:00 09/28/19 08:59 09/18/19 08:48 Aspirin (ASA) 81 mg DAILY ORAL 09/12/19 09:00 09/24/19 08:59 09/18/19 08:48 Carbidopa/Levodopa (Sinemet 10/100) 1 tab THREE TIMES A DAY ORAL 09/12/19 09:00 09/24/19 08:59 09/18/19 17:07 Cefepime HCl 2 gm/ Sodium Chloride 110 ml @ 220 mls/hr Q24H IVPB 09/16/19 21:00 09/23/19 20:59 09/17/19 21:42 Collagenase (Santyl) 1 applic DAILY TOPIC 09/12/19 09:00 10/06/19 16:59 09/18/19 08:49 Dextrose (Dextrose 50%) 25 ml Q30M PRN IV Hypoglycemia 09/11/19 18:45 09/23/19 19:14 09/11/19 22:07 Dextrose (Dextrose 50%) 50 ml Q30M PRN IV Hypoglycemia 09/11/19 18:45 09/23/19 19:14 Fluconazole (Diflucan) 100 mg DAILY ORAL 09/15/19 09:00 09/22/19 08:59 09/18/19 08:48 Insulin Aspart (NovoLOG) BEFORE MEALS AND HS SUBQ 09/11/19 21:00 09/29/19 20:59 09/16/19 16:45 Metronidazole (Flagyl) 500 mg Q8H ORAL 09/13/19 01:00 09/21/19 00:59 09/18/19 17:07 Morphine Sulfate (Morphine Sulfate) 2 mg Q4H PRN IVP For Pain (wound and dressing) 09/11/19 19:30 09/18/19 19:29 09/17/19 09:41 Sodium Chloride 1,000 ml @ 30 mls/hr Q24H IV 09/11/19 18:45 10/08/19 16:44 09/18/19 17:06 Vancomycin HCl (Vanco rx to dose) 1 ea DAILY PRN MISC Per rx protocol 09/12/19 08:45 10/12/19 08:44 Vancomycin HCl 500 mg/Sodium Chloride 110 ml @ 110 mls/hr Q12HR IVPB 09/12/19 09:00 09/21/19 08:59 09/18/19 08:48 Gerardo Toledo MD Sep 18, 2019 17:57
--- NOTE | 2019-09-18 19:15 | NUR ---
HAND-OFF: Report given to Anthony QUIROS. Patient in stable condition.
--- NOTE | 2019-09-18 19:20 | NUR ---
NURSE NOTES: Pt. received from ISHAAN Gatica. Pt. AAOx1, on room air, no indications of pain, no signs of SOB. Buckner intact, draining well. IV site left upper arm 20g asymptomatic, intact, and patent; NS 30cc/hr. IV right forearm 22g asymptomatic, intact, and patent; saline locked. Bed is low and locked, head of bed elevated, side rails x2 up and padded, call light in reach, and bed alarm is active. Will continue to monitor.
[2019-09-18 20:00] VITALS: BP 121/56
[2019-09-18] MEDS: Cefepime HCl 2 GM in NS 110 ML IVPB SCH (21:02)
[2019-09-19] VITALS: BP 106/53
[2019-09-19] MEDS: metroNIDAZOLE 500mg tab ORAL SCH ×3 (00:21→17:14)
[2019-09-19 04:00] VITALS: BP 115/55
--- NOTE | 2019-09-19 05:32 | NUR ---
NURSE NOTES: Pt. tolerated PO flagyl at 0000 well, no indications of aspiration. Wound care and dressings changed on R lateral foot, L hallux, L hip, and sacral. Pt. tolerated well.
[2019-09-19] MEDS: NovoLOG Insulin Flexpen SUBQ SCH ×4 (06:27→21:00)
--- NOTE | 2019-09-19 07:01 | NUR ---
HAND-OFF: Report given to ISHAAN Gatica.
--- NOTE | 2019-09-19 07:14 | NUR ---
NURSE NOTES: Report received from Anthony QUIROS. Patient is awake and alert x 1. Will assist patient with meal. Patient an aspiration precaution, puree food, nectar thick liquids, and crushed meds. Patient does not appear to be in pain at this time. Patient does not appear to be in respiratory distress. Patient noted to have 20 irena IV in left upper arm with fluids running per MD orders. 22 irena noted in right forearm. Patent and in tact. Daily dressings changed this morning by pervious nurse . Will continue to monitor for need of PRN dressing changes. Will continue to follow plan of care.
[2019-09-19 08:00] VITALS: BP 128/57
[2019-09-19] MEDS: Levodopa/Carbidopa 10/100 tab ORAL SCH ×3 (08:26→17:14)
[2019-09-19] MEDS: Aspirin Baby 81mg ORAL SCH (08:28)
[2019-09-19] MEDS: Vancomycin 500 MG in NS 110 ML IVPB SCH (08:28)
--- NOTE | 2019-09-19 10:43 | NUR ---
PT WEEKLY PROGRESS NOTE Patient being seen by PT for ther ex, bed mobility training and balance activities. Patient requires max assist to come to sitting at the EOB. Patient able to sit at the EOB without physical assistance using her UEs for support. Patient with c/o L knee and low back pain, unable to fully extend L knee due to pain. Patient unable to stand due to LE weakness, L knee pain and inability to fully extend L knee. Patient will benefit from continued skilled inpatient PT intervention to address strength, balance and safety for improved level of independence with functional mobility.
--- NOTE | 2019-09-19 10:57 | Surgery Progress Note ---
Surgery Progress Note Subjective Additional Comments no acute events comfortable stable Objective Last 24 Hour Vital Signs Date Time Temp Pulse Resp B/P (MAP) Pulse Ox O2 Delivery O2 Flow Rate FiO2 09/19/19 09:00 Room Air 09/19/19 08:27 76 128/57 09/19/19 08:00 98.4 75 16 128/57 (80) 99 09/19/19 04:00 98.6 87 16 115/55 (75) 97 09/19/19 00:00 98.4 82 18 106/53 (70) 99 09/18/19 21:00 Room Air 09/18/19 20:00 98.6 90 16 121/56 (77) 94 09/18/19 16:00 98.0 80 16 122/75 (91) 96 09/18/19 12:00 98.2 90 17 129/67 (87) 99 I&O Intake and Output 09/18/19 09/19/19 19:00 07:00 Intake Total 500 ml 550 ml Output Total 1200 ml 600 ml Balance -700 ml -50 ml Intake Oral 120 ml IV Total 380 ml 550 ml Output Urine Total 1200 ml 600 ml # Voids 1 Dressing: other Wound: other Drains: other Cardiovascular: RSR Respiratory: decreased breath sounds Abdomen: soft, present bowel sounds Extremities: no tenderness, no cyanosis Plan Problems: (1) Decubitus skin ulcer Assessment & Plan: Base of sacral wound is 90% soft necrosis with surrounding moist erythematous margins.Wound is malodorous Periwound is erythematous without induration or elevation in skin temp.(L)8cm x (W)10.5cm. Darker skin tone noted to R and L ischium. Unstageable pressure injury noted L hip Base of wound 90% necrotic cap that is semi-detached at edges,Oozing small amt brown exudate. Remaining 10% of wound is moist and martha . Edges are erythematous and flat.Wound is malodorous. Periwound is erythematous and indurated. No elevation in skin temp. (L)2.5cm x ( W)1.9cm. Two small dark skin pigmentations R Hip that are in close proximity. NO erythema or induration noted. L foot edematous. Dorsal aspect of L foot is dusky. Necrotic ulcer L hallux /L 1st metatarsal (L)3.7cm x (W)5.2cm.Edges are moist and erythematous. Wound is malodorous. Small amt brown exudate noted. Periwound including L st metatarsal is dusky and fluctuant. L heel is fluctuant with non-blanching erythema. Stable dry eschar noted to distal /lateral R foot. Periwound without erythema, induration or fluctuance.(L)0.4cm x (W)0.3cm. Stable dry eschar noted to lateral R 5th metatarsal.(L)0.3cm x (W)0.3cm. NO erythema,induration or fluctuance periwound. R heel is boggy with non-blanching erythema. change Tx orders for Sacrum and L hip to Santyl Moist gauze daily and prn. Primary nurse is aware and orders changed. left foot improving no drainage now Tx.Plan: Cleanse Sacral wound with Saline. Apply Nickel thick Layer Santyl with Saline moistened Gauze. Apply Moisture Barrier Paste periwound. Cover with Optifoam drsg. Daily and prn. Cleanse L hip wound with Saline. Apply Nickel Thick layer of Santyl with Saline Moistened Gauze. Apply Moisture Barrier Paste periwound. Cover with Optifoam drsg.Daily and prn. Cleanse Wound L Hallux with Saline. Apply Nickel thick Layer Santyl with Saline moistened gauze. Cover with ABD Pad and wrap with Kerlix Daily and prn. Apply Cavilon Skin Barrier to Distal/Lateral R foot /R 5th metatarsal Daily. Apply Cavilon SKin Barrier to both heels. Cover each heel with Optifoam drsg. Change every 7 days and prn. Apply Cavilon Skin Barrier to R hip. Cover with Optifoam drsg. Change every 7 days and prn. APM/YURIY Mattress overlay. Reposition at least every 2hours or as tolerated. Off-load heels with pillow. (2) Sepsis Assessment & Plan: Leukocytosis, abnormal labs, tachycardic, per report fevers UA identified urosepsis bacteremic leukocytosis resolved improving overall anemia fevers resolved On antibiotics as per infectious disease Trend labs Okay for diet A.m. labs Wounds unlikely etiology of sepsis as they are chronic and do not look actively infected discussed with medical teams discussed with podiatry plan for abx d/c planning cont abx oral for d/c outpatient wound care follow up We will follow with recommendations thank you for let me participate in patient' s care Darrius Miller Sep 19, 2019 10:57
[2019-09-19 12:00] VITALS: BP 110/65
--- NOTE | 2019-09-19 12:17 | General Progress Note ---
Assessment/Plan Problem List: (1) Bacteremia due to group B Streptococcus ICD Codes: R78.81 - Bacteremia SNOMED: 461657446153 (2) Severe sepsis ICD Codes: A41.9 - Sepsis, unspecified organism; R65.20 - Severe sepsis without septic shock SNOMED: 30774898 (3) Toxic metabolic encephalopathy ICD Codes: G92 - Toxic encephalopathy SNOMED: 507750669 (4) Diabetes mellitus with hyperglycemia ICD Codes: E11.65 - Type 2 diabetes mellitus with hyperglycemia SNOMED: 86098233, 14474627 (5) OWEN (acute kidney injury) ICD Codes: N17.9 - Acute kidney failure, unspecified SNOMED: 1537259, 01366399 (6) NSTEMI (non-ST elevated myocardial infarction) ICD Codes: I21.4 - Non-ST elevation (NSTEMI) myocardial infarction SNOMED: 95551670, 285298032 (7) Urinary tract infection due to ESBL Klebsiella ICD Codes: N39.0 - Urinary tract infection, site not specified; B96.89 - Other specified bacterial agents as the cause of diseases classified elsewhere SNOMED: 861012861, 268649831392106 (8) Suspected acute on chronic CHF (9) Decubitus skin ulcer ICD Codes: L89.90 - Pressure ulcer of unspecified site, unspecified stage SNOMED: 177590525 (10) ATN (acute tubular necrosis) ICD Codes: N17.0 - Acute kidney failure with tubular necrosis SNOMED: 56134384 (11) Parkinson disease ICD Codes: G20 - Parkinson disease SNOMED: 19738124 (12) Bedbug bite ICD Codes: W57.XXXA - Bitten or stung by nonvenomous insect and other nonvenomous arthropods, initial encounter SNOMED: 492716628 (13) Hypernatremia ICD Codes: E87.0 - Hyperosmolality and hypernatremia SNOMED: 306968549 (14) Hypokalemia ICD Codes: E87.6 - Hypokalemia SNOMED: 10818043 (15) PAD (peripheral artery disease) ICD Codes: I73.9 - Peripheral vascular disease, unspecified SNOMED: 757252211 Status: stable Assessment/Plan: 84-year-old lady from [facility] with history of hypertension, uncontrolled diabetes, and Parkinson disease, who was brought to the emergency room by family member for altered mental status and weakness. #Osteomyelitis left foot/ 1st toe #Severe PVD #Severe sepsis #Group B strep, ESBL UTI and bacteremia - vancomycin, cefepime, flagyl - day # 27 of abx, will need 6 weeks treatment for osteomyelitis - ERIBERTO negative for vegetation. surveillance cultures are negative - wound culture right foot with normal maximino but likely polymicrobial infection - monitor labs, recent chest x-ray negative - d/w Dr. Mcfadden, surgery and podiatry f/u - diflucan for 5 days for persistent fungal uti - ID consult appreciated -General surgery consult appreciated #Uncontrolled DM II - A1c 9-->insulin sliding scale ac/hs, change to resistant scale, fsbg controlled #Parkinson's disease #Dementia - c/w PD regimen - supportive care - delirium precautions #NSTEMI #HFpEF #HTN - heparin gtt per acs protocol, DC per cards, no chest pain, stable troponin. Continue ASA, beta lisbeth (Lopressor 25), hold off on statin due to rhabdomyolysis. Decreased Lopressor to 12.5 mg bid due to low heart rate, eventually had to stop due to bradycardia on 08/29 - trend tn/ekg - s/p lasix 40 mg BID -Echocardiogram Nl EF -continue amlodipine - cardiology consult appreciated #OWEN due to ATN resolved avoid nephrotoxin medications #Hypokalemia #Hypernatremia resolved Replace as needed -discussed goals of care with family at bedside 09/15/2019 Time spent on patient care, 37 mins, >50% on counseling and coordination of care Time of this note may not reflect the time of the clinical encounter. Subjective Date patient seen: Sep 19, 2019 Allergies: Coded Allergies: No Known Allergies (Unverified , 10/23/13) Subjective poor historian. following up for severe sepsis, streptococcus agalactiae - group b bacteremia, endocarditis ruled out by ERIBERTO , esbl e.coli uti, sirs, leukocytosis, ? hcap/aspiration vs pulmonary edema, left foot great toe/1st toe wound infection - MRI c/w osteomyelitis, elevated sed rate, however CRP significant improvement Objective Last 24 Hour Vital Signs Date Time Temp Pulse Resp B/P (MAP) Pulse Ox O2 Delivery O2 Flow Rate FiO2 09/19/19 09:00 Room Air 09/19/19 08:27 76 128/57 09/19/19 08:00 98.4 75 16 128/57 (80) 99 09/19/19 04:00 98.6 87 16 115/55 (75) 97 09/19/19 00:00 98.4 82 18 106/53 (70) 99 09/18/19 21:00 Room Air 09/18/19 20:00 98.6 90 16 121/56 (77) 94 09/18/19 16:00 98.0 80 16 122/75 (91) 96 Intake and Output 09/18/19 09/19/19 19:00 07:00 Intake Total 500 ml 550 ml Output Total 1200 ml 600 ml Balance -700 ml -50 ml Intake Oral 120 ml IV Total 380 ml 550 ml Output Urine Total 1200 ml 600 ml # Voids 1 Height (Feet): 5 Height (Inches): 3.00 Weight (Pounds): 127 Objective General Appearance: WD/WN, no apparent distress, awake, confused HEENT: normocephalic, atraumatic, PERRL, EOMI, supple, no JVD Neck: non-tender, normal alignment, supple Respiratory/Chest: chest wall non-tender, lungs clear, normal breath sounds, no respiratory distress, no accessory muscle use Cardiovascular/Chest: normal peripheral pulses, normal rate, regular rhythm, no gallop/murmur, no JVD Abdomen: non tender, soft, no organomegaly Extremities: no edema, no cyanosis Neurologic: disoriented Skin: +debuts, + left foot/1st toe ulcer/Eschar. Chago Lyons M.D. Sep 19, 2019 12:17
--- NOTE | 2019-09-19 13:06 | NUR ---
RD ASSESSMENT & RECOMMENDATIONS SEE CARE ACTIVITY FOR COMPLETE ASSESSMENT DAILY ESTIMATED NEEDS: Needs based on Wounds, DM 49kg 30-35 kcals/kg 7014-3762 total kcals 1.25-2 g protein/kg 61-98 g total protein 25-30ml/kcal mL/kg 3139-6031 total fluid mLs NUTRITION DIAGNOSIS: Increased kcal and pro needs r/t wound healing as evidenced by pt w/ multiple areas of skin breakdown including unstageable L hip wounds x2, refer to WC eval for full assessment. CURRENT DIET:CCHO MED, liquify pureed moist w/ NTL PO DIET RECOMMENDATIONS: Liberalized REGULAR / texture per BUCKLE GLUER ADDITIONAL RECOMMENDATIONS: 1) Glucerna TID w/ meals added; Encourage HD snack intake 2) Hypoglycemic episode, rec low rate D5 w/ continued fair to poor intake 3) Wound care: if tolerated ANTONIA BID + Vit C 250mg BID + MVI w/ min q daily 4) Calibrated bed scale wts daily, EMR appear stable 5) Consider appetite stimulant w/ continued poor and variable PO 6) Replete lytes as needed
--- NOTE | 2019-09-19 14:01 | NUR ---
CASE MANAGEMENT:REVIEW SI;SEPSIS. BATEREMIA. OWEN. 98.6 87 18 106/53 97% ON RA NO LABS AVAILABLE IS;CEFEPIME IV Q24 HRS FLAGYL PO Q8 HRS VANCOMYCIN IV Q12 HRS IVF NS @ 30ML/HR SANTYL TOPICAL QD MED SURG STATUS DCP;FROM HOME
[2019-09-19 16:00] VITALS: BP 140/58
--- NOTE | 2019-09-19 16:59 | Cardiac Electrophysiology PN ---
Assessment/Plan Assessment/Plan 1. Elevated troponin due to renal failure with creatinine 1.7. Troponins low level between 0.5 and 0.7. No CP. ECG LBBB Nl EF and no vegetations. On aspirin. Off statin in view of rhabdomyolysis. Off beta lisbeth for bradycardia 2. Hypertension. On Norvasc 5 3. LBBB and sinus dorian in 30s. Resolved off Lopressor 4. Nonsustained VT. 5. Heart failure. BNP of more than 24,000. Echo Nl EF. Could be HFpEF 6. Urinary tract infection, on IV antibiotic. 7. 4/4 Strep Bacteremia with WBC 25K. Down to 6 K. No endocarditis. ERIBERTO on 09/10/19 showed no vegetation On Iv Abx 8. Renal failure. Creatinine of 1.7. Normalized to 1.1. 9. Uncontrolled diabetes 10. Left toe diabetic ulcer. On iv Abx. Podiatry following DW RN Subjective Subjective On iv Abx per ID/ Very weak. No new events. Objective Last 24 Hour Vital Signs Date Time Temp Pulse Resp B/P (MAP) Pulse Ox O2 Delivery O2 Flow Rate FiO2 09/19/19 12:00 97.8 68 18 110/65 (80) 98 09/19/19 09:00 Room Air 09/19/19 08:27 76 128/57 09/19/19 08:00 98.4 75 16 128/57 (80) 99 09/19/19 04:00 98.6 87 16 115/55 (75) 97 09/19/19 00:00 98.4 82 18 106/53 (70) 99 09/18/19 21:00 Room Air 09/18/19 20:00 98.6 90 16 121/56 (77) 94 Intake and Output 09/18/19 09/19/19 19:00 07:00 Intake Total 500 ml 550 ml Output Total 1200 ml 600 ml Balance -700 ml -50 ml Intake Oral 120 ml IV Total 380 ml 550 ml Output Urine Total 1200 ml 600 ml # Voids 1 Objective HEAD AND NECK: No JVD LUNGS: Clear. CARDIOVASCULAR: Regular S1 and S2 with no gallop or murmur. ABDOMEN: Soft. EXTREMITIES: Left toe ulcer covered with dressing Luis Purdy MD Sep 19, 2019 16:59
--- NOTE | 2019-09-19 19:30 | NUR ---
NURSE NOTES: Received pt form ISHAAN Gatica. Pt sleeping in bed, on room air. IV site intact and running IVF. Buckner intact and secured to the leg. Wound dressings dry and clean. Fall and aspiration precaution maintained. HOB elevated. Will crush meds. Bed locked, lowest position, side rails up, alarm on, call light within reach. Will continue to monitor.
--- NOTE | 2019-09-19 19:30 | NUR ---
HAND-OFF: Report given to Candelaria QUIROS.
[2019-09-19 20:00] VITALS: BP 123/55
[2019-09-19] MEDS: Cefepime HCl 2 GM in NS 110 ML IVPB SCH (21:18)
[2019-09-20] VITALS: BP 117/57
[2019-09-20] MEDS: metroNIDAZOLE 500mg tab ORAL SCH ×3 (00:27→17:07)
[2019-09-20 04:00] VITALS: BP 125/61
--- NOTE | 2019-09-20 04:49 | NUR ---
NURSE NOTES: Provided wound care and changed wound dressings as ordered.
[2019-09-20] MEDS: NovoLOG Insulin Flexpen SUBQ SCH ×4 (05:37→20:55)
[2019-09-20] MEDS: Vancomycin 750 MG in NS 275 ML IVPB SCH (05:45)
[2019-09-20 06:38] LABS: HEMATOCRIT 23.9 % (37.0-47.0); HEMOGLOBIN 7.7 G/DL (12.0-16.0); MEAN CORPUSCULAR VOLUME 83 FL (80-99); PLATELET COUNT 449 K/UL (150-450); RED BLOOD COUNT 2.87 M/UL (4.20-5.40); RED CELL DISTRIBUTION WIDTH 15.5 % (11.6-14.8); WHITE BLOOD COUNT 8.5 K/UL (4.8-10.8)
--- NOTE | 2019-09-20 07:04 | NUR ---
HAND-OFF: Report given to ISHAAN Gatica. Endorsed high fall risk status to oncoming shift.
[2019-09-20 07:05] LABS: ALANINE AMINOTRANSFERASE 7 U/L (12-78); ALBUMIN 2.1 G/DL (3.4-5.0); ALBUMIN/GLOBULIN RATIO 0.4 (1.0-2.7); ALKALINE PHOSPHATASE 68 U/L (46-116); ANION GAP 12 mmol/L (5-15); ASPARTATE AMINO TRANSFERASE 17 U/L (15-37); BILIRUBIN,TOTAL 0.4 MG/DL (0.2-1.0); BLOOD UREA NITROGEN 8 mg/dL (7-18); CALCIUM 8.6 MG/DL (8.5-10.1); CARBON DIOXIDE 22 MMOL/L (21-32); CHLORIDE 108 MMOL/L (98-107); CREATININE 0.9 MG/DL (0.55-1.30); POTASSIUM 3.6 MMOL/L (3.5-5.1); SODIUM 142 MMOL/L (136-145)
--- NOTE | 2019-09-20 07:22 | NUR ---
NURSE NOTES: Report received from Candelaria QUIROS. Endorsed by previous nurse that patient is a high fall risk. Patient is only alert and oriented x 1. Patient is bed bound, weak, and unsteady on feet. Patient has yellow socks, sign outside room, and will due frequent checks on patient. Bed locked, alarmed, and in lowest position. Patient noted to have IV fluids running per MD orders. Indwelling Buckner catheter noted draining clear yellow urine. All dressings changed by previous nurse. Will continue to follow plan of care.
[2019-09-20 08:00] VITALS: BP 125/62
[2019-09-20] MEDS: Levodopa/Carbidopa 10/100 tab ORAL SCH ×3 (09:16→17:06)
[2019-09-20] MEDS: Aspirin Baby 81mg ORAL SCH (09:16)
--- NOTE | 2019-09-20 10:40 | Cardiac Electrophysiology PN ---
Assessment/Plan Assessment/Plan 1. Elevated troponin due to renal failure with creatinine 1.7. Troponins low level between 0.5 and 0.7. No CP. ECG LBBB Nl EF and no vegetations. On aspirin. Off statin for rhabdomyolysis. Off beta lisbeth for bradycardia 2. Hypertension. On Norvasc 5 3. LBBB and sinus dorian in 30s. Resolved off Lopressor 4. Nonsustained VT. 5. Heart failure. BNP of more than 24,000. Echo Nl EF. Could be HFpEF 6. Urinary tract infection, on IV antibiotic. 7. 4/4 Strep Bacteremia with WBC 25K. Down to 6 K. No endocarditis. ERIBERTO on 09/10/19 no vegetation. On Iv Abx 8. Renal failure. Creatinine of 1.7. Normalized to 1.1. 9. Uncontrolled diabetes 10. Left toe diabetic ulcer. On iv Abx. Podiatry following Dressing chage daily CLEM RN Subjective Subjective On iv Abx and daily foot dressing change. No new events. Objective Last 24 Hour Vital Signs Date Time Temp Pulse Resp B/P (MAP) Pulse Ox O2 Delivery O2 Flow Rate FiO2 09/20/19 09:00 90 125/62 09/20/19 04:00 97.8 86 22 125/61 (82) 95 09/20/19 00:00 98.6 80 21 117/57 (77) 95 09/19/19 21:00 Room Air 09/19/19 20:00 98.2 81 21 123/55 (77) 98 09/19/19 16:00 98.1 85 18 140/58 (85) 97 09/19/19 12:00 97.8 68 18 110/65 (80) 98 Intake and Output 09/19/19 09/20/19 19:00 07:00 Intake Total 1310 ml 360 ml Output Total 450 ml Balance 1310 ml -90 ml Intake Oral 900 ml IV Total 410 ml 360 ml Output Urine Total 450 ml # Voids 1 Laboratory Tests Test 09/19/19 20:30 09/20/19 06:13 Vancomycin Level Trough 20.5 ug/mL (5.0-12.0) H White Blood Count 8.5 K/UL (4.8-10.8) Red Blood Count 2.87 M/UL (4.20-5.40) L Hemoglobin 7.7 G/DL (12.0-16.0) L Hematocrit 23.9 % (37.0-47.0) L Mean Corpuscular Volume 83 FL (80-99) Mean Corpuscular Hemoglobin 26.7 PG (27.0-31.0) L Mean Corpuscular Hemoglobin Concent 32.2 G/DL (32.0-36.0) Red Cell Distribution Width 15.5 % (11.6-14.8) H Platelet Count 449 K/UL (150-450) Mean Platelet Volume 5.4 FL (6.5-10.1) L Neutrophils (%) (Auto) % (45.0-75.0) Lymphocytes (%) (Auto) % (20.0-45.0) Monocytes (%) (Auto) % (1.0-10.0) Eosinophils (%) (Auto) % (0.0-3.0) Basophils (%) (Auto) % (0.0-2.0) Differential Total Cells Counted 100 Neutrophils % (Manual) 66 % (45-75) Lymphocytes % (Manual) 22 % (20-45) Monocytes % (Manual) 12 % (1-10) H Eosinophils % (Manual) 0 % (0-3) Basophils % (Manual) 0 % (0-2) Band Neutrophils 0 % (0-8) Platelet Estimate Adequate Platelet Morphology Normal Hypochromasia 1+ Anisocytosis 1+ Sodium Level 142 MMOL/L (136-145) Potassium Level 3.6 MMOL/L (3.5-5.1) Chloride Level 108 MMOL/L (98-107) H Carbon Dioxide Level 22 MMOL/L (21-32) Anion Gap 12 mmol/L (5-15) Blood Urea Nitrogen 8 mg/dL (7-18) Creatinine 0.9 MG/DL (0.55-1.30) Estimat Glomerular Filtration Rate 59.4 mL/min (>60) Glucose Level 134 MG/DL (74-106) H Calcium Level 8.6 MG/DL (8.5-10.1) Total Bilirubin 0.4 MG/DL (0.2-1.0) Aspartate Amino Transf (AST/SGOT) 17 U/L (15-37) Alanine Aminotransferase (ALT/SGPT) 7 U/L (12-78) L Alkaline Phosphatase 68 U/L (46-116) Total Protein 7.4 G/DL (6.4-8.2) Albumin 2.1 G/DL (3.4-5.0) L Globulin 5.3 g/dL Albumin/Globulin Ratio 0.4 (1.0-2.7) L Objective HEAD AND NECK: No JVD LUNGS: Clear. CARDIOVASCULAR: Regular S1 and S2 with no gallop or murmur. ABDOMEN: Soft. EXTREMITIES: Left toe ulcer covered with dressing Luis Purdy MD Sep 20, 2019 10:40
--- NOTE | 2019-09-20 11:26 | General Progress Note ---
Assessment/Plan Problem List: (1) Bacteremia due to group B Streptococcus ICD Codes: R78.81 - Bacteremia SNOMED: 503950816634 (2) Severe sepsis ICD Codes: A41.9 - Sepsis, unspecified organism; R65.20 - Severe sepsis without septic shock SNOMED: 56751841 (3) Toxic metabolic encephalopathy ICD Codes: G92 - Toxic encephalopathy SNOMED: 351948579 (4) Diabetes mellitus with hyperglycemia ICD Codes: E11.65 - Type 2 diabetes mellitus with hyperglycemia SNOMED: 73728863, 76881902 (5) OWEN (acute kidney injury) ICD Codes: N17.9 - Acute kidney failure, unspecified SNOMED: 8478062, 46618497 (6) NSTEMI (non-ST elevated myocardial infarction) ICD Codes: I21.4 - Non-ST elevation (NSTEMI) myocardial infarction SNOMED: 04802082, 878460789 (7) Urinary tract infection due to ESBL Klebsiella ICD Codes: N39.0 - Urinary tract infection, site not specified; B96.89 - Other specified bacterial agents as the cause of diseases classified elsewhere SNOMED: 542319171, 003386474617792 (8) Suspected acute on chronic CHF (9) Decubitus skin ulcer ICD Codes: L89.90 - Pressure ulcer of unspecified site, unspecified stage SNOMED: 945811778 (10) ATN (acute tubular necrosis) ICD Codes: N17.0 - Acute kidney failure with tubular necrosis SNOMED: 74503679 (11) Parkinson disease ICD Codes: G20 - Parkinson disease SNOMED: 39294332 (12) Bedbug bite ICD Codes: W57.XXXA - Bitten or stung by nonvenomous insect and other nonvenomous arthropods, initial encounter SNOMED: 657906022 (13) Hypernatremia ICD Codes: E87.0 - Hyperosmolality and hypernatremia SNOMED: 775650495 (14) Hypokalemia ICD Codes: E87.6 - Hypokalemia SNOMED: 08665175 (15) PAD (peripheral artery disease) ICD Codes: I73.9 - Peripheral vascular disease, unspecified SNOMED: 508527879 Status: stable Assessment/Plan: 84-year-old lady from [facility] with history of hypertension, uncontrolled diabetes, and Parkinson disease, who was brought to the emergency room by family member for altered mental status and weakness. #Osteomyelitis left foot/ 1st toe #Severe PVD #Severe sepsis #Group B strep, ESBL UTI and bacteremia - vancomycin, cefepime, flagyl - day # 28 of abx, will need 6 weeks treatment for osteomyelitis - ERIBERTO negative for vegetation. surveillance cultures are negative - wound culture right foot with normal maximino but likely polymicrobial infection - monitor labs, recent chest x-ray negative - d/w Dr. Mcfadden, surgery and podiatry f/u - diflucan for 5 days for persistent fungal uti - ID consult appreciated -General surgery consult appreciated #Uncontrolled DM II - A1c 9-->insulin sliding scale ac/hs, change to resistant scale, fsbg controlled #Parkinson's disease #Dementia - c/w PD regimen - supportive care - delirium precautions #NSTEMI #HFpEF #HTN - heparin gtt per acs protocol, DC per cards, no chest pain, stable troponin. Continue ASA, beta lisbeth (Lopressor 25), hold off on statin due to rhabdomyolysis. Decreased Lopressor to 12.5 mg bid due to low heart rate, eventually had to stop due to bradycardia on 08/29 - trend tn/ekg - s/p lasix 40 mg BID -Echocardiogram Nl EF -continue amlodipine - cardiology consult appreciated #OWEN due to ATN resolved avoid nephrotoxin medications #Hypokalemia #Hypernatremia resolved Replace as needed -discussed goals of care with family at bedside 09/15/2019 Time spent on patient care, 37 mins, >50% on counseling and coordination of care Time of this note may not reflect the time of the clinical encounter. Subjective Date patient seen: Sep 20, 2019 ROS Limited/Unobtainable: Yes Allergies: Coded Allergies: No Known Allergies (Unverified , 10/23/13) Subjective poor historian. following up for severe sepsis, streptococcus agalactiae - group b bacteremia, endocarditis ruled out by ERIBERTO , esbl e.coli uti, sirs, leukocytosis, ? hcap/aspiration vs pulmonary edema, left foot great toe/1st toe wound infection - MRI c/w osteomyelitis, elevated sed rate, however CRP with improvement Objective Last 24 Hour Vital Signs Date Time Temp Pulse Resp B/P (MAP) Pulse Ox O2 Delivery O2 Flow Rate FiO2 09/20/19 09:00 Room Air 09/20/19 09:00 90 125/62 09/20/19 08:00 97.2 90 18 125/62 (83) 98 09/20/19 04:00 97.8 86 22 125/61 (82) 95 09/20/19 00:00 98.6 80 21 117/57 (77) 95 09/19/19 21:00 Room Air 09/19/19 20:00 98.2 81 21 123/55 (77) 98 09/19/19 16:00 98.1 85 18 140/58 (85) 97 09/19/19 12:00 97.8 68 18 110/65 (80) 98 Intake and Output 09/19/19 09/20/19 19:00 07:00 Intake Total 1310 ml 360 ml Output Total 450 ml Balance 1310 ml -90 ml Intake Oral 900 ml IV Total 410 ml 360 ml Output Urine Total 450 ml # Voids 1 Laboratory Tests 09/19/19 20:30: Vancomycin Level Trough 20.5H 09/20/19 06:13: White Blood Count 8.5, Red Blood Count 2.87L, Hemoglobin 7.7L, Hematocrit 23.9L , Mean Corpuscular Volume 83, Mean Corpuscular Hemoglobin 26.7L, Mean Corpuscular Hemoglobin Concent 32.2, Red Cell Distribution Width 15.5H, Platelet Count 449, Mean Platelet Volume 5.4L, Neutrophils (%) (Auto) , Lymphocytes (%) (Auto) , Monocytes (%) (Auto) , Eosinophils (%) (Auto) , Basophils (%) (Auto) , Differential Total Cells Counted 100, Neutrophils % ( Manual) 66, Lymphocytes % (Manual) 22, Monocytes % (Manual) 12H, Eosinophils % ( Manual) 0, Basophils % (Manual) 0, Band Neutrophils 0, Platelet Estimate Adequate, Platelet Morphology Normal, Hypochromasia 1+, Anisocytosis 1+, Sodium Level 142, Potassium Level 3.6, Chloride Level 108H, Carbon Dioxide Level 22, Anion Gap 12, Blood Urea Nitrogen 8, Creatinine 0.9, Estimat Glomerular Filtration Rate 59.4, Glucose Level 134H, Calcium Level 8.6, Total Bilirubin 0.4 , Aspartate Amino Transf (AST/SGOT) 17, Alanine Aminotransferase (ALT/SGPT) 7L, Alkaline Phosphatase 68, Total Protein 7.4, Albumin 2.1L, Globulin 5.3, Albumin/ Globulin Ratio 0.4L Height (Feet): 5 Height (Inches): 3.00 Weight (Pounds): 127 Objective General Appearance: WD/WN, no apparent distress, awake, confused HEENT: normocephalic, atraumatic, PERRL, EOMI, supple, no JVD Neck: non-tender, normal alignment, supple Respiratory/Chest: chest wall non-tender, lungs clear, normal breath sounds, no respiratory distress, no accessory muscle use Cardiovascular/Chest: normal peripheral pulses, normal rate, regular rhythm, no gallop/murmur, no JVD Abdomen: non tender, soft, no organomegaly Extremities: no edema, no cyanosis Neurologic: disoriented Skin: +debuts, + left foot/1st toe ulcer/Eschar. Chago Lyons M.D. Sep 20, 2019 11:26
[2019-09-20 12:00] VITALS: BP 116/61
--- NOTE | 2019-09-20 14:47 | NUR ---
CASE MANAGEMENT:REVIEW SI;SEPSIS. BATEREMIA. OWEN. 98.2 90 22 140/58 94% ON RA H/H 7.7/23.9 IS;VANCOMYCIN IV Q24 HRS CEFEPIME IV Q24 HRS FLAGYL PO Q8 HRS SANTYL TOP QD MED SURG STATUS DCP;FROM HOME
--- NOTE | 2019-09-20 15:13 | Surgery Progress Note ---
Surgery Progress Note Subjective Symptoms: other Objective Last 24 Hour Vital Signs Date Time Temp Pulse Resp B/P (MAP) Pulse Ox O2 Delivery O2 Flow Rate FiO2 09/20/19 12:00 98.0 84 18 116/61 (79) 94 09/20/19 09:00 Room Air 09/20/19 09:00 90 125/62 09/20/19 08:00 97.2 90 18 125/62 (83) 98 09/20/19 04:00 97.8 86 22 125/61 (82) 95 09/20/19 00:00 98.6 80 21 117/57 (77) 95 09/19/19 21:00 Room Air 09/19/19 20:00 98.2 81 21 123/55 (77) 98 09/19/19 16:00 98.1 85 18 140/58 (85) 97 I&O Intake and Output 09/19/19 09/20/19 19:00 07:00 Intake Total 1310 ml 360 ml Output Total 450 ml Balance 1310 ml -90 ml Intake Oral 900 ml IV Total 410 ml 360 ml Output Urine Total 450 ml # Voids 1 Dressing: dry, other Wound: clean, other Drains: other Cardiovascular: RSR, other Respiratory: decreased breath sounds, other Abdomen: soft, non-tender, present bowel sounds Extremities: no tenderness, no cyanosis, other Laboratory Tests Test 09/19/19 20:30 09/20/19 06:13 Vancomycin Level Trough 20.5 ug/mL (5.0-12.0) H White Blood Count 8.5 K/UL (4.8-10.8) Red Blood Count 2.87 M/UL (4.20-5.40) L Hemoglobin 7.7 G/DL (12.0-16.0) L Hematocrit 23.9 % (37.0-47.0) L Mean Corpuscular Volume 83 FL (80-99) Mean Corpuscular Hemoglobin 26.7 PG (27.0-31.0) L Mean Corpuscular Hemoglobin Concent 32.2 G/DL (32.0-36.0) Red Cell Distribution Width 15.5 % (11.6-14.8) H Platelet Count 449 K/UL (150-450) Mean Platelet Volume 5.4 FL (6.5-10.1) L Neutrophils (%) (Auto) % (45.0-75.0) Lymphocytes (%) (Auto) % (20.0-45.0) Monocytes (%) (Auto) % (1.0-10.0) Eosinophils (%) (Auto) % (0.0-3.0) Basophils (%) (Auto) % (0.0-2.0) Differential Total Cells Counted 100 Neutrophils % (Manual) 66 % (45-75) Lymphocytes % (Manual) 22 % (20-45) Monocytes % (Manual) 12 % (1-10) H Eosinophils % (Manual) 0 % (0-3) Basophils % (Manual) 0 % (0-2) Band Neutrophils 0 % (0-8) Platelet Estimate Adequate Platelet Morphology Normal Hypochromasia 1+ Anisocytosis 1+ Sodium Level 142 MMOL/L (136-145) Potassium Level 3.6 MMOL/L (3.5-5.1) Chloride Level 108 MMOL/L (98-107) H Carbon Dioxide Level 22 MMOL/L (21-32) Anion Gap 12 mmol/L (5-15) Blood Urea Nitrogen 8 mg/dL (7-18) Creatinine 0.9 MG/DL (0.55-1.30) Estimat Glomerular Filtration Rate 59.4 mL/min (>60) Glucose Level 134 MG/DL (74-106) H Calcium Level 8.6 MG/DL (8.5-10.1) Total Bilirubin 0.4 MG/DL (0.2-1.0) Aspartate Amino Transf (AST/SGOT) 17 U/L (15-37) Alanine Aminotransferase (ALT/SGPT) 7 U/L (12-78) L Alkaline Phosphatase 68 U/L (46-116) Total Protein 7.4 G/DL (6.4-8.2) Albumin 2.1 G/DL (3.4-5.0) L Globulin 5.3 g/dL Albumin/Globulin Ratio 0.4 (1.0-2.7) L Plan Problems: (1) Decubitus skin ulcer Assessment & Plan: Base of sacral wound is 90% soft necrosis with surrounding moist erythematous margins.Wound is malodorous Periwound is erythematous without induration or elevation in skin temp.(L)8cm x (W)10.5cm. Darker skin tone noted to R and L ischium. Unstageable pressure injury noted L hip Base of wound 90% necrotic cap that is semi-detached at edges,Oozing small amt brown exudate. Remaining 10% of wound is moist and martha . Edges are erythematous and flat.Wound is malodorous. Periwound is erythematous and indurated. No elevation in skin temp. (L)2.5cm x ( W)1.9cm. Two small dark skin pigmentations R Hip that are in close proximity. NO erythema or induration noted. L foot edematous. Dorsal aspect of L foot is dusky. Necrotic ulcer L hallux /L 1st metatarsal (L)3.7cm x (W)5.2cm.Edges are moist and erythematous. Wound is malodorous. Small amt brown exudate noted. Periwound including L st metatarsal is dusky and fluctuant. L heel is fluctuant with non-blanching erythema. Stable dry eschar noted to distal /lateral R foot. Periwound without erythema, induration or fluctuance.(L)0.4cm x (W)0.3cm. Stable dry eschar noted to lateral R 5th metatarsal.(L)0.3cm x (W)0.3cm. NO erythema,induration or fluctuance periwound. R heel is boggy with non-blanching erythema. change Tx orders for Sacrum and L hip to Santyl Moist gauze daily and prn. Primary nurse is aware and orders changed. left foot improving no drainage now Tx.Plan: Cleanse Sacral wound with Saline. Apply Nickel thick Layer Santyl with Saline moistened Gauze. Apply Moisture Barrier Paste periwound. Cover with Optifoam drsg. Daily and prn. Cleanse L hip wound with Saline. Apply Nickel Thick layer of Santyl with Saline Moistened Gauze. Apply Moisture Barrier Paste periwound. Cover with Optifoam drsg.Daily and prn. Cleanse Wound L Hallux with Saline. Apply Nickel thick Layer Santyl with Saline moistened gauze. Cover with ABD Pad and wrap with Kerlix Daily and prn. Apply Cavilon Skin Barrier to Distal/Lateral R foot /R 5th metatarsal Daily. Apply Cavilon SKin Barrier to both heels. Cover each heel with Optifoam drsg. Change every 7 days and prn. Apply Cavilon Skin Barrier to R hip. Cover with Optifoam drsg. Change every 7 days and prn. APM/YURIY Mattress overlay. Reposition at least every 2hours or as tolerated. Off-load heels with pillow. (2) Sepsis Assessment & Plan: Leukocytosis, abnormal labs, tachycardic, per report fevers UA identified urosepsis bacteremic leukocytosis resolved improving overall anemia fevers resolved On antibiotics as per infectious disease Trend labs Okay for diet A.m. labs Wounds unlikely etiology of sepsis as they are chronic and do not look actively infected discussed with medical teams discussed with podiatry plan for abx d/c planning cont abx oral for d/c outpatient wound care follow up We will follow with recommendations thank you for let me participate in patient' s care Darrius Miller Sep 20, 2019 15:13
[2019-09-20 16:00] VITALS: BP 118/50
--- NOTE | 2019-09-20 18:06 | Infectious Diseases Prog Note ---
Assessment/Plan Assessment/Plan ASSESSMENT AND PLAN: 1. streptococcus agalactiae - group b bacteremia, ? endocarditis, esbl e.coli uti, sirs, leukocytosis, ? pna on chest x-ray - ? hcap/aspiration vs pulmonary edema, left foot great toe/1st toe wound infection - MRI c/w osteomyelitis, elevated sed rate f/u urine culture with persistent yeast - vancomycin, cefepime, flagyl - day # 28 of abx, will need 6 weeks treatment for osteomyelitis - CRP improved significantly - 20.6 to 8.7, sed rate still elevated - ERIBERTO negative for vegetation, s/p tx for bacteremia - wound culture right foot with normal maximino but likely polymicrobial infection - monitor labs, recent chest x-ray negative - surgery note reviewed - left foot improving - finish diflucan 2. Acute kidney injury with elevated creatinine. 3. History of diabetes. 4. weakness 5. Blood pressure treatment per primary care team and diabetes treatment per primary care team and consultants. 6. Parkinson's. 7. Dementia. 8. The patient does have also elevated troponin. Cardiology follow-up. 9. MAR was noted. 10. Case was discussed with RN. 11. No known allergies. 12. Social history is negative. 13. Family history is noncontributory. 14. Continue treatment per primary consultants. 15. Orders were noted and entered. Subjective Constitutional: Denies: fever Respiratory: Denies: shortness of breath Cardiovascular: Denies: chest pain Gastrointestinal/Abdominal: Denies: nausea, vomiting, diarrhea Genitourinary: Reports: other - no arnold Neurologic: Denies: headache Psychiatric: Denies: depression Skin: Denies: rash Hematologic: Denies: bleeding Musculoskeletal: Denies: pain Allergies: Coded Allergies: No Known Allergies (Unverified , 10/23/13) Objective Vital Signs Last 24 Hour Vital Signs Date Time Temp Pulse Resp B/P (MAP) Pulse Ox O2 Delivery O2 Flow Rate FiO2 09/20/19 16:00 98.3 88 18 118/50 (72) 95 09/20/19 12:00 98.0 84 18 116/61 (79) 94 09/20/19 09:00 Room Air 09/20/19 09:00 90 125/62 09/20/19 08:00 97.2 90 18 125/62 (83) 98 09/20/19 04:00 97.8 86 22 125/61 (82) 95 09/20/19 00:00 98.6 80 21 117/57 (77) 95 09/19/19 21:00 Room Air 09/19/19 20:00 98.2 81 21 123/55 (77) 98 Height (Feet): 5 Height (Inches): 3.00 Weight (Pounds): 127 General Appearance: no acute distress HEENT: normocephalic, atraumatic, anicteric, mucous membranes moist Respiratory/Chest: lungs clear, normal breath sounds, no respiratory distress, no accessory muscle use Cardiovascular: normal rate, regular rhythm, no gallop/murmur, no JVD Abdomen: normal bowel sounds, soft, non tender, no organomegaly, non distended Genitourinary: other - + arnold - urine slt cloudy Extremities: no cyanosis Skin: no rash Neurologic/Psychiatric: needle valve operator II-XII grossly normal, 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 Pleural space: Unremarkable. No pneumothorax. Heart: Borderline cardiomegaly, potentially exaggerated by portable technique. Mediastinum: Calcified aorta. Bones/joints: Osteopenia. Degenerative changes. IMPRESSION: Mild vascular congestion CT abdomen: Impression: Anasarca, as described, with generalized edema of subcutaneous abdominal fat, moderate-sized bilateral pleural effusions, pulmonary interstitial and airspace edema Compressive atelectasis of the lower lobes due to the pleural fluid Evidence of rectal fecal impaction and possible stercoral proctitis Pessary, likely malpositioned, as described. There is evidence of bladder floor relaxation despite the pessary Dilated extrahepatic bile ducts. Most likely related to patient's age as no downstream obstructive lesion is demonstrated. However, correlation with liver function tests is recommended, with consideration for MRCP if clinically indicated Questionable slight retrococcygeal decubitus changes. Correlate with findings Other findings as noted, including evidence of prior renal cortical scarring, Arnold catheter, uterine arcuate artery calcifications Chest x-ray - 09/05/19 - Indication: Cough Technique: One view of the chest Comparison: 08/24/2019 Findings: There is increased interstitial edema. There is evidence of left perihilar airspace disease There is suggestion of trace bilateral pleural effusions. The heart size is upper limits normal. Impression: Increased interstitial edema, since prior exam 08/24/2019 Suspect left perihilar consolidation Small bilateral pleural effusions Chest x-ray - 09/07/19 - IMPRESSION: 1. Interval mild improvement in the diffusely increased interstitial markings compared to the prior exam, suggesting improved pulmonary interstitial edema. 2. Linear atelectasis at the periphery of the left mid lung. 3. Possible small left pleural effusion. MRI left foot: IMPRESSION: Evidence of acute osteomyelitis involving the hallux as described above. Cellulitis. Microbiology Date/Time Source Procedure Growth Status 09/03/19 21:00 Blood Blood Culture - Final NO GROWTH AFTER 5 DAYS Complete 09/12/19 14:45 Indwelling Cath Urine Culture - Final Nehal Albicans Complete 09/07/19 13:12 Foot Left Gram Stain - Final Complete 09/07/19 13:12 Wound Culture - Final Usual Skin Maximino Complete Laboratory Tests Test 09/19/19 20:30 09/20/19 06:13 Vancomycin Level Trough 20.5 ug/mL (5.0-12.0) H White Blood Count 8.5 K/UL (4.8-10.8) Red Blood Count 2.87 M/UL (4.20-5.40) L Hemoglobin 7.7 G/DL (12.0-16.0) L Hematocrit 23.9 % (37.0-47.0) L Mean Corpuscular Volume 83 FL (80-99) Mean Corpuscular Hemoglobin 26.7 PG (27.0-31.0) L Mean Corpuscular Hemoglobin Concent 32.2 G/DL (32.0-36.0) Red Cell Distribution Width 15.5 % (11.6-14.8) H Platelet Count 449 K/UL (150-450) Mean Platelet Volume 5.4 FL (6.5-10.1) L Neutrophils (%) (Auto) % (45.0-75.0) Lymphocytes (%) (Auto) % (20.0-45.0) Monocytes (%) (Auto) % (1.0-10.0) Eosinophils (%) (Auto) % (0.0-3.0) Basophils (%) (Auto) % (0.0-2.0) Differential Total Cells Counted 100 Neutrophils % (Manual) 66 % (45-75) Lymphocytes % (Manual) 22 % (20-45) Monocytes % (Manual) 12 % (1-10) H Eosinophils % (Manual) 0 % (0-3) Basophils % (Manual) 0 % (0-2) Band Neutrophils 0 % (0-8) Platelet Estimate Adequate Platelet Morphology Normal Hypochromasia 1+ Anisocytosis 1+ Sodium Level 142 MMOL/L (136-145) Potassium Level 3.6 MMOL/L (3.5-5.1) Chloride Level 108 MMOL/L (98-107) H Carbon Dioxide Level 22 MMOL/L (21-32) Anion Gap 12 mmol/L (5-15) Blood Urea Nitrogen 8 mg/dL (7-18) Creatinine 0.9 MG/DL (0.55-1.30) Estimat Glomerular Filtration Rate 59.4 mL/min (>60) Glucose Level 134 MG/DL (74-106) H Calcium Level 8.6 MG/DL (8.5-10.1) Total Bilirubin 0.4 MG/DL (0.2-1.0) Aspartate Amino Transf (AST/SGOT) 17 U/L (15-37) Alanine Aminotransferase (ALT/SGPT) 7 U/L (12-78) L Alkaline Phosphatase 68 U/L (46-116) Total Protein 7.4 G/DL (6.4-8.2) Albumin 2.1 G/DL (3.4-5.0) L Globulin 5.3 g/dL Albumin/Globulin Ratio 0.4 (1.0-2.7) L Current Medications Medications (Trade) Dose Ordered Sig/Krystin Route PRN Reason Start Time Stop Time Status Last Admin Dose Admin Acetaminophen (Tylenol) 650 mg Q4H PRN ORAL Mild Pain/Temp > 100.5 09/11/19 18:45 09/24/19 18:44 Amlodipine Besylate (Norvasc) 5 mg DAILY ORAL 09/12/19 09:00 09/28/19 08:59 09/18/19 08:48 Aspirin (ASA) 81 mg DAILY ORAL 09/12/19 09:00 09/24/19 08:59 09/20/19 09:16 Carbidopa/Levodopa (Sinemet 10/100) 1 tab THREE TIMES A DAY ORAL 09/12/19 09:00 09/24/19 08:59 09/20/19 17:06 Cefepime HCl 2 gm/ Sodium Chloride 110 ml @ 220 mls/hr Q24H IVPB 09/16/19 21:00 10/04/19 23:59 09/19/19 21:18 Collagenase (Santyl) 1 applic DAILY TOPIC 09/12/19 09:00 10/06/19 16:59 09/20/19 09:18 Dextrose (Dextrose 50%) 25 ml Q30M PRN IV Hypoglycemia 09/11/19 18:45 09/23/19 19:14 09/11/19 22:07 Dextrose (Dextrose 50%) 50 ml Q30M PRN IV Hypoglycemia 09/11/19 18:45 09/23/19 19:14 Insulin Aspart (NovoLOG) BEFORE MEALS AND HS SUBQ 09/11/19 21:00 09/29/19 20:59 09/20/19 12:29 Metronidazole (Flagyl) 500 mg Q8H ORAL 09/13/19 01:00 10/04/19 23:59 09/20/19 17:07 Sodium Chloride 1,000 ml @ 30 mls/hr Q24H IV 09/11/19 18:45 10/08/19 16:44 09/20/19 17:07 Vancomycin HCl (Vanco rx to dose) 1 ea DAILY PRN MISC Per rx protocol 09/12/19 08:45 10/12/19 08:44 Vancomycin HCl 750 mg/Sodium Chloride 275 ml @ 183.333 mls/hr Q24H IVPB 09/20/19 05:00 10/04/19 23:59 09/20/19 05:45 Gerardo Toledo MD Sep 20, 2019 18:06
--- NOTE | 2019-09-20 19:36 | NUR ---
HAND-OFF: Report given to Anthony QUIROS.Endorsed that patient is a fall risk, and to frequently round. Bed in lowest position, alarmed, and locked. Sign posted on door.
--- NOTE | 2019-09-20 19:40 | NUR ---
NURSE NOTES: Pt. received from ISHAAN Gatica. Pt. sleeping at this time, breathing is even and unlabored. Buckner intact, draining yellow urine well. IV left forearm 20g asymptomatic, intact, and patent; NS 30cc/hr. Endorsed pt. is a fall risk, will continue with frequent roundings per protocol. Bed is low and locked, side rails x2 up, bed alarm is active zone 2, and call light is in reach. Will continue to monitor.
[2019-09-20 20:00] VITALS: BP 129/54
[2019-09-20] MEDS: Cefepime HCl 2 GM in NS 110 ML IVPB SCH (20:54)
[2019-09-21] VITALS: BP 132/61
[2019-09-21] MEDS: metroNIDAZOLE 500mg tab ORAL SCH ×3 (01:25→17:10)
[2019-09-21 04:00] VITALS: BP 127/56
[2019-09-21] MEDS: Vancomycin 750 MG in NS 275 ML IVPB SCH (05:25)
[2019-09-21] MEDS: NovoLOG Insulin Flexpen SUBQ SCH ×4 (06:30→20:25)
--- NOTE | 2019-09-21 07:20 | NUR ---
HAND-OFF: Report given to ISHAAN Fortune. Pt. endorsed as high fall risk and to continue frequent rounding per protocol.
--- NOTE | 2019-09-21 07:25 | NUR ---
NURSE NOTES: received report from ISHAAN Cruz. patient in bed. alert. disoriented. verbally responsive. limited verbal communication d/t impaired cognition. no respiratory distress noted. no facial grimacing noted. IV on ANH 20 running NS 30/hr. p200 mattress for wound management. f/c draining. yellow. no odor. contact isolation. PPE at all times. the bed in the lowest position and locked. call light within reach. alarm on. will continue to provide plan of care.
[2019-09-21 08:00] VITALS: BP 130/59
[2019-09-21] MEDS: Levodopa/Carbidopa 10/100 tab ORAL SCH ×3 (08:50→17:10)
[2019-09-21] MEDS: Aspirin Baby 81mg ORAL SCH (08:50)
--- NOTE | 2019-09-21 10:34 | Cardiac Electrophysiology PN ---
Assessment/Plan Assessment/Plan 1. Elevated troponin due to renal failure with creatinine 1.7. Troponins low level between 0.5 and 0.7. No CP. ECG LBBB Nl EF and no vegetations. On aspirin. Off statin for rhabdomyolysis. Off beta lisbeth for bradycardia 2. Hypertension. On Norvasc 5 3. LBBB and sinus dorian in 30s. Resolved off Lopressor 4. Nonsustained VT. 5. Heart failure. BNP of more than 24,000. Echo Nl EF. Could be HFpEF 6. Urinary tract infection, on IV antibiotic. 7. 4/4 Strep Bacteremia with WBC 25K. Down to 6 K. No endocarditis. ERIBERTO on 09/10/19 no vegetation. On Iv Abx 8. S/P Renal failure. Resolved 9. Uncontrolled diabetes 10. Left toe diabetic ulcer. On iv Abx. Podiatry following CLEM RN Subjective Subjective On iv Abx and daily foot dressing change awaiting placement Objective Last 24 Hour Vital Signs Date Time Temp Pulse Resp B/P (MAP) Pulse Ox O2 Delivery O2 Flow Rate FiO2 09/21/19 09:00 Room Air 09/21/19 08:51 77 130/59 09/21/19 08:00 98.3 77 20 130/59 (82) 97 09/21/19 04:00 97.5 75 21 127/56 (79) 96 09/21/19 00:00 97.9 76 21 132/61 (84) 98 09/20/19 21:00 Room Air 09/20/19 20:00 98.5 79 21 129/54 (79) 97 09/20/19 16:00 98.3 88 18 118/50 (72) 95 09/20/19 12:00 98.0 84 18 116/61 (79) 94 Intake and Output 09/20/19 09/21/19 19:00 07:00 Intake Total 570 ml 30 ml Output Total 600 ml 350 ml Balance -30 ml -320 ml Intake Oral 240 ml IV Total 330 ml 30 ml Output Urine Total 600 ml 350 ml # Voids 1 Objective HEAD AND NECK: No JVD LUNGS: Clear. CARDIOVASCULAR: Regular S1 and S2 with no gallop or murmur. ABDOMEN: Soft. EXTREMITIES: Left toe ulcer covered with dressing Luis Purdy MD Sep 21, 2019 10:34
[2019-09-21 12:00] VITALS: BP 136/62
--- NOTE | 2019-09-21 15:10 | Surgery Progress Note ---
Surgery Progress Note Subjective Additional Comments no acute events Objective Last 24 Hour Vital Signs Date Time Temp Pulse Resp B/P (MAP) Pulse Ox O2 Delivery O2 Flow Rate FiO2 09/21/19 12:00 98.5 88 20 136/62 (86) 98 09/21/19 09:00 Room Air 09/21/19 08:51 77 130/59 09/21/19 08:00 98.3 77 20 130/59 (82) 97 09/21/19 04:00 97.5 75 21 127/56 (79) 96 09/21/19 00:00 97.9 76 21 132/61 (84) 98 09/20/19 21:00 Room Air 09/20/19 20:00 98.5 79 21 129/54 (79) 97 09/20/19 16:00 98.3 88 18 118/50 (72) 95 I&O Intake and Output 09/20/19 09/21/19 19:00 07:00 Intake Total 570 ml 213.333 ml Output Total 600 ml 350 ml Balance -30 ml -136.667 ml Intake Oral 240 ml IV Total 330 ml 213.333 ml Output Urine Total 600 ml 350 ml # Voids 1 Dressing: other Wound: other Drains: other Cardiovascular: RSR Respiratory: decreased breath sounds Abdomen: soft, present bowel sounds Extremities: no cyanosis Plan Problems: (1) Decubitus skin ulcer Assessment & Plan: Base of sacral wound is 90% soft necrosis with surrounding moist erythematous margins.Wound is malodorous Periwound is erythematous without induration or elevation in skin temp.(L)8cm x (W)10.5cm. Darker skin tone noted to R and L ischium. Unstageable pressure injury noted L hip Base of wound 90% necrotic cap that is semi-detached at edges,Oozing small amt brown exudate. Remaining 10% of wound is moist and martha . Edges are erythematous and flat.Wound is malodorous. Periwound is erythematous and indurated. No elevation in skin temp. (L)2.5cm x ( W)1.9cm. Two small dark skin pigmentations R Hip that are in close proximity. NO erythema or induration noted. L foot edematous. Dorsal aspect of L foot is dusky. Necrotic ulcer L hallux /L 1st metatarsal (L)3.7cm x (W)5.2cm.Edges are moist and erythematous. Wound is malodorous. Small amt brown exudate noted. Periwound including L st metatarsal is dusky and fluctuant. L heel is fluctuant with non-blanching erythema. Stable dry eschar noted to distal /lateral R foot. Periwound without erythema, induration or fluctuance.(L)0.4cm x (W)0.3cm. Stable dry eschar noted to lateral R 5th metatarsal.(L)0.3cm x (W)0.3cm. NO erythema,induration or fluctuance periwound. R heel is boggy with non-blanching erythema. change Tx orders for Sacrum and L hip to Santyl Moist gauze daily and prn. Primary nurse is aware and orders changed. left foot improving no drainage now Tx.Plan: Cleanse Sacral wound with Saline. Apply Nickel thick Layer Santyl with Saline moistened Gauze. Apply Moisture Barrier Paste periwound. Cover with Optifoam drsg. Daily and prn. Cleanse L hip wound with Saline. Apply Nickel Thick layer of Santyl with Saline Moistened Gauze. Apply Moisture Barrier Paste periwound. Cover with Optifoam drsg.Daily and prn. Cleanse Wound L Hallux with Saline. Apply Nickel thick Layer Santyl with Saline moistened gauze. Cover with ABD Pad and wrap with Kerlix Daily and prn. Apply Cavilon Skin Barrier to Distal/Lateral R foot /R 5th metatarsal Daily. Apply Cavilon SKin Barrier to both heels. Cover each heel with Optifoam drsg. Change every 7 days and prn. Apply Cavilon Skin Barrier to R hip. Cover with Optifoam drsg. Change every 7 days and prn. APM/YURIY Mattress overlay. Reposition at least every 2hours or as tolerated. Off-load heels with pillow. (2) Sepsis Assessment & Plan: Leukocytosis, abnormal labs, tachycardic, per report fevers UA identified urosepsis bacteremic leukocytosis resolved improving overall anemia fevers resolved On antibiotics as per infectious disease Trend labs Okay for diet A.m. labs Wounds unlikely etiology of sepsis as they are chronic and do not look actively infected discussed with medical teams discussed with podiatry plan for abx d/c planning cont abx oral for d/c outpatient wound care follow up We will follow with recommendations thank you for let me participate in patient' s care Darrius Miller Sep 21, 2019 15:09
[2019-09-21 16:00] VITALS: BP 144/65
--- NOTE | 2019-09-21 17:41 | General Progress Note ---
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, Healing well #Peripheral Vascular/Arterial Dx #Group B strep Bacteremia , s/p Tx, ERIBERTO negative for vegetation or endocarditis #ESBL Ecoli UTI, + Yeast as well #NSTEMI, S/P Heparin gtt, now on ASA , BB, Norvasc; Monitor for Markell-Inh, Avoiding statin as patient had Transaminitis #OWEN #DM II, uncontrolled Plan Consults include ID, Cardio Surgery Based on Cx, patient will require 6 weeks of IV AB w/ Vanco, Cefepime, Flagyl IV ( does not qualify for HH)--> Fluconazole for yeast Monitor renal function, avoid nephrotoxic Drugs Meds per above Weight based insulin dosing, goal blood sugar less than 160 while in patient for optimal infection management Diet and Tolerated DVT ppx Subjective Date patient seen: Sep 21, 2019 Time patient seen: 10:00 Allergies: Coded Allergies: No Known Allergies (Unverified , 10/23/13) Subjective Patient is doing well. She was sleeping when visited, in no acute distress. When I woke her up , she endorsed no issues. Foot warm, appears to be healing well Objective Last 24 Hour Vital Signs Date Time Temp Pulse Resp B/P (MAP) Pulse Ox O2 Delivery O2 Flow Rate FiO2 09/21/19 16:00 98.3 90 20 144/65 (91) 98 09/21/19 12:00 98.5 88 20 136/62 (86) 98 09/21/19 09:00 Room Air 09/21/19 08:51 77 130/59 09/21/19 08:00 98.3 77 20 130/59 (82) 97 09/21/19 04:00 97.5 75 21 127/56 (79) 96 09/21/19 00:00 97.9 76 21 132/61 (84) 98 09/20/19 21:00 Room Air 09/20/19 20:00 98.5 79 21 129/54 (79) 97 Intake and Output 09/20/19 09/21/19 19:00 07:00 Intake Total 570 ml 213.333 ml Output Total 600 ml 350 ml Balance -30 ml -136.667 ml Intake Oral 240 ml IV Total 330 ml 213.333 ml Output Urine Total 600 ml 350 ml # Voids 1 Height (Feet): 5 Height (Inches): 3.00 Weight (Pounds): 127 General Appearance: WD/WN EENT: PERRL/EOMI Cardiovascular: normal rate, regular rhythm Respiratory/Chest: lungs clear, normal breath sounds Abdomen: non tender, soft Extremities: other - Osteo of foot, however warm to touch, bandage clean dry , intact, pulse WNL Neurologic: c architect II-XII grossly normal Skin: other - see Mita Vallecillo D.O. Sep 21, 2019 17:41
--- NOTE | 2019-09-21 19:11 | NUR ---
HAND-OFF: Report given to ISHAAN Cruz.
--- NOTE | 2019-09-21 19:15 | NUR ---
NURSE NOTES: Pt. received from ISHAAN Fortune. Pt. AAOx1, on room air, breathing is even and unlabored. Buckner intact, draining yellow urine well. IV left forearm 20g asymptomatic, intact, and patent; NS 30cc/hr. Endorsed pt. is a fall risk, will continue with frequent roundings per protocol, yellow gown on and fall risk sign on door. Bed is low and locked, side rails x2 up, bed alarm is active zone 2, and call light is in reach. Will continue to monitor.
[2019-09-21 20:00] VITALS: BP 127/52
[2019-09-21] MEDS: Cefepime HCl 2 GM in NS 110 ML IVPB SCH (20:26)
[2019-09-22] VITALS: BP 118/90
[2019-09-22] MEDS: metroNIDAZOLE 500mg tab ORAL SCH ×3 (01:15→17:02)
[2019-09-22 04:00] VITALS: BP 125/58
[2019-09-22] MEDS: Vancomycin 750 MG in NS 275 ML IVPB SCH (04:40)
[2019-09-22] MEDS: NovoLOG Insulin Flexpen SUBQ SCH ×4 (06:30→20:52)
--- NOTE | 2019-09-22 07:25 | NUR ---
HAND-OFF: Report given to ISHAAN Oglesby. Pt. endorsed as high fall risk.
[2019-09-22 08:00] VITALS: BP 144/79
[2019-09-22 08:26] LABS: HEMATOCRIT 24.1 % (37.0-47.0); HEMOGLOBIN 7.8 G/DL (12.0-16.0); MEAN CORPUSCULAR VOLUME 84 FL (80-99); PLATELET COUNT 459 K/UL (150-450); RED BLOOD COUNT 2.86 M/UL (4.20-5.40); WHITE BLOOD COUNT 7.9 K/UL (4.8-10.8)
--- NOTE | 2019-09-22 08:47 | NUR ---
NURSE NOTES: Received patient report from ISHAAN Cruz. Patient in supine position, resting comfortably, respirations at 15 breaths per minute, on room air, in no apparent distress, bed in lowest position, call light within reach.
[2019-09-22 09:19] LABS: ALANINE AMINOTRANSFERASE 10 U/L (12-78); ALBUMIN 1.9 G/DL (3.4-5.0); ALBUMIN/GLOBULIN RATIO 0.3 (1.0-2.7); ALKALINE PHOSPHATASE 67 U/L (46-116); ANION GAP 12 mmol/L (5-15); ASPARTATE AMINO TRANSFERASE 19 U/L (15-37); BILIRUBIN,TOTAL 0.3 MG/DL (0.2-1.0); BLOOD UREA NITROGEN 7 mg/dL (7-18); CALCIUM 8.5 MG/DL (8.5-10.1); CARBON DIOXIDE 22 MMOL/L (21-32); CHLORIDE 109 MMOL/L (98-107); CREATININE 0.8 MG/DL (0.55-1.30); SODIUM 143 MMOL/L (136-145)
--- NOTE | 2019-09-22 09:33 | NUR ---
NURSE NOTES: Fall Agreement at [facility], patient in supine position, wearing yellow gown, yellow socks, side rails up x 3, bed in lowest position, and locked.
[2019-09-22] MEDS: Aspirin Baby 81mg ORAL SCH (09:38)
[2019-09-22] MEDS: Levodopa/Carbidopa 10/100 tab ORAL SCH ×3 (09:38→17:02)
--- NOTE | 2019-09-22 10:30 | Cardiac Electrophysiology PN ---
Assessment/Plan Assessment/Plan 1. Elevated troponin due to renal failure with creatinine 1.7. Troponins low level between 0.5 and 0.7. No CP. ECG LBBB Nl EF and no vegetations. On aspirin. Off statin for rhabdomyolysis. Off beta lisbeth for bradycardia 2. Hypertension. On Norvasc 5 3. LBBB and sinus dorian in 30s. Resolved off Lopressor 4. Nonsustained VT. 5. Acute on chronic diastolic CHF. BNP of more than 24,000. Echo Nl EF. 6. Urinary tract infection, on IV antibiotic. 7. 4/4 Strep Bacteremia with WBC 25K. Down to 6 K. No endocarditis. ERIBERTO on 09/10/19 no vegetation. On Iv Abx 8. S/P Renal failure. Resolved 9. Uncontrolled diabetes 10. Left toe diabetic ulcer. On iv Abx. CLEM RN Subjective Subjective Awaiting placement. No events on iv Abx Objective Last 24 Hour Vital Signs Date Time Temp Pulse Resp B/P (MAP) Pulse Ox O2 Delivery O2 Flow Rate FiO2 09/22/19 09:39 83 144/79 09/22/19 08:00 98.5 83 18 144/79 (100) 98 09/22/19 04:00 98.6 82 20 125/58 (80) 96 09/22/19 00:00 98.9 85 19 118/90 (99) 96 09/21/19 21:00 Room Air 09/21/19 20:00 98.2 83 18 127/52 (77) 96 09/21/19 16:00 98.3 90 20 144/65 (91) 98 09/21/19 12:00 98.5 88 20 136/62 (86) 98 Intake and Output 09/21/19 09/22/19 19:00 07:00 Intake Total 1333.333 ml 595.000 ml Output Total 800 ml 650 ml Balance 533.333 ml -55.000 ml Intake Oral 820 ml IV Total 513.333 ml 595.000 ml Output Urine Total 800 ml 650 ml # Voids 1 Laboratory Tests Test 09/22/19 06:53 White Blood Count 7.9 K/UL (4.8-10.8) Red Blood Count 2.86 M/UL (4.20-5.40) L Hemoglobin 7.8 G/DL (12.0-16.0) L Hematocrit 24.1 % (37.0-47.0) L Mean Corpuscular Volume 84 FL (80-99) Mean Corpuscular Hemoglobin 27.2 PG (27.0-31.0) Mean Corpuscular Hemoglobin Concent 32.3 G/DL (32.0-36.0) Red Cell Distribution Width 16.0 % (11.6-14.8) H Platelet Count 459 K/UL (150-450) H Mean Platelet Volume 5.6 FL (6.5-10.1) L Neutrophils (%) (Auto) % (45.0-75.0) Lymphocytes (%) (Auto) % (20.0-45.0) Monocytes (%) (Auto) % (1.0-10.0) Eosinophils (%) (Auto) % (0.0-3.0) Basophils (%) (Auto) % (0.0-2.0) Neutrophils % (Manual) Pending Lymphocytes % (Manual) Pending Platelet Estimate Pending Platelet Morphology Pending Sodium Level 143 MMOL/L (136-145) Potassium Level 4.0 MMOL/L (3.5-5.1) Chloride Level 109 MMOL/L (98-107) H Carbon Dioxide Level 22 MMOL/L (21-32) Anion Gap 12 mmol/L (5-15) Blood Urea Nitrogen 7 mg/dL (7-18) Creatinine 0.8 MG/DL (0.55-1.30) Estimat Glomerular Filtration Rate > 60 mL/min (>60) Glucose Level 108 MG/DL (74-106) H Calcium Level 8.5 MG/DL (8.5-10.1) Total Bilirubin 0.3 MG/DL (0.2-1.0) Aspartate Amino Transf (AST/SGOT) 19 U/L (15-37) Alanine Aminotransferase (ALT/SGPT) 10 U/L (12-78) L Alkaline Phosphatase 67 U/L (46-116) Total Protein 7.5 G/DL (6.4-8.2) Albumin 1.9 G/DL (3.4-5.0) L Globulin 5.6 g/dL Albumin/Globulin Ratio 0.3 (1.0-2.7) L Objective HEAD AND NECK: No JVD LUNGS: Clear. CARDIOVASCULAR: Regular S1 and S2 with no gallop or murmur. ABDOMEN: Soft. EXTREMITIES: Left toe ulcer covered with dressing Luis Purdy MD Sep 22, 2019 10:30
[2019-09-22 12:00] VITALS: BP 119/68
--- NOTE | 2019-09-22 12:39 | Surgery Progress Note ---
Surgery Progress Note Subjective Additional Comments stable Objective Last 24 Hour Vital Signs Date Time Temp Pulse Resp B/P (MAP) Pulse Ox O2 Delivery O2 Flow Rate FiO2 09/22/19 09:39 83 144/79 09/22/19 09:00 Room Air 09/22/19 08:00 98.5 83 18 144/79 (100) 98 09/22/19 04:00 98.6 82 20 125/58 (80) 96 09/22/19 00:00 98.9 85 19 118/90 (99) 96 09/21/19 21:00 Room Air 09/21/19 20:00 98.2 83 18 127/52 (77) 96 09/21/19 16:00 98.3 90 20 144/65 (91) 98 I&O Intake and Output 09/21/19 09/22/19 19:00 07:00 Intake Total 1333.333 ml 595.000 ml Output Total 800 ml 650 ml Balance 533.333 ml -55.000 ml Intake Oral 820 ml IV Total 513.333 ml 595.000 ml Output Urine Total 800 ml 650 ml # Voids 1 Dressing: dry Wound: clean Cardiovascular: RSR Respiratory: clear Abdomen: soft, non-tender, present bowel sounds Extremities: no cyanosis, other Laboratory Tests Test 09/22/19 06:53 White Blood Count 7.9 K/UL (4.8-10.8) Red Blood Count 2.86 M/UL (4.20-5.40) L Hemoglobin 7.8 G/DL (12.0-16.0) L Hematocrit 24.1 % (37.0-47.0) L Mean Corpuscular Volume 84 FL (80-99) Mean Corpuscular Hemoglobin 27.2 PG (27.0-31.0) Mean Corpuscular Hemoglobin Concent 32.3 G/DL (32.0-36.0) Red Cell Distribution Width 16.0 % (11.6-14.8) H Platelet Count 459 K/UL (150-450) H Mean Platelet Volume 5.6 FL (6.5-10.1) L Neutrophils (%) (Auto) % (45.0-75.0) Lymphocytes (%) (Auto) % (20.0-45.0) Monocytes (%) (Auto) % (1.0-10.0) Eosinophils (%) (Auto) % (0.0-3.0) Basophils (%) (Auto) % (0.0-2.0) Differential Total Cells Counted 100 Neutrophils % (Manual) 68 % (45-75) Lymphocytes % (Manual) 22 % (20-45) Monocytes % (Manual) 8 % (1-10) Eosinophils % (Manual) 1 % (0-3) Basophils % (Manual) 1 % (0-2) Band Neutrophils 0 % (0-8) Platelet Estimate Adequate Platelet Morphology Normal Hypochromasia 3+ Anisocytosis 1+ Sodium Level 143 MMOL/L (136-145) Potassium Level 4.0 MMOL/L (3.5-5.1) Chloride Level 109 MMOL/L (98-107) H Carbon Dioxide Level 22 MMOL/L (21-32) Anion Gap 12 mmol/L (5-15) Blood Urea Nitrogen 7 mg/dL (7-18) Creatinine 0.8 MG/DL (0.55-1.30) Estimat Glomerular Filtration Rate > 60 mL/min (>60) Glucose Level 108 MG/DL (74-106) H Calcium Level 8.5 MG/DL (8.5-10.1) Total Bilirubin 0.3 MG/DL (0.2-1.0) Aspartate Amino Transf (AST/SGOT) 19 U/L (15-37) Alanine Aminotransferase (ALT/SGPT) 10 U/L (12-78) L Alkaline Phosphatase 67 U/L (46-116) Total Protein 7.5 G/DL (6.4-8.2) Albumin 1.9 G/DL (3.4-5.0) L Globulin 5.6 g/dL Albumin/Globulin Ratio 0.3 (1.0-2.7) L Plan Problems: (1) Decubitus skin ulcer Assessment & Plan: Base of sacral wound is 90% soft necrosis with surrounding moist erythematous margins.Wound is malodorous Periwound is erythematous without induration or elevation in skin temp.(L)8cm x (W)10.5cm. Darker skin tone noted to R and L ischium. Unstageable pressure injury noted L hip Base of wound 90% necrotic cap that is semi-detached at edges,Oozing small amt brown exudate. Remaining 10% of wound is moist and martha . Edges are erythematous and flat.Wound is malodorous. Periwound is erythematous and indurated. No elevation in skin temp. (L)2.5cm x ( W)1.9cm. Two small dark skin pigmentations R Hip that are in close proximity. NO erythema or induration noted. L foot edematous. Dorsal aspect of L foot is dusky. Necrotic ulcer L hallux /L 1st metatarsal (L)3.7cm x (W)5.2cm.Edges are moist and erythematous. Wound is malodorous. Small amt brown exudate noted. Periwound including L st metatarsal is dusky and fluctuant. L heel is fluctuant with non-blanching erythema. Stable dry eschar noted to distal /lateral R foot. Periwound without erythema, induration or fluctuance.(L)0.4cm x (W)0.3cm. Stable dry eschar noted to lateral R 5th metatarsal.(L)0.3cm x (W)0.3cm. NO erythema,induration or fluctuance periwound. R heel is boggy with non-blanching erythema. change Tx orders for Sacrum and L hip to Santyl Moist gauze daily and prn. Primary nurse is aware and orders changed. left foot improving no drainage now Tx.Plan: Cleanse Sacral wound with Saline. Apply Nickel thick Layer Santyl with Saline moistened Gauze. Apply Moisture Barrier Paste periwound. Cover with Optifoam drsg. Daily and prn. Cleanse L hip wound with Saline. Apply Nickel Thick layer of Santyl with Saline Moistened Gauze. Apply Moisture Barrier Paste periwound. Cover with Optifoam drsg.Daily and prn. Cleanse Wound L Hallux with Saline. Apply Nickel thick Layer Santyl with Saline moistened gauze. Cover with ABD Pad and wrap with Kerlix Daily and prn. Apply Cavilon Skin Barrier to Distal/Lateral R foot /R 5th metatarsal Daily. Apply Cavilon SKin Barrier to both heels. Cover each heel with Optifoam drsg. Change every 7 days and prn. Apply Cavilon Skin Barrier to R hip. Cover with Optifoam drsg. Change every 7 days and prn. APM/YURIY Mattress overlay. Reposition at least every 2hours or as tolerated. Off-load heels with pillow. (2) Sepsis Assessment & Plan: Leukocytosis, abnormal labs, tachycardic, per report fevers UA identified urosepsis bacteremic leukocytosis resolved improving overall anemia fevers resolved On antibiotics as per infectious disease Trend labs Okay for diet A.m. labs Wounds unlikely etiology of sepsis as they are chronic and do not look actively infected discussed with medical teams discussed with podiatry plan for abx d/c planning cont abx oral for d/c outpatient wound care follow up We will follow with recommendations thank you for let me participate in patient' s care Darrius Miller Sep 22, 2019 12:39
--- NOTE | 2019-09-22 13:01 | General Progress Note ---
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, Healing well #Peripheral Vascular/Arterial Dx #Group B strep Bacteremia , s/p Tx, ERIBERTO negative for vegetation or endocarditis #ESBL Ecoli UTI, + Yeast as well #NSTEMI, S/P Heparin gtt, now on ASA , BB, Norvasc; Monitor for Markell-Inh, Avoiding statin as patient had Transaminitis #OWEN #DM II, uncontrolled #Thrombocytosis Plan Consults include ID, Cardio Surgery Based on Cx, patient will require 6 weeks of IV AB w/ Vanco, Cefepime, Flagyl IV ( does not qualify for HH)--> Fluconazole for yeast Monitor renal function, avoid nephrotoxic Drugs Meds per above Weight based insulin dosing, goal blood sugar less than 160 while in patient for optimal infection management Monitor thrombocytosis given patient has osteo Diet and Tolerated DVT ppx Subjective Date patient seen: Sep 22, 2019 Time patient seen: 12:59 Allergies: Coded Allergies: No Known Allergies (Unverified , 10/23/13) Subjective Patient is doing well. HGB is stable, do not feel blood transfusion is warranted. However platelets are climbing, monitor in light of Osteo Objective Last 24 Hour Vital Signs Date Time Temp Pulse Resp B/P (MAP) Pulse Ox O2 Delivery O2 Flow Rate FiO2 09/22/19 09:39 83 144/79 09/22/19 09:00 Room Air 09/22/19 08:00 98.5 83 18 144/79 (100) 98 09/22/19 04:00 98.6 82 20 125/58 (80) 96 09/22/19 00:00 98.9 85 19 118/90 (99) 96 09/21/19 21:00 Room Air 09/21/19 20:00 98.2 83 18 127/52 (77) 96 09/21/19 16:00 98.3 90 20 144/65 (91) 98 Intake and Output 09/21/19 09/22/19 19:00 07:00 Intake Total 1333.333 ml 595.000 ml Output Total 800 ml 650 ml Balance 533.333 ml -55.000 ml Intake Oral 820 ml IV Total 513.333 ml 595.000 ml Output Urine Total 800 ml 650 ml # Voids 1 Laboratory Tests 2/16/20 06:53: White Blood Count 7.9, Red Blood Count 2.86L, Hemoglobin 7.8L, Hematocrit 24.1L , Mean Corpuscular Volume 84, Mean Corpuscular Hemoglobin 27.2, Mean Corpuscular Hemoglobin Concent 32.3, Red Cell Distribution Width 16.0H, Platelet Count 459H, Mean Platelet Volume 5.6L, Neutrophils (%) (Auto) , Lymphocytes (%) (Auto) , Monocytes (%) (Auto) , Eosinophils (%) (Auto) , Basophils (%) (Auto) , Differential Total Cells Counted 100, Neutrophils % ( Manual) 68, Lymphocytes % (Manual) 22, Monocytes % (Manual) 8, Eosinophils % ( Manual) 1, Basophils % (Manual) 1, Band Neutrophils 0, Platelet Estimate Adequate, Platelet Morphology Normal, Hypochromasia 3+, Anisocytosis 1+, Sodium Level 143, Potassium Level 4.0, Chloride Level 109H, Carbon Dioxide Level 22, Anion Gap 12, Blood Urea Nitrogen 7, Creatinine 0.8, Estimat Glomerular Filtration Rate > 60, Glucose Level 108H, Calcium Level 8.5, Total Bilirubin 0.3 , Aspartate Amino Transf (AST/SGOT) 19, Alanine Aminotransferase (ALT/SGPT) 10L , Alkaline Phosphatase 67, Total Protein 7.5, Albumin 1.9L, Globulin 5.6, Albumin/Globulin Ratio 0.3L Height (Feet): 5 Height (Inches): 3.00 Weight (Pounds): 127 General Appearance: WD/WN EENT: PERRL/EOMI Cardiovascular: normal rate, regular rhythm Respiratory/Chest: lungs clear, normal breath sounds, no respiratory distress Abdomen: non tender, soft Extremities: other - RLE post op changes, foot wrapped and warm, c/d/i 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 Sep 22, 2019 13:01
--- NOTE | 2019-09-22 13:16 | NUR ---
RD ASSESSMENT & RECOMMENDATIONS SEE CARE ACTIVITY FOR COMPLETE ASSESSMENT DAILY ESTIMATED NEEDS: Needs based on Wounds, DM 49kg 30-35 kcals/kg 2881-8444 total kcals 1.25-2 g protein/kg 61-98 g total protein 25-30ml/kcal mL/kg 8602-3037 total fluid mLs NUTRITION DIAGNOSIS: Increased kcal and pro needs r/t wound healing as evidenced by pt w/ multiple areas of skin breakdown including unstageable L hip wounds x2, refer to WC eval for full assessment. CURRENT DIET: CCHO MED, liquify pureed moist w/ NTL PO DIET RECOMMENDATIONS: Liberalized REGULAR / texture per SKI LIFT OPERATOR ENTERAL NUTRITION RECOMMENDATIONS: REC NON ORAL FEEDS IF PART OF POC TO MEET EST NUTRITIONAL NEEDS ADDITIONAL RECOMMENDATIONS: 1) Glucerna TID w/ meals added; Encourage HD snack intake 2) Hypoglycemic episode, rec low rate D5 w/ continued fair to poor intake 3) Wound care: if tolerated ANTONIA BID + Vit C 250mg BID + MVI w/ min q daily 4) Calibrated bed scale wts daily, EMR appear stable 5) Consider appetite stimulant w/ continued poor and variable PO 6) Replete lytes as needed
[2019-09-22] MEDS ORDERED: Tubing IV Secondary IV ONE (13:51)
[2019-09-22 16:00] VITALS: BP_SYST 126; BP_SYST 147; BP_DIAS 73; BP_DIAS 79
--- NOTE | 2019-09-22 16:54 | Infectious Diseases Prog Note ---
Assessment/Plan Assessment/Plan ASSESSMENT AND PLAN: 1. streptococcus agalactiae - group b bacteremia, ? endocarditis, esbl e.coli uti, sirs, leukocytosis, ? pna on chest x-ray - ? hcap/aspiration vs pulmonary edema, left foot great toe/1st toe wound infection - MRI c/w osteomyelitis, elevated sed rate f/u urine culture with persistent yeast - vancomycin, cefepime, flagyl - day # 30 of abx, will need 6 weeks treatment for osteomyelitis - CRP improved significantly - 20.6 to 8.7, sed rate still elevated - ERIBERTO negative for vegetation, s/p tx for bacteremia - wound culture right foot with normal maximino but likely polymicrobial infection - monitor labs, recent chest x-ray negative - surgery note reviewed - left foot improving - finish diflucan 2. Acute kidney injury with elevated creatinine. 3. History of diabetes. 4. weakness 5. Blood pressure treatment per primary care team and diabetes treatment per primary care team and consultants. 6. Parkinson's. 7. Dementia. 8. The patient does have also elevated troponin. Cardiology follow-up. 9. MAR was noted. 10. Case was discussed with RN. 11. No known allergies. 12. Social history is negative. 13. Family history is noncontributory. 14. Continue treatment per primary consultants. 15. Orders were noted and entered. Subjective Constitutional: Reports: fatigue; Denies: fever HEENT: Denies: congestion Respiratory: Denies: shortness of breath Cardiovascular: Denies: chest pain Gastrointestinal/Abdominal: Denies: nausea, vomiting, diarrhea Genitourinary: Reports: other - + arnold Neurologic: Denies: headache Psychiatric: Denies: depression Skin: Denies: rash Hematologic: Denies: bleeding Musculoskeletal: Denies: pain Allergies: Coded Allergies: No Known Allergies (Unverified , 10/23/13) Objective Vital Signs Last 24 Hour Vital Signs Date Time Temp Pulse Resp B/P (MAP) Pulse Ox O2 Delivery O2 Flow Rate FiO2 09/22/19 12:00 98.3 77 18 119/68 (85) 98 09/22/19 09:39 83 144/79 09/22/19 09:00 Room Air 09/22/19 08:00 98.5 83 18 144/79 (100) 98 09/22/19 04:00 98.6 82 20 125/58 (80) 96 09/22/19 00:00 98.9 85 19 118/90 (99) 96 09/21/19 21:00 Room Air 09/21/19 20:00 98.2 83 18 127/52 (77) 96 Height (Feet): 5 Height (Inches): 3.00 Weight (Pounds): 127 General Appearance: no acute distress HEENT: normocephalic, atraumatic, anicteric, mucous membranes moist Respiratory/Chest: lungs clear, normal breath sounds, no respiratory distress, no accessory muscle use Cardiovascular: normal rate, regular rhythm, no gallop/murmur, no JVD Abdomen: normal bowel sounds, soft, non tender, no organomegaly, non distended Genitourinary: other - + arnold - urine slt cloudy Extremities: other - left foot covered Skin: no rash 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 Pleural space: Unremarkable. No pneumothorax. Heart: Borderline cardiomegaly, potentially exaggerated by portable technique. Mediastinum: Calcified aorta. Bones/joints: Osteopenia. Degenerative changes. IMPRESSION: Mild vascular congestion CT abdomen: Impression: Anasarca, as described, with generalized edema of subcutaneous abdominal fat, moderate-sized bilateral pleural effusions, pulmonary interstitial and airspace edema Compressive atelectasis of the lower lobes due to the pleural fluid Evidence of rectal fecal impaction and possible stercoral proctitis Pessary, likely malpositioned, as described. There is evidence of bladder floor relaxation despite the pessary Dilated extrahepatic bile ducts. Most likely related to patient's age as no downstream obstructive lesion is demonstrated. However, correlation with liver function tests is recommended, with consideration for MRCP if clinically indicated Questionable slight retrococcygeal decubitus changes. Correlate with findings Other findings as noted, including evidence of prior renal cortical scarring, Arnold catheter, uterine arcuate artery calcifications Chest x-ray - 09/05/19 - Indication: Cough Technique: One view of the chest Comparison: 08/24/2019 Findings: There is increased interstitial edema. There is evidence of left perihilar airspace disease There is suggestion of trace bilateral pleural effusions. The heart size is upper limits normal. Impression: Increased interstitial edema, since prior exam 08/24/2019 Suspect left perihilar consolidation Small bilateral pleural effusions Chest x-ray - 09/07/19 - IMPRESSION: 1. Interval mild improvement in the diffusely increased interstitial markings compared to the prior exam, suggesting improved pulmonary interstitial edema. 2. Linear atelectasis at the periphery of the left mid lung. 3. Possible small left pleural effusion. MRI left foot: IMPRESSION: Evidence of acute osteomyelitis involving the hallux as described above. Cellulitis. Microbiology Date/Time Source Procedure Growth Status 09/03/19 21:00 Blood Blood Culture - Final NO GROWTH AFTER 5 DAYS Complete 09/12/19 14:45 Indwelling Cath Urine Culture - Final Nehal Albicans Complete 09/07/19 13:12 Foot Left Gram Stain - Final Complete 09/07/19 13:12 Wound Culture - Final Usual Skin Maximino Complete Laboratory Tests Test 09/22/19 06:53 White Blood Count 7.9 K/UL (4.8-10.8) Red Blood Count 2.86 M/UL (4.20-5.40) L Hemoglobin 7.8 G/DL (12.0-16.0) L Hematocrit 24.1 % (37.0-47.0) L Mean Corpuscular Volume 84 FL (80-99) Mean Corpuscular Hemoglobin 27.2 PG (27.0-31.0) Mean Corpuscular Hemoglobin Concent 32.3 G/DL (32.0-36.0) Red Cell Distribution Width 16.0 % (11.6-14.8) H Platelet Count 459 K/UL (150-450) H Mean Platelet Volume 5.6 FL (6.5-10.1) L Neutrophils (%) (Auto) % (45.0-75.0) Lymphocytes (%) (Auto) % (20.0-45.0) Monocytes (%) (Auto) % (1.0-10.0) Eosinophils (%) (Auto) % (0.0-3.0) Basophils (%) (Auto) % (0.0-2.0) Differential Total Cells Counted 100 Neutrophils % (Manual) 68 % (45-75) Lymphocytes % (Manual) 22 % (20-45) Monocytes % (Manual) 8 % (1-10) Eosinophils % (Manual) 1 % (0-3) Basophils % (Manual) 1 % (0-2) Band Neutrophils 0 % (0-8) Platelet Estimate Adequate Platelet Morphology Normal Hypochromasia 3+ Anisocytosis 1+ Sodium Level 143 MMOL/L (136-145) Potassium Level 4.0 MMOL/L (3.5-5.1) Chloride Level 109 MMOL/L (98-107) H Carbon Dioxide Level 22 MMOL/L (21-32) Anion Gap 12 mmol/L (5-15) Blood Urea Nitrogen 7 mg/dL (7-18) Creatinine 0.8 MG/DL (0.55-1.30) Estimat Glomerular Filtration Rate > 60 mL/min (>60) Glucose Level 108 MG/DL (74-106) H Calcium Level 8.5 MG/DL (8.5-10.1) Total Bilirubin 0.3 MG/DL (0.2-1.0) Aspartate Amino Transf (AST/SGOT) 19 U/L (15-37) Alanine Aminotransferase (ALT/SGPT) 10 U/L (12-78) L Alkaline Phosphatase 67 U/L (46-116) Total Protein 7.5 G/DL (6.4-8.2) Albumin 1.9 G/DL (3.4-5.0) L Globulin 5.6 g/dL Albumin/Globulin Ratio 0.3 (1.0-2.7) L Current Medications Medications (Trade) Dose Ordered Sig/Krystin Route PRN Reason Start Time Stop Time Status Last Admin Dose Admin Acetaminophen (Tylenol) 650 mg Q4H PRN ORAL Mild Pain/Temp > 100.5 09/11/19 18:45 09/24/19 18:44 Amlodipine Besylate (Norvasc) 5 mg DAILY ORAL 09/12/19 09:00 09/28/19 08:59 09/22/19 09:39 Aspirin (ASA) 81 mg DAILY ORAL 09/12/19 09:00 09/24/19 08:59 09/22/19 09:38 Carbidopa/Levodopa (Sinemet 10/) 1 tab THREE TIMES A DAY ORAL 09/12/19 09:00 09/24/19 08:59 09/22/19 13:41 Cefepime HCl 2 gm/ Sodium Chloride 110 ml @ 220 mls/hr Q24H IVPB 09/16/19 21:00 10/04/19 23:59 09/21/19 20:26 Collagenase (Santyl) 1 applic DAILY TOPIC 09/12/19 09:00 10/06/19 16:59 09/22/19 09:39 Dextrose (Dextrose 50%) 25 ml Q30M PRN IV Hypoglycemia 09/11/19 18:45 09/23/19 19:14 09/11/19 22:07 Dextrose (Dextrose 50%) 50 ml Q30M PRN IV Hypoglycemia 09/11/19 18:45 09/23/19 19:14 Insulin Aspart (NovoLOG) BEFORE MEALS AND HS SUBQ 09/11/19 21:00 09/29/19 20:59 09/21/19 11:45 Metronidazole (Flagyl) 500 mg Q8H ORAL 09/13/19 01:00 10/04/19 23:59 09/22/19 09:38 Sodium Chloride 1,000 ml @ 30 mls/hr Q24H IV 09/11/19 18:45 10/08/19 16:44 09/22/19 03:42 Vancomycin HCl (Vanco rx to dose) 1 ea DAILY PRN MISC Per rx protocol 09/12/19 08:45 10/12/19 08:44 Vancomycin HCl 750 mg/Sodium Chloride 275 ml @ 183.333 mls/hr Q24H IVPB 09/20/19 05:00 10/04/19 23:59 09/22/19 04:40 Gerardo Toledo MD Sep 22, 2019 16:54
--- NOTE | 2019-09-22 19:22 | NUR ---
HAND-OFF: Report given to Anthony Issa RN. Patient sitting HOB at 45 degrees, awake and alert to name, no c/o pain, no SOB, bed in lowest position, call light within reach, IV patent in left upper arm running NS@30cc/hour, in no apparent distress.
--- NOTE | 2019-09-22 19:25 | NUR ---
NURSE NOTES: Pt. received from ISHAAN Oglesby. Pt. AAOx1, on room air, no signs of pain and no indications of respiratory distress . Buckner intact, draining yellow urine well. IV left forearm 20g asymptomatic, intact, and patent; NS 30cc/hr. Pt. is high fall risk, endorsed to continue existing fall precautions and perform frequent rounding. Bed is low and locked, side rails x2 up and padded, bed alarm is active zone 2, and call light is in reach. Will continue to monitor.
[2019-09-22 20:00] VITALS: BP 104/72
[2019-09-22] MEDS: Cefepime HCl 2 GM in NS 110 ML IVPB SCH (20:52)
[2019-09-23] VITALS: BP 125/67
[2019-09-23] MEDS: metroNIDAZOLE 500mg tab ORAL SCH ×3 (00:31→17:08)
[2019-09-23 04:00] VITALS: BP 124/63
[2019-09-23] MEDS: Vancomycin 750 MG in NS 275 ML IVPB SCH (04:23)
[2019-09-23] MEDS: NovoLOG Insulin Flexpen SUBQ SCH ×4 (05:54→20:28)
--- NOTE | 2019-09-23 07:17 | NUR ---
HAND-OFF: Report given to ISHAAN David. Pt. is high fall risk, endorsed to oncoming shift.
[2019-09-23 08:00] VITALS: BP 129/59
[2019-09-23] MEDS: Levodopa/Carbidopa 10/100 tab ORAL SCH ×3 (08:28→17:08)
[2019-09-23] MEDS: Aspirin Baby 81mg ORAL SCH (08:28)
[2019-09-23 08:48] LABS: HEMATOCRIT 24.4 % (37.0-47.0); HEMOGLOBIN 7.9 G/DL (12.0-16.0); MEAN CORPUSCULAR VOLUME 85 FL (80-99); PLATELET COUNT 442 K/UL (150-450); RED BLOOD COUNT 2.89 M/UL (4.20-5.40); RED CELL DISTRIBUTION WIDTH 16.4 % (11.6-14.8); WHITE BLOOD COUNT 9.5 K/UL (4.8-10.8)
[2019-09-23 09:18] LABS: PHOSPHORUS 2.2 MG/DL (2.5-4.9)
[2019-09-23 09:19] LABS: ALANINE AMINOTRANSFERASE 6 U/L (12-78); ALBUMIN/GLOBULIN RATIO 0.4 (1.0-2.7); ALKALINE PHOSPHATASE 66 U/L (46-116); ANION GAP 9 mmol/L (5-15); ASPARTATE AMINO TRANSFERASE 16 U/L (15-37); BILIRUBIN,TOTAL 0.4 MG/DL (0.2-1.0); BLOOD UREA NITROGEN 7 mg/dL (7-18); CALCIUM 8.5 MG/DL (8.5-10.1); CARBON DIOXIDE 25 MMOL/L (21-32); CHLORIDE 109 MMOL/L (98-107); CREATININE 0.8 MG/DL (0.55-1.30); POTASSIUM 3.5 MMOL/L (3.5-5.1); SODIUM 143 MMOL/L (136-145)
--- NOTE | 2019-09-23 10:30 | NUR ---
PT NOTE Attempted to see patient for PT treatment. Patient drowsy, unable to participate with PT at this time. Frankie QUIROS notified, will re-attempt later as schedule permits.
[2019-09-23] MEDS ORDERED: Sodium Phosphate 15 MM in NS 275 ML IVPB ONE (11:30)
[2019-09-23 12:00] VITALS: BP 107/87
--- NOTE | 2019-09-23 13:54 | Surgery Progress Note ---
Surgery Progress Note Subjective Symptoms: improved Objective Last 24 Hour Vital Signs Date Time Temp Pulse Resp B/P (MAP) Pulse Ox O2 Delivery O2 Flow Rate FiO2 09/23/19 09:00 Room Air 09/23/19 08:27 82 129/59 09/23/19 08:00 98.6 82 18 129/59 (82) 98 09/23/19 04:00 98.6 87 18 124/63 (83) 98 09/23/19 00:00 98.8 94 18 125/67 (86) 96 09/22/19 21:00 Room Air 09/22/19 20:00 98.9 89 18 104/72 (83) 96 09/22/19 16:00 98.6 81 18 126/73 (90) 97 I&O Intake and Output 09/22/19 09/23/19 19:00 07:00 Intake Total 1170 ml 610.000 ml Output Total 1000 ml 600 ml Balance 170 ml 10.000 ml Intake Oral 840 ml IV Total 330 ml 610.000 ml Output Urine Total 1000 ml 600 ml # Voids 1 Dressing: dry Wound: clean, dry Cardiovascular: RSR Respiratory: clear Abdomen: soft, non-tender, present bowel sounds Extremities: no cyanosis Laboratory Tests Test 09/23/19 07:35 White Blood Count 9.5 K/UL (4.8-10.8) Red Blood Count 2.89 M/UL (4.20-5.40) L Hemoglobin 7.9 G/DL (12.0-16.0) L Hematocrit 24.4 % (37.0-47.0) L Mean Corpuscular Volume 85 FL (80-99) Mean Corpuscular Hemoglobin 27.4 PG (27.0-31.0) Mean Corpuscular Hemoglobin Concent 32.4 G/DL (32.0-36.0) Red Cell Distribution Width 16.4 % (11.6-14.8) H Platelet Count 442 K/UL (150-450) Mean Platelet Volume 5.5 FL (6.5-10.1) L Neutrophils (%) (Auto) % (45.0-75.0) Lymphocytes (%) (Auto) % (20.0-45.0) Monocytes (%) (Auto) % (1.0-10.0) Eosinophils (%) (Auto) % (0.0-3.0) Basophils (%) (Auto) % (0.0-2.0) Differential Total Cells Counted 100 Neutrophils % (Manual) 68 % (45-75) Lymphocytes % (Manual) 26 % (20-45) Monocytes % (Manual) 5 % (1-10) Eosinophils % (Manual) 1 % (0-3) Basophils % (Manual) 0 % (0-2) Band Neutrophils 0 % (0-8) Platelet Estimate Adequate Platelet Morphology Normal Hypochromasia 1+ Anisocytosis 1+ Erythrocyte Sedimentation Rate 125 MM/HR (0-30) H Sodium Level 143 MMOL/L (136-145) Potassium Level 3.5 MMOL/L (3.5-5.1) Chloride Level 109 MMOL/L (98-107) H Carbon Dioxide Level 25 MMOL/L (21-32) Anion Gap 9 mmol/L (5-15) Blood Urea Nitrogen 7 mg/dL (7-18) Creatinine 0.8 MG/DL (0.55-1.30) Estimat Glomerular Filtration Rate > 60 mL/min (>60) Glucose Level 109 MG/DL (74-106) H Calcium Level 8.5 MG/DL (8.5-10.1) Phosphorus Level 2.2 MG/DL (2.5-4.9) L Magnesium Level 1.5 MG/DL (1.8-2.4) L Total Bilirubin 0.4 MG/DL (0.2-1.0) Aspartate Amino Transf (AST/SGOT) 16 U/L (15-37) Alanine Aminotransferase (ALT/SGPT) 6 U/L (12-78) L Alkaline Phosphatase 66 U/L (46-116) C-Reactive Protein, Quantitative 8.3 mg/dL (0.00-0.90) H Total Protein 7.5 G/DL (6.4-8.2) Albumin 2.0 G/DL (3.4-5.0) L Globulin 5.5 g/dL Albumin/Globulin Ratio 0.4 (1.0-2.7) L Vancomycin Level Trough 26.1 ug/mL (5.0-12.0) H Plan Problems: (1) Decubitus skin ulcer Assessment & Plan: Base of sacral wound is 90% soft necrosis with surrounding moist erythematous margins.Wound is malodorous Periwound is erythematous without induration or elevation in skin temp.(L)8cm x (W)10.5cm. Darker skin tone noted to R and L ischium. Unstageable pressure injury noted L hip Base of wound 90% necrotic cap that is semi-detached at edges,Oozing small amt brown exudate. Remaining 10% of wound is moist and martha . Edges are erythematous and flat.Wound is malodorous. Periwound is erythematous and indurated. No elevation in skin temp. (L)2.5cm x ( W)1.9cm. Two small dark skin pigmentations R Hip that are in close proximity. NO erythema or induration noted. L foot edematous. Dorsal aspect of L foot is dusky. Necrotic ulcer L hallux /L 1st metatarsal (L)3.7cm x (W)5.2cm.Edges are moist and erythematous. Wound is malodorous. Small amt brown exudate noted. Periwound including L st metatarsal is dusky and fluctuant. L heel is fluctuant with non-blanching erythema. Stable dry eschar noted to distal /lateral R foot. Periwound without erythema, induration or fluctuance.(L)0.4cm x (W)0.3cm. Stable dry eschar noted to lateral R 5th metatarsal.(L)0.3cm x (W)0.3cm. NO erythema,induration or fluctuance periwound. R heel is boggy with non-blanching erythema. change Tx orders for Sacrum and L hip to Santyl Moist gauze daily and prn. Primary nurse is aware and orders changed. left foot improving no drainage now Tx.Plan: Cleanse Sacral wound with Saline. Apply Nickel thick Layer Santyl with Saline moistened Gauze. Apply Moisture Barrier Paste periwound. Cover with Optifoam drsg. Daily and prn. Cleanse L hip wound with Saline. Apply Nickel Thick layer of Santyl with Saline Moistened Gauze. Apply Moisture Barrier Paste periwound. Cover with Optifoam drsg.Daily and prn. Cleanse Wound L Hallux with Saline. Apply Nickel thick Layer Santyl with Saline moistened gauze. Cover with ABD Pad and wrap with Kerlix Daily and prn. Apply Cavilon Skin Barrier to Distal/Lateral R foot /R 5th metatarsal Daily. Apply Cavilon SKin Barrier to both heels. Cover each heel with Optifoam drsg. Change every 7 days and prn. Apply Cavilon Skin Barrier to R hip. Cover with Optifoam drsg. Change every 7 days and prn. APM/YURIY Mattress overlay. Reposition at least every 2hours or as tolerated. Off-load heels with pillow. (2) Sepsis Assessment & Plan: Leukocytosis, abnormal labs, tachycardic, per report fevers UA identified urosepsis bacteremic leukocytosis resolved improving overall anemia fevers resolved On antibiotics as per infectious disease Trend labs Okay for diet A.m. labs Wounds unlikely etiology of sepsis as they are chronic and do not look actively infected discussed with medical teams discussed with podiatry plan for abx d/c planning cont abx oral for d/c outpatient wound care follow up We will follow with recommendations thank you for let me participate in patient' s care Darrius Miller Sep 23, 2019 13:54
--- NOTE | 2019-09-23 14:38 | Cardiac Electrophysiology PN ---
Assessment/Plan Assessment/Plan 1. NSTEMI type 2 due to renal failure with creatinine 1.7. Troponins low level between 0.5 and 0.7. No CP. ECG LBBB Nl EF and no vegetations. On aspirin. Off statin for rhabdomyolysis. Off beta lisbeth for bradycardia 2. Hypertension. On Norvasc 5 3. LBBB and sinus dorian in 30s. Resolved off Lopressor 4. Nonsustained VT. 5. Acute on chronic diastolic CHF. BNP of more than 24,000. Echo Nl EF. 6. Urinary tract infection, on IV antibiotic. 7. 4/4 Strep Bacteremia with WBC 25K. Down to 6 K. No endocarditis. ERIBERTO on 09/10/19 no vegetation. On Iv Abx 8. S/P Renal failure. Resolved 9. Uncontrolled diabetes 10. Left toe diabetic ulcer. On iv Abx. CLEM RN Subjective Subjective No events on iv Abx. RN at bedside. Placement pending Objective Last 24 Hour Vital Signs Date Time Temp Pulse Resp B/P (MAP) Pulse Ox O2 Delivery O2 Flow Rate FiO2 09/23/19 12:00 98.6 71 18 107/87 (94) 98 09/23/19 09:00 Room Air 09/23/19 08:27 82 129/59 09/23/19 08:00 98.6 82 18 129/59 (82) 98 09/23/19 04:00 98.6 87 18 124/63 (83) 98 09/23/19 00:00 98.8 94 18 125/67 (86) 96 09/22/19 21:00 Room Air 09/22/19 20:00 98.9 89 18 104/72 (83) 96 09/22/19 16:00 98.6 81 18 126/73 (90) 97 Intake and Output 09/22/19 09/23/19 19:00 07:00 Intake Total 1170 ml 610.000 ml Output Total 1000 ml 600 ml Balance 170 ml 10.000 ml Intake Oral 840 ml IV Total 330 ml 610.000 ml Output Urine Total 1000 ml 600 ml # Voids 1 Laboratory Tests Test 09/23/19 07:35 White Blood Count 9.5 K/UL (4.8-10.8) Red Blood Count 2.89 M/UL (4.20-5.40) L Hemoglobin 7.9 G/DL (12.0-16.0) L Hematocrit 24.4 % (37.0-47.0) L Mean Corpuscular Volume 85 FL (80-99) Mean Corpuscular Hemoglobin 27.4 PG (27.0-31.0) Mean Corpuscular Hemoglobin Concent 32.4 G/DL (32.0-36.0) Red Cell Distribution Width 16.4 % (11.6-14.8) H Platelet Count 442 K/UL (150-450) Mean Platelet Volume 5.5 FL (6.5-10.1) L Neutrophils (%) (Auto) % (45.0-75.0) Lymphocytes (%) (Auto) % (20.0-45.0) Monocytes (%) (Auto) % (1.0-10.0) Eosinophils (%) (Auto) % (0.0-3.0) Basophils (%) (Auto) % (0.0-2.0) Differential Total Cells Counted 100 Neutrophils % (Manual) 68 % (45-75) Lymphocytes % (Manual) 26 % (20-45) Monocytes % (Manual) 5 % (1-10) Eosinophils % (Manual) 1 % (0-3) Basophils % (Manual) 0 % (0-2) Band Neutrophils 0 % (0-8) Platelet Estimate Adequate Platelet Morphology Normal Hypochromasia 1+ Anisocytosis 1+ Erythrocyte Sedimentation Rate 125 MM/HR (0-30) H Sodium Level 143 MMOL/L (136-145) Potassium Level 3.5 MMOL/L (3.5-5.1) Chloride Level 109 MMOL/L (98-107) H Carbon Dioxide Level 25 MMOL/L (21-32) Anion Gap 9 mmol/L (5-15) Blood Urea Nitrogen 7 mg/dL (7-18) Creatinine 0.8 MG/DL (0.55-1.30) Estimat Glomerular Filtration Rate > 60 mL/min (>60) Glucose Level 109 MG/DL (74-106) H Calcium Level 8.5 MG/DL (8.5-10.1) Phosphorus Level 2.2 MG/DL (2.5-4.9) L Magnesium Level 1.5 MG/DL (1.8-2.4) L Total Bilirubin 0.4 MG/DL (0.2-1.0) Aspartate Amino Transf (AST/SGOT) 16 U/L (15-37) Alanine Aminotransferase (ALT/SGPT) 6 U/L (12-78) L Alkaline Phosphatase 66 U/L (46-116) C-Reactive Protein, Quantitative 8.3 mg/dL (0.00-0.90) H Total Protein 7.5 G/DL (6.4-8.2) Albumin 2.0 G/DL (3.4-5.0) L Globulin 5.5 g/dL Albumin/Globulin Ratio 0.4 (1.0-2.7) L Vancomycin Level Trough 26.1 ug/mL (5.0-12.0) H Objective HEAD AND NECK: No JVD LUNGS: Clear. CARDIOVASCULAR: Regular S1 and S2 with no gallop or murmur. ABDOMEN: Soft. EXTREMITIES: Left toe ulcer covered with dressing Luis Purdy MD Sep 23, 2019 14:38
--- NOTE | 2019-09-23 14:46 | NUR ---
NURSE NOTES: PT AWAKE ALERT, NO DISTRESS. NO SOB. NO C/O PAIN. CALL LIGHT WITHIN REACH. BED IN LOWEST POSITION, LOCKED. WILL MONITOR. TURNED AND REPOSITIONED.
[2019-09-23 16:00] VITALS: BP 127/53
--- NOTE | 2019-09-23 16:20 | NUR ---
SWALLOW STATUS S: PATIENT CLEARED FOR ST INTERVENTION BY ISHAAN TORRES. O: DYSPHAGIA MANAGEMENT A: PATIENT TOLERATING CURRENT MODIFIED DIET WITH NO OVERT S/S OF ASPIRATION. PATIENT SEEN TODAY IN CONTEXT OF NOON MEAL. SHE IS REFUSING P.O. WHICH IS APARRENTLY A PATTERN: REFUSING \ P.O. WHEN OFFERED BY STAFF, BUT CHOOSING TO EAT WHEN FED BY FAMILY P: GOAL MET RELATIVE TO SAFEST VISCOSITY FOR P.O.INTAKE TO MINIMIZE RISK OF ASPIRATION (CURRENT CXR POSITIVE FOR PULMONARY IMPROVEMENT) HOWEVER, SHE REMAINS AT RISK FOR MALNUTRITION/DEHYDRATION/POOR WOUND HEALING DUE TO HER INSUFFICIENT P.O. INTAKE IF INTAKE LEVELS REMAIN INSUFFICIENT CONSIDER PEG VS PALLIATIVE/ COMFORT CENTERED CARE.
--- NOTE | 2019-09-23 17:12 | General Progress Note ---
Assessment/Plan Status: stable Subjective Allergies: Coded Allergies: No Known Allergies (Unverified , 10/23/13) Objective Last 24 Hour Vital Signs Date Time Temp Pulse Resp B/P (MAP) Pulse Ox O2 Delivery O2 Flow Rate FiO2 09/23/19 16:00 98.6 79 18 127/53 (77) 98 09/23/19 12:00 98.6 71 18 107/87 (94) 98 09/23/19 09:00 Room Air 09/23/19 08:27 82 129/59 09/23/19 08:00 98.6 82 18 129/59 (82) 98 09/23/19 04:00 98.6 87 18 124/63 (83) 98 09/23/19 00:00 98.8 94 18 125/67 (86) 96 09/22/19 21:00 Room Air 09/22/19 20:00 98.9 89 18 104/72 (83) 96 Intake and Output 09/22/19 09/23/19 19:00 07:00 Intake Total 1170 ml 610.000 ml Output Total 1000 ml 600 ml Balance 170 ml 10.000 ml Intake Oral 840 ml IV Total 330 ml 610.000 ml Output Urine Total 1000 ml 600 ml # Voids 1 Laboratory Tests 09/23/19 07:35: White Blood Count 9.5, Red Blood Count 2.89L, Hemoglobin 7.9L, Hematocrit 24.4L , Mean Corpuscular Volume 85, Mean Corpuscular Hemoglobin 27.4, Mean Corpuscular Hemoglobin Concent 32.4, Red Cell Distribution Width 16.4H, Platelet Count 442, Mean Platelet Volume 5.5L, Neutrophils (%) (Auto) , Lymphocytes (%) (Auto) , Monocytes (%) (Auto) , Eosinophils (%) (Auto) , Basophils (%) (Auto) , Differential Total Cells Counted 100, Neutrophils % ( Manual) 68, Lymphocytes % (Manual) 26, Monocytes % (Manual) 5, Eosinophils % ( Manual) 1, Basophils % (Manual) 0, Band Neutrophils 0, Platelet Estimate Adequate, Platelet Morphology Normal, Hypochromasia 1+, Anisocytosis 1+, Erythrocyte Sedimentation Rate 125H, Sodium Level 143, Potassium Level 3.5, Chloride Level 109H, Carbon Dioxide Level 25, Anion Gap 9, Blood Urea Nitrogen 7 , Creatinine 0.8, Estimat Glomerular Filtration Rate > 60, Glucose Level 109H, Calcium Level 8.5, Phosphorus Level 2.2L, Magnesium Level 1.5L, Total Bilirubin 0.4, Aspartate Amino Transf (AST/SGOT) 16, Alanine Aminotransferase (ALT/SGPT) 6L, Alkaline Phosphatase 66, C-Reactive Protein, Quantitative 8.3H, Total Protein 7.5, Albumin 2.0L, Globulin 5.5, Albumin/Globulin Ratio 0.4L, Vancomycin Level Trough 26.1H Height (Feet): 5 Height (Inches): 3.00 Weight (Pounds): 127 Donell King D.O. Sep 23, 2019 17:12
[2019-09-23] MEDS: Heparin 5000 units/ml inj SUBQ SCH ×2 (17:38→21:40)
[2019-09-23 20:00] VITALS: BP 110/46
--- NOTE | 2019-09-23 20:00 | NUR ---
NURSE NOTES: Received patient awake in bed, no s/s of acute distress, confused but able to make needs known. IV access patent, asymptomatic, running IVF maintenance. Buckner catheter noted, patent, patient tolerating well. Bed low and locked, patient wearing non slip socks.
[2019-09-23] MEDS: Cefepime HCl 2 GM in NS 110 ML IVPB SCH (20:37)
--- NOTE | 2019-09-23 21:06 | General Progress Note ---
Assessment/Plan Status: stable Assessment/Plan: 84-year-old lady from [facility] with history of hypertension, uncontrolled diabetes, and Parkinson disease, who was brought to the emergency room by family member for altered mental status and weakness. #Osteomyelitis left foot/ 1st toe #Severe PVD #Severe sepsis #Group B strep, ESBL UTI and bacteremia - vancomycin, cefepime, flagyl - day # 31. will need 6 weeks IV abx treatment for osteomyelitis - ERIBERTO negative for vegetation. surveillance cultures are negative - wound culture right foot with normal maximino but likely polymicrobial infection - monitor labs, recent chest x-ray negative - d/w Dr. Mcfadden, surgery and podiatry f/u - diflucan for 5 days for persistent fungal uti - ID consult appreciated -General surgery consult appreciated #Uncontrolled DM II - A1c 9-->insulin sliding scale ac/hs, change to resistant scale, fsbg controlled #Parkinson's disease #Dementia - c/w PD regimen - supportive care - delirium precautions #NSTEMI #HFpEF #HTN - heparin gtt per acs protocol, DC per cards, no chest pain, stable troponin. Continue ASA, beta lisbeth (Lopressor 25), hold off on statin due to rhabdomyolysis. Decreased Lopressor to 12.5 mg bid due to low heart rate, eventually had to stop due to bradycardia on 08/29 - trend tn/ekg - s/p lasix 40 mg BID -Echocardiogram Nl EF -continue amlodipine - cardiology consult appreciated #OWEN due to ATN resolved avoid nephrotoxin medications #Hypokalemia #Hypernatremia resolved Replace as needed DVT ppx: HSQ Code status: Full -discussed goals of care with family at bedside 09/15/2019 Time spent on patient care, 32 mins, >50% on counseling and coordination of care Time of this note may not reflect the time of the clinical encounter. Subjective Allergies: Coded Allergies: No Known Allergies (Unverified , 10/23/13) Subjective No acute events overnight per nursing. Patient is nonverbal at baseline. Unable to collect further subjective history. Afebrile vital signs stable. ROS unable to obtain Objective Last 24 Hour Vital Signs Date Time Temp Pulse Resp B/P (MAP) Pulse Ox O2 Delivery O2 Flow Rate FiO2 09/23/19 20:00 98.6 79 21 110/46 (67) 98 09/23/19 16:00 98.6 79 18 127/53 (77) 98 09/23/19 12:00 98.6 71 18 107/87 (94) 98 09/23/19 09:00 Room Air 09/23/19 08:27 82 129/59 09/23/19 08:00 98.6 82 18 129/59 (82) 98 09/23/19 04:00 98.6 87 18 124/63 (83) 98 09/23/19 00:00 98.8 94 18 125/67 (86) 96 Intake and Output 09/22/19 09/23/19 19:00 07:00 Intake Total 1170 ml 610.000 ml Output Total 1000 ml 600 ml Balance 170 ml 10.000 ml Intake Oral 840 ml IV Total 330 ml 610.000 ml Output Urine Total 1000 ml 600 ml # Voids 1 Laboratory Tests 09/23/19 07:35: White Blood Count 9.5, Red Blood Count 2.89L, Hemoglobin 7.9L, Hematocrit 24.4L , Mean Corpuscular Volume 85, Mean Corpuscular Hemoglobin 27.4, Mean Corpuscular Hemoglobin Concent 32.4, Red Cell Distribution Width 16.4H, Platelet Count 442, Mean Platelet Volume 5.5L, Neutrophils (%) (Auto) , Lymphocytes (%) (Auto) , Monocytes (%) (Auto) , Eosinophils (%) (Auto) , Basophils (%) (Auto) , Differential Total Cells Counted 100, Neutrophils % ( Manual) 68, Lymphocytes % (Manual) 26, Monocytes % (Manual) 5, Eosinophils % ( Manual) 1, Basophils % (Manual) 0, Band Neutrophils 0, Platelet Estimate Adequate, Platelet Morphology Normal, Hypochromasia 1+, Anisocytosis 1+, Erythrocyte Sedimentation Rate 125H, Sodium Level 143, Potassium Level 3.5, Chloride Level 109H, Carbon Dioxide Level 25, Anion Gap 9, Blood Urea Nitrogen 7 , Creatinine 0.8, Estimat Glomerular Filtration Rate > 60, Glucose Level 109H, Calcium Level 8.5, Phosphorus Level 2.2L, Magnesium Level 1.5L, Total Bilirubin 0.4, Aspartate Amino Transf (AST/SGOT) 16, Alanine Aminotransferase (ALT/SGPT) 6L, Alkaline Phosphatase 66, C-Reactive Protein, Quantitative 8.3H, Total Protein 7.5, Albumin 2.0L, Globulin 5.5, Albumin/Globulin Ratio 0.4L, Vancomycin Level Trough 26.1H Height (Feet): 5 Height (Inches): 3.00 Weight (Pounds): 127 Objective General: WDWN female in NAD, A&O x 1 HEENT: Normocephalic cephalic atraumatic, pupils equal round reactive to light and accommodation, nares patent and no symmetrical, no tonsillar exudates, mucous membranes moist CV: Regular rate regular rhythm, no murmurs, rubs, or gallops Pulm: Lungs clear to auscultation bilaterally. No wheezes, rhonchi, or rales GI: Soft, nontender, nondistended, bowel sounds present Neuro: CN 2-12 intact bilaterally, no focal signs. Ext: No lower extremity edema bilaterally. Trey all 4 extremities. : Buckner in place draining yellow urine Skin: no rashes lesions or ulcers Msk: Joints symmetrical in upper extremity and lower extremity bilaterally, no joint swelling. Lymph: No lymphadenopathy in upper extremity and lower extremity Donell King D.O. Sep 23, 2019 21:06
[2019-09-24] VITALS: BP 120/52
[2019-09-24] MEDS: metroNIDAZOLE 500mg tab ORAL SCH ×3 (01:15→17:03)
[2019-09-24 04:00] VITALS: BP 118/70
[2019-09-24] MEDS: Vancomycin 750 MG in NS 275 ML IVPB SCH (04:02)
[2019-09-24 05:13] LABS: ANION GAP 9 mmol/L (5-15); BLOOD UREA NITROGEN 7 mg/dL (7-18); CALCIUM 8.4 MG/DL (8.5-10.1); CARBON DIOXIDE 24 MMOL/L (21-32); CHLORIDE 109 MMOL/L (98-107); CREATININE 0.8 MG/DL (0.55-1.30); PHOSPHORUS 2.5 MG/DL (2.5-4.9); POTASSIUM 3.3 MMOL/L (3.5-5.1); SODIUM 142 MMOL/L (136-145)
[2019-09-24] MEDS: Heparin 5000 units/ml inj SUBQ SCH ×3 (05:34→23:08)
[2019-09-24] MEDS: NovoLOG Insulin Flexpen SUBQ SCH ×4 (05:49→20:59)
--- NOTE | 2019-09-24 07:21 | NUR ---
HAND-OFF: Report given to ISHAAN Augustin.
--- NOTE | 2019-09-24 07:24 | NUR ---
NURSE NOTES: Received patient in bed, awake, verbally responsive. Not in respiratory distress. No s/s of pain or discomfort. Buckner is intact, draining well to gravity. On p200. Wound dressing are intact. Bed is in lowest position and locked. Call light within reach. Will continue plan of care.
[2019-09-24 08:00] VITALS: BP 111/55
--- NOTE | 2019-09-24 10:53 | Cardiac Electrophysiology PN ---
Assessment/Plan Assessment/Plan 1. NSTEMI type 2 due to renal failure with creatinine 1.7. Troponins low level between 0.5 and 0.7. No CP. ECG LBBB Nl EF and no vegetations. On aspirin. Off statin for rhabdomyolysis. Off beta lisbeth for bradycardia 2. Hypertension. On Norvasc 5 3. LBBB and sinus dorian in 30s. Resolved 4. Nonsustained VT. 5. Acute on chronic diastolic CHF. Echo Nl EF. 6. Urinary tract infection, on IV antibiotic. 7. 4/4 Strep Bacteremia with WBC 25K. Down to 6 K. No endocarditis. ERIBERTO on 09/10/19 no vegetation. On Iv Abx 8. S/P Renal failure. Resolved 9. Uncontrolled diabetes 10. Left toe diabetic ulcer. On iv Abx. CLEM RN Subjective Subjective No events on iv Abx. Comfortable in NAD. Placement pending Objective Last 24 Hour Vital Signs Date Time Temp Pulse Resp B/P (MAP) Pulse Ox O2 Delivery O2 Flow Rate FiO2 09/24/19 09:00 Room Air 09/24/19 08:31 69 111/55 09/24/19 08:00 98.2 69 19 111/55 (73) 100 09/24/19 04:00 97.9 81 21 118/70 (86) 98 09/24/19 00:00 97.9 82 21 120/52 (74) 98 09/23/19 22:33 Room Air 09/23/19 20:00 98.6 79 21 110/46 (67) 98 09/23/19 16:00 98.6 79 18 127/53 (77) 98 09/23/19 12:00 98.6 71 18 107/87 (94) 98 Intake and Output 09/23/19 09/24/19 19:00 07:00 Intake Total 1191.092 ml 150 ml Output Total 600 ml 350 ml Balance 591.092 ml -200 ml Intake Oral 460 ml IV Total 731.092 ml 150 ml Output Urine Total 600 ml 350 ml # Voids 1 # Bowel Movements 1 Laboratory Tests Test 09/24/19 04:15 Sodium Level 142 MMOL/L (136-145) Potassium Level 3.3 MMOL/L (3.5-5.1) L Chloride Level 109 MMOL/L (98-107) H Carbon Dioxide Level 24 MMOL/L (21-32) Anion Gap 9 mmol/L (5-15) Blood Urea Nitrogen 7 mg/dL (7-18) Creatinine 0.8 MG/DL (0.55-1.30) Estimat Glomerular Filtration Rate > 60 mL/min (>60) Glucose Level 99 MG/DL (74-106) Calcium Level 8.4 MG/DL (8.5-10.1) L Phosphorus Level 2.5 MG/DL (2.5-4.9) Magnesium Level 2.4 MG/DL (1.8-2.4) Vancomycin Level Trough 15.2 ug/mL (5.0-12.0) H Objective HEAD AND NECK: No JVD LUNGS: Clear. CARDIOVASCULAR: Regular S1 and S2 with no gallop or murmur. ABDOMEN: Soft. EXTREMITIES: Left toe ulcer covered with dressing Luis Purdy MD Sep 24, 2019 10:53
--- NOTE | 2019-09-24 11:10 | NUR ---
NURSE NOTES: Patient's potassium is 3.[address] Gaston. He would put order.
[2019-09-24 12:00] VITALS: BP 120/52
--- NOTE | 2019-09-24 12:00 | NUR ---
NURSE NOTES: Given potassium 40MEQ po.
--- NOTE | 2019-09-24 12:28 | Surgery Progress Note ---
Surgery Progress Note Subjective Additional Comments no acute events comfortable Objective Last 24 Hour Vital Signs Date Time Temp Pulse Resp B/P (MAP) Pulse Ox O2 Delivery O2 Flow Rate FiO2 09/24/19 09:00 Room Air 09/24/19 08:31 69 111/55 09/24/19 08:00 98.2 69 19 111/55 (73) 100 09/24/19 04:00 97.9 81 21 118/70 (86) 98 09/24/19 00:00 97.9 82 21 120/52 (74) 98 09/23/19 22:33 Room Air 09/23/19 20:00 98.6 79 21 110/46 (67) 98 09/23/19 16:00 98.6 79 18 127/53 (77) 98 I&O Intake and Output 09/23/19 09/24/19 19:00 07:00 Intake Total 1191.092 ml 180 ml Output Total 600 ml 350 ml Balance 591.092 ml -170 ml Intake Oral 460 ml IV Total 731.092 ml 180 ml Output Urine Total 600 ml 350 ml # Voids 1 # Bowel Movements 1 Dressing: dry Wound: clean Cardiovascular: RSR Respiratory: clear Abdomen: soft, non-tender, present bowel sounds Extremities: no cyanosis Laboratory Tests Test 09/24/19 04:15 Sodium Level 142 MMOL/L (136-145) Potassium Level 3.3 MMOL/L (3.5-5.1) L Chloride Level 109 MMOL/L (98-107) H Carbon Dioxide Level 24 MMOL/L (21-32) Anion Gap 9 mmol/L (5-15) Blood Urea Nitrogen 7 mg/dL (7-18) Creatinine 0.8 MG/DL (0.55-1.30) Estimat Glomerular Filtration Rate > 60 mL/min (>60) Glucose Level 99 MG/DL (74-106) Calcium Level 8.4 MG/DL (8.5-10.1) L Phosphorus Level 2.5 MG/DL (2.5-4.9) Magnesium Level 2.4 MG/DL (1.8-2.4) Vancomycin Level Trough 15.2 ug/mL (5.0-12.0) H Plan Problems: (1) Decubitus skin ulcer Assessment & Plan: Base of sacral wound is 90% soft necrosis with surrounding moist erythematous margins.Wound is malodorous Periwound is erythematous without induration or elevation in skin temp.(L)8cm x (W)10.5cm. Darker skin tone noted to R and L ischium. Unstageable pressure injury noted L hip Base of wound 90% necrotic cap that is semi-detached at edges,Oozing small amt brown exudate. Remaining 10% of wound is moist and martha . Edges are erythematous and flat.Wound is malodorous. Periwound is erythematous and indurated. No elevation in skin temp. (L)2.5cm x ( W)1.9cm. Two small dark skin pigmentations R Hip that are in close proximity. NO erythema or induration noted. L foot edematous. Dorsal aspect of L foot is dusky. Necrotic ulcer L hallux /L 1st metatarsal (L)3.7cm x (W)5.2cm.Edges are moist and erythematous. Wound is malodorous. Small amt brown exudate noted. Periwound including L st metatarsal is dusky and fluctuant. L heel is fluctuant with non-blanching erythema. Stable dry eschar noted to distal /lateral R foot. Periwound without erythema, induration or fluctuance.(L)0.4cm x (W)0.3cm. Stable dry eschar noted to lateral R 5th metatarsal.(L)0.3cm x (W)0.3cm. NO erythema,induration or fluctuance periwound. R heel is boggy with non-blanching erythema. change Tx orders for Sacrum and L hip to Santyl Moist gauze daily and prn. Primary nurse is aware and orders changed. left foot improving no drainage now Tx.Plan: Cleanse Sacral wound with Saline. Apply Nickel thick Layer Santyl with Saline moistened Gauze. Apply Moisture Barrier Paste periwound. Cover with Optifoam drsg. Daily and prn. Cleanse L hip wound with Saline. Apply Nickel Thick layer of Santyl with Saline Moistened Gauze. Apply Moisture Barrier Paste periwound. Cover with Optifoam drsg.Daily and prn. Cleanse Wound L Hallux with Saline. Apply Nickel thick Layer Santyl with Saline moistened gauze. Cover with ABD Pad and wrap with Kerlix Daily and prn. Apply Cavilon Skin Barrier to Distal/Lateral R foot /R 5th metatarsal Daily. Apply Cavilon SKin Barrier to both heels. Cover each heel with Optifoam drsg. Change every 7 days and prn. Apply Cavilon Skin Barrier to R hip. Cover with Optifoam drsg. Change every 7 days and prn. APM/YURIY Mattress overlay. Reposition at least every 2hours or as tolerated. Off-load heels with pillow. (2) Sepsis Assessment & Plan: Leukocytosis, abnormal labs, tachycardic, per report fevers UA identified urosepsis bacteremic leukocytosis resolved improving overall anemia fevers resolved On antibiotics as per infectious disease Trend labs Okay for diet A.m. labs Wounds unlikely etiology of sepsis as they are chronic and do not look actively infected discussed with medical teams discussed with podiatry plan for abx d/c planning cont abx oral for d/c outpatient wound care follow up We will follow with recommendations thank you for let me participate in patient' s care Darrius Miller Sep 24, 2019 12:28
--- NOTE | 2019-09-24 12:48 | NUR ---
CASE MANAGEMENT:REVIEW 09/23/2019 SI;LEFT FOOT OSTEOMYELITIS. 98.6 94 18 124/63 96% ON RA H/H 7.9/24.4 IS;VANCOMYCIN IV Q24 HRS CEFEPIME IV Q24 HRS FLAGYL PO Q8 HRS SANTYL OP QD IVF NS @ 30 ML/HR MED SURG STATUS DCP;FROM HOME CASE MANAGEMENT:REVIEW 09/24/2019 SI;LEFT FOOT OSTEOMYELITIS 98.6 82 21 129/59 98% RA K+ 3.3 CA+ 8.4 IS;VANCOMYCIN IV Q24 HRS CEFEPIME IV Q24 HRS FLAGYL PO Q8 HRS SANTYL OP QD IVF NS @ 30 ML/HR MED SURG STATUS DCP;FROM HOME
[2019-09-24 16:00] VITALS: BP 127/58
--- NOTE | 2019-09-24 19:25 | NUR ---
HAND-OFF: Report given to Dahiana.
[2019-09-24 20:00] VITALS: BP 121/59
--- NOTE | 2019-09-24 20:00 | NUR ---
NURSE NOTES: Received patient awake in bed, no s/s of acute distress, confused but able to make needs known, fatigued. IV access patent, asymptomatic, running IVF maintenance. Buckner catheter noted, patent, patient tolerating well. Bed low and locked, patient wearing non slip socks.
--- NOTE | 2019-09-24 20:03 | General Progress Note ---
Assessment/Plan Status: stable Assessment/Plan: 84-year-old lady from [facility] with history of hypertension, uncontrolled diabetes, and Parkinson disease, who was brought to the emergency room by family member for altered mental status and weakness. #Osteomyelitis left foot/ 1st toe #Severe PVD #Severe sepsis #Group B strep, ESBL UTI and bacteremia - vancomycin, cefepime, flagyl - day # 32. will need 6 weeks IV abx treatment for osteomyelitis - ERIBERTO negative for vegetation. surveillance cultures are negative - wound culture right foot with normal maximino but likely polymicrobial infection - monitor labs, recent chest x-ray negative - d/w Dr. Mcfadden, surgery and podiatry f/u - diflucan for 5 days for persistent fungal uti - ID consult appreciated -General surgery consult appreciated #Uncontrolled DM II - A1c 9-->insulin sliding scale ac/hs, change to resistant scale, fsbg controlled #Parkinson's disease #Dementia - c/w PD regimen - supportive care - delirium precautions #NSTEMI #HFpEF #HTN - heparin gtt per acs protocol, DC per cards, no chest pain, stable troponin. Continue ASA, beta lisbeth (Lopressor 25), hold off on statin due to rhabdomyolysis. Decreased Lopressor to 12.5 mg bid due to low heart rate, eventually had to stop due to bradycardia on 08/29 - trend tn/ekg - s/p lasix 40 mg BID -Echocardiogram Nl EF -continue amlodipine - cardiology consult appreciated #OWEN due to ATN resolved avoid nephrotoxin medications #Hypokalemia #Hypernatremia resolved Replace as needed #stage II sacral decubitus ulcer Appreciate wound consult Wound care Buckner in place for healing of wound DVT ppx: HSQ Code status: Full -discussed goals of care with family at bedside 09/15/2019 Time spent on patient care, 30 mins, >50% on counseling and coordination of care Time of this note may not reflect the time of the clinical encounter. Subjective Allergies: Coded Allergies: No Known Allergies (Unverified , 10/23/13) Subjective No acute events overnight per nursing. Patient has dementia at baseline. Unable to collect further subjective history. Afebrile vital signs stable. ROS unable to obtain. Not answering questions Objective Last 24 Hour Vital Signs Date Time Temp Pulse Resp B/P (MAP) Pulse Ox O2 Delivery O2 Flow Rate FiO2 09/24/19 16:00 98.4 90 18 127/58 (81) 98 09/24/19 12:00 97.6 82 19 120/52 (74) 100 09/24/19 09:00 Room Air 09/24/19 08:31 69 111/55 09/24/19 08:00 98.2 69 19 111/55 (73) 100 09/24/19 04:00 97.9 81 21 118/70 (86) 98 09/24/19 00:00 97.9 82 21 120/52 (74) 98 09/23/19 22:33 Room Air Intake and Output 09/23/19 09/24/19 19:00 07:00 Intake Total 1191.092 ml 180 ml Output Total 600 ml 350 ml Balance 591.092 ml -170 ml Intake Oral 460 ml IV Total 731.092 ml 180 ml Output Urine Total 600 ml 350 ml # Voids 1 # Bowel Movements 1 Laboratory Tests 09/24/19 04:15: Sodium Level 142, Potassium Level 3.3L, Chloride Level 109H, Carbon Dioxide Level 24, Anion Gap 9, Blood Urea Nitrogen 7, Creatinine 0.8, Estimat Glomerular Filtration Rate > 60, Glucose Level 99, Calcium Level 8.4L, Phosphorus Level 2.5, Magnesium Level 2.4, Vancomycin Level Trough 15.2H Height (Feet): 5 Height (Inches): 3.00 Weight (Pounds): 127 Objective General: WDWN female in NAD, A&O x 1 HEENT: Normocephalic cephalic atraumatic, pupils equal round reactive to light and accommodation, nares patent and no symmetrical, no tonsillar exudates, mucous membranes moist CV: Regular rate regular rhythm, no murmurs, rubs, or gallops Pulm: Lungs clear to auscultation bilaterally. No wheezes, rhonchi, or rales GI: Soft, nontender, nondistended, bowel sounds present Neuro: CN 2-12 intact bilaterally, no focal signs. Ext: No lower extremity edema bilaterally. Trey all 4 extremities. : Buckner in place draining yellow urine Skin: Stage II sacral decubitus ulcer. No drainage, bleeding. Msk: Joints symmetrical in upper extremity and lower extremity bilaterally, no joint swelling. Lymph: No lymphadenopathy in upper extremity and lower extremity Donell King D.O. Sep 24, 2019 20:03
--- NOTE | 2019-09-24 20:56 | Infectious Diseases Prog Note ---
Assessment/Plan Assessment/Plan ASSESSMENT AND PLAN: 1. streptococcus agalactiae - group b bacteremia, ? endocarditis, esbl e.coli uti, sirs, leukocytosis, ? pna on chest x-ray - ? hcap/aspiration vs pulmonary edema, left foot great toe/1st toe wound infection - MRI c/w osteomyelitis, elevated sed rate f/u urine culture with persistent yeast - vancomycin, cefepime, flagyl - day # 32 of abx, will need 6 weeks treatment for osteomyelitis - CRP improved significantly - 20.6 to 8.3, sed rate still elevated at 125 - ERIBERTO negative for vegetation, s/p tx for bacteremia - wound culture right foot with normal maximino but likely polymicrobial infection - monitor labs, recent chest x-ray negative - surgery note reviewed - left foot improving - finish diflucan 2. Acute kidney injury with elevated creatinine. 3. History of diabetes. 4. weakness 5. Blood pressure treatment per primary care team and diabetes treatment per primary care team and consultants. 6. Parkinson's. 7. Dementia. 8. The patient does have also elevated troponin. Cardiology follow-up. 9. MAR was noted. 10. Case was discussed with RN. 11. No known allergies. 12. Social history is negative. 13. Family history is noncontributory. 14. Continue treatment per primary consultants. 15. Orders were noted and entered. Subjective Constitutional: Denies: fever HEENT: Denies: congestion Respiratory: Denies: shortness of breath Cardiovascular: Denies: chest pain Gastrointestinal/Abdominal: Denies: nausea, vomiting, diarrhea Genitourinary: Reports: other - + arnold Neurologic: Denies: headache Psychiatric: Denies: depression Skin: Denies: rash Hematologic: Denies: bleeding Musculoskeletal: Denies: pain Allergies: Coded Allergies: No Known Allergies (Unverified , 10/23/13) Objective Vital Signs Last 24 Hour Vital Signs Date Time Temp Pulse Resp B/P (MAP) Pulse Ox O2 Delivery O2 Flow Rate FiO2 09/24/19 16:00 98.4 90 18 127/58 (81) 98 09/24/19 12:00 97.6 82 19 120/52 (74) 100 09/24/19 09:00 Room Air 09/24/19 08:31 69 111/55 09/24/19 08:00 98.2 69 19 111/55 (73) 100 09/24/19 04:00 97.9 81 21 118/70 (86) 98 09/24/19 00:00 97.9 82 21 120/52 (74) 98 09/23/19 22:33 Room Air Height (Feet): 5 Height (Inches): 3.00 Weight (Pounds): 127 General Appearance: no acute distress HEENT: normocephalic, atraumatic, anicteric Respiratory/Chest: lungs clear, normal breath sounds, no respiratory distress, no accessory muscle use Cardiovascular: normal rate, regular rhythm, no gallop/murmur, no JVD Abdomen: normal bowel sounds, soft, non tender, no organomegaly, non distended Genitourinary: other - + arnold - urine slt cloudy Extremities: no cyanosis Skin: no rash Neurologic/Psychiatric: air crew member II-XII grossly normal, abnormal gait, alert, oriented x 3 Lymphatic: no neck adenopathy Musculoskeletal: no effusion Objective Chest x-ray - FINDINGS: Lungs: Mild vascular congestion. Pleural space: Unremarkable. No pneumothorax. Heart: Borderline cardiomegaly, potentially exaggerated by portable technique. Mediastinum: Calcified aorta. Bones/joints: Osteopenia. Degenerative changes. IMPRESSION: Mild vascular congestion CT abdomen: Impression: Anasarca, as described, with generalized edema of subcutaneous abdominal fat, moderate-sized bilateral pleural effusions, pulmonary interstitial and airspace edema Compressive atelectasis of the lower lobes due to the pleural fluid Evidence of rectal fecal impaction and possible stercoral proctitis Pessary, likely malpositioned, as described. There is evidence of bladder floor relaxation despite the pessary Dilated extrahepatic bile ducts. Most likely related to patient's age as no downstream obstructive lesion is demonstrated. However, correlation with liver function tests is recommended, with consideration for MRCP if clinically indicated Questionable slight retrococcygeal decubitus changes. Correlate with findings Other findings as noted, including evidence of prior renal cortical scarring, Arnold catheter, uterine arcuate artery calcifications Chest x-ray - 09/05/19 - Indication: Cough Technique: One view of the chest Comparison: 08/24/2019 Findings: There is increased interstitial edema. There is evidence of left perihilar airspace disease There is suggestion of trace bilateral pleural effusions. The heart size is upper limits normal. Impression: Increased interstitial edema, since prior exam 08/24/2019 Suspect left perihilar consolidation Small bilateral pleural effusions Chest x-ray - 09/07/19 - IMPRESSION: 1. Interval mild improvement in the diffusely increased interstitial markings compared to the prior exam, suggesting improved pulmonary interstitial edema. 2. Linear atelectasis at the periphery of the left mid lung. 3. Possible small left pleural effusion. MRI left foot: IMPRESSION: Evidence of acute osteomyelitis involving the hallux as described above. Cellulitis. Microbiology Date/Time Source Procedure Growth Status 09/03/19 21:00 Blood Blood Culture - Final NO GROWTH AFTER 5 DAYS Complete 09/12/19 14:45 Indwelling Cath Urine Culture - Final Nehal Albicans Complete 09/07/19 13:12 Foot Left Gram Stain - Final Complete 09/07/19 13:12 Wound Culture - Final Usual Skin Maximino Complete Labs Test 09/22/19 06:53 09/23/19 07:35 09/24/19 04:15 White Blood Count 7.9 K/UL (4.8-10.8) 9.5 K/UL (4.8-10.8) Red Blood Count 2.86 M/UL (4.20-5.40) 2.89 M/UL (4.20-5.40) Hemoglobin 7.8 G/DL (12.0-16.0) 7.9 G/DL (12.0-16.0) Hematocrit 24.1 % (37.0-47.0) 24.4 % (37.0-47.0) Mean Corpuscular Volume 84 FL (80-99) 85 FL (80-99) Mean Corpuscular Hemoglobin 27.2 PG (27.0-31.0) 27.4 PG (27.0-31.0) Mean Corpuscular Hemoglobin Concent 32.3 G/DL (32.0-36.0) 32.4 G/DL (32.0-36.0) Red Cell Distribution Width 16.0 % (11.6-14.8) 16.4 % (11.6-14.8) Platelet Count 459 K/UL (150-450) 442 K/UL (150-450) Mean Platelet Volume 5.6 FL (6.5-10.1) 5.5 FL (6.5-10.1) Neutrophils (%) (Auto) % (45.0-75.0) % (45.0-75.0) Lymphocytes (%) (Auto) % (20.0-45.0) % (20.0-45.0) Monocytes (%) (Auto) % (1.0-10.0) % (1.0-10.0) Eosinophils (%) (Auto) % (0.0-3.0) % (0.0-3.0) Basophils (%) (Auto) % (0.0-2.0) % (0.0-2.0) Differential Total Cells Counted 100 100 Neutrophils % (Manual) 68 % (45-75) 68 % (45-75) Lymphocytes % (Manual) 22 % (20-45) 26 % (20-45) Monocytes % (Manual) 8 % (1-10) 5 % (1-10) Eosinophils % (Manual) 1 % (0-3) 1 % (0-3) Basophils % (Manual) 1 % (0-2) 0 % (0-2) Band Neutrophils 0 % (0-8) 0 % (0-8) Platelet Estimate Adequate Adequate Platelet Morphology Normal Normal Hypochromasia 3+ 1+ Anisocytosis 1+ 1+ Sodium Level 143 MMOL/L (136-145) 143 MMOL/L (136-145) 142 MMOL/L (136-145) Potassium Level 4.0 MMOL/L (3.5-5.1) 3.5 MMOL/L (3.5-5.1) 3.3 MMOL/L (3.5-5.1) Chloride Level 109 MMOL/L (98-107) 109 MMOL/L (98-107) 109 MMOL/L (98-107) Carbon Dioxide Level 22 MMOL/L (21-32) 25 MMOL/L (21-32) 24 MMOL/L (21-32) Anion Gap 12 mmol/L (5-15) 9 mmol/L (5-15) 9 mmol/L (5-15) Blood Urea Nitrogen 7 mg/dL (7-18) 7 mg/dL (7-18) 7 mg/dL (7-18) Creatinine 0.8 MG/DL (0.55-1.30) 0.8 MG/DL (0.55-1.30) 0.8 MG/DL (0.55-1.30) Estimat Glomerular Filtration Rate > 60 mL/min (>60) > 60 mL/min (>60) > 60 mL/min (>60) Glucose Level 108 MG/DL (74-106) 109 MG/DL (74-106) 99 MG/DL (74-106) Calcium Level 8.5 MG/DL (8.5-10.1) 8.5 MG/DL (8.5-10.1) 8.4 MG/DL (8.5-10.1) Total Bilirubin 0.3 MG/DL (0.2-1.0) 0.4 MG/DL (0.2-1.0) Aspartate Amino Transf (AST/SGOT) 19 U/L (15-37) 16 U/L (15-37) Alanine Aminotransferase (ALT/SGPT) 10 U/L (12-78) 6 U/L (12-78) Alkaline Phosphatase 67 U/L (46-116) 66 U/L (46-116) Total Protein 7.5 G/DL (6.4-8.2) 7.5 G/DL (6.4-8.2) Albumin 1.9 G/DL (3.4-5.0) 2.0 G/DL (3.4-5.0) Globulin 5.6 g/dL 5.5 g/dL Albumin/Globulin Ratio 0.3 (1.0-2.7) 0.4 (1.0-2.7) Erythrocyte Sedimentation Rate 125 MM/HR (0-30) Phosphorus Level 2.2 MG/DL (2.5-4.9) 2.5 MG/DL (2.5-4.9) Magnesium Level 1.5 MG/DL (1.8-2.4) 2.4 MG/DL (1.8-2.4) C-Reactive Protein, Quantitative 8.3 mg/dL (0.00-0.90) Vancomycin Level Trough 26.1 ug/mL (5.0-12.0) 15.2 ug/mL (5.0-12.0) Laboratory Tests Test 09/24/19 04:15 Sodium Level 142 MMOL/L (136-145) Potassium Level 3.3 MMOL/L (3.5-5.1) L Chloride Level 109 MMOL/L (98-107) H Carbon Dioxide Level 24 MMOL/L (21-32) Anion Gap 9 mmol/L (5-15) Blood Urea Nitrogen 7 mg/dL (7-18) Creatinine 0.8 MG/DL (0.55-1.30) Estimat Glomerular Filtration Rate > 60 mL/min (>60) Glucose Level 99 MG/DL (74-106) Calcium Level 8.4 MG/DL (8.5-10.1) L Phosphorus Level 2.5 MG/DL (2.5-4.9) Magnesium Level 2.4 MG/DL (1.8-2.4) Vancomycin Level Trough 15.2 ug/mL (5.0-12.0) H Current Medications Medications (Trade) Dose Ordered Sig/Rkystin Route PRN Reason Start Time Stop Time Status Last Admin Dose Admin Amlodipine Besylate (Norvasc) 5 mg DAILY ORAL 09/12/19 09:00 09/28/19 08:59 09/23/19 08:27 Cefepime HCl 2 gm/ Sodium Chloride 110 ml @ 220 mls/hr Q24H IVPB 09/16/19 21:00 10/04/19 23:59 09/23/19 20:37 Collagenase (Santyl) 1 applic DAILY TOPIC 09/12/19 09:00 10/06/19 16:59 09/24/19 08:31 Heparin Sodium (Porcine) (Heparin 5000 units/ml) 5,000 units EVERY 8 HOURS SUBQ 09/23/19 17:23 10/23/19 17:22 09/24/19 14:07 Insulin Aspart (NovoLOG) BEFORE MEALS AND HS SUBQ 09/11/19 21:00 09/29/19 20:59 09/24/19 17:05 Metronidazole (Flagyl) 500 mg Q8H ORAL 09/13/19 01:00 10/04/19 23:59 09/24/19 17:03 Sodium Chloride 1,000 ml @ 30 mls/hr Q24H IV 09/11/19 18:45 10/08/19 16:44 09/23/19 23:40 Vancomycin HCl (Vanco rx to dose) 1 ea DAILY PRN MISC Per rx protocol 09/12/19 08:45 10/12/19 08:44 Vancomycin HCl 750 mg/Sodium Chloride 275 ml @ 183.333 mls/hr Q24H IVPB 09/20/19 05:00 10/04/19 23:59 09/24/19 04:02 Gerardo Toledo MD Sep 24, 2019 20:56
[2019-09-24] MEDS: Cefepime HCl 2 GM in NS 110 ML IVPB SCH (20:58)
[2019-09-25] VITALS: BP 119/53
[2019-09-25] MEDS: metroNIDAZOLE 500mg tab ORAL SCH ×3 (00:02→17:13)
[2019-09-25 04:00] VITALS: BP 130/64
[2019-09-25] MEDS: Vancomycin 750 MG in NS 275 ML IVPB SCH (04:14)
[2019-09-25] MEDS: Heparin 5000 units/ml inj SUBQ SCH ×3 (05:02→21:33)
[2019-09-25] MEDS: NovoLOG Insulin Flexpen SUBQ SCH ×4 (05:45→20:32)
--- NOTE | 2019-09-25 07:11 | NUR ---
HAND-OFF: Report given to ISHAAN Augustin.
[2019-09-25 07:15] LABS: HEMATOCRIT 23.4 % (37.0-47.0); HEMOGLOBIN 7.5 G/DL (12.0-16.0); MEAN CORPUSCULAR VOLUME 85 FL (80-99); PLATELET COUNT 460 K/UL (150-450); RED BLOOD COUNT 2.77 M/UL (4.20-5.40); RED CELL DISTRIBUTION WIDTH 17.1 % (11.6-14.8); WHITE BLOOD COUNT 9.9 K/UL (4.8-10.8)
[2019-09-25 07:38] LABS: ANION GAP 12 mmol/L (5-15); BLOOD UREA NITROGEN 8 mg/dL (7-18); CALCIUM 8.1 MG/DL (8.5-10.1); CARBON DIOXIDE 22 MMOL/L (21-32); CHLORIDE 112 MMOL/L (98-107); CREATININE 0.9 MG/DL (0.55-1.30); POTASSIUM 3.9 MMOL/L (3.5-5.1); SODIUM 146 MMOL/L (136-145)
[2019-09-25 08:00] VITALS: BP 127/59
--- NOTE | 2019-09-25 11:20 | NUR ---
PT NOTE Attempted to see patient for PT treatment. Patient in bed with BLEs in flexed position. Attempted to extend BLEs however patient resisting due to pain B knees. Patient unable to participate with PT due to pain B knees. Demetria QUIROS notified, will follow.
[2019-09-25 12:00] VITALS: BP 123/67
--- NOTE | 2019-09-25 12:00 | NUR ---
NURSE NOTES: Dr. Gaston made his round and Rn relayed abnormal lab result of hemoglobin of 7.5, Magnesium of 1.7, sodium of 146 and Rn also relayed that patient complains of leg pain when moved. Dr. Gaston will put some orders.
[2019-09-25] MEDS ORDERED: oxyCODONE 5mg IR tab ORAL PRN (12:15)
[2019-09-25] MEDS ORDERED: traMADol 50mg tab ORAL PRN (12:15)
[2019-09-25] MEDS ORDERED: Sodium Phosphate 15 MM in NS 275 ML IVPB ONE (13:00)
--- NOTE | 2019-09-25 13:04 | Cardiac Electrophysiology PN ---
Assessment/Plan Assessment/Plan 1. NSTEMI type 2 due to renal failure with creatinine 1.7. Troponins low level between 0.5 and 0.7. No CP. ECG LBBB Nl EF and no vegetations. On aspirin. Off statin for rhabdomyolysis. Off beta lisbeth for bradycardia 2. Hypertension. On Norvasc 5 3. LBBB and sinus dorian in 30s. Resolved 4. Nonsustained VT. 5. Acute on chronic diastolic CHF. Echo Nl EF. 6. Urinary tract infection, on IV antibiotic. 7. 4/4 Strep Bacteremia with WBC 25K. Down to 6 K on Abx No endocarditis. ERIBERTO on 09/10/19 no vegetation. 8. S/P Renal failure. Resolved 9. Uncontrolled diabetes 10. Left toe ulcer. On iv Abx. CLEM RN Subjective Subjective No events on iv Abx. Comfortable in NAD. Objective Last 24 Hour Vital Signs Date Time Temp Pulse Resp B/P (MAP) Pulse Ox O2 Delivery O2 Flow Rate FiO2 09/25/19 09:00 Room Air 09/25/19 08:30 87 127/59 09/25/19 08:00 98.1 87 20 127/59 (81) 98 09/25/19 04:00 98.3 97 20 130/64 (86) 100 09/25/19 00:00 98.9 85 20 119/53 (75) 98 09/24/19 23:33 Room Air 09/24/19 20:00 97.4 94 18 121/59 (79) 98 09/24/19 16:00 98.4 90 18 127/58 (81) 98 Intake and Output 09/24/19 09/25/19 19:00 07:00 Intake Total 800 ml 400 ml Output Total 400 ml 400 ml Balance 400 ml 0 ml Intake Oral 410 ml 100 ml IV Total 390 ml 300 ml Output Urine Total 400 ml 400 ml # Bowel Movements 1 1 Laboratory Tests Test 09/24/19 21:10 09/25/19 05:22 Ferritin 88 NG/ML (8-388) White Blood Count 9.9 K/UL (4.8-10.8) Red Blood Count 2.77 M/UL (4.20-5.40) L Hemoglobin 7.5 G/DL (12.0-16.0) L Hematocrit 23.4 % (37.0-47.0) L Mean Corpuscular Volume 85 FL (80-99) Mean Corpuscular Hemoglobin 27.1 PG (27.0-31.0) Mean Corpuscular Hemoglobin Concent 32.0 G/DL (32.0-36.0) Red Cell Distribution Width 17.1 % (11.6-14.8) H Platelet Count 460 K/UL (150-450) H Mean Platelet Volume 5.7 FL (6.5-10.1) L Neutrophils (%) (Auto) % (45.0-75.0) Lymphocytes (%) (Auto) % (20.0-45.0) Monocytes (%) (Auto) % (1.0-10.0) Eosinophils (%) (Auto) % (0.0-3.0) Basophils (%) (Auto) % (0.0-2.0) Differential Total Cells Counted 100 Neutrophils % (Manual) 81 % (45-75) H Lymphocytes % (Manual) 12 % (20-45) L Monocytes % (Manual) 6 % (1-10) Eosinophils % (Manual) 1 % (0-3) Basophils % (Manual) 0 % (0-2) Band Neutrophils 0 % (0-8) Platelet Estimate Adequate Platelet Morphology Normal Hypochromasia 3+ Anisocytosis 1+ Spherocytes 1+ Sodium Level 146 MMOL/L (136-145) H Potassium Level 3.9 MMOL/L (3.5-5.1) Chloride Level 112 MMOL/L (98-107) H Carbon Dioxide Level 22 MMOL/L (21-32) Anion Gap 12 mmol/L (5-15) Blood Urea Nitrogen 8 mg/dL (7-18) Creatinine 0.9 MG/DL (0.55-1.30) Estimat Glomerular Filtration Rate 59.4 mL/min (>60) Glucose Level 90 MG/DL (74-106) Calcium Level 8.1 MG/DL (8.5-10.1) L Phosphorus Level 2.0 MG/DL (2.5-4.9) L Magnesium Level 1.7 MG/DL (1.8-2.4) L Objective HEAD AND NECK: No JVD LUNGS: Clear. CARDIOVASCULAR: Regular S1 and S2 with no gallop or murmur. ABDOMEN: Soft. EXTREMITIES: Left toe ulcer covered with dressing Luis Purdy MD Sep 25, 2019 13:04
--- NOTE | 2019-09-25 14:55 | NUR ---
CASE MANAGEMENT:REVIEW SI;LEFT FOOT OSTEOMYELITIS. 98.9 97 20 130/67 98% ON RA H/H 7.5/23.4 NA+ 146 CA+ 8.1 PHOS 2.0 MG 1.7 IS;Na PHOS IV VANCOMYCIN IV Q24 HRS CEFEPIME IV Q24 HRS FALGYL PO Q8 HRS IVF NS @ 30 ML/HR SANTYL TOP QD MED SURG STATUS DCP;FROM HOME
[2019-09-25 16:00] VITALS: BP 129/71
--- NOTE | 2019-09-25 16:09 | NUR ---
WEEKLY SWALLOW/SPEECH THERAPY SUMMARY: SEEN FOR DYSPHAGIA, SEE SWALLOW EVAL REPORT. PATIENT NOT ALERT FOR PO TRIALS NOW. GOALS MET FOR NEW STAFF EDUCATED/TRAINED IN POSTED ASP PRECAUTIONS. GOALS FOR INTAKE NOT MET (25-50%) [facility] PUREED LIKE NECTAR THICK SOUP CONSISTENCY. STILL NEEDS HIGH HUNTER SUP. PER DIGITAL FORENSIC EXAMINER, TERESA, SLOW INTAKE AND MINIMAL TONGUE MOVEMENT AND THE LIQUID TENDS TO MOVE WITH GRAVITY BUT NO OVERT S/S OF ASPIRATION. LESS INTAKE COMPARED TO LAST WEEK. LAST CXR 09/07/19: IMPRESSION: 1. Interval mild improvement in the diffusely increased interstitial markings compared to the prior exam, suggesting improved pulmonary interstitial edema. 2. Linear atelectasis at the periphery of the left mid lung. 3. Possible small left pleural effusion. UNABLE TO HAVE MOD BARIUM SWALLOW STUDY DUE TO NOT ALERT AND SCHEDULE CONFLICTS. PLAN: CONTINUE WITH COMFORT FEEDING (SINCE PT HAS SIGNIFICANT DEMENTIA AND PD) CURRENT DIET WITH POSTED ASP PREC MOD BARIUM SWALLOW STUDY WHEN READY IP OR OP IF DC
[2019-09-25] MEDS ORDERED: Tubing IV Secondary IV ONE (16:29)
--- NOTE | 2019-09-25 19:35 | NUR ---
HAND-OFF: Report given to Dahiana.
--- NOTE | 2019-09-25 19:37 | NUR ---
NURSE NOTES: Received patient awake in bed, no s/s of acute distress, confused but able to make needs known, fatigued. IV access patent, asymptomatic, running IVF maintenance. Patient on P200 mattress. Buckner catheter noted, patent, patient tolerating well. Bed low and locked, patient wearing non slip socks.
--- NOTE | 2019-09-25 19:53 | General Progress Note ---
Assessment/Plan Status: stable Assessment/Plan: 84-year-old lady from [facility] with history of hypertension, uncontrolled diabetes, and Parkinson disease, who was brought to the emergency room by family member for altered mental status and weakness. #Osteomyelitis left foot/ 1st toe #Severe PVD #Severe sepsis #Group B strep, ESBL UTI and bacteremia - vancomycin, cefepime, flagyl - day # 32. will need 6 weeks IV abx treatment for osteomyelitis - ERIBERTO negative for vegetation. surveillance cultures are negative - wound culture right foot with normal maximino but likely polymicrobial infection - monitor labs, recent chest x-ray negative - d/w Dr. Mcfadden, surgery and podiatry f/u - diflucan for 5 days for persistent fungal uti - ID consult appreciated -General surgery consult appreciated #Uncontrolled DM II - A1c 9-->insulin sliding scale ac/hs, change to resistant scale, fsbg controlled #Parkinson's disease #Dementia - c/w PD regimen - supportive care - delirium precautions #NSTEMI #HFpEF #HTN - heparin gtt per acs protocol, DC per cards, no chest pain, stable troponin. Continue ASA, beta lisbeth (Lopressor 25), hold off on statin due to rhabdomyolysis. Decreased Lopressor to 12.5 mg bid due to low heart rate, eventually had to stop due to bradycardia on 08/29 - trend tn/ekg - s/p lasix 40 mg BID -Echocardiogram Nl EF -continue amlodipine - cardiology consult appreciated #OWEN due to ATN resolved avoid nephrotoxin medications #Hypokalemia #Hypernatremia resolved #Hypophosphatemia Replace as needed #stage II sacral decubitus ulcer Appreciate wound consult Wound care Buckner in place for healing of wound Pain regimen DVT ppx: HSQ Code status: Full -discussed goals of care with family at bedside 09/15/2019 Time spent on patient care, 29 mins, >50% on counseling and coordination of care Time of this note may not reflect the time of the clinical encounter. Subjective Allergies: Coded Allergies: No Known Allergies (Unverified , 10/23/13) Subjective No acute events overnight per nursing. Patient has dementia at baseline. Unable to collect further subjective history. No other changes. Afebrile vital signs stable. ROS unable to obtain. Not answering questions Objective Last 24 Hour Vital Signs Date Time Temp Pulse Resp B/P (MAP) Pulse Ox O2 Delivery O2 Flow Rate FiO2 09/25/19 16:00 97.8 90 17 129/71 (90) 97 09/25/19 12:00 97.9 95 19 123/67 (85) 98 09/25/19 09:00 Room Air 09/25/19 08:30 87 127/59 09/25/19 08:00 98.1 87 20 127/59 (81) 98 09/25/19 04:00 98.3 97 20 130/64 (86) 100 09/25/19 00:00 98.9 85 20 119/53 (75) 98 09/24/19 23:33 Room Air 09/24/19 20:00 97.4 94 18 121/59 (79) 98 Intake and Output 09/24/19 09/25/19 19:00 07:00 Intake Total 800 ml 400 ml Output Total 400 ml 400 ml Balance 400 ml 0 ml Intake Oral 410 ml 100 ml IV Total 390 ml 300 ml Output Urine Total 400 ml 400 ml # Bowel Movements 1 1 Laboratory Tests 09/24/19 21:10: Ferritin 88 09/25/19 05:22: White Blood Count 9.9, Red Blood Count 2.77L, Hemoglobin 7.5L, Hematocrit 23.4L , Mean Corpuscular Volume 85, Mean Corpuscular Hemoglobin 27.1, Mean Corpuscular Hemoglobin Concent 32.0, Red Cell Distribution Width 17.1H, Platelet Count 460H, Mean Platelet Volume 5.7L, Neutrophils (%) (Auto) , Lymphocytes (%) (Auto) , Monocytes (%) (Auto) , Eosinophils (%) (Auto) , Basophils (%) (Auto) , Differential Total Cells Counted 100, Neutrophils % ( Manual) 81H, Lymphocytes % (Manual) 12L, Monocytes % (Manual) 6, Eosinophils % ( Manual) 1, Basophils % (Manual) 0, Band Neutrophils 0, Platelet Estimate Adequate, Platelet Morphology Normal, Hypochromasia 3+, Anisocytosis 1+, Spherocytes 1+, Sodium Level 146H, Potassium Level 3.9, Chloride Level 112H, Carbon Dioxide Level 22, Anion Gap 12, Blood Urea Nitrogen 8, Creatinine 0.9, Estimat Glomerular Filtration Rate 59.4, Glucose Level 90, Calcium Level 8.1L, Phosphorus Level 2.0L, Magnesium Level 1.7L Height (Feet): 5 Height (Inches): 3.00 Weight (Pounds): 127 Objective General: WDWN female in NAD, A&O x 1 HEENT: Normocephalic cephalic atraumatic, pupils equal round reactive to light and accommodation, nares patent and no symmetrical, no tonsillar exudates, mucous membranes moist CV: Regular rate regular rhythm, no murmurs, rubs, or gallops Pulm: Lungs clear to auscultation bilaterally. No wheezes, rhonchi, or rales GI: Soft, nontender, nondistended, bowel sounds present Neuro: CN 2-12 intact bilaterally, no focal signs. Ext: No lower extremity edema bilaterally. Trey all 4 extremities. : Buckner in place draining yellow urine Skin: Stage II sacral decubitus ulcer. No drainage, bleeding. (Unchanged) Msk: Joints symmetrical in upper extremity and lower extremity bilaterally, no joint swelling. Lymph: No lymphadenopathy in upper extremity and lower extremity Donell King D.O. Sep 25, 2019 19:53
[2019-09-25 20:00] VITALS: BP 122/55
[2019-09-25] MEDS: Cefepime HCl 2 GM in NS 110 ML IVPB SCH (20:32)
[2019-09-26] VITALS: BP 114/51
[2019-09-26] MEDS: metroNIDAZOLE 500mg tab ORAL SCH ×3 (01:07→16:51)
[2019-09-26 04:00] VITALS: BP 116/50
[2019-09-26] MEDS: Vancomycin 750 MG in NS 275 ML IVPB SCH (05:14)
[2019-09-26] MEDS: Heparin 5000 units/ml inj SUBQ SCH ×3 (05:18→21:14)
[2019-09-26] MEDS: NovoLOG Insulin Flexpen SUBQ SCH ×4 (06:03→20:57)
--- NOTE | 2019-09-26 07:25 | NUR ---
HAND-OFF: Report given to ISHAAN Oglesby.
--- NOTE | 2019-09-26 07:34 | NUR ---
NURSE NOTES: Received report from Annmarie, patient in semi-Peguero's position, sleeping, respirations at 14 breaths per minute, on room air, in no apparent distress, bed in lowest position, call light within reach.
[2019-09-26 08:00] VITALS: BP 118/58
--- NOTE | 2019-09-26 11:33 | NUR ---
CASE MANAGEMENT:REVIEW SI;LEFT FOOT OSTEOMYELITIS. 98.5 88 19 122/55 96% ON RA NO LABS AVAILABLE IS;D5 IV @ 50 ML/HR VANCOMYCIN IV Q24 HRS CEFEPIME IV Q24 HRS FALGYL PO Q8 HRS SANTYL TOP QD OXYCODONE PO Q6 HRS PRN MED SURG STATUS PLAN;IV ABX X6 WEEKS (DAY #33) DCP;FROM HOME
[2019-09-26 12:00] VITALS: BP 118/59
--- NOTE | 2019-09-26 12:29 | Hematology/Onc Progress Note ---
Assessment/Plan Assessment/Plan # Anemia of chronic disease due to underlying chronic medical issues, multifactorial v iron deficiency --> Anemia workup has been ordered, rule out gi bleed seen gi --> No evidence of hemolysis is noted, peripheral smear has been reviewed. --> Hgb goal >7. Transfuse prn. --> Epogen or iron at this time is not particularly indicated --> Medications have been reviewed --> low threshold for gi evaluation in case has occult + --> hgb 7.9-->7.5 # Thrombocytosis is likely reactive from multiple wounds, esbl bactremeia --> abx per id --> likely to downtrend shortly # NSTEMI type 2 as per cards, Dr. Purdy --> Nl EF and no vegetations. On aspirin. Off statin for rhabdomyolysis # Hypertension. On Norvasc 5 # Acute on chronic diastolic CHF. Echo Nl EF. # Urinary tract infection, on IV antibiotic. # 11/08 Strep Bacteremia with WBC 25K. Down to 6 K on Abx --> No endocarditis. ERIBERTO on 09/10/19 no vegetation. # Uncontrolled diabetes # Left toe ulcer. On iv Abx. # Dvt ppx heparin sq Appreciate consultation, brianne RN Subjective Constitutional: Denies: no symptoms, chills, fever, malaise, weakness, other HEENT: Denies: no symptoms, eye pain, blurred vision, tearing, double vision, ear pain, ear discharge, nose pain, nose congestion, throat pain, throat swelling, mouth pain, mouth swelling, other Gastrointestinal/Abdominal: Denies: no symptoms, abdomen distended, abdominal pain, black stools, tarry stools, blood in stool, constipated, diarrhea, difficulty swallowing, nausea, poor appetite, poor fluid intake, rectal bleeding , vomiting, other Genitourinary: Denies: no symptoms, burning, discharge, frequency, flank pain, hematuria, incontinence, pain, urgency, other Neurologic/Psychiatric: Denies: no symptoms, anxiety, depressed, emotional problems, headache, numbness, paresthesia, pre-existing deficit, seizure, tingling, tremors, weakness, other Endocrine: Denies: no symptoms, excessive sweating, flushing, intolerance to cold, intolerance to heat, increased hunger, increased thirst, increased urine, unexplained weight gain, unexplained weight loss, other Hematologic/Lymphatic: Denies: no symptoms, anemia, easy bleeding, easy bruising, adenopathy, other Allergies: Coded Allergies: No Known Allergies (Unverified , 10/23/13) Subjective 09/26: no bleeding,labs reviewed, no night sweats, no hemolysis hgb is 7.5 Objective Objective Current Medications Medications (Trade) Dose Ordered Sig/Krystin Route PRN Reason Start Time Stop Time Status Last Admin Dose Admin Amlodipine Besylate (Norvasc) 5 mg DAILY ORAL 09/12/19 09:00 09/28/19 08:59 09/26/19 09:47 Cefepime HCl 2 gm/ Sodium Chloride 110 ml @ 220 mls/hr Q24H IVPB 09/16/19 21:00 10/04/19 23:59 09/25/19 20:32 Collagenase (Santyl) 1 applic DAILY TOPIC 09/12/19 09:00 10/06/19 16:59 09/26/19 09:47 Dextrose 1,000 ml @ 50 mls/hr Q20H IV 09/26/19 00:30 10/26/19 00:29 09/26/19 01:07 Heparin Sodium (Porcine) (Heparin 5000 units/ml) 5,000 units EVERY 8 HOURS SUBQ 09/23/19 17:23 10/23/19 17:22 09/26/19 05:18 Insulin Aspart (NovoLOG) BEFORE MEALS AND HS SUBQ 09/11/19 21:00 09/29/19 20:59 09/25/19 20:32 Metronidazole (Flagyl) 500 mg Q8H ORAL 09/13/19 01:00 10/04/19 23:59 09/26/19 09:47 Oxycodone HCl (Roxicodone) 5 mg Q6H PRN ORAL Breakthrough Pain 09/25/19 12:15 10/02/19 12:14 Oxycodone HCl (Roxicodone) 5 mg Q6H PRN ORAL severe pain 09/25/19 12:15 10/02/19 12:14 Sodium Chloride 1,000 ml @ 30 mls/hr Q24H IV 09/11/19 18:45 10/08/19 16:44 09/25/19 13:21 Tramadol HCl (Ultram) 50 mg Q6H PRN ORAL moderate pain 09/25/19 12:15 10/02/19 12:14 Vancomycin HCl (Vanco rx to dose) 1 ea DAILY PRN MISC Per rx protocol 09/12/19 08:45 10/12/19 08:44 Vancomycin HCl 750 mg/Sodium Chloride 275 ml @ 183.333 mls/hr Q24H IVPB 09/20/19 05:00 10/04/19 23:59 09/26/19 05:14 Last 24 Hour Vital Signs Date Time Temp Pulse Resp B/P (MAP) Pulse Ox O2 Delivery O2 Flow Rate FiO2 09/26/19 09:47 83 118/58 09/26/19 08:00 98.1 83 19 118/58 (78) 97 09/26/19 04:00 98.5 85 19 116/50 (72) 96 09/26/19 00:00 97.7 88 19 114/51 (72) 97 09/25/19 21:00 Room Air 09/25/19 20:00 98.1 88 19 122/55 (77) 97 09/25/19 16:00 97.8 90 17 129/71 (90) 97 09/25/19 12:00 97.9 95 19 123/67 (85) 98 09/25/19 09:00 Room Air 09/25/19 08:30 87 127/59 09/25/19 08:00 98.1 87 20 127/59 (81) 98 09/25/19 04:00 98.3 97 20 130/64 (86) 100 09/25/19 00:00 98.9 85 20 119/53 (75) 98 09/24/19 23:33 Room Air 09/24/19 20:00 97.4 94 18 121/59 (79) 98 09/24/19 16:00 98.4 90 18 127/58 (81) 98 Intake and Output 09/25/19 09/26/19 19:00 07:00 Intake Total 670.546 ml 320.273 ml Output Total 900 ml 50 ml Balance -229.454 ml 270.273 ml Intake Oral 200 ml IV Total 470.546 ml 320.273 ml Output Urine Total 900 ml 50 ml Labs Test 09/24/19 04:15 09/24/19 21:10 09/25/19 05:22 Sodium Level 142 MMOL/L (136-145) 146 MMOL/L (136-145) Potassium Level 3.3 MMOL/L (3.5-5.1) 3.9 MMOL/L (3.5-5.1) Chloride Level 109 MMOL/L (98-107) 112 MMOL/L (98-107) Carbon Dioxide Level 24 MMOL/L (21-32) 22 MMOL/L (21-32) Anion Gap 9 mmol/L (5-15) 12 mmol/L (5-15) Blood Urea Nitrogen 7 mg/dL (7-18) 8 mg/dL (7-18) Creatinine 0.8 MG/DL (0.55-1.30) 0.9 MG/DL (0.55-1.30) Estimat Glomerular Filtration Rate > 60 mL/min (>60) 59.4 mL/min (>60) Glucose Level 99 MG/DL (74-106) 90 MG/DL (74-106) Calcium Level 8.4 MG/DL (8.5-10.1) 8.1 MG/DL (8.5-10.1) Phosphorus Level 2.5 MG/DL (2.5-4.9) 2.0 MG/DL (2.5-4.9) Magnesium Level 2.4 MG/DL (1.8-2.4) 1.7 MG/DL (1.8-2.4) Vancomycin Level Trough 15.2 ug/mL (5.0-12.0) Ferritin 88 NG/ML (8-388) White Blood Count 9.9 K/UL (4.8-10.8) Red Blood Count 2.77 M/UL (4.20-5.40) Hemoglobin 7.5 G/DL (12.0-16.0) Hematocrit 23.4 % (37.0-47.0) Mean Corpuscular Volume 85 FL (80-99) Mean Corpuscular Hemoglobin 27.1 PG (27.0-31.0) Mean Corpuscular Hemoglobin Concent 32.0 G/DL (32.0-36.0) Red Cell Distribution Width 17.1 % (11.6-14.8) Platelet Count 460 K/UL (150-450) Mean Platelet Volume 5.7 FL (6.5-10.1) Neutrophils (%) (Auto) % (45.0-75.0) Lymphocytes (%) (Auto) % (20.0-45.0) Monocytes (%) (Auto) % (1.0-10.0) Eosinophils (%) (Auto) % (0.0-3.0) Basophils (%) (Auto) % (0.0-2.0) Differential Total Cells Counted 100 Neutrophils % (Manual) 81 % (45-75) Lymphocytes % (Manual) 12 % (20-45) Monocytes % (Manual) 6 % (1-10) Eosinophils % (Manual) 1 % (0-3) Basophils % (Manual) 0 % (0-2) Band Neutrophils 0 % (0-8) Platelet Estimate Adequate Platelet Morphology Normal Hypochromasia 3+ Anisocytosis 1+ Spherocytes 1+ Height (Feet): 5 Height (Inches): 3.00 Weight (Pounds): 127 Objective gen: confused pulm:: crackles b/l heent: nc, at neck supple cv: rrr, no mgr abd: soft, nt nd ext: wounds on lower ext left toe ulceration covered dressing++ Nehemiah Randhawa MD Sep 26, 2019 12:29
[2019-09-26 13:27] LABS: HEMATOCRIT 23.5 % (37.0-47.0); HEMOGLOBIN 7.5 G/DL (12.0-16.0); MEAN CORPUSCULAR VOLUME 85 FL (80-99); PLATELET COUNT 423 K/UL (150-450); RED BLOOD COUNT 2.76 M/UL (4.20-5.40); RED CELL DISTRIBUTION WIDTH 17.2 % (11.6-14.8); WHITE BLOOD COUNT 8.5 K/UL (4.8-10.8)
--- NOTE | 2019-09-26 13:39 | NUR ---
RD ASSESSMENT & RECOMMENDATIONS SEE CARE ACTIVITY FOR COMPLETE ASSESSMENT DAILY ESTIMATED NEEDS: Needs based on Wounds, DM 49kg 30-35 kcals/kg 9711-2910 total kcals 1.25-2 g protein/kg 61-98 g total protein 25-30ml/kcal mL/kg 5538-7273 total fluid mLs NUTRITION DIAGNOSIS: Increased kcal and pro needs r/t wound healing as evidenced by pt w/ multiple areas of skin breakdown including unstageable L hip wounds x2, refer to WC eval for full assessment, pt w/ poor intake. CURRENT DIET:CCHO MED, liquify pureed moist w/ NTL PO DIET RECOMMENDATIONS: Liberalized REGULAR / texture per MENTAL HEALTH AIDE + Glucerna TID w/ meals ENTERAL NUTRITION RECOMMENDATIONS: REC NON ORAL FEEDS IF PART OF POC TO MEET EST NUTRITIONAL NEEDS ADDITIONAL RECOMMENDATIONS: 1) Glucerna TID w/ meals added; Encourage HS snack intake 2) Monitor for hypoglycemica w/ poor PO- now w/ added D5 3) Wound care: if tolerated ANTONIA BID + Vit C 250mg BID + MVI w/ min q daily 4) Calibrated bed scale wts daily, EMR appear stable 5) Rec appetite stimulant due to prolonged poor PO intake - consider nonoral feeds w/ continued poor PO
[2019-09-26 13:54] LABS: ANION GAP 9 mmol/L (5-15); BLOOD UREA NITROGEN 10 mg/dL (7-18); CALCIUM 8.3 MG/DL (8.5-10.1); CARBON DIOXIDE 25 MMOL/L (21-32); CHLORIDE 110 MMOL/L (98-107); CREATININE 0.9 MG/DL (0.55-1.30); FERRITIN 119 NG/ML (8-388); PHOSPHORUS 2.4 MG/DL (2.5-4.9); POTASSIUM 3.4 MMOL/L (3.5-5.1); SODIUM 144 MMOL/L (136-145)
[2019-09-26 13:56] LABS: % IRON SATURATION 28 % (15-50); IRON 27 ug/dL (50-175); TOTAL IRON BINDING CAPACITY 98 ug/dL (250-450)
[2019-09-26 16:00] VITALS: BP 160/84
--- NOTE | 2019-09-26 17:44 | Cardiac Electrophysiology PN ---
Assessment/Plan Assessment/Plan 1. NSTEMI type 2 due to renal failure with creatinine 1.7. Troponins low level between 0.5 and 0.7. No CP. ECG LBBB Nl EF and no vegetations. On aspirin. Off statin for rhabdomyolysis. Off beta lisbeth for bradycardia 2. Hypertension. On Norvasc 5 daily 3. LBBB and sinus dorian in 30s. Resolved 4. Nonsustained VT. 5. Acute on chronic diastolic CHF. Echo Nl EF. 6. Urinary tract infection, on IV antibiotic. 7. 4/4 Strep Bacteremia with WBC 25K. Down to 6 K on Abx No endocarditis. ERIBERTO on 09/10/19 no vegetation. 8. S/P Renal failure. Resolved 9. Uncontrolled diabetes 10. Left toe ulcer. On iv Abx. CLEM RN Subjective Subjective Comfortable in NAD on abx. Objective Last 24 Hour Vital Signs Date Time Temp Pulse Resp B/P (MAP) Pulse Ox O2 Delivery O2 Flow Rate FiO2 09/26/19 12:00 98.5 82 18 118/59 (78) 95 09/26/19 09:47 83 118/58 09/26/19 09:00 Room Air 09/26/19 08:00 98.1 83 19 118/58 (78) 97 09/26/19 04:00 98.5 85 19 116/50 (72) 96 09/26/19 00:00 97.7 88 19 114/51 (72) 97 09/25/19 21:00 Room Air 09/25/19 20:00 98.1 88 19 122/55 (77) 97 Intake and Output 09/25/19 09/26/19 19:00 07:00 Intake Total 670.546 ml 645.273 ml Output Total 900 ml 50 ml Balance -229.454 ml 595.273 ml Intake Oral 200 ml IV Total 470.546 ml 645.273 ml Output Urine Total 900 ml 50 ml Laboratory Tests Test 09/26/19 13:10 White Blood Count 8.5 K/UL (4.8-10.8) Red Blood Count 2.76 M/UL (4.20-5.40) L Hemoglobin 7.5 G/DL (12.0-16.0) L Hematocrit 23.5 % (37.0-47.0) L Mean Corpuscular Volume 85 FL (80-99) Mean Corpuscular Hemoglobin 27.1 PG (27.0-31.0) Mean Corpuscular Hemoglobin Concent 31.9 G/DL (32.0-36.0) L Red Cell Distribution Width 17.2 % (11.6-14.8) H Platelet Count 423 K/UL (150-450) Mean Platelet Volume 5.5 FL (6.5-10.1) L Neutrophils (%) (Auto) % (45.0-75.0) Lymphocytes (%) (Auto) % (20.0-45.0) Monocytes (%) (Auto) % (1.0-10.0) Eosinophils (%) (Auto) % (0.0-3.0) Basophils (%) (Auto) % (0.0-2.0) Differential Total Cells Counted 100 Neutrophils % (Manual) 86 % (45-75) H Lymphocytes % (Manual) 10 % (20-45) L Monocytes % (Manual) 4 % (1-10) Eosinophils % (Manual) 0 % (0-3) Basophils % (Manual) 0 % (0-2) Band Neutrophils 0 % (0-8) Platelet Estimate Adequate Platelet Morphology Normal Hypochromasia 3+ Anisocytosis 1+ Sodium Level 144 MMOL/L (136-145) Potassium Level 3.4 MMOL/L (3.5-5.1) L Chloride Level 110 MMOL/L (98-107) H Carbon Dioxide Level 25 MMOL/L (21-32) Anion Gap 9 mmol/L (5-15) Blood Urea Nitrogen 10 mg/dL (7-18) Creatinine 0.9 MG/DL (0.55-1.30) Estimat Glomerular Filtration Rate 59.4 mL/min (>60) Glucose Level 176 MG/DL (74-106) H Calcium Level 8.3 MG/DL (8.5-10.1) L Phosphorus Level 2.4 MG/DL (2.5-4.9) L Magnesium Level 1.9 MG/DL (1.8-2.4) Iron Level 27 ug/dL (50-175) L Total Iron Binding Capacity 98 ug/dL (250-450) L Percent Iron Saturation 28 % (15-50) Unsaturated Iron Binding 71 ug/dL (112-346) L Ferritin 119 NG/ML (8-388) Objective HEAD AND NECK: No JVD LUNGS: Clear. CARDIOVASCULAR: Regular S1 and S2 with no gallop or murmur. ABDOMEN: Soft. EXTREMITIES: Left toe ulcer covered with dressing Luis Purdy MD Sep 26, 2019 17:44
--- NOTE | 2019-09-26 18:08 | Infectious Diseases Prog Note ---
Assessment/Plan Assessment/Plan ASSESSMENT AND PLAN: 1. streptococcus agalactiae - group b bacteremia, ? endocarditis, esbl e.coli uti, sirs, leukocytosis, ? pna on chest x-ray - ? hcap/aspiration vs pulmonary edema, left foot great toe/1st toe wound infection - MRI c/w osteomyelitis, elevated sed rate f/u urine culture with persistent yeast - vancomycin, cefepime, flagyl - day # 34 of abx, will need 6 weeks treatment for osteomyelitis - CRP improved significantly - 20.6 to 8.3, sed rate still elevated at 125 - ERIBERTO negative for vegetation, s/p tx for bacteremia - wound culture right foot with normal maximino but likely polymicrobial infection - monitor labs, recent chest x-ray negative - surgery note reviewed - left foot improving - s/p diflucan 2. Acute kidney injury with elevated creatinine. 3. History of diabetes. 4. weakness 5. Blood pressure treatment per primary care team and diabetes treatment per primary care team and consultants. 6. Parkinson's. 7. Dementia. 8. The patient does have also elevated troponin. Cardiology follow-up. 9. MAR was noted. 10. Case was discussed with RN. 11. No known allergies. 12. Social history is negative. 13. Family history is noncontributory. 14. Continue treatment per primary consultants. 15. Orders were noted and entered. Subjective Constitutional: Reports: fatigue; Denies: fever HEENT: Denies: congestion Respiratory: Denies: shortness of breath Cardiovascular: Denies: chest pain Gastrointestinal/Abdominal: Denies: nausea, vomiting, diarrhea Genitourinary: Reports: other - + arnold Neurologic: Denies: headache Psychiatric: Reports: other - NA Skin: Denies: rash Hematologic: Denies: bleeding Musculoskeletal: Denies: pain Allergies: Coded Allergies: No Known Allergies (Unverified , 10/23/13) Objective Vital Signs Last 24 Hour Vital Signs Date Time Temp Pulse Resp B/P (MAP) Pulse Ox O2 Delivery O2 Flow Rate FiO2 09/26/19 16:00 98.4 94 18 160/84 (109) 99 09/26/19 12:00 98.5 82 18 118/59 (78) 95 09/26/19 09:47 83 118/58 09/26/19 09:00 Room Air 09/26/19 08:00 98.1 83 19 118/58 (78) 97 09/26/19 04:00 98.5 85 19 116/50 (72) 96 09/26/19 00:00 97.7 88 19 114/51 (72) 97 09/25/19 21:00 Room Air 09/25/19 20:00 98.1 88 19 122/55 (77) 97 Height (Feet): 5 Height (Inches): 3.00 Weight (Pounds): 127 General Appearance: no acute distress HEENT: normocephalic, atraumatic, anicteric, mucous membranes moist Respiratory/Chest: crackles/rales, rhonchi - bilaterally Cardiovascular: normal rate, regular rhythm, no gallop/murmur, no JVD Abdomen: normal bowel sounds, soft, non tender, no organomegaly, non distended Genitourinary: other - + arnold - urine slt cloudy Extremities: no cyanosis, other - wounds - covered Skin: no rash Neurologic/Psychiatric: nurses' registry director II-XII grossly normal, alert Lymphatic: no neck adenopathy Musculoskeletal: no effusion Objective Chest x-ray - FINDINGS: Lungs: Mild vascular congestion. Pleural space: Unremarkable. No pneumothorax. Heart: Borderline cardiomegaly, potentially exaggerated by portable technique. Mediastinum: Calcified aorta. Bones/joints: Osteopenia. Degenerative changes. IMPRESSION: Mild vascular congestion CT abdomen: Impression: Anasarca, as described, with generalized edema of subcutaneous abdominal fat, moderate-sized bilateral pleural effusions, pulmonary interstitial and airspace edema Compressive atelectasis of the lower lobes due to the pleural fluid Evidence of rectal fecal impaction and possible stercoral proctitis Pessary, likely malpositioned, as described. There is evidence of bladder floor relaxation despite the pessary Dilated extrahepatic bile ducts. Most likely related to patient's age as no downstream obstructive lesion is demonstrated. However, correlation with liver function tests is recommended, with consideration for MRCP if clinically indicated Questionable slight retrococcygeal decubitus changes. Correlate with findings Other findings as noted, including evidence of prior renal cortical scarring, Arnold catheter, uterine arcuate artery calcifications Chest x-ray - 09/05/19 - Indication: Cough Technique: One view of the chest Comparison: 08/24/2019 Findings: There is increased interstitial edema. There is evidence of left perihilar airspace disease There is suggestion of trace bilateral pleural effusions. The heart size is upper limits normal. Impression: Increased interstitial edema, since prior exam 08/24/2019 Suspect left perihilar consolidation Small bilateral pleural effusions Chest x-ray - 09/07/19 - IMPRESSION: 1. Interval mild improvement in the diffusely increased interstitial markings compared to the prior exam, suggesting improved pulmonary interstitial edema. 2. Linear atelectasis at the periphery of the left mid lung. 3. Possible small left pleural effusion. MRI left foot: IMPRESSION: Evidence of acute osteomyelitis involving the hallux as described above. Cellulitis. Microbiology Date/Time Source Procedure Growth Status 09/03/19 21:00 Blood Blood Culture - Final NO GROWTH AFTER 5 DAYS Complete 09/12/19 14:45 Indwelling Cath Urine Culture - Final Nehal Albicans Complete 09/07/19 13:12 Foot Left Gram Stain - Final Complete 09/07/19 13:12 Wound Culture - Final Usual Skin Maximino Complete Laboratory Tests Test 09/26/19 13:10 White Blood Count 8.5 K/UL (4.8-10.8) Red Blood Count 2.76 M/UL (4.20-5.40) L Hemoglobin 7.5 G/DL (12.0-16.0) L Hematocrit 23.5 % (37.0-47.0) L Mean Corpuscular Volume 85 FL (80-99) Mean Corpuscular Hemoglobin 27.1 PG (27.0-31.0) Mean Corpuscular Hemoglobin Concent 31.9 G/DL (32.0-36.0) L Red Cell Distribution Width 17.2 % (11.6-14.8) H Platelet Count 423 K/UL (150-450) Mean Platelet Volume 5.5 FL (6.5-10.1) L Neutrophils (%) (Auto) % (45.0-75.0) Lymphocytes (%) (Auto) % (20.0-45.0) Monocytes (%) (Auto) % (1.0-10.0) Eosinophils (%) (Auto) % (0.0-3.0) Basophils (%) (Auto) % (0.0-2.0) Differential Total Cells Counted 100 Neutrophils % (Manual) 86 % (45-75) H Lymphocytes % (Manual) 10 % (20-45) L Monocytes % (Manual) 4 % (1-10) Eosinophils % (Manual) 0 % (0-3) Basophils % (Manual) 0 % (0-2) Band Neutrophils 0 % (0-8) Platelet Estimate Adequate Platelet Morphology Normal Hypochromasia 3+ Anisocytosis 1+ Sodium Level 144 MMOL/L (136-145) Potassium Level 3.4 MMOL/L (3.5-5.1) L Chloride Level 110 MMOL/L (98-107) H Carbon Dioxide Level 25 MMOL/L (21-32) Anion Gap 9 mmol/L (5-15) Blood Urea Nitrogen 10 mg/dL (7-18) Creatinine 0.9 MG/DL (0.55-1.30) Estimat Glomerular Filtration Rate 59.4 mL/min (>60) Glucose Level 176 MG/DL (74-106) H Calcium Level 8.3 MG/DL (8.5-10.1) L Phosphorus Level 2.4 MG/DL (2.5-4.9) L Magnesium Level 1.9 MG/DL (1.8-2.4) Iron Level 27 ug/dL (50-175) L Total Iron Binding Capacity 98 ug/dL (250-450) L Percent Iron Saturation 28 % (15-50) Unsaturated Iron Binding 71 ug/dL (112-346) L Ferritin 119 NG/ML (8-388) Current Medications Medications (Trade) Dose Ordered Sig/Krystin Route PRN Reason Start Time Stop Time Status Last Admin Dose Admin Amlodipine Besylate (Norvasc) 5 mg DAILY ORAL 09/12/19 09:00 09/28/19 08:59 09/26/19 09:47 Cefepime HCl 2 gm/ Sodium Chloride 110 ml @ 220 mls/hr Q24H IVPB 09/16/19 21:00 10/04/19 23:59 09/25/19 20:32 Collagenase (Santyl) 1 applic DAILY TOPIC 09/12/19 09:00 10/06/19 16:59 09/26/19 09:47 Dextrose 1,000 ml @ 50 mls/hr Q20H IV 09/26/19 00:30 10/26/19 00:29 09/26/19 01:07 Heparin Sodium (Porcine) (Heparin 5000 units/ml) 5,000 units EVERY 8 HOURS SUBQ 09/23/19 17:23 10/23/19 17:22 09/26/19 13:13 Insulin Aspart (NovoLOG) BEFORE MEALS AND HS SUBQ 09/11/19 21:00 09/29/19 20:59 09/26/19 16:52 Metronidazole (Flagyl) 500 mg Q8H ORAL 09/13/19 01:00 10/04/19 23:59 09/26/19 16:51 Oxycodone HCl (Roxicodone) 5 mg Q6H PRN ORAL Breakthrough Pain 09/25/19 12:15 10/02/19 12:14 Oxycodone HCl (Roxicodone) 5 mg Q6H PRN ORAL severe pain 09/25/19 12:15 10/02/19 12:14 Sodium Chloride 1,000 ml @ 30 mls/hr Q24H IV 09/11/19 18:45 10/08/19 16:44 09/25/19 13:21 Tramadol HCl (Ultram) 50 mg Q6H PRN ORAL moderate pain 09/25/19 12:15 10/02/19 12:14 Vancomycin HCl (Vanco rx to dose) 1 ea DAILY PRN MISC Per rx protocol 09/12/19 08:45 10/12/19 08:44 Vancomycin HCl 750 mg/Sodium Chloride 275 ml @ 183.333 mls/hr Q24H IVPB 09/20/19 05:00 10/04/19 23:59 09/26/19 05:14 Gerardo Toledo MD Sep 26, 2019 18:08
--- NOTE | 2019-09-26 18:30 | NUR ---
NURSE NOTES:WOUND CARE FOLLOW-UP NOTES: Unstageable pressure injury Sacrum. Base of wound has 80% mixed soft necrosis and slough ,20%pink granulation.Macerated borders.(L)9cm x (W)8.5cm. Periwound skin tone is dark without erythema or induration. Resolving pressure injury L trochanter. [place] granulation at base of wound with dry pink epithelial borders. (L)2.2cm x (W)3.3cm. No odor or exudate noted. No evidence of skin breakdown periwound. Unstageable pressure injury L hallux.. Base of wound 100% necrotic with semidetached borders that are erythmatous and moist.(L)4.8cm x (W)5.7cm. Wound is malodorous. Periwound is fluctuant. Dorsal aspect of L foot is less dusky in comparison to last wound assessment. L 2nd metatarsal dusky. visited and assessed wounds.` Both heels are soft but blanchable. Tx.Plan: Cleanse wound Sacrum with Saline. Apply Nickel Thick layer of Santyl with Saline moistened gauze .Apply Moisture Barrier Paste periwound. Cover with Optifoam drsg Daily and prn. Apply Moisture Barrier Paste to L trochanter. Cover with Optifoam drsg. Change every 3 days and prn. Cleanse wound L Hallux. Apply Nickel Thick Layer Santyl with Saline moistened 2x2 gauze. Cover with Abd pad and wrap with Kerlix Daily and prn. Apply Cavilon Skin BArrier to both heels. Cover each heel with Optifoam drsg. Change every 7 days and prn. APM/YURIY Mattress overlay. Reposition at least every 2hours or as tolerated. Place pillow between knees. Off-load heels with pillow.
--- NOTE | 2019-09-26 19:28 | NUR ---
HAND-OFF: Report given to Darrin Hernandez RN. Patient in supine position, resting comfortably, respirations at 15 breaths per minute, on room air, in no apparent distress, pillow support, side rails up x 3, siderails padded, bed in lowest position, call light withinr eawch, IV patent in left upper arm running fluids for hydration.
--- NOTE | 2019-09-26 19:30 | NUR ---
NURSE NOTES: Received patient in bed. Patient is nonverbal. No signs of pain noted at this time. On room air, respirations even and unlabored. F/C in place draining yellow urine. IV in the left upper arm running IVF. Side rails padded for seizure precautions.
[2019-09-26 20:00] VITALS: BP 108/47
[2019-09-26] MEDS: Cefepime HCl 2 GM in NS 110 ML IVPB SCH (20:56)
--- NOTE | 2019-09-26 21:50 | General Progress Note ---
Assessment/Plan Status: stable Assessment/Plan: 84-year-old lady from [facility] with history of hypertension, uncontrolled diabetes, and Parkinson disease, who was brought to the emergency room by family member for altered mental status and weakness. #Osteomyelitis left foot/ 1st toe #Severe PVD #Severe sepsis #Group B strep, ESBL UTI and bacteremia - vancomycin, cefepime, flagyl - day # 32. will need 6 weeks IV abx treatment for osteomyelitis - ERIBERTO negative for vegetation. surveillance cultures are negative - wound culture right foot with normal maximino but likely polymicrobial infection - monitor labs, recent chest x-ray negative - d/w Dr. Mcfadden, surgery and podiatry f/u - diflucan for 5 days for persistent fungal uti - ID consult appreciated -General surgery consult appreciated #Uncontrolled DM II - A1c 9-->insulin sliding scale ac/hs, change to resistant scale, fsbg controlled #Parkinson's disease #Dementia - c/w PD regimen - supportive care - delirium precautions #NSTEMI #HFpEF #HTN - heparin gtt per acs protocol, DC per cards, no chest pain, stable troponin. Continue ASA, beta lisbeth (Lopressor 25), hold off on statin due to rhabdomyolysis. Decreased Lopressor to 12.5 mg bid due to low heart rate, eventually had to stop due to bradycardia on 08/29 - trend tn/ekg - s/p lasix 40 mg BID -Echocardiogram Nl EF -continue amlodipine - cardiology consult appreciated #OWEN due to ATN resolved avoid nephrotoxin medications #Hypokalemia #Hypernatremia resolved #Hypophosphatemia Replace as needed #stage II sacral decubitus ulcer Appreciate wound consult Wound care Buckner in place for healing of wound Pain regimen DVT ppx: HSQ Code status: Full -discussed goals of care with family at bedside 09/15/2019 Time spent on patient care, 29 mins, >50% on counseling and coordination of care Time of this note may not reflect the time of the clinical encounter. Subjective Allergies: Coded Allergies: No Known Allergies (Unverified , 10/23/13) Subjective No acute events overnight per nursing. Patient has dementia at baseline. Unable to collect further subjective history. No other changes. Afebrile vital signs stable. ROS unable to obtain. Not answering questions Objective Last 24 Hour Vital Signs Date Time Temp Pulse Resp B/P (MAP) Pulse Ox O2 Delivery O2 Flow Rate FiO2 09/26/19 16:00 98.4 94 18 160/84 (109) 99 09/26/19 12:00 98.5 82 18 118/59 (78) 95 09/26/19 09:47 83 118/58 09/26/19 09:00 Room Air 09/26/19 08:00 98.1 83 19 118/58 (78) 97 09/26/19 04:00 98.5 85 19 116/50 (72) 96 09/26/19 00:00 97.7 88 19 114/51 (72) 97 Intake and Output 09/25/19 09/26/19 19:00 07:00 Intake Total 670.546 ml 645.273 ml Output Total 900 ml 50 ml Balance -229.454 ml 595.273 ml Intake Oral 200 ml IV Total 470.546 ml 645.273 ml Output Urine Total 900 ml 50 ml Laboratory Tests 09/26/19 13:10: White Blood Count 8.5, Red Blood Count 2.76L, Hemoglobin 7.5L, Hematocrit 23.5L , Mean Corpuscular Volume 85, Mean Corpuscular Hemoglobin 27.1, Mean Corpuscular Hemoglobin Concent 31.9L, Red Cell Distribution Width 17.2H, Platelet Count 423, Mean Platelet Volume 5.5L, Neutrophils (%) (Auto) , Lymphocytes (%) (Auto) , Monocytes (%) (Auto) , Eosinophils (%) (Auto) , Basophils (%) (Auto) , Differential Total Cells Counted 100, Neutrophils % ( Manual) 86H, Lymphocytes % (Manual) 10L, Monocytes % (Manual) 4, Eosinophils % ( Manual) 0, Basophils % (Manual) 0, Band Neutrophils 0, Platelet Estimate Adequate, Platelet Morphology Normal, Hypochromasia 3+, Anisocytosis 1+, Sodium Level 144, Potassium Level 3.4L, Chloride Level 110H, Carbon Dioxide Level 25, Anion Gap 9, Blood Urea Nitrogen 10, Creatinine 0.9, Estimat Glomerular Filtration Rate 59.4, Glucose Level 176H, Calcium Level 8.3L, Phosphorus Level 2.4L, Magnesium Level 1.9, Iron Level 27L, Total Iron Binding Capacity 98L, Percent Iron Saturation 28, Unsaturated Iron Binding 71L, Ferritin 119 Height (Feet): 5 Height (Inches): 3.00 Weight (Pounds): 127 Objective General: WDWN female in NAD, A&O x 1 HEENT: Normocephalic cephalic atraumatic, pupils equal round reactive to light and accommodation, nares patent and no symmetrical, no tonsillar exudates, mucous membranes moist CV: Regular rate regular rhythm, no murmurs, rubs, or gallops Pulm: Lungs clear to auscultation bilaterally. No wheezes, rhonchi, or rales GI: Soft, nontender, nondistended, bowel sounds present Neuro: CN 2-12 intact bilaterally, no focal signs. Ext: No lower extremity edema bilaterally. Trey all 4 extremities. : Buckner in place draining yellow urine Skin: Stage II sacral decubitus ulcer. No drainage, bleeding. (Unchanged) Msk: Joints symmetrical in upper extremity and lower extremity bilaterally, no joint swelling. Lymph: No lymphadenopathy in upper extremity and lower extremity Donell King D.O. Sep 26, 2019 21:50
--- NOTE | 2019-09-26 22:43 | General Progress Note ---
Assessment/Plan Status: stable Assessment/Plan: 84-year-old lady from [facility], [place] with history of hypertension, uncontrolled diabetes, and Parkinson disease, who was brought to the emergency room by family member for altered mental status and weakness. #Osteomyelitis left foot/ 1st toe #Severe PVD #Severe sepsis #Group B strep, ESBL UTI and bacteremia - vancomycin, cefepime, flagyl - day # 32. will need 6 weeks IV abx treatment for osteomyelitis - ERIBERTO negative for vegetation. surveillance cultures are negative - wound culture right foot with normal maximino but likely polymicrobial infection - monitor labs, recent chest x-ray negative - d/w Dr. Mcfadden, surgery and podiatry f/u - diflucan for 5 days for persistent fungal uti - ID consult appreciated -General surgery consult appreciated #Uncontrolled DM II - A1c 9-->insulin sliding scale ac/hs, change to resistant scale, fsbg controlled #Parkinson's disease #Dementia - c/w PD regimen - supportive care - delirium precautions #NSTEMI #HFpEF #HTN - heparin gtt per acs protocol, DC per cards, no chest pain, stable troponin. Continue ASA, beta lisbeth (Lopressor 25), hold off on statin due to rhabdomyolysis. Decreased Lopressor to 12.5 mg bid due to low heart rate, eventually had to stop due to bradycardia on 08/29 - trend tn/ekg - s/p lasix 40 mg BID -Echocardiogram Nl EF -continue amlodipine - cardiology consult appreciated #OWEN due to ATN resolved avoid nephrotoxin medications #Hypokalemia #Hypernatremia resolved #Hypophosphatemia Replace as needed Continue to monitor #stage II sacral decubitus ulcer Appreciate wound consult Wound care Buckner in place for healing of wound Pain regimen DVT ppx: HSQ Code status: Full -discussed goals of care with family at bedside 09/15/2019 Time spent on patient care, 30 mins, >50% on counseling and coordination of care Time of this note may not reflect the time of the clinical encounter. Subjective Date patient seen: Sep 26, 2019 Allergies: Coded Allergies: No Known Allergies (Unverified , 10/23/13) Subjective No acute events overnight per nursing. Patient has dementia at baseline. Unable to collect further subjective history. No other changes. Afebrile vital signs stable. No changes ROS unable to obtain. Not answering questions Objective Last 24 Hour Vital Signs Date Time Temp Pulse Resp B/P (MAP) Pulse Ox O2 Delivery O2 Flow Rate FiO2 09/26/19 20:00 99.0 85 21 108/47 (67) 98 09/26/19 16:00 98.4 94 18 160/84 (109) 99 09/26/19 12:00 98.5 82 18 118/59 (78) 95 09/26/19 09:47 83 118/58 09/26/19 09:00 Room Air 09/26/19 08:00 98.1 83 19 118/58 (78) 97 09/26/19 04:00 98.5 85 19 116/50 (72) 96 09/26/19 00:00 97.7 88 19 114/51 (72) 97 Intake and Output 09/25/19 09/26/19 19:00 07:00 Intake Total 670.546 ml 645.273 ml Output Total 900 ml 50 ml Balance -229.454 ml 595.273 ml Intake Oral 200 ml IV Total 470.546 ml 645.273 ml Output Urine Total 900 ml 50 ml Laboratory Tests 09/26/19 13:10: White Blood Count 8.5, Red Blood Count 2.76L, Hemoglobin 7.5L, Hematocrit 23.5L , Mean Corpuscular Volume 85, Mean Corpuscular Hemoglobin 27.1, Mean Corpuscular Hemoglobin Concent 31.9L, Red Cell Distribution Width 17.2H, Platelet Count 423, Mean Platelet Volume 5.5L, Neutrophils (%) (Auto) , Lymphocytes (%) (Auto) , Monocytes (%) (Auto) , Eosinophils (%) (Auto) , Basophils (%) (Auto) , Differential Total Cells Counted 100, Neutrophils % ( Manual) 86H, Lymphocytes % (Manual) 10L, Monocytes % (Manual) 4, Eosinophils % ( Manual) 0, Basophils % (Manual) 0, Band Neutrophils 0, Platelet Estimate Adequate, Platelet Morphology Normal, Hypochromasia 3+, Anisocytosis 1+, Sodium Level 144, Potassium Level 3.4L, Chloride Level 110H, Carbon Dioxide Level 25, Anion Gap 9, Blood Urea Nitrogen 10, Creatinine 0.9, Estimat Glomerular Filtration Rate 59.4, Glucose Level 176H, Calcium Level 8.3L, Phosphorus Level 2.4L, Magnesium Level 1.9, Iron Level 27L, Total Iron Binding Capacity 98L, Percent Iron Saturation 28, Unsaturated Iron Binding 71L, Ferritin 119 Height (Feet): 5 Height (Inches): 3.00 Weight (Pounds): 127 Objective General: WDWN female in NAD, A&O x 1. Resting in bed HEENT: Normocephalic cephalic atraumatic, pupils equal round reactive to light and accommodation, nares patent and no symmetrical, no tonsillar exudates, mucous membranes moist CV: Regular rate regular rhythm, no murmurs, rubs, or gallops Pulm: Lungs clear to auscultation bilaterally. No wheezes, rhonchi, or rales GI: Soft, nontender, nondistended, bowel sounds present Neuro: CN 2-12 intact bilaterally, no focal signs. Ext: No lower extremity edema bilaterally. Trey all 4 extremities. : Buckner in place draining yellow urine Skin: Stage II sacral decubitus ulcer. No drainage, bleeding. (Unchanged) Msk: Joints symmetrical in upper extremity and lower extremity bilaterally, no joint swelling. Lymph: No lymphadenopathy in upper extremity and lower extremity Donell King D.O. Sep 26, 2019 22:43
[2019-09-27] VITALS (7 sets, daily range): BP systolic 98–137; BP diastolic 48–66
[2019-09-27] MEDS: metroNIDAZOLE 500mg tab ORAL SCH ×3 (00:31→18:24)
[2019-09-27 04:31] LABS: HEMATOCRIT 20.7 % (37.0-47.0); MEAN CORPUSCULAR VOLUME 84 FL (80-99); PLATELET COUNT 362 K/UL (150-450); RED BLOOD COUNT 2.47 M/UL (4.20-5.40); RED CELL DISTRIBUTION WIDTH 17.5 % (11.6-14.8); WHITE BLOOD COUNT 7.7 K/UL (4.8-10.8)
[2019-09-27 04:49] LABS: ANION GAP 7 mmol/L (5-15); BLOOD UREA NITROGEN 8 mg/dL (7-18); CALCIUM 7.9 MG/DL (8.5-10.1); CARBON DIOXIDE 25 MMOL/L (21-32); CHLORIDE 109 MMOL/L (98-107); CREATININE 0.8 MG/DL (0.55-1.30); PHOSPHORUS 1.8 MG/DL (2.5-4.9); POTASSIUM 3.3 MMOL/L (3.5-5.1); SODIUM 141 MMOL/L (136-145)
[2019-09-27] MEDS: Vancomycin 750 MG in NS 275 ML IVPB SCH (05:01)
[2019-09-27 05:29] LABS: HEMOGLOBIN 6.7 G/DL (12.0-16.0)
[2019-09-27] MEDS: Heparin 5000 units/ml inj SUBQ SCH ×2 (05:33→14:00)
--- NOTE | 2019-09-27 06:00 | NUR ---
NURSE NOTES: Received call from lab for abnormal labs. Notified Dr. Randhawa of Hgb level. Awaiting response.
[2019-09-27] MEDS: NovoLOG Insulin Flexpen SUBQ SCH ×4 (06:14→20:19)
--- NOTE | 2019-09-27 07:25 | NUR ---
nurse notes received patient resting comfortably in bed, sleeping . no sign of distress, IV site swollen, IVF stopped, kept patient clean dry and comfortable in bed, will continue to monitor patient condition joel garcia
--- NOTE | 2019-09-27 07:26 | NUR ---
HAND-OFF: Report given to Adali RN. Endorsed to RN of the Hgb level and attempts to contact family for consent.
--- NOTE | 2019-09-27 08:07 | NUR ---
NURSE NOTES: Received report from ISHAAN Bro (M. Aggarao). Patient sleeping. On room air, no signs of distress or labored breathing. Bed in lowest position with call light in reach. Side rails up x3. Will continue with plan of care and follow up consent for blood transfusion.
--- NOTE | 2019-09-27 11:06 | Cardiac Electrophysiology PN ---
Assessment/Plan Assessment/Plan 1. NSTEMI type 2 due to renal failure with creatinine 1.7. Troponins low level and flat. No CP. ECG LBBB Nl EF and no vegetations. On aspirin. Off statin for rhabdomyolysis. Off beta lisbeth for bradycardia 2. Hypertension. On Norvasc 5 daily 3. LBBB and sinus dorian in 30s. Resolved 4. Nonsustained VT. 5. Acute on chronic diastolic CHF. Echo Nl EF. 6. Urinary tract infection, on IV antibiotic. 7. 4/4 Strep Bacteremia with WBC 25K. Down to 6 K on Abx No endocarditis. ERIBERTO on 09/10/19 no vegetation. 8. S/P Renal failure. Resolved 9. Uncontrolled diabetes 10. Left toe ulcer. On iv Abx. CLEM RN Subjective Subjective Comfortable in NAD on abx and alert. Objective Last 24 Hour Vital Signs Date Time Temp Pulse Resp B/P (MAP) Pulse Ox O2 Delivery O2 Flow Rate FiO2 09/27/19 09:59 80 124/55 09/27/19 09:58 80 124/55 (78) 09/27/19 04:00 99.5 74 19 109/53 (71) 95 09/27/19 00:00 98.9 82 21 98/48 (65) 98 09/26/19 21:00 Room Air 09/26/19 20:00 99.0 85 21 108/47 (67) 98 09/26/19 16:00 98.4 94 18 160/84 (109) 99 09/26/19 12:00 98.5 82 18 118/59 (78) 95 Intake and Output 09/26/19 09/27/19 19:00 07:00 Intake Total 1180 ml 450 ml Output Total 1100 ml Balance 1180 ml -650 ml Intake Oral 680 ml IV Total 500 ml 450 ml Output Urine Total 1100 ml # Voids 4 Laboratory Tests Test 09/26/19 13:10 09/27/19 04:12 White Blood Count 8.5 K/UL (4.8-10.8) 7.7 K/UL (4.8-10.8) Red Blood Count 2.76 M/UL (4.20-5.40) L 2.47 M/UL (4.20-5.40) L Hemoglobin 7.5 G/DL (12.0-16.0) L 6.7 G/DL (12.0-16.0) *L Hematocrit 23.5 % (37.0-47.0) L 20.7 % (37.0-47.0) L Mean Corpuscular Volume 85 FL (80-99) 84 FL (80-99) Mean Corpuscular Hemoglobin 27.1 PG (27.0-31.0) 27.1 PG (27.0-31.0) Mean Corpuscular Hemoglobin Concent 31.9 G/DL (32.0-36.0) L 32.3 G/DL (32.0-36.0) Red Cell Distribution Width 17.2 % (11.6-14.8) H 17.5 % (11.6-14.8) H Platelet Count 423 K/UL (150-450) 362 K/UL (150-450) Mean Platelet Volume 5.5 FL (6.5-10.1) L 5.4 FL (6.5-10.1) L Neutrophils (%) (Auto) % (45.0-75.0) % (45.0-75.0) Lymphocytes (%) (Auto) % (20.0-45.0) % (20.0-45.0) Monocytes (%) (Auto) % (1.0-10.0) % (1.0-10.0) Eosinophils (%) (Auto) % (0.0-3.0) % (0.0-3.0) Basophils (%) (Auto) % (0.0-2.0) % (0.0-2.0) Differential Total Cells Counted 100 Neutrophils % (Manual) 86 % (45-75) H Lymphocytes % (Manual) 10 % (20-45) L Monocytes % (Manual) 4 % (1-10) Eosinophils % (Manual) 0 % (0-3) Basophils % (Manual) 0 % (0-2) Band Neutrophils 0 % (0-8) Platelet Estimate Adequate Platelet Morphology Normal Hypochromasia 3+ Anisocytosis 1+ Sodium Level 144 MMOL/L (136-145) 141 MMOL/L (136-145) Potassium Level 3.4 MMOL/L (3.5-5.1) L 3.3 MMOL/L (3.5-5.1) L Chloride Level 110 MMOL/L (98-107) H 109 MMOL/L (98-107) H Carbon Dioxide Level 25 MMOL/L (21-32) 25 MMOL/L (21-32) Anion Gap 9 mmol/L (5-15) 7 mmol/L (5-15) Blood Urea Nitrogen 10 mg/dL (7-18) 8 mg/dL (7-18) Creatinine 0.9 MG/DL (0.55-1.30) 0.8 MG/DL (0.55-1.30) Estimat Glomerular Filtration Rate 59.4 mL/min (>60) > 60 mL/min (>60) Glucose Level 176 MG/DL (74-106) H 197 MG/DL (74-106) H Calcium Level 8.3 MG/DL (8.5-10.1) L 7.9 MG/DL (8.5-10.1) L Phosphorus Level 2.4 MG/DL (2.5-4.9) L 1.8 MG/DL (2.5-4.9) L Magnesium Level 1.9 MG/DL (1.8-2.4) 1.6 MG/DL (1.8-2.4) L Iron Level 27 ug/dL (50-175) L Total Iron Binding Capacity 98 ug/dL (250-450) L Percent Iron Saturation 28 % (15-50) Unsaturated Iron Binding 71 ug/dL (112-346) L Ferritin 119 NG/ML (8-388) Vancomycin Level Trough 17.1 ug/mL (5.0-12.0) H Objective HEAD AND NECK: No JVD LUNGS: Clear. CARDIOVASCULAR: Regular S1 and S2 with no gallop or murmur. ABDOMEN: Soft. EXTREMITIES: Left toe ulcer covered with dressing Luis Purdy MD Sep 27, 2019 11:06
[2019-09-27] MEDS ORDERED: Sodium Phosphate 30 MM in NS 275 ML IVPB ONE (13:00)
--- NOTE | 2019-09-27 16:39 | Hematology/Onc Progress Note ---
Assessment/Plan Assessment/Plan # Anemia of chronic disease due to underlying chronic medical issues, multifactorial v iron deficiency --> Anemia workup has been ordered, rule out gi bleed seen gi --> No evidence of hemolysis is noted, peripheral smear has been reviewed. --> Hgb goal >7. Transfuse prn. --> Epogen or iron at this time is not particularly indicated --> Medications have been reviewed --> low threshold for gi evaluation in case has occult + --> hgb 7.9-->7.5->6.7 --> OCULT BLOOD--> if + gi debra # Thrombocytosis is likely reactive from multiple wounds, esbl bactremeia --> abx per id --> likely to downtrend shortly # NSTEMI type 2 as per cards, Dr. Purdy --> Nl EF and no vegetations. On aspirin. Off statin for rhabdomyolysis # Hypertension. On Norvasc 5 # Acute on chronic diastolic CHF. Echo Nl EF. # Urinary tract infection, on IV antibiotic. # 11/08 Strep Bacteremia with WBC 25K. Down to 6 K on Abx --> No endocarditis. ERIBERTO on 09/10/19 no vegetation. # Uncontrolled diabetes # Left toe ulcer. On iv Abx. # Dvt ppx heparin sq Appreciate consultation, brianne RN Subjective Constitutional: Denies: no symptoms, chills, fever, malaise, weakness, other HEENT: Denies: no symptoms, eye pain, blurred vision, tearing, double vision, ear pain, ear discharge, nose pain, nose congestion, throat pain, throat swelling, mouth pain, mouth swelling, other Cardiovascular: Denies: no symptoms, chest pain, edema, irregular heart rate, lightheadedness, palpitations, syncope, other Respiratory: Denies: no symptoms, cough, shortness of breath, SOB with excertion, SOB at rest, sputum, wheezing, other Genitourinary: Denies: no symptoms, burning, discharge, frequency, flank pain, hematuria, incontinence, pain, urgency, other Neurologic/Psychiatric: Denies: no symptoms, anxiety, depressed, emotional problems, headache, numbness, paresthesia, pre-existing deficit, seizure, tingling, tremors, weakness, other Hematologic/Lymphatic: Denies: no symptoms, anemia, easy bleeding, easy bruising, adenopathy, other Allergies: Coded Allergies: No Known Allergies (Unverified , 10/23/13) Subjective 09/26: no bleeding,labs reviewed, no night sweats, no hemolysis hgb is 7.5 09/27: hgb lower again, will order occult blood, dw pcp Objective Objective Current Medications Medications (Trade) Dose Ordered Sig/Krystin Route PRN Reason Start Time Stop Time Status Last Admin Dose Admin Amlodipine Besylate (Norvasc) 5 mg DAILY ORAL 09/12/19 09:00 09/28/19 08:59 09/27/19 09:59 Cefepime HCl 2 gm/ Sodium Chloride 110 ml @ 220 mls/hr Q24H IVPB 09/16/19 21:00 10/04/19 23:59 09/26/19 20:56 Collagenase (Santyl) 1 applic DAILY TOPIC 09/12/19 09:00 10/06/19 16:59 09/27/19 09:36 Dextrose 1,000 ml @ 50 mls/hr Q20H IV 09/26/19 00:30 10/26/19 00:29 09/26/19 20:56 Heparin Sodium (Porcine) (Heparin 5000 units/ml) 5,000 units EVERY 8 HOURS SUBQ 09/23/19 17:23 10/23/19 17:22 09/27/19 05:33 Insulin Aspart (NovoLOG) BEFORE MEALS AND HS SUBQ 09/11/19 21:00 09/29/19 20:59 09/27/19 06:14 Metronidazole (Flagyl) 500 mg Q8H ORAL 09/13/19 01:00 10/04/19 23:59 09/27/19 09:24 Oxycodone HCl (Roxicodone) 5 mg Q6H PRN ORAL Breakthrough Pain 09/25/19 12:15 10/02/19 12:14 Oxycodone HCl (Roxicodone) 5 mg Q6H PRN ORAL severe pain 09/25/19 12:15 10/02/19 12:14 Sodium Chloride 1,000 ml @ 30 mls/hr Q24H IV 09/11/19 18:45 10/08/19 16:44 09/26/19 18:17 Sodium Phosphate 30 mm/Sodium Chloride 285 ml @ 47.5 mls/hr ONCE ONCE IVPB 09/27/19 13:00 09/27/19 18:59 Tramadol HCl (Ultram) 50 mg Q6H PRN ORAL moderate pain 09/25/19 12:15 10/02/19 12:14 Vancomycin HCl (Vanco rx to dose) 1 ea DAILY PRN MISC Per rx protocol 09/12/19 08:45 10/12/19 08:44 Vancomycin HCl 750 mg/Sodium Chloride 275 ml @ 183.333 mls/hr Q24H IVPB 09/20/19 05:00 10/04/19 23:59 09/27/19 05:01 Last 24 Hour Vital Signs Date Time Temp Pulse Resp B/P (MAP) Pulse Ox O2 Delivery O2 Flow Rate FiO2 09/27/19 12:00 97.6 80 18 123/53 (76) 97 09/27/19 09:59 80 124/55 09/27/19 09:58 80 124/55 (78) 09/27/19 09:00 Room Air 09/27/19 08:00 98.3 65 19 111/66 (81) 99 09/27/19 04:00 99.5 74 19 109/53 (71) 95 09/27/19 00:00 98.9 82 21 98/48 (65) 98 09/26/19 21:00 Room Air 09/26/19 20:00 99.0 85 21 108/47 (67) 98 09/26/19 16:00 98.4 94 18 160/84 (109) 99 09/26/19 12:00 98.5 82 18 118/59 (78) 95 09/26/19 09:47 83 118/58 09/26/19 09:00 Room Air 09/26/19 08:00 98.1 83 19 118/58 (78) 97 09/26/19 04:00 98.5 85 19 116/50 (72) 96 09/26/19 00:00 97.7 88 19 114/51 (72) 97 09/25/19 21:00 Room Air 09/25/19 20:00 98.1 88 19 122/55 (77) 97 Intake and Output 09/26/19 09/27/19 19:00 07:00 Intake Total 1180 ml 450 ml Output Total 1100 ml Balance 1180 ml -650 ml Intake Oral 680 ml IV Total 500 ml 450 ml Output Urine Total 1100 ml # Voids 4 Labs Test 09/24/19 21:10 09/25/19 05:22 09/26/19 13:10 09/27/19 04:12 Ferritin 88 NG/ML (8-388) 119 NG/ML (8-388) White Blood Count 9.9 K/UL (4.8-10.8) 8.5 K/UL (4.8-10.8) 7.7 K/UL (4.8-10.8) Red Blood Count 2.77 M/UL (4.20-5.40) 2.76 M/UL (4.20-5.40) 2.47 M/UL (4.20-5.40) Hemoglobin 7.5 G/DL (12.0-16.0) 7.5 G/DL (12.0-16.0) 6.7 G/DL (12.0-16.0) Hematocrit 23.4 % (37.0-47.0) 23.5 % (37.0-47.0) 20.7 % (37.0-47.0) Mean Corpuscular Volume 85 FL (80-99) 85 FL (80-99) 84 FL (80-99) Mean Corpuscular Hemoglobin 27.1 PG (27.0-31.0) 27.1 PG (27.0-31.0) 27.1 PG (27.0-31.0) Mean Corpuscular Hemoglobin Concent 32.0 G/DL (32.0-36.0) 31.9 G/DL (32.0-36.0) 32.3 G/DL (32.0-36.0) Red Cell Distribution Width 17.1 % (11.6-14.8) 17.2 % (11.6-14.8) 17.5 % (11.6-14.8) Platelet Count 460 K/UL (150-450) 423 K/UL (150-450) 362 K/UL (150-450) Mean Platelet Volume 5.7 FL (6.5-10.1) 5.5 FL (6.5-10.1) 5.4 FL (6.5-10.1) Neutrophils (%) (Auto) % (45.0-75.0) % (45.0-75.0) % (45.0-75.0) Lymphocytes (%) (Auto) % (20.0-45.0) % (20.0-45.0) % (20.0-45.0) Monocytes (%) (Auto) % (1.0-10.0) % (1.0-10.0) % (1.0-10.0) Eosinophils (%) (Auto) % (0.0-3.0) % (0.0-3.0) % (0.0-3.0) Basophils (%) (Auto) % (0.0-2.0) % (0.0-2.0) % (0.0-2.0) Differential Total Cells Counted 100 100 Neutrophils % (Manual) 81 % (45-75) 86 % (45-75) Lymphocytes % (Manual) 12 % (20-45) 10 % (20-45) Monocytes % (Manual) 6 % (1-10) 4 % (1-10) Eosinophils % (Manual) 1 % (0-3) 0 % (0-3) Basophils % (Manual) 0 % (0-2) 0 % (0-2) Band Neutrophils 0 % (0-8) 0 % (0-8) Platelet Estimate Adequate Adequate Platelet Morphology Normal Normal Hypochromasia 3+ 3+ Anisocytosis 1+ 1+ Spherocytes 1+ Sodium Level 146 MMOL/L (136-145) 144 MMOL/L (136-145) 141 MMOL/L (136-145) Potassium Level 3.9 MMOL/L (3.5-5.1) 3.4 MMOL/L (3.5-5.1) 3.3 MMOL/L (3.5-5.1) Chloride Level 112 MMOL/L (98-107) 110 MMOL/L (98-107) 109 MMOL/L (98-107) Carbon Dioxide Level 22 MMOL/L (21-32) 25 MMOL/L (21-32) 25 MMOL/L (21-32) Anion Gap 12 mmol/L (5-15) 9 mmol/L (5-15) 7 mmol/L (5-15) Blood Urea Nitrogen 8 mg/dL (7-18) 10 mg/dL (7-18) 8 mg/dL (7-18) Creatinine 0.9 MG/DL (0.55-1.30) 0.9 MG/DL (0.55-1.30) 0.8 MG/DL (0.55-1.30) Estimat Glomerular Filtration Rate 59.4 mL/min (>60) 59.4 mL/min (>60) > 60 mL/min (>60) Glucose Level 90 MG/DL (74-106) 176 MG/DL (74-106) 197 MG/DL (74-106) Calcium Level 8.1 MG/DL (8.5-10.1) 8.3 MG/DL (8.5-10.1) 7.9 MG/DL (8.5-10.1) Phosphorus Level 2.0 MG/DL (2.5-4.9) 2.4 MG/DL (2.5-4.9) 1.8 MG/DL (2.5-4.9) Magnesium Level 1.7 MG/DL (1.8-2.4) 1.9 MG/DL (1.8-2.4) 1.6 MG/DL (1.8-2.4) Iron Level 27 ug/dL (50-175) Total Iron Binding Capacity 98 ug/dL (250-450) Percent Iron Saturation 28 % (15-50) Unsaturated Iron Binding 71 ug/dL (112-346) Vancomycin Level Trough 17.1 ug/mL (5.0-12.0) Height (Feet): 5 Height (Inches): 3.00 Weight (Pounds): 127 Objective gen: confused pulm:: crackles b/l heent: nc, at neck supple cv: rrr, no mgr abd: soft, nt nd ext: wounds on lower ext left toe ulceration covered dressing++ Nehemiah Randhawa MD Sep 27, 2019 16:39
--- NOTE | 2019-09-27 18:44 | General Progress Note ---
Assessment/Plan Status: stable Assessment/Plan: 84-year-old lady from [facility] with history of hypertension, uncontrolled diabetes, and Parkinson disease, who was brought to the emergency room by family member for altered mental status and weakness. #Osteomyelitis left foot/ 1st toe #Severe PVD #Severe sepsis #Group B strep, ESBL UTI and bacteremia - vancomycin, cefepime, flagyl - day # 32. will need 6 weeks IV abx treatment for osteomyelitis - ERIBERTO negative for vegetation. surveillance cultures are negative - wound culture right foot with normal maximino but likely polymicrobial infection - monitor labs, recent chest x-ray negative - d/w Dr. Mcfadden, surgery and podiatry f/u - diflucan for 5 days for persistent fungal uti - ID consult appreciated -General surgery consult appreciated #Anemia, rule out acute blood loss. rule out GI bleed. - stool OB sent - appreciate Heme/onc recs - transfuse 1 unit PRBC 09/27/19. Consent obtained from family - trend CBC #Hypokalemia #Hypernatremia resolved #Hypophosphatemia Replace as needed Continue to monitor #Uncontrolled DM II - A1c 9-->insulin sliding scale ac/hs, change to resistant scale, fsbg controlled #Parkinson's disease #Dementia - c/w PD regimen - supportive care - delirium precautions #NSTEMI #HFpEF #HTN - heparin gtt per acs protocol, DC per cards, no chest pain, stable troponin. Continue ASA, beta lisbeth (Lopressor 25), hold off on statin due to rhabdomyolysis. Decreased Lopressor to 12.5 mg bid due to low heart rate, eventually had to stop due to bradycardia on 08/29 - trend tn/ekg - s/p lasix 40 mg BID -Echocardiogram Nl EF -continue amlodipine - cardiology consult appreciated #OWEN due to ATN resolved avoid nephrotoxin medications #stage II sacral decubitus ulcer Appreciate wound consult Wound care Buckner in place for healing of wound Pain regimen DVT ppx: HSQ Code status: Full -discussed goals of care with family at bedside 09/15/2019 Time spent on patient care, 38 mins, >50% on counseling and coordination of care Time of this note may not reflect the time of the clinical encounter. Subjective Date patient seen: Sep 27, 2019 Allergies: Coded Allergies: No Known Allergies (Unverified , 10/23/13) Subjective No acute events overnight per nursing. Hgb Down to 6.7. No obvious source of bleeding at this time. potassium, mag and phos all low as well. Repleted. Patient has dementia at baseline. Unable to collect further subjective history. No other changes. Afebrile vital signs stable. No changes ROS unable to obtain. Not answering questions Objective Last 24 Hour Vital Signs Date Time Temp Pulse Resp B/P (MAP) Pulse Ox O2 Delivery O2 Flow Rate FiO2 09/27/19 16:00 98.7 98 18 137/59 (85) 98 09/27/19 12:00 97.6 80 18 123/53 (76) 97 09/27/19 09:59 80 124/55 09/27/19 09:58 80 124/55 (78) 09/27/19 09:00 Room Air 09/27/19 08:00 98.3 65 19 111/66 (81) 99 09/27/19 04:00 99.5 74 19 109/53 (71) 95 09/27/19 00:00 98.9 82 21 98/48 (65) 98 09/26/19 21:00 Room Air 09/26/19 20:00 99.0 85 21 108/47 (67) 98 Intake and Output 09/26/19 09/27/19 19:00 07:00 Intake Total 1180 ml 450 ml Output Total 1100 ml Balance 1180 ml -650 ml Intake Oral 680 ml IV Total 500 ml 450 ml Output Urine Total 1100 ml # Voids 4 Laboratory Tests 09/27/19 04:12: White Blood Count 7.7, Red Blood Count 2.47L, Hemoglobin 6.7*L, Hematocrit 20.7L , Mean Corpuscular Volume 84, Mean Corpuscular Hemoglobin 27.1, Mean Corpuscular Hemoglobin Concent 32.3, Red Cell Distribution Width 17.5H, Platelet Count 362, Mean Platelet Volume 5.4L, Neutrophils (%) (Auto) , Lymphocytes (%) (Auto) , Monocytes (%) (Auto) , Eosinophils (%) (Auto) , Basophils (%) (Auto) , Sodium Level 141, Potassium Level 3.3L, Chloride Level 109H, Carbon Dioxide Level 25, Anion Gap 7, Blood Urea Nitrogen 8, Creatinine 0.8, Estimat Glomerular Filtration Rate > 60, Glucose Level 197H, Calcium Level 7.9L, Phosphorus Level 1.8L, Magnesium Level 1.6L, Vancomycin Level Trough 17.1H Height (Feet): 5 Height (Inches): 3.00 Weight (Pounds): 127 Objective General: WDWN female in NAD, A&O x 1. Resting in bed HEENT: Normocephalic cephalic atraumatic, pupils equal round reactive to light and accommodation, nares patent and no symmetrical, no tonsillar exudates, mucous membranes moist CV: Regular rate regular rhythm, no murmurs, rubs, or gallops Pulm: Lungs clear to auscultation bilaterally. No wheezes, rhonchi, or rales GI: Soft, nontender, nondistended, bowel sounds present Neuro: CN 2-12 intact bilaterally, no focal signs. Ext: No lower extremity edema bilaterally. Trey all 4 extremities. ( unchanged) : Buckner in place draining yellow urine Skin: Stage II sacral decubitus ulcer. No drainage, bleeding. (Unchanged) Msk: Joints symmetrical in upper extremity and lower extremity bilaterally, no joint swelling. Lymph: No lymphadenopathy in upper extremity and lower extremity Donell King D.O. Sep 27, 2019 18:44
--- NOTE | 2019-09-27 19:16 | NUR ---
HAND-OFF: Report given to ISHAAN Clifford.
--- NOTE | 2019-09-27 19:20 | NUR ---
NURSE NOTES: Received patient in bed. Awake, alert x1. Patient is on room air, respirations unlabored. No signs of pain noted at this time. 1/2 siderails up, BLE elevated, SCD in place. IV in the Right AC infusing IVF well. F/C draining yellow urine, arnold anchor in place. Call light within reach.
[2019-09-27] MEDS: Cefepime HCl 2 GM in NS 110 ML IVPB SCH (20:15)
[2019-09-28] VITALS: BP 105/47
[2019-09-28] MEDS: metroNIDAZOLE 500mg tab ORAL SCH ×4 (01:37→23:59)
[2019-09-28 04:00] VITALS: BP 120/59
--- NOTE | 2019-09-28 04:30 | NUR ---
NURSE NOTES: 1 unit PRBC given. Pre-transfusion VS 99.0, 76, 109/46 at 02:18. VS after 15 minutes 98.1, 75, 109/49, patient stable. Post transfusion VS 98.1, 74, 120/59 patient stable, awake. No adverse transfusion reactions noted.
[2019-09-28] MEDS: Vancomycin 750 MG in NS 275 ML IVPB SCH (04:57)
[2019-09-28] MEDS: NovoLOG Insulin Flexpen SUBQ SCH ×4 (06:21→21:57)
--- NOTE | 2019-09-28 07:15 | NUR ---
HAND-OFF: Report given to Kimberly QUIROS.
--- NOTE | 2019-09-28 07:20 | NUR ---
NURSE NOTES: Received report from ISHAAN Clifford. Patient in bed, sleeping. On room air, no signs of distress or labored breathing. IVs intact, patent, and running IV fluids. Buckner intact, patent, and saline locked. Bed in lowest position. Will continue with plan of care.
[2019-09-28 07:53] LABS: ANION GAP 11 mmol/L (5-15); BLOOD UREA NITROGEN 8 mg/dL (7-18); CALCIUM 8.2 MG/DL (8.5-10.1); CARBON DIOXIDE 22 MMOL/L (21-32); CHLORIDE 109 MMOL/L (98-107); CREATININE 0.8 MG/DL (0.55-1.30); PHOSPHORUS 3.9 MG/DL (2.5-4.9); SODIUM 142 MMOL/L (136-145)
[2019-09-28 08:00] VITALS: BP 138/72
[2019-09-28 08:27] LABS: BASOPHILS % (AUTO) 0.9 % (0.0-2.0); EOSINOPHILS % (AUTO) 0.6 % (0.0-3.0); HEMATOCRIT 32.6 % (37.0-47.0); HEMOGLOBIN 10.8 G/DL (12.0-16.0); LYMPHOCYTES % (AUTO) 20.4 % (20.0-45.0); MEAN CORPUSCULAR VOLUME 87 FL (80-99); NEUTROPHILS % (AUTO) 68.1 % (45.0-75.0); PLATELET COUNT 352 K/UL (150-450); RED BLOOD COUNT 3.76 M/UL (4.20-5.40); RED CELL DISTRIBUTION WIDTH 15.9 % (11.6-14.8); WHITE BLOOD COUNT 8.8 K/UL (4.8-10.8)
[2019-09-28 12:00] VITALS: BP 125/59
--- NOTE | 2019-09-28 13:15 | NUR ---
NURSE NOTES: Spoke in person to Dr. Bhakta of [facility] concerning patient having two different IV fluids scheduled. NS and D5W. MD said she will review and make the necessary changes. RN asked if she should stop NS for now and stated to keep both IV fluids until she reviews. Charge nurse aware.
--- NOTE | 2019-09-28 13:26 | Cardiac Electrophysiology PN ---
Assessment/Plan Assessment/Plan 1. NSTEMI type 2 due to renal failure with creatinine 1.7. Troponins low level and flat. No CP. ECG LBBB Nl EF and no vegetations. On aspirin. Off statin for rhabdomyolysis. Off beta lisbeth for bradycardia 2. Hypertension. On Norvasc 5 daily 3. LBBB and sinus dorian in 30s. Resolved 4. Nonsustained VT. 5. Acute on chronic diastolic CHF. Echo Nl EF. 6. Urinary tract infection, on IV antibiotic. 7. 4/4 Strep Bacteremia with WBC 25K. Down to 8.8 K on Abx today No endocarditis. ERIBERTO on 09/10/19 no vegetation. 8. S/P Renal failure. Resolved 9. Uncontrolled diabetes 10. Left toe ulcer. On Abx. FU ID and podiatry DW RN Awaiting placement Subjective Subjective Comfortable in NAD on abx and awaiting placement Objective Last 24 Hour Vital Signs Date Time Temp Pulse Resp B/P (MAP) Pulse Ox O2 Delivery O2 Flow Rate FiO2 09/28/19 12:00 97.1 75 18 125/59 (81) 98 09/28/19 09:00 Room Air 09/28/19 08:00 98.8 74 18 138/72 (94) 95 09/28/19 04:00 98.1 74 18 120/59 (79) 98 09/28/19 00:00 98.9 86 21 105/47 (66) 95 09/27/19 21:00 Room Air 09/27/19 20:00 99.6 82 21 99/49 (66) 98 09/27/19 19:30 100.3 09/27/19 16:00 98.7 98 18 137/59 (85) 98 Intake and Output 09/27/19 09/28/19 19:00 07:00 Intake Total 120 ml 1180 ml Output Total 400 ml 600 ml Balance -280 ml 580 ml Intake Oral 120 ml IV Total 830 ml Blood Product 350 ml Output Urine Total 400 ml 600 ml Laboratory Tests Test 09/28/19 06:10 White Blood Count 8.8 K/UL (4.8-10.8) Red Blood Count 3.76 M/UL (4.20-5.40) L Hemoglobin 10.8 G/DL (12.0-16.0) #L Hematocrit 32.6 % (37.0-47.0) #L Mean Corpuscular Volume 87 FL (80-99) Mean Corpuscular Hemoglobin 28.8 PG (27.0-31.0) Mean Corpuscular Hemoglobin Concent 33.3 G/DL (32.0-36.0) Red Cell Distribution Width 15.9 % (11.6-14.8) H Platelet Count 352 K/UL (150-450) Mean Platelet Volume 5.6 FL (6.5-10.1) L Neutrophils (%) (Auto) 68.1 % (45.0-75.0) Lymphocytes (%) (Auto) 20.4 % (20.0-45.0) Monocytes (%) (Auto) 10.0 % (1.0-10.0) Eosinophils (%) (Auto) 0.6 % (0.0-3.0) Basophils (%) (Auto) 0.9 % (0.0-2.0) Sodium Level 142 MMOL/L (136-145) Potassium Level 4.0 MMOL/L (3.5-5.1) Chloride Level 109 MMOL/L (98-107) H Carbon Dioxide Level 22 MMOL/L (21-32) Anion Gap 11 mmol/L (5-15) Blood Urea Nitrogen 8 mg/dL (7-18) Creatinine 0.8 MG/DL (0.55-1.30) Estimat Glomerular Filtration Rate > 60 mL/min (>60) Glucose Level 147 MG/DL (74-106) H Calcium Level 8.2 MG/DL (8.5-10.1) L Phosphorus Level 3.9 MG/DL (2.5-4.9) Magnesium Level 2.1 MG/DL (1.8-2.4) Objective HEAD AND NECK: No JVD LUNGS: Clear. CARDIOVASCULAR: Regular S1 and S2 with no gallop or murmur. ABDOMEN: Soft. EXTREMITIES: Left toe ulcer covered with dressing Luis Purdy MD Sep 28, 2019 13:26
[2019-09-28 16:00] VITALS: BP 115/57
--- NOTE | 2019-09-28 16:00 | NUR ---
NURSE NOTES: OB Stool 1 of 3 sent to lab. Two more samples remaining to be obtain per Dr. Randhawa's order.
--- NOTE | 2019-09-28 16:50 | Infectious Diseases Prog Note ---
Assessment/Plan Assessment/Plan ASSESSMENT AND PLAN: 1. streptococcus agalactiae - group b bacteremia, ? endocarditis, esbl e.coli uti, sirs, leukocytosis, ? pna on chest x-ray - ? hcap/aspiration vs pulmonary edema, left foot great toe/1st toe wound infection - MRI c/w osteomyelitis, elevated sed rate f/u urine culture with persistent yeast - vancomycin, cefepime, flagyl - day # 36 of abx, will need 6 weeks treatment for osteomyelitis - CRP improved significantly - 20.6 to 8.3, sed rate still elevated at 125 - ERIBERTO negative for vegetation, s/p tx for bacteremia - wound culture right foot with normal maximino but likely polymicrobial infection - monitor labs, recent chest x-ray negative - surgery note reviewed - left foot improving - s/p diflucan 2. Acute kidney injury with elevated creatinine. 3. History of diabetes. 4. weakness 5. Blood pressure treatment per primary care team and diabetes treatment per primary care team and consultants. 6. Parkinson's. 7. Dementia. 8. The patient does have also elevated troponin. Cardiology follow-up. 9. MAR was noted. 10. Case was discussed with RN. 11. No known allergies. 12. Social history is negative. 13. Family history is noncontributory. 14. Continue treatment per primary consultants. 15. Orders were noted and entered. Subjective Constitutional: Denies: fever HEENT: Denies: congestion Respiratory: Denies: shortness of breath Cardiovascular: Denies: chest pain Gastrointestinal/Abdominal: Denies: nausea Genitourinary: Reports: other - + arnold Neurologic: Reports: weakness, other - no change in mental status Psychiatric: Reports: other - NA Skin: Reports: other - wounds - covered ; Denies: rash Hematologic: Denies: bleeding Musculoskeletal: Reports: other - NA Allergies: Coded Allergies: No Known Allergies (Unverified , 10/23/13) Objective Vital Signs Last 24 Hour Vital Signs Date Time Temp Pulse Resp B/P (MAP) Pulse Ox O2 Delivery O2 Flow Rate FiO2 09/28/19 12:00 97.1 75 18 125/59 (81) 98 09/28/19 09:00 Room Air 09/28/19 08:00 98.8 74 18 138/72 (94) 95 09/28/19 04:00 98.1 74 18 120/59 (79) 98 09/28/19 00:00 98.9 86 21 105/47 (66) 95 09/27/19 21:00 Room Air 09/27/19 20:00 99.6 82 21 99/49 (66) 98 09/27/19 19:30 100.3 Height (Feet): 5 Height (Inches): 3.00 Weight (Pounds): 127 General Appearance: no acute distress HEENT: normocephalic, atraumatic, anicteric, mucous membranes moist Respiratory/Chest: accessory muscle use, rhonchi - bilaterally Cardiovascular: normal rate, regular rhythm, no gallop/murmur, no JVD Abdomen: normal bowel sounds, no organomegaly, non distended Genitourinary: other - + arnold Extremities: no cyanosis Skin: no rash Neurologic/Psychiatric: icd 9 coder II-XII grossly normal, 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 Pleural space: Unremarkable. No pneumothorax. Heart: Borderline cardiomegaly, potentially exaggerated by portable technique. Mediastinum: Calcified aorta. Bones/joints: Osteopenia. Degenerative changes. IMPRESSION: Mild vascular congestion CT abdomen: Impression: Anasarca, as described, with generalized edema of subcutaneous abdominal fat, moderate-sized bilateral pleural effusions, pulmonary interstitial and airspace edema Compressive atelectasis of the lower lobes due to the pleural fluid Evidence of rectal fecal impaction and possible stercoral proctitis Pessary, likely malpositioned, as described. There is evidence of bladder floor relaxation despite the pessary Dilated extrahepatic bile ducts. Most likely related to patient's age as no downstream obstructive lesion is demonstrated. However, correlation with liver function tests is recommended, with consideration for MRCP if clinically indicated Questionable slight retrococcygeal decubitus changes. Correlate with findings Other findings as noted, including evidence of prior renal cortical scarring, Arnold catheter, uterine arcuate artery calcifications Chest x-ray - 09/05/19 - Indication: Cough Technique: One view of the chest Comparison: 08/24/2019 Findings: There is increased interstitial edema. There is evidence of left perihilar airspace disease There is suggestion of trace bilateral pleural effusions. The heart size is upper limits normal. Impression: Increased interstitial edema, since prior exam 08/24/2019 Suspect left perihilar consolidation Small bilateral pleural effusions Chest x-ray - 09/07/19 - IMPRESSION: 1. Interval mild improvement in the diffusely increased interstitial markings compared to the prior exam, suggesting improved pulmonary interstitial edema. 2. Linear atelectasis at the periphery of the left mid lung. 3. Possible small left pleural effusion. MRI left foot: IMPRESSION: Evidence of acute osteomyelitis involving the hallux as described above. Cellulitis. Microbiology Date/Time Source Procedure Growth Status 09/03/19 21:00 Blood Blood Culture - Final NO GROWTH AFTER 5 DAYS Complete 09/12/19 14:45 Indwelling Cath Urine Culture - Final Nehal Albicans Complete 09/07/19 13:12 Foot Left Gram Stain - Final Complete 09/07/19 13:12 Wound Culture - Final Usual Skin Maximino Complete Laboratory Tests Test 09/28/19 06:10 09/28/19 15:18 White Blood Count 8.8 K/UL (4.8-10.8) Red Blood Count 3.76 M/UL (4.20-5.40) L Hemoglobin 10.8 G/DL (12.0-16.0) #L Hematocrit 32.6 % (37.0-47.0) #L Mean Corpuscular Volume 87 FL (80-99) Mean Corpuscular Hemoglobin 28.8 PG (27.0-31.0) Mean Corpuscular Hemoglobin Concent 33.3 G/DL (32.0-36.0) Red Cell Distribution Width 15.9 % (11.6-14.8) H Platelet Count 352 K/UL (150-450) Mean Platelet Volume 5.6 FL (6.5-10.1) L Neutrophils (%) (Auto) 68.1 % (45.0-75.0) Lymphocytes (%) (Auto) 20.4 % (20.0-45.0) Monocytes (%) (Auto) 10.0 % (1.0-10.0) Eosinophils (%) (Auto) 0.6 % (0.0-3.0) Basophils (%) (Auto) 0.9 % (0.0-2.0) Sodium Level 142 MMOL/L (136-145) Potassium Level 4.0 MMOL/L (3.5-5.1) Chloride Level 109 MMOL/L (98-107) H Carbon Dioxide Level 22 MMOL/L (21-32) Anion Gap 11 mmol/L (5-15) Blood Urea Nitrogen 8 mg/dL (7-18) Creatinine 0.8 MG/DL (0.55-1.30) Estimat Glomerular Filtration Rate > 60 mL/min (>60) Glucose Level 147 MG/DL (74-106) H Calcium Level 8.2 MG/DL (8.5-10.1) L Phosphorus Level 3.9 MG/DL (2.5-4.9) Magnesium Level 2.1 MG/DL (1.8-2.4) Stool Occult Blood Pending Current Medications Medications (Trade) Dose Ordered Sig/Krystin Route PRN Reason Start Time Stop Time Status Last Admin Dose Admin Acetaminophen (Tylenol) 650 mg Q6H PRN ORAL Mild Pain/Temp > 100.5 09/27/19 18:19 10/27/19 18:18 09/27/19 18:34 Cefepime HCl 2 gm/ Sodium Chloride 110 ml @ 220 mls/hr Q24H IVPB 09/16/19 21:00 10/04/19 23:59 09/27/19 20:15 Collagenase (Santyl) 1 applic DAILY TOPIC 09/12/19 09:00 10/06/19 16:59 09/28/19 10:23 Dextrose 1,000 ml @ 50 mls/hr Q20H IV 09/26/19 00:30 10/26/19 00:29 09/26/19 20:56 Insulin Aspart (NovoLOG) BEFORE MEALS AND HS SUBQ 09/11/19 21:00 09/29/19 20:59 09/28/19 12:07 Metronidazole (Flagyl) 500 mg Q8H ORAL 09/13/19 01:00 10/04/19 23:59 09/28/19 10:23 Oxycodone HCl (Roxicodone) 5 mg Q6H PRN ORAL Breakthrough Pain 09/25/19 12:15 10/02/19 12:14 Oxycodone HCl (Roxicodone) 5 mg Q6H PRN ORAL severe pain 09/25/19 12:15 10/02/19 12:14 Sodium Chloride 1,000 ml @ 30 mls/hr Q24H IV 09/11/19 18:45 10/08/19 16:44 09/26/19 18:17 Tramadol HCl (Ultram) 50 mg Q6H PRN ORAL moderate pain 09/25/19 12:15 10/02/19 12:14 Vancomycin HCl (Vanco rx to dose) 1 ea DAILY PRN MISC Per rx protocol 09/12/19 08:45 10/12/19 08:44 Vancomycin HCl 750 mg/Sodium Chloride 275 ml @ 183.333 mls/hr Q24H IVPB 09/20/19 05:00 10/04/19 23:59 09/28/19 04:57 Gerardo Toledo MD Sep 28, 2019 16:50
--- NOTE | 2019-09-28 17:58 | General Progress Note ---
Assessment/Plan Status: stable Assessment/Plan: 84-year-old lady from [facility] with history of hypertension, uncontrolled diabetes, and Parkinson disease, who was brought to the emergency room by family member for altered mental status and weakness. #Osteomyelitis left foot/ 1st toe #Severe PVD #Severe sepsis #Group B strep, ESBL UTI and bacteremia - vancomycin, cefepime, flagyl - day # 36. will need 6 weeks IV abx treatment for osteomyelitis - ERIBERTO negative for vegetation. surveillance cultures are negative - wound culture right foot with normal maximino but likely polymicrobial infection - monitor labs, recent chest x-ray negative - s/p diflucan (for fungal uti) - ID consult, Dr. Mcfadden, appreciated -General surgery consult appreciated - Podiatry consult appreciated #Anemia, rule out acute blood loss. rule out GI bleed - improved - stool OB pending - appreciate Heme/onc recs - s/p 1 unit PRBC 09/27/19. Consent obtained from family - trend CBC #Hypokalemia #Hypernatremia resolved #Hypophosphatemia Replace as needed Continue to monitor #Uncontrolled DM II - A1c 9-->insulin sliding scale ac/hs, resistant scale, fsbg controlled #Parkinson's disease #Dementia - c/w PD regimen - supportive care - delirium precautions #NSTEMI type II 2/2 renal failure #HFpEF #HTN #Sinus dorian - resolved -d/c heparin gtt/acs protocol per cards, pt w/no chest pain, stable troponin. -Continue ASA -Cont. to hold statin due to rhabdomyolysis. -Decreased Lopressor from 25 mg to 12.5 mg bid due to low heart rate, then d/c on 08/29 for bradycardia, now resolved off Lopressor - s/p lasix 40 mg BID -Echocardiogram Nl EF -continue amlodipine 5 daily - cardiology consult appreciated #OWEN due to ATN - resolved avoid nephrotoxin medications #stage II sacral decubitus ulcer Appreciate wound consult Wound care Buckner in place for healing of wound Pain regimen DVT ppx: HSQ Code status: Full -goals of care have been discussed with family at bedside 09/15/2019 Time spent on patient care, 50 mins, >50% on counseling and coordination of care Time of this note may not reflect the time of the clinical encounter. Subjective ROS Limited/Unobtainable: Yes - h/o dementia, not participating in questions Allergies: Coded Allergies: No Known Allergies (Unverified , 10/23/13) Subjective No acute events overnight per nurse, pt is s/p 2 U PRBCs. Pt w/ h/o dementia, not participating in questions, unable to obtain ROS 2/2 pt participation/ communication. Objective Last 24 Hour Vital Signs Date Time Temp Pulse Resp B/P (MAP) Pulse Ox O2 Delivery O2 Flow Rate FiO2 09/28/19 16:00 98.5 74 18 115/57 (76) 97 09/28/19 12:00 97.1 75 18 125/59 (81) 98 09/28/19 09:00 Room Air 09/28/19 08:00 98.8 74 18 138/72 (94) 95 09/28/19 04:00 98.1 74 18 120/59 (79) 98 09/28/19 00:00 98.9 86 21 105/47 (66) 95 09/27/19 21:00 Room Air 09/27/19 20:00 99.6 82 21 99/49 (66) 98 09/27/19 19:30 100.3 Intake and Output 09/27/19 09/28/19 19:00 07:00 Intake Total 120 ml 1180 ml Output Total 400 ml 600 ml Balance -280 ml 580 ml Intake Oral 120 ml IV Total 830 ml Blood Product 350 ml Output Urine Total 400 ml 600 ml Laboratory Tests 09/28/19 06:10: White Blood Count 8.8, Red Blood Count 3.76L, Hemoglobin 10.8#L, Hematocrit 32.6 #L, Mean Corpuscular Volume 87, Mean Corpuscular Hemoglobin 28.8, Mean Corpuscular Hemoglobin Concent 33.3, Red Cell Distribution Width 15.9H, Platelet Count 352, Mean Platelet Volume 5.6L, Neutrophils (%) (Auto) 68.1, Lymphocytes (%) (Auto) 20.4, Monocytes (%) (Auto) 10.0, Eosinophils (%) (Auto) 0.6, Basophils (%) (Auto) 0.9, Sodium Level 142, Potassium Level 4.0, Chloride Level 109H, Carbon Dioxide Level 22, Anion Gap 11, Blood Urea Nitrogen 8, Creatinine 0.8, Estimat Glomerular Filtration Rate > 60, Glucose Level 147H, Calcium Level 8.2L, Phosphorus Level 3.9, Magnesium Level 2.1 09/28/19 15:18: Stool Occult Blood [Pending] Height (Feet): 5 Height (Inches): 3.00 Weight (Pounds): 127 Objective General: WDWN female in NAD, A&O x 1. Resting in bed HEENT: Normocephalic cephalic atraumatic, pupils equal round reactive to light and accommodation, nares patent and no symmetrical, no tonsillar exudates, mucous membranes moist CV: Regular rate regular rhythm, no murmurs, rubs, or gallops Pulm: Lungs clear to auscultation bilaterally. No wheezes, rhonchi, or rales GI: Soft, nontender, nondistended, bowel sounds present Neuro: CN 2-12 intact bilaterally, no focal signs. Ext: No lower extremity edema bilaterally. Contracted UE, LE b/l (unchanged) : Buckner in place draining yellow urine Skin: Stage II sacral decubitus ulcer. No drainage, bleeding. (Unchanged) Msk: Joints symmetrical in upper extremity and lower extremity bilaterally, no joint swelling. Lymph: No lymphadenopathy in upper extremity and lower extremity Baron Bhakta M.D. Sep 28, 2019 17:58
--- NOTE | 2019-09-28 19:00 | NUR ---
NURSE NOTES: Followed up with Dr. Bhakta about IV fluids. NS has been discontinued and D5W will remain. Charge nurse aware.
--- NOTE | 2019-09-28 19:45 | NUR ---
HAND-OFF: Report given to ISHAAN Kirby.
[2019-09-28 20:00] VITALS: BP 114/59
--- NOTE | 2019-09-28 20:09 | NUR ---
NURSE NOTES: Pt is in bed, awake. No acute distress noted. Wound dressings are dry and intact, pictures of wounds have been taken by last shift. Pt will be turned frequently.Stool sample for stool OB during last shifty. Fall precaution in place. Bed locked low in position,side rails up padded and call light within reach. Pt will be monitored. Aspiration and seizure precaution in place.
[2019-09-28] MEDS: Cefepime HCl 2 GM in NS 110 ML IVPB SCH (21:56)
[2019-09-29 04:00] VITALS: BP 121/62
[2019-09-29] MEDS: Vancomycin 750 MG in NS 275 ML IVPB SCH (05:00)
--- NOTE | 2019-09-29 05:00 | NUR ---
NURSE NOTES: Pt was repositioned frequently, pt was cleaned. Pt had BM, stool sample sent to lab for stool OB. Bed linen changed. Dressing dry and intact. Pt was given pureed snacks and nectar thick liquid with aspiration precaution.
--- NOTE | 2019-09-29 06:15 | NUR ---
HAND-OFF: Report given to ISHAAN Harris.
[2019-09-29] MEDS: NovoLOG Insulin Flexpen SUBQ SCH ×3 (06:30→17:30)
--- NOTE | 2019-09-29 07:20 | NUR ---
NURSE NOTES: Received report from ISHAAN Kirby. Patient in bed, sleeping. On room air, no signs of distress or labored breathing. IV intact, patent, and infusing IV antibiotics. Bed in lowest position with HOB above 30 degrees. Side rails up x3. Will continue with plan of care.
[2019-09-29 08:00] VITALS: BP 108/55
--- NOTE | 2019-09-29 08:37 | Hematology/Onc Progress Note ---
Assessment/Plan Assessment/Plan # Anemia of chronic disease due to underlying chronic medical issues, multifactorial v iron deficiency --> Anemia workup has been ordered, rule out gi bleed seen gi --> No evidence of hemolysis is noted, peripheral smear has been reviewed. --> Hgb goal >7. Transfuse prn. --> Epogen or iron at this time is not particularly indicated --> Medications have been reviewed --> low threshold for gi evaluation in case has occult + --> hgb 7.9-->7.5->6.7 --> OCULT BLOOD--> if + gi debra # Thrombocytosis is likely reactive from multiple wounds, esbl bactremeia --> abx per id --> likely to downtrend shortly # NSTEMI type 2 as per cards, Dr. Purdy --> Nl EF and no vegetations. On aspirin. Off statin for rhabdomyolysis # Hypertension. On Norvasc 5 --> sbp goal <140 # Acute on chronic diastolic CHF. Echo Nl EF. # Urinary tract infection, on IV antibiotic. # 11/08 Strep Bacteremia with WBC 25K. Down to 6 K on Abx --> No endocarditis. ERIBERTO on 09/10/19 no vegetation. # Uncontrolled diabetes # Left toe ulcer. On iv Abx. # Dvt ppx heparin sq Appreciate consultation, brianne RN Subjective Constitutional: Denies: no symptoms, chills, fever, malaise, weakness, other HEENT: Denies: no symptoms, eye pain, blurred vision, tearing, double vision, ear pain, ear discharge, nose pain, nose congestion, throat pain, throat swelling, mouth pain, mouth swelling, other Cardiovascular: Denies: no symptoms, chest pain, edema, irregular heart rate, lightheadedness, palpitations, syncope, other Respiratory: Denies: no symptoms, cough, shortness of breath, SOB with excertion, SOB at rest, sputum, wheezing, other Gastrointestinal/Abdominal: Denies: no symptoms, abdomen distended, abdominal pain, black stools, tarry stools, blood in stool, constipated, diarrhea, difficulty swallowing, nausea, poor appetite, poor fluid intake, rectal bleeding , vomiting, other Genitourinary: Denies: no symptoms, burning, discharge, frequency, flank pain, hematuria, incontinence, pain, urgency, other Neurologic/Psychiatric: Denies: no symptoms, anxiety, depressed, emotional problems, headache, numbness, paresthesia, pre-existing deficit, seizure, tingling, tremors, weakness, other Endocrine: Denies: no symptoms, excessive sweating, flushing, intolerance to cold, intolerance to heat, increased hunger, increased thirst, increased urine, unexplained weight gain, unexplained weight loss, other Hematologic/Lymphatic: Denies: no symptoms, anemia, easy bleeding, easy bruising, adenopathy, other Allergies: Coded Allergies: No Known Allergies (Unverified , 10/23/13) Subjective 09/26: no bleeding,labs reviewed, no night sweats, no hemolysis hgb is 7.5 09/27: hgb lower again, will order occult blood, dw pcp 09/29: labs have been reviewed, no bleeding or chills, hgb >10 Objective Objective Current Medications Medications (Trade) Dose Ordered Sig/Krystin Route PRN Reason Start Time Stop Time Status Last Admin Dose Admin Acetaminophen (Tylenol) 650 mg Q6H PRN ORAL Mild Pain/Temp > 100.5 09/27/19 18:19 10/27/19 18:18 09/27/19 18:34 Cefepime HCl 2 gm/ Sodium Chloride 110 ml @ 220 mls/hr Q24H IVPB 09/16/19 21:00 10/04/19 23:59 09/28/19 21:56 Collagenase (Santyl) 1 applic DAILY TOPIC 09/12/19 09:00 10/06/19 16:59 09/28/19 10:23 Dextrose 1,000 ml @ 50 mls/hr Q20H IV 09/26/19 00:30 10/26/19 00:29 09/28/19 18:23 Insulin Aspart (NovoLOG) BEFORE MEALS AND HS SUBQ 09/11/19 21:00 09/29/19 20:59 09/28/19 21:57 Metronidazole (Flagyl) 500 mg Q8H ORAL 09/13/19 01:00 10/04/19 23:59 09/28/19 23:59 Oxycodone HCl (Roxicodone) 5 mg Q6H PRN ORAL severe pain 09/25/19 12:15 10/02/19 12:14 09/29/19 00:00 Oxycodone HCl (Roxicodone) 5 mg Q6H PRN ORAL Breakthrough Pain 09/25/19 12:15 10/02/19 12:14 Tramadol HCl (Ultram) 50 mg Q6H PRN ORAL moderate pain 09/25/19 12:15 10/02/19 12:14 Vancomycin HCl (Vanco rx to dose) 1 ea DAILY PRN MISC Per rx protocol 09/12/19 08:45 10/12/19 08:44 Vancomycin HCl 750 mg/Sodium Chloride 275 ml @ 183.333 mls/hr Q24H IVPB 09/20/19 05:00 10/04/19 23:59 09/29/19 05:00 Last 24 Hour Vital Signs Date Time Temp Pulse Resp B/P (MAP) Pulse Ox O2 Delivery O2 Flow Rate FiO2 09/29/19 04:00 98.2 74 19 121/62 (81) 97 09/28/19 21:00 Room Air 09/28/19 20:00 98.1 79 19 114/59 (77) 96 09/28/19 16:00 98.5 74 18 115/57 (76) 97 09/28/19 12:00 97.1 75 18 125/59 (81) 98 09/28/19 09:00 Room Air 09/28/19 08:00 98.8 74 18 138/72 (94) 95 09/28/19 04:00 98.1 74 18 120/59 (79) 98 09/28/19 00:00 98.9 86 21 105/47 (66) 95 09/27/19 21:00 Room Air 09/27/19 20:00 99.6 82 21 99/49 (66) 98 09/27/19 19:30 100.3 09/27/19 16:00 98.7 98 18 137/59 (85) 98 09/27/19 12:00 97.6 80 18 123/53 (76) 97 09/27/19 09:59 80 124/55 09/27/19 09:58 80 124/55 (78) 09/27/19 09:00 Room Air Intake and Output 09/28/19 09/29/19 19:00 07:00 Intake Total 290 ml 1215.000 ml Output Total 800 ml 700 ml Balance -510 ml 515.000 ml Intake Oral 240 ml 280 ml IV Total 50 ml 935.000 ml Output Urine Total 800 ml 700 ml # Bowel Movements 1 1 Labs Test 09/26/19 13:10 09/27/19 04:12 09/28/19 06:10 09/28/19 15:18 White Blood Count 8.5 K/UL (4.8-10.8) 7.7 K/UL (4.8-10.8) 8.8 K/UL (4.8-10.8) Red Blood Count 2.76 M/UL (4.20-5.40) 2.47 M/UL (4.20-5.40) 3.76 M/UL (4.20-5.40) Hemoglobin 7.5 G/DL (12.0-16.0) 6.7 G/DL (12.0-16.0) 10.8 G/DL (12.0-16.0) Hematocrit 23.5 % (37.0-47.0) 20.7 % (37.0-47.0) 32.6 % (37.0-47.0) Mean Corpuscular Volume 85 FL (80-99) 84 FL (80-99) 87 FL (80-99) Mean Corpuscular Hemoglobin 27.1 PG (27.0-31.0) 27.1 PG (27.0-31.0) 28.8 PG (27.0-31.0) Mean Corpuscular Hemoglobin Concent 31.9 G/DL (32.0-36.0) 32.3 G/DL (32.0-36.0) 33.3 G/DL (32.0-36.0) Red Cell Distribution Width 17.2 % (11.6-14.8) 17.5 % (11.6-14.8) 15.9 % (11.6-14.8) Platelet Count 423 K/UL (150-450) 362 K/UL (150-450) 352 K/UL (150-450) Mean Platelet Volume 5.5 FL (6.5-10.1) 5.4 FL (6.5-10.1) 5.6 FL (6.5-10.1) Neutrophils (%) (Auto) % (45.0-75.0) % (45.0-75.0) 68.1 % (45.0-75.0) Lymphocytes (%) (Auto) % (20.0-45.0) % (20.0-45.0) 20.4 % (20.0-45.0) Monocytes (%) (Auto) % (1.0-10.0) % (1.0-10.0) 10.0 % (1.0-10.0) Eosinophils (%) (Auto) % (0.0-3.0) % (0.0-3.0) 0.6 % (0.0-3.0) Basophils (%) (Auto) % (0.0-2.0) % (0.0-2.0) 0.9 % (0.0-2.0) Differential Total Cells Counted 100 Neutrophils % (Manual) 86 % (45-75) Lymphocytes % (Manual) 10 % (20-45) Monocytes % (Manual) 4 % (1-10) Eosinophils % (Manual) 0 % (0-3) Basophils % (Manual) 0 % (0-2) Band Neutrophils 0 % (0-8) Platelet Estimate Adequate Platelet Morphology Normal Hypochromasia 3+ Anisocytosis 1+ Sodium Level 144 MMOL/L (136-145) 141 MMOL/L (136-145) 142 MMOL/L (136-145) Potassium Level 3.4 MMOL/L (3.5-5.1) 3.3 MMOL/L (3.5-5.1) 4.0 MMOL/L (3.5-5.1) Chloride Level 110 MMOL/L (98-107) 109 MMOL/L (98-107) 109 MMOL/L (98-107) Carbon Dioxide Level 25 MMOL/L (21-32) 25 MMOL/L (21-32) 22 MMOL/L (21-32) Anion Gap 9 mmol/L (5-15) 7 mmol/L (5-15) 11 mmol/L (5-15) Blood Urea Nitrogen 10 mg/dL (7-18) 8 mg/dL (7-18) 8 mg/dL (7-18) Creatinine 0.9 MG/DL (0.55-1.30) 0.8 MG/DL (0.55-1.30) 0.8 MG/DL (0.55-1.30) Estimat Glomerular Filtration Rate 59.4 mL/min (>60) > 60 mL/min (>60) > 60 mL/min (>60) Glucose Level 176 MG/DL (74-106) 197 MG/DL (74-106) 147 MG/DL (74-106) Calcium Level 8.3 MG/DL (8.5-10.1) 7.9 MG/DL (8.5-10.1) 8.2 MG/DL (8.5-10.1) Phosphorus Level 2.4 MG/DL (2.5-4.9) 1.8 MG/DL (2.5-4.9) 3.9 MG/DL (2.5-4.9) Magnesium Level 1.9 MG/DL (1.8-2.4) 1.6 MG/DL (1.8-2.4) 2.1 MG/DL (1.8-2.4) Iron Level 27 ug/dL (50-175) Total Iron Binding Capacity 98 ug/dL (250-450) Percent Iron Saturation 28 % (15-50) Unsaturated Iron Binding 71 ug/dL (112-346) Ferritin 119 NG/ML (8-388) Vancomycin Level Trough 17.1 ug/mL (5.0-12.0) Height (Feet): 5 Height (Inches): 3.00 Weight (Pounds): 127 Objective gen: confused pulm:: crackles b/l heent: nc, at neck supple cv: rrr, no mgr abd: soft, nt nd ext: wounds on lower ext left toe ulceration covered dressing++ Nehemiah Randhawa MD Sep 29, 2019 08:37
[2019-09-29] MEDS: metroNIDAZOLE 500mg tab ORAL SCH ×2 (08:50→17:29)
[2019-09-29 12:00] VITALS: BP 113/55
[2019-09-29] MEDS ORDERED: Tubing IV Blood Pump IV ONE (13:47)
[2019-09-29] MEDS ORDERED: NS 275ml ONE (13:47)
[2019-09-29] MEDS ORDERED: Tubing IV Secondary IV ONE (13:47)
[2019-09-29 14:25] LABS: BASOPHILS % (AUTO) 0.9 % (0.0-2.0); EOSINOPHILS % (AUTO) 1.2 % (0.0-3.0); HEMATOCRIT 30.1 % (37.0-47.0); HEMOGLOBIN 10.1 G/DL (12.0-16.0); LYMPHOCYTES % (AUTO) 16.6 % (20.0-45.0); MEAN CORPUSCULAR VOLUME 85 FL (80-99); MONOCYTES % (AUTO) 10.2 % (1.0-10.0); NEUTROPHILS % (AUTO) 71.1 % (45.0-75.0); PLATELET COUNT 358 K/UL (150-450); RED BLOOD COUNT 3.53 M/UL (4.20-5.40); RED CELL DISTRIBUTION WIDTH 15.9 % (11.6-14.8); WHITE BLOOD COUNT 9.2 K/UL (4.8-10.8)
[2019-09-29 14:42] LABS: ANION GAP 11 mmol/L (5-15); BLOOD UREA NITROGEN 9 mg/dL (7-18); CALCIUM 8.1 MG/DL (8.5-10.1); CARBON DIOXIDE 22 MMOL/L (21-32); CHLORIDE 104 MMOL/L (98-107); CREATININE 0.8 MG/DL (0.55-1.30); POTASSIUM 3.7 MMOL/L (3.5-5.1); SODIUM 136 MMOL/L (136-145)
--- NOTE | 2019-09-29 15:21 | General Progress Note ---
Assessment/Plan Status: stable Assessment/Plan: 84-year-old lady from [facility] with history of hypertension, uncontrolled diabetes, and Parkinson disease, who was brought to the emergency room by family member for altered mental status and weakness. #Osteomyelitis left foot/ 1st toe #Severe PVD #Severe sepsis #Group B strep, ESBL UTI and bacteremia - vancomycin, cefepime, flagyl - will need 6 weeks IV abx treatment for osteomyelitis - ERIBERTO negative for vegetation. surveillance cultures are negative - wound culture right foot with normal maximino but likely polymicrobial infection - monitor labs, recent chest x-ray negative - s/p diflucan (for fungal uti) - ID consult, Dr. Mcfadden, appreciated -General surgery consult appreciated - Podiatry consult appreciated #Anemia, rule out acute blood loss. rule out GI bleed - improved - stool OB negative - appreciate Heme/onc recs - s/p 1 unit PRBC 09/27/19. Consent obtained from family - trend CBC #Hypokalemia #Hypernatremia resolved #Hypophosphatemia Replace as needed Continue to monitor #Uncontrolled DM II - A1c 9-->insulin sliding scale ac/hs, resistant scale, fsbg controlled #Parkinson's disease #Dementia - c/w PD regimen - supportive care - delirium precautions #NSTEMI type II 2/2 renal failure #HFpEF #HTN #Sinus dorian - resolved -d/c heparin gtt/acs protocol per cards, pt w/no chest pain, stable troponin. -Continue ASA -Cont. to hold statin due to rhabdomyolysis. -Decreased Lopressor from 25 mg to 12.5 mg bid due to low heart rate, then d/c on 08/29 for bradycardia, now resolved off Lopressor - s/p lasix 40 mg BID -Echocardiogram Nl EF -continue amlodipine 5 daily - cardiology consult appreciated #WOEN due to ATN - resolved avoid nephrotoxin medications #stage II sacral decubitus ulcer Appreciate wound consult Wound care Buckner in place for healing of wound Pain regimen DVT ppx: HSQ Code status: Full -goals of care have been discussed with family at bedside 09/15/2019 Time spent on patient care, 45 mins, >50% on counseling and coordination of care Time of this note may not reflect the time of the clinical encounter. Subjective ROS Limited/Unobtainable: Yes - limited interaction, unable to obtain Allergies: Coded Allergies: No Known Allergies (Unverified , 10/23/13) Subjective No acute events overnight per nurse, pt at b/l per nurse. Pt w/ h/o dementia, not participating in questions, unable to obtain ROS 2/2 pt participation/ communication. Objective Last 24 Hour Vital Signs Date Time Temp Pulse Resp B/P (MAP) Pulse Ox O2 Delivery O2 Flow Rate FiO2 09/29/19 12:00 98.1 77 20 113/55 (74) 94 09/29/19 09:00 Room Air 09/29/19 08:00 98.1 74 19 108/55 (72) 97 09/29/19 04:00 98.2 74 19 121/62 (81) 97 09/28/19 21:00 Room Air 09/28/19 20:00 98.1 79 19 114/59 (77) 96 09/28/19 16:00 98.5 74 18 115/57 (76) 97 Intake and Output 09/28/19 09/29/19 19:00 07:00 Intake Total 290 ml 1215.000 ml Output Total 800 ml 700 ml Balance -510 ml 515.000 ml Intake Oral 240 ml 280 ml IV Total 50 ml 935.000 ml Output Urine Total 800 ml 700 ml # Bowel Movements 1 1 Laboratory Tests 09/29/19 05:05: Stool Occult Blood Negative 09/29/19 14:00: White Blood Count 9.2, Red Blood Count 3.53L, Hemoglobin 10.1L, Hematocrit 30.1L , Mean Corpuscular Volume 85, Mean Corpuscular Hemoglobin 28.7, Mean Corpuscular Hemoglobin Concent 33.7, Red Cell Distribution Width 15.9H, Platelet Count 358, Mean Platelet Volume 5.8L, Neutrophils (%) (Auto) 71.1, Lymphocytes (%) (Auto) 16.6L, Monocytes (%) (Auto) 10.2H, Eosinophils (%) (Auto ) 1.2, Basophils (%) (Auto) 0.9, Sodium Level 136, Potassium Level 3.7, Chloride Level 104, Carbon Dioxide Level 22, Anion Gap 11, Blood Urea Nitrogen 9 , Creatinine 0.8, Estimat Glomerular Filtration Rate > 60, Glucose Level 163H, Calcium Level 8.1L Height (Feet): 5 Height (Inches): 3.00 Weight (Pounds): 127 Objective General: NAD, A&O x 1. Resting in bed HEENT: Normocephalic cephalic atraumatic, pupils equal round reactive to light and accommodation, nares patent and no symmetrical, no tonsillar exudates, mucous membranes moist CV: Regular rate regular rhythm, no murmurs, rubs, or gallops Pulm: Lungs clear to auscultation bilaterally. No wheezes, rhonchi, or rales GI: Soft, nontender, nondistended, bowel sounds present Neuro: CN 2-12 intact bilaterally, no focal signs. Ext: No lower extremity edema bilaterally. Contracted UE, LE b/l (unchanged) : Buckner in place draining yellow urine Skin: Stage II sacral decubitus ulcer. No drainage, bleeding. (Unchanged) Msk: Joints symmetrical in upper extremity and lower extremity bilaterally, no joint swelling. Lymph: No lymphadenopathy in upper extremity and lower extremity Baron Bhakta M.D. Sep 29, 2019 15:20
[2019-09-29 16:00] VITALS: BP 121/59
[2019-09-29] MEDS: oxyCODONE 5mg IR tab ORAL PRN ×2 (18:45)
--- NOTE | 2019-09-29 19:30 | NUR ---
HAND-OFF: Report given to ISHAAN Kirby.
--- NOTE | 2019-09-29 19:32 | NUR ---
NURSE NOTES: Pt is in bed, awake. No acute distress noted. Wound dressings are dry and intact. Pt will be turned frequently.Pt will be fed with HOB elevated. Pain medication will be as ordered PRN. Fall precaution in place. Bed locked low in position,side rails up padded and call light within reach. Pt will be monitored. Aspiration and seizure precaution in place.
[2019-09-29 20:00] VITALS: BP 135/63
[2019-09-29] MEDS: Cefepime HCl 2 GM in NS 110 ML IVPB SCH (20:13)
[2019-09-30] VITALS: BP 116/61
[2019-09-30] MEDS: metroNIDAZOLE 500mg tab ORAL SCH ×3 (01:15→16:52)
[2019-09-30 04:00] VITALS: BP 121/62
--- NOTE | 2019-09-30 04:00 | NUR ---
NURSE NOTES: Pt was repositioned frequently. Bed linen changed. Dressing dry and intact. Pt was given pureed snacks and nectar thick liquid with aspiration precaution.
[2019-09-30] MEDS: Vancomycin 750 MG in NS 275 ML IVPB SCH (06:13)
[2019-09-30 06:32] LABS: EOSINOPHILS % (AUTO) 1.2 % (0.0-3.0); HEMATOCRIT 31.5 % (37.0-47.0); HEMOGLOBIN 10.6 G/DL (12.0-16.0); MEAN CORPUSCULAR VOLUME 86 FL (80-99); NEUTROPHILS % (AUTO) 72.8 % (45.0-75.0); PLATELET COUNT 339 K/UL (150-450); RED BLOOD COUNT 3.67 M/UL (4.20-5.40); RED CELL DISTRIBUTION WIDTH 16.3 % (11.6-14.8); WHITE BLOOD COUNT 7.9 K/UL (4.8-10.8)
[2019-09-30 07:04] LABS: ALANINE AMINOTRANSFERASE < 6 U/L (12-78); ALBUMIN 1.5 G/DL (3.4-5.0); ALBUMIN/GLOBULIN RATIO 0.3 (1.0-2.7); ALKALINE PHOSPHATASE 55 U/L (46-116); ANION GAP 6 mmol/L (5-15); ASPARTATE AMINO TRANSFERASE 16 U/L (15-37); BILIRUBIN,TOTAL 0.4 MG/DL (0.2-1.0); BLOOD UREA NITROGEN 9 mg/dL (7-18); CALCIUM 8.2 MG/DL (8.5-10.1); CARBON DIOXIDE 24 MMOL/L (21-32); CHLORIDE 103 MMOL/L (98-107); CREATININE 0.8 MG/DL (0.55-1.30); POTASSIUM 3.7 MMOL/L (3.5-5.1); SODIUM 133 MMOL/L (136-145)
--- NOTE | 2019-09-30 07:10 | NUR ---
HAND-OFF: Report given to ISHAAN Aceves.
[2019-09-30 08:00] VITALS: BP 127/66
--- NOTE | 2019-09-30 09:33 | Hematology/Onc Progress Note ---
Assessment/Plan Assessment/Plan # Anemia of chronic disease due to underlying chronic medical issues, multifactorial v iron deficiency --> Anemia workup has been ordered, rule out gi bleed seen gi --> No evidence of hemolysis is noted, peripheral smear has been reviewed. --> Hgb goal >7. Transfuse prn. --> Epogen or iron at this time is not particularly indicated --> Medications have been reviewed --> low threshold for gi evaluation in case has occult + --> hgb 7.9-->7.5->6.7-->10.8-->10.1 --> OCULT BLOOD--> if + gi debra # Thrombocytosis is likely reactive from multiple wounds, esbl bactremeia --> abx per id --> likely to downtrend shortly # NSTEMI type 2 as per cards, Dr. Purdy --> Nl EF and no vegetations. On aspirin. Off statin for rhabdomyolysis # Hypertension. On Norvasc 5 --> sbp goal <140 # Acute on chronic diastolic CHF. Echo Nl EF. # Urinary tract infection, on IV antibiotic. # 11/08 Strep Bacteremia with WBC 25K. Down to 6 K on Abx --> No endocarditis. ERIBERTO on 09/10/19 no vegetation. # Uncontrolled diabetes # Left toe ulcer. On iv Abx. --> per id # Dvt ppx heparin sq Appreciate consultation, brianne RN Subjective Constitutional: Denies: no symptoms, chills, fever, malaise, weakness, other HEENT: Denies: no symptoms, eye pain, blurred vision, tearing, double vision, ear pain, ear discharge, nose pain, nose congestion, throat pain, throat swelling, mouth pain, mouth swelling, other Cardiovascular: Denies: no symptoms, chest pain, edema, irregular heart rate, lightheadedness, palpitations, syncope, other Respiratory: Denies: no symptoms, cough, shortness of breath, SOB with excertion, SOB at rest, sputum, wheezing, other Gastrointestinal/Abdominal: Denies: no symptoms, abdomen distended, abdominal pain, black stools, tarry stools, blood in stool, constipated, diarrhea, difficulty swallowing, nausea, poor appetite, poor fluid intake, rectal bleeding , vomiting, other Genitourinary: Denies: no symptoms, burning, discharge, frequency, flank pain, hematuria, incontinence, pain, urgency, other Neurologic/Psychiatric: Denies: no symptoms, anxiety, depressed, emotional problems, headache, numbness, paresthesia, pre-existing deficit, seizure, tingling, tremors, weakness, other Endocrine: Denies: no symptoms, excessive sweating, flushing, intolerance to cold, intolerance to heat, increased hunger, increased thirst, increased urine, unexplained weight gain, unexplained weight loss, other Allergies: Coded Allergies: No Known Allergies (Unverified , 10/23/13) Subjective 09/26: no bleeding,labs reviewed, no night sweats, no hemolysis hgb is 7.5 09/27: hgb lower again, will order occult blood, dw pcp 09/29: labs have been reviewed, no bleeding or chills, hgb >10 09/30: no events, no bleeding, no night sweats, hgb better Objective Objective Current Medications Medications (Trade) Dose Ordered Sig/Krystin Route PRN Reason Start Time Stop Time Status Last Admin Dose Admin Acetaminophen (Tylenol) 650 mg Q6H PRN ORAL Mild Pain/Temp > 100.5 09/27/19 18:19 10/27/19 18:18 09/27/19 18:34 Cefepime HCl 2 gm/ Sodium Chloride 110 ml @ 220 mls/hr Q24H IVPB 09/16/19 21:00 10/04/19 23:59 09/29/19 20:13 Collagenase (Santyl) 1 applic DAILY TOPIC 09/12/19 09:00 10/06/19 16:59 09/29/19 08:51 Dextrose 1,000 ml @ 50 mls/hr Q20H IV 09/26/19 00:30 10/26/19 00:29 09/30/19 06:13 Dextrose (Dextrose 50%) 25 ml Q30M PRN IV Hypoglycemia 09/30/19 07:00 10/30/19 06:59 Dextrose (Dextrose 50%) 50 ml Q30M PRN IV Hypoglycemia 09/30/19 07:00 10/30/19 06:59 Insulin Aspart (NovoLOG) BEFORE MEALS AND HS SUBQ 09/30/19 11:30 10/30/19 11:29 Metronidazole (Flagyl) 500 mg Q8H ORAL 09/13/19 01:00 10/04/19 23:59 09/30/19 01:15 Oxycodone HCl (Roxicodone) 5 mg Q6H PRN ORAL severe pain 09/25/19 12:15 10/02/19 12:14 09/29/19 18:45 Oxycodone HCl (Roxicodone) 5 mg Q6H PRN ORAL Breakthrough Pain 09/25/19 12:15 10/02/19 12:14 Tramadol HCl (Ultram) 50 mg Q6H PRN ORAL moderate pain 09/25/19 12:15 10/02/19 12:14 Vancomycin HCl (Vanco rx to dose) 1 ea DAILY PRN MISC Per rx protocol 09/12/19 08:45 10/12/19 08:44 Vancomycin HCl 750 mg/Sodium Chloride 275 ml @ 183.333 mls/hr Q24H IVPB 09/20/19 05:00 10/04/19 23:59 09/30/19 06:13 Last 24 Hour Vital Signs Date Time Temp Pulse Resp B/P (MAP) Pulse Ox O2 Delivery O2 Flow Rate FiO2 09/30/19 04:00 98.0 78 20 121/62 (81) 95 09/30/19 00:00 98.1 77 20 116/61 (79) 95 09/29/19 21:00 Room Air 09/29/19 20:00 97.7 83 20 135/63 (87) 96 09/29/19 16:00 97.2 73 18 121/59 (79) 96 09/29/19 12:00 98.1 77 20 113/55 (74) 94 09/29/19 09:00 Room Air 09/29/19 08:00 98.1 74 19 108/55 (72) 97 09/29/19 04:00 98.2 74 19 121/62 (81) 97 09/28/19 21:00 Room Air 09/28/19 20:00 98.1 79 19 114/59 (77) 96 09/28/19 16:00 98.5 74 18 115/57 (76) 97 09/28/19 12:00 97.1 75 18 125/59 (81) 98 Intake and Output 09/29/19 09/30/19 19:00 07:00 Intake Total 80 ml 710 ml Output Total 500 ml 100 ml Balance -420 ml 610 ml Intake Oral 30 ml IV Total 50 ml 710 ml Output Urine Total 500 ml 100 ml # Bowel Movements 2 Labs Test 09/28/19 06:10 09/28/19 15:18 09/29/19 05:05 09/29/19 14:00 White Blood Count 8.8 K/UL (4.8-10.8) 9.2 K/UL (4.8-10.8) Red Blood Count 3.76 M/UL (4.20-5.40) 3.53 M/UL (4.20-5.40) Hemoglobin 10.8 G/DL (12.0-16.0) 10.1 G/DL (12.0-16.0) Hematocrit 32.6 % (37.0-47.0) 30.1 % (37.0-47.0) Mean Corpuscular Volume 87 FL (80-99) 85 FL (80-99) Mean Corpuscular Hemoglobin 28.8 PG (27.0-31.0) 28.7 PG (27.0-31.0) Mean Corpuscular Hemoglobin Concent 33.3 G/DL (32.0-36.0) 33.7 G/DL (32.0-36.0) Red Cell Distribution Width 15.9 % (11.6-14.8) 15.9 % (11.6-14.8) Platelet Count 352 K/UL (150-450) 358 K/UL (150-450) Mean Platelet Volume 5.6 FL (6.5-10.1) 5.8 FL (6.5-10.1) Neutrophils (%) (Auto) 68.1 % (45.0-75.0) 71.1 % (45.0-75.0) Lymphocytes (%) (Auto) 20.4 % (20.0-45.0) 16.6 % (20.0-45.0) Monocytes (%) (Auto) 10.0 % (1.0-10.0) 10.2 % (1.0-10.0) Eosinophils (%) (Auto) 0.6 % (0.0-3.0) 1.2 % (0.0-3.0) Basophils (%) (Auto) 0.9 % (0.0-2.0) 0.9 % (0.0-2.0) Sodium Level 142 MMOL/L (136-145) 136 MMOL/L (136-145) Potassium Level 4.0 MMOL/L (3.5-5.1) 3.7 MMOL/L (3.5-5.1) Chloride Level 109 MMOL/L (98-107) 104 MMOL/L (98-107) Carbon Dioxide Level 22 MMOL/L (21-32) 22 MMOL/L (21-32) Anion Gap 11 mmol/L (5-15) 11 mmol/L (5-15) Blood Urea Nitrogen 8 mg/dL (7-18) 9 mg/dL (7-18) Creatinine 0.8 MG/DL (0.55-1.30) 0.8 MG/DL (0.55-1.30) Estimat Glomerular Filtration Rate > 60 mL/min (>60) > 60 mL/min (>60) Glucose Level 147 MG/DL (74-106) 163 MG/DL (74-106) Calcium Level 8.2 MG/DL (8.5-10.1) 8.1 MG/DL (8.5-10.1) Phosphorus Level 3.9 MG/DL (2.5-4.9) Magnesium Level 2.1 MG/DL (1.8-2.4) Stool Occult Blood Negative (NEGATIVE) Negative (NEGATIVE) Test 09/29/19 18:50 09/30/19 05:49 White Blood Count 7.9 K/UL (4.8-10.8) Red Blood Count 3.67 M/UL (4.20-5.40) Hemoglobin 10.6 G/DL (12.0-16.0) Hematocrit 31.5 % (37.0-47.0) Mean Corpuscular Volume 86 FL (80-99) Mean Corpuscular Hemoglobin 28.9 PG (27.0-31.0) Mean Corpuscular Hemoglobin Concent 33.7 G/DL (32.0-36.0) Red Cell Distribution Width 16.3 % (11.6-14.8) Platelet Count 339 K/UL (150-450) Mean Platelet Volume 5.9 FL (6.5-10.1) Neutrophils (%) (Auto) 72.8 % (45.0-75.0) Lymphocytes (%) (Auto) 15.0 % (20.0-45.0) Monocytes (%) (Auto) 10.0 % (1.0-10.0) Eosinophils (%) (Auto) 1.2 % (0.0-3.0) Basophils (%) (Auto) 1.0 % (0.0-2.0) Sodium Level 133 MMOL/L (136-145) Potassium Level 3.7 MMOL/L (3.5-5.1) Chloride Level 103 MMOL/L (98-107) Carbon Dioxide Level 24 MMOL/L (21-32) Anion Gap 6 mmol/L (5-15) Blood Urea Nitrogen 9 mg/dL (7-18) Creatinine 0.8 MG/DL (0.55-1.30) Estimat Glomerular Filtration Rate > 60 mL/min (>60) Glucose Level 198 MG/DL (74-106) Calcium Level 8.2 MG/DL (8.5-10.1) Total Bilirubin 0.4 MG/DL (0.2-1.0) Aspartate Amino Transf (AST/SGOT) 16 U/L (15-37) Alanine Aminotransferase (ALT/SGPT) < 6 U/L (12-78) Alkaline Phosphatase 55 U/L (46-116) Total Protein 6.7 G/DL (6.4-8.2) Albumin 1.5 G/DL (3.4-5.0) Globulin 5.2 g/dL Albumin/Globulin Ratio 0.3 (1.0-2.7) Height (Feet): 5 Height (Inches): 3.00 Weight (Pounds): 127 Objective gen: confused pulm:: crackles b/l heent: nc, at neck supple cv: rrr, no mgr abd: soft, nt nd ext: wounds on lower ext left toe ulceration covered dressing++ Nehemiah Randhawa MD Sep 30, 2019 09:33
--- NOTE | 2019-09-30 10:28 | Cardiac Electrophysiology PN ---
Assessment/Plan Assessment/Plan 1. NSTEMI type 2 due to renal failure with creatinine 1.7. Troponins low level and flat. No CP. ECG LBBB Nl EF and no vegetations. On aspirin. Off statin for rhabdomyolysis. Off beta lisbeth for bradycardia 2. Hypertension. On Norvasc 5 daily 3. LBBB and sinus dorian in 30s. Resolved 4. Nonsustained VT. 5. Acute on chronic diastolic CHF. Echo Nl EF. 6. Urinary tract infection, on IV antibiotic. 7. 4/4 Strep Bacteremia with WBC 25K. Down to 8.8 K on Abx No endocarditis. ERIBERTO on 09/10/19 no vegetation. 8. S/P Renal failure. Resolved 9. Uncontrolled diabetes 10. Left toe ulcer. On Abx per ID and podiatry DW RN Subjective Subjective Comfortable in NAD awaiting placement. RN at bedside Objective Last 24 Hour Vital Signs Date Time Temp Pulse Resp B/P (MAP) Pulse Ox O2 Delivery O2 Flow Rate FiO2 09/30/19 08:00 98.0 82 18 127/66 (86) 97 09/30/19 04:00 98.0 78 20 121/62 (81) 95 09/30/19 00:00 98.1 77 20 116/61 (79) 95 09/29/19 21:00 Room Air 09/29/19 20:00 97.7 83 20 135/63 (87) 96 09/29/19 16:00 97.2 73 18 121/59 (79) 96 09/29/19 12:00 98.1 77 20 113/55 (74) 94 Intake and Output 09/29/19 09/30/19 19:00 07:00 Intake Total 80 ml 710 ml Output Total 500 ml 100 ml Balance -420 ml 610 ml Intake Oral 30 ml IV Total 50 ml 710 ml Output Urine Total 500 ml 100 ml # Bowel Movements 2 Laboratory Tests Test 09/29/19 14:00 09/29/19 18:50 09/30/19 05:49 White Blood Count 9.2 K/UL (4.8-10.8) 7.9 K/UL (4.8-10.8) Red Blood Count 3.53 M/UL (4.20-5.40) L 3.67 M/UL (4.20-5.40) L Hemoglobin 10.1 G/DL (12.0-16.0) L 10.6 G/DL (12.0-16.0) L Hematocrit 30.1 % (37.0-47.0) L 31.5 % (37.0-47.0) L Mean Corpuscular Volume 85 FL (80-99) 86 FL (80-99) Mean Corpuscular Hemoglobin 28.7 PG (27.0-31.0) 28.9 PG (27.0-31.0) Mean Corpuscular Hemoglobin Concent 33.7 G/DL (32.0-36.0) 33.7 G/DL (32.0-36.0) Red Cell Distribution Width 15.9 % (11.6-14.8) H 16.3 % (11.6-14.8) H Platelet Count 358 K/UL (150-450) 339 K/UL (150-450) Mean Platelet Volume 5.8 FL (6.5-10.1) L 5.9 FL (6.5-10.1) L Neutrophils (%) (Auto) 71.1 % (45.0-75.0) 72.8 % (45.0-75.0) Lymphocytes (%) (Auto) 16.6 % (20.0-45.0) L 15.0 % (20.0-45.0) L Monocytes (%) (Auto) 10.2 % (1.0-10.0) H 10.0 % (1.0-10.0) Eosinophils (%) (Auto) 1.2 % (0.0-3.0) 1.2 % (0.0-3.0) Basophils (%) (Auto) 0.9 % (0.0-2.0) 1.0 % (0.0-2.0) Sodium Level 136 MMOL/L (136-145) 133 MMOL/L (136-145) L Potassium Level 3.7 MMOL/L (3.5-5.1) 3.7 MMOL/L (3.5-5.1) Chloride Level 104 MMOL/L (98-107) 103 MMOL/L (98-107) Carbon Dioxide Level 22 MMOL/L (21-32) 24 MMOL/L (21-32) Anion Gap 11 mmol/L (5-15) 6 mmol/L (5-15) Blood Urea Nitrogen 9 mg/dL (7-18) 9 mg/dL (7-18) Creatinine 0.8 MG/DL (0.55-1.30) 0.8 MG/DL (0.55-1.30) Estimat Glomerular Filtration Rate > 60 mL/min (>60) > 60 mL/min (>60) Glucose Level 163 MG/DL (74-106) H 198 MG/DL (74-106) H Calcium Level 8.1 MG/DL (8.5-10.1) L 8.2 MG/DL (8.5-10.1) L Stool Occult Blood Pending Total Bilirubin 0.4 MG/DL (0.2-1.0) Aspartate Amino Transf (AST/SGOT) 16 U/L (15-37) Alanine Aminotransferase (ALT/SGPT) < 6 U/L (12-78) L Alkaline Phosphatase 55 U/L (46-116) Total Protein 6.7 G/DL (6.4-8.2) Albumin 1.5 G/DL (3.4-5.0) L Globulin 5.2 g/dL Albumin/Globulin Ratio 0.3 (1.0-2.7) L Objective HEAD AND NECK: No JVD LUNGS: Clear. CARDIOVASCULAR: Regular S1 and S2 with no gallop or murmur. ABDOMEN: Soft. EXTREMITIES: Left toe ulcer covered with dressing Luis Purdy MD Sep 30, 2019 10:28
[2019-09-30 12:00] VITALS: BP 121/59
--- NOTE | 2019-09-30 13:17 | General Progress Note ---
Assessment/Plan Status: stable Assessment/Plan: 84-year-old lady from [facility] with history of hypertension, uncontrolled diabetes, and Parkinson disease, who was brought to the emergency room by family member for altered mental status and weakness. #Osteomyelitis left foot/ 1st toe #Severe PVD #Severe sepsis #Group B strep, ESBL UTI and bacteremia - cont vancomycin, cefepime, flagyl - ERIBERTO negative for vegetation. surveillance cultures are negative - wound culture right foot with normal maximino but likely polymicrobial infection - monitor labs, recent chest x-ray negative - s/p diflucan (for fungal uti) - ID following -General surgery consult appreciated - Podiatry consult appreciated #Anemia, rule out acute blood loss. rule out GI bleed - improved - stool OB negative - appreciate Heme/onc recs - s/p 1 unit PRBC 09/27/19. Consent obtained from family - trend CBC #Hypokalemia #Hypernatremia resolved #Hypophosphatemia Replace as needed Continue to monitor #Uncontrolled DM II - A1c 9-->insulin sliding scale ac/hs, resistant scale, fsbg controlled #Parkinson's disease #Dementia - c/w PD regimen - supportive care - delirium precautions #NSTEMI type II 2/2 renal failure #HFpEF #HTN #Sinus dorian - resolved -d/c heparin gtt/acs protocol per cards, pt w/no chest pain, stable troponin. -Continue ASA -Cont. to hold statin due to rhabdomyolysis. -Decreased Lopressor from 25 mg to 12.5 mg bid due to low heart rate, then d/c on 08/29 for bradycardia, now resolved off Lopressor - s/p lasix 40 mg BID -Echocardiogram Nl EF -continue amlodipine 5 daily - cardiology consult appreciated #OWEN due to ATN - resolved avoid nephrotoxin medications #stage II sacral decubitus ulcer Appreciate wound consult Wound care Buckner in place for healing of wound Pain regimen DVT ppx: HSQ Code status: Full -goals of care have been discussed with family at bedside 09/15/2019 Time spent on patient care, 45 mins, >50% on counseling and coordination of care Time of this note may not reflect the time of the clinical encounter. Subjective Date patient seen: Sep 30, 2019 Time patient seen: 09:12 ROS Limited/Unobtainable: Yes Allergies: Coded Allergies: No Known Allergies (Unverified , 10/23/13) Subjective Follow up for osteomyelitis No acute events overnight. Patient unable to provide any information due to medical conditions Objective Last 24 Hour Vital Signs Date Time Temp Pulse Resp B/P (MAP) Pulse Ox O2 Delivery O2 Flow Rate FiO2 09/30/19 09:00 Room Air 09/30/19 08:00 98.0 82 18 127/66 (86) 97 09/30/19 04:00 98.0 78 20 121/62 (81) 95 09/30/19 00:00 98.1 77 20 116/61 (79) 95 09/29/19 21:00 Room Air 09/29/19 20:00 97.7 83 20 135/63 (87) 96 09/29/19 16:00 97.2 73 18 121/59 (79) 96 Intake and Output 09/29/19 09/30/19 19:00 07:00 Intake Total 80 ml 710 ml Output Total 500 ml 100 ml Balance -420 ml 610 ml Intake Oral 30 ml IV Total 50 ml 710 ml Output Urine Total 500 ml 100 ml # Bowel Movements 2 Laboratory Tests 09/29/19 14:00: White Blood Count 9.2, Red Blood Count 3.53L, Hemoglobin 10.1L, Hematocrit 30.1L , Mean Corpuscular Volume 85, Mean Corpuscular Hemoglobin 28.7, Mean Corpuscular Hemoglobin Concent 33.7, Red Cell Distribution Width 15.9H, Platelet Count 358, Mean Platelet Volume 5.8L, Neutrophils (%) (Auto) 71.1, Lymphocytes (%) (Auto) 16.6L, Monocytes (%) (Auto) 10.2H, Eosinophils (%) (Auto ) 1.2, Basophils (%) (Auto) 0.9, Sodium Level 136, Potassium Level 3.7, Chloride Level 104, Carbon Dioxide Level 22, Anion Gap 11, Blood Urea Nitrogen 9 , Creatinine 0.8, Estimat Glomerular Filtration Rate > 60, Glucose Level 163H, Calcium Level 8.1L 09/29/19 18:50: Stool Occult Blood Negative 09/30/19 05:49: White Blood Count 7.9, Red Blood Count 3.67L, Hemoglobin 10.6L, Hematocrit 31.5L , Mean Corpuscular Volume 86, Mean Corpuscular Hemoglobin 28.9, Mean Corpuscular Hemoglobin Concent 33.7, Red Cell Distribution Width 16.3H, Platelet Count 339, Mean Platelet Volume 5.9L, Neutrophils (%) (Auto) 72.8, Lymphocytes (%) (Auto) 15.0L, Monocytes (%) (Auto) 10.0, Eosinophils (%) (Auto) 1.2, Basophils (%) (Auto) 1.0, Sodium Level 133L, Potassium Level 3.7, Chloride Level 103, Carbon Dioxide Level 24, Anion Gap 6, Blood Urea Nitrogen 9, Creatinine 0.8, Estimat Glomerular Filtration Rate > 60, Glucose Level 198H, Calcium Level 8.2L, Total Bilirubin 0.4, Aspartate Amino Transf (AST/SGOT) 16, Alanine Aminotransferase (ALT/SGPT) < 6L, Alkaline Phosphatase 55, Total Protein 6.7, Albumin 1.5L, Globulin 5.2, Albumin/Globulin Ratio 0.3L Height (Feet): 5 Height (Inches): 3.00 Weight (Pounds): 127 General Appearance: alert, confused Cardiovascular: normal rate, regular rhythm Respiratory/Chest: lungs clear, normal breath sounds Abdomen: soft Arvind Jimenez MD Sep 30, 2019 13:17
--- NOTE | 2019-09-30 13:18 | Surgery Progress Note ---
Surgery Progress Note Subjective Additional Comments no acute events family at bedside comfortable no n/v/f/c labs noted Objective Last 24 Hour Vital Signs Date Time Temp Pulse Resp B/P (MAP) Pulse Ox O2 Delivery O2 Flow Rate FiO2 09/30/19 09:00 Room Air 09/30/19 08:00 98.0 82 18 127/66 (86) 97 09/30/19 04:00 98.0 78 20 121/62 (81) 95 09/30/19 00:00 98.1 77 20 116/61 (79) 95 09/29/19 21:00 Room Air 09/29/19 20:00 97.7 83 20 135/63 (87) 96 09/29/19 16:00 97.2 73 18 121/59 (79) 96 I&O Intake and Output 09/29/19 09/30/19 19:00 07:00 Intake Total 80 ml 710 ml Output Total 500 ml 100 ml Balance -420 ml 610 ml Intake Oral 30 ml IV Total 50 ml 710 ml Output Urine Total 500 ml 100 ml # Bowel Movements 2 Dressing: dry Wound: clean Cardiovascular: RSR Respiratory: clear Abdomen: soft, non-tender, present bowel sounds Extremities: no cyanosis Laboratory Tests Test 09/29/19 14:00 09/29/19 18:50 09/30/19 05:49 White Blood Count 9.2 K/UL (4.8-10.8) 7.9 K/UL (4.8-10.8) Red Blood Count 3.53 M/UL (4.20-5.40) L 3.67 M/UL (4.20-5.40) L Hemoglobin 10.1 G/DL (12.0-16.0) L 10.6 G/DL (12.0-16.0) L Hematocrit 30.1 % (37.0-47.0) L 31.5 % (37.0-47.0) L Mean Corpuscular Volume 85 FL (80-99) 86 FL (80-99) Mean Corpuscular Hemoglobin 28.7 PG (27.0-31.0) 28.9 PG (27.0-31.0) Mean Corpuscular Hemoglobin Concent 33.7 G/DL (32.0-36.0) 33.7 G/DL (32.0-36.0) Red Cell Distribution Width 15.9 % (11.6-14.8) H 16.3 % (11.6-14.8) H Platelet Count 358 K/UL (150-450) 339 K/UL (150-450) Mean Platelet Volume 5.8 FL (6.5-10.1) L 5.9 FL (6.5-10.1) L Neutrophils (%) (Auto) 71.1 % (45.0-75.0) 72.8 % (45.0-75.0) Lymphocytes (%) (Auto) 16.6 % (20.0-45.0) L 15.0 % (20.0-45.0) L Monocytes (%) (Auto) 10.2 % (1.0-10.0) H 10.0 % (1.0-10.0) Eosinophils (%) (Auto) 1.2 % (0.0-3.0) 1.2 % (0.0-3.0) Basophils (%) (Auto) 0.9 % (0.0-2.0) 1.0 % (0.0-2.0) Sodium Level 136 MMOL/L (136-145) 133 MMOL/L (136-145) L Potassium Level 3.7 MMOL/L (3.5-5.1) 3.7 MMOL/L (3.5-5.1) Chloride Level 104 MMOL/L (98-107) 103 MMOL/L (98-107) Carbon Dioxide Level 22 MMOL/L (21-32) 24 MMOL/L (21-32) Anion Gap 11 mmol/L (5-15) 6 mmol/L (5-15) Blood Urea Nitrogen 9 mg/dL (7-18) 9 mg/dL (7-18) Creatinine 0.8 MG/DL (0.55-1.30) 0.8 MG/DL (0.55-1.30) Estimat Glomerular Filtration Rate > 60 mL/min (>60) > 60 mL/min (>60) Glucose Level 163 MG/DL (74-106) H 198 MG/DL (74-106) H Calcium Level 8.1 MG/DL (8.5-10.1) L 8.2 MG/DL (8.5-10.1) L Stool Occult Blood Negative (NEGATIVE) Total Bilirubin 0.4 MG/DL (0.2-1.0) Aspartate Amino Transf (AST/SGOT) 16 U/L (15-37) Alanine Aminotransferase (ALT/SGPT) < 6 U/L (12-78) L Alkaline Phosphatase 55 U/L (46-116) Total Protein 6.7 G/DL (6.4-8.2) Albumin 1.5 G/DL (3.4-5.0) L Globulin 5.2 g/dL Albumin/Globulin Ratio 0.3 (1.0-2.7) L Plan Problems: (1) Decubitus skin ulcer Assessment & Plan: Base of sacral wound is 90% soft necrosis with surrounding moist erythematous margins.Wound is malodorous Periwound is erythematous without induration or elevation in skin temp.(L)8cm x (W)10.5cm. Darker skin tone noted to R and L ischium. Unstageable pressure injury noted L hip Base of wound 90% necrotic cap that is semi-detached at edges,Oozing small amt brown exudate. Remaining 10% of wound is moist and martha . Edges are erythematous and flat.Wound is malodorous. Periwound is erythematous and indurated. No elevation in skin temp. (L)2.5cm x ( W)1.9cm. Two small dark skin pigmentations R Hip that are in close proximity. NO erythema or induration noted. L foot edematous. Dorsal aspect of L foot is dusky. Necrotic ulcer L hallux /L 1st metatarsal (L)3.7cm x (W)5.2cm.Edges are moist and erythematous. Wound is malodorous. Small amt brown exudate noted. Periwound including L st metatarsal is dusky and fluctuant. L heel is fluctuant with non-blanching erythema. Stable dry eschar noted to distal /lateral R foot. Periwound without erythema, induration or fluctuance.(L)0.4cm x (W)0.3cm. Stable dry eschar noted to lateral R 5th metatarsal.(L)0.3cm x (W)0.3cm. NO erythema,induration or fluctuance periwound. R heel is boggy with non-blanching erythema. change Tx orders for Sacrum and L hip to Santyl Moist gauze daily and prn. Primary nurse is aware and orders changed. left foot improving no drainage now Unstageable pressure injury Sacrum. Base of wound has 80% mixed soft necrosis and slough ,20%pink granulation.Macerated borders.(L)9cm x (W)8.5cm. Periwound skin tone is dark without erythema or induration. Resolving pressure injury L trochanter. [place] granulation at base of wound with dry pink epithelial borders. (L)2.2cm x (W)3.3cm. No odor or exudate noted. No evidence of skin breakdown periwound. Unstageable pressure injury L hallux.. Base of wound 100% necrotic with semidetached borders that are erythmatous and moist.(L)4.8cm x (W)5.7cm. Wound is malodorous. Periwound is fluctuant. Dorsal aspect of L foot is less dusky in comparison to last wound assessment. L 2nd metatarsal dusky but improving Both heels are soft but blanchable. Tx.Plan: Cleanse Sacral wound with Saline. Apply Nickel thick Layer Santyl with Saline moistened Gauze. Apply Moisture Barrier Paste periwound. Cover with Optifoam drsg. Daily and prn. Cleanse L hip wound with Saline. Apply Nickel Thick layer of Santyl with Saline Moistened Gauze. Apply Moisture Barrier Paste periwound. Cover with Optifoam drsg.Daily and prn. Cleanse Wound L Hallux with Saline. Apply Nickel thick Layer Santyl with Saline moistened gauze. Cover with ABD Pad and wrap with Kerlix Daily and prn. Apply Cavilon Skin Barrier to Distal/Lateral R foot /R 5th metatarsal Daily. Apply Cavilon SKin Barrier to both heels. Cover each heel with Optifoam drsg. Change every 7 days and prn. Apply Cavilon Skin Barrier to R hip. Cover with Optifoam drsg. Change every 7 days and prn. APM/YURIY Mattress overlay. Reposition at least every 2hours or as tolerated. Off-load heels with pillow. (2) Sepsis Assessment & Plan: Leukocytosis, abnormal labs, tachycardic, per report fevers UA identified urosepsis bacteremic leukocytosis resolved improving overall anemia fevers resolved On antibiotics as per infectious disease Trend labs Okay for diet A.m. labs Wounds unlikely etiology of sepsis as they are chronic and do not look actively infected discussed with medical teams discussed with podiatry - orders placed by no note identified. as per podiatry IV abx 6 weeks over amputation. plan for abx d/c planning cont abx oral for d/c outpatient wound care follow up We will follow with recommendations thank you for let me participate in patient' s care Darrius Miller Sep 30, 2019 13:18
[2019-09-30] MEDS: NovoLOG Insulin Flexpen SUBQ SCH ×3 (14:29→20:47)
--- NOTE | 2019-09-30 15:04 | NUR ---
RD ASSESSMENT & RECOMMENDATIONS SEE CARE ACTIVITY FOR COMPLETE ASSESSMENT DAILY ESTIMATED NEEDS: Needs based on Wounds, DM 49kg 30-35 kcals/kg 8298-2119 total kcals 1.25-2 g protein/kg 61-98 g total protein 25-30ml/kcal mL/kg 7459-6358 total fluid mLs NUTRITION DIAGNOSIS: Increased kcal and pro needs r/t wound healing as evidenced by pt w/ multiple areas of skin breakdown including unstageable L hip wounds x2, refer to WC eval for full assessment, pt w/ prolonged poor intake. CURRENT DIET:CCHO MED, liquify pureed moist w/ NTL PO DIET RECOMMENDATIONS: Liberalized REGULAR / texture per LEAD SOFTWARE DEVELOPER + Glucerna TID w/ meals ENTERAL NUTRITION RECOMMENDATIONS: REC NON ORAL FEEDS IF PART OF POC TO MEET EST NUTRITIONAL NEEDS ADDITIONAL RECOMMENDATIONS: 1) Glucerna TID w/ meals added; Encourage HS snack intake 2) Monitor for hypoglycemica w/ poor PO- now w/ added D5 3) Wound care: if tolerated ANTONIA BID + Vit C 250mg BID + MVI w/ min q daily 4) Calibrated bed scale wts daily 5) Rec appetite stimulant due to prolonged poor PO intake CONSIDER NONORAL FEEDING IF PART OF POC: PROLONGED POOR PO
[2019-09-30 16:00] VITALS: BP 125/63
--- NOTE | 2019-09-30 17:19 | Infectious Diseases Prog Note ---
Assessment/Plan Assessment/Plan ASSESSMENT AND PLAN: 1. streptococcus agalactiae - group b bacteremia, ? endocarditis, esbl e.coli uti, sirs, leukocytosis, ? pna on chest x-ray - ? hcap/aspiration vs pulmonary edema, left foot great toe/1st toe wound infection - MRI c/w osteomyelitis, elevated sed rate f/u urine culture with persistent yeast - vancomycin, cefepime, flagyl - day # 38/42 - CRP improved significantly - 20.6 to 8.3, sed rate still elevated at 125 - f/u oncrp and sed rate - ERIBERTO negative for vegetation, s/p tx for bacteremia - wound culture right foot with normal maximino but likely polymicrobial infection - monitor labs, recent chest x-ray negative - surgery note reviewed - left foot improving - s/p diflucan 2. Acute kidney injury with elevated creatinine. 3. History of diabetes. 4. weakness 5. Blood pressure treatment per primary care team and diabetes treatment per primary care team and consultants. 6. Parkinson's. 7. Dementia. 8. The patient does have also elevated troponin. Cardiology follow-up. 9. MAR was noted. 10. Case was discussed with RN. 11. No known allergies. 12. Social history is negative. 13. Family history is noncontributory. 14. Continue treatment per primary consultants. 15. Orders were noted and entered. Subjective Constitutional: Reports: fatigue; Denies: fever HEENT: Denies: congestion Respiratory: Denies: shortness of breath Cardiovascular: Denies: chest pain Gastrointestinal/Abdominal: Denies: nausea, vomiting, diarrhea Genitourinary: Reports: other - + arnold Neurologic: Denies: headache Psychiatric: Denies: depression Hematologic: Denies: bleeding Musculoskeletal: Denies: pain Allergies: Coded Allergies: No Known Allergies (Unverified , 10/23/13) Objective Vital Signs Last 24 Hour Vital Signs Date Time Temp Pulse Resp B/P (MAP) Pulse Ox O2 Delivery O2 Flow Rate FiO2 09/30/19 16:00 98.7 84 17 125/63 (83) 98 09/30/19 14:07 98.3 09/30/19 12:00 98.3 89 18 121/59 (79) 97 09/30/19 09:00 Room Air 09/30/19 08:00 98.0 82 18 127/66 (86) 97 09/30/19 04:00 98.0 78 20 121/62 (81) 95 09/30/19 00:00 98.1 77 20 116/61 (79) 95 09/29/19 21:00 Room Air 09/29/19 20:00 97.7 83 20 135/63 (87) 96 Height (Feet): 5 Height (Inches): 3.00 Weight (Pounds): 127 General Appearance: no acute distress HEENT: normocephalic, atraumatic, anicteric, mucous membranes moist Respiratory/Chest: lungs clear, normal breath sounds, no respiratory distress, no accessory muscle use Cardiovascular: normal rate, regular rhythm, no gallop/murmur Abdomen: normal bowel sounds, soft, non tender, no organomegaly, non distended Genitourinary: other - no arnold Extremities: other - left foot covered Skin: no rash Neurologic/Psychiatric: services coordinator II-XII grossly normal, 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 Pleural space: Unremarkable. No pneumothorax. Heart: Borderline cardiomegaly, potentially exaggerated by portable technique. Mediastinum: Calcified aorta. Bones/joints: Osteopenia. Degenerative changes. IMPRESSION: Mild vascular congestion CT abdomen: Impression: Anasarca, as described, with generalized edema of subcutaneous abdominal fat, moderate-sized bilateral pleural effusions, pulmonary interstitial and airspace edema Compressive atelectasis of the lower lobes due to the pleural fluid Evidence of rectal fecal impaction and possible stercoral proctitis Pessary, likely malpositioned, as described. There is evidence of bladder floor relaxation despite the pessary Dilated extrahepatic bile ducts. Most likely related to patient's age as no downstream obstructive lesion is demonstrated. However, correlation with liver function tests is recommended, with consideration for MRCP if clinically indicated Questionable slight retrococcygeal decubitus changes. Correlate with findings Other findings as noted, including evidence of prior renal cortical scarring, Arnold catheter, uterine arcuate artery calcifications Chest x-ray - 09/05/19 - Indication: Cough Technique: One view of the chest Comparison: 08/24/2019 Findings: There is increased interstitial edema. There is evidence of left perihilar airspace disease There is suggestion of trace bilateral pleural effusions. The heart size is upper limits normal. Impression: Increased interstitial edema, since prior exam 08/24/2019 Suspect left perihilar consolidation Small bilateral pleural effusions Chest x-ray - 09/07/19 - IMPRESSION: 1. Interval mild improvement in the diffusely increased interstitial markings compared to the prior exam, suggesting improved pulmonary interstitial edema. 2. Linear atelectasis at the periphery of the left mid lung. 3. Possible small left pleural effusion. MRI left foot: IMPRESSION: Evidence of acute osteomyelitis involving the hallux as described above. Cellulitis. Microbiology Date/Time Source Procedure Growth Status 09/03/19 21:00 Blood Blood Culture - Final NO GROWTH AFTER 5 DAYS Complete 09/12/19 14:45 Indwelling Cath Urine Culture - Final Nehal Albicans Complete 09/07/19 13:12 Foot Left Gram Stain - Final Complete 09/07/19 13:12 Wound Culture - Final Usual Skin Maximino Complete Laboratory Tests Test 09/29/19 18:50 09/30/19 05:49 Stool Occult Blood Negative (NEGATIVE) White Blood Count 7.9 K/UL (4.8-10.8) Red Blood Count 3.67 M/UL (4.20-5.40) L Hemoglobin 10.6 G/DL (12.0-16.0) L Hematocrit 31.5 % (37.0-47.0) L Mean Corpuscular Volume 86 FL (80-99) Mean Corpuscular Hemoglobin 28.9 PG (27.0-31.0) Mean Corpuscular Hemoglobin Concent 33.7 G/DL (32.0-36.0) Red Cell Distribution Width 16.3 % (11.6-14.8) H Platelet Count 339 K/UL (150-450) Mean Platelet Volume 5.9 FL (6.5-10.1) L Neutrophils (%) (Auto) 72.8 % (45.0-75.0) Lymphocytes (%) (Auto) 15.0 % (20.0-45.0) L Monocytes (%) (Auto) 10.0 % (1.0-10.0) Eosinophils (%) (Auto) 1.2 % (0.0-3.0) Basophils (%) (Auto) 1.0 % (0.0-2.0) Sodium Level 133 MMOL/L (136-145) L Potassium Level 3.7 MMOL/L (3.5-5.1) Chloride Level 103 MMOL/L (98-107) Carbon Dioxide Level 24 MMOL/L (21-32) Anion Gap 6 mmol/L (5-15) Blood Urea Nitrogen 9 mg/dL (7-18) Creatinine 0.8 MG/DL (0.55-1.30) Estimat Glomerular Filtration Rate > 60 mL/min (>60) Glucose Level 198 MG/DL (74-106) H Calcium Level 8.2 MG/DL (8.5-10.1) L Total Bilirubin 0.4 MG/DL (0.2-1.0) Aspartate Amino Transf (AST/SGOT) 16 U/L (15-37) Alanine Aminotransferase (ALT/SGPT) < 6 U/L (12-78) L Alkaline Phosphatase 55 U/L (46-116) Total Protein 6.7 G/DL (6.4-8.2) Albumin 1.5 G/DL (3.4-5.0) L Globulin 5.2 g/dL Albumin/Globulin Ratio 0.3 (1.0-2.7) L Current Medications Medications (Trade) Dose Ordered Sig/Krystin Route PRN Reason Start Time Stop Time Status Last Admin Dose Admin Acetaminophen (Tylenol) 650 mg Q6H PRN ORAL Mild Pain/Temp > 100.5 09/27/19 18:19 10/27/19 18:18 09/27/19 18:34 Cefepime HCl 2 gm/ Sodium Chloride 110 ml @ 220 mls/hr Q24H IVPB 09/16/19 21:00 10/04/19 23:59 09/29/19 20:13 Collagenase (Santyl) 1 applic DAILY TOPIC 09/12/19 09:00 10/06/19 16:59 09/30/19 09:58 Dextrose 1,000 ml @ 50 mls/hr Q20H IV 09/26/19 00:30 10/26/19 00:29 09/30/19 06:13 Dextrose (Dextrose 50%) 25 ml Q30M PRN IV Hypoglycemia 09/30/19 07:00 10/30/19 06:59 Dextrose (Dextrose 50%) 50 ml Q30M PRN IV Hypoglycemia 09/30/19 07:00 10/30/19 06:59 Insulin Aspart (NovoLOG) BEFORE MEALS AND HS SUBQ 09/30/19 11:30 10/30/19 11:29 09/30/19 14:29 Metronidazole (Flagyl) 500 mg Q8H ORAL 09/13/19 01:00 10/04/19 23:59 09/30/19 16:52 Oxycodone HCl (Roxicodone) 5 mg Q6H PRN ORAL severe pain 09/25/19 12:15 10/02/19 12:14 09/29/19 18:45 Oxycodone HCl (Roxicodone) 5 mg Q6H PRN ORAL Breakthrough Pain 09/25/19 12:15 10/02/19 12:14 Tramadol HCl (Ultram) 50 mg Q6H PRN ORAL moderate pain 09/25/19 12:15 10/02/19 12:14 09/30/19 13:37 Vancomycin HCl (Vanco rx to dose) 1 ea DAILY PRN MISC Per rx protocol 09/12/19 08:45 10/12/19 08:44 Vancomycin HCl 750 mg/Sodium Chloride 275 ml @ 183.333 mls/hr Q24H IVPB 09/20/19 05:00 10/04/19 23:59 09/30/19 06:13 Gerardo Toledo MD Sep 30, 2019 17:19
--- NOTE | 2019-09-30 19:38 | NUR ---
HAND-OFF: Report given to ISHAAN Burden.
--- NOTE | 2019-09-30 19:49 | NUR ---
NURSE NOTES: Received report from ISHAAN Webb. AAO x 1, confused, on room air. IV site intact and running IVF. Fall, aspiration, SZ precaution maintained. HOB elevated. Buck[place] intact and secured to the leg. Wound dressing clean and dry. Will provide wound care. Bed locked, alarm on, side rails padded and up, call light within reach. Will continue to monitor.
[2019-09-30 20:00] VITALS: BP 114/57
[2019-09-30] MEDS: Cefepime HCl 2 GM in NS 110 ML IVPB SCH (20:40)
--- NOTE | 2019-09-30 23:03 | NUR ---
NURSE NOTES: Provided wound care and changed position. Pt is comfortable and sleeping.
[2019-10-01] VITALS: BP 112/54
[2019-10-01] MEDS: metroNIDAZOLE 500mg tab ORAL SCH ×3 (00:21→17:16)
[2019-10-01 04:00] VITALS: BP 112/53
[2019-10-01] MEDS: Vancomycin 750 MG in NS 275 ML IVPB SCH (05:36)
[2019-10-01] MEDS: NovoLOG Insulin Flexpen SUBQ SCH ×4 (05:37→20:49)
--- NOTE | 2019-10-01 07:11 | NUR ---
HAND-OFF: Report given to ISHAAN Augustin.
[2019-10-01 08:00] VITALS: BP 109/55
[2019-10-01 08:29] LABS: ALANINE AMINOTRANSFERASE 6 U/L (12-78); ALBUMIN 1.6 G/DL (3.4-5.0); ALBUMIN/GLOBULIN RATIO 0.4 (1.0-2.7); ALKALINE PHOSPHATASE 54 U/L (46-116); ANION GAP 9 mmol/L (5-15); ASPARTATE AMINO TRANSFERASE 15 U/L (15-37); BILIRUBIN,TOTAL 0.4 MG/DL (0.2-1.0); BLOOD UREA NITROGEN 8 mg/dL (7-18); CALCIUM 7.7 MG/DL (8.5-10.1); CARBON DIOXIDE 24 MMOL/L (21-32); CHLORIDE 102 MMOL/L (98-107); CREATININE 0.8 MG/DL (0.55-1.30); SODIUM 134 MMOL/L (136-145)
--- NOTE | 2019-10-01 09:58 | Surgery Progress Note ---
Surgery Progress Note Subjective Additional Comments no acute events working with pt/ot Objective Last 24 Hour Vital Signs Date Time Temp Pulse Resp B/P (MAP) Pulse Ox O2 Delivery O2 Flow Rate FiO2 10/01/19 08:00 98.1 81 18 109/55 (73) 95 10/01/19 04:00 98.9 92 20 112/53 (72) 93 10/01/19 00:00 98.9 78 15 112/54 (73) 96 09/30/19 21:00 Room Air 09/30/19 20:00 98.4 80 16 114/57 (76) 96 09/30/19 16:00 98.7 84 17 125/63 (83) 98 09/30/19 14:07 98.3 09/30/19 12:00 98.3 89 18 121/59 (79) 97 I&O Intake and Output 09/30/19 10/01/19 18:59 06:59 Intake Total 233.333 ml 710 ml Output Total 1200 ml Balance -966.667 ml 710 ml IV Total 233.333 ml 710 ml Output Urine Total 1200 ml # Voids 1 Dressing: other Wound: other Drains: other Cardiovascular: RSR Respiratory: clear Abdomen: soft, non-tender, present bowel sounds Extremities: no edema, no tenderness, no cyanosis, other Laboratory Tests Test 10/01/19 06:10 Sodium Level 134 MMOL/L (136-145) L Potassium Level 4.0 MMOL/L (3.5-5.1) Chloride Level 102 MMOL/L (98-107) Carbon Dioxide Level 24 MMOL/L (21-32) Anion Gap 9 mmol/L (5-15) Blood Urea Nitrogen 8 mg/dL (7-18) Creatinine 0.8 MG/DL (0.55-1.30) Estimat Glomerular Filtration Rate > 60 mL/min (>60) Glucose Level 143 MG/DL (74-106) H Calcium Level 7.7 MG/DL (8.5-10.1) L Total Bilirubin 0.4 MG/DL (0.2-1.0) Aspartate Amino Transf (AST/SGOT) 15 U/L (15-37) Alanine Aminotransferase (ALT/SGPT) 6 U/L (12-78) L Alkaline Phosphatase 54 U/L (46-116) Total Protein 6.1 G/DL (6.4-8.2) L Albumin 1.6 G/DL (3.4-5.0) L Globulin 4.5 g/dL Albumin/Globulin Ratio 0.4 (1.0-2.7) L Plan Problems: (1) Decubitus skin ulcer Assessment & Plan: Base of sacral wound is 90% soft necrosis with surrounding moist erythematous margins.Wound is malodorous Periwound is erythematous without induration or elevation in skin temp.(L)8cm x (W)10.5cm. Darker skin tone noted to R and L ischium. Unstageable pressure injury noted L hip Base of wound 90% necrotic cap that is semi-detached at edges,Oozing small amt brown exudate. Remaining 10% of wound is moist and martha . Edges are erythematous and flat.Wound is malodorous. Periwound is erythematous and indurated. No elevation in skin temp. (L)2.5cm x ( W)1.9cm. Two small dark skin pigmentations R Hip that are in close proximity. NO erythema or induration noted. L foot edematous. Dorsal aspect of L foot is dusky. Necrotic ulcer L hallux /L 1st metatarsal (L)3.7cm x (W)5.2cm.Edges are moist and erythematous. Wound is malodorous. Small amt brown exudate noted. Periwound including L st metatarsal is dusky and fluctuant. L heel is fluctuant with non-blanching erythema. Stable dry eschar noted to distal /lateral R foot. Periwound without erythema, induration or fluctuance.(L)0.4cm x (W)0.3cm. Stable dry eschar noted to lateral R 5th metatarsal.(L)0.3cm x (W)0.3cm. NO erythema,induration or fluctuance periwound. R heel is boggy with non-blanching erythema. change Tx orders for Sacrum and L hip to Santyl Moist gauze daily and prn. Primary nurse is aware and orders changed. left foot improving no drainage now Unstageable pressure injury Sacrum. Base of wound has 80% mixed soft necrosis and slough ,20%pink granulation.Macerated borders.(L)9cm x (W)8.5cm. Periwound skin tone is dark without erythema or induration. Resolving pressure injury L trochanter. [place] granulation at base of wound with dry pink epithelial borders. (L)2.2cm x (W)3.3cm. No odor or exudate noted. No evidence of skin breakdown periwound. Unstageable pressure injury L hallux.. Base of wound 100% necrotic with semidetached borders that are erythmatous and moist.(L)4.8cm x (W)5.7cm. Wound is malodorous. Periwound is fluctuant. Dorsal aspect of L foot is less dusky in comparison to last wound assessment. L 2nd metatarsal dusky but improving Both heels are soft but blanchable. Tx.Plan: Cleanse Sacral wound with Saline. Apply Nickel thick Layer Santyl with Saline moistened Gauze. Apply Moisture Barrier Paste periwound. Cover with Optifoam drsg. Daily and prn. Cleanse L hip wound with Saline. Apply Nickel Thick layer of Santyl with Saline Moistened Gauze. Apply Moisture Barrier Paste periwound. Cover with Optifoam drsg.Daily and prn. Cleanse Wound L Hallux with Saline. Apply Nickel thick Layer Santyl with Saline moistened gauze. Cover with ABD Pad and wrap with Kerlix Daily and prn. Apply Cavilon Skin Barrier to Distal/Lateral R foot /R 5th metatarsal Daily. Apply Cavilon SKin Barrier to both heels. Cover each heel with Optifoam drsg. Change every 7 days and prn. Apply Cavilon Skin Barrier to R hip. Cover with Optifoam drsg. Change every 7 days and prn. APM/YURIY Mattress overlay. Reposition at least every 2hours or as tolerated. Off-load heels with pillow. (2) Sepsis Assessment & Plan: Leukocytosis, abnormal labs, tachycardic, per report fevers UA identified urosepsis bacteremic leukocytosis resolved improving overall anemia fevers resolved On antibiotics as per infectious disease Trend labs Okay for diet A.m. labs Wounds unlikely etiology of sepsis as they are chronic and do not look actively infected discussed with medical teams discussed with podiatry - orders placed by no note identified. as per podiatry IV abx 6 weeks over amputation. plan for abx d/c planning cont abx oral for d/c outpatient wound care follow up We will follow with recommendations thank you for let me participate in patient' s care Darrius Miller Oct 01, 2019 09:58
[2019-10-01 12:00] VITALS: BP 110/59
--- NOTE | 2019-10-01 12:31 | Cardiac Electrophysiology PN ---
Assessment/Plan Assessment/Plan 1. NSTEMI type 2 due to renal failure with creatinine 1.7. Troponins low level and flat. No CP. ECG LBBB Nl EF and no vegetations. On aspirin. Off statin for rhabdomyolysis. Off beta lisbeth for bradycardia 2. Hypertension. On Norvasc 5 daily 3. LBBB and sinus dorian in 30s. Resolved. Off tele now 4. Nonsustained VT.Nl EF 5. Acute on chronic diastolic CHF. Echo Nl EF. 6. Urinary tract infection, on IV antibiotic. 7. 4/4 Strep Bacteremia with WBC 25K. Down to 8.8 K on Abx No endocarditis. ERIBERTO on 09/10/19 no vegetation. 8. S/P Renal failure. Resolved 9. Uncontrolled diabetes 10. Left toe ulcer. On Abx per ID and podiatry DW RN Subjective Subjective Comfortable in NAD.No events. RN at bedside Objective Last 24 Hour Vital Signs Date Time Temp Pulse Resp B/P (MAP) Pulse Ox O2 Delivery O2 Flow Rate FiO2 10/01/19 09:00 Room Air 10/01/19 08:00 98.1 81 18 109/55 (73) 95 10/01/19 04:00 98.9 92 20 112/53 (72) 93 10/01/19 00:00 98.9 78 15 112/54 (73) 96 09/30/19 21:00 Room Air 09/30/19 20:00 98.4 80 16 114/57 (76) 96 09/30/19 16:00 98.7 84 17 125/63 (83) 98 09/30/19 14:07 98.3 Intake and Output 09/30/19 10/01/19 19:00 07:00 Intake Total 233.333 ml 660 ml Output Total 1200 ml Balance -966.667 ml 660 ml IV Total 233.333 ml 660 ml Output Urine Total 1200 ml # Voids 1 Laboratory Tests Test 10/01/19 06:10 Sodium Level 134 MMOL/L (136-145) L Potassium Level 4.0 MMOL/L (3.5-5.1) Chloride Level 102 MMOL/L (98-107) Carbon Dioxide Level 24 MMOL/L (21-32) Anion Gap 9 mmol/L (5-15) Blood Urea Nitrogen 8 mg/dL (7-18) Creatinine 0.8 MG/DL (0.55-1.30) Estimat Glomerular Filtration Rate > 60 mL/min (>60) Glucose Level 143 MG/DL (74-106) H Calcium Level 7.7 MG/DL (8.5-10.1) L Total Bilirubin 0.4 MG/DL (0.2-1.0) Aspartate Amino Transf (AST/SGOT) 15 U/L (15-37) Alanine Aminotransferase (ALT/SGPT) 6 U/L (12-78) L Alkaline Phosphatase 54 U/L (46-116) Total Protein 6.1 G/DL (6.4-8.2) L Albumin 1.6 G/DL (3.4-5.0) L Globulin 4.5 g/dL Albumin/Globulin Ratio 0.4 (1.0-2.7) L Objective HEAD AND NECK: No JVD LUNGS: Clear. CARDIOVASCULAR: Regular S1 and S2 with no gallop or murmur. ABDOMEN: Soft. EXTREMITIES: Left toe ulcer covered with dressing Luis Purdy MD Oct 01, 2019 12:31
--- NOTE | 2019-10-01 14:27 | General Progress Note ---
Assessment/Plan Status: stable Assessment/Plan: 84-year-old lady from [facility] with history of hypertension, uncontrolled diabetes, and Parkinson disease, who was brought to the emergency room by family member for altered mental status and weakness. #Osteomyelitis left foot/ 1st toe #Severe PVD #Severe sepsis #Group B strep, ESBL UTI and bacteremia - cont vancomycin, cefepime, flagyl day # 39/42 - ERIBERTO negative for vegetation. surveillance cultures are negative - wound culture right foot with normal maximino but likely polymicrobial infection - monitor labs, recent chest x-ray negative - s/p diflucan (for fungal uti) - ID following -General surgery consult appreciated - Podiatry consult appreciated #Anemia, rule out acute blood loss. rule out GI bleed - improved - stool OB negative - appreciate Heme/onc recs - s/p 1 unit PRBC 09/27/19. Consent obtained from family - trend CBC #Hypokalemia #Hypernatremia resolved #Hypophosphatemia Replace as needed Continue to monitor #Uncontrolled DM II - A1c 9-->insulin sliding scale ac/hs, resistant scale, fsbg controlled #Parkinson's disease #Dementia - c/w PD regimen - supportive care - delirium precautions #NSTEMI type II 2/2 renal failure #HFpEF #HTN #Sinus dorian - resolved -d/c heparin gtt/acs protocol per cards, pt w/no chest pain, stable troponin. -Continue ASA -Cont. to hold statin due to rhabdomyolysis. -Decreased Lopressor from 25 mg to 12.5 mg bid due to low heart rate, then d/c on 08/29 for bradycardia, now resolved off Lopressor - s/p lasix 40 mg BID -Echocardiogram Nl EF -continue amlodipine 5 daily - cardiology consult appreciated #OWEN due to ATN - resolved avoid nephrotoxin medications #stage II sacral decubitus ulcer Appreciate wound consult Wound care Buckner in place for healing of wound Pain regimen DVT ppx: HSQ Code status: Full -goals of care have been discussed with family at bedside 09/15/2019 Time spent on patient care, 45 mins, >50% on counseling and coordination of care Time of this note may not reflect the time of the clinical encounter. Subjective Date patient seen: Oct 01, 2019 Time patient seen: 10:00 ROS Limited/Unobtainable: Yes Allergies: Coded Allergies: No Known Allergies (Unverified , 3/19/14) Subjective Follow up for osteomyelitis, day #39/ Patient unable to provide any information due to medical conditions Objective Last 24 Hour Vital Signs Date Time Temp Pulse Resp B/P (MAP) Pulse Ox O2 Delivery O2 Flow Rate FiO2 10/01/19 12:00 97.5 83 18 110/59 (76) 97 10/01/19 09:00 Room Air 10/01/19 08:00 98.1 81 18 109/55 (73) 95 10/01/19 04:00 98.9 92 20 112/53 (72) 93 10/01/19 00:00 98.9 78 15 112/54 (73) 96 09/30/19 21:00 Room Air 09/30/19 20:00 98.4 80 16 114/57 (76) 96 09/30/19 16:00 98.7 84 17 125/63 (83) 98 Intake and Output 09/30/19 10/01/19 19:00 07:00 Intake Total 233.333 ml 660 ml Output Total 1200 ml Balance -966.667 ml 660 ml IV Total 233.333 ml 660 ml Output Urine Total 1200 ml # Voids 1 Laboratory Tests 10/01/19 06:10: Sodium Level 134L, Potassium Level 4.0, Chloride Level 102, Carbon Dioxide Level 24, Anion Gap 9, Blood Urea Nitrogen 8, Creatinine 0.8, Estimat Glomerular Filtration Rate > 60, Glucose Level 143H, Calcium Level 7.7L, Total Bilirubin 0.4, Aspartate Amino Transf (AST/SGOT) 15, Alanine Aminotransferase ( ALT/SGPT) 6L, Alkaline Phosphatase 54, Total Protein 6.1L, Albumin 1.6L, Globulin 4.5, Albumin/Globulin Ratio 0.4L Height (Feet): 5 Height (Inches): 3.00 Weight (Pounds): 127 General Appearance: alert Neck: normal alignment Cardiovascular: normal rate, regular rhythm Respiratory/Chest: lungs clear, normal breath sounds Abdomen: non tender, soft Arvind Jimenez MD Oct 01, 2019 14:27
[2019-10-01 16:00] VITALS: BP 115/61
--- NOTE | 2019-10-01 16:21 | NUR ---
CASE MANAGEMENT:REVIEW 09/27/2019 SI; LEFT FOOT OSTEOMYELITIS. 100.3 98 21 99/49 95% ON RA H/H 6.7/20.7 K+ 3.3 CL 109 CA 7.9 PHOS 1.8 MG 1.6 IS; D5 IV @ 50 ML/HR VANCOMYCIN IV Q24 HRS CEFEPIME IV Q24 HRS FALGYL PO Q8 HRS SANTYL TOP QD OXYCODONE PO Q6 HRS PRN MED SURG STATUS PLAN; IV ABX X6 WEEKS (DAY #34) DCP; FROM HOME CASE MANAGEMENT:REVIEW 09/28/2019 SI; LEFT FOOT OSTEOMYELITIS. 98.8 79 19 125/59 CA 8.2 IS; D5 IV @ 50 ML/HR VANCOMYCIN IV Q24 HRS CEFEPIME IV Q24 HRS FALGYL PO Q8 HRS SANTYL TOP QD OXYCODONE PO Q6 HRS PRN MED SURG STATUS PLAN; IV ABX X6 WEEKS (DAY #35) DCP; FROM HOME CASE MANAGEMENT:REVIEW 09/29/2019 SI; LEFT FOOT OSTEOMYELITIS. 98.1 77 20 108/55 94% ON RA CA 8.1 IS; D5 IV @ 50 ML/HR VANCOMYCIN IV Q24 HRS CEFEPIME IV Q24 HRS FALGYL PO Q8 HRS SANTYL TOP QD OXYCODONE PO Q6 HRS PRN MED SURG STATUS PLAN; IV ABX X6 WEEKS (DAY #36) DCP; FROM HOME CASE MANAGEMENT:REVIEW 09/30/2019 SI; LEFT FOOT OSTEOMYELITIS. 98.7 89 18 125/63 96% ON RA NA+ 133 CA 8.2 IS; D5 IV @ 50 ML/HR VANCOMYCIN IV Q24 HRS CEFEPIME IV Q24 HRS FALGYL PO Q8 HRS SANTYL TOP QD OXYCODONE PO Q6 HRS PRN MED SURG STATUS PLAN; IV ABX X6 WEEKS (DAY #37) DCP; FROM HOME CASE MANAGEMENT:REVIEW 10/01/2019 SI; LEFT FOOT OSTEOMYELITIS. 98.9 92 15 109/55 93% ON RA NA+ 164 CA 7.7 IS; D5 IV @ 50 ML/HR VANCOMYCIN IV Q24 HRS CEFEPIME IV Q24 HRS FALGYL PO Q8 HRS SANTYL TOP QD OXYCODONE PO Q6 HRS PRN MED SURG STATUS PLAN; IV ABX X6 WEEKS (DAY #38) DCP; FROM HOME
--- NOTE | 2019-10-01 16:48 | Hematology/Onc Progress Note ---
Assessment/Plan Assessment/Plan # Anemia of chronic disease due to underlying chronic medical issues, multifactorial v iron deficiency --> Anemia workup has been ordered, rule out gi bleed seen gi --> No evidence of hemolysis is noted, peripheral smear has been reviewed. --> Hgb goal >7. Transfuse prn. --> Epogen or iron at this time is not particularly indicated --> Medications have been reviewed --> low threshold for gi evaluation in case has occult + --> hgb 7.9-->7.5->6.7-->10.8-->10.1 --> OCULT BLOOD--> if + gi debra; negative x3 # Thrombocytosis is likely reactive from multiple wounds, esbl bactremeia --> abx per id --> likely to downtrend shortly # NSTEMI type 2 as per cards, Dr. Purdy --> Nl EF and no vegetations. On aspirin. Off statin for rhabdomyolysis # Hypertension. On Norvasc 5 --> sbp goal <140 # Acute on chronic diastolic CHF. Echo Nl EF. # Urinary tract infection, on IV antibiotic. # 4/ Strep Bacteremia with WBC 25K. Down to 6 K on Abx --> No endocarditis. ERIBERTO on 09/10/19 no vegetation. # Uncontrolled diabetes # Left toe ulcer. On iv Abx. --> per id # Dvt ppx heparin sq Appreciate consultation, brianne RN Subjective Allergies: Coded Allergies: No Known Allergies (Unverified , 10/23/13) Subjective 09/26: no bleeding,labs reviewed, no night sweats, no hemolysis hgb is 7.5 09/27: hgb lower again, will order occult blood, brianne pcp 09/29: labs have been reviewed, no bleeding or chills, hgb >10 09/30: no events, no bleeding, no night sweats, hgb better 10/01: confused, on abx, no acute events, PT for today Objective Objective Current Medications Medications (Trade) Dose Ordered Sig/Krystin Route PRN Reason Start Time Stop Time Status Last Admin Dose Admin Acetaminophen (Tylenol) 650 mg Q6H PRN ORAL Mild Pain/Temp > 100.5 09/27/19 18:19 10/27/19 18:18 09/27/19 18:34 Cefepime HCl 2 gm/ Sodium Chloride 110 ml @ 220 mls/hr Q24H IVPB 09/16/19 21:00 10/04/19 23:59 09/30/19 20:40 Collagenase (Santyl) 1 applic DAILY TOPIC 09/12/19 09:00 10/06/19 16:59 10/01/19 08:55 Dextrose 1,000 ml @ 50 mls/hr Q20H IV 09/26/19 00:30 10/26/19 00:29 10/01/19 00:21 Dextrose (Dextrose 50%) 25 ml Q30M PRN IV Hypoglycemia 09/30/19 07:00 10/30/19 06:59 Dextrose (Dextrose 50%) 50 ml Q30M PRN IV Hypoglycemia 09/30/19 07:00 10/30/19 06:59 Insulin Aspart (NovoLOG) BEFORE MEALS AND HS SUBQ 09/30/19 11:30 10/30/19 11:29 10/01/19 05:37 Metronidazole (Flagyl) 500 mg Q8H ORAL 09/13/19 01:00 10/04/19 23:59 10/01/19 08:53 Oxycodone HCl (Roxicodone) 5 mg Q6H PRN ORAL severe pain 09/25/19 12:15 10/02/19 12:14 09/29/19 18:45 Oxycodone HCl (Roxicodone) 5 mg Q6H PRN ORAL Breakthrough Pain 09/25/19 12:15 10/02/19 12:14 Tramadol HCl (Ultram) 50 mg Q6H PRN ORAL moderate pain 09/25/19 12:15 10/02/19 12:14 09/30/19 13:37 Vancomycin HCl (Vanco rx to dose) 1 ea DAILY PRN MISC Per rx protocol 09/12/19 08:45 10/12/19 08:44 Vancomycin HCl 750 mg/Sodium Chloride 275 ml @ 183.333 mls/hr Q24H IVPB 09/20/19 05:00 10/04/19 23:59 10/01/19 05:36 Last 24 Hour Vital Signs Date Time Temp Pulse Resp B/P (MAP) Pulse Ox O2 Delivery O2 Flow Rate FiO2 10/01/19 16:00 97.1 83 18 115/61 (79) 95 10/01/19 12:00 97.5 83 18 110/59 (76) 97 10/01/19 09:00 Room Air 10/01/19 08:00 98.1 81 18 109/55 (73) 95 10/01/19 04:00 98.9 92 20 112/53 (72) 93 10/01/19 00:00 98.9 78 15 112/54 (73) 96 09/30/19 21:00 Room Air 09/30/19 20:00 98.4 80 16 114/57 (76) 96 09/30/19 16:00 98.7 84 17 125/63 (83) 98 09/30/19 14:07 98.3 09/30/19 12:00 98.3 89 18 121/59 (79) 97 09/30/19 09:00 Room Air 09/30/19 08:00 98.0 82 18 127/66 (86) 97 09/30/19 04:00 98.0 78 20 121/62 (81) 95 09/30/19 00:00 98.1 77 20 116/61 (79) 95 09/29/19 21:00 Room Air 09/29/19 20:00 97.7 83 20 135/63 (87) 96 Intake and Output 09/30/19 10/01/19 19:00 07:00 Intake Total 233.333 ml 660 ml Output Total 1200 ml Balance -966.667 ml 660 ml IV Total 233.333 ml 660 ml Output Urine Total 1200 ml # Voids 1 Labs Test 09/29/19 05:05 09/29/19 14:00 09/29/19 18:50 09/30/19 05:49 Stool Occult Blood Negative (NEGATIVE) Negative (NEGATIVE) White Blood Count 9.2 K/UL (4.8-10.8) 7.9 K/UL (4.8-10.8) Red Blood Count 3.53 M/UL (4.20-5.40) 3.67 M/UL (4.20-5.40) Hemoglobin 10.1 G/DL (12.0-16.0) 10.6 G/DL (12.0-16.0) Hematocrit 30.1 % (37.0-47.0) 31.5 % (37.0-47.0) Mean Corpuscular Volume 85 FL (80-99) 86 FL (80-99) Mean Corpuscular Hemoglobin 28.7 PG (27.0-31.0) 28.9 PG (27.0-31.0) Mean Corpuscular Hemoglobin Concent 33.7 G/DL (32.0-36.0) 33.7 G/DL (32.0-36.0) Red Cell Distribution Width 15.9 % (11.6-14.8) 16.3 % (11.6-14.8) Platelet Count 358 K/UL (150-450) 339 K/UL (150-450) Mean Platelet Volume 5.8 FL (6.5-10.1) 5.9 FL (6.5-10.1) Neutrophils (%) (Auto) 71.1 % (45.0-75.0) 72.8 % (45.0-75.0) Lymphocytes (%) (Auto) 16.6 % (20.0-45.0) 15.0 % (20.0-45.0) Monocytes (%) (Auto) 10.2 % (1.0-10.0) 10.0 % (1.0-10.0) Eosinophils (%) (Auto) 1.2 % (0.0-3.0) 1.2 % (0.0-3.0) Basophils (%) (Auto) 0.9 % (0.0-2.0) 1.0 % (0.0-2.0) Sodium Level 136 MMOL/L (136-145) 133 MMOL/L (136-145) Potassium Level 3.7 MMOL/L (3.5-5.1) 3.7 MMOL/L (3.5-5.1) Chloride Level 104 MMOL/L (98-107) 103 MMOL/L (98-107) Carbon Dioxide Level 22 MMOL/L (21-32) 24 MMOL/L (21-32) Anion Gap 11 mmol/L (5-15) 6 mmol/L (5-15) Blood Urea Nitrogen 9 mg/dL (7-18) 9 mg/dL (7-18) Creatinine 0.8 MG/DL (0.55-1.30) 0.8 MG/DL (0.55-1.30) Estimat Glomerular Filtration Rate > 60 mL/min (>60) > 60 mL/min (>60) Glucose Level 163 MG/DL (74-106) 198 MG/DL (74-106) Calcium Level 8.1 MG/DL (8.5-10.1) 8.2 MG/DL (8.5-10.1) Total Bilirubin 0.4 MG/DL (0.2-1.0) Aspartate Amino Transf (AST/SGOT) 16 U/L (15-37) Alanine Aminotransferase (ALT/SGPT) < 6 U/L (12-78) Alkaline Phosphatase 55 U/L (46-116) Total Protein 6.7 G/DL (6.4-8.2) Albumin 1.5 G/DL (3.4-5.0) Globulin 5.2 g/dL Albumin/Globulin Ratio 0.3 (1.0-2.7) Test 10/01/19 06:10 Sodium Level 134 MMOL/L (136-145) Potassium Level 4.0 MMOL/L (3.5-5.1) Chloride Level 102 MMOL/L (98-107) Carbon Dioxide Level 24 MMOL/L (21-32) Anion Gap 9 mmol/L (5-15) Blood Urea Nitrogen 8 mg/dL (7-18) Creatinine 0.8 MG/DL (0.55-1.30) Estimat Glomerular Filtration Rate > 60 mL/min (>60) Glucose Level 143 MG/DL (74-106) Calcium Level 7.7 MG/DL (8.5-10.1) Total Bilirubin 0.4 MG/DL (0.2-1.0) Aspartate Amino Transf (AST/SGOT) 15 U/L (15-37) Alanine Aminotransferase (ALT/SGPT) 6 U/L (12-78) Alkaline Phosphatase 54 U/L (46-116) Total Protein 6.1 G/DL (6.4-8.2) Albumin 1.6 G/DL (3.4-5.0) Globulin 4.5 g/dL Albumin/Globulin Ratio 0.4 (1.0-2.7) Height (Feet): 5 Height (Inches): 3.00 Weight (Pounds): 127 Objective gen: confused pulm:: crackles b/l heent: nc, at neck supple cv: rrr, no mgr abd: soft, nt nd ext: wounds on lower ext left toe ulceration covered dressing++ Nehemiah Randhawa MD Oct 01, 2019 16:48
--- NOTE | 2019-10-01 17:20 | NUR ---
NURSE NOTES: Patient refused to eat and has been having poor po intake for past few days. RN spoke to Dr. Hou on the phone and mentioned about poor po intake. Dr. Hou is aware with no new order @ this time. He will check the patient tomorrow.
--- NOTE | 2019-10-01 19:00 | NUR ---
NURSE NOTES: Re-position and proper skin care done during shift, no new skin issue.Patient was stable.
--- NOTE | 2019-10-01 19:40 | NUR ---
HAND-OFF: Report given to Laura and endorsed plan of care.
--- NOTE | 2019-10-01 19:45 | NUR ---
NURSE NOTES: Received patient in bed, asleep, patient is total care, confused, non verbal, disoriented. IV site is clean dry and intact. Call light is within reach, bed is lowered, locked, alarm is on, will continue to monitor for comfort and safety.
[2019-10-01 20:00] VITALS: BP 110/52
[2019-10-01] MEDS: Cefepime HCl 2 GM in NS 110 ML IVPB SCH (20:32)
[2019-10-02] VITALS (7 sets, daily range): BP systolic 111–119; BP diastolic 53–62
[2019-10-02] MEDS: metroNIDAZOLE 500mg tab ORAL SCH ×3 (01:34→17:02)
[2019-10-02] MEDS: Vancomycin 750 MG in NS 275 ML IVPB SCH (05:15)
[2019-10-02] MEDS: NovoLOG Insulin Flexpen SUBQ SCH ×4 (05:47→20:59)
--- NOTE | 2019-10-02 07:13 | NUR ---
HAND-OFF: Report given to Dami QUIROS.
[2019-10-02 07:21] LABS: BASOPHILS % (AUTO) 0.7 % (0.0-2.0); EOSINOPHILS % (AUTO) 1.2 % (0.0-3.0); HEMATOCRIT 30.5 % (37.0-47.0); HEMOGLOBIN 10.2 G/DL (12.0-16.0); LYMPHOCYTES % (AUTO) 18.3 % (20.0-45.0); MEAN CORPUSCULAR VOLUME 86 FL (80-99); MONOCYTES % (AUTO) 11.1 % (1.0-10.0); NEUTROPHILS % (AUTO) 68.7 % (45.0-75.0); PLATELET COUNT 311 K/UL (150-450); RED BLOOD COUNT 3.55 M/UL (4.20-5.40); RED CELL DISTRIBUTION WIDTH 16.8 % (11.6-14.8); WHITE BLOOD COUNT 8.1 K/UL (4.8-10.8)
--- NOTE | 2019-10-02 09:00 | NUR ---
NURSE NOTES: PT WITH LIMITED APPETITE. TAKES ONLY FEW BITES AND DOES NOT WANT TO EAT FURTHER. NO S/S PAIN NOTED USING FLACC PAIN SCALE. BED IN LOWEST POSITION WITH BEDSIDE RAILS X3 RAISED. PT IS ON P200 MATTRESS. BED ALARM ON ZONE 1. PT IN HIGH-ROBLES'S POSITION WITH HOB ELEVATED. IN NO APPARENT DISTRESS AT THIS TIME. DR GAY WITH ORDERS FOR 24 HOUR CALORIE COUNT. WILL CONTINUE TO MONITOR.
--- NOTE | 2019-10-02 09:06 | Cardiac Electrophysiology PN ---
Assessment/Plan Assessment/Plan 1. NSTEMI type 2 due to renal failure with creatinine 1.7. Troponins low level and flat. No CP. ECG LBBB Nl EF and no vegetations. On aspirin. Off statin for rhabdomyolysis. Off beta lisbeth for bradycardia 2. Hypertension. On Norvasc 5 daily 3. LBBB and sinus dorian in 30s. Resolved. Off tele now 4. Nonsustained VT.Nl EF 5. Acute on chronic diastolic CHF. Echo Nl EF. 6. Urinary tract infection, on IV antibiotic. 7. 4/4 Strep Bacteremia with WBC 25K. Down to 8.8 K on Abx No endocarditis. ERIBERTO on 09/10/19 no vegetation. 8. S/P Renal failure. Resolved 9. Uncontrolled diabetes 10. Left toe ulcer. On Abx per ID and podiatry 11. Malnutrition. Calorie count in progress. May need PEG DW RN Subjective Subjective Comfortable in NAD.No events.Passed swallow eval but not eating much. Is on Calorie count now. RN at bedside Objective Last 24 Hour Vital Signs Date Time Temp Pulse Resp B/P (MAP) Pulse Ox O2 Delivery O2 Flow Rate FiO2 10/02/19 04:00 98.6 82 18 111/53 (72) 97 10/02/19 00:00 98.4 77 20 111/54 (73) 95 10/01/19 21:13 Room Air 10/01/19 20:00 99.1 82 20 110/52 (71) 95 10/01/19 16:00 97.1 83 18 115/61 (79) 95 10/01/19 12:00 97.5 83 18 110/59 (76) 97 Intake and Output 10/01/19 10/02/19 19:00 07:00 Intake Total 800 ml 50 ml Output Total 1150 ml 1100 ml Balance -350 ml -1050 ml IV Total 600 ml 50 ml Other 200 ml Output Urine Total 1150 ml 1100 ml Laboratory Tests Test 10/02/19 05:24 White Blood Count 8.1 K/UL (4.8-10.8) Red Blood Count 3.55 M/UL (4.20-5.40) L Hemoglobin 10.2 G/DL (12.0-16.0) L Hematocrit 30.5 % (37.0-47.0) L Mean Corpuscular Volume 86 FL (80-99) Mean Corpuscular Hemoglobin 28.7 PG (27.0-31.0) Mean Corpuscular Hemoglobin Concent 33.3 G/DL (32.0-36.0) Red Cell Distribution Width 16.8 % (11.6-14.8) H Platelet Count 311 K/UL (150-450) Mean Platelet Volume 5.8 FL (6.5-10.1) L Neutrophils (%) (Auto) 68.7 % (45.0-75.0) Lymphocytes (%) (Auto) 18.3 % (20.0-45.0) L Monocytes (%) (Auto) 11.1 % (1.0-10.0) H Eosinophils (%) (Auto) 1.2 % (0.0-3.0) Basophils (%) (Auto) 0.7 % (0.0-2.0) Erythrocyte Sedimentation Rate Pending C-Reactive Protein, Quantitative 8.3 mg/dL (0.00-0.90) H Objective HEAD AND NECK: No JVD LUNGS: Clear. CARDIOVASCULAR: Regular S1 and S2 with no gallop or murmur. ABDOMEN: Soft. EXTREMITIES: Left toe ulcer covered with dressing Luis Purdy MD Oct 02, 2019 09:06
--- NOTE | 2019-10-02 09:50 | General Progress Note ---
Assessment/Plan Status: stable Assessment/Plan: 84-year-old lady from [facility] with history of hypertension, uncontrolled diabetes, and Parkinson disease, who was brought to the emergency room by family member for altered mental status and weakness. #Osteomyelitis left foot/ 1st toe #Severe PVD #Severe sepsis #Group B strep, ESBL UTI and bacteremia - cont vancomycin, cefepime, flagyl day # 40/42 - ERIBERTO negative for vegetation. surveillance cultures are negative - wound culture right foot with normal maximino but likely polymicrobial infection - monitor labs, recent chest x-ray negative - s/p diflucan (for fungal uti) - ID following -General surgery consult appreciated - Podiatry consult appreciated #Poor oral intake - calorie count ordered - may need to be e valuated for PEG #Anemia, rule out acute blood loss. rule out GI bleed - improved - stool OB negative - appreciate Heme/onc recs - s/p 1 unit PRBC 09/27/19. Consent obtained from family - trend CBC #Hypokalemia #Hypernatremia resolved #Hypophosphatemia Replace as needed Continue to monitor #Uncontrolled DM II - A1c 9-->insulin sliding scale ac/hs, resistant scale, fsbg controlled #Parkinson's disease #Dementia - c/w PD regimen - supportive care - delirium precautions #NSTEMI type II 2/2 renal failure #HFpEF #HTN #Sinus dorian - resolved -d/c heparin gtt/acs protocol per cards, pt w/no chest pain, stable troponin. -Continue ASA -Cont. to hold statin due to rhabdomyolysis. -Decreased Lopressor from 25 mg to 12.5 mg bid due to low heart rate, then d/c on 08/29 for bradycardia, now resolved off Lopressor - s/p lasix 40 mg BID -Echocardiogram Nl EF -continue amlodipine 5 daily - cardiology consult appreciated #OWEN due to ATN - resolved avoid nephrotoxin medications #stage II sacral decubitus ulcer Appreciate wound consult Wound care Buckner in place for healing of wound Pain regimen DVT ppx: HSQ Code status: Full -goals of care have been discussed with family at bedside 09/15/2019 Time spent on patient care, 45 mins, >50% on counseling and coordination of care Time of this note may not reflect the time of the clinical encounter. Subjective Date patient seen: Oct 02, 2019 Time patient seen: 08:45 ROS Limited/Unobtainable: Yes Allergies: Coded Allergies: No Known Allergies (Unverified , 10/23/13) Subjective Follow up for osteomyelitis, day #40/ Patient unable to provide any information due to medical conditions Poor oral intake per RN Objective Last 24 Hour Vital Signs Date Time Temp Pulse Resp B/P (MAP) Pulse Ox O2 Delivery O2 Flow Rate FiO2 10/02/19 08:00 98.2 78 17 113/58 (76) 98 10/02/19 04:00 98.6 82 18 111/53 (72) 97 10/02/19 00:00 98.4 77 20 111/54 (73) 95 10/01/19 21:13 Room Air 10/01/19 20:00 99.1 82 20 110/52 (71) 95 10/01/19 16:00 97.1 83 18 115/61 (79) 95 10/01/19 12:00 97.5 83 18 110/59 (76) 97 Intake and Output 10/01/19 10/02/19 19:00 07:00 Intake Total 800 ml 50 ml Output Total 1150 ml 1100 ml Balance -350 ml -1050 ml IV Total 600 ml 50 ml Other 200 ml Output Urine Total 1150 ml 1100 ml Laboratory Tests 10/02/19 05:24: White Blood Count 8.1, Red Blood Count 3.55L, Hemoglobin 10.2L, Hematocrit 30.5L , Mean Corpuscular Volume 86, Mean Corpuscular Hemoglobin 28.7, Mean Corpuscular Hemoglobin Concent 33.3, Red Cell Distribution Width 16.8H, Platelet Count 311, Mean Platelet Volume 5.8L, Neutrophils (%) (Auto) 68.7, Lymphocytes (%) (Auto) 18.3L, Monocytes (%) (Auto) 11.1H, Eosinophils (%) (Auto ) 1.2, Basophils (%) (Auto) 0.7, Erythrocyte Sedimentation Rate 96H, C-Reactive Protein, Quantitative 8.3H Height (Feet): 5 Height (Inches): 3.00 Weight (Pounds): 127 General Appearance: alert, confused Neck: supple Cardiovascular: normal rate Respiratory/Chest: lungs clear, normal breath sounds Abdomen: non tender, soft Arvind Jimenez MD Oct 02, 2019 09:50
--- NOTE | 2019-10-02 15:47 | NUR ---
CASE MANAGEMENT:REVIEW SI;LEFT FOOT OSTEOMYELITIS. 98.8 88 20 111/54 95% ON RA CRP 8.3 IS; D5 IV @ 50 ML/HR VANCOMYCIN IV Q24 HRS CEFEPIME IV Q24 HRS FALGYL PO Q8 HRS SANTYL TOP QD OXYCODONE PO Q6 HRS PRN MED SURG STATUS PLAN;6 WEEKS ABX (DAY #38) DCP;FROM HOME
--- NOTE | 2019-10-02 16:56 | Infectious Diseases Prog Note ---
Assessment/Plan Assessment/Plan ASSESSMENT AND PLAN: 1. streptococcus agalactiae - group b bacteremia, ? endocarditis, esbl e.coli uti, sirs, leukocytosis, ? pna on chest x-ray - ? hcap/aspiration vs pulmonary edema, left foot great toe/1st toe wound infection - MRI c/w osteomyelitis, elevated sed rate f/u urine culture with persistent yeast - vancomycin, cefepime, flagyl - day # 40/42 - CRP improved significantly - 20.6 to 8.3, sed rate12 to 96 - ERIBERTO negative for vegetation, s/p tx for bacteremia - wound culture right foot with normal maximino but likely polymicrobial infection - monitor labs, recent chest x-ray negative - surgery note reviewed - left foot improving - s/p diflucan 2. Acute kidney injury with elevated creatinine. 3. History of diabetes. 4. weakness 5. Blood pressure treatment per primary care team and diabetes treatment per primary care team and consultants. 6. Parkinson's. 7. Dementia. 8. The patient does have also elevated troponin. Cardiology follow-up. 9. MAR was noted. 10. Case was discussed with RN. 11. No known allergies. 12. Social history is negative. 13. Family history is noncontributory. 14. Continue treatment per primary consultants. 15. Orders were noted and entered. Subjective Constitutional: Denies: fever HEENT: Denies: congestion Respiratory: Denies: shortness of breath Cardiovascular: Denies: chest pain Gastrointestinal/Abdominal: Denies: nausea, vomiting, diarrhea Genitourinary: Reports: other - + arnold Neurologic: Denies: headache Psychiatric: Denies: depression Skin: Denies: rash Hematologic: Denies: bleeding Musculoskeletal: Denies: pain Allergies: Coded Allergies: No Known Allergies (Unverified , 10/23/13) Objective Vital Signs Last 24 Hour Vital Signs Date Time Temp Pulse Resp B/P (MAP) Pulse Ox O2 Delivery O2 Flow Rate FiO2 10/02/19 16:00 97.7 81 18 117/59 (78) 98 10/02/19 12:00 98.8 88 17 119/60 (79) 98 10/02/19 09:00 Room Air 10/02/19 08:00 98.2 78 17 113/58 (76) 98 10/02/19 04:00 98.6 82 18 111/53 (72) 97 10/02/19 00:00 98.4 77 20 111/54 (73) 95 10/01/19 21:13 Room Air 10/01/19 20:00 99.1 82 20 110/52 (71) 95 Height (Feet): 5 Height (Inches): 3.00 Weight (Pounds): 127 General Appearance: no acute distress HEENT: normocephalic, atraumatic, anicteric, mucous membranes moist Respiratory/Chest: lungs clear, normal breath sounds, no respiratory distress, pleural rub Cardiovascular: normal rate, regular rhythm, no gallop/murmur, no JVD Abdomen: normal bowel sounds, soft, non tender, no organomegaly, non distended Genitourinary: other - no arnold Extremities: other - left foot covered Skin: no rash 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 Pleural space: Unremarkable. No pneumothorax. Heart: Borderline cardiomegaly, potentially exaggerated by portable technique. Mediastinum: Calcified aorta. Bones/joints: Osteopenia. Degenerative changes. IMPRESSION: Mild vascular congestion CT abdomen: Impression: Anasarca, as described, with generalized edema of subcutaneous abdominal fat, moderate-sized bilateral pleural effusions, pulmonary interstitial and airspace edema Compressive atelectasis of the lower lobes due to the pleural fluid Evidence of rectal fecal impaction and possible stercoral proctitis Pessary, likely malpositioned, as described. There is evidence of bladder floor relaxation despite the pessary Dilated extrahepatic bile ducts. Most likely related to patient's age as no downstream obstructive lesion is demonstrated. However, correlation with liver function tests is recommended, with consideration for MRCP if clinically indicated Questionable slight retrococcygeal decubitus changes. Correlate with findings Other findings as noted, including evidence of prior renal cortical scarring, Arnold catheter, uterine arcuate artery calcifications Chest x-ray - 09/05/19 - Indication: Cough Technique: One view of the chest Comparison: 08/24/2019 Findings: There is increased interstitial edema. There is evidence of left perihilar airspace disease There is suggestion of trace bilateral pleural effusions. The heart size is upper limits normal. Impression: Increased interstitial edema, since prior exam 08/24/2019 Suspect left perihilar consolidation Small bilateral pleural effusions Chest x-ray - 09/07/19 - IMPRESSION: 1. Interval mild improvement in the diffusely increased interstitial markings compared to the prior exam, suggesting improved pulmonary interstitial edema. 2. Linear atelectasis at the periphery of the left mid lung. 3. Possible small left pleural effusion. MRI left foot: IMPRESSION: Evidence of acute osteomyelitis involving the hallux as described above. Cellulitis. Microbiology Date/Time Source Procedure Growth Status 09/03/19 21:00 Blood Blood Culture - Final NO GROWTH AFTER 5 DAYS Complete 09/12/19 14:45 Indwelling Cath Urine Culture - Final Nehal Albicans Complete 09/07/19 13:12 Foot Left Gram Stain - Final Complete 09/07/19 13:12 Wound Culture - Final Usual Skin Maximino Complete Labs Test 09/29/19 18:50 09/30/19 05:49 10/01/19 06:10 10/02/19 05:24 Stool Occult Blood Negative (NEGATIVE) White Blood Count 7.9 K/UL (4.8-10.8) 8.1 K/UL (4.8-10.8) Red Blood Count 3.67 M/UL (4.20-5.40) 3.55 M/UL (4.20-5.40) Hemoglobin 10.6 G/DL (12.0-16.0) 10.2 G/DL (12.0-16.0) Hematocrit 31.5 % (37.0-47.0) 30.5 % (37.0-47.0) Mean Corpuscular Volume 86 FL (80-99) 86 FL (80-99) Mean Corpuscular Hemoglobin 28.9 PG (27.0-31.0) 28.7 PG (27.0-31.0) Mean Corpuscular Hemoglobin Concent 33.7 G/DL (32.0-36.0) 33.3 G/DL (32.0-36.0) Red Cell Distribution Width 16.3 % (11.6-14.8) 16.8 % (11.6-14.8) Platelet Count 339 K/UL (150-450) 311 K/UL (150-450) Mean Platelet Volume 5.9 FL (6.5-10.1) 5.8 FL (6.5-10.1) Neutrophils (%) (Auto) 72.8 % (45.0-75.0) 68.7 % (45.0-75.0) Lymphocytes (%) (Auto) 15.0 % (20.0-45.0) 18.3 % (20.0-45.0) Monocytes (%) (Auto) 10.0 % (1.0-10.0) 11.1 % (1.0-10.0) Eosinophils (%) (Auto) 1.2 % (0.0-3.0) 1.2 % (0.0-3.0) Basophils (%) (Auto) 1.0 % (0.0-2.0) 0.7 % (0.0-2.0) Sodium Level 133 MMOL/L (136-145) 134 MMOL/L (136-145) Potassium Level 3.7 MMOL/L (3.5-5.1) 4.0 MMOL/L (3.5-5.1) Chloride Level 103 MMOL/L (98-107) 102 MMOL/L (98-107) Carbon Dioxide Level 24 MMOL/L (21-32) 24 MMOL/L (21-32) Anion Gap 6 mmol/L (5-15) 9 mmol/L (5-15) Blood Urea Nitrogen 9 mg/dL (7-18) 8 mg/dL (7-18) Creatinine 0.8 MG/DL (0.55-1.30) 0.8 MG/DL (0.55-1.30) Estimat Glomerular Filtration Rate > 60 mL/min (>60) > 60 mL/min (>60) Glucose Level 198 MG/DL (74-106) 143 MG/DL (74-106) Calcium Level 8.2 MG/DL (8.5-10.1) 7.7 MG/DL (8.5-10.1) Total Bilirubin 0.4 MG/DL (0.2-1.0) 0.4 MG/DL (0.2-1.0) Aspartate Amino Transf (AST/SGOT) 16 U/L (15-37) 15 U/L (15-37) Alanine Aminotransferase (ALT/SGPT) < 6 U/L (12-78) 6 U/L (12-78) Alkaline Phosphatase 55 U/L (46-116) 54 U/L (46-116) Total Protein 6.7 G/DL (6.4-8.2) 6.1 G/DL (6.4-8.2) Albumin 1.5 G/DL (3.4-5.0) 1.6 G/DL (3.4-5.0) Globulin 5.2 g/dL 4.5 g/dL Albumin/Globulin Ratio 0.3 (1.0-2.7) 0.4 (1.0-2.7) Erythrocyte Sedimentation Rate 96 MM/HR (0-30) C-Reactive Protein, Quantitative 8.3 mg/dL (0.00-0.90) Laboratory Tests Test 10/02/19 05:24 White Blood Count 8.1 K/UL (4.8-10.8) Red Blood Count 3.55 M/UL (4.20-5.40) L Hemoglobin 10.2 G/DL (12.0-16.0) L Hematocrit 30.5 % (37.0-47.0) L Mean Corpuscular Volume 86 FL (80-99) Mean Corpuscular Hemoglobin 28.7 PG (27.0-31.0) Mean Corpuscular Hemoglobin Concent 33.3 G/DL (32.0-36.0) Red Cell Distribution Width 16.8 % (11.6-14.8) H Platelet Count 311 K/UL (150-450) Mean Platelet Volume 5.8 FL (6.5-10.1) L Neutrophils (%) (Auto) 68.7 % (45.0-75.0) Lymphocytes (%) (Auto) 18.3 % (20.0-45.0) L Monocytes (%) (Auto) 11.1 % (1.0-10.0) H Eosinophils (%) (Auto) 1.2 % (0.0-3.0) Basophils (%) (Auto) 0.7 % (0.0-2.0) Erythrocyte Sedimentation Rate 96 MM/HR (0-30) H C-Reactive Protein, Quantitative 8.3 mg/dL (0.00-0.90) H Current Medications Medications (Trade) Dose Ordered Sig/Krystin Route PRN Reason Start Time Stop Time Status Last Admin Dose Admin Acetaminophen (Tylenol) 650 mg Q6H PRN ORAL Mild Pain/Temp > 100.5 09/27/19 18:19 10/27/19 18:18 09/27/19 18:34 Cefepime HCl 2 gm/ Sodium Chloride 110 ml @ 220 mls/hr Q24H IVPB 09/16/19 21:00 10/04/19 23:59 10/01/19 20:32 Collagenase (Santyl) 1 applic DAILY TOPIC 09/12/19 09:00 10/06/19 16:59 10/02/19 08:07 Dextrose 1,000 ml @ 50 mls/hr Q20H IV 09/26/19 00:30 10/26/19 00:29 10/01/19 20:35 Dextrose (Dextrose 50%) 25 ml Q30M PRN IV Hypoglycemia 09/30/19 07:00 10/30/19 06:59 Dextrose (Dextrose 50%) 50 ml Q30M PRN IV Hypoglycemia 09/30/19 07:00 10/30/19 06:59 Insulin Aspart (NovoLOG) BEFORE MEALS AND HS SUBQ 09/30/19 11:30 10/30/19 11:29 10/02/19 12:43 Metronidazole (Flagyl) 500 mg Q8H ORAL 09/13/19 01:00 10/04/19 23:59 10/02/19 08:06 Vancomycin HCl (Vanco rx to dose) 1 ea DAILY PRN MISC Per rx protocol 09/12/19 08:45 10/12/19 08:44 Vancomycin HCl 750 mg/Sodium Chloride 275 ml @ 183.333 mls/hr Q24H IVPB 09/20/19 05:00 10/04/19 23:59 10/02/19 05:15 Gerardo Toledo MD Oct 02, 2019 16:56
--- NOTE | 2019-10-02 19:39 | NUR ---
HAND-OFF: Report given to Tonya MORROW RN.
--- NOTE | 2019-10-02 19:48 | NUR ---
NURSE NOTES: Patient is in bed, awake and nonverbal. On room air with no signs of distress or SOB. IV intact and patent. Bed locked and in lowest position. HOB elevated. Bed alarm activated. Will continue to monitor the patient.
[2019-10-02] MEDS: Cefepime HCl 2 GM in NS 110 ML IVPB SCH (20:54)
[2019-10-03] MEDS: metroNIDAZOLE 500mg tab ORAL SCH ×3 (00:15→17:49)
[2019-10-03 03:55] VITALS: BP 123/62
[2019-10-03] MEDS: Vancomycin 750 MG in NS 275 ML IVPB SCH (04:36)
[2019-10-03] MEDS: NovoLOG Insulin Flexpen SUBQ SCH ×4 (06:35→20:27)
--- NOTE | 2019-10-03 07:04 | NUR ---
HAND-OFF: Report given to ISHAAN Lomax.
--- NOTE | 2019-10-03 07:38 | NUR ---
NURSE NOTES: PT RESTING IN BED. IN NO APPARENT DISTRESS AT THIS TIME. IN SEMI-ROBLES'S POSITION WITH HOB ELEVATED. BED IN LOWEST POSITION WITH BEDSIDE RAILS X3 RAISED. BED ALARM ON ZONE 1. D5W RUNNING AT 50CC/H ON RIGHT AC; IV ACCESS ASYMPTOMATIC, PATENT AND INTACT. WILL CONTINUE TO MONITOR.
[2019-10-03 08:00] VITALS: BP 103/47
--- NOTE | 2019-10-03 10:38 | NUR ---
RD ASSESSMENT & RECOMMENDATIONS SEE CARE ACTIVITY FOR COMPLETE ASSESSMENT DAILY ESTIMATED NEEDS: Needs based on Wounds, DM 49kg 30-35 kcals/kg 5118-8936 total kcals 1.25-2 g protein/kg 61-98 g total protein 25-30m mL/kg 4680-3510 total fluid mLs WEI COUNT X 24 HRS COMPLETED 10/02 breakfast: 0% lunch: 0% dinner: 100% minestrone soup 0% of everything else 10/03 breakfast 50% orange juice 50% oatmeal 60% scrambled egg 50% toast ----- RESULTS: Pt refused most meals on 10/02 (0% breakfast and lunch, had only soup @ lunch), but w/ improved acceptance this AM. Per [facility], today is the first time taking care of patient, pt able to make needs known while [facility] feeding the patient, asking for juice, milk etc. Pt consumed 50% or more of each meal item this AM. [facility] unsure if pt consumed Glucerna. Despite improved meal intake this AM, pt's meal intake has been poor and inconsistent since admission and PO intake seems to have decreased even more recently (mostly 0-25% since 09/27) and is inadequate to meet nutritional needs amos given pt is at increased nutritional need due to + wasting and wounds. Pt remains full code at this time. Discussed the result w/ MD, per MD will consult GI for possible PEG evaluation. NUTRITION DIAGNOSIS: Increased kcal and pro needs r/t wound healing as evidenced by pt w/ multiple areas of skin breakdown including unstageable L hip wounds x2, refer to WC eval for full assessment, pt w/ prolonged poor intake. CURRENT DIET:CCHO MED, liquify pureed moist w/ NTL PO DIET RECOMMENDATIONS: Liberalized REGULAR / texture per [facility] + Glucerna TID w/ meals ENTERAL NUTRITION RECOMMENDATIONS: IF TF PART OF POC -> Glucerna 1.2 @ 55ml/hr x 24 hrs to provide 1320ml, 1584kcal, 79g prot, 1062ml free water * IF TF PART OF POC, obtain GI access -> initiate Glucerna 1.2 @ 15ml/hr x 6 hrs -> advance 10ml q 4-6 hrs as tolerated to goal rate -. HOB over 30 degrees - Without IVF, H20 flush of 100ml q 6 hrs ADDITIONAL RECOMMENDATIONS: 1) Glucerna TID w/ meals added; Encourage HS snack intake 2) Monitor for hypoglycemica w/ poor PO- now w/ added D5 3) Wound care:add Vit C 250mg BID + MVI x 1 + Bret 1pkt BID if tolerated 4) Calibrated bed scale wts ( w/ added P200 mattress + pump) 5) Rec appetite stimulant due to prolonged poor PO intake OR NONORAL FEEDING IF PART OF POC (PROLONGED POOR AND VARIABLE PO) Wei Count x 24 hrs completed 09/23, INADEQUATE INTAKE
--- NOTE | 2019-10-03 11:03 | Cardiac Electrophysiology PN ---
Assessment/Plan Assessment/Plan 1. NSTEMI type 2 due to renal failure with creatinine 1.7. Troponins low level and flat. No CP. ECG LBBB Nl EF and no vegetations. On aspirin. Off statin for rhabdomyolysis. Off beta lisbeth for bradycardia 2. Hypertension. On Norvasc 5 daily 3. LBBB and sinus dorian in 30s. Resolved. Off tele 4. Nonsustained VT.Nl EF 5. Acute on chronic diastolic CHF. Echo Nl EF. 6. Urinary tract infection, on IV antibiotic. 7. 4/4 Strep Bacteremia with WBC 25K. Down to 8.8 K on Abx No endocarditis. ERIBERTO on 09/10/19 no vegetation. 8. S/P Renal failure. Resolved 9. Uncontrolled diabetes 10. Left toe ulcer. On Abx per ID and podiatry 11. Malnutrition. Calorie count in progress. May need PEG DW RN Subjective Subjective Comfortable in NAD.No events. Is on Calorie count. Objective Last 24 Hour Vital Signs Date Time Temp Pulse Resp B/P (MAP) Pulse Ox O2 Delivery O2 Flow Rate FiO2 10/03/19 09:00 Room Air 10/03/19 08:00 98.0 84 20 103/47 (65) 98 10/03/19 05:15 Room Air 10/03/19 03:55 98.8 85 18 123/62 (82) 96 10/02/19 23:55 97.0 82 16 116/62 (80) 98 10/02/19 20:29 Room Air 10/02/19 20:00 98.2 78 17 113/58 (76) 98 10/02/19 16:00 97.7 81 18 117/59 (78) 98 10/02/19 12:00 98.8 88 17 119/60 (79) 98 Intake and Output 10/02/19 10/03/19 19:00 07:00 Intake Total 565 ml 50 ml Output Total 200 ml 1200 ml Balance 365 ml -1150 ml Intake Oral 15 ml IV Total 550 ml 50 ml Output Urine Total 200 ml 1200 ml # Bowel Movements 1 Objective HEAD AND NECK: No JVD LUNGS: Clear. CARDIOVASCULAR: Regular S1 and S2 with no gallop or murmur. ABDOMEN: Soft. EXTREMITIES: Left toe ulcer covered with dressing Luis Purdy MD Oct 03, 2019 11:03
--- NOTE | 2019-10-03 11:48 | Surgery Progress Note ---
Surgery Progress Note Subjective Additional Comments comfortable dressings changed eschar from left foot wound off now and underlying tissue with good back bleeding Objective Last 24 Hour Vital Signs Date Time Temp Pulse Resp B/P (MAP) Pulse Ox O2 Delivery O2 Flow Rate FiO2 10/03/19 09:00 Room Air 10/03/19 08:00 98.0 84 20 103/47 (65) 98 10/03/19 05:15 Room Air 10/03/19 03:55 98.8 85 18 123/62 (82) 96 10/02/19 23:55 97.0 82 16 116/62 (80) 98 10/02/19 20:29 Room Air 10/02/19 20:00 98.2 78 17 113/58 (76) 98 10/02/19 16:00 97.7 81 18 117/59 (78) 98 10/02/19 12:00 98.8 88 17 119/60 (79) 98 I&O Intake and Output 10/02/19 10/03/19 19:00 07:00 Intake Total 565 ml 50 ml Output Total 200 ml 1200 ml Balance 365 ml -1150 ml Intake Oral 15 ml IV Total 550 ml 50 ml Output Urine Total 200 ml 1200 ml # Bowel Movements 1 Dressing: saturated Wound: clean Cardiovascular: RSR Respiratory: clear Abdomen: soft, non-tender, present bowel sounds Extremities: no cyanosis, other Plan Problems: (1) Decubitus skin ulcer Assessment & Plan: Base of sacral wound is 90% soft necrosis with surrounding moist erythematous margins.Wound is malodorous Periwound is erythematous without induration or elevation in skin temp.(L)8cm x (W)10.5cm. Darker skin tone noted to R and L ischium. Unstageable pressure injury noted L hip Base of wound 90% necrotic cap that is semi-detached at edges,Oozing small amt brown exudate. Remaining 10% of wound is moist and martha . Edges are erythematous and flat.Wound is malodorous. Periwound is erythematous and indurated. No elevation in skin temp. (L)2.5cm x ( W)1.9cm. Two small dark skin pigmentations R Hip that are in close proximity. NO erythema or induration noted. L foot edematous. Dorsal aspect of L foot is dusky. Necrotic ulcer L hallux /L 1st metatarsal (L)3.7cm x (W)5.2cm.Edges are moist and erythematous. Wound is malodorous. Small amt brown exudate noted. Periwound including L st metatarsal is dusky and fluctuant. L heel is fluctuant with non-blanching erythema. Stable dry eschar noted to distal /lateral R foot. Periwound without erythema, induration or fluctuance.(L)0.4cm x (W)0.3cm. Stable dry eschar noted to lateral R 5th metatarsal.(L)0.3cm x (W)0.3cm. NO erythema,induration or fluctuance periwound. R heel is boggy with non-blanching erythema. change Tx orders for Sacrum and L hip to Santyl Moist gauze daily and prn. Primary nurse is aware and orders changed. left foot improving no drainage now Unstageable pressure injury Sacrum. Base of wound has 80% mixed soft necrosis and slough ,20%pink granulation.Macerated borders.(L)9cm x (W)8.5cm. Periwound skin tone is dark without erythema or induration. Resolving pressure injury L trochanter. [place] granulation at base of wound with dry pink epithelial borders. (L)2.2cm x (W)3.3cm. No odor or exudate noted. No evidence of skin breakdown periwound. Unstageable pressure injury L hallux.. Base of wound 100% necrotic with semidetached borders that are erythmatous and moist.(L)4.8cm x (W)5.7cm. Wound is malodorous. Periwound is fluctuant. Dorsal aspect of L foot is less dusky in comparison to last wound assessment. L 2nd metatarsal dusky but improving Both heels are soft but blanchable. eschar on left foot off now wound bed with good tissue no drainage minimal slough Tx.Plan: Cleanse Sacral wound with Saline. Apply Nickel thick Layer Santyl with Saline moistened Gauze. Apply Moisture Barrier Paste periwound. Cover with Optifoam drsg. Daily and prn. Cleanse L hip wound with Saline. Apply Nickel Thick layer of Santyl with Saline Moistened Gauze. Apply Moisture Barrier Paste periwound. Cover with Optifoam drsg.Daily and prn. Cleanse Wound L Hallux with Saline. Apply Nickel thick Layer Santyl with Saline moistened gauze. Cover with ABD Pad and wrap with Kerlix Daily and prn. Apply Cavilon Skin Barrier to Distal/Lateral R foot /R 5th metatarsal Daily. Apply Cavilon SKin Barrier to both heels. Cover each heel with Optifoam drsg. Change every 7 days and prn. Apply Cavilon Skin Barrier to R hip. Cover with Optifoam drsg. Change every 7 days and prn. APM/YURIY Mattress overlay. Reposition at least every 2hours or as tolerated. Off-load heels with pillow. (2) Sepsis Assessment & Plan: Leukocytosis, abnormal labs, tachycardic, per report fevers UA identified urosepsis bacteremic leukocytosis resolved improving overall anemia fevers resolved On antibiotics as per infectious disease Trend labs Okay for diet A.m. labs Wounds unlikely etiology of sepsis as they are chronic and do not look actively infected discussed with medical teams discussed with podiatry - orders placed by no note identified. as per podiatry IV abx 6 weeks over amputation. plan for abx d/c planning cont abx oral for d/c outpatient wound care follow up We will follow with recommendations thank you for let me participate in patient' s care Darrius Miller Oct 03, 2019 11:48
[2019-10-03 12:00] VITALS: BP 105/46
--- NOTE | 2019-10-03 12:28 | NUR ---
ST NOTES: SWALLOW STATUS: PATIENT ALERT BUT SEEMS DROWSY AND CONFUSED. REFUSED PO TRIALS WITH ZOOLOGY TEACHER. PER ECOLOGICAL MODELERGARFIELD, SHE TAKES 40 MINUTES TO TAKE A LIQUIFIED PUREED LIKE NECTAR THICK SOUP TSP AND TOOK 60% W/O OVERT ASPIRATION. PER RNNEGRA, SHE ONLY TOOK ONE BOWL OF SOUP SLOWLY W/O OVERT ASPIRATION. INTAKE GOALS NOT MET AND ARE INADEQUATE (REFUSES/0/15/25%). SPOKE TO HER FAMILY MEMBER (CROATIAN-SPEAKING ONLY) WHO AGREED THAT THE PATIENT WILL SOMETIMES REFUSE PO EVEN WITH THEM. THE FAMILY WILL DISCUSS PEG OPTION WITH PATIENT AND OTHER FAMILY MEMBERS. THEY WILL CALL ME LATER TODAY. DR HAWTHORNE TO HAVE GI CONSULT REGARDING POSSIBLE PEG. PATIENT NOT ALERT FOR MODIFIED BARIUM SWALLOW STUDY NOW BUT WOULD LIKELY CONTINUE WITH ORAL GRATIFICATION FOR QUALITY OF LIFE PURPOSES. EDUCATED/TRAINED STAFF IN POSTED PRECAUTIONS. PLAN: CONTINUE WITH CURRENT DIET/LIQUIDS AND POSTED ASPIRATION PRECAUTIONS MBSS IF ALERT LIKELY AFTER PEG PLACEMENT OR OP IF DC
--- NOTE | 2019-10-03 13:06 | General Progress Note ---
Assessment/Plan Status: stable Assessment/Plan: 84-year-old lady from [facility] with history of hypertension, uncontrolled diabetes, and Parkinson disease, who was brought to the emergency room by family member for altered mental status and weakness. #Osteomyelitis left foot/ 1st toe #Severe PVD #Severe sepsis #Group B strep, ESBL UTI and bacteremia - cont vancomycin, cefepime, flagyl day # 40/42 - ERIBERTO negative for vegetation. surveillance cultures are negative - wound culture right foot with normal maximino but likely polymicrobial infection - monitor labs, recent chest x-ray negative - s/p diflucan (for fungal uti) - ID following -General surgery consult appreciated - Podiatry consult appreciated #Poor oral intake - calorie count reviewed with RD - Will discuss PEG placement with family #Anemia, rule out acute blood loss. rule out GI bleed - improved - stool OB negative - appreciate Heme/onc recs - s/p 1 unit PRBC 09/27/19. Consent obtained from family - trend CBC #Hypokalemia #Hypernatremia resolved #Hypophosphatemia Replace as needed Continue to monitor #Uncontrolled DM II - A1c 9-->insulin sliding scale ac/hs, resistant scale, fsbg controlled #Parkinson's disease #Dementia - c/w PD regimen - supportive care - delirium precautions #NSTEMI type II 2/2 renal failure #HFpEF #HTN #Sinus dorian - resolved -d/c heparin gtt/acs protocol per cards, pt w/no chest pain, stable troponin. -Continue ASA -Cont. to hold statin due to rhabdomyolysis. -Decreased Lopressor from 25 mg to 12.5 mg bid due to low heart rate, then d/c on 08/29 for bradycardia, now resolved off Lopressor - s/p lasix 40 mg BID -Echocardiogram Nl EF -continue amlodipine 5 daily - cardiology consult appreciated #OWEN due to ATN - resolved avoid nephrotoxin medications #stage II sacral decubitus ulcer Appreciate wound consult Wound care Buckner in place for healing of wound Pain regimen DVT ppx: HSQ Code status: Full -goals of care have been discussed with family at bedside 09/15/2019 Time spent on patient care, 45 mins, >50% on counseling and coordination of care Time of this note may not reflect the time of the clinical encounter. Subjective Date patient seen: Oct 03, 2019 Time patient seen: 08:22 ROS Limited/Unobtainable: Yes Allergies: Coded Allergies: No Known Allergies (Unverified , 10/23/13) Subjective Follow up for osteomyelitis, day # Patient unable to provide any information due to medical conditions Poor oral intake per RN Objective Last 24 Hour Vital Signs Date Time Temp Pulse Resp B/P (MAP) Pulse Ox O2 Delivery O2 Flow Rate FiO2 10/03/19 09:00 Room Air 10/03/19 08:00 98.0 84 20 103/47 (65) 98 10/03/19 05:15 Room Air 10/03/19 03:55 98.8 85 18 123/62 (82) 96 10/02/19 23:55 97.0 82 16 116/62 (80) 98 10/02/19 20:29 Room Air 10/02/19 20:00 98.2 78 17 113/58 (76) 98 10/02/19 16:00 97.7 81 18 117/59 (78) 98 Intake and Output 10/02/19 10/03/19 19:00 07:00 Intake Total 565 ml 50 ml Output Total 200 ml 1200 ml Balance 365 ml -1150 ml Intake Oral 15 ml IV Total 550 ml 50 ml Output Urine Total 200 ml 1200 ml # Bowel Movements 1 Height (Feet): 5 Height (Inches): 3.00 Weight (Pounds): 127 General Appearance: no apparent distress, alert, confused Neck: supple Cardiovascular: normal rate, regular rhythm Respiratory/Chest: lungs clear, normal breath sounds Abdomen: non tender, soft Arvind Jimenez MD Oct 03, 2019 13:06
--- NOTE | 2019-10-03 14:52 | NUR ---
CASE MANAGEMENT:REVIEW SI;LT FOOT OSTEOMYELITIS. PPR ORAL INTAKE. PARKINSONS. DEMENTIA. 98.8 85 20 103/47 96% ON RA NO LBS AVAILABLE IS;CEFEPIME IV Q24 HRS VANCOMYCIN IV Q24 HRS FLAGYL PO Q8 HRS SANTYL TOP QD DEXTROSE IV @ 50 ML/HR MED SURG STATUS PLAN;DAY #39 OF 6 WEEKS ABX DCP;FROM HOME
--- NOTE | 2019-10-03 15:39 | NUR ---
NURSE NOTES:WOUND CARE NOTES:Unstageable Sacral pressure injury. Base of wound has 90% slough with surrounding pink granulation.No odor or exudate noted.(L)9.7cm x (W)9.3cm.NO evidence of further skin breakdown periwound. R trochanteric pressure injury resolving. [place] epithelial at base of wound. Edges flat and adherent to base of wound. No evidence of skin breakdown periwound.(L)2.5cm x (W)2.6cm. Unstageable pressure injury L hallux. Base of wound is 100% necrotic with semidetached borders. Marginal erythema periwound. Wound is malodorous (L)5cm x (W)5.7cm. R foot and metatarsals R foot less dusky in comparison to last wound assessment. Both heels are soft but easily blanchable.No new skin breakdown evident.Wound tx are effective and continued as ordered. All wound prevention protocols continued as ordered.
[2019-10-03 16:00] VITALS: BP 123/57
--- NOTE | 2019-10-03 19:45 | NUR ---
NURSE NOTES: Received report from ISHAAN Lomax. AAO x 1, confused, on room air. IV site intact and running IVF. Fall, aspiration, SZ precaution maintained. HOB elevated. Buckner intact and secured to the leg. Wound dressing clean and dry. Bed locked, alarm on, side rails padded and up, call light within reach. Will continue to monitor.
--- NOTE | 2019-10-03 19:47 | NUR ---
HAND-OFF: Report given to Bonnie RODRIGUES RN.
[2019-10-03 20:00] VITALS: BP 120/59
[2019-10-03] MEDS: Cefepime HCl 2 GM in NS 110 ML IVPB SCH (20:26)
[2019-10-04] VITALS: BP 126/78
[2019-10-04] MEDS: metroNIDAZOLE 500mg tab ORAL SCH ×3 (01:11→17:22)
[2019-10-04 03:58] VITALS: BP 101/41
[2019-10-04] MEDS: Vancomycin 750 MG in NS 275 ML IVPB SCH (05:24)
[2019-10-04] MEDS: NovoLOG Insulin Flexpen SUBQ SCH ×4 (05:39→21:05)
[2019-10-04 06:42] LABS: ALANINE AMINOTRANSFERASE 8 U/L (12-78); ALBUMIN 1.4 G/DL (3.4-5.0); ALBUMIN/GLOBULIN RATIO 0.3 (1.0-2.7); ALKALINE PHOSPHATASE 58 U/L (46-116); ANION GAP 9 mmol/L (5-15); ASPARTATE AMINO TRANSFERASE 14 U/L (15-37); BILIRUBIN,TOTAL 0.4 MG/DL (0.2-1.0); BLOOD UREA NITROGEN 11 mg/dL (7-18); CARBON DIOXIDE 24 MMOL/L (21-32); CHLORIDE 103 MMOL/L (98-107); CREATININE 0.9 MG/DL (0.55-1.30); POTASSIUM 3.5 MMOL/L (3.5-5.1); SODIUM 136 MMOL/L (136-145)
[2019-10-04 07:00] LABS: BASOPHILS % (AUTO) 1.2 % (0.0-2.0); HEMATOCRIT 28.9 % (37.0-47.0); HEMOGLOBIN 9.6 G/DL (12.0-16.0); LYMPHOCYTES % (AUTO) 20.7 % (20.0-45.0); MEAN CORPUSCULAR VOLUME 87 FL (80-99); MONOCYTES % (AUTO) 13.9 % (1.0-10.0); NEUTROPHILS % (AUTO) 62.2 % (45.0-75.0); PLATELET COUNT 317 K/UL (150-450); RED BLOOD COUNT 3.33 M/UL (4.20-5.40); RED CELL DISTRIBUTION WIDTH 16.8 % (11.6-14.8); WHITE BLOOD COUNT 7.5 K/UL (4.8-10.8)
--- NOTE | 2019-10-04 07:48 | NUR ---
HAND-OFF: Report given to ISHAAN Daugherty.
[2019-10-04 08:00] VITALS: BP 121/64
--- NOTE | 2019-10-04 08:00 | NUR ---
NURSE NOTES: Patient awake and alert to name,respirations unlabored.IV fluids infusing as ordered.Buckner catheter is in place and draining clear olga color urine.HOB is elevated,will assist patient with meals.Bed alarm is on,call light within reach.
--- NOTE | 2019-10-04 09:49 | General Progress Note ---
Assessment/Plan Status: stable Assessment/Plan: 84-year-old lady from [facility] with history of hypertension, uncontrolled diabetes, and Parkinson disease, who was brought to the emergency room by family member for altered mental status and weakness. #Osteomyelitis left foot/ 1st toe #Severe PVD #Severe sepsis #Group B strep, ESBL UTI and bacteremia - cont vancomycin, cefepime, flagyl day # 42/42 - ERIBERTO negative for vegetation. surveillance cultures are negative - wound culture right foot with normal maximino but likely polymicrobial infection - monitor labs, recent chest x-ray negative - s/p diflucan (for fungal uti) - ID following -General surgery consult appreciated - Podiatry consult appreciated #Poor oral intake - calorie count reviewed with RD - GI consult for PEG #Anemia, rule out acute blood loss. rule out GI bleed - improved - stool OB negative - appreciate Heme/onc recs - s/p 1 unit PRBC 09/27/19. Consent obtained from family - trend CBC #Hypokalemia #Hypernatremia resolved #Hypophosphatemia Replace as needed Continue to monitor #Uncontrolled DM II - A1c 9-->insulin sliding scale ac/hs, resistant scale, fsbg controlled #Parkinson's disease #Dementia - c/w PD regimen - supportive care - delirium precautions #NSTEMI type II 2/2 renal failure #HFpEF #HTN #Sinus dorian - resolved -d/c heparin gtt/acs protocol per cards, pt w/no chest pain, stable troponin. -Continue ASA -Cont. to hold statin due to rhabdomyolysis. -Decreased Lopressor from 25 mg to 12.5 mg bid due to low heart rate, then d/c on 08/29 for bradycardia, now resolved off Lopressor - s/p lasix 40 mg BID -Echocardiogram Nl EF -continue amlodipine 5 daily - cardiology consult appreciated #OWEN due to ATN - resolved avoid nephrotoxin medications #stage II sacral decubitus ulcer Appreciate wound consult Wound care Buckner in place for healing of wound Pain regimen DVT ppx: HSQ Code status: Full -goals of care have been discussed with family at bedside 09/15/2019 Time of this note may not reflect the time of the clinical encounter. Subjective Date patient seen: Oct 04, 2019 Time patient seen: 09:00 ROS Limited/Unobtainable: Yes Allergies: Coded Allergies: No Known Allergies (Unverified , 10/23/13) Subjective Follow up for osteomyelitis, day # Patient unable to provide any information due to medical conditions Poor oral intake per RN. Objective Last 24 Hour Vital Signs Date Time Temp Pulse Resp B/P (MAP) Pulse Ox O2 Delivery O2 Flow Rate FiO2 10/04/19 03:58 98.4 73 18 101/41 (61) 97 10/04/19 00:00 99.4 75 18 126/78 (94) 97 10/03/19 21:00 Room Air 10/03/19 20:00 98.6 93 22 120/59 (79) 96 10/03/19 16:00 97.8 90 20 123/57 (79) 99 10/03/19 12:00 98.0 83 20 105/46 (65) 97 Intake and Output 10/03/19 10/04/19 19:00 07:00 Intake Total 860 ml 733.3 ml Output Total 500 ml 700 ml Balance 360 ml 33.3 ml Intake Oral 360 ml IV Total 500 ml 733.3 ml Output Urine Total 500 ml 700 ml # Bowel Movements 2 Laboratory Tests 10/04/19 05:10: White Blood Count 7.5, Red Blood Count 3.33L, Hemoglobin 9.6L, Hematocrit 28.9L , Mean Corpuscular Volume 87, Mean Corpuscular Hemoglobin 28.8, Mean Corpuscular Hemoglobin Concent 33.1, Red Cell Distribution Width 16.8H, Platelet Count 317, Mean Platelet Volume 6.3L, Neutrophils (%) (Auto) 62.2, Lymphocytes (%) (Auto) 20.7, Monocytes (%) (Auto) 13.9H, Eosinophils (%) (Auto) 2.0, Basophils (%) (Auto) 1.2, Sodium Level 136, Potassium Level 3.5, Chloride Level 103, Carbon Dioxide Level 24, Anion Gap 9, Blood Urea Nitrogen 11, Creatinine 0.9, Estimat Glomerular Filtration Rate 59.4, Glucose Level 164H, Calcium Level 8.0L, Total Bilirubin 0.4, Aspartate Amino Transf (AST/SGOT) 14L, Alanine Aminotransferase (ALT/SGPT) 8L, Alkaline Phosphatase 58, Total Protein 6.5, Albumin 1.4L, Globulin 5.1, Albumin/Globulin Ratio 0.3L Height (Feet): 5 Height (Inches): 3.00 Weight (Pounds): 127 General Appearance: alert, confused Neck: normal alignment, supple Respiratory/Chest: lungs clear, normal breath sounds Abdomen: non tender, soft Arvind Jimenez MD Oct 04, 2019 09:49
--- NOTE | 2019-10-04 13:07 | NUR ---
CASE MANAGEMENT:REVIEW SI;LT FOOT OSTEOMYELITIS. POOR ORAL INTAKE. 99.4 93 22 120/59 94% ON RA BG 164 CA 8.0 IS;CEFEPIME IV Q24 HRS VANCOMYCIN IV Q24 HRS IVF D5 @ 50 ML/HR FLAGYL PO Q8 HRS MED SURG STATUS PLAN;6 WEEKS IV ABX (DAY #40) DCP;FROM HOME
--- NOTE | 2019-10-04 13:22 | General Progress Note ---
Assessment/Plan Problem List: (1) Anemia ICD Codes: D64.9 - Anemia, unspecified SNOMED: 359470218 (2) PAD (peripheral artery disease) ICD Codes: I73.9 - Peripheral vascular disease, unspecified SNOMED: 426414436 (3) Urinary tract infection due to ESBL Klebsiella ICD Codes: N39.0 - Urinary tract infection, site not specified; B96.89 - Other specified bacterial agents as the cause of diseases classified elsewhere SNOMED: 134381036, 371744182172445 (4) Diabetes mellitus with hyperglycemia ICD Codes: E11.65 - Type 2 diabetes mellitus with hyperglycemia SNOMED: 07111375, 12499406 (5) Decubitus skin ulcer ICD Codes: L89.90 - Pressure ulcer of unspecified site, unspecified stage SNOMED: 475855867 (6) HTN (hypertension) ICD Codes: I10 - HTN (hypertension) SNOMED: 69751782 (7) FTT (failure to thrive) in adult ICD Codes: R62.7 - Adult failure to thrive SNOMED: 087051319 Status: stable Assessment/Plan: abx wound care fu labs plan PEG for Monday Subjective ROS Limited/Unobtainable: No Allergies: Coded Allergies: No Known Allergies (Unverified , 10/23/13) Objective Last 24 Hour Vital Signs Date Time Temp Pulse Resp B/P (MAP) Pulse Ox O2 Delivery O2 Flow Rate FiO2 10/04/19 10:17 Room Air 10/04/19 08:00 97.4 70 17 121/64 (83) 94 10/04/19 03:58 98.4 73 18 101/41 (61) 97 10/04/19 00:00 99.4 75 18 126/78 (94) 97 10/03/19 21:00 Room Air 10/03/19 20:00 98.6 93 22 120/59 (79) 96 10/03/19 16:00 97.8 90 20 123/57 (79) 99 Intake and Output 10/03/19 10/04/19 19:00 07:00 Intake Total 860 ml 733.3 ml Output Total 500 ml 700 ml Balance 360 ml 33.3 ml Intake Oral 360 ml IV Total 500 ml 733.3 ml Output Urine Total 500 ml 700 ml # Bowel Movements 2 Laboratory Tests 10/04/19 05:10: White Blood Count 7.5, Red Blood Count 3.33L, Hemoglobin 9.6L, Hematocrit 28.9L , Mean Corpuscular Volume 87, Mean Corpuscular Hemoglobin 28.8, Mean Corpuscular Hemoglobin Concent 33.1, Red Cell Distribution Width 16.8H, Platelet Count 317, Mean Platelet Volume 6.3L, Neutrophils (%) (Auto) 62.2, Lymphocytes (%) (Auto) 20.7, Monocytes (%) (Auto) 13.9H, Eosinophils (%) (Auto) 2.0, Basophils (%) (Auto) 1.2, Sodium Level 136, Potassium Level 3.5, Chloride Level 103, Carbon Dioxide Level 24, Anion Gap 9, Blood Urea Nitrogen 11, Creatinine 0.9, Estimat Glomerular Filtration Rate 59.4, Glucose Level 164H, Calcium Level 8.0L, Total Bilirubin 0.4, Aspartate Amino Transf (AST/SGOT) 14L, Alanine Aminotransferase (ALT/SGPT) 8L, Alkaline Phosphatase 58, Total Protein 6.5, Albumin 1.4L, Globulin 5.1, Albumin/Globulin Ratio 0.3L Height (Feet): 5 Height (Inches): 3.00 Weight (Pounds): 127 General Appearance: no apparent distress EENT: normal ENT inspection Neck: supple Cardiovascular: normal rate Respiratory/Chest: decreased breath sounds Abdomen: normal bowel sounds, non tender, soft Nelson Phoenix MD Oct 04, 2019 13:22
--- NOTE | 2019-10-04 15:24 | Infectious Diseases Prog Note ---
Assessment/Plan Assessment/Plan ASSESSMENT AND PLAN: 1. streptococcus agalactiae - group b bacteremia, ? endocarditis, esbl e.coli uti, sirs, leukocytosis, ? pna on chest x-ray - ? hcap/aspiration vs pulmonary edema, left foot great toe/1st toe wound infection - MRI c/w osteomyelitis, elevated sed rate f/u urine culture with persistent yeast - vancomycin, cefepime, flagyl - day # 42/42, discontinue abx - CRP improved significantly - 20.6 to 8.3, sed rate12 to 96 - ERIBERTO negative for vegetation, s/p tx for bacteremia - wound culture right foot with normal maximino but likely polymicrobial infection - monitor labs, recent chest x-ray negative - surgery note reviewed - left foot improving - s/p diflucan 2. Acute kidney injury with elevated creatinine. 3. History of diabetes. 4. weakness 5. Blood pressure treatment per primary care team and diabetes treatment per primary care team and consultants. 6. Parkinson's. 7. Dementia. 8. The patient does have also elevated troponin. Cardiology follow-up. 9. MAR was noted. 10. Case was discussed with RN. 11. No known allergies. 12. Social history is negative. 13. Family history is noncontributory. 14. Continue treatment per primary consultants. 15. Orders were noted and entered. Subjective Constitutional: Denies: fever HEENT: Denies: congestion Respiratory: Denies: shortness of breath Cardiovascular: Denies: chest pain Gastrointestinal/Abdominal: Denies: nausea, vomiting, diarrhea Genitourinary: Reports: other - + foeo Neurologic: Reports: other - NA Psychiatric: Reports: other - NA Skin: Denies: rash Hematologic: Denies: bleeding Musculoskeletal: Reports: other - NA Allergies: Coded Allergies: No Known Allergies (Unverified , 10/23/13) Objective Vital Signs Last 24 Hour Vital Signs Date Time Temp Pulse Resp B/P (MAP) Pulse Ox O2 Delivery O2 Flow Rate FiO2 10/04/19 10:17 Room Air 10/04/19 08:00 97.4 70 17 121/64 (83) 94 10/04/19 03:58 98.4 73 18 101/41 (61) 97 10/04/19 00:00 99.4 75 18 126/78 (94) 97 10/03/19 21:00 Room Air 10/03/19 20:00 98.6 93 22 120/59 (79) 96 10/03/19 16:00 97.8 90 20 123/57 (79) 99 Height (Feet): 5 Height (Inches): 3.00 Weight (Pounds): 127 General Appearance: no acute distress HEENT: normocephalic, atraumatic, anicteric, mucous membranes moist Respiratory/Chest: lungs clear, normal breath sounds, no respiratory distress, no accessory muscle use Cardiovascular: normal rate, regular rhythm, no gallop/murmur, no JVD Abdomen: normal bowel sounds, soft, non tender, no organomegaly, non distended Genitourinary: other - no arnold Extremities: other - left foot wound stable to my exam Skin: no rash Neurologic/Psychiatric: rubber press tender II-XII grossly normal, 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 Pleural space: Unremarkable. No pneumothorax. Heart: Borderline cardiomegaly, potentially exaggerated by portable technique. Mediastinum: Calcified aorta. Bones/joints: Osteopenia. Degenerative changes. IMPRESSION: Mild vascular congestion CT abdomen: Impression: Anasarca, as described, with generalized edema of subcutaneous abdominal fat, moderate-sized bilateral pleural effusions, pulmonary interstitial and airspace edema Compressive atelectasis of the lower lobes due to the pleural fluid Evidence of rectal fecal impaction and possible stercoral proctitis Pessary, likely malpositioned, as described. There is evidence of bladder floor relaxation despite the pessary Dilated extrahepatic bile ducts. Most likely related to patient's age as no downstream obstructive lesion is demonstrated. However, correlation with liver function tests is recommended, with consideration for MRCP if clinically indicated Questionable slight retrococcygeal decubitus changes. Correlate with findings Other findings as noted, including evidence of prior renal cortical scarring, Arnold catheter, uterine arcuate artery calcifications Chest x-ray - 09/05/19 - Indication: Cough Technique: One view of the chest Comparison: 08/24/2019 Findings: There is increased interstitial edema. There is evidence of left perihilar airspace disease There is suggestion of trace bilateral pleural effusions. The heart size is upper limits normal. Impression: Increased interstitial edema, since prior exam 08/24/2019 Suspect left perihilar consolidation Small bilateral pleural effusions Chest x-ray - 09/07/19 - IMPRESSION: 1. Interval mild improvement in the diffusely increased interstitial markings compared to the prior exam, suggesting improved pulmonary interstitial edema. 2. Linear atelectasis at the periphery of the left mid lung. 3. Possible small left pleural effusion. MRI left foot: IMPRESSION: Evidence of acute osteomyelitis involving the hallux as described above. Cellulitis. Microbiology Date/Time Source Procedure Growth Status 09/03/19 21:00 Blood Blood Culture - Final NO GROWTH AFTER 5 DAYS Complete 09/12/19 14:45 Indwelling Cath Urine Culture - Final Nehal Albicans Complete 09/07/19 13:12 Foot Left Gram Stain - Final Complete 09/07/19 13:12 Wound Culture - Final Usual Skin Maximino Complete Laboratory Tests Test 10/04/19 05:10 White Blood Count 7.5 K/UL (4.8-10.8) Red Blood Count 3.33 M/UL (4.20-5.40) L Hemoglobin 9.6 G/DL (12.0-16.0) L Hematocrit 28.9 % (37.0-47.0) L Mean Corpuscular Volume 87 FL (80-99) Mean Corpuscular Hemoglobin 28.8 PG (27.0-31.0) Mean Corpuscular Hemoglobin Concent 33.1 G/DL (32.0-36.0) Red Cell Distribution Width 16.8 % (11.6-14.8) H Platelet Count 317 K/UL (150-450) Mean Platelet Volume 6.3 FL (6.5-10.1) L Neutrophils (%) (Auto) 62.2 % (45.0-75.0) Lymphocytes (%) (Auto) 20.7 % (20.0-45.0) Monocytes (%) (Auto) 13.9 % (1.0-10.0) H Eosinophils (%) (Auto) 2.0 % (0.0-3.0) Basophils (%) (Auto) 1.2 % (0.0-2.0) Sodium Level 136 MMOL/L (136-145) Potassium Level 3.5 MMOL/L (3.5-5.1) Chloride Level 103 MMOL/L (98-107) Carbon Dioxide Level 24 MMOL/L (21-32) Anion Gap 9 mmol/L (5-15) Blood Urea Nitrogen 11 mg/dL (7-18) Creatinine 0.9 MG/DL (0.55-1.30) Estimat Glomerular Filtration Rate 59.4 mL/min (>60) Glucose Level 164 MG/DL (74-106) H Calcium Level 8.0 MG/DL (8.5-10.1) L Total Bilirubin 0.4 MG/DL (0.2-1.0) Aspartate Amino Transf (AST/SGOT) 14 U/L (15-37) L Alanine Aminotransferase (ALT/SGPT) 8 U/L (12-78) L Alkaline Phosphatase 58 U/L (46-116) Total Protein 6.5 G/DL (6.4-8.2) Albumin 1.4 G/DL (3.4-5.0) L Globulin 5.1 g/dL Albumin/Globulin Ratio 0.3 (1.0-2.7) L Current Medications Medications (Trade) Dose Ordered Sig/Krystin Route PRN Reason Start Time Stop Time Status Last Admin Dose Admin Acetaminophen (Tylenol) 650 mg Q6H PRN ORAL Mild Pain/Temp > 100.5 09/27/19 18:19 10/27/19 18:18 10/03/19 17:50 Cefepime HCl 2 gm/ Sodium Chloride 110 ml @ 220 mls/hr Q24H IVPB 09/16/19 21:00 10/04/19 23:59 10/03/19 20:26 Collagenase (Santyl) 1 applic DAILY TOPIC 09/12/19 09:00 10/06/19 16:59 10/03/19 08:08 Dextrose 1,000 ml @ 50 mls/hr Q20H IV 09/26/19 00:30 10/26/19 00:29 10/04/19 09:03 Dextrose (Dextrose 50%) 25 ml Q30M PRN IV Hypoglycemia 09/30/19 07:00 10/30/19 06:59 Dextrose (Dextrose 50%) 50 ml Q30M PRN IV Hypoglycemia 09/30/19 07:00 10/30/19 06:59 Insulin Aspart (NovoLOG) BEFORE MEALS AND HS SUBQ 09/30/19 11:30 10/30/19 11:29 10/04/19 12:19 Metronidazole (Flagyl) 500 mg Q8H ORAL 09/13/19 01:00 10/04/19 23:59 10/04/19 09:06 Vancomycin HCl (Vanco rx to dose) 1 ea DAILY PRN MISC Per rx protocol 09/12/19 08:45 10/12/19 08:44 Vancomycin HCl 750 mg/Sodium Chloride 275 ml @ 183.333 mls/hr Q24H IVPB 09/20/19 05:00 10/04/19 23:59 10/04/19 05:24 Gerardo Toledo MD Oct 04, 2019 15:24
[2019-10-04 16:00] VITALS: BP 118/72
--- NOTE | 2019-10-04 16:00 | NUR ---
NURSE NOTES: Vi speech therapist called and stated that patient family will be coming in to sign consent for procedure schedule for 10/07/19 .
--- NOTE | 2019-10-04 17:30 | NUR ---
NURSE NOTES: Patient had a small brown BM,skin care given,turned and position,sacral wound care changed as ordered.Bed alarm on,will endorsre to oncoming Nurse continue with fall risk assessment.Assist patient with meals.
--- NOTE | 2019-10-04 19:22 | Cardiac Electrophysiology PN ---
Assessment/Plan Assessment/Plan 1. NSTEMI type 2 due to renal failure with creatinine 1.7. Troponins low level and flat. No CP. ECG LBBB Nl EF and no vegetations. On aspirin. Off statin for rhabdomyolysis. Off beta lisbeth for bradycardia 2. Hypertension. On Norvasc 5 daily 3. LBBB and sinus dorian in 30s. Resolved. Off tele 4. Nonsustained VT.Nl EF 5. Acute on chronic diastolic CHF. Echo Nl EF. 6. Urinary tract infection, on IV antibiotic. 7. 4/4 Strep Bacteremia with WBC 25K. Down to 8.8 K on Abx No endocarditis. ERIBERTO on 09/10/19 no vegetation. 8. S/P Renal failure. Resolved 9. Uncontrolled diabetes 10. Left toe ulcer. On Abx per ID and podiatry 11. Malnutrition. May need PEG DW RN Subjective Subjective Comfortable in NAD.No events. On iv abx Objective Last 24 Hour Vital Signs Date Time Temp Pulse Resp B/P (MAP) Pulse Ox O2 Delivery O2 Flow Rate FiO2 10/04/19 16:00 98.1 83 17 118/72 (87) 95 83 10/04/19 10:17 Room Air 10/04/19 08:00 97.4 70 17 121/64 (83) 94 10/04/19 03:58 98.4 73 18 101/41 (61) 97 10/04/19 00:00 99.4 75 18 126/78 (94) 97 10/03/19 21:00 Room Air 10/03/19 20:00 98.6 93 22 120/59 (79) 96 Intake and Output 10/03/19 10/04/19 19:00 07:00 Intake Total 860 ml 733.3 ml Output Total 500 ml 700 ml Balance 360 ml 33.3 ml Intake Oral 360 ml IV Total 500 ml 733.3 ml Output Urine Total 500 ml 700 ml # Bowel Movements 2 Laboratory Tests Test 10/04/19 05:10 White Blood Count 7.5 K/UL (4.8-10.8) Red Blood Count 3.33 M/UL (4.20-5.40) L Hemoglobin 9.6 G/DL (12.0-16.0) L Hematocrit 28.9 % (37.0-47.0) L Mean Corpuscular Volume 87 FL (80-99) Mean Corpuscular Hemoglobin 28.8 PG (27.0-31.0) Mean Corpuscular Hemoglobin Concent 33.1 G/DL (32.0-36.0) Red Cell Distribution Width 16.8 % (11.6-14.8) H Platelet Count 317 K/UL (150-450) Mean Platelet Volume 6.3 FL (6.5-10.1) L Neutrophils (%) (Auto) 62.2 % (45.0-75.0) Lymphocytes (%) (Auto) 20.7 % (20.0-45.0) Monocytes (%) (Auto) 13.9 % (1.0-10.0) H Eosinophils (%) (Auto) 2.0 % (0.0-3.0) Basophils (%) (Auto) 1.2 % (0.0-2.0) Sodium Level 136 MMOL/L (136-145) Potassium Level 3.5 MMOL/L (3.5-5.1) Chloride Level 103 MMOL/L (98-107) Carbon Dioxide Level 24 MMOL/L (21-32) Anion Gap 9 mmol/L (5-15) Blood Urea Nitrogen 11 mg/dL (7-18) Creatinine 0.9 MG/DL (0.55-1.30) Estimat Glomerular Filtration Rate 59.4 mL/min (>60) Glucose Level 164 MG/DL (74-106) H Calcium Level 8.0 MG/DL (8.5-10.1) L Total Bilirubin 0.4 MG/DL (0.2-1.0) Aspartate Amino Transf (AST/SGOT) 14 U/L (15-37) L Alanine Aminotransferase (ALT/SGPT) 8 U/L (12-78) L Alkaline Phosphatase 58 U/L (46-116) Total Protein 6.5 G/DL (6.4-8.2) Albumin 1.4 G/DL (3.4-5.0) L Globulin 5.1 g/dL Albumin/Globulin Ratio 0.3 (1.0-2.7) L Objective HEAD AND NECK: No JVD LUNGS: Clear. CARDIOVASCULAR: Regular S1 and S2 with no gallop or murmur. ABDOMEN: Soft. EXTREMITIES: Left toe ulcer covered with dressing Luis Purdy MD Oct 04, 2019 19:22
[2019-10-04 20:00] VITALS: BP 113/54
--- NOTE | 2019-10-04 20:09 | NUR ---
HAND-OFF: Report given to Frederick,ENDORSE CONTINUE WITH FALL rISK.
--- NOTE | 2019-10-04 20:15 | NUR ---
NURSE NOTES: Patient is in bed and asleep at this time. On room air with no signs of distress or SOB. IV intact and patent. Bed locked and in lowest position. HOB elevated. Bed alarm activated. Will continue to monitor the patient.
[2019-10-04] MEDS: Cefepime HCl 2 GM in NS 110 ML IVPB SCH (20:46)
[2019-10-05] VITALS (7 sets, daily range): BP systolic 108–120; BP diastolic 49–74
[2019-10-05] MEDS: NovoLOG Insulin Flexpen SUBQ SCH ×4 (06:24→20:55)
--- NOTE | 2019-10-05 07:30 | NUR ---
NURSE NOTES: Received report from ISHAAN Mackey. Patient in bed, sleeping. On room air, no signs of distress or labored breathing. IV intact, patent, and infusing IV fluids. Buckner intact, patent, and draining urine. Bed in lowest position with side rails x3. Will continue with plan of care.
--- NOTE | 2019-10-05 07:43 | NUR ---
HAND-OFF: Report given to ISHAAN Harris.
[2019-10-05] MEDS ORDERED: D5NS 1000ml IV ONE (13:16)
--- NOTE | 2019-10-05 13:39 | Cardiac Electrophysiology PN ---
Assessment/Plan Assessment/Plan 1. NSTEMI type 2 due to renal failure with creatinine 1.7. Troponins low and flat. No CP. ECG LBBB Nl EF and no vegetations. On aspirin. Off statin for rhabdomyolysis. Off beta lisbeth for bradycardia 2. Hypertension. On Norvasc 5 daily 3. LBBB and sinus dorian in 30s. Resolved. Off tele 4. Nonsustained VT.Nl EF 5. Acute on chronic diastolic CHF. Echo Nl EF. 6. Urinary tract infection, on IV antibiotic. 7. 4/4 Strep Bacteremia with WBC 25K. Down to 8.8 K on Abx No endocarditis. ERIBERTO on 09/10/19 no vegetation. 8. S/P Renal failure. Resolved 9. Uncontrolled diabetes 10. Left toe ulcer. On Abx per ID and podiatry 11. Malnutrition. PEG on Monday pending consent CLEM RN Subjective Subjective Comfortable in NAD.No events. On iv abx . Scheduled for PEG on Monday by Dr. Phoenix pending consent Objective Last 24 Hour Vital Signs Date Time Temp Pulse Resp B/P (MAP) Pulse Ox O2 Delivery O2 Flow Rate FiO2 10/05/19 09:00 Room Air 10/05/19 08:00 99.2 78 17 117/59 (78) 97 10/05/19 04:28 Room Air 10/05/19 04:00 99.0 83 18 120/49 (72) 97 10/05/19 00:00 99.7 76 18 110/54 (72) 98 10/04/19 21:00 Room Air 10/04/19 20:00 99.7 78 18 113/54 (73) 100 10/04/19 16:00 98.1 83 17 118/72 (87) 95 83 Intake and Output 10/04/19 10/05/19 19:00 07:00 Intake Total 1260 ml Output Total 1400 ml Balance 1260 ml -1400 ml IV Total 500 ml Other 760 ml Output Urine Total 1400 ml # Bowel Movements 1 Objective HEAD AND NECK: No JVD LUNGS: Clear. CARDIOVASCULAR: Regular S1 and S2 with no gallop or murmur. ABDOMEN: Soft. EXTREMITIES: Left toe ulcer covered with dressing Luis Purdy MD Oct 05, 2019 13:39
--- NOTE | 2019-10-05 16:04 | General Progress Note ---
Assessment/Plan Status: stable Assessment/Plan: Assessment/Plan Problem List: (1) Anemia ICD Codes: D64.9 - Anemia, unspecified SNOMED: 597667779 (2) PAD (peripheral artery disease) ICD Codes: I73.9 - Peripheral vascular disease, unspecified SNOMED: 373732355 (3) Urinary tract infection due to ESBL Klebsiella ICD Codes: N39.0 - Urinary tract infection, site not specified; B96.89 - Other specified bacterial agents as the cause of diseases classified elsewhere SNOMED: 806426219, 390331560258551 (4) Diabetes mellitus with hyperglycemia ICD Codes: E11.65 - Type 2 diabetes mellitus with hyperglycemia SNOMED: 64708237, 74459433 (5) Decubitus skin ulcer ICD Codes: L89.90 - Pressure ulcer of unspecified site, unspecified stage SNOMED: 243605294 (6) HTN (hypertension) ICD Codes: I10 - HTN (hypertension) SNOMED: 46658706 (7) FTT (failure to thrive) in adult ICD Codes: R62.7 - Adult failure to thrive SNOMED: 369429579 Status: stable Assessment/Plan: abx wound care fu labs plan PEG for Monday Subjective Allergies: Coded Allergies: No Known Allergies (Unverified , 10/23/13) Subjective minimally interactive poor po Objective Last 24 Hour Vital Signs Date Time Temp Pulse Resp B/P (MAP) Pulse Ox O2 Delivery O2 Flow Rate FiO2 10/05/19 12:00 98.5 78 17 108/56 (73) 96 10/05/19 09:00 Room Air 10/05/19 08:00 99.2 78 17 117/59 (78) 97 10/05/19 04:28 Room Air 10/05/19 04:00 99.0 83 18 120/49 (72) 97 10/05/19 00:00 99.7 76 18 110/54 (72) 98 10/04/19 21:00 Room Air 10/04/19 20:00 99.7 78 18 113/54 (73) 100 Intake and Output 10/04/19 10/05/19 19:00 07:00 Intake Total 1260 ml Output Total 1400 ml Balance 1260 ml -1400 ml IV Total 500 ml Other 760 ml Output Urine Total 1400 ml # Bowel Movements 1 Height (Feet): 5 Height (Inches): 3.00 Weight (Pounds): 127 Objective OBS NCAT supple CTA RR abd soft no edema Jesica Romero MD Oct 05, 2019 16:04
--- NOTE | 2019-10-05 19:06 | NUR ---
HAND-OFF: Report given to ISHAAN Mackey.
--- NOTE | 2019-10-05 19:50 | NUR ---
NURSE NOTES: Patient is in bed, awake, unable to make needs known. On room air with no signs of distress or SOB. IV intact and patent. Bed locked and in lowest position. HOB elevated. Bed alarm activated. Will continue to monitor the patient.
--- NOTE | 2019-10-05 19:51 | General Progress Note ---
Assessment/Plan Problem List: (1) Bacteremia due to group B Streptococcus ICD Codes: R78.81 - Bacteremia SNOMED: 212934857851 (2) Severe sepsis ICD Codes: A41.9 - Sepsis, unspecified organism; R65.20 - Severe sepsis without septic shock SNOMED: 76119698 (3) Toxic metabolic encephalopathy ICD Codes: G92 - Toxic encephalopathy SNOMED: 537894004 (4) Diabetes mellitus with hyperglycemia ICD Codes: E11.65 - Type 2 diabetes mellitus with hyperglycemia SNOMED: 04164673, 66463886 (5) OWEN (acute kidney injury) ICD Codes: N17.9 - Acute kidney failure, unspecified SNOMED: 5792276, 03611213 (6) NSTEMI (non-ST elevated myocardial infarction) ICD Codes: I21.4 - Non-ST elevation (NSTEMI) myocardial infarction SNOMED: 35948653, 195744479 (7) Urinary tract infection due to ESBL Klebsiella ICD Codes: N39.0 - Urinary tract infection, site not specified; B96.89 - Other specified bacterial agents as the cause of diseases classified elsewhere SNOMED: 416336424, 710386390358495 (8) Suspected acute on chronic CHF (9) Decubitus skin ulcer ICD Codes: L89.90 - Pressure ulcer of unspecified site, unspecified stage SNOMED: 236623964 (10) ATN (acute tubular necrosis) ICD Codes: N17.0 - Acute kidney failure with tubular necrosis SNOMED: 31066006 (11) Parkinson disease ICD Codes: G20 - Parkinson disease SNOMED: 25929559 (12) Bedbug bite ICD Codes: W57.XXXA - Bitten or stung by nonvenomous insect and other nonvenomous arthropods, initial encounter SNOMED: 307599394 (13) Hypernatremia ICD Codes: E87.0 - Hyperosmolality and hypernatremia SNOMED: 844801573 (14) Hypokalemia ICD Codes: E87.6 - Hypokalemia SNOMED: 89063455 (15) PAD (peripheral artery disease) ICD Codes: I73.9 - Peripheral vascular disease, unspecified SNOMED: 570932628 Status: stable Assessment/Plan: 84-year-old lady from [facility] with history of hypertension, uncontrolled diabetes, and Parkinson disease, who was brought to the emergency room by family member for altered mental status and weakness. #Osteomyelitis left foot/ 1st toe #Severe PVD #Severe sepsis #Group B strep, ESBL UTI and bacteremia - s/p 42 days of vancomycin, cefepime, flagyl - ERIBERTO negative for vegetation. surveillance cultures are negative - wound culture right foot with normal maximino but likely polymicrobial infection - monitor labs, recent chest x-ray negative - s/p diflucan (for fungal uti) - ID following -General surgery consult appreciated - Podiatry consult appreciated #Poor oral intake - calorie count reviewed with RD - GI consult for PEG #Anemia, rule out acute blood loss. rule out GI bleed - improved - stool OB negative - appreciate Heme/onc recs - s/p 1 unit PRBC 09/27/19. Consent obtained from family - trend CBC #Hypokalemia #Hypernatremia resolved #Hypophosphatemia Replace as needed Continue to monitor #Uncontrolled DM II - A1c 9-->insulin sliding scale ac/hs, resistant scale, fsbg controlled #Parkinson's disease #Dementia - c/w PD regimen - supportive care - delirium precautions #NSTEMI type II 2/2 renal failure #HFpEF #HTN #Sinus dorian - resolved -d/c heparin gtt/acs protocol per cards, pt w/no chest pain, stable troponin. -Continue ASA -Cont. to hold statin due to rhabdomyolysis. -Decreased Lopressor from 25 mg to 12.5 mg bid due to low heart rate, then d/c on 08/29 for bradycardia, now resolved off Lopressor - s/p lasix 40 mg BID -Echocardiogram Nl EF -continue amlodipine 5 daily - cardiology consult appreciated #OWEN due to ATN - resolved avoid nephrotoxin medications #stage II sacral decubitus ulcer Appreciate wound consult Wound care Buckner in place for healing of wound Pain regimen DVT ppx: HSQ Code status: Full -goals of care have been discussed with family at bedside 09/15/2019 Time of this note may not reflect the time of the clinical encounter. Subjective Date patient seen: Oct 05, 2019 ROS Limited/Unobtainable: Yes Allergies: Coded Allergies: No Known Allergies (Unverified , 10/23/13) Subjective poor historian. following up for severe sepsis, streptococcus agalactiae - group b bacteremia, endocarditis ruled out by ERIBERTO , esbl e.coli uti, sirs, leukocytosis, ? hcap/aspiration vs pulmonary edema, left foot great toe/1st toe wound infection - MRI c/w osteomyelitis. no acute events Objective Last 24 Hour Vital Signs Date Time Temp Pulse Resp B/P (MAP) Pulse Ox O2 Delivery O2 Flow Rate FiO2 10/05/19 16:00 98.3 82 17 112/60 (77) 98 10/05/19 12:00 98.5 78 17 108/56 (73) 96 10/05/19 09:00 Room Air 10/05/19 08:00 99.2 78 17 117/59 (78) 97 10/05/19 04:28 Room Air 10/05/19 04:00 99.0 83 18 120/49 (72) 97 10/05/19 00:00 99.7 76 18 110/54 (72) 98 10/04/19 21:00 Room Air 10/04/19 20:00 99.7 78 18 113/54 (73) 100 Intake and Output 10/04/19 10/05/19 19:00 07:00 Intake Total 1260 ml Output Total 1400 ml Balance 1260 ml -1400 ml IV Total 500 ml Other 760 ml Output Urine Total 1400 ml # Bowel Movements 1 Height (Feet): 5 Height (Inches): 3.00 Weight (Pounds): 127 Objective General Appearance: WD/WN, no apparent distress, awake, confused HEENT: normocephalic, atraumatic, PERRL, EOMI, supple, no JVD Neck: non-tender, normal alignment, supple Respiratory/Chest: chest wall non-tender, lungs clear, normal breath sounds, no respiratory distress, no accessory muscle use Cardiovascular/Chest: normal peripheral pulses, normal rate, regular rhythm, no gallop/murmur, no JVD Abdomen: non tender, soft, no organomegaly Extremities: no edema, no cyanosis Neurologic: disoriented Skin: +debuts, + left foot/1st toe ulcer/Eschar. Chago Lyons M.D. Oct 05, 2019 19:51
[2019-10-06 04:00] VITALS: BP 105/45
[2019-10-06] MEDS: NovoLOG Insulin Flexpen SUBQ SCH ×4 (05:54→21:00)
--- NOTE | 2019-10-06 07:15 | NUR ---
NURSE NOTES: Received report from ISHAAN Mackey. Patient in bed, sleeping. On room air, no signs of distress or labored breathing. IV intact, patent, and infusing IV fluids. Buckner, intact, patent, and draining urine. Bed in lowest position with side rails up x3. Will continue with plan of care.
--- NOTE | 2019-10-06 07:23 | NUR ---
HAND-OFF: Report given to ISHAAN Harris.
--- NOTE | 2019-10-06 07:36 | General Progress Note ---
Assessment/Plan Status: stable Assessment/Plan: Assessment/Plan Problem List: (1) Anemia ICD Codes: D64.9 - Anemia, unspecified SNOMED: 795301929 (2) PAD (peripheral artery disease) ICD Codes: I73.9 - Peripheral vascular disease, unspecified SNOMED: 190981354 (3) Urinary tract infection due to ESBL Klebsiella ICD Codes: N39.0 - Urinary tract infection, site not specified; B96.89 - Other specified bacterial agents as the cause of diseases classified elsewhere SNOMED: 766255820, 217777028502895 (4) Diabetes mellitus with hyperglycemia ICD Codes: E11.65 - Type 2 diabetes mellitus with hyperglycemia SNOMED: 60670742, 82263560 (5) Decubitus skin ulcer ICD Codes: L89.90 - Pressure ulcer of unspecified site, unspecified stage SNOMED: 430686353 (6) HTN (hypertension) ICD Codes: I10 - HTN (hypertension) SNOMED: 60482813 (7) FTT (failure to thrive) in adult ICD Codes: R62.7 - Adult failure to thrive SNOMED: 235279238 Status: stable Assessment/Plan: abx wound care fu labs plan PEG for Monday Subjective Allergies: Coded Allergies: No Known Allergies (Unverified , 10/23/13) Subjective minimally interactive poor po Objective Last 24 Hour Vital Signs Date Time Temp Pulse Resp B/P (MAP) Pulse Ox O2 Delivery O2 Flow Rate FiO2 10/06/19 04:00 99.8 83 22 105/45 (65) 96 10/05/19 23:59 99.0 80 22 120/74 (89) 95 10/05/19 20:01 Room Air 10/05/19 19:59 99.8 87 22 115/63 (80) 96 10/05/19 16:00 98.3 82 17 112/60 (77) 98 10/05/19 12:00 98.5 78 17 108/56 (73) 96 10/05/19 09:00 Room Air 10/05/19 08:00 99.2 78 17 117/59 (78) 97 Intake and Output 10/05/19 10/06/19 19:00 07:00 Intake Total 180 ml Output Total 460 ml 150 ml Balance -280 ml -150 ml Intake Oral 180 ml Output Urine Total 460 ml 150 ml # Voids 1 Height (Feet): 5 Height (Inches): 3.00 Weight (Pounds): 127 Objective OBS NCAT supple CTA RR abd soft no edema Jesica Romero MD Oct 06, 2019 07:36
[2019-10-06 08:00] VITALS: BP 108/48
[2019-10-06 12:00] VITALS: BP 126/60
--- NOTE | 2019-10-06 12:07 | Cardiac Electrophysiology PN ---
Assessment/Plan Assessment/Plan 1. NSTEMI type 2 due to renal failure with creatinine 1.7. Troponins low and flat. No CP. ECG LBBB Nl EF and no vegetations. On aspirin. Off statin for rhabdomyolysis. Off beta lisbeth for bradycardia 2. Hypertension. On Norvasc 5 daily 3. LBBB and sinus dorian in 30s. Resolved. Off tele 4. Nonsustained VT.Nl EF 5. Acute on chronic diastolic CHF. Echo Nl EF. 6. Urinary tract infection, on IV antibiotic. 7. 4/4 Strep Bacteremia with WBC 25K. Down to 8.8 K on Abx No endocarditis. ERIBERTO on 09/10/19 no vegetation. 8. S/P Renal failure. Resolved 9. Uncontrolled diabetes 10. Left toe ulcer. On Abx per ID and podiatry 11. Malnutrition. PEG on Monday by Dr Sheri NJ RN Subjective Subjective Comfortable in NAD.No events. Scheduled for PEG on Monday by Dr. Phoenix as consent obtained Objective Last 24 Hour Vital Signs Date Time Temp Pulse Resp B/P (MAP) Pulse Ox O2 Delivery O2 Flow Rate FiO2 10/06/19 09:00 Room Air 10/06/19 08:00 98.8 80 20 108/48 (68) 97 10/06/19 04:00 99.8 83 22 105/45 (65) 96 10/05/19 23:59 99.0 80 22 120/74 (89) 95 10/05/19 20:01 Room Air 10/05/19 19:59 99.8 87 22 115/63 (80) 96 10/05/19 16:00 98.3 82 17 112/60 (77) 98 Intake and Output 10/05/19 10/06/19 19:00 07:00 Intake Total 180 ml 50 ml Output Total 460 ml 150 ml Balance -280 ml -100 ml Intake Oral 180 ml IV Total 50 ml Output Urine Total 460 ml 150 ml # Voids 1 Objective HEAD AND NECK: No JVD LUNGS: Clear. CARDIOVASCULAR: Regular S1 and S2 with no gallop or murmur. ABDOMEN: Soft. EXTREMITIES: Left toe ulcer covered with dressing Luis Purdy MD Oct 06, 2019 12:07
--- NOTE | 2019-10-06 15:13 | Infectious Diseases Prog Note ---
Assessment/Plan Assessment/Plan ASSESSMENT AND PLAN: 1. streptococcus agalactiae - group b bacteremia, ? endocarditis, esbl e.coli uti, sirs, leukocytosis, ? pna on chest x-ray - ? hcap/aspiration vs pulmonary edema, left foot great toe/1st toe wound infection - MRI c/w osteomyelitis, elevated sed rate f/u urine culture with persistent yeast - s/p 6 weeks iv abx - vancomycin, cefepime, flagyl - CRP improved significantly - 20.6 to 8.3, sed rate12 to 96 - ERIBERTO negative for vegetation, s/p tx for bacteremia - wound culture right foot with normal maximino but likely polymicrobial infection - monitor labs, recent chest x-ray negative - surgery note reviewed - left foot improving - s/p diflucan 2. Acute kidney injury with elevated creatinine. 3. History of diabetes. 4. for feeding tube for decreased oral intake 5. Blood pressure treatment per primary care team and diabetes treatment per primary care team and consultants. 6. Parkinson's. 7. Dementia, weakness 8. The patient does have also elevated troponin. Cardiology follow-up. 9. MAR was noted. 10. Case was discussed with RN. 11. No known allergies. 12. Social history is negative. 13. Family history is noncontributory. 14. Continue treatment per primary consultants. 15. Orders were noted and entered. Subjective Constitutional: Reports: fatigue, other - weak, opens eyes ; Denies: fever HEENT: Denies: congestion Respiratory: Denies: shortness of breath Cardiovascular: Denies: chest pain Gastrointestinal/Abdominal: Denies: nausea, vomiting, diarrhea Genitourinary: Reports: other - no arnold Neurologic: Denies: headache Psychiatric: Denies: depression Skin: Reports: other - wounds - covered ; Denies: rash Hematologic: Denies: bleeding Musculoskeletal: Denies: pain Allergies: Coded Allergies: No Known Allergies (Unverified , 10/23/13) Objective Vital Signs Last 24 Hour Vital Signs Date Time Temp Pulse Resp B/P (MAP) Pulse Ox O2 Delivery O2 Flow Rate FiO2 10/06/19 09:00 Room Air 10/06/19 08:00 98.8 80 20 108/48 (68) 97 10/06/19 04:00 99.8 83 22 105/45 (65) 96 10/05/19 23:59 99.0 80 22 120/74 (89) 95 10/05/19 20:01 Room Air 10/05/19 19:59 99.8 87 22 115/63 (80) 96 10/05/19 16:00 98.3 82 17 112/60 (77) 98 Height (Feet): 5 Height (Inches): 3.00 Weight (Pounds): 127 General Appearance: no acute distress HEENT: normocephalic, atraumatic, anicteric Respiratory/Chest: crackles/rales, rhonchi - bilaterally Cardiovascular: normal rate, regular rhythm, no gallop/murmur, no JVD Abdomen: normal bowel sounds, soft, non tender, no organomegaly, non distended Genitourinary: other - + arnold - urine slt cloudy Extremities: other - wounds - covered Skin: no rash 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 Pleural space: Unremarkable. No pneumothorax. Heart: Borderline cardiomegaly, potentially exaggerated by portable technique. Mediastinum: Calcified aorta. Bones/joints: Osteopenia. Degenerative changes. IMPRESSION: Mild vascular congestion CT abdomen: Impression: Anasarca, as described, with generalized edema of subcutaneous abdominal fat, moderate-sized bilateral pleural effusions, pulmonary interstitial and airspace edema Compressive atelectasis of the lower lobes due to the pleural fluid Evidence of rectal fecal impaction and possible stercoral proctitis Pessary, likely malpositioned, as described. There is evidence of bladder floor relaxation despite the pessary Dilated extrahepatic bile ducts. Most likely related to patient's age as no downstream obstructive lesion is demonstrated. However, correlation with liver function tests is recommended, with consideration for MRCP if clinically indicated Questionable slight retrococcygeal decubitus changes. Correlate with findings Other findings as noted, including evidence of prior renal cortical scarring, Arnold catheter, uterine arcuate artery calcifications Chest x-ray - 09/05/19 - Indication: Cough Technique: One view of the chest Comparison: 08/24/2019 Findings: There is increased interstitial edema. There is evidence of left perihilar airspace disease There is suggestion of trace bilateral pleural effusions. The heart size is upper limits normal. Impression: Increased interstitial edema, since prior exam 08/24/2019 Suspect left perihilar consolidation Small bilateral pleural effusions Chest x-ray - 09/07/19 - IMPRESSION: 1. Interval mild improvement in the diffusely increased interstitial markings compared to the prior exam, suggesting improved pulmonary interstitial edema. 2. Linear atelectasis at the periphery of the left mid lung. 3. Possible small left pleural effusion. MRI left foot: IMPRESSION: Evidence of acute osteomyelitis involving the hallux as described above. Cellulitis. Microbiology Date/Time Source Procedure Growth Status 09/03/19 21:00 Blood Blood Culture - Final NO GROWTH AFTER 5 DAYS Complete 09/12/19 14:45 Indwelling Cath Urine Culture - Final Nehal Albicans Complete 09/07/19 13:12 Foot Left Gram Stain - Final Complete 09/07/19 13:12 Wound Culture - Final Usual Skin Maximino Complete Labs Test 10/04/19 05:10 White Blood Count 7.5 K/UL (4.8-10.8) Red Blood Count 3.33 M/UL (4.20-5.40) Hemoglobin 9.6 G/DL (12.0-16.0) Hematocrit 28.9 % (37.0-47.0) Mean Corpuscular Volume 87 FL (80-99) Mean Corpuscular Hemoglobin 28.8 PG (27.0-31.0) Mean Corpuscular Hemoglobin Concent 33.1 G/DL (32.0-36.0) Red Cell Distribution Width 16.8 % (11.6-14.8) Platelet Count 317 K/UL (150-450) Mean Platelet Volume 6.3 FL (6.5-10.1) Neutrophils (%) (Auto) 62.2 % (45.0-75.0) Lymphocytes (%) (Auto) 20.7 % (20.0-45.0) Monocytes (%) (Auto) 13.9 % (1.0-10.0) Eosinophils (%) (Auto) 2.0 % (0.0-3.0) Basophils (%) (Auto) 1.2 % (0.0-2.0) Sodium Level 136 MMOL/L (136-145) Potassium Level 3.5 MMOL/L (3.5-5.1) Chloride Level 103 MMOL/L (98-107) Carbon Dioxide Level 24 MMOL/L (21-32) Anion Gap 9 mmol/L (5-15) Blood Urea Nitrogen 11 mg/dL (7-18) Creatinine 0.9 MG/DL (0.55-1.30) Estimat Glomerular Filtration Rate 59.4 mL/min (>60) Glucose Level 164 MG/DL (74-106) Calcium Level 8.0 MG/DL (8.5-10.1) Total Bilirubin 0.4 MG/DL (0.2-1.0) Aspartate Amino Transf (AST/SGOT) 14 U/L (15-37) Alanine Aminotransferase (ALT/SGPT) 8 U/L (12-78) Alkaline Phosphatase 58 U/L (46-116) Total Protein 6.5 G/DL (6.4-8.2) Albumin 1.4 G/DL (3.4-5.0) Globulin 5.1 g/dL Albumin/Globulin Ratio 0.3 (1.0-2.7) Current Medications Medications (Trade) Dose Ordered Sig/Krystin Route PRN Reason Start Time Stop Time Status Last Admin Dose Admin Acetaminophen (Tylenol) 650 mg Q6H PRN ORAL Mild Pain/Temp > 100.5 09/27/19 18:19 10/27/19 18:18 10/03/19 17:50 Collagenase (Santyl) 1 applic DAILY TOPIC 09/12/19 09:00 10/06/19 16:59 10/06/19 09:46 Dextrose 1,000 ml @ 50 mls/hr Q20H IV 09/26/19 00:30 10/26/19 00:29 10/06/19 00:52 Dextrose (Dextrose 50%) 25 ml Q30M PRN IV Hypoglycemia 09/30/19 07:00 10/30/19 06:59 Dextrose (Dextrose 50%) 50 ml Q30M PRN IV Hypoglycemia 09/30/19 07:00 10/30/19 06:59 Insulin Aspart (NovoLOG) BEFORE MEALS AND HS SUBQ 09/30/19 11:30 10/30/19 11:29 10/06/19 13:03 Vancomycin HCl (Vanco rx to dose) 1 ea DAILY PRN MISC Per rx protocol 09/12/19 08:45 10/12/19 08:44 Gerardo Toledo MD Oct 06, 2019 15:13
[2019-10-06 16:00] VITALS: BP 110/52
--- NOTE | 2019-10-06 18:08 | General Progress Note ---
Assessment/Plan Problem List: (1) Bacteremia due to group B Streptococcus ICD Codes: R78.81 - Bacteremia SNOMED: 518210563529 (2) Severe sepsis ICD Codes: A41.9 - Sepsis, unspecified organism; R65.20 - Severe sepsis without septic shock SNOMED: 88966564 (3) Toxic metabolic encephalopathy ICD Codes: G92 - Toxic encephalopathy SNOMED: 825045407 (4) Diabetes mellitus with hyperglycemia ICD Codes: E11.65 - Type 2 diabetes mellitus with hyperglycemia SNOMED: 14582877, 80622190 (5) OWEN (acute kidney injury) ICD Codes: N17.9 - Acute kidney failure, unspecified SNOMED: 1317239, 40084320 (6) NSTEMI (non-ST elevated myocardial infarction) ICD Codes: I21.4 - Non-ST elevation (NSTEMI) myocardial infarction SNOMED: 75677309, 779825136 (7) Urinary tract infection due to ESBL Klebsiella ICD Codes: N39.0 - Urinary tract infection, site not specified; B96.89 - Other specified bacterial agents as the cause of diseases classified elsewhere SNOMED: 206683885, 307561729022401 (8) Suspected acute on chronic CHF (9) Decubitus skin ulcer ICD Codes: L89.90 - Pressure ulcer of unspecified site, unspecified stage SNOMED: 776540608 (10) ATN (acute tubular necrosis) ICD Codes: N17.0 - Acute kidney failure with tubular necrosis SNOMED: 70647548 (11) Parkinson disease ICD Codes: G20 - Parkinson disease SNOMED: 50053875 (12) Bedbug bite ICD Codes: W57.XXXA - Bitten or stung by nonvenomous insect and other nonvenomous arthropods, initial encounter SNOMED: 419656666 (13) Hypernatremia ICD Codes: E87.0 - Hyperosmolality and hypernatremia SNOMED: 710075195 (14) Hypokalemia ICD Codes: E87.6 - Hypokalemia SNOMED: 78025467 (15) PAD (peripheral artery disease) ICD Codes: I73.9 - Peripheral vascular disease, unspecified SNOMED: 555641331 Status: stable Assessment/Plan: 84-year-old lady from [facility] with history of hypertension, uncontrolled diabetes, and Parkinson disease, who was brought to the emergency room by family member for altered mental status and weakness. #Osteomyelitis left foot/ 1st toe #Severe PVD #Severe sepsis #Group B strep, ESBL UTI and bacteremia - s/p 42 days of vancomycin, cefepime, flagyl - ERIBERTO negative for vegetation. surveillance cultures are negative - wound culture right foot with normal maximino but likely polymicrobial infection - monitor labs, recent chest x-ray negative - s/p diflucan (for fungal uti) - ID following -General surgery consult appreciated - Podiatry consult appreciated #Poor oral intake - calorie count reviewed with RD - GI consult for PEG #Anemia, rule out acute blood loss. rule out GI bleed - improved - stool OB negative - appreciate Heme/onc recs - s/p 1 unit PRBC 09/27/19. Consent obtained from family - trend CBC #Hypokalemia #Hypernatremia resolved #Hypophosphatemia Replace as needed Continue to monitor #Uncontrolled DM II - A1c 9-->insulin sliding scale ac/hs, resistant scale, fsbg controlled #Parkinson's disease #Dementia - c/w PD regimen - supportive care - delirium precautions #NSTEMI type II 2/2 renal failure #HFpEF #HTN #Sinus dorian - resolved -d/c heparin gtt/acs protocol per cards, pt w/no chest pain, stable troponin. -Continue ASA -Cont. to hold statin due to rhabdomyolysis. -Decreased Lopressor from 25 mg to 12.5 mg bid due to low heart rate, then d/c on 08/29 for bradycardia, now resolved off Lopressor - s/p lasix 40 mg BID -Echocardiogram Nl EF -continue amlodipine 5 daily - cardiology consult appreciated #OWEN due to ATN - resolved avoid nephrotoxin medications #stage II sacral decubitus ulcer Appreciate wound consult Wound care Buckner in place for healing of wound Pain regimen #Protein calorie malnutrition peg placement on Monday by Dr. Phoenix DVT ppx: HSQ Code status: Full code -goals of care have been discussed with family at bedside 09/15/2019 Time of this note may not reflect the time of the clinical encounter. Subjective Date patient seen: Oct 06, 2019 Allergies: Coded Allergies: No Known Allergies (Unverified , 10/23/13) Subjective poor historian. following up for severe sepsis, streptococcus agalactiae - group b bacteremia, endocarditis ruled out by ERIBERTO , esbl e.coli uti, sirs, leukocytosis, ? hcap/aspiration vs pulmonary edema, left foot great toe/1st toe wound infection - MRI c/w osteomyelitis. no acute events. NPO past midnight for peg on Monday Objective Last 24 Hour Vital Signs Date Time Temp Pulse Resp B/P (MAP) Pulse Ox O2 Delivery O2 Flow Rate FiO2 10/06/19 16:00 98.6 85 19 110/52 (71) 98 10/06/19 12:00 98.3 82 16 126/60 (82) 99 10/06/19 09:00 Room Air 10/06/19 08:00 98.8 80 20 108/48 (68) 97 10/06/19 04:00 99.8 83 22 105/45 (65) 96 10/05/19 23:59 99.0 80 22 120/74 (89) 95 10/05/19 20:01 Room Air 10/05/19 19:59 99.8 87 22 115/63 (80) 96 Intake and Output 10/05/19 10/06/19 19:00 07:00 Intake Total 180 ml 50 ml Output Total 460 ml 150 ml Balance -280 ml -100 ml Intake Oral 180 ml IV Total 50 ml Output Urine Total 460 ml 150 ml # Voids 1 Height (Feet): 5 Height (Inches): 3.00 Weight (Pounds): 127 Objective General Appearance: WD/WN, no apparent distress, awake, confused HEENT: normocephalic, atraumatic, PERRL, EOMI, supple, no JVD Neck: non-tender, normal alignment, supple Respiratory/Chest: chest wall non-tender, lungs clear, normal breath sounds, no respiratory distress, no accessory muscle use Cardiovascular/Chest: normal peripheral pulses, normal rate, regular rhythm, no gallop/murmur, no JVD Abdomen: non tender, soft, no organomegaly Extremities: no edema, no cyanosis Neurologic: disoriented Skin: +debuts, + left foot/1st toe ulcer/Eschar. Chaog Lyons M.D. Oct 06, 2019 18:07
--- NOTE | 2019-10-06 18:58 | NUR ---
HAND-OFF: Report given to ISHAAN Mackey.
--- NOTE | 2019-10-06 19:23 | NUR ---
NURSE NOTES: Patient is in bed, sleeping. On room air with no signs of distress or SOB. IV intact and running IVF as ordered. Buckner intact and draining well. Bed locked and in lowest position. HOB elevated. Bed alarm on. Will continue with plan of care.
[2019-10-06 20:00] VITALS: BP 102/49
[2019-10-07] VITALS (12 sets, daily range): BP systolic 120–134; BP diastolic 52–83
[2019-10-07] MEDS: NovoLOG Insulin Flexpen SUBQ SCH ×4 (05:52→21:58)
--- NOTE | 2019-10-07 07:20 | NUR ---
NURSE NOTES: Handoff received from ISHAAN Mackey. Patient received awake and resting in bed, patient is non-verbal but makes eye contact when speaking to her, patient is NPO for procedure to place PEG today. Patient has call light within reach and the bed is in the low and locked position, patient is also receiving prescribed fluids through Right AC IV. Patient is bedbound, aspiration and seizure precaution, HOB elevated to semi fowlers position. will continue to monitor patient.
--- NOTE | 2019-10-07 07:32 | NUR ---
HAND-OFF: Report given to ISHAAN Bonds.
[2019-10-07] MEDS ORDERED: cefOXitin Sod 1 GM in D5W 55 ML IVPB SCH (08:30)
[2019-10-07] MEDS ORDERED: Propofol 200mg/20ml IV ONE (09:18)
[2019-10-07] MEDS ORDERED: Lidocaine 1% MPF 10mg/ml 5ml ONE (09:18)
[2019-10-07] MEDS ORDERED: NS 110ml ONE (09:18)
[2019-10-07] MEDS ORDERED: NS 500ML IVPB ONE (09:28)
[2019-10-07] MEDS ORDERED: cefOXitin 1gm Inj ONE (09:39)
--- NOTE | 2019-10-07 09:44 | Pre-Procedure Note/Attestation ---
Pre-Procedure Note/Attestation Complete Prior to Procedure Planned Procedure: not applicable Procedure Narrative: peg Indications for Procedure Pre-Operative Diagnosis: dysphagia Attestation I attest that I discussed the nature of the procedure; its benefits; risks and complications; and alternatives (and the risks and benefits of such alternatives ), prior to the procedure, with the patient (or the patient's legal cash posting representative). I attest that, if there was a reasonable possibility of needing a blood transfusion, the patient (or the patient's legal cash posting representative) was given the [facility] standardized written summary, pursuant to the [employer] [place] Blood Safety Act ([place] Health and Safety Code # 1645, as amended). I attest that I re-evaluated the patient just prior to the surgery and that there has been no change in the patient's H&P, except as documented below: Nelson Phoenix MD Oct 07, 2019 09:44
[2019-10-07] MEDS ORDERED: NS 55ml IV ONE (09:45)
[2019-10-07] MEDS ORDERED: Midazolam 2mg/2ml Inj IVP PRN (09:45)
[2019-10-07] MEDS ORDERED: DiphenhydrAMINE 50mg/ml Inj IVP PRN (09:45)
[2019-10-07] MEDS ORDERED: Atropine Inj 1mg/10ml Syr IV PRN (09:45)
[2019-10-07] MEDS ORDERED: fentaNYL 100 mcg/2 mL IV PRN (09:45)
--- NOTE | 2019-10-07 10:08 | Endoscopy Procedure Note ---
Endoscopy Procedure Note General Indication for Procedure: dysphagia Procedures Performed: EGD, PEG Operative Findings/Diagnosis: gastritis Specimen: yes Pt Tolerated Procedure Well: Yes Estimated Blood Loss: none Anesthesia Anesthesiologist: shakira Anesthesia: MAC Inserted Devices Implant(s) used?: No GI Core Measures 50 yrs or older w/o bx or poly: Not Applicable 10yrs. F/U recommended: Not Applicable Nelson Phoenix MD Oct 07, 2019 10:08
--- NOTE | 2019-10-07 11:05 | NUR ---
NURSE NOTES:Handoff received from ISHAAN Echeverria. Patient stable and resting in bed, patient not verbally responsive, but is able to follow simple commands, vital signs stable, Patient received PEG placement today. will follow orders for feeding and aftercare following procedure. Jacki stated that IV was infiltrated and that patient now has a new IV site in the left A/C. Abdominal dressing is clean dry and intact, will continue to monitor patient.
--- NOTE | 2019-10-07 11:40 | NUR ---
NURSE NOTES: called Jun from [employer] as the only plug in the room is blocked with a piece of metal stuck in one of the prongs.
--- NOTE | 2019-10-07 12:04 | Infectious Diseases Prog Note ---
Assessment/Plan Assessment/Plan ASSESSMENT AND PLAN: 1. streptococcus agalactiae - group b bacteremia, ? endocarditis, esbl e.coli uti, sirs, leukocytosis, ? pna on chest x-ray - ? hcap/aspiration vs pulmonary edema, left foot great toe/1st toe wound infection - MRI c/w osteomyelitis, elevated sed rate f/u urine culture with persistent yeast - s/p 6 weeks iv abx - vancomycin, cefepime, flagyl - CRP improved significantly - 20.6 to 8.3, sed rate12 to 96 - ERIBERTO negative for vegetation, s/p tx for bacteremia - wound culture right foot with normal maximino but likely polymicrobial infection - monitor labs, recent chest x-ray negative - surgery note reviewed - left foot improving - s/p diflucan - monitor off abx 2. Acute kidney injury with elevated creatinine. 3. History of diabetes. 4. for feeding tube for decreased oral intake 5. Blood pressure treatment per primary care team and diabetes treatment per primary care team and consultants. 6. Parkinson's. 7. Dementia, weakness 8. The patient does have also elevated troponin. Cardiology follow-up. 9. MAR was noted. 10. Case was discussed with RN. 11. No known allergies. 12. Social history is negative. 13. Family history is noncontributory. 14. Continue treatment per primary consultants. 15. Orders were noted and entered. Subjective Constitutional: Denies: fever Respiratory: Denies: shortness of breath Cardiovascular: Denies: chest pain Gastrointestinal/Abdominal: Denies: nausea, vomiting Allergies: Coded Allergies: No Known Allergies (Unverified , 10/23/13) Objective Vital Signs Last 24 Hour Vital Signs Date Time Temp Pulse Resp B/P (MAP) Pulse Ox O2 Delivery O2 Flow Rate FiO2 10/07/19 10:50 97.8 70 16 128/68 100 Nasal Cannula 3 70 10/07/19 10:45 67 18 133/67 100 Nasal Cannula 3 69 10/07/19 10:30 67 17 132/66 100 Nasal Cannula 3 67 10/07/19 10:20 70 15 129/65 100 Nasal Cannula 3 70 10/07/19 10:15 69 18 124/63 100 Nasal Cannula 3 69 10/07/19 10:12 97.7 67 18 124/63 100 Nasal Cannula 3 67 10/07/19 09:00 Room Air 10/07/19 08:00 97.5 79 20 132/83 (99) 99 10/07/19 04:00 98.0 76 21 129/58 (81) 95 10/07/19 02:09 Room Air 10/07/19 00:00 98.7 83 20 123/59 (80) 96 10/06/19 20:13 Room Air 10/06/19 20:00 97.9 73 20 102/49 (66) 95 10/06/19 16:00 98.6 85 19 110/52 (71) 98 Height (Feet): 5 Height (Inches): 5.00 Weight (Pounds): 127 General Appearance: no acute distress HEENT: normocephalic, atraumatic, anicteric Respiratory/Chest: lungs clear, normal breath sounds, no respiratory distress, no accessory muscle use Cardiovascular: normal rate, regular rhythm Abdomen: normal bowel sounds, soft, non tender Skin: other - wounds covered Objective Chest x-ray - FINDINGS: Lungs: Mild vascular congestion. Pleural space: Unremarkable. No pneumothorax. Heart: Borderline cardiomegaly, potentially exaggerated by portable technique. Mediastinum: Calcified aorta. Bones/joints: Osteopenia. Degenerative changes. IMPRESSION: Mild vascular congestion CT abdomen: Impression: Anasarca, as described, with generalized edema of subcutaneous abdominal fat, moderate-sized bilateral pleural effusions, pulmonary interstitial and airspace edema Compressive atelectasis of the lower lobes due to the pleural fluid Evidence of rectal fecal impaction and possible stercoral proctitis Pessary, likely malpositioned, as described. There is evidence of bladder floor relaxation despite the pessary Dilated extrahepatic bile ducts. Most likely related to patient's age as no downstream obstructive lesion is demonstrated. However, correlation with liver function tests is recommended, with consideration for MRCP if clinically indicated Questionable slight retrococcygeal decubitus changes. Correlate with findings Other findings as noted, including evidence of prior renal cortical scarring, Buckner catheter, uterine arcuate artery calcifications Chest x-ray - 09/05/19 - Indication: Cough Technique: One view of the chest Comparison: 08/24/2019 Findings: There is increased interstitial edema. There is evidence of left perihilar airspace disease There is suggestion of trace bilateral pleural effusions. The heart size is upper limits normal. Impression: Increased interstitial edema, since prior exam 08/24/2019 Suspect left perihilar consolidation Small bilateral pleural effusions Chest x-ray - 09/07/19 - IMPRESSION: 1. Interval mild improvement in the diffusely increased interstitial markings compared to the prior exam, suggesting improved pulmonary interstitial edema. 2. Linear atelectasis at the periphery of the left mid lung. 3. Possible small left pleural effusion. MRI left foot: IMPRESSION: Evidence of acute osteomyelitis involving the hallux as described above. Cellulitis. Current Medications Medications (Trade) Dose Ordered Sig/Krystin Route PRN Reason Start Time Stop Time Status Last Admin Dose Admin Acetaminophen (Tylenol) 650 mg Q4H PRN ORAL Mild Pain (Pain Scale 1-3) 10/07/19 09:45 10/07/19 18:00 Acetaminophen (Tylenol) 650 mg Q6H PRN ORAL Mild Pain/Temp > 100.5 09/27/19 18:19 10/27/19 18:18 10/03/19 17:50 Al Hydroxide/Mg Hydroxide (Mylanta) 15 ml Q1H PRN ORAL gi upset 10/07/19 09:45 10/07/19 18:00 Atropine Sulfate (Atropine) 0.5 mg Q5M PRN IV bpm less than 45 10/07/19 09:45 10/07/19 18:00 Cefoxitin Sodium 1 gm/Dextrose 55 ml @ 110 mls/hr ONCE IVPB 10/07/19 08:30 10/07/19 23:59 10/07/19 09:45 Dextrose 1,000 ml @ 50 mls/hr Q20H IV 09/26/19 00:30 10/26/19 00:29 10/06/19 21:24 Dextrose (Dextrose 50%) 25 ml Q30M PRN IV Hypoglycemia 09/30/19 07:00 10/30/19 06:59 Dextrose (Dextrose 50%) 50 ml Q30M PRN IV Hypoglycemia 09/30/19 07:00 10/30/19 06:59 Diphenhydramine HCl (Benadryl) 25 mg Q15M PRN IVP Itching 10/07/19 09:45 10/07/19 18:00 Fentanyl Citrate (Sublimaze 100 mcg/2 mL) 25 mcg Q10M PRN IV Moderate Pain (Pain Scale 4-6) 10/07/19 09:45 10/07/19 18:00 Hydralazine HCl (Apresoline) 5 mg Q30M PRN IV SBP>160 OR___/DBP>90 OR___ 10/07/19 09:45 10/07/19 18:00 Insulin Aspart (NovoLOG) BEFORE MEALS AND HS SUBQ 09/30/19 11:30 10/30/19 11:29 10/06/19 17:10 Midazolam HCl (Versed 2mg/2ml vial) 1 mg Q15M PRN IVP For Anxiety 10/07/19 09:45 10/07/19 18:00 Ondansetron HCl (Zofran) 4 mg Q1H PRN IVP Nausea & Vomiting 10/07/19 09:45 10/07/19 18:00 Sodium Chloride 1,000 ml @ 10 mls/hr Q24H IVLG 10/07/19 09:37 10/07/19 18:00 Vancomycin HCl (Vanco rx to dose) 1 ea DAILY PRN MISC Per rx protocol 09/12/19 08:45 10/12/19 08:44 Gerardo Toledo MD Oct 07, 2019 12:04
--- NOTE | 2019-10-07 12:08 | NUR ---
RD ASSESSMENT & RECOMMENDATIONS SEE CARE ACTIVITY FOR COMPLETE ASSESSMENT DAILY ESTIMATED NEEDS: Needs based on Wounds, DM 49kg 30-35 kcals/kg 0958-1903 total kcals 1.25-2 g protein/kg 61-98 g total protein 25-30m mL/kg 8237-5768 total fluid mLs NUTRITION DIAGNOSIS: Increased kcal and pro needs r/t wound healing as evidenced by pt w/ multiple areas of skin breakdown including unstageable L hip wounds x2, refer to WC eval for full assessment, pt w/ prolonged poor intake, now w/ pending PEG placement today. CURRENT DIET:CCHO MED, liquify pureed moist w/ NTL PO DIET RECOMMENDATIONS: Liberalized REGULAR / texture per DOUBLE REAMER OPERATOR ENTERAL NUTRITION RECOMMENDATIONS: IF TF PART OF POC -> Glucerna 1.2 @ 55ml/hr x 24 hrs to provide 1320ml, 1584kcal, 79g prot, 1062ml free water - Initiate Glucerna 1.2 @ 15ml/hr x 6 hrs - Advance 10ml q 4-6 hrs as tolerated to goal rate - HOB over 30 degrees, flush per MD ADDITIONAL RECOMMENDATIONS: 1) Oral grat as able 2) Monitor for hypoglycemia w/ poor PO- now w/ added D5 3) Wound care:add Vit C 250mg BID + MVI x 1 + Bret 1pkt BID if tolerated 4) Calibrated bed scale wts (w/ added P200 mattress + pump) 5) TF recs as above START AT LOW RATE, PT AT HIGH RISK FOR REFEEDING .
--- NOTE | 2019-10-07 13:26 | Anethesia Preoperative Eval ---
Anesthesia Pre-op PMH/ROS General Date of Evaluation: Oct 07, 2019 Time of Evaluation: 09:18 Anesthesiologist: cristhian ASA Score: ASA 4 Mallampati Score Class I : Soft palate, uvula, fauces, pillars visible Class II: Soft palate, uvula, fauces visible Class III: Soft palate, base of uvula visible Class IV: Only hard plate visible Mallampati Classification: Class II Surgeon: barbara Diagnosis: dysphagia Surgical Procedure: egd/peg Anesthesia History: none Social History: smoking - former smoker Family History: no anesthesia problems Allergies: Coded Allergies: No Known Allergies (Unverified , 10/23/13) Medications: see eMAR Patient NPO?: Yes Past Medical History Cardiovascular: Reports: HTN Pulmonary: Reports: other - pertussis Gastrointestinal/Genitourinary: Reports: other - uti, dysphagia Neurologic/Psychiatric: Reports: CVA, TIA, other - ams, seizure, parkinson's dz , meningitis, weakness Endocrine: Reports: DM Anesthesia Pre-op Phys. Exam Physician Exam Last Vital Signs Date Time Temp Pulse Resp B/P (MAP) Pulse Ox O2 Delivery O2 Flow Rate FiO2 10/07/19 12:00 97.8 76 20 120/59 (79) 94 10/07/19 10:50 Nasal Cannula 3 Constitutional: NAD Neurologic: CN 2-12 intact Cardiovascular: RRR Respiratory: CTA Gastrointestinal: S/NT/ND Airway Exam Mallampati Score: Class II MO: limited Neck: flexible TMD: 2fb ROM: limited Teeth: missing Anesthesia Pre-op A/P Risk Assessment & Plan Assessment: asa4 Plan: mac Status Change Before Surgery: No Pre-Antibiotics Drug: cefoxitin 1gm Time Given: 09:45 Triny Torres MD Oct 07, 2019 13:26
--- NOTE | 2019-10-07 13:28 | Immediate Post-Op Evaluation ---
Immediate Post-Op Evalulation Immediate Post-Op Evalulation Procedure: egd/peg Date of Evaluation: Oct 07, 2019 Time of Evaluation: 10:24 IV Fluids: 100ml 0.9ns Blood Products: none Estimated Blood Loss: negligible Blood Pressure Systolic: 124 Blood Pressure Diastolic: 63 Pulse Rate: 67 Respiratory Rate: 18 O2 Sat by Pulse Oximetry: 100 Temperature (Fahrenheit): 97.7 Pain Score (1-10): 0 Nausea: No Vomiting: No Complications none Patient Status: awake, reacts, patent Hydration Status: adequate Drug: Triny Oliver MD Oct 07, 2019 13:28
--- NOTE | 2019-10-07 13:29 | 48 Hour Post Anesthesia Eval ---
Post Anesthesia Evaluation Procedure: egd/peg Date of Evaluation: Oct 07, 2019 Time of Evaluation: 10:26 Blood Pressure Systolic: 129 0: 65 Pulse Rate: 70 Respiratory Rate: 18 Temperature (Fahrenheit): 97.7 O2 Sat by Pulse Oximetry: 100 Airway: patent Nausea: No Vomiting: No Pain Intensity: 0 Hydration Status: adequate Cardiopulmonary Status: stable Mental Status/LOC: patient returned to baseline Post-Anesthesia Complications: none Follow-up care needed: N/A Triny Torres MD Oct 07, 2019 13:29
--- NOTE | 2019-10-07 13:43 | General Progress Note ---
Assessment/Plan Problem List: (1) Urinary retention ICD Codes: R33.9 - Retention of urine, unspecified SNOMED: 345247104 (2) Renal insufficiency ICD Codes: N28.9 - Disorder of kidney and ureter, unspecified SNOMED: 689439848, 621247903 (3) NSTEMI (non-ST elevated myocardial infarction) ICD Codes: I21.4 - Non-ST elevation (NSTEMI) myocardial infarction SNOMED: 35892102, 103369044 (4) UTI (lower urinary tract infection) (5) Diabetes ICD Codes: E11.9 - Diabetes SNOMED: 92641197 (6) Parkinson disease ICD Codes: G20 - Parkinson disease SNOMED: 02470907 (7) Weakness generalized ICD Codes: R53.1 - Asthenia SNOMED: 96780754 (8) Sepsis (9) HTN (hypertension) ICD Codes: I10 - HTN (hypertension) SNOMED: 79596274 (10) Frailty ICD Codes: R54 - Frailty SNOMED: 581356957 (11) Dehydration (12) Urinary obstruction ICD Codes: N13.9 - Obstructive and reflux uropathy, unspecified SNOMED: 6986223 (13) ATN (acute tubular necrosis) ICD Codes: N17.0 - Acute kidney failure with tubular necrosis SNOMED: 85192560 (14) CVA (cerebral vascular accident) ICD Codes: I63.9 - Cerebral infarction, unspecified SNOMED: 903986219 Status: stable Assessment/Plan: 84-year-old lady from [facility] with history of hypertension, uncontrolled diabetes, and Parkinson disease, who was brought to the emergency room by family member for altered mental status and weakness. #Osteomyelitis left foot/ 1st toe #Severe PVD #Severe sepsis #Group B strep, ESBL UTI and bacteremia - s/p 42 days of vancomycin, cefepime, flagyl - ERIBERTO negative for vegetation. surveillance cultures are negative - wound culture right foot with normal maximino but likely polymicrobial infection - monitor labs, recent chest x-ray negative - s/p diflucan (for fungal uti) - ID following -General surgery consult appreciated - Podiatry consult appreciated #Poor oral intake - calorie count reviewed with RD - s/p PEG (10/07/2019) - Tube feeds to be started. #Anemia, rule out acute blood loss. rule out GI bleed - improved - stool OB negative - appreciate Heme/onc recs - s/p 1 unit PRBC 09/27/19. Consent obtained from family - trend CBC #Hypokalemia #Hypernatremia resolved #Hypophosphatemia Replace as needed Continue to monitor #Uncontrolled DM II - A1c 9-->insulin sliding scale ac/hs, resistant scale, fsbg controlled #Parkinson's disease #Dementia - c/w PD regimen - supportive care - delirium precautions #NSTEMI type II 2/2 renal failure #HFpEF #HTN #Sinus dorian - resolved -d/c heparin gtt/acs protocol per cards, pt w/no chest pain, stable troponin. -Continue ASA -Cont. to hold statin due to rhabdomyolysis. -Decreased Lopressor from 25 mg to 12.5 mg bid due to low heart rate, then d/c on 08/29 for bradycardia, now resolved off Lopressor - s/p lasix 40 mg BID -Echocardiogram Nl EF -continue amlodipine 5 daily - cardiology consult appreciated #OWEN due to ATN - resolved avoid nephrotoxin medications #stage II sacral decubitus ulcer Appreciate wound consult Wound care Buckner in place for healing of wound Pain regimen #Protein calorie malnutrition peg placement on Monday by Dr. Phoenix Time spent on patient care, 36 mins, >50% on counseling and coordination of care Subjective Date patient seen: Oct 07, 2019 Time patient seen: 11:00 Constitutional: Denies: no symptoms, chills, diaphoresis, fever, malaise, weakness, other HEENT: Denies: no symptoms, eye pain, blurred vision, tearing, double vision, ear pain, ear discharge, nose pain, nose congestion, throat pain, throat swelling, mouth pain, mouth swelling, other Cardiovascular: Denies: no symptoms, chest pain, edema, irregular heart rate, lightheadedness, palpitations, syncope, other Respiratory: Denies: no symptoms, cough, orthopnea, shortness of breath, SOB with excertion, SOB at rest, sputum, stridor, wheezing, other Gastrointestinal/Abdominal: Denies: no symptoms, abdomen distended, abdominal pain, black stools, tarry stools, blood in stool, constipated, diarrhea, difficulty swallowing, nausea, poor appetite, poor fluid intake, rectal bleeding , vomiting, other Genitourinary: Denies: no symptoms, burning, discharge, frequency, flank pain, hematuria, incontinence, pain, urgency, other Neurologic/Psychiatric: Denies: no symptoms, anxiety, depressed, emotional problems, headache, numbness, paresthesia, pre-existing deficit, seizure, tingling, tremors, weakness, other Endocrine: Denies: no symptoms, excessive sweating, flushing, intolerance to cold, intolerance to heat, increased hunger, increased thirst, increased urine, unexplained weight gain, unexplained weight loss, other Hematologic/Lymphatic: Denies: no symptoms, anemia, easy bleeding, easy bruising, other Allergies: Coded Allergies: No Known Allergies (Unverified , 10/23/13) Subjective resting comfortably in bed, denies any issues. got her g-tube earlier today. Objective Last 24 Hour Vital Signs Date Time Temp Pulse Resp B/P (MAP) Pulse Ox O2 Delivery O2 Flow Rate FiO2 10/07/19 13:29 70 18 100 10/07/19 13:28 67 18 100 10/07/19 12:00 97.8 76 20 120/59 (79) 94 10/07/19 10:50 97.8 70 16 128/68 100 Nasal Cannula 3 70 10/07/19 10:45 67 18 133/67 100 Nasal Cannula 3 69 10/07/19 10:30 67 17 132/66 100 Nasal Cannula 3 67 10/07/19 10:20 70 15 129/65 100 Nasal Cannula 3 70 10/07/19 10:15 69 18 124/63 100 Nasal Cannula 3 69 10/07/19 10:12 97.7 67 18 124/63 100 Nasal Cannula 3 67 10/07/19 09:00 Room Air 10/07/19 08:00 97.5 79 20 132/83 (99) 99 10/07/19 04:00 98.0 76 21 129/58 (81) 95 10/07/19 02:09 Room Air 10/07/19 00:00 98.7 83 20 123/59 (80) 96 10/06/19 20:13 Room Air 10/06/19 20:00 97.9 73 20 102/49 (66) 95 10/06/19 16:00 98.6 85 19 110/52 (71) 98 Intake and Output 10/06/19 10/07/19 19:00 07:00 Intake Total 1120 ml Output Total 700 ml Balance 1120 ml -700 ml Intake Oral 620 ml IV Total 500 ml Output Urine Total 700 ml # Voids 6 # Bowel Movements 2 Height (Feet): 5 Height (Inches): 5.00 Weight (Pounds): 127 General Appearance: WD/WN, no apparent distress Neck: supple Cardiovascular: normal rate, regular rhythm Respiratory/Chest: lungs clear, normal breath sounds Abdomen: normal bowel sounds, soft, other - has G-tube Extremities: normal range of motion Edema: trace edema Neurologic: alert Arnie Bee M.D. Oct 07, 2019 13:43
--- NOTE | 2019-10-07 13:47 | NUR ---
NURSE NOTES: engineering fixed the plug, can now initiate tube feedings per MD orders. Will give Insulin now that patient has tube feedings resumed..
--- NOTE | 2019-10-07 14:31 | Cardiac Electrophysiology PN ---
Assessment/Plan Assessment/Plan 1. NSTEMI type 2 due to renal failure with creatinine 1.7. Troponins low and flat. No CP. ECG LBBB Nl EF and no vegetations. On aspirin. Off statin for rhabdomyolysis. Off beta lisbeth for bradycardia 2. Hypertension. On Norvasc 5 daily 3. LBBB and sinus dorian in 30s. Resolved. Off tele 4. Nonsustained VT.Nl EF 5. Acute on chronic diastolic CHF. Echo Nl EF. 6. Urinary tract infection, on IV antibiotic. 7. 4/4 Strep Bacteremia with WBC 25K. Down to 8.8 K on Abx No endocarditis. ERIBERTO on 09/10/19 no vegetation. 8. S/P Renal failure. Resolved 9. Uncontrolled diabetes 10. Left toe ulcer. On Abx per ID and podiatry 11. Malnutrition. S/P PEG today by Dr Sheri NJ RN, daughter Subjective Subjective Comfortable in NAD.No events. Had PEG today by Dr. Phoenix Daughter and grand daughter at bedside asking for po feeding for oral gratification Objective Last 24 Hour Vital Signs Date Time Temp Pulse Resp B/P (MAP) Pulse Ox O2 Delivery O2 Flow Rate FiO2 10/07/19 13:29 70 18 100 10/07/19 13:28 67 18 100 10/07/19 12:00 97.8 76 20 120/59 (79) 94 10/07/19 10:50 97.8 70 16 128/68 100 Nasal Cannula 3 70 10/07/19 10:45 67 18 133/67 100 Nasal Cannula 3 69 10/07/19 10:30 67 17 132/66 100 Nasal Cannula 3 67 10/07/19 10:20 70 15 129/65 100 Nasal Cannula 3 70 10/07/19 10:15 69 18 124/63 100 Nasal Cannula 3 69 10/07/19 10:12 97.7 67 18 124/63 100 Nasal Cannula 3 67 10/07/19 09:00 Room Air 10/07/19 08:00 97.5 79 20 132/83 (99) 99 10/07/19 04:00 98.0 76 21 129/58 (81) 95 10/07/19 02:09 Room Air 10/07/19 00:00 98.7 83 20 123/59 (80) 96 10/06/19 20:13 Room Air 10/06/19 20:00 97.9 73 20 102/49 (66) 95 10/06/19 16:00 98.6 85 19 110/52 (71) 98 Intake and Output 10/06/19 10/07/19 19:00 07:00 Intake Total 1120 ml Output Total 700 ml Balance 1120 ml -700 ml Intake Oral 620 ml IV Total 500 ml Output Urine Total 700 ml # Voids 6 # Bowel Movements 2 Objective HEAD AND NECK: No JVD LUNGS: Clear. CARDIOVASCULAR: Regular S1 and S2 with no gallop or murmur. ABDOMEN: Soft. EXTREMITIES: Left toe ulcer covered with dressing Luis Purdy MD Oct 07, 2019 14:31
--- NOTE | 2019-10-07 14:51 | NUR ---
ST NOTES: SWALLOW STATUS: PATIENT HAD PEG PLACED TODAY. NO PO FOR NOW. PER FAMILY, THEY WANT HER TO HAVE SOME PO FOR QUALITY OF LIFE PURPOSES. DR CARVAJAL APPROVED ORAL GRATIFICATION SO [facility] LIKE HONEY THICK LIQUIDS TSP ONLY WITH POSTED ASPIRATION PRECAUTIONS. STAFF (ISHAAN BEDOLLA) AND FAMILY AWARE/EDUCATED/TRAINED IN POSTED PRECAUTIONS ABOVE BED. PLAN: F/UP WITH SKILLED DYSPHAGIA MANAGEMENT AND TX MOD BARIUM SWALLOW STUDY ONLY IF PT MORE CONSISTENT ABOUT PO INTAKE (MAY REFUSE WITH FRANCHISE BROKER AND FAMILY AT TIMES) CONTINUE WITH NONORAL PEG FEEDINGS AND ORAL CARE WILL START ORAL GRAT DIET FOR DINNER.
--- NOTE | 2019-10-07 15:15 | Procedure Note ---
DATE OF PROCEDURE: 10/07/2019 SURGEON: Nelson Phoenix M.D. PROCEDURE: Upper endoscopy with PEG placement. ANESTHESIA: Per Dr. Charlton. INSTRUMENT: Olympus adult flexible upper endoscope. INDICATION: Dysphagia REASON FOR PROCEDURE: The procedure, risks, benefits, and possible consequences, including hemorrhage, aspiration, perforation and infection, and alternative treatments, were explained to the patient/legal guardian by Dr. Nelson Phoenix and the patient/legal guardian understood and accepted these risks. DESCRIPTION OF PROCEDURE: After informed consent was obtained and the patient was adequately sedated, Olympus upper endoscope was advanced from mouth into the second portion of the duodenum and retroflexion was performed in the stomach. The patient has diffuse atrophic gastritis. Under endoscopic guidance under sterile condition, 20-Wolof pull type of G-tube was successfully placed in the epigastric area. The distance from the tip of the tube to skin was about 2 cm in size. The patient tolerated the procedure very well without any complications. SUMMARY OF FINDINGS: 1. Atrophic gastritis. 2. Status post successful PEG placement. RECOMMENDATIONS: 1. Abdominal binder. 2. Elevate the head of the bed at all times. 3. G-tube flush. 4. G-tube care. 5. Start tube feeding later today. 6. The patient currently on antibiotics. We will continue. I want to thank Dr. Butler for this kind referral. Nelson Phoenix M.D. DR: GIANA JOB#: [id number] CC: Kendra Butler M.D.; Fax#: [phone]
--- NOTE | 2019-10-07 16:55 | NUR ---
CASE MANAGEMENT:REVIEW SI;ATROPHIC GASTRITIS. S/P PEG PLACEMENT. 97.9 86 20 134/56 94% ON RA IS;PEG PLACEMENT MED SURG STATUS DCP;FROM HOME
--- NOTE | 2019-10-07 17:23 | NUR ---
NURSE NOTES: Patient tolerating Gtube feeding well, increased rate from 15ml/HR to 30ML/HR with goal of 60ML/HR.
--- NOTE | 2019-10-07 19:35 | NUR ---
HAND-OFF: Report given to ISHAAN Leon.Endorsed to increase Gtube feeding as tolerated to goal of 60Ml/Hour
--- NOTE | 2019-10-07 19:36 | NUR ---
NURSE NOTES: Received report from ISHAAN Bonds. Patient asleep. Breathing unlabored on room air without distress. No s/s of discomfort or pain noted at this time. IV noted intact, dry, clean, and patent on right upper arm running IVF. Gtube noted intact running feeding at 30ml/hr. No residuals at this time. Will increase as tolerated. SCDs on and working. Patient on P200 mattress. Bed placed at the lowest with alarm, brake, and siderails up for patient safety. Call light placed within reach. Will continue to monitor and provide care as ordered.
[2019-10-08] VITALS: BP 150/55
[2019-10-08 04:00] VITALS: BP 126/48
--- NOTE | 2019-10-08 06:00 | NUR ---
NURSE NOTES: Provided proper incontinence care. Changed sacral, L hip, and L hallux dressings as ordered. Patient tolerated feeding well without residual and reached goal feeding rate of 60ml/hr. Will continue to monitor.
[2019-10-08] MEDS: NovoLOG Insulin Flexpen SUBQ SCH ×4 (06:13→20:44)
--- NOTE | 2019-10-08 06:49 | Hematology/Onc Progress Note ---
Assessment/Plan Assessment/Plan # Anemia of chronic disease due to underlying chronic medical issues, multifactorial v iron deficiency --> Anemia workup has been ordered, rule out gi bleed seen gi --> No evidence of hemolysis is noted, peripheral smear has been reviewed. --> Hgb goal >7. Transfuse prn. --> Epogen or iron at this time is not particularly indicated --> Medications have been reviewed --> low threshold for gi evaluation in case has occult + --> hgb 7.9-->7.5->6.7-->10.8-->10.1-->9.6 --> OCULT BLOOD--> if + gi debra; negative x3 # Thrombocytosis is likely reactive from multiple wounds, esbl bactremeia --> abx per id --> likely to downtrend shortly # NSTEMI type 2 as per cards, Dr. Purdy --> Nl EF and no vegetations. On aspirin. Off statin for rhabdomyolysis # Hypertension. On Norvasc 5 --> sbp goal <140 # Acute on chronic diastolic CHF. Echo Nl EF. # Urinary tract infection, on IV antibiotic. # 11/08 Strep Bacteremia with WBC 25K. Down to 6 K on Abx --> No endocarditis. ERIBERTO on 09/10/19 no vegetation. # Uncontrolled diabetes # Left toe ulcer. On iv Abx. --> per id # Dvt ppx heparin sq Appreciate consultation, brianne RN Subjective HEENT: Denies: no symptoms, eye pain, blurred vision, tearing, double vision, ear pain, ear discharge, nose pain, nose congestion, throat pain, throat swelling, mouth pain, mouth swelling, other Cardiovascular: Denies: no symptoms, chest pain, edema, irregular heart rate, lightheadedness, palpitations, syncope, other Respiratory: Denies: no symptoms, cough, shortness of breath, SOB with excertion, SOB at rest, sputum, wheezing, other Gastrointestinal/Abdominal: Denies: no symptoms, abdomen distended, abdominal pain, black stools, tarry stools, blood in stool, constipated, diarrhea, difficulty swallowing, nausea, poor appetite, poor fluid intake, rectal bleeding , vomiting, other Neurologic/Psychiatric: Denies: no symptoms, anxiety, depressed, emotional problems, headache, numbness, paresthesia, pre-existing deficit, seizure, tingling, tremors, weakness, other Allergies: Coded Allergies: No Known Allergies (Unverified , 10/23/13) Subjective 09/26: no bleeding,labs reviewed, no night sweats, no hemolysis hgb is 7.5 09/27: hgb lower again, will order occult blood, dw pcp 09/29: labs have been reviewed, no bleeding or chills, hgb >10 09/30: no events, no bleeding, no night sweats, hgb better 10/01: confused, on abx, no acute events, PT for today 10/06: no bleeding or chills, no night sweats 10/07: labs have been reviewed, no major bleeding, cbc noted Objective Objective Current Medications Medications (Trade) Dose Ordered Sig/Krystin Route PRN Reason Start Time Stop Time Status Last Admin Dose Admin Acetaminophen (Tylenol) 650 mg Q6H PRN ORAL Mild Pain/Temp > 100.5 09/27/19 18:19 10/27/19 18:18 10/03/19 17:50 Dextrose 1,000 ml @ 50 mls/hr Q20H IV 09/26/19 00:30 10/26/19 00:29 10/07/19 17:16 Dextrose (Dextrose 50%) 25 ml Q30M PRN IV Hypoglycemia 09/30/19 07:00 10/30/19 06:59 Dextrose (Dextrose 50%) 50 ml Q30M PRN IV Hypoglycemia 09/30/19 07:00 10/30/19 06:59 Insulin Aspart (NovoLOG) BEFORE MEALS AND HS SUBQ 09/30/19 11:30 10/30/19 11:29 10/08/19 06:13 Last 24 Hour Vital Signs Date Time Temp Pulse Resp B/P (MAP) Pulse Ox O2 Delivery O2 Flow Rate FiO2 10/08/19 04:00 98.1 87 19 126/48 (74) 96 10/08/19 00:00 98.0 79 19 150/55 (86) 98 10/07/19 21:00 Room Air 10/07/19 20:00 98.1 80 20 132/52 (78) 98 10/07/19 16:00 97.9 86 20 134/56 (82) 98 10/07/19 13:29 70 18 100 10/07/19 13:28 67 18 100 10/07/19 12:00 97.8 76 20 120/59 (79) 94 10/07/19 10:50 97.8 70 16 128/68 100 Nasal Cannula 3 70 10/07/19 10:45 67 18 133/67 100 Nasal Cannula 3 69 10/07/19 10:30 67 17 132/66 100 Nasal Cannula 3 67 10/07/19 10:20 70 15 129/65 100 Nasal Cannula 3 70 10/07/19 10:15 69 18 124/63 100 Nasal Cannula 3 69 10/07/19 10:12 97.7 67 18 124/63 100 Nasal Cannula 3 67 10/07/19 09:00 Room Air 10/07/19 08:00 97.5 79 20 132/83 (99) 99 10/07/19 04:00 98.0 76 21 129/58 (81) 95 10/07/19 02:09 Room Air 10/07/19 00:00 98.7 83 20 123/59 (80) 96 10/06/19 20:13 Room Air 10/06/19 20:00 97.9 73 20 102/49 (66) 95 10/06/19 16:00 98.6 85 19 110/52 (71) 98 10/06/19 12:00 98.3 82 16 126/60 (82) 99 10/06/19 09:00 Room Air 10/06/19 08:00 98.8 80 20 108/48 (68) 97 Intake and Output 10/07/19 10/08/19 19:00 07:00 Intake Total 25 ml 1175 ml Output Total 800 ml Balance -775 ml 1175 ml Free Water 200 ml IV Total 25 ml 450 ml Tube Feeding 525 ml Output Urine Total 800 ml Height (Feet): 5 Height (Inches): 5.00 Weight (Pounds): 127 Objective gen: confused pulm:: crackles b/l heent: nc, at neck supple cv: rrr, no mgr abd: soft, nt nd ext: wounds on lower ext left toe ulceration covered dressing++ Nehemiah Randhawa MD Oct 08, 2019 06:49
--- NOTE | 2019-10-08 07:15 | NUR ---
NURSE NOTES:Handoff received from Minsu, RN. Patient Gtube feeding is at goal rate of 60ml/HR. Patient has Buckner catheter patent and draining, IV site is running prescribed fluids, IV site clean dry and intact. Patient is alert and able to make needs known, but Danish speaking only. Patient on p200 mattress and SCD's are on, will continue to monitor patient.
--- NOTE | 2019-10-08 07:30 | NUR ---
HAND-OFF: Report given to ISHAAN Bonds. Informed about the advanced tube feeding rate. Plan of care endorsed.
[2019-10-08 08:00] VITALS: BP 134/65
--- NOTE | 2019-10-08 08:18 | General Progress Note ---
Assessment/Plan Problem List: (1) Anemia ICD Codes: D64.9 - Anemia, unspecified SNOMED: 849483482 (2) PAD (peripheral artery disease) ICD Codes: I73.9 - Peripheral vascular disease, unspecified SNOMED: 403594276 (3) Urinary tract infection due to ESBL Klebsiella ICD Codes: N39.0 - Urinary tract infection, site not specified; B96.89 - Other specified bacterial agents as the cause of diseases classified elsewhere SNOMED: 260552138, 310331150403228 (4) Diabetes mellitus with hyperglycemia ICD Codes: E11.65 - Type 2 diabetes mellitus with hyperglycemia SNOMED: 82339362, 44842641 (5) Decubitus skin ulcer ICD Codes: L89.90 - Pressure ulcer of unspecified site, unspecified stage SNOMED: 084820937 (6) HTN (hypertension) ICD Codes: I10 - HTN (hypertension) SNOMED: 14939899 (7) FTT (failure to thrive) in adult ICD Codes: R62.7 - Adult failure to thrive SNOMED: 390945857 Status: stable Assessment/Plan: abx wound care fu labs s/p PEG placement GTF monitor for residuals Subjective ROS Limited/Unobtainable: No Allergies: Coded Allergies: No Known Allergies (Unverified , 10/23/13) Objective Last 24 Hour Vital Signs Date Time Temp Pulse Resp B/P (MAP) Pulse Ox O2 Delivery O2 Flow Rate FiO2 10/08/19 04:00 98.1 87 19 126/48 (74) 96 10/08/19 00:00 98.0 79 19 150/55 (86) 98 10/07/19 21:00 Room Air 10/07/19 20:00 98.1 80 20 132/52 (78) 98 10/07/19 16:00 97.9 86 20 134/56 (82) 98 10/07/19 13:29 70 18 100 10/07/19 13:28 67 18 100 10/07/19 12:00 97.8 76 20 120/59 (79) 94 10/07/19 10:50 97.8 70 16 128/68 100 Nasal Cannula 3 70 10/07/19 10:45 67 18 133/67 100 Nasal Cannula 3 69 10/07/19 10:30 67 17 132/66 100 Nasal Cannula 3 67 10/07/19 10:20 70 15 129/65 100 Nasal Cannula 3 70 10/07/19 10:15 69 18 124/63 100 Nasal Cannula 3 69 10/07/19 10:12 97.7 67 18 124/63 100 Nasal Cannula 3 67 10/07/19 09:00 Room Air Intake and Output 10/07/19 10/08/19 19:00 07:00 Intake Total 25 ml 1385 ml Output Total 800 ml 1400 ml Balance -775 ml -15 ml Free Water 200 ml IV Total 25 ml 600 ml Tube Feeding 585 ml Output Urine Total 800 ml 1400 ml Height (Feet): 5 Height (Inches): 5.00 Weight (Pounds): 127 General Appearance: no apparent distress Neck: supple Cardiovascular: normal rate Respiratory/Chest: decreased breath sounds Abdomen: normal bowel sounds, non tender, soft Extremities: non-tender Nelson Phoenix MD Oct 08, 2019 08:18
--- NOTE | 2019-10-08 11:16 | Cardiac Electrophysiology PN ---
Assessment/Plan Assessment/Plan 1. NSTEMI type 2 due to renal failure with creatinine 1.7. Troponins low and flat. No CP. ECG LBBB Nl EF and no vegetations. On aspirin. Off statin for rhabdomyolysis. Off beta lisbeth for bradycardia 2. Hypertension. On Norvasc 5 daily 3. LBBB and sinus dorian in 30s. Resolved. Off tele 4. Nonsustained VT.Nl EF 5. Acute on chronic diastolic CHF. Echo Nl EF. 6. Urinary tract infection, on IV antibiotic. 7. 4/4 Strep Bacteremia with WBC 25K. Down to 8.8 K on Abx No endocarditis. ERIBERTO on 09/10/19 no vegetation. 8. S/P Renal failure. Resolved 9. Uncontrolled diabetes 10. Left toe ulcer. On Abx per ID and podiatry 11. Malnutrition. S/P PEG by Dr Phoenix 10/07/19 CLEM RN Subjective Subjective Comfortable in NAD. No events. Had PEG by Dr. Phoenix yesterday. Objective Last 24 Hour Vital Signs Date Time Temp Pulse Resp B/P (MAP) Pulse Ox O2 Delivery O2 Flow Rate FiO2 10/08/19 09:00 Room Air 10/08/19 08:00 97.8 97 19 134/65 (88) 94 10/08/19 04:00 98.1 87 19 126/48 (74) 96 10/08/19 00:00 98.0 79 19 150/55 (86) 98 10/07/19 21:00 Room Air 10/07/19 20:00 98.1 80 20 132/52 (78) 98 10/07/19 16:00 97.9 86 20 134/56 (82) 98 10/07/19 13:29 70 18 100 10/07/19 13:28 67 18 100 10/07/19 12:00 97.8 76 20 120/59 (79) 94 Intake and Output 10/07/19 10/08/19 19:00 07:00 Intake Total 25 ml 1385 ml Output Total 800 ml 1400 ml Balance -775 ml -15 ml Free Water 200 ml IV Total 25 ml 600 ml Tube Feeding 585 ml Output Urine Total 800 ml 1400 ml Objective HEAD AND NECK: No JVD LUNGS: Clear. CARDIOVASCULAR: Regular S1 and S2 with no gallop or murmur. ABDOMEN: Soft. EXTREMITIES: Left toe ulcer covered with dressing Luis Purdy MD Oct 08, 2019 11:16
[2019-10-08 11:48] VITALS: BP 124/59
--- NOTE | 2019-10-08 14:24 | General Progress Note ---
Assessment/Plan Problem List: (1) Urinary retention ICD Codes: R33.9 - Retention of urine, unspecified SNOMED: 414981423 (2) Renal insufficiency ICD Codes: N28.9 - Disorder of kidney and ureter, unspecified SNOMED: 176614361, 844309856 (3) NSTEMI (non-ST elevated myocardial infarction) ICD Codes: I21.4 - Non-ST elevation (NSTEMI) myocardial infarction SNOMED: 62257939, 051749726 (4) UTI (lower urinary tract infection) (5) Diabetes ICD Codes: E11.9 - Diabetes SNOMED: 28854546 (6) Parkinson disease ICD Codes: G20 - Parkinson disease SNOMED: 63683444 (7) Weakness generalized ICD Codes: R53.1 - Asthenia SNOMED: 80704267 (8) Sepsis (9) HTN (hypertension) ICD Codes: I10 - HTN (hypertension) SNOMED: 70041159 (10) Frailty ICD Codes: R54 - Frailty SNOMED: 498058166 (11) Dehydration (12) Urinary obstruction ICD Codes: N13.9 - Obstructive and reflux uropathy, unspecified SNOMED: 8076266 (13) ATN (acute tubular necrosis) ICD Codes: N17.0 - Acute kidney failure with tubular necrosis SNOMED: 67383221 (14) CVA (cerebral vascular accident) ICD Codes: I63.9 - Cerebral infarction, unspecified SNOMED: 395282450 Status: stable Assessment/Plan: 84-year-old lady from [facility] with history of hypertension, uncontrolled diabetes, and Parkinson disease, who was brought to the emergency room by family member for altered mental status and weakness. #Osteomyelitis left foot/ 1st toe #Severe PVD #Severe sepsis #Group B strep, ESBL UTI and bacteremia - s/p 42 days of vancomycin, cefepime, flagyl - ERIBERTO negative for vegetation. surveillance cultures are negative - wound culture right foot with normal maximino but likely polymicrobial infection - monitor labs, recent chest x-ray negative - s/p diflucan (for fungal uti) - ID following -General surgery consult appreciated - Podiatry consult appreciated #Poor oral intake - calorie count reviewed with RD - s/p PEG (10/07/2019) - Tube feeds to be started. -Nutrition consult for bolus feeding recs. Family to be taught on bolus feed, then discharge home, given no insurance. (d/w CM) #Anemia, rule out acute blood loss. rule out GI bleed - improved - stool OB negative - appreciate Heme/onc recs - s/p 1 unit PRBC 09/27/19. Consent obtained from family - trend CBC #Hypokalemia #Hypernatremia resolved #Hypophosphatemia Replace as needed Continue to monitor #Uncontrolled DM II - A1c 9-->insulin sliding scale ac/hs, resistant scale, fsbg controlled #Parkinson's disease #Dementia - c/w PD regimen - supportive care - delirium precautions #NSTEMI type II 2/2 renal failure #HFpEF #HTN #Sinus dorian - resolved -d/c heparin gtt/acs protocol per cards, pt w/no chest pain, stable troponin. -Continue ASA -Cont. to hold statin due to rhabdomyolysis. -Decreased Lopressor from 25 mg to 12.5 mg bid due to low heart rate, then d/c on 08/29 for bradycardia, now resolved off Lopressor - s/p lasix 40 mg BID -Echocardiogram Nl EF -continue amlodipine 5 daily - cardiology consult appreciated #OWEN due to ATN - resolved avoid nephrotoxin medications #stage II sacral decubitus ulcer Appreciate wound consult Wound care Buckner in place for healing of wound Pain regimen #Protein calorie malnutrition -TF as above. Time spent on patient care, 36 mins, >50% on counseling and coordination of care Subjective Date patient seen: Oct 08, 2019 Time patient seen: 15:00 Constitutional: Denies: no symptoms, chills, diaphoresis, fever, malaise, weakness, other HEENT: Denies: no symptoms, eye pain, blurred vision, tearing, double vision, ear pain, ear discharge, nose pain, nose congestion, throat pain, throat swelling, mouth pain, mouth swelling, other Cardiovascular: Denies: no symptoms, chest pain, edema, irregular heart rate, lightheadedness, palpitations, syncope, other Respiratory: Denies: no symptoms, cough, orthopnea, shortness of breath, SOB with excertion, SOB at rest, sputum, stridor, wheezing, other Gastrointestinal/Abdominal: Denies: no symptoms, abdomen distended, abdominal pain, black stools, tarry stools, blood in stool, constipated, diarrhea, difficulty swallowing, nausea, poor appetite, poor fluid intake, rectal bleeding , vomiting, other Genitourinary: Denies: no symptoms, burning, discharge, frequency, flank pain, hematuria, incontinence, pain, urgency, other Neurologic/Psychiatric: Denies: no symptoms, anxiety, depressed, emotional problems, headache, numbness, paresthesia, pre-existing deficit, seizure, tingling, tremors, weakness, other Endocrine: Denies: no symptoms, excessive sweating, flushing, intolerance to cold, intolerance to heat, increased hunger, increased thirst, increased urine, unexplained weight gain, unexplained weight loss, other Hematologic/Lymphatic: Denies: no symptoms, anemia, easy bleeding, easy bruising, other Allergies: Coded Allergies: No Known Allergies (Unverified , 10/23/13) Subjective resting comfortably in bed. toleraing TF. Objective Last 24 Hour Vital Signs Date Time Temp Pulse Resp B/P (MAP) Pulse Ox O2 Delivery O2 Flow Rate FiO2 10/08/19 11:48 98.3 97 18 124/59 (80) 97 10/08/19 09:00 Room Air 10/08/19 08:00 97.8 97 19 134/65 (88) 94 10/08/19 04:00 98.1 87 19 126/48 (74) 96 10/08/19 00:00 98.0 79 19 150/55 (86) 98 10/07/19 21:00 Room Air 10/07/19 20:00 98.1 80 20 132/52 (78) 98 10/07/19 16:00 97.9 86 20 134/56 (82) 98 Intake and Output 10/07/19 10/08/19 19:00 07:00 Intake Total 25 ml 1385 ml Output Total 800 ml 1400 ml Balance -775 ml -15 ml Free Water 200 ml IV Total 25 ml 600 ml Tube Feeding 585 ml Output Urine Total 800 ml 1400 ml Height (Feet): 5 Height (Inches): 5.00 Weight (Pounds): 127 General Appearance: no apparent distress, alert Neck: supple Cardiovascular: normal rate, regular rhythm Respiratory/Chest: lungs clear, normal breath sounds Abdomen: non tender, soft Neurologic: alert, responsive Arnie Bee M.D. Oct 08, 2019 14:24
--- NOTE | 2019-10-08 15:31 | NUR ---
P.T Weekly Progress Notes Pt was initially evaluated on 09/09/19 and has been receiving P.T to this day. Tx consisted of ADL/functional mobility training, thera ex and Neuromuscular re education for sitting balance. Progress is limited by cognitive issue and poor carry over of tasks. Pt remained MOD A x 1 with bed mobilities and continue to require mod support to maintain upright sitting at the EOB. Pt remained dependent with transfers and is non ambulatory. Pt's progress has reached its plateau in acute setting where skilled P.T service is no longer effective at this time. DC P.T services. Recommend SNF at [facility] for the next level of care.
--- NOTE | 2019-10-08 15:42 | NUR ---
ST NOTES: DISCHARGE SWALLOW/SPEECH THERAPY SUMMARY: PATIENT SEEN FOR DYSPHAGIA, SEE SWALLOWING EVALUATION REPORT. PATIENT RECEIVING PEG NONORAL FEEDINGS PRIMARY SOURCE OF NUTRITION AND HYDRATION. HER FAMILY WANTED HER TO HAVE PO INTAKE FOR ORAL GRATIFICATION AND QUALITY OF LIFE PURPOSES. SHE WAS PLACED ON A LIQUIFIED PUREED LIKE HONEY THICK SOUP CONSISTENCY. PER REVENUE STAMPER, DELMA, SHE TAKES A LONG TIME TO SWALLOW BUT SHE WAS ABLE TO CONSUME 1/2 OF HER HOT CEREAL W/O OVERT ASPIRATION. SHE NEEDED CONSISTENT ENCOURAGEMENT TO CONTINUING TO TAKE P.O. MILKING WORKER GAVE PATIENT TSP OF HONEY THICK LIQUID JUICE AND SHE SWALLOWED AFTER 5-6 SECONDS WITH FAIR HYOLARYNGEAL EXCURSION, NO ORAL RESIDUE AND NO OVERT ASPIRATION (3 TRIALS AND THEN REFUSED MORE). GIVEN A TSP OF APPLESAUCE, SHE SWALLOWED AFTER 12 SECONDS WITH FAIR HYOLARYNGEAL EXCURSION, NO ORAL RESIDUE NOR OVERT ASPIRATION NOTED. SHE THEN REFUSED FURTHER PO TRIALS. GOALS MET FOR NEW STAFF AND FAMILY EDUCATED/TRAINED IN POSTED ASPIRATION PRECAUTIONS. WILL HOLD OFF ON MODIFIED BARIUM SWALLOW STUDY SINCE PATIENT IS NOT CONSISTENTLY RECEPTIVE TO PO INTAKE. PLAN: WILL D/C FROM SKILLED MILKING WORKER SERVICES AT THIS TIME SINCE PATIENT HAS A GROSSLY FUNCTIONAL BUT SLOWER SWALLOW FOR ORAL GRATIFICATION PURPOSES. CONTINUE WITH NONORAL FEEDINGS AND ORAL CARE WITH ORAL GRATIFICATION ONLY WHEN THE PATIENT IS RECEPTIVE TO PO INTAKE. NOT A TREATMENT CANDIDATE DUE TO SIGNIFICANT COGNITIVE-BEHAVIORAL DEFICITS.
[2019-10-08 15:53] VITALS: BP 137/66
--- NOTE | 2019-10-08 16:45 | Infectious Diseases Prog Note ---
Assessment/Plan Assessment/Plan ASSESSMENT AND PLAN: 1. streptococcus agalactiae - group b bacteremia, ? endocarditis, esbl e.coli uti, sirs, leukocytosis, ? pna on chest x-ray - ? hcap/aspiration vs pulmonary edema, left foot great toe/1st toe wound infection - MRI c/w osteomyelitis, elevated sed rate f/u urine culture with persistent yeast - s/p 6 weeks iv abx - vancomycin, cefepime, flagyl - CRP improved significantly - 20.6 to 8.3, sed rate12 to 96 - ERIBERTO negative for vegetation, s/p tx for bacteremia - wound culture right foot with normal maximino but likely polymicrobial infection - monitor labs, recent chest x-ray negative - skin care per protocol and surgery - monitor off abx 2. Acute kidney injury with elevated creatinine. 3. History of diabetes. 4. for feeding tube for decreased oral intake 5. Blood pressure treatment per primary care team and diabetes treatment per primary care team and consultants. 6. Parkinson's. 7. Dementia, weakness 8. The patient does have also elevated troponin. Cardiology follow-up. 9. MAR was noted. 10. Case was discussed with RN. 11. No known allergies. 12. Social history is negative. 13. Family history is noncontributory. 14. Continue treatment per primary consultants. 15. Orders were noted and entered. Subjective Constitutional: Denies: fever HEENT: Denies: congestion Respiratory: Denies: shortness of breath Cardiovascular: Denies: chest pain Gastrointestinal/Abdominal: Denies: nausea, vomiting, diarrhea Genitourinary: Reports: other - + arnold Neurologic: Denies: headache Psychiatric: Reports: other - NA Skin: Denies: rash Hematologic: Denies: bleeding Musculoskeletal: Denies: pain Allergies: Coded Allergies: No Known Allergies (Unverified , 10/23/13) Objective Vital Signs Last 24 Hour Vital Signs Date Time Temp Pulse Resp B/P (MAP) Pulse Ox O2 Delivery O2 Flow Rate FiO2 10/08/19 15:53 98.0 92 18 137/66 (89) 98 10/08/19 11:48 98.3 97 18 124/59 (80) 97 10/08/19 09:00 Room Air 10/08/19 08:00 97.8 97 19 134/65 (88) 94 10/08/19 04:00 98.1 87 19 126/48 (74) 96 10/08/19 00:00 98.0 79 19 150/55 (86) 98 10/07/19 21:00 Room Air 10/07/19 20:00 98.1 80 20 132/52 (78) 98 Height (Feet): 5 Height (Inches): 5.00 Weight (Pounds): 127 General Appearance: no acute distress HEENT: normocephalic, atraumatic, anicteric Respiratory/Chest: lungs clear, normal breath sounds, no respiratory distress, no accessory muscle use Cardiovascular: normal rate, regular rhythm, no gallop/murmur, no JVD Abdomen: normal bowel sounds, soft, non tender, no organomegaly, non distended Genitourinary: other - + arnold - urine clear Extremities: other - wounds - covered Skin: no rash Neurologic/Psychiatric: precision lathe operator II-XII grossly normal, 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 Pleural space: Unremarkable. No pneumothorax. Heart: Borderline cardiomegaly, potentially exaggerated by portable technique. Mediastinum: Calcified aorta. Bones/joints: Osteopenia. Degenerative changes. IMPRESSION: Mild vascular congestion CT abdomen: Impression: Anasarca, as described, with generalized edema of subcutaneous abdominal fat, moderate-sized bilateral pleural effusions, pulmonary interstitial and airspace edema Compressive atelectasis of the lower lobes due to the pleural fluid Evidence of rectal fecal impaction and possible stercoral proctitis Pessary, likely malpositioned, as described. There is evidence of bladder floor relaxation despite the pessary Dilated extrahepatic bile ducts. Most likely related to patient's age as no downstream obstructive lesion is demonstrated. However, correlation with liver function tests is recommended, with consideration for MRCP if clinically indicated Questionable slight retrococcygeal decubitus changes. Correlate with findings Other findings as noted, including evidence of prior renal cortical scarring, Arnold catheter, uterine arcuate artery calcifications Chest x-ray - 09/05/19 - Indication: Cough Technique: One view of the chest Comparison: 08/24/2019 Findings: There is increased interstitial edema. There is evidence of left perihilar airspace disease There is suggestion of trace bilateral pleural effusions. The heart size is upper limits normal. Impression: Increased interstitial edema, since prior exam 08/24/2019 Suspect left perihilar consolidation Small bilateral pleural effusions Chest x-ray - 09/07/19 - IMPRESSION: 1. Interval mild improvement in the diffusely increased interstitial markings compared to the prior exam, suggesting improved pulmonary interstitial edema. 2. Linear atelectasis at the periphery of the left mid lung. 3. Possible small left pleural effusion. MRI left foot: IMPRESSION: Evidence of acute osteomyelitis involving the hallux as described above. Cellulitis. Microbiology Date/Time Source Procedure Growth Status 09/03/19 21:00 Blood Blood Culture - Final NO GROWTH AFTER 5 DAYS Complete 09/12/19 14:45 Indwelling Cath Urine Culture - Final Nehal Albicans Complete 09/07/19 13:12 Foot Left Gram Stain - Final Complete 09/07/19 13:12 Wound Culture - Final Usual Skin Maximino Complete Labs Test 10/04/19 05:10 White Blood Count 7.5 K/UL (4.8-10.8) Red Blood Count 3.33 M/UL (4.20-5.40) Hemoglobin 9.6 G/DL (12.0-16.0) Hematocrit 28.9 % (37.0-47.0) Mean Corpuscular Volume 87 FL (80-99) Mean Corpuscular Hemoglobin 28.8 PG (27.0-31.0) Mean Corpuscular Hemoglobin Concent 33.1 G/DL (32.0-36.0) Red Cell Distribution Width 16.8 % (11.6-14.8) Platelet Count 317 K/UL (150-450) Mean Platelet Volume 6.3 FL (6.5-10.1) Neutrophils (%) (Auto) 62.2 % (45.0-75.0) Lymphocytes (%) (Auto) 20.7 % (20.0-45.0) Monocytes (%) (Auto) 13.9 % (1.0-10.0) Eosinophils (%) (Auto) 2.0 % (0.0-3.0) Basophils (%) (Auto) 1.2 % (0.0-2.0) Sodium Level 136 MMOL/L (136-145) Potassium Level 3.5 MMOL/L (3.5-5.1) Chloride Level 103 MMOL/L (98-107) Carbon Dioxide Level 24 MMOL/L (21-32) Anion Gap 9 mmol/L (5-15) Blood Urea Nitrogen 11 mg/dL (7-18) Creatinine 0.9 MG/DL (0.55-1.30) Estimat Glomerular Filtration Rate 59.4 mL/min (>60) Glucose Level 164 MG/DL (74-106) Calcium Level 8.0 MG/DL (8.5-10.1) Total Bilirubin 0.4 MG/DL (0.2-1.0) Aspartate Amino Transf (AST/SGOT) 14 U/L (15-37) Alanine Aminotransferase (ALT/SGPT) 8 U/L (12-78) Alkaline Phosphatase 58 U/L (46-116) Total Protein 6.5 G/DL (6.4-8.2) Albumin 1.4 G/DL (3.4-5.0) Globulin 5.1 g/dL Albumin/Globulin Ratio 0.3 (1.0-2.7) Current Medications Medications (Trade) Dose Ordered Sig/Krystin Route PRN Reason Start Time Stop Time Status Last Admin Dose Admin Acetaminophen (Tylenol) 650 mg Q6H PRN ORAL Mild Pain/Temp > 100.5 09/27/19 18:19 10/27/19 18:18 10/03/19 17:50 Collagenase (Santyl) 1 applic DAILY TOPIC 10/08/19 15:30 11/07/19 15:29 10/08/19 15:30 Dextrose 1,000 ml @ 50 mls/hr Q20H IV 09/26/19 00:30 10/26/19 00:29 10/07/19 17:16 Dextrose (Dextrose 50%) 25 ml Q30M PRN IV Hypoglycemia 09/30/19 07:00 10/30/19 06:59 Dextrose (Dextrose 50%) 50 ml Q30M PRN IV Hypoglycemia 09/30/19 07:00 10/30/19 06:59 Insulin Aspart (NovoLOG) BEFORE MEALS AND HS SUBQ 09/30/19 11:30 10/30/19 11:29 10/08/19 11:15 Gerardo Toledo MD Oct 08, 2019 16:45
--- NOTE | 2019-10-08 19:40 | NUR ---
HAND-OFF: Report given to ISHAAN Leon.
--- NOTE | 2019-10-08 19:45 | NUR ---
NURSE NOTES: Received report from ISHAAN Bonds. Patient asleep. Breathing unlabored on room air without distress. No s/s of pain or discomfort noted at this time. IV noted intact on right upper arm running IVF as ordered. Gtube running feeding as ordered without residual. Buckner intact draining urine to gravity. Patient on P200 mattress. Bed placed at the lowest with alarm, brake, and siderails up and padded for safety. Call light placed within reach. Will continue to monitor and provide care as ordered.
[2019-10-08 20:00] VITALS: BP 121/52
[2019-10-09] VITALS (7 sets, daily range): BP systolic 105–136; BP diastolic 45–62
--- NOTE | 2019-10-09 03:26 | NUR ---
NURSE NOTES: Patient febrile, temperature reading axillary 101.7 and orally 102.2. Reached Dr. Toledo to inform about the patient's temperature. Left a message. Will wait for a call back. PRN tylenol given and cooling measures implemented at this time. Will continue to monitor.
--- NOTE | 2019-10-09 04:27 | NUR ---
NURSE NOTES: Dr. Toledo orders urinary analysis, urine culture, chest xray for pneumonia, blood culture x 2, cbc, cmp, zosyn 3.375 gm Q 8hrs IVPB, and vancomycin 1gm IVPB once and then pharmacy to dose. Order read back and confirmed. Will carry out the order as given.
[2019-10-09] MEDS ORDERED: Zosyn 3.375gm inj ONE (04:56)
[2019-10-09] MEDS ORDERED: NS 110 ML ONE (04:57)
[2019-10-09 05:07] LABS: APPEARANCE,URINE SLIGHTLY CLOUDY; BILIRUBIN, URINE NEGATIVE (NEGATIVE); GLUCOSE, URINE (UA) 4+ (NEGATIVE); KETONES,URINE NEGATIVE (NEGATIVE); LEUKOCYTE ESTERASE ,URINE 3+ (NEGATIVE); NITRITE,URINE NEGATIVE (NEGATIVE); PH,URINE 6 (4.5-8.0); PROTEIN,URINE 2+ (NEGATIVE); UROBILINOGEN,URINE NORMAL MG/DL (0.0-1.0)
[2019-10-09 05:24] LABS: COLOR,URINE YELLOW
[2019-10-09] MEDS: Piperacillin/Tazobactam 3.375 GM in NS 110 ML IVPB SCH ×3 (05:48→20:37)
[2019-10-09] MEDS: NovoLOG Insulin Flexpen SUBQ SCH ×4 (05:49→20:40)
[2019-10-09 06:48] LABS: EOSINOPHILS % (AUTO) 1.6 % (0.0-3.0); HEMATOCRIT 26.3 % (37.0-47.0); HEMOGLOBIN 8.7 G/DL (12.0-16.0); LYMPHOCYTES % (AUTO) 17.2 % (20.0-45.0); MEAN CORPUSCULAR VOLUME 87 FL (80-99); MONOCYTES % (AUTO) 5.5 % (1.0-10.0); NEUTROPHILS % (AUTO) 74.8 % (45.0-75.0); PLATELET COUNT 276 K/UL (150-450); RED BLOOD COUNT 3.04 M/UL (4.20-5.40); RED CELL DISTRIBUTION WIDTH 16.2 % (11.6-14.8); WHITE BLOOD COUNT 8.9 K/UL (4.8-10.8)
--- NOTE | 2019-10-09 07:13 | NUR ---
HAND-OFF: Report given to ISHAAN Lomax. Plan of care endorsed.
[2019-10-09 07:32] LABS: ALANINE AMINOTRANSFERASE 22 U/L (12-78); ALBUMIN 1.4 G/DL (3.4-5.0); ALBUMIN/GLOBULIN RATIO 0.3 (1.0-2.7); ALKALINE PHOSPHATASE 121 U/L (46-116); ANION GAP 11 mmol/L (5-15); ASPARTATE AMINO TRANSFERASE 52 U/L (15-37); BILIRUBIN,TOTAL 0.2 MG/DL (0.2-1.0); BLOOD UREA NITROGEN 15 mg/dL (7-18); CALCIUM 7.7 MG/DL (8.5-10.1); CARBON DIOXIDE 23 MMOL/L (21-32); CHLORIDE 96 MMOL/L (98-107); CREATININE 0.9 MG/DL (0.55-1.30); POTASSIUM 4.2 MMOL/L (3.5-5.1); SODIUM 130 MMOL/L (136-145)
--- NOTE | 2019-10-09 07:59 | NUR ---
NURSE NOTES: PT RESTING IN BED, CALM, AND IN NO APPARENT DISTRESS AT THIS TIME. GTF GLUCERNA 1.2 RUNNING AT 60ML/H. IN HIGH ROBLES'S POSITION. BED IN LOWEST POSITION WITH BEDSIDE RAILS X3 RAISED. BED ALARM ON ZONE 1. WILL CONTINUE TO MONITOR.
--- NOTE | 2019-10-09 09:32 | NUR ---
RADIOLOGY DEPT., CHEST X-RAY DONE.-P.DYE
--- NOTE | 2019-10-09 09:58 | General Progress Note ---
Assessment/Plan Problem List: (1) Anemia ICD Codes: D64.9 - Anemia, unspecified SNOMED: 505862566 (2) PAD (peripheral artery disease) ICD Codes: I73.9 - Peripheral vascular disease, unspecified SNOMED: 357562156 (3) Urinary tract infection due to ESBL Klebsiella ICD Codes: N39.0 - Urinary tract infection, site not specified; B96.89 - Other specified bacterial agents as the cause of diseases classified elsewhere SNOMED: 936401761, 447748656407752 (4) Diabetes mellitus with hyperglycemia ICD Codes: E11.65 - Type 2 diabetes mellitus with hyperglycemia SNOMED: 90746886, 73664069 (5) Decubitus skin ulcer ICD Codes: L89.90 - Pressure ulcer of unspecified site, unspecified stage SNOMED: 915445287 (6) HTN (hypertension) ICD Codes: I10 - HTN (hypertension) SNOMED: 13653846 (7) FTT (failure to thrive) in adult ICD Codes: R62.7 - Adult failure to thrive SNOMED: 922470903 Status: stable Assessment/Plan: abx per ID wound care fu labs s/p PEG placement GTF monitor for residuals slowly dropping H&H>> repeat cbs, check stool ob Subjective ROS Limited/Unobtainable: No Allergies: Coded Allergies: No Known Allergies (Unverified , 10/23/13) Objective Last 24 Hour Vital Signs Date Time Temp Pulse Resp B/P (MAP) Pulse Ox O2 Delivery O2 Flow Rate FiO2 10/09/19 08:00 97.6 76 18 108/49 (68) 98 10/09/19 05:08 99.0 106/45 (65) 10/09/19 04:11 101.7 10/09/19 03:27 102.2 90 26 115/50 (71) 96 10/09/19 00:00 98.9 99 20 136/62 (86) 96 10/08/19 21:00 Room Air 10/08/19 20:00 88 18 121/52 (75) 96 10/08/19 15:53 98.0 92 18 137/66 (89) 98 10/08/19 11:48 98.3 97 18 124/59 (80) 97 Intake and Output 10/08/19 10/09/19 19:00 07:00 Intake Total 1397.5 ml Output Total 600 ml 300 ml Balance -600 ml 1097.5 ml Free Water 200 ml IV Total 477.5 ml Tube Feeding 720 ml Output Urine Total 600 ml 300 ml # Voids 1 # Bowel Movements 1 1 Laboratory Tests 10/09/19 04:45: Urine Color Yellow, Urine Appearance Slightly cloudy, Urine pH 6, Urine Specific [place] 1.010, Urine Protein 2+H, Urine Glucose (UA) 4+H, Urine Ketones Negative, Urine Blood 4+H, Urine Nitrite Negative, Urine Bilirubin Negative, Urine Urobilinogen Normal, Urine Leukocyte Esterase 3+H, Urine RBC 10- 15H, Urine WBC 30-40H, Urine Squamous Epithelial Cells Few, Urine Bacteria ModerateH, Urine Coarse Granular Casts 0-2H, Urine Yeast ManyH 10/09/19 05:27: White Blood Count 8.9, Red Blood Count 3.04L, Hemoglobin 8.7L, Hematocrit 26.3L , Mean Corpuscular Volume 87, Mean Corpuscular Hemoglobin 28.7, Mean Corpuscular Hemoglobin Concent 33.1, Red Cell Distribution Width 16.2H, Platelet Count 276, Mean Platelet Volume 6.3L, Neutrophils (%) (Auto) 74.8, Lymphocytes (%) (Auto) 17.2L, Monocytes (%) (Auto) 5.5, Eosinophils (%) (Auto) 1.6, Basophils (%) (Auto) 1.0, Sodium Level 130L, Potassium Level 4.2, Chloride Level 96L, Carbon Dioxide Level 23, Anion Gap 11, Blood Urea Nitrogen 15, Creatinine 0.9, Estimat Glomerular Filtration Rate 59.4, Glucose Level 271H, Calcium Level 7.7L, Total Bilirubin 0.2, Aspartate Amino Transf (AST/SGOT) 52H, Alanine Aminotransferase (ALT/SGPT) 22, Alkaline Phosphatase 121H, Total Protein 6.3L, Albumin 1.4L, Globulin 4.9, Albumin/Globulin Ratio 0.3L Height (Feet): 5 Height (Inches): 5.00 Weight (Pounds): 127 General Appearance: no apparent distress EENT: normal ENT inspection Neck: supple Cardiovascular: normal rate Respiratory/Chest: decreased breath sounds Abdomen: normal bowel sounds, non tender, soft Extremities: non-tender Nelson Phoenix MD Oct 09, 2019 09:58
[2019-10-09] MEDS ORDERED: Vancomycin 1gm in D5W 275ml IVPB SCH (10:00)
--- NOTE | 2019-10-09 11:43 | Hematology/Onc Progress Note ---
Assessment/Plan Assessment/Plan # Anemia of chronic disease due to underlying chronic medical issues, multifactorial v iron deficiency --> Anemia workup has been ordered, rule out gi bleed seen gi --> No evidence of hemolysis is noted, peripheral smear has been reviewed. --> Hgb goal >7. Transfuse prn. --> Epogen or iron at this time is not particularly indicated --> Medications have been reviewed --> low threshold for gi evaluation in case has occult + --> hgb 7.9-->7.5->6.7-->10.8-->10.1-->9.6-->8.7 --> OCULT BLOOD--> if + gi debra; negative x3 # Thrombocytosis is likely reactive from multiple wounds, esbl bactremeia --> currently improved --> abx per id --> likely to downtrend shortly # NSTEMI type 2 as per cards, Dr. Purdy --> Nl EF and no vegetations. On aspirin. Off statin for rhabdomyolysis # Hypertension. On Norvasc 5 --> sbp goal <140 # Acute on chronic diastolic CHF. Echo Nl EF. # Urinary tract infection, on IV antibiotic. # 11/08 Strep Bacteremia with WBC 25K. Down to 6 K on Abx --> No endocarditis. ERIBERTO on 09/10/19 no vegetation. # Uncontrolled diabetes # Left toe ulcer. On iv Abx. --> per id # Dvt ppx heparin sq Appreciate consultation, brianne RN Subjective Allergies: Coded Allergies: No Known Allergies (Unverified , 10/23/13) Subjective 09/26: no bleeding,labs reviewed, no night sweats, no hemolysis hgb is 7.5 09/27: hgb lower again, will order occult blood, brianne pcp 09/29: labs have been reviewed, no bleeding or chills, hgb >10 09/30: no events, no bleeding, no night sweats, hgb better 10/01: confused, on abx, no acute events, PT for today 10/06: no bleeding or chills, no night sweats 10/07: labs have been reviewed, no major bleeding, cbc noted 10/08: temp 102.2 overnight, on room air, h/h stable, cxr to r/o pna Objective Objective Current Medications Medications (Trade) Dose Ordered Sig/Krystin Route PRN Reason Start Time Stop Time Status Last Admin Dose Admin Acetaminophen (Tylenol) 650 mg Q6H PRN ORAL Mild Pain/Temp > 100.5 09/27/19 18:19 10/27/19 18:18 10/09/19 03:03 Collagenase (Santyl) 1 applic DAILY TOPIC 10/08/19 15:30 11/07/19 15:29 10/09/19 09:19 Dextrose 1,000 ml @ 50 mls/hr Q20H IV 09/26/19 00:30 10/26/19 00:29 10/08/19 20:00 Dextrose (Dextrose 50%) 25 ml Q30M PRN IV Hypoglycemia 09/30/19 07:00 10/30/19 06:59 Dextrose (Dextrose 50%) 50 ml Q30M PRN IV Hypoglycemia 09/30/19 07:00 10/30/19 06:59 Insulin Aspart (NovoLOG) BEFORE MEALS AND HS SUBQ 09/30/19 11:30 10/30/19 11:29 10/09/19 05:49 Piperacillin Sod/ Tazobactam Sod 3.375 gm/Sodium Chloride 110 ml @ 27.5 mls/hr EVERY 8 HOURS IVPB 10/09/19 06:00 10/14/19 05:59 10/09/19 05:48 Vancomycin HCl (Vanco rx to dose) 1 ea DAILY PRN MISC Per rx protocol 10/09/19 04:30 11/08/19 04:29 Vancomycin HCl 1 gm/Dextrose 275 ml @ 183.708 mls/hr Q24H IVPB 10/09/19 10:00 10/14/19 09:59 10/09/19 09:19 Last 24 Hour Vital Signs Date Time Temp Pulse Resp B/P (MAP) Pulse Ox O2 Delivery O2 Flow Rate FiO2 10/09/19 09:00 Room Air 10/09/19 08:00 97.6 76 18 108/49 (68) 98 10/09/19 05:08 99.0 106/45 (65) 10/09/19 04:11 101.7 10/09/19 03:27 102.2 90 26 115/50 (71) 96 10/09/19 00:00 98.9 99 20 136/62 (86) 96 10/08/19 21:00 Room Air 10/08/19 20:00 88 18 121/52 (75) 96 10/08/19 15:53 98.0 92 18 137/66 (89) 98 10/08/19 11:48 98.3 97 18 124/59 (80) 97 10/08/19 09:00 Room Air 10/08/19 08:00 97.8 97 19 134/65 (88) 94 10/08/19 04:00 98.1 87 19 126/48 (74) 96 10/08/19 00:00 98.0 79 19 150/55 (86) 98 10/07/19 21:00 Room Air 10/07/19 20:00 98.1 80 20 132/52 (78) 98 10/07/19 16:00 97.9 86 20 134/56 (82) 98 10/07/19 13:29 70 18 100 10/07/19 13:28 67 18 100 10/07/19 12:00 97.8 76 20 120/59 (79) 94 Intake and Output 10/08/19 10/09/19 19:00 07:00 Intake Total 1397.5 ml Output Total 600 ml 300 ml Balance -600 ml 1097.5 ml Free Water 200 ml IV Total 477.5 ml Tube Feeding 720 ml Output Urine Total 600 ml 300 ml # Voids 1 # Bowel Movements 1 1 Labs Test 10/09/19 04:45 10/09/19 05:27 Urine Color Yellow Urine Appearance Slightly cloudy Urine pH 6 (4.5-8.0) Urine Specific [place] 1.010 (1.005-1.035) Urine Protein 2+ (NEGATIVE) Urine Glucose (UA) 4+ (NEGATIVE) Urine Ketones Negative (NEGATIVE) Urine Blood 4+ (NEGATIVE) Urine Nitrite Negative (NEGATIVE) Urine Bilirubin Negative (NEGATIVE) Urine Urobilinogen Normal MG/DL (0.0-1.0) Urine Leukocyte Esterase 3+ (NEGATIVE) Urine RBC 10-15 /HPF (0 - 2) Urine WBC 30-40 /HPF (0 - 2) Urine Squamous Epithelial Cells Few /LPF (NONE/OCC) Urine Bacteria Moderate /HPF (NONE) Urine Coarse Granular Casts 0-2 /LPF (NONE) Urine Yeast Many /HPF (NONE) White Blood Count 8.9 K/UL (4.8-10.8) Red Blood Count 3.04 M/UL (4.20-5.40) Hemoglobin 8.7 G/DL (12.0-16.0) Hematocrit 26.3 % (37.0-47.0) Mean Corpuscular Volume 87 FL (80-99) Mean Corpuscular Hemoglobin 28.7 PG (27.0-31.0) Mean Corpuscular Hemoglobin Concent 33.1 G/DL (32.0-36.0) Red Cell Distribution Width 16.2 % (11.6-14.8) Platelet Count 276 K/UL (150-450) Mean Platelet Volume 6.3 FL (6.5-10.1) Neutrophils (%) (Auto) 74.8 % (45.0-75.0) Lymphocytes (%) (Auto) 17.2 % (20.0-45.0) Monocytes (%) (Auto) 5.5 % (1.0-10.0) Eosinophils (%) (Auto) 1.6 % (0.0-3.0) Basophils (%) (Auto) 1.0 % (0.0-2.0) Sodium Level 130 MMOL/L (136-145) Potassium Level 4.2 MMOL/L (3.5-5.1) Chloride Level 96 MMOL/L (98-107) Carbon Dioxide Level 23 MMOL/L (21-32) Anion Gap 11 mmol/L (5-15) Blood Urea Nitrogen 15 mg/dL (7-18) Creatinine 0.9 MG/DL (0.55-1.30) Estimat Glomerular Filtration Rate 59.4 mL/min (>60) Glucose Level 271 MG/DL (74-106) Calcium Level 7.7 MG/DL (8.5-10.1) Total Bilirubin 0.2 MG/DL (0.2-1.0) Aspartate Amino Transf (AST/SGOT) 52 U/L (15-37) Alanine Aminotransferase (ALT/SGPT) 22 U/L (12-78) Alkaline Phosphatase 121 U/L (46-116) Total Protein 6.3 G/DL (6.4-8.2) Albumin 1.4 G/DL (3.4-5.0) Globulin 4.9 g/dL Albumin/Globulin Ratio 0.3 (1.0-2.7) Height (Feet): 5 Height (Inches): 5.00 Weight (Pounds): 127 Objective gen: confused pulm:: crackles b/l heent: nc, at neck supple cv: rrr, no mgr abd: soft, nt nd ext: wounds on lower ext left toe ulceration covered dressing++ Nehemiah Randhawa MD Oct 09, 2019 11:43
--- NOTE | 2019-10-09 12:31 | NUR ---
RD ASSESSMENT & RECOMMENDATIONS SEE CARE ACTIVITY FOR COMPLETE ASSESSMENT DAILY ESTIMATED NEEDS: Needs based on Wounds, DM, underweight, wt loss 44.5kg 30-40 kcals/kg 5450-5153 total kcals 1.25-2 g protein/kg 61-98 g total protein 25-30m mL/kg 9857-1946 total fluid mLs NUTRITION DIAGNOSIS: Increased kcal and pro needs r/t wound healing as evidenced by pt w/ multiple areas of skin breakdown including unstageable L hip wounds x2, refer to WC eval for full assessment, pt w/ prolonged poor intake, now s/p PEG placement, on GT feeding + oral grat. CURRENT DIET:CCHO MED, liquify pureed HTL as oral grat CURRENT TF:Glucerna 1.2 @ 60ml/hr x 24 hrs PO DIET RECOMMENDATIONS: ORAL GRAT: CCHO LOW/ texture per [employer] ENTERAL NUTRITION RECOMMENDATIONS: Glucerna 1.2 @ 55ml/hr x 24 hrs to provide 1320ml, 1584kcal, 79g prot, 1062ml free water - Rec goal rate of 55ml/hr x 24 hrs: meets 100% est kcal/prot needs - HOB over 30 degrees, flush per MD FOR BOLUS FEEDING UPON DC: - Glucerna 1.5 1 can (237ml) 4x/day to provide 948ml, 1424kcal, 78g prot - H20 flush of 150ml after each bolus ADDITIONAL RECOMMENDATIONS: 1) Wound care:add Vit C 250mg BID + MVI x 1 + Bret BID w/ good TF tolerance @ goal. 2) Calibrated bed scale wts (w/ added P200 mattress + pump) -> calibrated bedscale wt 3/3: 44.5kg/98# 3) Monitor lytes closely, replete as needed 4) DC D5: TF now @ goal, for improved BG control .
--- NOTE | 2019-10-09 14:06 | NUR ---
DISCHARGE PLANNING NOTE CALL MADE TO PATIENTS RP/DAUGHTER FELIPE LEONE @ [phone] IN RE TO PENDING DISCHARGE. INFORMED RP THAT FAMILY/CAREGIVER WOULD NEED TO COME TO HOSPITAL FOR BOLUS FEEDING TEACHING AND PROVIDE RETURN DEMONSTRATION. DAUGHTER [place] [facility] [place] 1700 [place]. RN TO PROVIDE FAMILY TEACHING UPON RP ARRIVAL.
--- NOTE | 2019-10-09 14:06 | Infectious Diseases Prog Note ---
Assessment/Plan Assessment/Plan ASSESSMENT AND PLAN: 1. streptococcus agalactiae - group b bacteremia, ? endocarditis, esbl e.coli uti, sirs, leukocytosis, ? pna on chest x-ray - ? hcap/aspiration vs pulmonary edema, left foot great toe/1st toe wound infection - MRI c/w osteomyelitis, elevated sed rate f/u urine culture with persistent yeast febrile again - ? source - started empiric zosyn and vancomycin for fevers, recheck cultures and chest x-ray - s/p 6 weeks iv abx - vancomycin, cefepime, flagyl for osteo tx - CRP improved significantly - 20.6 to 8.3, sed rate12 to 96 - ERIBERTO negative for vegetation, s/p tx for bacteremia - wound culture right foot with normal maximino but likely polymicrobial infection - monitor labs, recent chest x-ray negative - skin care per protocol and surgery 2. Acute kidney injury with elevated creatinine. 3. History of diabetes. 4. for feeding tube for decreased oral intake 5. Blood pressure treatment per primary care team and diabetes treatment per primary care team and consultants. 6. Parkinson's. 7. Dementia, weakness 8. The patient does have also elevated troponin. Cardiology follow-up. 9. MAR was noted. 10. Case was discussed with RN. 11. No known allergies. 12. Social history is negative. 13. Family history is noncontributory. 14. Continue treatment per primary consultants. 15. Orders were noted and entered. Subjective Constitutional: Reports: fever, fatigue HEENT: Denies: congestion Respiratory: Denies: shortness of breath Cardiovascular: Denies: chest pain Gastrointestinal/Abdominal: Denies: nausea, vomiting Allergies: Coded Allergies: No Known Allergies (Unverified , 10/23/13) Objective Vital Signs Last 24 Hour Vital Signs Date Time Temp Pulse Resp B/P (MAP) Pulse Ox O2 Delivery O2 Flow Rate FiO2 10/09/19 12:00 97.3 73 18 106/54 (71) 98 10/09/19 09:00 Room Air 10/09/19 08:00 97.6 76 18 108/49 (68) 98 10/09/19 05:08 99.0 106/45 (65) 10/09/19 04:11 101.7 10/09/19 03:27 102.2 90 26 115/50 (71) 96 10/09/19 00:00 98.9 99 20 136/62 (86) 96 10/08/19 21:00 Room Air 10/08/19 20:00 88 18 121/52 (75) 96 10/08/19 15:53 98.0 92 18 137/66 (89) 98 Height (Feet): 5 Height (Inches): 5.00 Weight (Pounds): 127 General Appearance: no acute distress HEENT: normocephalic, atraumatic, anicteric Respiratory/Chest: rhonchi - bilaterally Cardiovascular: normal rate, regular rhythm Abdomen: normal bowel sounds, soft, non tender, no organomegaly Skin: other - wounds reviewed and stable Objective Chest x-ray - FINDINGS: Lungs: Mild vascular congestion. Pleural space: Unremarkable. No pneumothorax. Heart: Borderline cardiomegaly, potentially exaggerated by portable technique. Mediastinum: Calcified aorta. Bones/joints: Osteopenia. Degenerative changes. IMPRESSION: Mild vascular congestion CT abdomen: Impression: Anasarca, as described, with generalized edema of subcutaneous abdominal fat, moderate-sized bilateral pleural effusions, pulmonary interstitial and airspace edema Compressive atelectasis of the lower lobes due to the pleural fluid Evidence of rectal fecal impaction and possible stercoral proctitis Pessary, likely malpositioned, as described. There is evidence of bladder floor relaxation despite the pessary Dilated extrahepatic bile ducts. Most likely related to patient's age as no downstream obstructive lesion is demonstrated. However, correlation with liver function tests is recommended, with consideration for MRCP if clinically indicated Questionable slight retrococcygeal decubitus changes. Correlate with findings Other findings as noted, including evidence of prior renal cortical scarring, Buckner catheter, uterine arcuate artery calcifications Chest x-ray - 09/05/19 - Indication: Cough Technique: One view of the chest Comparison: 08/24/2019 Findings: There is increased interstitial edema. There is evidence of left perihilar airspace disease There is suggestion of trace bilateral pleural effusions. The heart size is upper limits normal. Impression: Increased interstitial edema, since prior exam 08/24/2019 Suspect left perihilar consolidation Small bilateral pleural effusions Chest x-ray - 09/07/19 - IMPRESSION: 1. Interval mild improvement in the diffusely increased interstitial markings compared to the prior exam, suggesting improved pulmonary interstitial edema. 2. Linear atelectasis at the periphery of the left mid lung. 3. Possible small left pleural effusion. MRI left foot: IMPRESSION: Evidence of acute osteomyelitis involving the hallux as described above. Cellulitis. Laboratory Tests Test 10/09/19 04:45 10/09/19 05:27 Urine Color Yellow Urine Appearance Slightly cloudy Urine pH 6 (4.5-8.0) Urine Specific [place] 1.010 (1.005-1.035) Urine Protein 2+ (NEGATIVE) H Urine Glucose (UA) 4+ (NEGATIVE) H Urine Ketones Negative (NEGATIVE) Urine Blood 4+ (NEGATIVE) H Urine Nitrite Negative (NEGATIVE) Urine Bilirubin Negative (NEGATIVE) Urine Urobilinogen Normal MG/DL (0.0-1.0) Urine Leukocyte Esterase 3+ (NEGATIVE) H Urine RBC 10-15 /HPF (0 - 2) H Urine WBC 30-40 /HPF (0 - 2) H Urine Squamous Epithelial Cells Few /LPF (NONE/OCC) Urine Bacteria Moderate /HPF (NONE) H Urine Coarse Granular Casts 0-2 /LPF (NONE) H Urine Yeast Many /HPF (NONE) H White Blood Count 8.9 K/UL (4.8-10.8) Red Blood Count 3.04 M/UL (4.20-5.40) L Hemoglobin 8.7 G/DL (12.0-16.0) L Hematocrit 26.3 % (37.0-47.0) L Mean Corpuscular Volume 87 FL (80-99) Mean Corpuscular Hemoglobin 28.7 PG (27.0-31.0) Mean Corpuscular Hemoglobin Concent 33.1 G/DL (32.0-36.0) Red Cell Distribution Width 16.2 % (11.6-14.8) H Platelet Count 276 K/UL (150-450) Mean Platelet Volume 6.3 FL (6.5-10.1) L Neutrophils (%) (Auto) 74.8 % (45.0-75.0) Lymphocytes (%) (Auto) 17.2 % (20.0-45.0) L Monocytes (%) (Auto) 5.5 % (1.0-10.0) Eosinophils (%) (Auto) 1.6 % (0.0-3.0) Basophils (%) (Auto) 1.0 % (0.0-2.0) Sodium Level 130 MMOL/L (136-145) L Potassium Level 4.2 MMOL/L (3.5-5.1) Chloride Level 96 MMOL/L (98-107) L Carbon Dioxide Level 23 MMOL/L (21-32) Anion Gap 11 mmol/L (5-15) Blood Urea Nitrogen 15 mg/dL (7-18) Creatinine 0.9 MG/DL (0.55-1.30) Estimat Glomerular Filtration Rate 59.4 mL/min (>60) Glucose Level 271 MG/DL (74-106) H Calcium Level 7.7 MG/DL (8.5-10.1) L Total Bilirubin 0.2 MG/DL (0.2-1.0) Aspartate Amino Transf (AST/SGOT) 52 U/L (15-37) H Alanine Aminotransferase (ALT/SGPT) 22 U/L (12-78) Alkaline Phosphatase 121 U/L (46-116) H Total Protein 6.3 G/DL (6.4-8.2) L Albumin 1.4 G/DL (3.4-5.0) L Globulin 4.9 g/dL Albumin/Globulin Ratio 0.3 (1.0-2.7) L Current Medications Medications (Trade) Dose Ordered Sig/Krystin Route PRN Reason Start Time Stop Time Status Last Admin Dose Admin Acetaminophen (Tylenol) 650 mg Q6H PRN ORAL Mild Pain/Temp > 100.5 09/27/19 18:19 10/27/19 18:18 10/09/19 03:03 Collagenase (Santyl) 1 applic DAILY TOPIC 10/08/19 15:30 11/07/19 15:29 10/09/19 09:19 Dextrose (Dextrose 50%) 25 ml Q30M PRN IV Hypoglycemia 09/30/19 07:00 10/30/19 06:59 Dextrose (Dextrose 50%) 50 ml Q30M PRN IV Hypoglycemia 09/30/19 07:00 10/30/19 06:59 Insulin Aspart (NovoLOG) BEFORE MEALS AND HS SUBQ 09/30/19 11:30 10/30/19 11:29 10/09/19 12:28 Piperacillin Sod/ Tazobactam Sod 3.375 gm/Sodium Chloride 110 ml @ 27.5 mls/hr EVERY 8 HOURS IVPB 10/09/19 06:00 10/14/19 05:59 10/09/19 05:48 Vancomycin HCl (Vanco rx to dose) 1 ea DAILY PRN MISC Per rx protocol 10/09/19 04:30 11/08/19 04:29 Vancomycin HCl 1 gm/Dextrose 275 ml @ 183.708 mls/hr Q24H IVPB 10/09/19 10:00 10/14/19 09:59 10/09/19 09:19 Gerardo Toledo MD Oct 09, 2019 14:05
--- NOTE | 2019-10-09 14:38 | NUR ---
NURSE NOTES: DR WALLER MADE AWARE OF PT'S HIGH BLOOD SUGAR ON CONTINUOUS GTF GLUCERNA 1.2 AND IVF D5W. NEW ORDERS TO D/C D5W. MADE AWARE OF SODIUM LEVEL 140 TODAY, NO NEW ORDERS. WOUND DRESSINGS CHANGED BY WOUND CARE NURSE.
--- NOTE | 2019-10-09 14:45 | Surgery Progress Note ---
Surgery Progress Note Subjective Additional Comments improving wounds evaluated crosshatched sacrum foot improved Objective Last 24 Hour Vital Signs Date Time Temp Pulse Resp B/P (MAP) Pulse Ox O2 Delivery O2 Flow Rate FiO2 10/09/19 12:00 97.3 73 18 106/54 (71) 98 10/09/19 09:00 Room Air 10/09/19 08:00 97.6 76 18 108/49 (68) 98 10/09/19 05:08 99.0 106/45 (65) 10/09/19 04:11 101.7 10/09/19 03:27 102.2 90 26 115/50 (71) 96 10/09/19 00:00 98.9 99 20 136/62 (86) 96 10/08/19 21:00 Room Air 10/08/19 20:00 88 18 121/52 (75) 96 10/08/19 15:53 98.0 92 18 137/66 (89) 98 I&O Intake and Output 10/08/19 10/09/19 19:00 07:00 Intake Total 1397.5 ml Output Total 600 ml 300 ml Balance -600 ml 1097.5 ml Free Water 200 ml IV Total 477.5 ml Tube Feeding 720 ml Output Urine Total 600 ml 300 ml # Voids 1 # Bowel Movements 1 1 Dressing: dry Wound: clean Cardiovascular: RSR Respiratory: clear Abdomen: soft, non-tender, present bowel sounds Extremities: no edema, no tenderness, no cyanosis Laboratory Tests Test 10/09/19 04:45 10/09/19 05:27 Urine Color Yellow Urine Appearance Slightly cloudy Urine pH 6 (4.5-8.0) Urine Specific [place] 1.010 (1.005-1.035) Urine Protein 2+ (NEGATIVE) H Urine Glucose (UA) 4+ (NEGATIVE) H Urine Ketones Negative (NEGATIVE) Urine Blood 4+ (NEGATIVE) H Urine Nitrite Negative (NEGATIVE) Urine Bilirubin Negative (NEGATIVE) Urine Urobilinogen Normal MG/DL (0.0-1.0) Urine Leukocyte Esterase 3+ (NEGATIVE) H Urine RBC 10-15 /HPF (0 - 2) H Urine WBC 30-40 /HPF (0 - 2) H Urine Squamous Epithelial Cells Few /LPF (NONE/OCC) Urine Bacteria Moderate /HPF (NONE) H Urine Coarse Granular Casts 0-2 /LPF (NONE) H Urine Yeast Many /HPF (NONE) H White Blood Count 8.9 K/UL (4.8-10.8) Red Blood Count 3.04 M/UL (4.20-5.40) L Hemoglobin 8.7 G/DL (12.0-16.0) L Hematocrit 26.3 % (37.0-47.0) L Mean Corpuscular Volume 87 FL (80-99) Mean Corpuscular Hemoglobin 28.7 PG (27.0-31.0) Mean Corpuscular Hemoglobin Concent 33.1 G/DL (32.0-36.0) Red Cell Distribution Width 16.2 % (11.6-14.8) H Platelet Count 276 K/UL (150-450) Mean Platelet Volume 6.3 FL (6.5-10.1) L Neutrophils (%) (Auto) 74.8 % (45.0-75.0) Lymphocytes (%) (Auto) 17.2 % (20.0-45.0) L Monocytes (%) (Auto) 5.5 % (1.0-10.0) Eosinophils (%) (Auto) 1.6 % (0.0-3.0) Basophils (%) (Auto) 1.0 % (0.0-2.0) Sodium Level 130 MMOL/L (136-145) L Potassium Level 4.2 MMOL/L (3.5-5.1) Chloride Level 96 MMOL/L (98-107) L Carbon Dioxide Level 23 MMOL/L (21-32) Anion Gap 11 mmol/L (5-15) Blood Urea Nitrogen 15 mg/dL (7-18) Creatinine 0.9 MG/DL (0.55-1.30) Estimat Glomerular Filtration Rate 59.4 mL/min (>60) Glucose Level 271 MG/DL (74-106) H Calcium Level 7.7 MG/DL (8.5-10.1) L Total Bilirubin 0.2 MG/DL (0.2-1.0) Aspartate Amino Transf (AST/SGOT) 52 U/L (15-37) H Alanine Aminotransferase (ALT/SGPT) 22 U/L (12-78) Alkaline Phosphatase 121 U/L (46-116) H Total Protein 6.3 G/DL (6.4-8.2) L Albumin 1.4 G/DL (3.4-5.0) L Globulin 4.9 g/dL Albumin/Globulin Ratio 0.3 (1.0-2.7) L Plan Problems: (1) Decubitus skin ulcer Assessment & Plan: Base of sacral wound is 90% soft necrosis with surrounding moist erythematous margins.Wound is malodorous Periwound is erythematous without induration or elevation in skin temp.(L)8cm x (W)10.5cm. Darker skin tone noted to R and L ischium. Unstageable pressure injury noted L hip Base of wound 90% necrotic cap that is semi-detached at edges,Oozing small amt brown exudate. Remaining 10% of wound is moist and martha . Edges are erythematous and flat.Wound is malodorous. Periwound is erythematous and indurated. No elevation in skin temp. (L)2.5cm x ( W)1.9cm. Two small dark skin pigmentations R Hip that are in close proximity. NO erythema or induration noted. L foot edematous. Dorsal aspect of L foot is dusky. Necrotic ulcer L hallux /L 1st metatarsal (L)3.7cm x (W)5.2cm.Edges are moist and erythematous. Wound is malodorous. Small amt brown exudate noted. Periwound including L st metatarsal is dusky and fluctuant. L heel is fluctuant with non-blanching erythema. Stable dry eschar noted to distal /lateral R foot. Periwound without erythema, induration or fluctuance.(L)0.4cm x (W)0.3cm. Stable dry eschar noted to lateral R 5th metatarsal.(L)0.3cm x (W)0.3cm. NO erythema,induration or fluctuance periwound. R heel is boggy with non-blanching erythema. change Tx orders for Sacrum and L hip to Santyl Moist gauze daily and prn. Primary nurse is aware and orders changed. left foot improving no drainage now Unstageable pressure injury Sacrum. Base of wound has 80% mixed soft necrosis and slough ,20%pink granulation.Macerated borders.(L)9cm x (W)8.5cm. Periwound skin tone is dark without erythema or induration. Resolving pressure injury L trochanter. [place] granulation at base of wound with dry pink epithelial borders. (L)2.2cm x (W)3.3cm. No odor or exudate noted. No evidence of skin breakdown periwound. Unstageable pressure injury L hallux.. Base of wound 100% necrotic with semidetached borders that are erythmatous and moist.(L)4.8cm x (W)5.7cm. Wound is malodorous. Periwound is fluctuant. Dorsal aspect of L foot is less dusky in comparison to last wound assessment. L 2nd metatarsal dusky but improving Both heels are soft but blanchable. eschar on left foot off now wound bed with good tissue no drainage minimal slough cross hatched sacrum foot improved plan to stop santyl soon Tx.Plan: Cleanse Sacral wound with Saline. Apply Nickel thick Layer Santyl with Saline moistened Gauze. Apply Moisture Barrier Paste periwound. Cover with Optifoam drsg. Daily and prn. Cleanse L hip wound with Saline. Apply Nickel Thick layer of Santyl with Saline Moistened Gauze. Apply Moisture Barrier Paste periwound. Cover with Optifoam drsg.Daily and prn. Cleanse Wound L Hallux with Saline. Apply Nickel thick Layer Santyl with Saline moistened gauze. Cover with ABD Pad and wrap with Kerlix Daily and prn. Apply Cavilon Skin Barrier to Distal/Lateral R foot /R 5th metatarsal Daily. Apply Cavilon SKin Barrier to both heels. Cover each heel with Optifoam drsg. Change every 7 days and prn. Apply Cavilon Skin Barrier to R hip. Cover with Optifoam drsg. Change every 7 days and prn. APM/YURIY Mattress overlay. Reposition at least every 2hours or as tolerated. Off-load heels with pillow. (2) Sepsis Assessment & Plan: Leukocytosis, abnormal labs, tachycardic, per report fevers UA identified urosepsis bacteremic leukocytosis resolved improving overall anemia fevers resolved On antibiotics as per infectious disease Trend labs Okay for diet A.m. labs Wounds unlikely etiology of sepsis as they are chronic and do not look actively infected discussed with medical teams discussed with podiatry - orders placed by no note identified. as per podiatry IV abx 6 weeks over amputation. plan for abx d/c planning cont abx oral for d/c outpatient wound care follow up We will follow with recommendations thank you for let me participate in patient' s care Darrius Miller Oct 09, 2019 14:45
--- NOTE | 2019-10-09 15:49 | Cardiac Electrophysiology PN ---
Assessment/Plan Assessment/Plan 1. NSTEMI type 2 due to renal failure with creatinine 1.7. Troponins low and flat. No CP. ECG LBBB Nl EF and no vegetations. On aspirin. Off statin for rhabdomyolysis. Off beta lisbeth for bradycardia 2. Hypertension. On Norvasc 5 daily 3. LBBB 4. Nonsustained VT.Nl EF 5. Acute on chronic diastolic CHF. Echo Nl EF. 6. Urinary tract infection, on IV antibiotic. 7. 4/4 Strep Bacteremia with WBC 25K. Down to 8.8 K on Abx No endocarditis. ERIBERTO on 09/10/19 no vegetation. 8. S/P Renal failure. 9. Uncontrolled diabetes 10. Left toe ulcer. On Abx per ID and podiatry 11. Malnutrition. S/P PEG by Dr Phoenix 10/07/19 CLEM RN Subjective Subjective Comfortable in NAD. No events. PEG feeding ongoing Objective Last 24 Hour Vital Signs Date Time Temp Pulse Resp B/P (MAP) Pulse Ox O2 Delivery O2 Flow Rate FiO2 10/09/19 12:00 97.3 73 18 106/54 (71) 98 10/09/19 09:00 Room Air 10/09/19 08:00 97.6 76 18 108/49 (68) 98 10/09/19 05:08 99.0 106/45 (65) 10/09/19 04:11 101.7 10/09/19 03:27 102.2 90 26 115/50 (71) 96 10/09/19 00:00 98.9 99 20 136/62 (86) 96 10/08/19 21:00 Room Air 10/08/19 20:00 88 18 121/52 (75) 96 10/08/19 15:53 98.0 92 18 137/66 (89) 98 Intake and Output 10/08/19 10/09/19 19:00 07:00 Intake Total 1397.5 ml Output Total 600 ml 300 ml Balance -600 ml 1097.5 ml Free Water 200 ml IV Total 477.5 ml Tube Feeding 720 ml Output Urine Total 600 ml 300 ml # Voids 1 # Bowel Movements 1 1 Laboratory Tests Test 10/09/19 04:45 10/09/19 05:27 Urine Color Yellow Urine Appearance Slightly cloudy Urine pH 6 (4.5-8.0) Urine Specific [place] 1.010 (1.005-1.035) Urine Protein 2+ (NEGATIVE) H Urine Glucose (UA) 4+ (NEGATIVE) H Urine Ketones Negative (NEGATIVE) Urine Blood 4+ (NEGATIVE) H Urine Nitrite Negative (NEGATIVE) Urine Bilirubin Negative (NEGATIVE) Urine Urobilinogen Normal MG/DL (0.0-1.0) Urine Leukocyte Esterase 3+ (NEGATIVE) H Urine RBC 10-15 /HPF (0 - 2) H Urine WBC 30-40 /HPF (0 - 2) H Urine Squamous Epithelial Cells Few /LPF (NONE/OCC) Urine Bacteria Moderate /HPF (NONE) H Urine Coarse Granular Casts 0-2 /LPF (NONE) H Urine Yeast Many /HPF (NONE) H White Blood Count 8.9 K/UL (4.8-10.8) Red Blood Count 3.04 M/UL (4.20-5.40) L Hemoglobin 8.7 G/DL (12.0-16.0) L Hematocrit 26.3 % (37.0-47.0) L Mean Corpuscular Volume 87 FL (80-99) Mean Corpuscular Hemoglobin 28.7 PG (27.0-31.0) Mean Corpuscular Hemoglobin Concent 33.1 G/DL (32.0-36.0) Red Cell Distribution Width 16.2 % (11.6-14.8) H Platelet Count 276 K/UL (150-450) Mean Platelet Volume 6.3 FL (6.5-10.1) L Neutrophils (%) (Auto) 74.8 % (45.0-75.0) Lymphocytes (%) (Auto) 17.2 % (20.0-45.0) L Monocytes (%) (Auto) 5.5 % (1.0-10.0) Eosinophils (%) (Auto) 1.6 % (0.0-3.0) Basophils (%) (Auto) 1.0 % (0.0-2.0) Sodium Level 130 MMOL/L (136-145) L Potassium Level 4.2 MMOL/L (3.5-5.1) Chloride Level 96 MMOL/L (98-107) L Carbon Dioxide Level 23 MMOL/L (21-32) Anion Gap 11 mmol/L (5-15) Blood Urea Nitrogen 15 mg/dL (7-18) Creatinine 0.9 MG/DL (0.55-1.30) Estimat Glomerular Filtration Rate 59.4 mL/min (>60) Glucose Level 271 MG/DL (74-106) H Calcium Level 7.7 MG/DL (8.5-10.1) L Total Bilirubin 0.2 MG/DL (0.2-1.0) Aspartate Amino Transf (AST/SGOT) 52 U/L (15-37) H Alanine Aminotransferase (ALT/SGPT) 22 U/L (12-78) Alkaline Phosphatase 121 U/L (46-116) H Total Protein 6.3 G/DL (6.4-8.2) L Albumin 1.4 G/DL (3.4-5.0) L Globulin 4.9 g/dL Albumin/Globulin Ratio 0.3 (1.0-2.7) L Objective HEAD AND NECK: No JVD LUNGS: Clear. CARDIOVASCULAR: Regular S1 and S2 with no gallop or murmur. ABDOMEN: Soft. EXTREMITIES: Left toe ulcer covered with dressing Luis Purdy MD Oct 09, 2019 15:49
--- NOTE | 2019-10-09 16:25 | NUR ---
CASE MANAGEMENT:REVIEW SI;URINARY RETENTION. UTI. URINARY OBSTRUCTION. ACUTE TUBULAR NECROSIS. 102.2 90 26 106/45 96% ON RA H/H 8.7/26.3 NA 130 CL 96 BG 271 CA 7.7 AST 52 IS;VANCOMYCIN IV Q24 HRS ZOSYN IV Q8 HRS IVF NS @ 50 ML/HR SANTYL TOP QD MED SURG STATUS DCP;DC PENDING FAMILY EDUCATION FOR GT BOLUS FEEDINGS
--- NOTE | 2019-10-09 16:35 | Diagnostic Imaging Report ---
Indication: Dyspnea Comparison: 09/07/2019 A single view chest radiograph was obtained. Findings: No definite infiltrate or pulmonary vascular congestion identified. The heart is enlarged. The aorta is mildly enlarged consistent with atherosclerotic vascular disease. The bones are osteopenic. There are thoracic vertebral enthesophytes at multiple levels. Impression: No acute disease
--- NOTE | 2019-10-09 16:43 | NUR ---
NURSE NOTES:WOUND CARE FOLLOW-UP NOTES:Unstageable Sacral Pressure Injury resolving. Wound is smaller in size. 90% Loose fibrinous slough with surrounding 10% beefy red granulation at base of wound. Edges adherent to base of wound. Mild odor noted.Small amt sanguineous exudate. No erythema or evidence of further skin breakdown periwound. (L)6.6cm x (W)7.3cm. R trochanteric pressure injury has resolved. Hyperpigmentation noted. L trochanter is blanchable with small dark skin pigmentation noted. Unstageable pressure injury L hallux. Wound is malodorous. Base of wound is 100% soft necrosis and erythematous borders. Small amt brown exudate noted. (L)4.3cm x (W)5.7cm. Stable dry brown eschar L lateral malleolus. No erythema or fluctuance periwound. Wound Tx are effective and continued as ordered. All wound prevention protocols continued as care-planned
--- NOTE | 2019-10-09 17:00 | General Progress Note ---
Assessment/Plan Problem List: (1) Urinary retention ICD Codes: R33.9 - Retention of urine, unspecified SNOMED: 399798614 (2) Renal insufficiency ICD Codes: N28.9 - Disorder of kidney and ureter, unspecified SNOMED: 327037199, 117027794 (3) NSTEMI (non-ST elevated myocardial infarction) ICD Codes: I21.4 - Non-ST elevation (NSTEMI) myocardial infarction SNOMED: 63999851, 057369796 (4) UTI (lower urinary tract infection) (5) Diabetes ICD Codes: E11.9 - Diabetes SNOMED: 67441390 (6) Parkinson disease ICD Codes: G20 - Parkinson disease SNOMED: 48618003 (7) Weakness generalized ICD Codes: R53.1 - Asthenia SNOMED: 06283201 (8) Sepsis (9) HTN (hypertension) ICD Codes: I10 - HTN (hypertension) SNOMED: 42909532 (10) Frailty ICD Codes: R54 - Frailty SNOMED: 351291747 (11) Dehydration (12) Urinary obstruction ICD Codes: N13.9 - Obstructive and reflux uropathy, unspecified SNOMED: 5137716 (13) ATN (acute tubular necrosis) ICD Codes: N17.0 - Acute kidney failure with tubular necrosis SNOMED: 90846720 (14) CVA (cerebral vascular accident) ICD Codes: I63.9 - Cerebral infarction, unspecified SNOMED: 067209205 Status: stable Assessment/Plan: 84-year-old lady from [facility] with history of hypertension, uncontrolled diabetes, and Parkinson disease, who was brought to the emergency room by family member for altered mental status and weakness. #Osteomyelitis left foot/ 1st toe #Severe PVD #Severe sepsis #Group B strep, ESBL UTI and bacteremia #Fever - new 3/4 - s/p 42 days of vancomycin, cefepime, flagyl - vanc/zosyn restarted given fever (3/4 -) - f/u repeat BCx (3/4 -) - ERIBERTO negative for vegetation. surveillance cultures are negative - wound culture right foot with normal maximino but likely polymicrobial infection - monitor labs, recent chest x-ray negative - s/p diflucan (for fungal uti) - ID following -General surgery consult appreciated - Podiatry consult appreciated #Poor oral intake - calorie count reviewed with RD - s/p PEG (10/07/2019) - Tube feeds to be started. -Nutrition consult for bolus feeding recs. Family to be taught on bolus feed, then discharge home, given no insurance. (d/w CM) #Anemia, rule out acute blood loss. rule out GI bleed - improved - stool OB negative - appreciate Heme/onc recs - s/p 1 unit PRBC 09/27/19. Consent obtained from family - trend CBC #Hypokalemia #Hypernatremia resolved #Hypophosphatemia Replace as needed Continue to monitor #Uncontrolled DM II - A1c 9-->insulin sliding scale ac/hs, resistant scale, fsbg controlled #Parkinson's disease #Dementia - c/w PD regimen - supportive care - delirium precautions #NSTEMI type II 2/2 renal failure #HFpEF #HTN #Sinus dorian - resolved -d/c heparin gtt/acs protocol per cards, pt w/no chest pain, stable troponin. -Continue ASA -Cont. to hold statin due to rhabdomyolysis. -Decreased Lopressor from 25 mg to 12.5 mg bid due to low heart rate, then d/c on 08/29 for bradycardia, now resolved off Lopressor - s/p lasix 40 mg BID -Echocardiogram Nl EF -continue amlodipine 5 daily - cardiology consult appreciated #OWEN due to ATN - resolved avoid nephrotoxin medications #stage II sacral decubitus ulcer Appreciate wound consult Wound care Buckner in place for healing of wound Pain regimen #Protein calorie malnutrition -TF as above. Time spent on patient care, 36 mins, >50% on counseling and coordination of care Subjective Date patient seen: Oct 09, 2019 Time patient seen: 16:00 Constitutional: Denies: no symptoms, chills, diaphoresis, fever, malaise, weakness, other HEENT: Denies: no symptoms, eye pain, blurred vision, tearing, double vision, ear pain, ear discharge, nose pain, nose congestion, throat pain, throat swelling, mouth pain, mouth swelling, other Cardiovascular: Denies: no symptoms, chest pain, edema, irregular heart rate, lightheadedness, palpitations, syncope, other Respiratory: Denies: no symptoms, cough, orthopnea, shortness of breath, SOB with excertion, SOB at rest, sputum, stridor, wheezing, other Gastrointestinal/Abdominal: Denies: no symptoms, abdomen distended, abdominal pain, black stools, tarry stools, blood in stool, constipated, diarrhea, difficulty swallowing, nausea, poor appetite, poor fluid intake, rectal bleeding , vomiting, other Genitourinary: Denies: no symptoms, burning, discharge, frequency, flank pain, hematuria, incontinence, pain, urgency, other Neurologic/Psychiatric: Denies: no symptoms, anxiety, depressed, emotional problems, headache, numbness, paresthesia, pre-existing deficit, seizure, tingling, tremors, weakness, other Endocrine: Denies: no symptoms, excessive sweating, flushing, intolerance to cold, intolerance to heat, increased hunger, increased thirst, increased urine, unexplained weight gain, unexplained weight loss, other Hematologic/Lymphatic: Denies: no symptoms, anemia, easy bleeding, easy bruising, other Allergies: Coded Allergies: No Known Allergies (Unverified , 10/23/13) Subjective resting comfortably in bed. Objective Last 24 Hour Vital Signs Date Time Temp Pulse Resp B/P (MAP) Pulse Ox O2 Delivery O2 Flow Rate FiO2 10/09/19 16:00 97.7 78 18 110/60 (77) 97 10/09/19 12:00 97.3 73 18 106/54 (71) 98 10/09/19 09:00 Room Air 10/09/19 08:00 97.6 76 18 108/49 (68) 98 10/09/19 05:08 99.0 106/45 (65) 10/09/19 04:11 101.7 10/09/19 03:27 102.2 90 26 115/50 (71) 96 10/09/19 00:00 98.9 99 20 136/62 (86) 96 10/08/19 21:00 Room Air 10/08/19 20:00 88 18 121/52 (75) 96 Intake and Output 10/08/19 10/09/19 19:00 07:00 Intake Total 1397.5 ml Output Total 600 ml 300 ml Balance -600 ml 1097.5 ml Free Water 200 ml IV Total 477.5 ml Tube Feeding 720 ml Output Urine Total 600 ml 300 ml # Voids 1 # Bowel Movements 1 1 Laboratory Tests 10/09/19 04:45: Urine Color Yellow, Urine Appearance Slightly cloudy, Urine pH 6, Urine Specific [place] 1.010, Urine Protein 2+H, Urine Glucose (UA) 4+H, Urine Ketones Negative, Urine Blood 4+H, Urine Nitrite Negative, Urine Bilirubin Negative, Urine Urobilinogen Normal, Urine Leukocyte Esterase 3+H, Urine RBC 10- 15H, Urine WBC 30-40H, Urine Squamous Epithelial Cells Few, Urine Bacteria ModerateH, Urine Coarse Granular Casts 0-2H, Urine Yeast ManyH 10/09/19 05:27: White Blood Count 8.9, Red Blood Count 3.04L, Hemoglobin 8.7L, Hematocrit 26.3L , Mean Corpuscular Volume 87, Mean Corpuscular Hemoglobin 28.7, Mean Corpuscular Hemoglobin Concent 33.1, Red Cell Distribution Width 16.2H, Platelet Count 276, Mean Platelet Volume 6.3L, Neutrophils (%) (Auto) 74.8, Lymphocytes (%) (Auto) 17.2L, Monocytes (%) (Auto) 5.5, Eosinophils (%) (Auto) 1.6, Basophils (%) (Auto) 1.0, Sodium Level 130L, Potassium Level 4.2, Chloride Level 96L, Carbon Dioxide Level 23, Anion Gap 11, Blood Urea Nitrogen 15, Creatinine 0.9, Estimat Glomerular Filtration Rate 59.4, Glucose Level 271H, Calcium Level 7.7L, Total Bilirubin 0.2, Aspartate Amino Transf (AST/SGOT) 52H, Alanine Aminotransferase (ALT/SGPT) 22, Alkaline Phosphatase 121H, Total Protein 6.3L, Albumin 1.4L, Globulin 4.9, Albumin/Globulin Ratio 0.3L Height (Feet): 5 Height (Inches): 5.00 Weight (Pounds): 127 General Appearance: no apparent distress, lethargic Neck: supple Cardiovascular: normal rate, regular rhythm Respiratory/Chest: lungs clear, normal breath sounds Abdomen: non tender, soft Arnie Bee M.D. Oct 09, 2019 17:00
--- NOTE | 2019-10-09 19:31 | NUR ---
HAND-OFF: Report given to Loreta GONZALEZ RN.
--- NOTE | 2019-10-09 20:04 | NUR ---
NURSE NOTES: Patient in bed, awake, unable to make simple needs known. Skin is warm and dry to touch. IV site noted, iv fluid is infusing. Abdomen is soft and non distended. GT feeding noted. Bed in low and locked position, provided safe environment. Call light is at bedside. Will continue plan of care.
[2019-10-10] VITALS: BP 109/47
[2019-10-10 04:00] VITALS: BP 107/45
[2019-10-10] MEDS: Piperacillin/Tazobactam 3.375 GM in NS 110 ML IVPB SCH ×3 (06:10→22:28)
[2019-10-10] MEDS: NovoLOG Insulin Flexpen SUBQ SCH ×4 (06:12→22:35)
--- NOTE | 2019-10-10 06:25 | Hematology/Onc Progress Note ---
Assessment/Plan Assessment/Plan # Anemia of chronic disease due to underlying chronic medical issues, multifactorial v iron deficiency --> Anemia workup has been ordered, rule out gi bleed seen gi --> No evidence of hemolysis is noted, peripheral smear has been reviewed. --> Hgb goal >7. Transfuse prn. --> Epogen or iron at this time is not particularly indicated --> Medications have been reviewed --> low threshold for gi evaluation in case has occult + --> hgb 7.9-->7.5->6.7-->10.8-->10.1-->9.6-->8.7 --> OCULT BLOOD--> if + gi debra; negative x3 # Thrombocytosis is likely reactive from multiple wounds, esbl bactremeia --> currently improved --> abx per id --> likely to downtrend shortly # NSTEMI type 2 as per cards, Dr. Purdy --> Nl EF and no vegetations. On aspirin. Off statin for rhabdomyolysis # Hypertension. On Norvasc 5 --> sbp goal <140 # Acute on chronic diastolic CHF. Echo Nl EF. --> per Dr. Purdy # Urinary tract infection, on IV antibiotic. # 11/08 Strep Bacteremia with WBC 25K. Down to 6 K on Abx --> No endocarditis. ERIBERTO on 09/10/19 no vegetation. # Uncontrolled diabetes # DYpshagia s/p peg # Left toe ulcer. On iv Abx. --> per id # Dvt ppx heparin sq Appreciate consultation, brianne RN Subjective Constitutional: Denies: no symptoms, chills, fever, malaise, weakness, other HEENT: Denies: no symptoms, eye pain, blurred vision, tearing, double vision, ear pain, ear discharge, nose pain, nose congestion, throat pain, throat swelling, mouth pain, mouth swelling, other Gastrointestinal/Abdominal: Denies: no symptoms, abdomen distended, abdominal pain, black stools, tarry stools, blood in stool, constipated, diarrhea, difficulty swallowing, nausea, poor appetite, poor fluid intake, rectal bleeding , vomiting, other Genitourinary: Denies: no symptoms, burning, discharge, frequency, flank pain, hematuria, incontinence, pain, urgency, other Neurologic/Psychiatric: Denies: no symptoms, anxiety, depressed, emotional problems, headache, numbness, paresthesia, pre-existing deficit, seizure, tingling, tremors, weakness, other Endocrine: Denies: no symptoms, excessive sweating, flushing, intolerance to cold, intolerance to heat, increased hunger, increased thirst, increased urine, unexplained weight gain, unexplained weight loss, other Allergies: Coded Allergies: No Known Allergies (Unverified , 10/23/13) Subjective 09/26: no bleeding,labs reviewed, no night sweats, no hemolysis hgb is 7.5 09/27: hgb lower again, will order occult blood, dw pcp 09/29: labs have been reviewed, no bleeding or chills, hgb >10 09/30: no events, no bleeding, no night sweats, hgb better 10/01: confused, on abx, no acute events, PT for today 10/06: no bleeding or chills, no night sweats 10/07: labs have been reviewed, no major bleeding, cbc noted 10/08: temp 102.2 overnight, on room air, h/h stable, cxr to r/o pna 10/09: peg tube remains functional, no bleeding, on peg tube feeds, labs noted Objective Objective Current Medications Medications (Trade) Dose Ordered Sig/Krystin Route PRN Reason Start Time Stop Time Status Last Admin Dose Admin Acetaminophen (Tylenol) 650 mg Q6H PRN ORAL Mild Pain/Temp > 100.5 09/27/19 18:19 10/27/19 18:18 10/09/19 03:03 Collagenase (Santyl) 1 applic DAILY TOPIC 10/08/19 15:30 11/07/19 15:29 10/09/19 09:19 Dextrose (Dextrose 50%) 25 ml Q30M PRN IV Hypoglycemia 09/30/19 07:00 10/30/19 06:59 Dextrose (Dextrose 50%) 50 ml Q30M PRN IV Hypoglycemia 09/30/19 07:00 10/30/19 06:59 Insulin Aspart (NovoLOG) BEFORE MEALS AND HS SUBQ 09/30/19 11:30 10/30/19 11:29 10/10/19 06:12 Piperacillin Sod/ Tazobactam Sod 3.375 gm/Sodium Chloride 110 ml @ 27.5 mls/hr EVERY 8 HOURS IVPB 10/09/19 06:00 10/14/19 05:59 10/10/19 06:10 Sodium Chloride 1,000 ml @ 50 mls/hr Q20H IV 10/09/19 15:30 11/08/19 15:29 10/09/19 15:48 Vancomycin HCl (Vanco rx to dose) 1 ea DAILY PRN MISC Per rx protocol 10/09/19 04:30 11/08/19 04:29 Vancomycin HCl 1 gm/Sodium Chloride 275 ml @ 183.708 mls/hr Q24H IVPB 10/10/19 10:00 10/14/19 09:59 Last 24 Hour Vital Signs Date Time Temp Pulse Resp B/P (MAP) Pulse Ox O2 Delivery O2 Flow Rate FiO2 10/10/19 04:00 98.6 84 18 107/45 (65) 96 10/10/19 00:00 99.0 88 20 109/47 (67) 96 10/09/19 21:00 Room Air 10/09/19 20:00 98.8 84 20 105/51 (69) 96 10/09/19 16:00 97.7 78 18 110/60 (77) 97 10/09/19 12:00 97.3 73 18 106/54 (71) 98 10/09/19 09:00 Room Air 10/09/19 08:00 97.6 76 18 108/49 (68) 98 10/09/19 05:08 99.0 106/45 (65) 10/09/19 04:11 101.7 10/09/19 03:27 102.2 90 26 115/50 (71) 96 10/09/19 00:00 98.9 99 20 136/62 (86) 96 10/08/19 21:00 Room Air 10/08/19 20:00 88 18 121/52 (75) 96 10/08/19 15:53 98.0 92 18 137/66 (89) 98 10/08/19 11:48 98.3 97 18 124/59 (80) 97 10/08/19 09:00 Room Air 10/08/19 08:00 97.8 97 19 134/65 (88) 94 Intake and Output 10/09/19 10/10/19 19:00 07:00 Intake Total 2357.500 ml 397.5 ml Balance 2357.500 ml 397.5 ml Intake Oral 820 ml Free Water 300 ml IV Total 517.500 ml 157.5 ml Tube Feeding 720 ml 240 ml # Voids 4 # Bowel Movements 1 Labs Test 10/09/19 04:45 10/09/19 05:27 10/10/19 05:30 Urine Color Yellow Urine Appearance Slightly cloudy Urine pH 6 (4.5-8.0) Urine Specific [place] 1.010 (1.005-1.035) Urine Protein 2+ (NEGATIVE) Urine Glucose (UA) 4+ (NEGATIVE) Urine Ketones Negative (NEGATIVE) Urine Blood 4+ (NEGATIVE) Urine Nitrite Negative (NEGATIVE) Urine Bilirubin Negative (NEGATIVE) Urine Urobilinogen Normal MG/DL (0.0-1.0) Urine Leukocyte Esterase 3+ (NEGATIVE) Urine RBC 10-15 /HPF (0 - 2) Urine WBC 30-40 /HPF (0 - 2) Urine Squamous Epithelial Cells Few /LPF (NONE/OCC) Urine Bacteria Moderate /HPF (NONE) Urine Coarse Granular Casts 0-2 /LPF (NONE) Urine Yeast Many /HPF (NONE) White Blood Count 8.9 K/UL (4.8-10.8) Red Blood Count 3.04 M/UL (4.20-5.40) Hemoglobin 8.7 G/DL (12.0-16.0) Hematocrit 26.3 % (37.0-47.0) Mean Corpuscular Volume 87 FL (80-99) Mean Corpuscular Hemoglobin 28.7 PG (27.0-31.0) Mean Corpuscular Hemoglobin Concent 33.1 G/DL (32.0-36.0) Red Cell Distribution Width 16.2 % (11.6-14.8) Platelet Count 276 K/UL (150-450) Mean Platelet Volume 6.3 FL (6.5-10.1) Neutrophils (%) (Auto) 74.8 % (45.0-75.0) Lymphocytes (%) (Auto) 17.2 % (20.0-45.0) Monocytes (%) (Auto) 5.5 % (1.0-10.0) Eosinophils (%) (Auto) 1.6 % (0.0-3.0) Basophils (%) (Auto) 1.0 % (0.0-2.0) Sodium Level 130 MMOL/L (136-145) Potassium Level 4.2 MMOL/L (3.5-5.1) Chloride Level 96 MMOL/L (98-107) Carbon Dioxide Level 23 MMOL/L (21-32) Anion Gap 11 mmol/L (5-15) Blood Urea Nitrogen 15 mg/dL (7-18) Creatinine 0.9 MG/DL (0.55-1.30) Estimat Glomerular Filtration Rate 59.4 mL/min (>60) Glucose Level 271 MG/DL (74-106) Calcium Level 7.7 MG/DL (8.5-10.1) Total Bilirubin 0.2 MG/DL (0.2-1.0) Aspartate Amino Transf (AST/SGOT) 52 U/L (15-37) Alanine Aminotransferase (ALT/SGPT) 22 U/L (12-78) Alkaline Phosphatase 121 U/L (46-116) Total Protein 6.3 G/DL (6.4-8.2) Albumin 1.4 G/DL (3.4-5.0) Globulin 4.9 g/dL Albumin/Globulin Ratio 0.3 (1.0-2.7) Height (Feet): 5 Height (Inches): 5.00 Weight (Pounds): 127 Objective gen: confused pulm:: crackles b/l heent: nc, at neck supple cv: rrr, no mgr abd: soft, nt nd ++ peg ext: wounds on lower ext left toe ulceration covered dressing++ Nehemiah Randhawa MD Oct 10, 2019 06:25
--- NOTE | 2019-10-10 06:58 | NUR ---
HAND-OFF: Report given to ISHAAN Dozier.
[2019-10-10 07:17] LABS: BASOPHILS % (AUTO) 0.8 % (0.0-2.0); EOSINOPHILS % (AUTO) 2.2 % (0.0-3.0); HEMATOCRIT 25.5 % (37.0-47.0); HEMOGLOBIN 8.5 G/DL (12.0-16.0); LYMPHOCYTES % (AUTO) 16.7 % (20.0-45.0); MEAN CORPUSCULAR VOLUME 86 FL (80-99); MONOCYTES % (AUTO) 7.9 % (1.0-10.0); NEUTROPHILS % (AUTO) 72.4 % (45.0-75.0); PLATELET COUNT 252 K/UL (150-450); RED BLOOD COUNT 2.96 M/UL (4.20-5.40); RED CELL DISTRIBUTION WIDTH 16.4 % (11.6-14.8)
[2019-10-10 07:27] LABS: ALANINE AMINOTRANSFERASE 25 U/L (12-78); ALBUMIN 1.3 G/DL (3.4-5.0); ALBUMIN/GLOBULIN RATIO 0.3 (1.0-2.7); ALKALINE PHOSPHATASE 144 U/L (46-116); ANION GAP 7 mmol/L (5-15); ASPARTATE AMINO TRANSFERASE 61 U/L (15-37); BILIRUBIN,TOTAL 0.2 MG/DL (0.2-1.0); BLOOD UREA NITROGEN 19 mg/dL (7-18); CALCIUM 7.9 MG/DL (8.5-10.1); CARBON DIOXIDE 28 MMOL/L (21-32); CHLORIDE 99 MMOL/L (98-107); CREATININE 0.9 MG/DL (0.55-1.30); POTASSIUM 4.6 MMOL/L (3.5-5.1); SODIUM 134 MMOL/L (136-145)
--- NOTE | 2019-10-10 07:44 | NUR ---
NURSE NOTES: Patient non-verbal; on room air, no sing of distress and shortness of breath; Buckner in place, drains yellow urine; Tube feeding Glucerna 1.2 running 60cc, no residual; head of the bed elevated, side rails up x2, breaks engaged, call light within reach; IV Right Upper Arm 22G NS 50cc running; will keep monitoring.
[2019-10-10 08:00] VITALS: BP 105/45
--- NOTE | 2019-10-10 09:34 | Surgery Progress Note ---
Surgery Progress Note Subjective Additional Comments stable dressings okay wounds stable Objective Last 24 Hour Vital Signs Date Time Temp Pulse Resp B/P (MAP) Pulse Ox O2 Delivery O2 Flow Rate FiO2 10/10/19 08:00 98.2 84 20 105/45 (65) 96 10/10/19 04:00 98.6 84 18 107/45 (65) 96 10/10/19 00:00 99.0 88 20 109/47 (67) 96 10/09/19 21:00 Room Air 10/09/19 20:00 98.8 84 20 105/51 (69) 96 10/09/19 16:00 97.7 78 18 110/60 (77) 97 10/09/19 12:00 97.3 73 18 106/54 (71) 98 I&O Intake and Output 10/09/19 10/10/19 19:00 07:00 Intake Total 2357.500 ml 1345.0 ml Output Total 600 ml Balance 2357.500 ml 745.0 ml Intake Oral 820 ml Free Water 300 ml 250 ml IV Total 517.500 ml 435.0 ml Tube Feeding 720 ml 660 ml Output Urine Total 600 ml # Voids 4 # Bowel Movements 1 Dressing: other Wound: other Drains: other Cardiovascular: RSR Respiratory: decreased breath sounds Abdomen: soft, non-tender, present bowel sounds Extremities: no cyanosis, other Laboratory Tests Test 10/10/19 05:30 10/10/19 05:50 Stool Occult Blood Pending White Blood Count 10.0 K/UL (4.8-10.8) Red Blood Count 2.96 M/UL (4.20-5.40) L Hemoglobin 8.5 G/DL (12.0-16.0) L Hematocrit 25.5 % (37.0-47.0) L Mean Corpuscular Volume 86 FL (80-99) Mean Corpuscular Hemoglobin 28.8 PG (27.0-31.0) Mean Corpuscular Hemoglobin Concent 33.4 G/DL (32.0-36.0) Red Cell Distribution Width 16.4 % (11.6-14.8) H Platelet Count 252 K/UL (150-450) Mean Platelet Volume 6.3 FL (6.5-10.1) L Neutrophils (%) (Auto) 72.4 % (45.0-75.0) Lymphocytes (%) (Auto) 16.7 % (20.0-45.0) L Monocytes (%) (Auto) 7.9 % (1.0-10.0) Eosinophils (%) (Auto) 2.2 % (0.0-3.0) Basophils (%) (Auto) 0.8 % (0.0-2.0) Sodium Level 134 MMOL/L (136-145) L Potassium Level 4.6 MMOL/L (3.5-5.1) Chloride Level 99 MMOL/L (98-107) Carbon Dioxide Level 28 MMOL/L (21-32) Anion Gap 7 mmol/L (5-15) Blood Urea Nitrogen 19 mg/dL (7-18) H Creatinine 0.9 MG/DL (0.55-1.30) Estimat Glomerular Filtration Rate 59.4 mL/min (>60) Glucose Level 213 MG/DL (74-106) H Calcium Level 7.9 MG/DL (8.5-10.1) L Total Bilirubin 0.2 MG/DL (0.2-1.0) Aspartate Amino Transf (AST/SGOT) 61 U/L (15-37) H Alanine Aminotransferase (ALT/SGPT) 25 U/L (12-78) Alkaline Phosphatase 144 U/L (46-116) H Total Protein 6.4 G/DL (6.4-8.2) Albumin 1.3 G/DL (3.4-5.0) L Globulin 5.1 g/dL Albumin/Globulin Ratio 0.3 (1.0-2.7) L Plan Problems: (1) Decubitus skin ulcer Assessment & Plan: Base of sacral wound is 90% soft necrosis with surrounding moist erythematous margins.Wound is malodorous Periwound is erythematous without induration or elevation in skin temp.(L)8cm x (W)10.5cm. Darker skin tone noted to R and L ischium. Unstageable pressure injury noted L hip Base of wound 90% necrotic cap that is semi-detached at edges,Oozing small amt brown exudate. Remaining 10% of wound is moist and martha . Edges are erythematous and flat.Wound is malodorous. Periwound is erythematous and indurated. No elevation in skin temp. (L)2.5cm x ( W)1.9cm. Two small dark skin pigmentations R Hip that are in close proximity. NO erythema or induration noted. L foot edematous. Dorsal aspect of L foot is dusky. Necrotic ulcer L hallux /L 1st metatarsal (L)3.7cm x (W)5.2cm.Edges are moist and erythematous. Wound is malodorous. Small amt brown exudate noted. Periwound including L st metatarsal is dusky and fluctuant. L heel is fluctuant with non-blanching erythema. Stable dry eschar noted to distal /lateral R foot. Periwound without erythema, induration or fluctuance.(L)0.4cm x (W)0.3cm. Stable dry eschar noted to lateral R 5th metatarsal.(L)0.3cm x (W)0.3cm. NO erythema,induration or fluctuance periwound. R heel is boggy with non-blanching erythema. change Tx orders for Sacrum and L hip to Santyl Moist gauze daily and prn. Primary nurse is aware and orders changed. left foot improving no drainage now Unstageable pressure injury Sacrum. Base of wound has 80% mixed soft necrosis and slough ,20%pink granulation.Macerated borders.(L)9cm x (W)8.5cm. Periwound skin tone is dark without erythema or induration. Resolving pressure injury L trochanter. [place] granulation at base of wound with dry pink epithelial borders. (L)2.2cm x (W)3.3cm. No odor or exudate noted. No evidence of skin breakdown periwound. Unstageable pressure injury L hallux.. Base of wound 100% necrotic with semidetached borders that are erythmatous and moist.(L)4.8cm x (W)5.7cm. Wound is malodorous. Periwound is fluctuant. Dorsal aspect of L foot is less dusky in comparison to last wound assessment. L 2nd metatarsal dusky but improving Both heels are soft but blanchable. eschar on left foot off now wound bed with good tissue no drainage minimal slough cross hatched sacrum foot improved plan to stop santyl soon unstageable Sacral Pressure Injury resolving. Wound is smaller in size. 90% Loose fibrinous slough with surrounding 10% beefy red granulation at base of wound. Edges adherent to base of wound. Mild odor noted.Small amt sanguineous exudate. No erythema or evidence of further skin breakdown periwound. (L)6.6cm x (W)7.3cm. R trochanteric pressure injury has resolved. Hyperpigmentation noted. L trochanter is blanchable with small dark skin pigmentation noted. Unstageable pressure injury L hallux. Wound is malodorous. Base of wound is 100 % soft necrosis and erythematous borders. Small amt brown exudate noted. (L) 4.3cm x (W)5.7cm. Stable dry brown eschar L lateral malleolus. No erythema or fluctuance periwound. Wound Tx are effective and continued as ordered. All wound prevention protocols continued as care-planned Tx.Plan: Cleanse Sacral wound with Saline. Apply Nickel thick Layer Santyl with Saline moistened Gauze. Apply Moisture Barrier Paste periwound. Cover with Optifoam drsg. Daily and prn. Cleanse L hip wound with Saline. Apply Nickel Thick layer of Santyl with Saline Moistened Gauze. Apply Moisture Barrier Paste periwound. Cover with Optifoam drsg.Daily and prn. Cleanse Wound L Hallux with Saline. Apply Nickel thick Layer Santyl with Saline moistened gauze. Cover with ABD Pad and wrap with Kerlix Daily and prn. Apply Cavilon Skin Barrier to Distal/Lateral R foot /R 5th metatarsal Daily. Apply Cavilon SKin Barrier to both heels. Cover each heel with Optifoam drsg. Change every 7 days and prn. Apply Cavilon Skin Barrier to R hip. Cover with Optifoam drsg. Change every 7 days and prn. APM/YURIY Mattress overlay. Reposition at least every 2hours or as tolerated. Off-load heels with pillow. (2) Sepsis Assessment & Plan: Leukocytosis, abnormal labs, tachycardic, per report fevers UA identified urosepsis bacteremic leukocytosis resolved improving overall anemia fevers resolved On antibiotics as per infectious disease Trend labs Okay for diet A.m. labs Wounds unlikely etiology of sepsis as they are chronic and do not look actively infected discussed with medical teams discussed with podiatry - orders placed by no note identified. as per podiatry IV abx 6 weeks over amputation. plan for abx d/c planning cont abx oral for d/c outpatient wound care follow up We will follow with recommendations thank you for let me participate in patient' s care Darrius Miller Oct 10, 2019 09:34
[2019-10-10] MEDS: Vancomycin 1 GM in NS 275 ML IVPB SCH (09:58)
--- NOTE | 2019-10-10 10:39 | General Progress Note ---
Assessment/Plan Problem List: (1) Anemia ICD Codes: D64.9 - Anemia, unspecified SNOMED: 488805606 (2) PAD (peripheral artery disease) ICD Codes: I73.9 - Peripheral vascular disease, unspecified SNOMED: 325680057 (3) Urinary tract infection due to ESBL Klebsiella ICD Codes: N39.0 - Urinary tract infection, site not specified; B96.89 - Other specified bacterial agents as the cause of diseases classified elsewhere SNOMED: 748740962, 902369346864500 (4) Diabetes mellitus with hyperglycemia ICD Codes: E11.65 - Type 2 diabetes mellitus with hyperglycemia SNOMED: 98919057, 08818242 (5) Decubitus skin ulcer ICD Codes: L89.90 - Pressure ulcer of unspecified site, unspecified stage SNOMED: 557281237 (6) HTN (hypertension) ICD Codes: I10 - HTN (hypertension) SNOMED: 15218261 (7) FTT (failure to thrive) in adult ICD Codes: R62.7 - Adult failure to thrive SNOMED: 463992238 Status: stable Assessment/Plan: abx per ID wound care fu labs s/p PEG placement GTF monitor for residuals slowly dropping H&H>> repeat cbs, check stool ob>>>> neg Subjective ROS Limited/Unobtainable: No Allergies: Coded Allergies: No Known Allergies (Unverified , 10/23/13) Objective Last 24 Hour Vital Signs Date Time Temp Pulse Resp B/P (MAP) Pulse Ox O2 Delivery O2 Flow Rate FiO2 10/10/19 09:00 Room Air 10/10/19 08:00 98.2 84 20 105/45 (65) 96 10/10/19 04:00 98.6 84 18 107/45 (65) 96 10/10/19 00:00 99.0 88 20 109/47 (67) 96 10/09/19 21:00 Room Air 10/09/19 20:00 98.8 84 20 105/51 (69) 96 10/09/19 16:00 97.7 78 18 110/60 (77) 97 10/09/19 12:00 97.3 73 18 106/54 (71) 98 Intake and Output 10/09/19 10/10/19 19:00 07:00 Intake Total 2357.500 ml 1345.0 ml Output Total 600 ml Balance 2357.500 ml 745.0 ml Intake Oral 820 ml Free Water 300 ml 250 ml IV Total 517.500 ml 435.0 ml Tube Feeding 720 ml 660 ml Output Urine Total 600 ml # Voids 4 # Bowel Movements 1 Laboratory Tests 10/10/19 05:30: Stool Occult Blood [Pending] 10/10/19 05:50: White Blood Count 10.0, Red Blood Count 2.96L, Hemoglobin 8.5L, Hematocrit 25.5L , Mean Corpuscular Volume 86, Mean Corpuscular Hemoglobin 28.8, Mean Corpuscular Hemoglobin Concent 33.4, Red Cell Distribution Width 16.4H, Platelet Count 252, Mean Platelet Volume 6.3L, Neutrophils (%) (Auto) 72.4, Lymphocytes (%) (Auto) 16.7L, Monocytes (%) (Auto) 7.9, Eosinophils (%) (Auto) 2.2, Basophils (%) (Auto) 0.8, Sodium Level 134L, Potassium Level 4.6, Chloride Level 99, Carbon Dioxide Level 28, Anion Gap 7, Blood Urea Nitrogen 19H, Creatinine 0.9, Estimat Glomerular Filtration Rate 59.4, Glucose Level 213H, Calcium Level 7.9L, Total Bilirubin 0.2, Aspartate Amino Transf (AST/SGOT) 61H, Alanine Aminotransferase (ALT/SGPT) 25, Alkaline Phosphatase 144H, Total Protein 6.4, Albumin 1.3L, Globulin 5.1, Albumin/Globulin Ratio 0.3L Height (Feet): 5 Height (Inches): 5.00 Weight (Pounds): 127 General Appearance: no apparent distress EENT: normal ENT inspection Neck: supple Cardiovascular: normal rate Respiratory/Chest: decreased breath sounds Abdomen: normal bowel sounds, non tender, soft Extremities: non-tender Nelson Phoenix MD Oct 10, 2019 10:39
--- NOTE | 2019-10-10 11:03 | Cardiac Electrophysiology PN ---
Assessment/Plan Assessment/Plan 1. NSTEMI type 2 due to renal failure with creatinine 1.7. Troponins low and flat. No CP. ECG LBBB Nl EF and no vegetations. On aspirin. Off statin for rhabdomyolysis. Off beta lisbeth for bradycardia 2. Hypertension. On Norvasc 5 daily 3. LBBB 4. Nonsustained VT.Nl EF 5. Acute on chronic diastolic CHF. Echo Nl EF. 6. Urinary tract infection, on IV antibiotic. 7. 4/4 Strep Bacteremia with WBC 25K on Abx No endocarditis. ERIBERTO on 09/10/19 no vegetation. 8. S/P Renal failure. 9. Uncontrolled diabetes 10. Left toe ulcer. On Abx per ID and podiatry 11. Malnutrition. S/P PEG by Dr Phoenix 10/07/19 CLEM RN Subjective Subjective Comfortable in NAD. PEG feeding ongoing Objective Last 24 Hour Vital Signs Date Time Temp Pulse Resp B/P (MAP) Pulse Ox O2 Delivery O2 Flow Rate FiO2 10/10/19 09:00 Room Air 10/10/19 08:00 98.2 84 20 105/45 (65) 96 10/10/19 04:00 98.6 84 18 107/45 (65) 96 10/10/19 00:00 99.0 88 20 109/47 (67) 96 10/09/19 21:00 Room Air 10/09/19 20:00 98.8 84 20 105/51 (69) 96 10/09/19 16:00 97.7 78 18 110/60 (77) 97 10/09/19 12:00 97.3 73 18 106/54 (71) 98 Intake and Output 10/09/19 10/10/19 19:00 07:00 Intake Total 2357.500 ml 1345.0 ml Output Total 600 ml Balance 2357.500 ml 745.0 ml Intake Oral 820 ml Free Water 300 ml 250 ml IV Total 517.500 ml 435.0 ml Tube Feeding 720 ml 660 ml Output Urine Total 600 ml # Voids 4 # Bowel Movements 1 Laboratory Tests Test 10/10/19 05:30 10/10/19 05:50 Stool Occult Blood Pending White Blood Count 10.0 K/UL (4.8-10.8) Red Blood Count 2.96 M/UL (4.20-5.40) L Hemoglobin 8.5 G/DL (12.0-16.0) L Hematocrit 25.5 % (37.0-47.0) L Mean Corpuscular Volume 86 FL (80-99) Mean Corpuscular Hemoglobin 28.8 PG (27.0-31.0) Mean Corpuscular Hemoglobin Concent 33.4 G/DL (32.0-36.0) Red Cell Distribution Width 16.4 % (11.6-14.8) H Platelet Count 252 K/UL (150-450) Mean Platelet Volume 6.3 FL (6.5-10.1) L Neutrophils (%) (Auto) 72.4 % (45.0-75.0) Lymphocytes (%) (Auto) 16.7 % (20.0-45.0) L Monocytes (%) (Auto) 7.9 % (1.0-10.0) Eosinophils (%) (Auto) 2.2 % (0.0-3.0) Basophils (%) (Auto) 0.8 % (0.0-2.0) Sodium Level 134 MMOL/L (136-145) L Potassium Level 4.6 MMOL/L (3.5-5.1) Chloride Level 99 MMOL/L (98-107) Carbon Dioxide Level 28 MMOL/L (21-32) Anion Gap 7 mmol/L (5-15) Blood Urea Nitrogen 19 mg/dL (7-18) H Creatinine 0.9 MG/DL (0.55-1.30) Estimat Glomerular Filtration Rate 59.4 mL/min (>60) Glucose Level 213 MG/DL (74-106) H Calcium Level 7.9 MG/DL (8.5-10.1) L Total Bilirubin 0.2 MG/DL (0.2-1.0) Aspartate Amino Transf (AST/SGOT) 61 U/L (15-37) H Alanine Aminotransferase (ALT/SGPT) 25 U/L (12-78) Alkaline Phosphatase 144 U/L (46-116) H Total Protein 6.4 G/DL (6.4-8.2) Albumin 1.3 G/DL (3.4-5.0) L Globulin 5.1 g/dL Albumin/Globulin Ratio 0.3 (1.0-2.7) L Microbiology Date/Time Source Procedure Growth Status 10/09/19 04:45 Urine,Clean Catch Urine Culture - Preliminary Gram Negative Bacillus 1 Resulted Objective HEAD AND NECK: No JVD LUNGS: Clear. CARDIOVASCULAR: Regular S1 and S2 with no gallop or murmur. ABDOMEN: Soft. EXTREMITIES: Left toe ulcer covered with dressing Luis Purdy MD Oct 10, 2019 11:03
--- NOTE | 2019-10-10 11:17 | General Progress Note ---
Assessment/Plan Problem List: (1) Urinary retention ICD Codes: R33.9 - Retention of urine, unspecified SNOMED: 237677324 (2) Renal insufficiency ICD Codes: N28.9 - Disorder of kidney and ureter, unspecified SNOMED: 930928048, 035424275 (3) NSTEMI (non-ST elevated myocardial infarction) ICD Codes: I21.4 - Non-ST elevation (NSTEMI) myocardial infarction SNOMED: 84294170, 983860782 (4) UTI (lower urinary tract infection) (5) Diabetes ICD Codes: E11.9 - Diabetes SNOMED: 25946096 (6) Parkinson disease ICD Codes: G20 - Parkinson disease SNOMED: 90747782 (7) Weakness generalized ICD Codes: R53.1 - Asthenia SNOMED: 82516414 (8) Sepsis (9) HTN (hypertension) ICD Codes: I10 - HTN (hypertension) SNOMED: 07152231 (10) Frailty ICD Codes: R54 - Frailty SNOMED: 571447001 (11) Dehydration (12) Urinary obstruction ICD Codes: N13.9 - Obstructive and reflux uropathy, unspecified SNOMED: 4896381 (13) ATN (acute tubular necrosis) ICD Codes: N17.0 - Acute kidney failure with tubular necrosis SNOMED: 87145346 (14) CVA (cerebral vascular accident) ICD Codes: I63.9 - Cerebral infarction, unspecified SNOMED: 460836010 Status: stable Assessment/Plan: 84-year-old lady from [facility] with history of hypertension, uncontrolled diabetes, and Parkinson disease, who was brought to the emergency room by family member for altered mental status and weakness. #Osteomyelitis left foot/ 1st toe #Severe PVD #Severe sepsis #Group B strep, ESBL UTI and bacteremia #Fever - new 3/4 - s/p 42 days of vancomycin, cefepime, flagyl - vanc/zosyn restarted given fever (3/4 -) - f/u repeat BCx (3/4 -) - ERIBERTO negative for vegetation. surveillance cultures are negative - wound culture right foot with normal maximino but likely polymicrobial infection - monitor labs, recent chest x-ray negative - s/p diflucan (for fungal uti) - ID following -General surgery consult appreciated - Podiatry consult appreciated #Poor oral intake - calorie count reviewed with RD - s/p PEG (10/07/2019) - Tube feeds to be started. -Nutrition consult for bolus feeding recs. Family to be taught on bolus feed, then discharge home, given no insurance. (d/w CM) #Anemia, rule out acute blood loss. rule out GI bleed - improved - stool OB negative - appreciate Heme/onc recs - s/p 1 unit PRBC 09/27/19. Consent obtained from family - trend CBC #Hypokalemia #Hypernatremia resolved #Hypophosphatemia Replace as needed Continue to monitor #Uncontrolled DM II - A1c 9-->insulin sliding scale ac/hs, resistant scale, fsbg controlled #Parkinson's disease #Dementia - c/w PD regimen - supportive care - delirium precautions #NSTEMI type II 2/2 renal failure #HFpEF #HTN #Sinus dorian - resolved -d/c heparin gtt/acs protocol per cards, pt w/no chest pain, stable troponin. -Continue ASA -Cont. to hold statin due to rhabdomyolysis. -Decreased Lopressor from 25 mg to 12.5 mg bid due to low heart rate, then d/c on 08/29 for bradycardia, now resolved off Lopressor - s/p lasix 40 mg BID -Echocardiogram Nl EF -continue amlodipine 5 daily - cardiology consult appreciated #OEWN due to ATN - resolved avoid nephrotoxin medications #stage II sacral decubitus ulcer Appreciate wound consult Wound care Buck[place] in place for healing of wound Pain regimen #Protein calorie malnutrition -TF as above. Time spent on patient care, 35 mins, >50% on counseling and coordination of care. Time of encounter doesn't reflect time of encounter. Subjective Date patient seen: Oct 10, 2019 Time patient seen: 10:50 Constitutional: Denies: no symptoms, chills, diaphoresis, fever, malaise, weakness, other HEENT: Denies: no symptoms, eye pain, blurred vision, tearing, double vision, ear pain, ear discharge, nose pain, nose congestion, throat pain, throat swelling, mouth pain, mouth swelling, other Cardiovascular: Denies: no symptoms, chest pain, edema, irregular heart rate, lightheadedness, palpitations, syncope, other Respiratory: Denies: no symptoms, cough, orthopnea, shortness of breath, SOB with excertion, SOB at rest, sputum, stridor, wheezing, other Gastrointestinal/Abdominal: Denies: no symptoms, abdomen distended, abdominal pain, black stools, tarry stools, blood in stool, constipated, diarrhea, difficulty swallowing, nausea, poor appetite, poor fluid intake, rectal bleeding , vomiting, other Genitourinary: Denies: no symptoms, burning, discharge, frequency, flank pain, hematuria, incontinence, pain, urgency, other Neurologic/Psychiatric: Denies: no symptoms, anxiety, depressed, emotional problems, headache, numbness, paresthesia, pre-existing deficit, seizure, tingling, tremors, weakness, other Endocrine: Denies: no symptoms, excessive sweating, flushing, intolerance to cold, intolerance to heat, increased hunger, increased thirst, increased urine, unexplained weight gain, unexplained weight loss, other Hematologic/Lymphatic: Denies: no symptoms, anemia, easy bleeding, easy bruising, other Allergies: Coded Allergies: No Known Allergies (Unverified , 10/23/13) Subjective resting comfortably in bed. denies any issues Objective Last 24 Hour Vital Signs Date Time Temp Pulse Resp B/P (MAP) Pulse Ox O2 Delivery O2 Flow Rate FiO2 10/10/19 09:00 Room Air 10/10/19 08:00 98.2 84 20 105/45 (65) 96 10/10/19 04:00 98.6 84 18 107/45 (65) 96 10/10/19 00:00 99.0 88 20 109/47 (67) 96 10/09/19 21:00 Room Air 10/09/19 20:00 98.8 84 20 105/51 (69) 96 10/09/19 16:00 97.7 78 18 110/60 (77) 97 10/09/19 12:00 97.3 73 18 106/54 (71) 98 Intake and Output 10/09/19 10/10/19 19:00 07:00 Intake Total 2357.500 ml 1345.0 ml Output Total 600 ml Balance 2357.500 ml 745.0 ml Intake Oral 820 ml Free Water 300 ml 250 ml IV Total 517.500 ml 435.0 ml Tube Feeding 720 ml 660 ml Output Urine Total 600 ml # Voids 4 # Bowel Movements 1 Laboratory Tests 10/10/19 05:30: Stool Occult Blood [Pending] 10/10/19 05:50: White Blood Count 10.0, Red Blood Count 2.96L, Hemoglobin 8.5L, Hematocrit 25.5L , Mean Corpuscular Volume 86, Mean Corpuscular Hemoglobin 28.8, Mean Corpuscular Hemoglobin Concent 33.4, Red Cell Distribution Width 16.4H, Platelet Count 252, Mean Platelet Volume 6.3L, Neutrophils (%) (Auto) 72.4, Lymphocytes (%) (Auto) 16.7L, Monocytes (%) (Auto) 7.9, Eosinophils (%) (Auto) 2.2, Basophils (%) (Auto) 0.8, Sodium Level 134L, Potassium Level 4.6, Chloride Level 99, Carbon Dioxide Level 28, Anion Gap 7, Blood Urea Nitrogen 19H, Creatinine 0.9, Estimat Glomerular Filtration Rate 59.4, Glucose Level 213H, Calcium Level 7.9L, Total Bilirubin 0.2, Aspartate Amino Transf (AST/SGOT) 61H, Alanine Aminotransferase (ALT/SGPT) 25, Alkaline Phosphatase 144H, Total Protein 6.4, Albumin 1.3L, Globulin 5.1, Albumin/Globulin Ratio 0.3L Height (Feet): 5 Height (Inches): 5.00 Weight (Pounds): 127 General Appearance: no apparent distress Neck: supple Cardiovascular: normal rate, regular rhythm Respiratory/Chest: lungs clear, normal breath sounds Abdomen: non tender, soft Arnie Bee M.D. Oct 10, 2019 11:17
[2019-10-10 12:00] VITALS: BP 110/51
--- NOTE | 2019-10-10 15:49 | NUR ---
CASE MANAGEMENT:REVIEW SI;URINARY RETENTION. UTI. URINARY OBSTRUCTION. ACUTE TUBULAR NECROSIS. 101.5 92 20 105/45 96% ON RA H/H 8.5/25.5 NA 134 BUN 19 BG 213 AST 61 IS; VANCOMYCIN IV Q24 HRS ZOSYN IV Q8 HRS IVF NS @ 50 ML/HR SANTYL TOP QD MED SURG STATUS DCP; DC PENDING OFFICIAL DISCHARGE ORDER FAMILY EDUCATION FOR GT BOLUS FEEDINGS
[2019-10-10 16:00] VITALS: BP 115/47
--- NOTE | 2019-10-10 16:55 | NUR ---
NUCLEAR POWER REACTOR OPERATOR NOTES SPOKE WITH PT'S DAUGHTER FELIPE MADE AWARE OF DCP. DAUGHTER IS HERE TO LEARN HOW TO PROVIDE BOLUS FEEDINGS. EXPLAIN TO THE DAUGHTER PT MEDICAL IS STILL PENDING. EXPLAINED TO DAUGHTER I WILL PROVIDE 5 DAYS WORTH OF FEEDINGS THEN SHE CAN PURCHASE THE FEEDING AT A MEDICAL SUPPLY STORE OR [employer]. FELIPE VERBALIZED UNDERSTANDING OF TEACHING. ALSO PROVIDED [facility] FOR FOLLOW UP.
--- NOTE | 2019-10-10 19:15 | Infectious Diseases Prog Note ---
Assessment/Plan Assessment/Plan ASSESSMENT AND PLAN: 1. gram negative uti/pyelonephritis, sepsis, fevers, hx esbl uti s/p tx streptococcus agalactiae - group b bacteremia, ? endocarditis, ERIBERTO negative for vegetation - s/p abx left foot great toe/1st toe wound infection - MRI c/w osteomyelitis, elevated sed rate - s/p 6 weeks antibiotics - zosyn and vancomycin for now - f/u on urine culture ID and blood culture - chest x-ray - negative - monitor labs, monitor fevers 2. Acute kidney injury with elevated creatinine. 3. History of diabetes. 4. for feeding tube for decreased oral intake 5. Blood pressure treatment per primary care team and diabetes treatment per primary care team and consultants. 6. Parkinson's. 7. Dementia, weakness 8. The patient does have also elevated troponin. Cardiology follow-up. 9. MAR was noted. 10. Case was discussed with RN. 11. No known allergies. 12. Social history is negative. 13. Family history is noncontributory. 14. Continue treatment per primary consultants. 15. Orders were noted and entered. Subjective Constitutional: Denies: fever HEENT: Denies: congestion Respiratory: Denies: shortness of breath Cardiovascular: Denies: chest pain Gastrointestinal/Abdominal: Denies: nausea, vomiting, diarrhea Genitourinary: Reports: other - + arnold Skin: Reports: other - wounds - covered ; Denies: rash Musculoskeletal: Denies: pain Allergies: Coded Allergies: No Known Allergies (Unverified , 10/23/13) Objective Vital Signs Last 24 Hour Vital Signs Date Time Temp Pulse Resp B/P (MAP) Pulse Ox O2 Delivery O2 Flow Rate FiO2 10/10/19 16:00 98.9 73 19 115/47 (69) 97 10/10/19 13:06 99.0 10/10/19 12:00 101.5 92 20 110/51 (70) 96 10/10/19 09:00 Room Air 10/10/19 08:00 98.2 84 20 105/45 (65) 96 10/10/19 04:00 98.6 84 18 107/45 (65) 96 10/10/19 00:00 99.0 88 20 109/47 (67) 96 10/09/19 21:00 Room Air 10/09/19 20:00 98.8 84 20 105/51 (69) 96 Height (Feet): 5 Height (Inches): 5.00 Weight (Pounds): 127 General Appearance: no acute distress HEENT: normocephalic, atraumatic, anicteric, mucous membranes moist Respiratory/Chest: lungs clear, normal breath sounds, no respiratory distress, no accessory muscle use Cardiovascular: normal rate, regular rhythm, no gallop/murmur, no JVD Abdomen: normal bowel sounds, soft, non tender, no organomegaly, non distended Genitourinary: other - + arnold - urine cloudy Extremities: other - wounds - covered Skin: no rash Neurologic/Psychiatric: technical photographer II-XII grossly normal, 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 Pleural space: Unremarkable. No pneumothorax. Heart: Borderline cardiomegaly, potentially exaggerated by portable technique. Mediastinum: Calcified aorta. Bones/joints: Osteopenia. Degenerative changes. IMPRESSION: Mild vascular congestion CT abdomen: Impression: Anasarca, as described, with generalized edema of subcutaneous abdominal fat, moderate-sized bilateral pleural effusions, pulmonary interstitial and airspace edema Compressive atelectasis of the lower lobes due to the pleural fluid Evidence of rectal fecal impaction and possible stercoral proctitis Pessary, likely malpositioned, as described. There is evidence of bladder floor relaxation despite the pessary Dilated extrahepatic bile ducts. Most likely related to patient's age as no downstream obstructive lesion is demonstrated. However, correlation with liver function tests is recommended, with consideration for MRCP if clinically indicated Questionable slight retrococcygeal decubitus changes. Correlate with findings Other findings as noted, including evidence of prior renal cortical scarring, Arnold catheter, uterine arcuate artery calcifications Chest x-ray - 09/05/19 - Indication: Cough Technique: One view of the chest Comparison: 08/24/2019 Findings: There is increased interstitial edema. There is evidence of left perihilar airspace disease There is suggestion of trace bilateral pleural effusions. The heart size is upper limits normal. Impression: Increased interstitial edema, since prior exam 08/24/2019 Suspect left perihilar consolidation Small bilateral pleural effusions Chest x-ray - 09/07/19 - IMPRESSION: 1. Interval mild improvement in the diffusely increased interstitial markings compared to the prior exam, suggesting improved pulmonary interstitial edema. 2. Linear atelectasis at the periphery of the left mid lung. 3. Possible small left pleural effusion. MRI left foot: IMPRESSION: Evidence of acute osteomyelitis involving the hallux as described above. Cellulitis. Microbiology Date/Time Source Procedure Growth Status 10/09/19 04:45 Urine,Clean Catch Urine Culture - Preliminary Gram Negative Bacillus 1 Resulted Laboratory Tests Test 10/10/19 05:30 10/10/19 05:50 Stool Occult Blood Negative (NEGATIVE) White Blood Count 10.0 K/UL (4.8-10.8) Red Blood Count 2.96 M/UL (4.20-5.40) L Hemoglobin 8.5 G/DL (12.0-16.0) L Hematocrit 25.5 % (37.0-47.0) L Mean Corpuscular Volume 86 FL (80-99) Mean Corpuscular Hemoglobin 28.8 PG (27.0-31.0) Mean Corpuscular Hemoglobin Concent 33.4 G/DL (32.0-36.0) Red Cell Distribution Width 16.4 % (11.6-14.8) H Platelet Count 252 K/UL (150-450) Mean Platelet Volume 6.3 FL (6.5-10.1) L Neutrophils (%) (Auto) 72.4 % (45.0-75.0) Lymphocytes (%) (Auto) 16.7 % (20.0-45.0) L Monocytes (%) (Auto) 7.9 % (1.0-10.0) Eosinophils (%) (Auto) 2.2 % (0.0-3.0) Basophils (%) (Auto) 0.8 % (0.0-2.0) Sodium Level 134 MMOL/L (136-145) L Potassium Level 4.6 MMOL/L (3.5-5.1) Chloride Level 99 MMOL/L (98-107) Carbon Dioxide Level 28 MMOL/L (21-32) Anion Gap 7 mmol/L (5-15) Blood Urea Nitrogen 19 mg/dL (7-18) H Creatinine 0.9 MG/DL (0.55-1.30) Estimat Glomerular Filtration Rate 59.4 mL/min (>60) Glucose Level 213 MG/DL (74-106) H Calcium Level 7.9 MG/DL (8.5-10.1) L Total Bilirubin 0.2 MG/DL (0.2-1.0) Aspartate Amino Transf (AST/SGOT) 61 U/L (15-37) H Alanine Aminotransferase (ALT/SGPT) 25 U/L (12-78) Alkaline Phosphatase 144 U/L (46-116) H Total Protein 6.4 G/DL (6.4-8.2) Albumin 1.3 G/DL (3.4-5.0) L Globulin 5.1 g/dL Albumin/Globulin Ratio 0.3 (1.0-2.7) L Current Medications Medications (Trade) Dose Ordered Sig/Krystin Route PRN Reason Start Time Stop Time Status Last Admin Dose Admin Acetaminophen (Tylenol) 650 mg Q6H PRN ORAL Mild Pain/Temp > 100.5 09/27/19 18:19 10/27/19 18:18 10/10/19 12:36 Collagenase (Santyl) 1 applic DAILY TOPIC 10/08/19 15:30 11/07/19 15:29 10/10/19 09:20 Dextrose (Dextrose 50%) 25 ml Q30M PRN IV Hypoglycemia 09/30/19 07:00 10/30/19 06:59 Dextrose (Dextrose 50%) 50 ml Q30M PRN IV Hypoglycemia 09/30/19 07:00 10/30/19 06:59 Insulin Aspart (NovoLOG) BEFORE MEALS AND HS SUBQ 09/30/19 11:30 10/30/19 11:29 10/10/19 17:04 Piperacillin Sod/ Tazobactam Sod 3.375 gm/Sodium Chloride 110 ml @ 27.5 mls/hr EVERY 8 HOURS IVPB 10/09/19 06:00 10/14/19 05:59 10/10/19 15:01 Sodium Chloride 1,000 ml @ 50 mls/hr Q20H IV 10/09/19 15:30 11/08/19 15:29 10/10/19 15:02 Vancomycin HCl (Vanco rx to dose) 1 ea DAILY PRN MISC Per rx protocol 10/09/19 04:30 11/08/19 04:29 Vancomycin HCl 1 gm/Sodium Chloride 275 ml @ 183.708 mls/hr Q24H IVPB 10/10/19 10:00 10/14/19 09:59 10/10/19 09:58 Gerardo [place] MD Oct 10, 2019 19:15
--- NOTE | 2019-10-10 19:30 | NUR ---
NURSE NOTES: RECEIVED PATIENT FROM ISHAAN DAVIS. PATIENT IS ASLEEP, ON ROOM AIR, NO ACUTE DISTRESS NOTED. COLE CATHETER IN PLACE, COLE ANCHOR PRESENT, INTACT AND PATENT, DRAINING YELLOW URINE. IV ON UPPER ARM INTACT AND PATENT. WOUND DRESSINGS INTACT AND DRY. PATIENT IS ON G-TUBE FEEDING, TOLERATING FEEDING WELL, NO RESIDUALS. HOB >[address] ON BILATERAL LEGS. BED IS LOCKED AND LOW, BED ALARMS ACTIVE, SIDE RAILS UPX2, AND CALL LIGHT IS WITHIN REACH. WILL CONTINUE TO MONITOR.
--- NOTE | 2019-10-10 19:42 | NUR ---
HAND-OFF: Report given to ISHAAN Rodney.
[2019-10-10 20:00] VITALS: BP 110/46
[2019-10-10] MEDS ORDERED: Sterile Water Irrig 1000ml IRRIG ONE (22:57)
[2019-10-11] VITALS: BP 114/50
[2019-10-11 04:00] VITALS: BP 135/67
[2019-10-11] MEDS: Piperacillin/Tazobactam 3.375 GM in NS 110 ML IVPB SCH ×2 (05:29→13:51)
[2019-10-11] MEDS: NovoLOG Insulin Flexpen SUBQ SCH ×2 (05:45→12:43)
--- NOTE | 2019-10-11 07:18 | NUR ---
NURSE NOTES: Patient alert x1, non-verbal; on room air, no sing of distress and shortness of breath; no sing of chest pain; Tube feeding Glucerna 1.2 running 60cc, no residual, head of the bed elevated, side rails up x2, breaks engaged; dressings dry and intact; will check blood sugar as scheduled; will keep monitoring.
--- NOTE | 2019-10-11 07:23 | NUR ---
HAND-OFF: Report given to ISHAAN Escalera.
--- NOTE | 2019-10-11 07:55 | Cardiac Electrophysiology PN ---
Assessment/Plan Assessment/Plan 1. NSTEMI type 2 due to renal failure with creatinine 1.7. Troponins low and flat. No CP. ECG LBBB Nl EF and no vegetations. On aspirin. Off statin for rhabdomyolysis. Off beta lisbeth for bradycardia 2. Hypertension. On Norvasc 5 daily 3. LBBB 4. Nonsustained VT.Nl EF 5. Acute on chronic diastolic CHF. Echo Nl EF. 6. Urinary tract infection, on IV antibiotic. 7. 4/4 Strep Bacteremia with WBC 25K on Abx Now 10 K. ERIBERTO on 09/10/19 no vegetation. 8. S/P Renal failure. 9. Uncontrolled diabetes 10. Left toe ulcer. On Abx per ID and podiatry 11. Malnutrition. S/P PEG by Dr. Phoenix 10/07/19 CLEM RN Subjective Subjective Comfortable in NAD. PEG feeding ongoing and on abx. No events Objective Last 24 Hour Vital Signs Date Time Temp Pulse Resp B/P (MAP) Pulse Ox O2 Delivery O2 Flow Rate FiO2 10/11/19 04:00 97.9 77 18 135/67 (89) 96 10/11/19 00:00 98.3 81 18 114/50 (71) 97 10/10/19 21:00 Room Air 10/10/19 20:00 98.0 72 18 110/46 (67) 98 10/10/19 16:00 98.9 73 19 115/47 (69) 97 10/10/19 13:06 99.0 10/10/19 12:00 101.5 92 20 110/51 (70) 96 10/10/19 09:00 Room Air 10/10/19 08:00 98.2 84 20 105/45 (65) 96 Intake and Output 10/10/19 10/11/19 19:00 07:00 Intake Total 1602.416 ml 1685.0 ml Output Total 700 ml Balance 902.416 ml 1685.0 ml Free Water 200 ml 200 ml IV Total 682.416 ml 765.0 ml Tube Feeding 720 ml 720 ml Output Urine Total 700 ml Microbiology Date/Time Source Procedure Growth Status 10/09/19 04:45 Urine,Clean Catch Urine Culture - Preliminary Gram Negative Bacillus 1 Resulted Objective HEAD AND NECK: No JVD LUNGS: Clear. CARDIOVASCULAR: Regular S1 and S2 with no gallop or murmur. ABDOMEN: Soft. EXTREMITIES: Left toe ulcer covered with dressing Luis Purdy MD Oct 11, 2019 07:55
[2019-10-11 08:00] VITALS: BP 111/51
[2019-10-11] MEDS: Vancomycin 1 GM in NS 275 ML IVPB SCH (09:53)
--- NOTE | 2019-10-11 10:43 | GI Progress Note ---
Assessment/Plan Problems: (1) FTT (failure to thrive) in adult ICD Codes: R62.7 - Adult failure to thrive SNOMED: 461942597 (2) Anemia ICD Codes: D64.9 - Anemia, unspecified SNOMED: 877954960 (3) Dehydration (4) Diabetes ICD Codes: E11.9 - Diabetes SNOMED: 98521526 Status: stable, unchanged Status Narrative Discussed with Dr. Phoenix. Assessment/Plan abx per ID wound care fu labs s/p PEG placement GTF monitor for residuals slowly dropping H&H>> repeat cbs, check stool ob>>>> neg The patient was seen and examined at bedside and all new and available data was reviewed in the patients chart. I agree with the above findings, impression and plan. (Patient seen earlier today. Signature stamp does not reflect patient encounter time.). - Nelson Phoenix MD Subjective Subjective limited Objective Last 24 Hour Vital Signs Date Time Temp Pulse Resp B/P (MAP) Pulse Ox O2 Delivery O2 Flow Rate FiO2 10/11/19 09:00 Room Air 10/11/19 08:00 98.8 82 18 111/51 (71) 96 10/11/19 04:00 97.9 77 18 135/67 (89) 96 10/11/19 00:00 98.3 81 18 114/50 (71) 97 10/10/19 21:00 Room Air 10/10/19 20:00 98.0 72 18 110/46 (67) 98 10/10/19 16:00 98.9 73 19 115/47 (69) 97 10/10/19 13:06 99.0 10/10/19 12:00 101.5 92 20 110/51 (70) 96 Intake and Output 10/10/19 10/11/19 19:00 07:00 Intake Total 1602.416 ml 1685.0 ml Output Total 700 ml Balance 902.416 ml 1685.0 ml Free Water 200 ml 200 ml IV Total 682.416 ml 765.0 ml Tube Feeding 720 ml 720 ml Output Urine Total 700 ml Height (Feet): 5 Height (Inches): 5.00 Weight (Pounds): 127 General Appearance: WD/WN, no apparent distress, alert Cardiovascular: normal rate Respiratory/Chest: normal breath sounds, no respiratory distress Abdominal Exam: normal bowel sounds, non tender, soft Extremities: normal range of motion, non-tender Angel Valencia NP Oct 11, 2019 10:43
--- NOTE | 2019-10-11 10:52 | NUR ---
NURSE NOTES: I called [facility] office and left a message with Kimberly to get medications order for discharge. waiting for order.
--- NOTE | 2019-10-11 10:53 | NUR ---
NURSE NOTES: I called [facility] office and left a message with Ginna, regarding getting antibiotics order for patient to continue taking home. waiting for order.
--- NOTE | 2019-10-11 11:31 | Discharge Summary ---
Discharge Summary Hospital Course Date of Admission Aug 24, 2019 at 14:32 Date of Discharge 10/11/2019 Admitting Diagnosis AMS HPI Aleja Mcgill is a 84 year old female who was admitted on Aug 24, 2019 at 14 :32 for Altered Mental Status Hospital Course 84-year-old lady from [facility] with history of hypertension, uncontrolled diabetes, and Parkinson disease, who was brought to the emergency room by family member for altered mental status and weakness. #Osteomyelitis left foot/ 1st toe #Severe PVD #Severe sepsis #Group B strep, ESBL UTI and bacteremia #Fever - new 10/08 - s/p 42 days of vancomycin, cefepime, flagyl - vanc/zosyn restarted given fever (10/08 -) - f/u repeat BCx (10/08 -) - ERIBERTO negative for vegetation. surveillance cultures are negative - wound culture right foot with normal maximino but likely polymicrobial infection - monitor labs, recent chest x-ray negative - s/p diflucan (for fungal uti) - ID following -General surgery consult appreciated - Podiatry consult appreciated #Poor oral intake - calorie count reviewed with RD - s/p PEG (10/07/2019) - Tube feeds to be started. -Nutrition consult for bolus feeding recs. Family to be taught on bolus feed, then discharge home, given no insurance. (d/w CM) #Anemia, rule out acute blood loss. rule out GI bleed - improved - stool OB negative - appreciate Heme/onc recs - s/p 1 unit PRBC 09/27/19. Consent obtained from family - trend CBC #Hypokalemia #Hypernatremia resolved #Hypophosphatemia Replace as needed Continue to monitor #Uncontrolled DM II - A1c 9-->insulin sliding scale ac/hs, resistant scale, fsbg controlled #Parkinson's disease #Dementia - c/w PD regimen - supportive care - delirium precautions #NSTEMI type II 2/2 renal failure #HFpEF #HTN #Sinus dorian - resolved -d/c heparin gtt/acs protocol per cards, pt w/no chest pain, stable troponin. -Continue ASA -Cont. to hold statin due to rhabdomyolysis. -Decreased Lopressor from 25 mg to 12.5 mg bid due to low heart rate, then d/c on 08/29 for bradycardia, now resolved off Lopressor - s/p lasix 40 mg BID -Echocardiogram Nl EF -continue amlodipine 5 daily - cardiology consult appreciated #OWEN due to ATN - resolved avoid nephrotoxin medications #stage II sacral decubitus ulcer Appreciate wound consult Wound care Buckner in place for healing of wound Pain regimen #Protein calorie malnutrition -TF as above. Discharge Condition Upon Discharge: stable, unchanged Discharge Vital Signs Last Vital Signs Date Time Temp Pulse Resp B/P (MAP) Pulse Ox O2 Delivery O2 Flow Rate FiO2 10/11/19 09:00 Room Air 10/11/19 08:00 98.8 82 18 111/51 (71) 96 10/07/19 10:50 3 Discharge Disposition Patient was discharged to Discharge Diagnoses: (1) Urinary retention (2) Renal insufficiency (3) NSTEMI (non-ST elevated myocardial infarction) (4) UTI (lower urinary tract infection) (5) Weakness generalized (6) Diabetes (7) Parkinson disease (8) HTN (hypertension) (9) Sepsis (10) Frailty (11) OWEN (acute kidney injury) (12) Dehydration (13) Urinary obstruction (14) ATN (acute tubular necrosis) (15) CVA (cerebral vascular accident) Arnie Bee M.D. Oct 11, 2019 11:31
--- NOTE | 2019-10-11 11:41 | NUR ---
RD ASSESSMENT & RECOMMENDATIONS SEE CARE ACTIVITY FOR COMPLETE ASSESSMENT DAILY ESTIMATED NEEDS: Needs based on Wounds, DM, underweight, wt loss 44.5kg 30-40 kcals/kg 7310-3620 total kcals 1.25-2 g protein/kg 61-98 g total protein 25-30m mL/kg 9426-3895 total fluid mLs NUTRITION DIAGNOSIS: Increased kcal and pro needs r/t wound healing as evidenced by pt w/ multiple areas of skin breakdown including unstageable L hip wounds x2, refer to WC eval for full assessment, pt w/ prolonged poor intake, now s/p PEG placement, on GT feeding + oral grat. CURRENT TF:Glucerna 1.2 @ 60ml/hr x 24 hrs PO DIET RECOMMENDATIONS: ORAL GRAT: CCHO LOW/ texture per [employer]WARDER ENTERAL NUTRITION RECOMMENDATIONS: Glucerna 1.2 @ 55ml/hr x 24 hrs to provide 1320ml, 1584kcal, 79g prot, 1062ml free water - Rec goal rate of 55ml/hr x 24 hrs: meets 100% est kcal/prot needs - HOB over 30 degrees, flush per MD FOR BOLUS FEEDING: - Glucerna 1.5 1 can (237ml) 4x/day to provide 948ml, 1424kcal, 78g prot - H20 flush of 150ml after each bolus ADDITIONAL RECOMMENDATIONS: 1) Wound care:add Vit C 250mg BID + MVI x 1 + Bret BID w/ good TF tolerance @ goal. 2) Calibrated bed scale wts (w/ added P200 mattress + pump) -> calibrated bedscale wt 3/3: 44.5kg/98# 3) Monitor lytes closely, replete as needed . .
[2019-10-11 12:00] VITALS: BP 124/60
--- NOTE | 2019-10-11 13:45 | Hematology/Onc Progress Note ---
Assessment/Plan Assessment/Plan # Anemia of chronic disease due to underlying chronic medical issues, multifactorial v iron deficiency --> Anemia workup has been ordered, rule out gi bleed seen gi --> No evidence of hemolysis is noted, peripheral smear has been reviewed. --> Hgb goal >7. Transfuse prn. --> Epogen or iron at this time is not particularly indicated --> Medications have been reviewed --> low threshold for gi evaluation in case has occult + --> hgb 7.9-->7.5->6.7-->10.8-->10.1-->9.6-->8.7-->8.5 --> OCULT BLOOD--> if + gi debra; negative x3 # Thrombocytosis is likely reactive from multiple wounds, esbl bactremeia --> currently improved --> abx per id --> likely to downtrend shortly # NSTEMI type 2 as per cards, Dr. Purdy --> Nl EF and no vegetations. On aspirin --> Off statin for rhabdomyolysis # Hypertension. On Norvasc 5 --> sbp goal <140 # Acute on chronic diastolic CHF. Echo Nl EF. --> per Dr. Purdy # Urinary tract infection, on IV antibiotic. --> per id # 11/08 Strep Bacteremia with WBC 25K. Down to 6 K on Abx --> No endocarditis. ERIBERTO on 09/10/19 no vegetation. # Uncontrolled diabetes # DYpshagia s/p peg # Left toe ulcer. On iv Abx. --> per id # Dvt ppx heparin sq Appreciate consultation, brianne RN Subjective Constitutional: Denies: no symptoms, chills, fever, malaise, weakness, other HEENT: Denies: no symptoms, eye pain, blurred vision, tearing, double vision, ear pain, ear discharge, nose pain, nose congestion, throat pain, throat swelling, mouth pain, mouth swelling, other Cardiovascular: Denies: no symptoms, chest pain, edema, irregular heart rate, lightheadedness, palpitations, syncope, other Gastrointestinal/Abdominal: Denies: no symptoms, abdomen distended, abdominal pain, black stools, tarry stools, blood in stool, constipated, diarrhea, difficulty swallowing, nausea, poor appetite, poor fluid intake, rectal bleeding , vomiting, other Genitourinary: Denies: no symptoms, burning, discharge, frequency, flank pain, hematuria, incontinence, pain, urgency, other Neurologic/Psychiatric: Denies: no symptoms, anxiety, depressed, emotional problems, headache, numbness, paresthesia, pre-existing deficit, seizure, tingling, tremors, weakness, other Endocrine: Denies: no symptoms, excessive sweating, flushing, intolerance to cold, intolerance to heat, increased hunger, increased thirst, increased urine, unexplained weight gain, unexplained weight loss, other Hematologic/Lymphatic: Denies: no symptoms, anemia, easy bleeding, easy bruising, adenopathy, other Allergies: Coded Allergies: No Known Allergies (Unverified , 10/23/13) Subjective 09/26: no bleeding,labs reviewed, no night sweats, no hemolysis hgb is 7.5 09/27: hgb lower again, will order occult blood, dw pcp 09/29: labs have been reviewed, no bleeding or chills, hgb >10 09/30: no events, no bleeding, no night sweats, hgb better 10/01: confused, on abx, no acute events, PT for today 10/06: no bleeding or chills, no night sweats 10/07: labs have been reviewed, no major bleeding, cbc noted 10/08: temp 102.2 overnight, on room air, h/h stable, cxr to r/o pna 10/09: peg tube remains functional, no bleeding, on peg tube feeds, labs noted 10/10: peg feeds is ongoing, no bleeding or night sweats reported Objective Objective Current Medications Medications (Trade) Dose Ordered Sig/Krystin Route PRN Reason Start Time Stop Time Status Last Admin Dose Admin Acetaminophen (Tylenol) 650 mg Q6H PRN ORAL Mild Pain/Temp > 100.5 09/27/19 18:19 10/27/19 18:18 10/11/19 12:41 Collagenase (Santyl) 1 applic DAILY TOPIC 10/08/19 15:30 11/07/19 15:29 10/11/19 09:52 Dextrose (Dextrose 50%) 25 ml Q30M PRN IV Hypoglycemia 09/30/19 07:00 10/30/19 06:59 Dextrose (Dextrose 50%) 50 ml Q30M PRN IV Hypoglycemia 09/30/19 07:00 10/30/19 06:59 Insulin Aspart (NovoLOG) BEFORE MEALS AND HS SUBQ 09/30/19 11:30 10/30/19 11:29 10/11/19 12:43 Piperacillin Sod/ Tazobactam Sod 3.375 gm/Sodium Chloride 110 ml @ 27.5 mls/hr EVERY 8 HOURS IVPB 10/09/19 06:00 10/14/19 05:59 10/11/19 05:29 Sodium Chloride 1,000 ml @ 50 mls/hr Q20H IV 10/09/19 15:30 11/08/19 15:29 10/11/19 09:54 Vancomycin HCl (Vanco rx to dose) 1 ea DAILY PRN MISC Per rx protocol 10/09/19 04:30 11/08/19 04:29 Vancomycin HCl 1 gm/Sodium Chloride 275 ml @ 183.708 mls/hr Q24H IVPB 10/10/19 10:00 10/14/19 09:59 10/11/19 09:53 Last 24 Hour Vital Signs Date Time Temp Pulse Resp B/P (MAP) Pulse Ox O2 Delivery O2 Flow Rate FiO2 10/11/19 13:11 98.8 10/11/19 12:00 98.5 90 20 124/60 (81) 96 10/11/19 09:00 Room Air 10/11/19 08:00 98.8 82 18 111/51 (71) 96 10/11/19 04:00 97.9 77 18 135/67 (89) 96 10/11/19 00:00 98.3 81 18 114/50 (71) 97 10/10/19 21:00 Room Air 10/10/19 20:00 98.0 72 18 110/46 (67) 98 10/10/19 16:00 98.9 73 19 115/47 (69) 97 10/10/19 12:00 101.5 92 20 110/51 (70) 96 10/10/19 09:00 Room Air 10/10/19 08:00 98.2 84 20 105/45 (65) 96 10/10/19 04:00 98.6 84 18 107/45 (65) 96 10/10/19 00:00 99.0 88 20 109/47 (67) 96 10/09/19 21:00 Room Air 10/09/19 20:00 98.8 84 20 105/51 (69) 96 10/09/19 16:00 97.7 78 18 110/60 (77) 97 Intake and Output 10/10/19 10/11/19 19:00 07:00 Intake Total 1602.416 ml 1685.0 ml Output Total 700 ml Balance 902.416 ml 1685.0 ml Free Water 200 ml 200 ml IV Total 682.416 ml 765.0 ml Tube Feeding 720 ml 720 ml Output Urine Total 700 ml Labs Test 10/09/19 04:45 10/09/19 05:27 10/10/19 05:30 10/10/19 05:50 Urine Color Yellow Urine Appearance Slightly cloudy Urine pH 6 (4.5-8.0) Urine Specific [place] 1.010 (1.005-1.035) Urine Protein 2+ (NEGATIVE) Urine Glucose (UA) 4+ (NEGATIVE) Urine Ketones Negative (NEGATIVE) Urine Blood 4+ (NEGATIVE) Urine Nitrite Negative (NEGATIVE) Urine Bilirubin Negative (NEGATIVE) Urine Urobilinogen Normal MG/DL (0.0-1.0) Urine Leukocyte Esterase 3+ (NEGATIVE) Urine RBC 10-15 /HPF (0 - 2) Urine WBC 30-40 /HPF (0 - 2) Urine Squamous Epithelial Cells Few /LPF (NONE/OCC) Urine Bacteria Moderate /HPF (NONE) Urine Coarse Granular Casts 0-2 /LPF (NONE) Urine Yeast Many /HPF (NONE) White Blood Count 8.9 K/UL (4.8-10.8) 10.0 K/UL (4.8-10.8) Red Blood Count 3.04 M/UL (4.20-5.40) 2.96 M/UL (4.20-5.40) Hemoglobin 8.7 G/DL (12.0-16.0) 8.5 G/DL (12.0-16.0) Hematocrit 26.3 % (37.0-47.0) 25.5 % (37.0-47.0) Mean Corpuscular Volume 87 FL (80-99) 86 FL (80-99) Mean Corpuscular Hemoglobin 28.7 PG (27.0-31.0) 28.8 PG (27.0-31.0) Mean Corpuscular Hemoglobin Concent 33.1 G/DL (32.0-36.0) 33.4 G/DL (32.0-36.0) Red Cell Distribution Width 16.2 % (11.6-14.8) 16.4 % (11.6-14.8) Platelet Count 276 K/UL (150-450) 252 K/UL (150-450) Mean Platelet Volume 6.3 FL (6.5-10.1) 6.3 FL (6.5-10.1) Neutrophils (%) (Auto) 74.8 % (45.0-75.0) 72.4 % (45.0-75.0) Lymphocytes (%) (Auto) 17.2 % (20.0-45.0) 16.7 % (20.0-45.0) Monocytes (%) (Auto) 5.5 % (1.0-10.0) 7.9 % (1.0-10.0) Eosinophils (%) (Auto) 1.6 % (0.0-3.0) 2.2 % (0.0-3.0) Basophils (%) (Auto) 1.0 % (0.0-2.0) 0.8 % (0.0-2.0) Sodium Level 130 MMOL/L (136-145) 134 MMOL/L (136-145) Potassium Level 4.2 MMOL/L (3.5-5.1) 4.6 MMOL/L (3.5-5.1) Chloride Level 96 MMOL/L (98-107) 99 MMOL/L (98-107) Carbon Dioxide Level 23 MMOL/L (21-32) 28 MMOL/L (21-32) Anion Gap 11 mmol/L (5-15) 7 mmol/L (5-15) Blood Urea Nitrogen 15 mg/dL (7-18) 19 mg/dL (7-18) Creatinine 0.9 MG/DL (0.55-1.30) 0.9 MG/DL (0.55-1.30) Estimat Glomerular Filtration Rate 59.4 mL/min (>60) 59.4 mL/min (>60) Glucose Level 271 MG/DL (74-106) 213 MG/DL (74-106) Calcium Level 7.7 MG/DL (8.5-10.1) 7.9 MG/DL (8.5-10.1) Total Bilirubin 0.2 MG/DL (0.2-1.0) 0.2 MG/DL (0.2-1.0) Aspartate Amino Transf (AST/SGOT) 52 U/L (15-37) 61 U/L (15-37) Alanine Aminotransferase (ALT/SGPT) 22 U/L (12-78) 25 U/L (12-78) Alkaline Phosphatase 121 U/L (46-116) 144 U/L (46-116) Total Protein 6.3 G/DL (6.4-8.2) 6.4 G/DL (6.4-8.2) Albumin 1.4 G/DL (3.4-5.0) 1.3 G/DL (3.4-5.0) Globulin 4.9 g/dL 5.1 g/dL Albumin/Globulin Ratio 0.3 (1.0-2.7) 0.3 (1.0-2.7) Stool Occult Blood Negative (NEGATIVE) Height (Feet): 5 Height (Inches): 5.00 Weight (Pounds): 127 Objective gen: confused pulm:: crackles b/l heent: nc, at neck supple cv: rrr, no mgr abd: soft, nt nd ++ peg ext: wounds on lower ext left toe ulceration covered dressing++ Nehemiah Randhawa MD Oct 11, 2019 13:45
--- NOTE | 2019-10-11 14:19 | Surgery Progress Note ---
Surgery Progress Note Subjective Additional Comments Keeps telling family she wants to go home. Family at the bedside. I long discussion about the care plan current plan and goals of care with family. Family at bedside expressed understanding all questions were answered. DC planning Objective Last 24 Hour Vital Signs Date Time Temp Pulse Resp B/P (MAP) Pulse Ox O2 Delivery O2 Flow Rate FiO2 10/11/19 13:11 98.8 10/11/19 12:00 98.5 90 20 124/60 (81) 96 10/11/19 09:00 Room Air 10/11/19 08:00 98.8 82 18 111/51 (71) 96 10/11/19 04:00 97.9 77 18 135/67 (89) 96 10/11/19 00:00 98.3 81 18 114/50 (71) 97 10/10/19 21:00 Room Air 10/10/19 20:00 98.0 72 18 110/46 (67) 98 10/10/19 16:00 98.9 73 19 115/47 (69) 97 I&O Intake and Output 10/10/19 10/11/19 19:00 07:00 Intake Total 1602.416 ml 1685.0 ml Output Total 700 ml Balance 902.416 ml 1685.0 ml Free Water 200 ml 200 ml IV Total 682.416 ml 765.0 ml Tube Feeding 720 ml 720 ml Output Urine Total 700 ml Dressing: dry Wound: clean Cardiovascular: RSR Respiratory: clear Abdomen: soft, non-tender, present bowel sounds Extremities: no cyanosis, other Plan Problems: (1) Decubitus skin ulcer Assessment & Plan: Base of sacral wound is 90% soft necrosis with surrounding moist erythematous margins.Wound is malodorous Periwound is erythematous without induration or elevation in skin temp.(L)8cm x (W)10.5cm. Darker skin tone noted to R and L ischium. Unstageable pressure injury noted L hip Base of wound 90% necrotic cap that is semi-detached at edges,Oozing small amt brown exudate. Remaining 10% of wound is moist and martha . Edges are erythematous and flat.Wound is malodorous. Periwound is erythematous and indurated. No elevation in skin temp. (L)2.5cm x ( W)1.9cm. Two small dark skin pigmentations R Hip that are in close proximity. NO erythema or induration noted. L foot edematous. Dorsal aspect of L foot is dusky. Necrotic ulcer L hallux /L 1st metatarsal (L)3.7cm x (W)5.2cm.Edges are moist and erythematous. Wound is malodorous. Small amt brown exudate noted. Periwound including L st metatarsal is dusky and fluctuant. L heel is fluctuant with non-blanching erythema. Stable dry eschar noted to distal /lateral R foot. Periwound without erythema, induration or fluctuance.(L)0.4cm x (W)0.3cm. Stable dry eschar noted to lateral R 5th metatarsal.(L)0.3cm x (W)0.3cm. NO erythema,induration or fluctuance periwound. R heel is boggy with non-blanching erythema. change Tx orders for Sacrum and L hip to Santyl Moist gauze daily and prn. Primary nurse is aware and orders changed. left foot improving no drainage now Unstageable pressure injury Sacrum. Base of wound has 80% mixed soft necrosis and slough ,20%pink granulation.Macerated borders.(L)9cm x (W)8.5cm. Periwound skin tone is dark without erythema or induration. Resolving pressure injury L trochanter. [place] granulation at base of wound with dry pink epithelial borders. (L)2.2cm x (W)3.3cm. No odor or exudate noted. No evidence of skin breakdown periwound. Unstageable pressure injury L hallux.. Base of wound 100% necrotic with semidetached borders that are erythmatous and moist.(L)4.8cm x (W)5.7cm. Wound is malodorous. Periwound is fluctuant. Dorsal aspect of L foot is less dusky in comparison to last wound assessment. L 2nd metatarsal dusky but improving Both heels are soft but blanchable. eschar on left foot off now wound bed with good tissue no drainage minimal slough cross hatched sacrum foot improved plan to stop santyl soon unstageable Sacral Pressure Injury resolving. Wound is smaller in size. 90% Loose fibrinous slough with surrounding 10% beefy red granulation at base of wound. Edges adherent to base of wound. Mild odor noted.Small amt sanguineous exudate. No erythema or evidence of further skin breakdown periwound. (L)6.6cm x (W)7.3cm. R trochanteric pressure injury has resolved. Hyperpigmentation noted. L trochanter is blanchable with small dark skin pigmentation noted. Unstageable pressure injury L hallux. Wound is malodorous. Base of wound is 100 % soft necrosis and erythematous borders. Small amt brown exudate noted. (L) 4.3cm x (W)5.7cm. Stable dry brown eschar L lateral malleolus. No erythema or fluctuance periwound. Wound Tx are effective and continued as ordered. All wound prevention protocols continued as care-planned Tx.Plan: Cleanse Sacral wound with Saline. Apply Nickel thick Layer Santyl with Saline moistened Gauze. Apply Moisture Barrier Paste periwound. Cover with Optifoam drsg. Daily and prn. Cleanse L hip wound with Saline. Apply Nickel Thick layer of Santyl with Saline Moistened Gauze. Apply Moisture Barrier Paste periwound. Cover with Optifoam drsg.Daily and prn. Cleanse Wound L Hallux with Saline. Apply Nickel thick Layer Santyl with Saline moistened gauze. Cover with ABD Pad and wrap with Kerlix Daily and prn. Apply [place] Skin Barrier to Distal/Lateral R foot /R 5th metatarsal Daily. Apply Cavilon SKin Barrier to both heels. Cover each heel with Optifoam drsg. Change every 7 days and prn. Apply [place] Skin Barrier to R hip. Cover with Optifoam drsg. Change every 7 days and prn. APM/YURIY Mattress overlay. Reposition at least every 2hours or as tolerated. Off-load heels with pillow. (2) Sepsis Assessment & Plan: Leukocytosis, abnormal labs, tachycardic, per report fevers UA identified urosepsis bacteremic leukocytosis resolved improving overall anemia fevers resolved On antibiotics as per infectious disease Trend labs Okay for diet A.m. labs Wounds unlikely etiology of sepsis as they are chronic and do not look actively infected discussed with medical teams discussed with podiatry - orders placed by no note identified. as per podiatry IV abx 6 weeks over amputation. plan for abx d/c planning cont abx oral for d/c outpatient wound care follow up We will follow with recommendations thank you for let me participate in patient' s care Additional Comments Okay to discharge from surgical standpoint. I long session with family at the bedside regards to care plan goals of care andWhat needs to be done upon discharge. Darrius Miller Oct 11, 2019 14:19
--- NOTE | 2019-10-11 16:05 | NUR ---
NURSE NOTES: Patient discharged to Home by private vehicle, accompanied by patient's daughter and grand daughter; IV access and name tag removed removed. Patient teaching provided regarding the bolus feeding recommended by izabel Ernst, 240cc x4 per day, flush 150 cc each feeding; Family also provided with 6 bottles of Glucerna 1.2. patient's family demonstrated by the teaching provided to them; patient teaching also provided regarding wound care; wound supplies provided; Original prescription given to family member and copy kept on file; belonging lists signed by patients's daughter. Printed package given to the family; patient left the floor by wheelchair; patient was stable upon discharge. [place] kept upon discharge.
== END 2019-10-11 16:00 | disposition home or self-care (01) | DRG 720 ==
LOC: EMR 14:29 → 2W 14:32 → EDBEDREQSVC 14:42 → EDBEDREQ 14:42 → 2W 20:03 → 2E 09-02 23:13 → 4E 09-11 18:31
PROC: 0DH63UZ Insertion of Feeding Device into Stomach, Percutaneous Approach (ICD-10-PCS; principal; 2019-10-07 09:56)
DX: A41.9 Sepsis, unspecified organism (principal); G92 Toxic encephalopathy; N17.0 Acute kidney failure with tubular necrosis; I50.33 Acute on chronic diastolic (congestive) heart failure; N39.0 Urinary tract infection, site not specified; E87.0 Hyperosmolality and hypernatremia; E11.65 Type 2 diabetes mellitus with hyperglycemia; G20 Parkinson's disease; R65.20 Severe sepsis without septic shock; E87.6 Hypokalemia; E11.621 Type 2 diabetes mellitus with foot ulcer; L97.529 Non-pressure chronic ulcer of other part of left foot with unspecified severity; E46 Unspecified protein-calorie malnutrition; Z68.21 Body mass index [BMI] 21.0-21.9, adult; R62.7 Adult failure to thrive; K29.40 Chronic atrophic gastritis without bleeding; I21.A1 Myocardial infarction type 2; I11.0 Hypertensive heart disease with heart failure; F02.80 Dementia in other diseases classified elsewhere, unspecified severity, without behavioral disturbance, psychotic disturbance, mood disturbance, and anxiety; E11.69 Type 2 diabetes mellitus with other specified complication; E11.51 Type 2 diabetes mellitus with diabetic peripheral angiopathy without gangrene; M86.172 Other acute osteomyelitis, left ankle and foot; I95.9 Hypotension, unspecified; R68.0 Hypothermia, not associated with low environmental temperature; I44.7 Left bundle-branch block, unspecified; L89.152 Pressure ulcer of sacral region, stage 2; I47.1 Supraventricular tachycardia; M62.82 Rhabdomyolysis; E86.0 Dehydration; R33.9 Retention of urine, unspecified; D64.9 Anemia, unspecified; E83.39 Other disorders of phosphorus metabolism
CPT/HCPCS: 36415; 70450; 71045; 74177; 80048; 80053; 80202; 81001; 81003; 82270; 82550; 82728; 82962; 83036; 83540; 83550; 83605; 83735; 83880; 84100; 84484; 85007; 85025; 85610; 85651; 85730; 86140; 86850; 86900; 86901; 86920; 87040; 87070; 87086; 87181; 87205; 93005; 93306; 93312; 93925; 93970; 94003; 94150; 96361; 96365; 99291; J1815; J7030; J8499